=== PATIENT | female | born 1945 | race American Indian/Alaskan Native ===

== ENCOUNTER 2016-06-11 18:21 | Inpatient (IN) | payer MEDICARE, OTHER ==
[2016-06-11 18:21] VITALS: BMI 23.8
--- NOTE | 2016-06-11 18:56 | C.PDOC ---
History Of Present Illness A 70 year old female, whose past medical history includes Lung Cancer and Right Lobectomy, presents to the emergency room with increased shortness of breath that began today. Patient also notes that she experiences baseline persistent tachycardia. There are no exacerbating or relieving factors. Patient denies any chest pain, headaches, dizziness, fever, nausea, vomiting, diarrhea, or any other complaints. Time Seen by Provider: 06/11/16 18:40 Chief Complaint (Nursing): Shortness Of Breath History Per: Patient History/Exam Limitations: no limitations Onset/Duration Of Symptoms: Hrs Current Symptoms Are (Timing): Still Present Severity: Mild Associated Symptoms: denies: Fever, Chest Pain Recent travel outside of the [place]: No Past Medical History Reviewed: Historical Data, Nursing Documentation, Vital Signs Vital Signs: Last Vital Signs Temp 99.4 F 06/11/16 18:34 Pulse 122 H 06/11/16 21:43 Resp 20 06/11/16 21:43 BP 127/81 06/11/16 21:43 Pulse Ox 96 06/11/16 22:52 - Medical History PMH: Anemia, Arthritis, Asthma, Cardia Arrhythmia, COPD, Diabetes, HTN, Hypercholesterolemia, Kidney Stones (CYSTO/STENT 2009), Malignancy (Lung), Pulmonary Embolism, Chronic Kidney Disease Denies: Sleep Apnea Surgical History: Coronary Stent (2004) Denies: Pacemaker - [facility] Procedures CLOSED [PERCUTANEOUS] [NEEDLE] BIOPSY OF LUNG (12/05/13) CYSTOGRAM NEC (11/28/13) DRAINAGE OF RIGHT KNEE JOINT, PERCUTANEOUS APPROACH, DIAGN (01/29/16) EXCISION OF DESCENDING COLON, ENDO, DIAGN (03/25/16) INFLUENZA VACCINATION (01/31/14) INSERT INTERCOSTAL CATH (12/05/13) OTHER LOBECTOMY OF LUNG (01/31/14) RETROGRADE PYELOGRAM (11/28/13) VACCINATION NEC (12/05/13) Family History: States: Unknown Family Hx - Social History Hx Tobacco Use: Yes (former smoker) Hx Alcohol Use: No Hx Substance Use: No - Immunization History Hx Tetanus Toxoid Vaccination: No Hx Influenza Vaccination: No Hx Pneumococcal Vaccination: No Review Of Systems Except As Marked, All Systems Reviewed And Found Negative. Constitutional: Negative for: Fever Cardiovascular: Negative for: Chest Pain Respiratory: Positive for: Shortness of Breath Gastrointestinal: Negative for: Nausea, Vomiting, Diarrhea Neurological: Negative for: Headache, Dizziness Physical Exam - Physical Exam Appears: Well, Non-toxic, No Acute Distress Skin: Normal Color, Warm, Dry Head: Atraumatic, Normacephalic Eye(s): bilateral: Normal Inspection Neck: Normal ROM, Supple Chest: Symmetrical, No Tenderness Cardiovascular: Rhythm Regular, Other (Tachycardic) Respiratory: Decreased Breath Sounds (Diminished breath sounds on the left side) Gastrointestinal/Abdominal: Soft, No Tenderness, No Guarding, No Rebound Extremity: Normal ROM, No Tenderness Neurological/Psych: Oriented x3, Normal Speech, Normal Cognition ED Course And Treatment - Laboratory Results Result Diagrams: 06/11/16 19:42 06/11/16 19:42 Lab Interpretation: Abnormal (d-dimer 35) ECG: Interpreted By Ny ECG Rhythm: Sinus Tachycardia ECG Interpretation: Abnormal Rate From EC O2 Sat by Pulse Oximetry: 96 Pulse Ox Interpretation: Normal - Radiology CXR: Interpreted by Ny CXR Interpretation: Yes: No Acute Disease, Other (+ lung masses, increased from prior) - CT Scan/US Chest CT Other Rad Studies (CT/US): Read By Radiologist, Radiology Report Reviewed CT/US Interpretation: Worsening in appearance/increase in size in previously reported lesions. Additionally, compared to. the prior study, there is a new/ significant increase in size in a cavitary lesion at the right lung base. abutting the pleura measuring approximately 5 cm in maximal dimension. There is also a new large. lesion in the lateral inferior left upper lobe measuring approximately 4.5 cm in maximal dimension. This process appears to extend along the fissure superiorly also abutting the pleura with interstitial. infiltrative process as well as nodularity. Reevaluation Time: 22:44 Reassessment Condition: Improved - Physician Consult Information Outcome Of Conversation: [phone]: calls to Dr. Jin faye to Tele Obs. Consider nuclear VQ scan in AM for suspected PE Medical Decision Making Medical Decision Making: Plan: -- EKG -- CXR -- Labs worstening lung CA, suspect underlying PE, lovenox SQ empirically, pending VQ in AM Code Status? Disposition Doctor Will See Patient In The: Hospital Counseled Patient/Family Regarding: Studies Performed, Diagnosis - Disposition Disposition: HOSPITALIZED Disposition Time: 22:45 Condition: FAIR - Clinical Impression Clinical Impression: Tachycardia, Lung cancer - Scribe Statement The provider has reviewed the documentation as recorded by the Scribe Cliff Magana All medical record entries made by the Scribe were at my direction and personally dictated by me. I have reviewed the chart and agree that the record accurately reflects my personal performance of the history, physical exam, medical decision making, and the department course for this patient. I have also personally directed, reviewed, and agree with the discharge instructions and disposition.
[2016-06-11] MEDS ORDERED: Sodium Chloride 0.9% 1,000 ML IV ONE (19:35)
[2016-06-11] MEDS ORDERED: Sodium Chloride 0.9% 1,000 ML ONE (19:41)
[2016-06-11 19:46] LABS: BASO % 0.1 % (0.0-2.0); HEMATOCRIT 38.2 % (34.0-47.0); LYMPH # 0.9 K/uL (1.0-4.3); LYMPH % 11.3 % (20.0-40.0); MEAN CELL VOLUME 84.6 fL (81.0-99.0); MEAN CORPUSCULAR HGB CONC 33.1 g/dL (33.0-37.0); MEAN PLATELET VOLUME 8.2 fL (7.2-11.7); MONO % 26.5 % (0.0-10.0); NRBC % 0.3 % (0.0-2.0); PLATELET COUNT 148 K/uL (130-400); RED CELL DISTRIBUTION WIDTH 15.2 % (11.5-14.5); WHITE BLOOD COUNT 7.6 K/uL (4.8-10.8)
[2016-06-11 19:55] LABS: POTASSIUM 4.3 mmol/L (3.6-5.2)
[2016-06-11 19:58] LABS: ALB/GLOB RATIO 0.8 (1.0-2.1); BILIRUBIN,TOTAL 0.8 mg/dL (0.2-1.3); CALCIUM 8.3 mg/dl (8.6-10.4); TOTAL PROTEIN 7.3 g/dL (6.3-8.3)
[2016-06-11 20:12] LABS: TROPONIN I 0.104 ng/mL (0.00-0.120)
[2016-06-11] MEDS ORDERED: Enoxaparin 40 mg Syringe SC STA (20:28)
[2016-06-11] MEDS ORDERED: Enoxaparin 80 mg Syringe ONE (20:34)
[2016-06-11 20:44] LABS: NEUTROPHIL 60 % (50-75); TOTAL CELLS COUNTED 100
--- NOTE | 2016-06-11 22:41 | CT ---
EXAM: CT Chest Without Intravenous Contrast CLINICAL HISTORY: 70 years old, female; Pain and signs and symptoms and condition or disease; Other: Lung ca; Shortness of breath; Chest pain; Type not specified; Additional info: R lung ca, ? lobectomy, + tachy/sob TECHNIQUE: Axial computed tomography images of the chest without intravenous contrast. This CT exam was performed using one or more of the following dose reduction techniques: automated exposure control, adjustment of the mA and/or kV according to patient size, and/or use of iterative reconstruction technique. Coronal and sagittal reformatted images were created and reviewed. COMPARISON: CT - CHEST,ABDOMEN,PELVIS W 05/07/2016 1:09:03 PM FINDINGS: Again noted is the previously reported large mass with associated consolidation in the superior segment of the right lower lobe which is slightly increased in size. Anterior to this is a mass measuring approximately 2 cm in maximal dimension. Additional cavitary appearing lesion also noted just inferior to this in the right lower lobe. Compared to the prior study, there is a new/significant increase in size in a cavitary lesion at the right lung base abutting the pleura measuring approximately 5 cm in maximal dimension. There is also a new large lesion in the lateral inferior left upper lobe measuring approximately 4.5 cm in maximal dimension. This process appears to extend along the fissure superiorly also abutting the pleura with interstitial infiltrative process as well as nodularity. Interstitial lung disease, centrilobular emphysema at and focal reticular nodular scarring. Mediastinal and right hilar adenopathy. Evaluation of za limited without intravenous contrast. Atherosclerosis. Coronary artery calcification. 2 cm hypoattenuating lesion noted in the left hepatic lobe. Partial visualization of a severely dilated left collecting system. Evidence of right renal atrophy and dilated collecting system. Appearance is similar to prior study. Question chronic ureteropelvic junction obstruction. IMPRESSION: Worsening in appearance/increase in size in previously reported lesions. Additionally, compared to the prior study, there is a new/significant increase in size in a cavitary lesion at the right lung base abutting the pleura measuring approximately 5 cm in maximal dimension. There is also a new large lesion in the lateral inferior left upper lobe measuring approximately 4.5 cm in maximal dimension. This process appears to extend along the fissure superiorly also abutting the pleura with interstitial infiltrative process as well as nodularity. Please see additional details/findings as above.
[2016-06-11] MEDS ORDERED: Sodium Chloride 0.45% 1,000 ML IV SCH (23:00)
[2016-06-11] MEDS ORDERED: SODIUM CHLORIDE 0.9% IV SCH (23:00)
[2016-06-11] MEDS ORDERED: HEPARIN IV SCH (23:00)
[2016-06-11] MEDS ORDERED: Heparin25000 units/250ml 1/2NS 250 ML IV SCH (23:27)
[2016-06-11] MEDS ORDERED: Heparin25000 units/250ml 1/2NS 250 ML IV PRN (23:42)
[2016-06-12] MEDS ORDERED: MethylPREDNISolone 40 mg Vial ONE ×2 (00:09→05:46)
[2016-06-12 00:23] LABS: INR 1.2
[2016-06-12] MEDS: Albuterol 0.083% Inhal Sol (2.5 mg/3 mL) UD INH SCH ×2 (04:19→10:38)
[2016-06-12 06:11] LABS: BASO % 0.1 % (0.0-2.0); HEMATOCRIT 35.2 % (34.0-47.0); LYMPH # 0.5 K/uL (1.0-4.3); LYMPH % 5.8 % (20.0-40.0); MEAN CELL VOLUME 85.4 fL (81.0-99.0); MEAN CORPUSCULAR HEMOGLOBIN 28.1 pg (27.0-31.0); MEAN CORPUSCULAR HGB CONC 32.9 g/dL (33.0-37.0); MEAN PLATELET VOLUME 7.7 fL (7.2-11.7); MONO % 11.7 % (0.0-10.0); NRBC % 0.1 % (0.0-2.0); PLATELET COUNT 144 K/uL (130-400); RED CELL DISTRIBUTION WIDTH 15.3 % (11.5-14.5); WHITE BLOOD COUNT 8.2 K/uL (4.8-10.8)
[2016-06-12 06:23] LABS: POTASSIUM 4.5 mmol/L (3.6-5.2)
[2016-06-12 06:25] LABS: BILIRUBIN,TOTAL 0.7 mg/dL (0.2-1.3)
[2016-06-12 06:26] LABS: ALB/GLOB RATIO 0.9 (1.0-2.1); CALCIUM 7.3 mg/dl (8.6-10.4); TOTAL PROTEIN 6.5 g/dL (6.3-8.3)
[2016-06-12] MEDS ORDERED: (Novolog) Insulin Aspart, Recombinant 100 u/ml 10 ml vial ONE (07:35)
[2016-06-12] MEDS: (Novolog) Insulin Aspart, Recombinant 100 u/ml 10 ml vial SC SCH ×4 (07:37→23:21)
[2016-06-12 08:18] LABS: NEUTROPHIL 70 % (50-75); TOTAL CELLS COUNTED 100
--- NOTE | 2016-06-12 08:21 | RAD ---
PROCEDURE: CHEST RADIOGRAPH, 1 VIEW HISTORY: Shortness of breath COMPARISON: 05/07/2016 FINDINGS: LUNGS: Persistent large mass in the right suprahilar region. Additional patchy consolidation in the lateral aspect of the left midlung zone. Patchy bibasilar airspace opacities. PLEURA: No pneumothorax or pleural fluid seen. CARDIOVASCULAR: Normal. OSSEOUS STRUCTURES: No significant abnormalities. VISUALIZED UPPER ABDOMEN: Normal. OTHER FINDINGS: Right chest wall port with tip extending to the cavoatrial junction. IMPRESSION: Persistent large mass in the right suprahilar region. Additional patchy consolidation in the lateral aspect of the left midlung zone. Patchy bibasilar airspace opacities.
[2016-06-12] MEDS ORDERED: (Novolog) Insulin Aspart, Recombinant 100 u/ml 10 ml vial SC SCH (10:00)
[2016-06-12] MEDS ORDERED: Albuterol-Ipratrop 3 mg / 0.5 (3 ml) UD INH STA (10:06)
[2016-06-12] MEDS ORDERED: Albuterol-Ipratrop 3 mg / 0.5 (3 ml) UD ONE (10:12)
[2016-06-12] MEDS ORDERED: Sodium Chloride 0.9% 1,000 ML ONE (10:21)
[2016-06-12] MEDS: Pantoprazole 40 mg EC Tab PO SCH (10:29)
[2016-06-12] MEDS: GlipiZIDE 5 mg SR Tab PO SCH (10:29)
[2016-06-12] MEDS: Promethazine DM 6.25 mg-15 mg/5 ml Syrup PO SCH ×4 (10:37→18:31)
--- NOTE | 2016-06-12 12:39 | NM ---
COMPARISON: Comparison is made to the previous CT of the chest without contrast done on 06/11/2016 previous Lantus scan dated 04/29/2016. TECHNIQUE: 8.2 mCi technetium 99-m Xe-133 Gas. 3.4 mCI technetium 99-m MAA administered intravenously. FINDINGS: VENTILATION COMPONENT: Moderate size ventilation defect is again noted at the right upper lung similar to the previous study. PERFUSION COMPONENT: Interval appearance of new nonsegmental perfusion defect at the peripheral left lung since the previous exam. This perfusion defect is likely corresponding to the new consolidation seen in the recent CT along the left fissure. Otherwise re- demonstration of previously seen perfusion defects in the right lung. IMPRESSION: Interval appearance of small nonsegmental triple match defects at the left lung. Re- demonstration of previously seen triple match defects in the right lung. Low to intermediate probability ventilation perfusion scan for pulmonary embolism.
[2016-06-12] MEDS: Albuterol-Ipratrop 3 mg / 0.5 (3 ml) UD INH SCH ×2 (13:59→19:20)
[2016-06-12 14:22] LABS: POTASSIUM 3.9 mmol/L (3.6-5.2)
[2016-06-12 14:24] LABS: ALB/GLOB RATIO 0.8 (1.0-2.1); BILIRUBIN,TOTAL 0.4 mg/dL (0.2-1.3); TOTAL PROTEIN 6.4 g/dL (6.3-8.3)
[2016-06-12 14:25] LABS: CALCIUM 7.4 mg/dl (8.6-10.4)
--- NOTE | 2016-06-12 14:42 | CON ---
DATE: 06/12/2016 REASON FOR CONSULTATION: Shortness of breath and chest discomfort. HISTORY OF PRESENT ILLNESS: The patient is a 70-year-old -[place] female who has a history o f squamous cell carcinoma, underwent right upper lobectomy in 2003 and now she is being treated for r ecurrence with chemotherapy. The patient has a history of chronic renal insufficiency as well as chu ateral hydronephrosis. The patient also has intermediate probability for pulmonary embolism in the p ast and is being treated for that. The patient has a history of pancytopenia and epistaxis in the pa st. She presented because of shortness of breath and chest discomfort. She denies any recurrence of epistaxis and denies any hemoptysis. SOCIAL HISTORY: The patient is a former smoker. MEDICATIONS: Hydralazine 50 mg t.i.d., Coreg 3.125 mg twice a day, Crestor 10 mg once a day, glipizi de at 5 mg once a day, intravenous heparin infusion in a therapeutic regimen for pulmonary embolism. Phenergan DM syrup 6.25 mg t.i.d., Singulair 10 mg once a day, Solu-Medrol 40 mg intravenously q. 6 hours, Protonix 40 mg p.o. once a day. REVIEW OF SYSTEMS: No fever or chills. No hemoptysis. No epistaxis. No dizziness or syncope. PHYSICAL EXAMINATION: GENERAL: The patient is an elderly female who does not appear to be in acute distress. VITAL SIGNS: Blood pressure 108/72, heart rate 105, temperature 97.5, respirations 20. HEENT: Normocephalic. NECK: No JVD. CHEST: Bilateral rhonchi, diminished breath sounds over the right base. HEART: S1, S2 regular. ABDOMEN: Soft. EXTREMITIES: No edema and no calf tenderness. LABORATORY DATA: CBC: WBC 8.2, hemoglobin 11.6, hematocrit 35.2, platelet count 144,000. SMA-7: S odium 135, potassium 4.5, chloride 97, CO2 21, glucose 423, BUN 27, creatinine 1.9. D-dimer 3558. T he latest PTT is 47. INR is 1.2. A ventilation perfusion scan is low to intermediate probability fo r pulmonary embolism. Chest CT scan revealed worsening in appearance and increase in size in the pre viously reported lesions. Additionally, there is a new significant increase in the size of a cavitar y lesion in the right lung base measuring 5 cm in maximum dimension. There is also a new large lesio n in the lateral inferior upper lobe measuring 4.5 cm in maximal dimension EKG revealed sinus tachycardia at rate of 156. Chest x-ray revealed normal cardiac silhouette, mild vascular congestion; right middle lobe and right upper lobe opacities consistent with the previously diagnosed lung mass lesions. ASSESSMENT: 1. Recurrent lung carcinoma. 2. Low to intermediate probability of pulmonary embolus. 3. Chronic renal insufficiency. 4. Uncontrolled diabetes mellitus. 5. Mild pulmonary hypertension on the most recent echo in April of this year. The patient's righ t ventricular systolic pressure was in the range of 40-50 mmHg with normal ejection fraction. RECOMMENDATIONS: Continue current intravenous heparin in a therapeutic regimen for pulmonary embolis m. Continue Coreg at 3.125 mg twice a day, hydralazine at 50 mg t.i.d., Solu-Medrol 40 mg intravenou sly q. 6 hours, Singulair at 10 mg daily. I will schedule venous Doppler of the lower extremities. Parrish Bailey MD cc: [id number] TT: 06/12/2016 14:41:59 Confirmation # [id number] Dictation # [id number]
[2016-06-12 14:48] LABS: BASO % 0.1 % (0.0-2.0); HEMATOCRIT 33.2 % (34.0-47.0); LYMPH # 0.4 K/uL (1.0-4.3); LYMPH % 3.3 % (20.0-40.0); MEAN CELL VOLUME 86.1 fL (81.0-99.0); MEAN CORPUSCULAR HEMOGLOBIN 27.9 pg (27.0-31.0); MEAN CORPUSCULAR HGB CONC 32.4 g/dL (33.0-37.0); MEAN PLATELET VOLUME 8.6 fL (7.2-11.7); MONO # 1.7 K/uL (0.0-0.8); MONO % 15.6 % (0.0-10.0); NRBC % 0.1 % (0.0-2.0); PLATELET COUNT 156 K/uL (130-400); RED CELL DISTRIBUTION WIDTH 15.2 % (11.5-14.5); WHITE BLOOD COUNT 10.7 K/uL (4.8-10.8)
--- NOTE | 2016-06-12 14:59 | CP.PCM.CON ---
History of Present Illness - History of Present Illness History of Present Illness: CHART REVIEWED, PT SEEN AND EXAMINED. 70 YO B FEMALE WITH A HX RECURRENT LUNG CA WITH METS, S/P SURG, CHEMO, RT, COPD , AFIB, GOUT, HTN, DM, PE, ADM 06/11/16 WITH INCREASED MOD SOB AT REST + PALPITATIONS X FEW DAYS, NO COUGH., NO HOME O2. ON COUMADIN. NO CP. AMBULATES INDEPEND. Review of Systems - Review of Systems All systems: reviewed and no additional remarkable complaints except - Constitutional Constitutional: absent: Daytime Sleepiness - EENT Eyes: absent: Change in Vision Ears: absent: Decreased Hearing Nose/Mouth/Throat: absent: Nasal Congestion, Dysphagia - Cardiovascular Cardiovascular: Dyspnea, Palpitations. absent: Chest Pain - Respiratory Respiratory: Dyspnea, Dyspnea on Exertion. absent: Cough, Chest Congestion - Gastrointestinal Gastrointestinal: absent: Nausea, Vomiting - Genitourinary Genitourinary: absent: Difficulty Urinating - Musculoskeletal Musculoskeletal: absent: Back Pain - Integumentary Integumentary: absent: Rash - Neurological Neurological: absent: Focal Weakness - Psychiatric Psychiatric: absent: Change in Appetite - Endocrine Endocrine: absent: Change in Body Appearance - Hematologic/Lymphatic Hematologic: absent: Easy Bleeding Past Patient History - Past Medical History & Family History Past Medical History?: Yes Past Family History: Reviewed and not pertinent - Past Social History Smoking Status: Former Smoker Alcohol: None Drugs: Denies - CARDIAC Hx Cardia Arrhythmia: Yes Hx Hypercholesterolemia: Yes Hx Hypertension: Yes Hx Pacemaker: No - PULMONARY Hx Asthma: Yes Hx Chronic Obstructive Pulmonary Disease (COPD): Yes Hx Pulmonary Embolism: Yes Hx Sleep Apnea: No - NEUROLOGICAL Hx Neurological Disorder: No Hx Paralysis: No - HEENT Hx HEENT Problems: Yes Hx Epistaxis: Yes Other/Comment: eye glasses for reading - RENAL Hx Chronic Kidney Disease: Yes Hx Kidney Stones: Yes (CYSTO/STENT 2009) - ENDOCRINE/METABOLIC Hx Endocrine Disorders: Yes Hx Diabetes Mellitus Type 2: Yes - HEMATOLOGICAL/ONCOLOGICAL Hx Anemia: Yes - INTEGUMENTARY Hx Dermatological Problems: No - MUSCULOSKELETAL/RHEUMATOLOGICAL Hx Arthritis: Yes Hx Falls: No Hx Gout: Yes - GASTROINTESTINAL Hx Gastrointestinal Disorders: Yes Hx Constipation: Yes - GENITOURINARY/GYNECOLOGICAL Hx Genitourinary Disorders: Yes - PSYCHIATRIC Hx Substance Use: No - SURGICAL HISTORY Hx Coronary Stent: Yes (2004) Hx Pulmonary Surgery: Yes - ANESTHESIA Hx Anesthesia: Yes Hx Anesthesia Reactions: No Hx Malignant Hyperthermia: No Meds Allergies/Adverse Reactions: Allergies Allergy/AdvReac Type Severity Reaction Status Date / Time No Known Allergies Allergy Verified 06/28/16 13:21 - Medications Medications: Current Medications Acetaminophen (Tylenol 325mg Tab) 650 mg PO Q6 PRN PRN Reason: Fever >100.4 F Albuterol/Ipratropium (Duoneb 3 Mg/0.5 Mg (3 Ml) Ud) 3 ml INH RQ6 [facility] Last Admin: 06/12/16 13:59 Dose: 3 ml Carvedilol (Coreg) 3.125 mg PO BID [facility] Last Admin: 06/12/16 10:29 Dose: 3.125 mg Glipizide (Glucotrol Xl) 5 mg PO DAILY [facility] Last Admin: 06/12/16 10:29 Dose: 5 mg Hydralazine HCl (Apresoline) 50 mg PO TID [facility] Last Admin: 06/12/16 14:50 Dose: Not Given Heparin Sodium/Sodium Chloride (Heparin 74360 Units/250ml 1/2 Normal Saline) 250 mls @ 13.88 mls/hr IV .Q18H1M PRN; Protocol; 18 UNITS/KG/HR PRN Reason: PROTOCOL Last Admin: 06/12/16 07:03 Dose: 13.88 mls/hr Insulin Aspart (Novolog) 0 unit SC ACHS [facility] PRN Reason: Protocol Last Admin: 06/12/16 13:15 Dose: 5 unit Methylprednisolone (Solu-Medrol) 40 mg IV Q6 [facility] Montelukast Sodium (Singulair) 10 mg PO DAILY [facility] Last Admin: 06/12/16 10:29 Dose: 10 mg Pantoprazole Sodium (Protonix Ec Tab) 40 mg PO DAILY [facility] Last Admin: 06/12/16 10:29 Dose: 40 mg Promethazine HCl/Dextromethorphan (Phenergan Dm Syrup) 6.25 ml PO TID [facility] Last Admin: 06/12/16 14:49 Dose: 6.25 ml Rosuvastatin Calcium (Crestor) 10 mg PO QPM [facility] Physical Exam - Constitutional Appears: No Acute Distress, Chronically Ill - Head Exam Head Exam: ATRAUMATIC, NORMOCEPHALIC - Eye Exam Eye Exam: EOMI, Normal appearance - ENT Exam ENT Exam: Mucous Membranes Moist - Neck Exam Neck exam: Negative for: Tenderness - Respiratory Exam Respiratory Exam: absent: Accessory Muscle Use, Wheezes - Cardiovascular Exam Cardiovascular Exam: Tachycardia, Irregular Rhythm, RRR, +S1, +S2 - GI/Abdominal Exam GI & Abdominal Exam: Soft. absent: Mass, Tenderness - Rectal Exam Rectal Exam: Deferred - Extremities Exam Extremities exam: Negative for: calf tenderness, pedal edema - Back Exam Back exam: absent: CVA tenderness (L), CVA tenderness (R) - Neurological Exam Neurological exam: Alert, CN II-XII Intact, Oriented x3 - Psychiatric Exam Psychiatric exam: Normal Affect Results - Vital Signs Recent Vital Signs: Last Vital Signs Temp 97.5 F L 06/12/16 06:19 Pulse 118 H 06/12/16 11:59 Resp 20 06/12/16 11:29 BP 108/72 06/12/16 11:29 Pulse Ox 95 06/12/16 11:59 - Labs Result Diagrams: 06/19/16 06:30 06/20/16 07:21 Labs: Laboratory Results - last 24 hr 06/11/16 06/12/16 06/12/16 23:43 00:00 06:02 WBC 8.2 RBC 4.12 Hgb 11.6 Hct 35.2 MCV 85.4 MCH 28.1 MCHC 32.9 L RDW 15.3 H Plt Count 144 MPV 7.7 Neut % (Auto) 82.4 H Lymph % (Auto) 5.8 L Hod[place]eman % (Auto) 11.7 H Eos % (Auto) 0.0 Baso % (Auto) 0.1 Neut # 6.8 Lymph # 0.5 L Hodgeman # 1.0 H Eos # 0.0 Baso # 0.0 Neutrophils % (Manual) 70 Band Neutrophils % 16 H* Lymphocytes % (Manual) 1 L Monocytes % (Manual) 13 H Toxic Granulation Present Platelet Estimate Normal Hypochromasia (manual) Slight Poikilocytosis (manual Slight Anisocytosis (manual) Slight [place] Cells Slight PT 14.3 H INR 1.2 APTT 47 H Sodium 135 Potassium 4.5 Chloride 97 L Carbon Dioxide 21 L Anion Gap 22 H BUN 27 H Creatinine 1.9 H Est GFR ( Amer) 32 Est GFR (Non-Af Amer) 26 POC Glucose (mg/dL) 284 H Random Glucose 423 H* D Calcium 7.3 L Total Bilirubin 0.7 AST 25 ALT 51 Alkaline Phosphatase 128 H Total Protein 6.5 Albumin 3.0 L Globulin 3.4 Albumin/Globulin Ratio 0.9 L 06/12/16 06/12/16 06/12/16 07:31 11:43 11:59 WBC RBC Hgb Hct MCV MCH MCHC RDW Plt Count MPV Neut % (Auto) Lymph % (Auto) Hod[place]eman % (Auto) Eos % (Auto) Baso % (Auto) Neut # Lymph # [place] # Eos # Baso # Neutrophils % (Manual) Band Neutrophils % Lymphocytes % (Manual) Monocytes % (Manual) Toxic Granulation Platelet Estimate Hypochromasia (manual) Poikilocytosis (manual Anisocytosis (manual) [place] Cells PT INR APTT Sodium Potassium Chloride Carbon Dioxide Anion Gap BUN Creatinine Est GFR ( Amer) Est GFR (Non-Af Amer) POC Glucose (mg/dL) 380 H 377 H 383 H Random Glucose Calcium Total Bilirubin AST ALT Alkaline Phosphatase Total Protein Albumin Globulin Albumin/Globulin Ratio 06/12/16 14:08 WBC 10.7 RBC 3.86 Hgb 10.8 L Hct 33.2 L MCV 86.1 MCH 27.9 MCHC 32.4 L RDW 15.2 H Plt Count 156 MPV 8.6 Neut % (Auto) 81.0 H Lymph % (Auto) 3.3 L [place]eman % (Auto) 15.6 H Eos % (Auto) 0.0 Baso % (Auto) 0.1 Neut # 8.7 H Lymph # 0.4 L Hodgeman # 1.7 H Eos # 0.0 Baso # 0.0 Neutrophils % (Manual) Band Neutrophils % Lymphocytes % (Manual) Monocytes % (Manual) Toxic Granulation Platelet Estimate Hypochromasia (manual) Poikilocytosis (manual Anisocytosis (manual) [place]ilsa Cells PT INR APTT 136 H* D Sodium 132 Potassium 3.9 Chloride 98 Carbon Dioxide 21 L Anion Gap 17 BUN 28 H Creatinine 1.8 H Est GFR ( Amer) 34 Est GFR (Non-Af Amer) 28 POC Glucose (mg/dL) Random Glucose 486 H* Calcium 7.4 L Total Bilirubin 0.4 AST 23 ALT 53 H Alkaline Phosphatase 122 Total Protein 6.4 Albumin 2.8 L Globulin 3.6 Albumin/Globulin Ratio 0.8 L Assessment & Plan (1) Respiratory failure with hypoxia Status: Acute (2) Diabetes Status: Acute (3) CAD (coronary artery disease) Status: Acute (4) COPD exacerbation Status: Acute (5) CKD (chronic kidney disease) Status: Acute (6) Lung cancer Status: Acute (7) Pulmonary embolism Status: Acute (8) Hypertension Status: Acute (9) SVT (supraventricular tachycardia) Status: Acute (10) Uncontrolled diabetes mellitus with diabetic nephropathy Status: Acute (11) Tachycardia Status: Acute - Assessment and Plan (Free Text) Assessment: 70 YO FEMALE WITH A HX MULT MED PROBS ADM WITH RAPID AFIB, R/O PE., COPD EXAC. , METASTATIC LUNG CA, CONT IV HEPARIN, MONITOR INR., MONITOR O2 SAT., 94% ON 2L NOW., NEB BD, V/Q REVIEWED., CXR REVIEWED., PROG GUARDED. DISCUSSED WITH STAFF.
[2016-06-12 15:08] LABS: NEUTROPHIL 71 % (50-75); TOTAL CELLS COUNTED 100
[2016-06-12] MEDS: Heparin25000 units/250ml 1/2NS 250 ML IV PRN (16:14)
[2016-06-12] MEDS: MethylPREDNISolone 40 mg Vial IV SCH (18:18)
--- NOTE | 2016-06-12 19:43 | HP ---
The patient is a 70-year-old female with history of CA of the lung, and hypertension. The patient ca me to the Emergency Room because the patient was complaining of shortness of breath, also the patient was found to complain of palpitations, so the patient came to the Emergency Room and was evaluated i n the Emergency Room where patient was admitted. ALLERGY: The patient has no known allergy. PAST MEDICAL HISTORY: History of CA of the lung, and pulmonary embolism, and also COPD. SOCIAL HISTORY: The patient has a history of smoking, but has stopped it for the past 2 or 3 years. No history of alcohol abuse. FAMILY HISTORY: No inherited disease. PAST MEDICAL HISTORY: The patient has history of anemia, arthritis, COPD as I said, a cardiac arrhyt hmia, history of diabetes, hyperlipidemia, hypertension, and also the patient has history of lung CA, and chronic kidney disease, and also the patient has history of bilateral hydronephrosis. REVIEW OF SYSTEMS: Respiratory system, as I mentioned, presented with shortness of breath, and posit bharath for cough with whitish sputum improved from . The patient has been having some palpitation at the time. GASTROINTESTINAL: No nausea, vomiting. GENITOURINARY: No dysuria. NEUROLOGIC: The patient feels very weak. On physical exam the patient is alert and awake, and oriented x 3. The blood pressure is 107/64, pul se is in the range of 105-112, and respiration is 20, temperature 97.8. NECK: Supple. LUNGS: He has some wheezing noted, and rales at the bases. HEART: Tachycardic. ABDOMEN: Soft, nontender, no palpable mass. EXTREMITIES: There is no edema. The patient has some blood tests done. The 1st blood test showed a WBC 7.6, hemoglobin 12.6, hematoc rit 38.2, and platelet is 148. Chemistry showed a sodium 135, potassium 4.5, chloride 97, bicarb 21, BUN 27, creatinine 1.9, glucose is 423, calcium 4.3. AST 25, ALT 61, alkaline phosphatase 128, and the D-dimer is elevated at 3,558. The PT is 14.3, INR 1.2, and PTT is 47. Blood test done today showed that the V/Q scan was done, and there was an interval appearance of new segment-type perfusion defect at the peripheral left lung seen in the previous exam. This perfusion defect is likely corresponding to the new consolidation seen in the recent CT along the left fissure. The CT of the chest showed a large mass with associated consolidation in the superior segment of th e right lower lobe, which is slightly increased in size, and there is some addition cavity-appearing lesion also noted just inferior to this in the left lower lobe. The chest x-ray that was done also h as shown large mass in the right suprahilar region consistent with no known lung cancer. So the patient will be admitted with the diagnoses of: 1. Known pulmonary embolism. 2. Carcinoma of the lung. 3. Cardiac arrhythmia. 4. Chronic obstructive pulmonary disease. 5. Diabetes. 6. Hypertension. So, the patient will have a consult with Dr. Casillas, pulmonary, and also Dr. Bailey, cardiology. Isak Mark MD cc: [id number] TT: 06/12/2016 19:42:47 jn
[2016-06-12 22:00] LABS: VENOUS BLOOD GAS PCO2 32 mmHg (40-60); VENOUS BLOOD PH 7.31 (7.32-7.43)
[2016-06-12 22:19] LABS: URINE BILIRUBIN NEGATIVE (NEGATIVE); URINE BLOOD 1+ (NEGATIVE); URINE COLOR Yellow (YELLOW); URINE GLUCOSE (UA) 3+ mg/dL (Normal); URINE KETONE NEGATIVE (NEGATIVE); URINE LEUKOCYTE ESTERASE NEG Leu/uL (Negative); URINE PROTEIN 2+ mg/dL (NEGATIVE); URINE UROBILINOGEN NORMAL mg/dL (0.2-1.0); WBC URINE 1 /hpf (0-5)
[2016-06-12 22:20] LABS: RBC URINE 5 /hpf (0-3); URINE BACTERIA RARE (<OCC)
[2016-06-12] MEDS ORDERED: Digoxin 125 mcg (0.125 mg) Tab PO STA (22:28)
[2016-06-12] MEDS ORDERED: Vancomycin 1 gm/NS 200 ml 200 ML IVPB STA (22:42)
[2016-06-12] MEDS ORDERED: cefTRIAXone IV 1 gm in Dextros 50 ML IVPB SCH (23:00)
[2016-06-12] MEDS: Piperacill/Tazo 2.25gm in Dex 50 ML IVPB SCH (23:13)
[2016-06-12] MEDS: Azithromycin 500 MG in Sodium Chloride 0.9% 250 ML IVPB SCH (23:15)
[2016-06-13] MEDS: MethylPREDNISolone 40 mg Vial IV SCH ×4 (00:22→18:16)
[2016-06-13] MEDS ORDERED: Potassium Chloride 10 mEq 100 ML IVPB ONE ×3 (01:00→02:00)
[2016-06-13] MEDS: Albuterol-Ipratrop 3 mg / 0.5 (3 ml) UD INH SCH ×4 (01:11→19:19)
[2016-06-13] MEDS: Heparin25000 units/250ml 1/2NS 250 ML IV PRN (04:22)
[2016-06-13 05:21] LABS: BASO % 0.3 % (0.0-2.0); HEMATOCRIT 30.9 % (34.0-47.0); LYMPH # 0.5 K/uL (1.0-4.3); LYMPH % 3.7 % (20.0-40.0); MEAN CELL VOLUME 86.9 fL (81.0-99.0); MEAN CORPUSCULAR HEMOGLOBIN 27.8 pg (27.0-31.0); MEAN PLATELET VOLUME 8.5 fL (7.2-11.7); MONO # 1.7 K/uL (0.0-0.8); NRBC % 0.2 % (0.0-2.0); PLATELET COUNT 140 K/uL (130-400); RED CELL DISTRIBUTION WIDTH 15.3 % (11.5-14.5); WHITE BLOOD COUNT 13.1 K/uL (4.8-10.8)
[2016-06-13 05:36] LABS: POTASSIUM 4.8 mmol/L (3.6-5.2)
[2016-06-13 05:38] LABS: BILIRUBIN,TOTAL 0.1 mg/dL (0.2-1.3)
[2016-06-13 05:39] LABS: ALB/GLOB RATIO 0.9 (1.0-2.1); CALCIUM 7.1 mg/dl (8.6-10.4); TOTAL PROTEIN 5.7 g/dL (6.3-8.3)
[2016-06-13] MEDS ORDERED: (Novolin R) Insulin Human Regular 100 units/ml vial SC STA (05:53)
[2016-06-13] MEDS: Piperacill/Tazo 2.25gm in Dex 50 ML IVPB SCH ×3 (06:11→21:56)
--- NOTE | 2016-06-13 06:28 | CARD ---
APPROVED REPORT EKG Measurement Heart [id number] <Conclusion> Sinus tachycardia Otherwise normal ECG
[2016-06-13 07:10] LABS: NEUTROPHIL 75 % (50-75); REACTIVE LYMPHOCYTES 2 % (0-0); TOTAL CELLS COUNTED 100
[2016-06-13] MEDS ORDERED: Heparin25000 units/250ml 1/2NS 250 ML IV PRN (07:45)
[2016-06-13] MEDS: GlipiZIDE 5 mg SR Tab PO SCH (10:50)
[2016-06-13] MEDS: Pantoprazole 40 mg EC Tab PO SCH (10:50)
[2016-06-13] MEDS: Promethazine DM 6.25 mg-15 mg/5 ml Syrup PO SCH ×3 (10:51→18:03)
--- NOTE | 2016-06-13 11:03 | CP.PCM.PN ---
Subjective - Date & Time of Evaluation Date of Evaluation: 06/13/16 Time of Evaluation: 11:00 - Subjective Subjective: PT ALERT, FEELS SL BETTER., +COUGH, NO SPUTUM. LESS CHEST TIGHTNESS. ROS: OTHERWISE NEG Objective - Vital Signs/Intake and Output Vital Signs (last 24 hours): Temp Pulse Resp BP Pulse Ox 97.4 F L 103 H 20 134/81 100 06/13/16 04:35 06/13/16 08:59 06/13/16 04:35 06/13/16 04:35 06/13/16 04:35 Intake and Output: 06/13/16 06/13/16 06:59 18:59 Intake Total 1200 Balance 1200 - Medications Medications: Current Medications Acetaminophen (Tylenol 325mg Tab) 650 mg PO Q6 PRN PRN Reason: Fever >100.4 F Last Admin: 06/12/16 21:20 Dose: 650 mg Albuterol/Ipratropium (Duoneb 3 Mg/0.5 Mg (3 Ml) Ud) 3 ml INH RQ6 [facility] Last Admin: 06/13/16 08:27 Dose: 3 ml Carvedilol (Coreg) 3.125 mg PO BID [facility] Last Admin: 06/13/16 10:50 Dose: 3.125 mg Digoxin (Lanoxin) 0.125 mg PO DAILY@1800 [facility] Glipizide (Glucotrol Xl) 5 mg PO DAILY [facility] Last Admin: 06/13/16 10:50 Dose: 5 mg Azithromycin 500 mg/ Sodium (Chloride) 250 mls @ 250 mls/hr IVPB Q24H [facility] Last Admin: 06/12/16 23:15 Dose: 250 mls/hr Piperacillin Sod/Tazobactam Sod (Zosyn 2.25 Gm Iv Premix) 50 mls @ 100 mls/hr IVPB Q8H [facility] Last Admin: 06/13/16 06:11 Dose: 100 mls/hr Heparin Sodium/Sodium Chloride (Heparin 44715 Units/250ml 1/2 Normal Saline) 250 mls @ 9.253 mls/hr IV .Q24H PRN; Protocol; 12 UNITS/KG/HR PRN Reason: PROTOCOL Insulin Aspart (Novolog) 0 unit SC ACHS [facility] PRN Reason: Protocol Methylprednisolone (Solu-Medrol) 40 mg IV Q6 [facility] Last Admin: 06/13/16 06:07 Dose: 40 mg Montelukast Sodium (Singulair) 10 mg PO DAILY [facility] Last Admin: 06/12/16 10:29 Dose: 10 mg Pantoprazole Sodium (Protonix Ec Tab) 40 mg PO DAILY [facility] Last Admin: 06/13/16 10:50 Dose: 40 mg Promethazine HCl/Dextromethorphan (Phenergan Dm Syrup) 6.25 ml PO TID [facility] Last Admin: 06/13/16 10:51 Dose: 6.25 ml Rosuvastatin Calcium (Crestor) 10 mg PO QPM [facility] Last Admin: 06/12/16 18:18 Dose: 10 mg - Labs Labs: 06/13/16 05:19 06/13/16 05:19 PT 14.3 SECONDS (9.7-12.2) H 06/12/16 00:00 INR 1.2 06/12/16 00:00 APTT 124 SECONDS (21-34) H* D 06/13/16 05:19 - Constitutional Appears: No Acute Distress, Chronically Ill - Head Exam Head Exam: ATRAUMATIC, NORMOCEPHALIC - Eye Exam Eye Exam: EOMI, Normal appearance - ENT Exam ENT Exam: Mucous Membranes Moist - Neck Exam Neck Exam: absent: Tenderness - Respiratory Exam Respiratory Exam: Prolonged Expiratory Phase. absent: Accessory Muscle Use, Wheezes - Cardiovascular Exam Cardiovascular Exam: Tachycardia - GI/Abdominal Exam GI & Abdominal Exam: Soft. absent: Tenderness - Rectal Exam Rectal Exam: Deferred - Extremities Exam Extremities Exam: absent: Calf Tenderness, Pedal Edema - Back Exam Back Exam: absent: CVA tenderness (L), CVA tenderness (R) - Neurological Exam Neurological Exam: Alert, Awake, CN II-XII Intact, Oriented x3 - Psychiatric Exam Psychiatric exam: Normal Affect - Skin Skin Exam: absent: Rash Assessment and Plan (1) Lung cancer Status: Acute (2) SVT (supraventricular tachycardia) Status: Acute (3) Tachycardia Status: Acute (4) Uncontrolled diabetes mellitus with diabetic nephropathy Status: Acute (5) CAD (coronary artery disease) Status: Acute (6) CKD (chronic kidney disease) Status: Acute (7) COPD exacerbation Status: Acute (8) Diabetes Status: Acute (9) Hypertension Status: Acute (10) Pulmonary embolism Status: Acute (11) Respiratory failure with hypoxia Status: Acute - Assessment and Plan (Free Text) Assessment: RESP STATUS IMPROVED, HR BETTER CONTROLLED. CONT IV HEPARIN, MONITOR COAGS., TAPER STEROIDS, GLUCOSE>400. CONT NEB BD., ADVAIR., SINGULAIR., CT CHEST REVIEWED., PROGRESSIVE LUNG CA NOTED., AFEBRILE ON AB., F/U ECHO. PROG POOR. DISCUSSED WITH STAFF AND DR CORREA.
--- NOTE | 2016-06-13 11:18 | CP.PCM.CON ---
History of Present Illness - History of Present Illness History of Present Illness: dictated Past Patient History - Past Medical History & Family History Past Medical History?: Yes Past Family History: Reviewed and not pertinent - Past Social History Smoking Status: Former Smoker Alcohol: None Drugs: Denies - CARDIAC Hx Cardia Arrhythmia: Yes Hx Hypercholesterolemia: Yes Hx Hypertension: Yes Hx Pacemaker: No - PULMONARY Hx Asthma: Yes Hx Chronic Obstructive Pulmonary Disease (COPD): Yes Hx Pulmonary Embolism: Yes Hx Sleep Apnea: No - NEUROLOGICAL Hx Neurological Disorder: No Hx Paralysis: No - HEENT Hx HEENT Problems: Yes Hx Epistaxis: Yes Other/Comment: eye glasses for reading - RENAL Hx Chronic Kidney Disease: Yes Hx Kidney Stones: Yes (CYSTO/STENT 2009) - ENDOCRINE/METABOLIC Hx Endocrine Disorders: Yes Hx Diabetes Mellitus Type 2: Yes - HEMATOLOGICAL/ONCOLOGICAL Hx Anemia: Yes - INTEGUMENTARY Hx Dermatological Problems: No - MUSCULOSKELETAL/RHEUMATOLOGICAL Hx Arthritis: Yes Hx Falls: No Hx Gout: Yes - GASTROINTESTINAL Hx Gastrointestinal Disorders: Yes Hx Constipation: Yes - GENITOURINARY/GYNECOLOGICAL Hx Genitourinary Disorders: Yes - PSYCHIATRIC Hx Substance Use: No - SURGICAL HISTORY Hx Coronary Stent: Yes (2004) Hx Pulmonary Surgery: Yes - ANESTHESIA Hx Anesthesia: Yes Hx Anesthesia Reactions: No Hx Malignant Hyperthermia: No Meds Allergies/Adverse Reactions: Allergies Allergy/AdvReac Type Severity Reaction Status Date / Time No Known Allergies Allergy Verified 04/18/16 22:54 - Medications Medications: Current Medications Acetaminophen (Tylenol 325mg Tab) 650 mg PO Q6 PRN PRN Reason: Fever >100.4 F Last Admin: 06/12/16 21:20 Dose: 650 mg Albuterol/Ipratropium (Duoneb 3 Mg/0.5 Mg (3 Ml) Ud) 3 ml INH RQ6 [facility] Last Admin: 06/13/16 08:27 Dose: 3 ml Carvedilol (Coreg) 3.125 mg PO BID [facility] Last Admin: 06/13/16 10:50 Dose: 3.125 mg Digoxin (Lanoxin) 0.125 mg PO DAILY@1800 [facility] Glipizide (Glucotrol Xl) 5 mg PO DAILY [facility] Last Admin: 06/13/16 10:50 Dose: 5 mg Azithromycin 500 mg/ Sodium (Chloride) 250 mls @ 250 mls/hr IVPB Q24H [facility] Last Admin: 06/12/16 23:15 Dose: 250 mls/hr Piperacillin Sod/Tazobactam Sod (Zosyn 2.25 Gm Iv Premix) 50 mls @ 100 mls/hr IVPB Q8H [facility] Last Admin: 06/13/16 06:11 Dose: 100 mls/hr Heparin Sodium/Sodium Chloride (Heparin 40531 Units/250ml 1/2 Normal Saline) 250 mls @ 9.253 mls/hr IV .Q24H PRN; Protocol; 12 UNITS/KG/HR PRN Reason: PROTOCOL Insulin Aspart (Novolog) 0 unit SC ACHS [facility] PRN Reason: Protocol Methylprednisolone (Solu-Medrol) 40 mg IV Q8H [facility] Montelukast Sodium (Singulair) 10 mg PO DAILY [facility] Last Admin: 06/12/16 10:29 Dose: 10 mg Pantoprazole Sodium (Protonix Ec Tab) 40 mg PO DAILY [facility] Last Admin: 06/13/16 10:50 Dose: 40 mg Promethazine HCl/Dextromethorphan (Phenergan Dm Syrup) 6.25 ml PO TID [facility] Last Admin: 06/13/16 10:51 Dose: 6.25 ml Rosuvastatin Calcium (Crestor) 10 mg PO QPM [facility] Last Admin: 06/12/16 18:18 Dose: 10 mg Results - Vital Signs Recent Vital Signs: Last Vital Signs Temp 97.4 F L 06/13/16 04:35 Pulse 103 H 06/13/16 08:59 Resp 20 06/13/16 04:35 BP 134/81 06/13/16 04:35 Pulse Ox 100 06/13/16 04:35 - Labs Result Diagrams: 06/13/16 05:19 06/13/16 05:19 Labs: Laboratory Results - last 24 hr 06/12/16 06/12/16 06/12/16 11:43 11:59 14:08 WBC 10.7 RBC 3.86 Hgb 10.8 L Hct 33.2 L MCV 86.1 MCH 27.9 MCHC 32.4 L RDW 15.2 H Plt Count 156 MPV 8.6 Neut % (Auto) 81.0 H Lymph % (Auto) 3.3 L [place] % (Auto) 15.6 H Eos % (Auto) 0.0 Baso % (Auto) 0.1 Neut # 8.7 H Lymph # 0.4 L [place] # 1.7 H Eos # 0.0 Baso # 0.0 Neutrophils % (Manual) 71 Band Neutrophils % 16 H* Lymphocytes % (Manual) 5 L Reactive Lymphs % Monocytes % (Manual) 8 Toxic Granulation Platelet Estimate Normal Hypochromasia (manual) Slight Poikilocytosis (manual Slight Anisocytosis (manual) Slight Microcytosis (manual) Slight Macrocytosis (manual) Slight [place] Cells Slight APTT 136 H* D pO2 VBG pH VBG pCO2 VBG HCO3 VBG Total CO2 VBG O2 Sat (Calc) VBG Base Excess VBG Potassium Glucose Lactate Sodium 132 Potassium 3.9 Chloride 98 Carbon Dioxide 21 L Anion Gap 17 BUN 28 H Creatinine 1.8 H Est GFR ( Amer) 34 Est GFR (Non-Af Amer) 28 POC Glucose (mg/dL) 377 H 383 H Random Glucose 486 H* Calcium 7.4 L Total Bilirubin 0.4 AST 23 ALT 53 H Alkaline Phosphatase 122 Total Protein 6.4 Albumin 2.8 L Globulin 3.6 Albumin/Globulin Ratio 0.8 L Venous Blood Potassium Urine Color Urine Clarity Urine pH Ur Specific Addison Urine Protein Urine Glucose (UA) Urine Ketones Urine Blood Urine Nitrate Urine Bilirubin Urine Urobilinogen Ur Leukocyte Esterase Urine WBC (Auto) Urine RBC (Auto) Ur Squamous Epith Cells Urine Bacteria 06/12/16 06/12/16 06/12/16 16:49 21:28 21:55 WBC RBC Hgb Hct MCV MCH MCHC RDW Plt Count MPV Neut % (Auto) Lymph % (Auto) [place] % (Auto) Eos % (Auto) Baso % (Auto) Neut # Lymph # [place] # Eos # Baso # Neutrophils % (Manual) Band Neutrophils % Lymphocytes % (Manual) Reactive Lymphs % Monocytes % (Manual) Toxic Granulation Platelet Estimate Hypochromasia (manual) Poikilocytosis (manual Anisocytosis (manual) Microcytosis (manual) Macrocytosis (manual) [place]ilsa Cells APTT pO2 38 VBG pH 7.31 L VBG pCO2 32 L VBG HCO3 17.1 VBG Total CO2 17.1 L VBG O2 Sat (Calc) 77.4 H VBG Base Excess -9.0 L VBG Potassium 2.6 L Glucose 260 H Lactate 1.2 Sodium 144.0 Potassium Chloride 118.0 H Carbon Dioxide Anion Gap BUN Creatinine Est GFR ( Amer) Est GFR (Non-Af Amer) POC Glucose (mg/dL) 343 H 332 H Random Glucose Calcium Total Bilirubin AST ALT Alkaline Phosphatase Total Protein Albumin Globulin Albumin/Globulin Ratio Venous Blood Potassium 2.6 L Urine Color Yellow Urine Clarity Hazy Urine pH 6.0 Ur Specific Addison 1.017 Urine Protein 2+ H Urine Glucose (UA) 3+ H Urine Ketones Negative Urine Blood 1+ H Urine Nitrate Negative Urine Bilirubin Negative Urine Urobilinogen Normal Ur Leukocyte Esterase Neg Urine WBC (Auto) 1 Urine RBC (Auto) 5 H Ur Squamous Epith Cells 3 Urine Bacteria Rare 06/12/16 06/13/16 06/13/16 22:25 05:19 06:06 WBC 13.1 H RBC 3.55 L Hgb 9.9 L Hct 30.9 L MCV 86.9 MCH 27.8 MCHC 32.0 L RDW 15.3 H Plt Count 140 MPV 8.5 Neut % (Auto) 83.0 H Lymph % (Auto) 3.7 L [place] % (Auto) 13.0 H Eos % (Auto) 0.0 Baso % (Auto) 0.3 Neut # 10.9 H Lymph # 0.5 L [place] # 1.7 H Eos # 0.0 Baso # 0.0 Neutrophils % (Manual) 75 Band Neutrophils % 4 H Lymphocytes % (Manual) 5 L Reactive Lymphs % 2 H Monocytes % (Manual) 14 H Toxic Granulation Present Platelet Estimate Normal Hypochromasia (manual) Poikilocytosis (manual Anisocytosis (manual) Slight Microcytosis (manual) Macrocytosis (manual) Stewart Cells APTT 78 H D 124 H* D pO2 VBG pH VBG pCO2 VBG HCO3 VBG Total CO2 VBG O2 Sat (Calc) VBG Base Excess VBG Potassium Glucose Lactate Sodium 129 L Potassium 4.8 Chloride 98 Carbon Dioxide 19 L Anion Gap 17 BUN 31 H Creatinine 1.7 H Est GFR ( Amer) 36 Est GFR (Non-Af Amer) 30 POC Glucose (mg/dL) 459 H* Random Glucose 507 H* Calcium 7.1 L Total Bilirubin 0.1 L AST 32 ALT 48 Alkaline Phosphatase 111 Total Protein 5.7 L Albumin 2.6 L Globulin 3.1 Albumin/Globulin Ratio 0.9 L Venous Blood Potassium Urine Color Urine Clarity Urine pH Ur Specific [place]ison Urine Protein Urine Glucose (UA) Urine Ketones Urine Blood Urine Nitrate Urine Bilirubin Urine Urobilinogen Ur Leukocyte Esterase Urine WBC (Auto) Urine RBC (Auto) Ur Squamous Epith Cells Urine Bacteria 06/13/16 06:59 WBC RBC Hgb Hct MCV MCH MCHC RDW Plt Count MPV Neut % (Auto) Lymph % (Auto) [place] % (Auto) Eos % (Auto) Baso % (Auto) Neut # Lymph # [place] # Eos # Baso # Neutrophils % (Manual) Band Neutrophils % Lymphocytes % (Manual) Reactive Lymphs % Monocytes % (Manual) Toxic Granulation Platelet Estimate Hypochromasia (manual) Poikilocytosis (manual Anisocytosis (manual) Microcytosis (manual) Macrocytosis (manual) Stewart Cells APTT pO2 VBG pH VBG pCO2 VBG HCO3 VBG Total CO2 VBG O2 Sat (Calc) VBG Base Excess VBG Potassium Glucose Lactate Sodium Potassium Chloride Carbon Dioxide Anion Gap BUN Creatinine Est GFR ( Amer) Est GFR (Non-Af Amer) POC Glucose (mg/dL) 440 H* Random Glucose Calcium Total Bilirubin AST ALT Alkaline Phosphatase Total Protein Albumin Globulin Albumin/Globulin Ratio Venous Blood Potassium Urine Color Urine Clarity Urine pH Ur Specific [place]ison Urine Protein Urine Glucose (UA) Urine Ketones Urine Blood Urine Nitrate Urine Bilirubin Urine Urobilinogen Ur Leukocyte Esterase Urine WBC (Auto) Urine RBC (Auto) Ur Squamous Epith Cells Urine Bacteria - Imaging and Cardiology CT scan - chest Status: Report reviewed by me
--- NOTE | 2016-06-13 11:36 | CON ---
DATE: 06/13/2016 REQUESTING PHYSICIAN: Dr. Mark. HISTORY OF PRESENT ILLNESS: This patient is a 70-year-old female. She suffers from lung cancer, had a lobectomy in the past. She complains of severe shortness of breath that began yesterday and also she was tachycardic when she came. She states she is also having cough which is bothering her. She is not bringing any phlegm. Denies any chest pain, did come in with shortness of breath. Denies any headache, dizziness or fever, nausea, vomiting, diarrhea, or urinary complaints. She is here with s hortness of breath and I see she is on heparin at this time. She presented to the ER with temperatur e of 99.4, pulse of 122 on 06/11 and she just basically has cough. Denies any phlegm. Denies any fev er. No chest pain; was tachycardic and has history of pulmonary embolism. PAST MEDICAL HISTORY: Anemia, arthritis, asthma, cardiac arrhythmia, COPD, lung malignancy, diabetes , hypertension, high cholesterol, kidney stones, had a cystoscopy and a stent in 2009 and chronic kid ani disease. PAST SURGICAL HISTORY: Significant for coronary artery stent in 2004, also had lung lobectomy done i n 01/31/14. She a closed needle biopsy of the lungs in 11/2013. FAMILY HISTORY: Noncontributory. SOCIAL HISTORY: She is a former smoker. No history of alcohol. No substance abuse. IMMUNIZATION HISTORY: Not known at this time. REVIEW OF SYSTEMS: She denies any dizziness. She has not been bedridden and denies any fever, denie s any syncope. Does complain of shortness of breath and cough, has no phlegm. No nausea, no vomitin g, no diarrhea GI schumacher. Neurological: No headache, no dizziness, no urinary symptoms reported of ur gency, frequency. Denies any chest pain and denies any trouble swallowing. Denies any other complai nt. MEDICATIONS: She started to get Tylenol. She is on DuoNeb. She is on Zithromax, Coreg, Lanoxin, gl ipizide, heparin. She is also on Solu-Medrol, Singulair, pantoprazole. She is on Zosyn and she is o n promethazine, dexamethasone and Crestor. She is also getting heparin at this time. PHYSICAL EXAMINATION: VITAL SIGNS: I find her temperature is 97.5, pulse of 101, blood pressure 114/68, respirations are 2 0, saturations 97%. GENERAL: She is awake, alert, able to give some history, but she says she does not remember when she saw Dr. Samuels either last week or 2 weeks ago. She does have a Port-A-Cath, also on the right chest wall. HEENT: Head is atraumatic, normocephalic. Pupils are reacting to light. Tongue is moist. Throat: No infection noted. NECK: Supple, no lymphadenopathy present. Trachea is central. LUNGS: Clear. No crackles or rales present at this time. HEART: S1, S2 is tachycardic. She has a curvilinear scar of previous thoracotomy on the right lung. ABDOMEN: Soft, nontender, no guarding, no rigidity present. No rebound. EXTREMITIES: Have no edema, clubbing or cyanosis noted. She is moving all her extremities. LABORATORY DATA: Noted. Last set: White count is 13.1, hemoglobin 9.9, hematocrit 30.9, platelet c ount is 140. Her hemoglobin was 10.8 yesterday and her bands were 16. Bands are 4 today and lymphoc ytes are 5. She also had ABG done which is 7.31, CO2 of 32 and O2 of 77.4 and her chemistry was done today. Chemistry shows sodium is 129, potassium 4.8, chloride is 98, CO2 is 19, anion gap is 17, cr eatinine is 1.7. Her sugar is 440, so it is kind of high and we will ask the nurse what she is getti ng for that. She did have recently in April legionella which was negative. Mycoplasma was negati ve. C. diff was negative. Chest CT was done and chest CT shows worsening in appearance, increasing in size in previous reported lesions. Additionally, comparing the prior study, there is a new significant increase in size in a cavitary lesion at the right lung base abutting the pleura measuring approximately 5 cm in maximal di mension. There is also a new large lesion in the lateral inferior left upper approximately 4.5 in ma ximal dimension. This process appears to extend along the fissure superiorly, also abating the pleur a with interstitial infiltrative process as well as nodularity. So they are seeing a cavitary lesion and chest x-ray shows persistent large mass of the right suprahilar region, additional patchy consol idation in lateral aspect of the left mid lung zone, patchy bibasilar airspace opacities. She also h ad a duplex of the lower extremities at that time and there was no evidence of DVT at that time, just had a complex synovial cyst in the right popliteal fossa. Her VQ scan showed interval appearance of small nonsegmental triple matched defects at the left lung, redemonstration of previously seen tripl e matched defects in the right lung low to intermediate probability ventilation perfusion for pulmona ry embolism. So at this time, she does have multiple lesions. She does have a history of lung cancer and was bein g treated related to that. She also is being treated for pulmonary embolism which is low to intermed iate probability and at this time, we will need to continue that and we will follow and also will nee d pulmonary to evaluate and we will follow with them and see what they make out of the cavitary lesio n. Bryan Mullen MD cc: [id number] TT: 06/13/2016 11:36:27 Confirmation # [id number] Dictation # [id number] tn
[2016-06-13] MEDS: (Novolog) Insulin Aspart, Recombinant 100 u/ml 10 ml vial SC SCH ×2 (12:05→18:04)
[2016-06-13 16:36] LABS: INR 1.1
--- NOTE | 2016-06-13 16:54 | PN ---
DATE: 06/13/2016 SUBJECTIVE: The patient was experiencing shortness breath and was tachycardic yesterday. No reporte d hemoptysis. PHYSICAL EXAMINATION: VITAL SIGNS: Blood pressure 134/81, heart rate 103, temperature 97.4, respirations 20. HEENT: Pale conjunctivae. CHEST: Bilateral rhonchi. HEART: S1, S2 regular. ABDOMEN: Soft. EXTREMITIES: No edema. LABORATORIES: Today's SMA-7: Sodium 129, potassium , chloride 98, CO2 of 19, glucose 507, BUN 31, creatinine 1.7. PTT 74 on therapeutic heparin regimen. Hemoglobin and hematocrit 9.9 and 30.9, white count 15.1, platelet count 140,000. ASSESSMENT: 1. Recurrent lung cancer with cavitating lesion in the right lower lobe. 2. Questionable pulmonary embolism. 3. Chronic renal insufficiency. 4. Uncontrolled diabetes mellitus. RECOMMENDATIONS: The case was discussed at length with Dr. Mark and the decision was made to ini tiate Coumadin therapy. The case was also discussed with the family that upon discharge a low dose C oumadin will be prescribed. In the meantime, intravenous heparin infusion will be administered at a therapeutic regimen until therapeutic INR is achieved. Continue Coreg 3.125 mg twice a day, Crestor 10 mg once a day, digoxin 0.125 mg daily, Solu-Medrol 40 mg intravenously q. 8 hours, Zosyn 2.25 g in travenously q. 8 hours. Parrish Bailey MD cc: [id number] TT: 06/13/2016 16:53:45 Confirmation # [id number] Dictation # [id number] rach
[2016-06-13] MEDS: Digoxin 125 mcg (0.125 mg) Tab PO SCH (18:02)
--- NOTE | 2016-06-13 20:35 | PN ---
DATE: 06/13/2016 The patient today is more alert and awake with less shortness of breath. Positive for cough and ____ _. Her blood pressure is 134/81, pulse is 103, respirations 20 and temperature 97.4. NECK: Supple. No JVD. LUNGS: Have some rales bilaterally. HEART: Tachycardic but tachycardia is less today. ABDOMEN: Soft and nontender. Positive bowel sounds. EXTREMITIES: There is no edema. LABORATORY DATA: The patient had some tests done. Sodium is 129, potassium 4.8, chloride 98, bicarb is 19, BUN 31, creatinine 1.7, glucose was 507, now it is 332. AST 32, ALT 48, alkaline phosp hatase 1.1, albumin 2.6, is 0.9. The patient has PT of 14.3. INR 1.2. PLAN: We are going to continue the nebulizer treatment and also the Solu-Medrol. Antibiotic is orde red and also we are going to have an endocrinology consult with Dr. Joel Diaz because of hyperglycem ia and we are going to order blood work for tomorrow. I have to mention that the patient had a VQ sc an which was positive for PE and we are going to start the patient also on Coumadin today. Isak Mark MD cc: [id number] TT: 06/13/2016 18:55:23 Confirmation # [id number] Dictation # [id number] 06/13/2016 19:34:03
[2016-06-13] MEDS ORDERED: (Novolog) Insulin Aspart, Recombinant 100 u/ml 10 ml vial SC SCH (21:35)
[2016-06-13] MEDS ORDERED: (Lantus) Insulin Glargine, Recombinant SC SCH (22:00)
[2016-06-13] MEDS: Azithromycin 500 MG in Sodium Chloride 0.9% 250 ML IVPB SCH (22:02)
[2016-06-13] MEDS: (Novolin R) Insulin Human Regular 100 units/ml vial SC SCH (22:09)
[2016-06-14] MEDS: Albuterol-Ipratrop 3 mg / 0.5 (3 ml) UD INH SCH ×4 (01:42→20:03)
[2016-06-14] MEDS: MethylPREDNISolone 40 mg Vial IV SCH ×3 (03:16→18:00)
[2016-06-14] MEDS: Piperacill/Tazo 2.25gm in Dex 50 ML IVPB SCH ×3 (05:53→22:01)
[2016-06-14 06:23] LABS: BASO % 0.4 % (0.0-2.0); HEMATOCRIT 33.3 % (34.0-47.0); LYMPH # 0.4 K/uL (1.0-4.3); LYMPH % 2.6 % (20.0-40.0); MEAN CELL VOLUME 86.1 fL (81.0-99.0); MEAN CORPUSCULAR HEMOGLOBIN 27.1 pg (27.0-31.0); MEAN CORPUSCULAR HGB CONC 31.5 g/dL (33.0-37.0); MEAN PLATELET VOLUME 8.7 fL (7.2-11.7); MONO # 1.3 K/uL (0.0-0.8); NRBC % 0.3 % (0.0-2.0); PLATELET COUNT 209 K/uL (130-400); RED CELL DISTRIBUTION WIDTH 15.2 % (11.5-14.5)
[2016-06-14 06:37] LABS: INR 1.1
[2016-06-14 07:42] LABS: POTASSIUM 4.5 mmol/L (3.6-5.2)
[2016-06-14 07:44] LABS: ALB/GLOB RATIO 0.9 (1.0-2.1); BILIRUBIN,TOTAL 0.2 mg/dL (0.2-1.3); TOTAL PROTEIN 5.8 g/dL (6.3-8.3)
[2016-06-14 07:45] LABS: CALCIUM 7.4 mg/dl (8.6-10.4)
[2016-06-14 07:52] LABS: THYROID STIMULATING HORMONE 1.15 mIU/L (0.46-4.68)
[2016-06-14] MEDS: (Novolin R) Insulin Human Regular 100 units/ml vial SC SCH ×7 (07:55→21:58)
[2016-06-14 08:23] LABS: NEUTROPHIL 83 % (50-75); TOTAL CELLS COUNTED 100
[2016-06-14] MEDS: Pantoprazole 40 mg EC Tab PO SCH (09:23)
[2016-06-14] MEDS: Promethazine DM 6.25 mg-15 mg/5 ml Syrup PO SCH ×2 (10:00→17:38)
--- NOTE | 2016-06-14 10:40 | CP.PCM.PN ---
Subjective - Date & Time of Evaluation Date of Evaluation: 06/14/16 Time of Evaluation: 10:37 - Subjective Subjective: PT ALERT, +COUGH, NO CHEST TIGHTNESS., +PALPITATIONS. ROS ; OTHERWISE NEG Objective - Vital Signs/Intake and Output Vital Signs (last 24 hours): Temp Pulse Resp BP Pulse Ox 97.9 F 89 20 170/89 H 99 06/14/16 07:43 06/14/16 07:43 06/14/16 07:43 06/14/16 07:43 06/14/16 07:43 Intake and Output: 06/14/16 06/14/16 06:59 18:59 Intake Total 694.4 74 Output Total 2 Balance 694.4 72 - Medications Medications: Current Medications Acetaminophen (Tylenol 325mg Tab) 650 mg PO Q6 PRN PRN Reason: Fever >100.4 F Last Admin: 06/12/16 21:20 Dose: 650 mg Albuterol/Ipratropium (Duoneb 3 Mg/0.5 Mg (3 Ml) Ud) 3 ml INH RQ6 [facility] Last Admin: 06/14/16 07:56 Dose: 3 ml Carvedilol (Coreg) 3.125 mg PO BID [facility] Last Admin: 06/14/16 09:23 Dose: 3.125 mg Digoxin (Lanoxin) 0.125 mg PO DAILY@1800 [facility] Last Admin: 06/13/16 18:02 Dose: 0.125 mg Azithromycin 500 mg/ Sodium (Chloride) 250 mls @ 250 mls/hr IVPB Q24H [facility] Last Admin: 06/13/16 22:02 Dose: 250 mls/hr Piperacillin Sod/Tazobactam Sod (Zosyn 2.25 Gm Iv Premix) 50 mls @ 100 mls/hr IVPB Q8H [facility] Last Admin: 06/14/16 05:53 Dose: 100 mls/hr Heparin Sodium/Sodium Chloride (Heparin 12947 Units/250ml 1/2 Normal Saline) 250 mls @ 9.253 mls/hr IV .Q24H PRN; Protocol; 12 UNITS/KG/HR PRN Reason: PROTOCOL Insulin Glargine (Lantus) 15 unit SC HS [facility] Last Admin: 06/13/16 22:06 Dose: 15 units Insulin Human Regular (Novolin R) 0 unit SC ACHS [facility] PRN Reason: Protocol Last Admin: 06/14/16 07:55 Dose: 5 unit Insulin Human Regular (Novolin R) 5 unit SC TIDPC [facility] Last Admin: 06/14/16 08:05 Dose: 5 unit Methylprednisolone (Solu-Medrol) 40 mg IV Q8H [facility] Last Admin: 06/14/16 03:16 Dose: 40 mg Montelukast Sodium (Singulair) 10 mg PO HS [facility] Last Admin: 06/13/16 22:05 Dose: 10 mg Pantoprazole Sodium (Protonix Ec Tab) 40 mg PO DAILY [facility] Last Admin: 06/14/16 09:23 Dose: 40 mg Promethazine HCl/Dextromethorphan (Phenergan Dm Syrup) 6.25 ml PO TID [facility] Last Admin: 06/13/16 18:03 Dose: 6.25 ml Rosuvastatin Calcium (Crestor) 10 mg PO QPM [facility] Last Admin: 06/13/16 18:03 Dose: 10 mg - Labs Labs: 06/14/16 06:14 06/14/16 06:14 PT 12.3 SECONDS (9.7-12.2) H 06/14/16 06:14 INR 1.1 06/14/16 06:14 APTT 101 SECONDS (21-34) H* D 06/14/16 06:14 - Constitutional Appears: No Acute Distress, Chronically Ill - Head Exam Head Exam: ATRAUMATIC, NORMOCEPHALIC - Eye Exam Eye Exam: EOMI, Normal appearance - ENT Exam ENT Exam: Mucous Membranes Moist - Neck Exam Neck Exam: Full ROM. absent: Tenderness - Respiratory Exam Respiratory Exam: Decreased Breath Sounds, Prolonged Expiratory Phase. absent: Wheezes - Cardiovascular Exam Cardiovascular Exam: Tachycardia, +S1, +S2 - GI/Abdominal Exam GI & Abdominal Exam: Soft. absent: Tenderness - Rectal Exam Rectal Exam: Deferred - Extremities Exam Extremities Exam: absent: Calf Tenderness, Pedal Edema - Back Exam Back Exam: absent: CVA tenderness (L), CVA tenderness (R) - Neurological Exam Neurological Exam: Alert, Awake, CN II-XII Intact, Oriented x3 - Psychiatric Exam Psychiatric exam: Normal Affect - Skin Skin Exam: absent: Rash Assessment and Plan (1) Lung cancer Status: Acute (2) SVT (supraventricular tachycardia) Status: Acute (3) Tachycardia Status: Acute (4) Uncontrolled diabetes mellitus with diabetic nephropathy Status: Acute (5) CAD (coronary artery disease) Status: Acute (6) CKD (chronic kidney disease) Status: Acute (7) COPD exacerbation Status: Acute (8) Diabetes Status: Acute (9) Hypertension Status: Acute (10) Pulmonary embolism Status: Acute (11) Respiratory failure with hypoxia Status: Acute - Assessment and Plan (Free Text) Assessment: RESP STATUS MORE COMFORTABLE., HR BETTER CONTROLLED., MONITOR O2 SAT. CONT DECREASE STEROIDS, GLUCOSE REMAINS ELEVATED., ADD ADVAIR, CONT NEB BD. CXR REVIEWED., CONT ANTICOAG., MONITOR ON COUMADIN. AFEBRILE ON AB PER ID. PROG POOR. DISCUSSED WITH STAFF.
--- NOTE | 2016-06-14 14:46 | PN ---
DATE: 06/14/2016 The patient is experiencing mild shortness of breath and cough. She denies retrosternal chest pain. No hemoptysis or epistaxis. PHYSICAL EXAMINATION: VITAL SIGNS: Blood pressure 170/89, heart rate 89, temperature 97.9, respirations 20. HEENT: Pale conjunctivae. CHEST: Bilateral rhonchi. HEART: S1, S2 regular. EXTREMITIES: No edema. LABORATORIES: CBC: Today's hemoglobin and hematocrit 10.5 and 33.3, white count 14.0, platelet coun t 109,000. SMA-7: Sodium 132, potassium 4.5, chloride 100, CO2 of 20, glucose 497, BUN 37, creatini ne 2.0. PTT 63. INR is 1.1. ASSESSMENT: 1. Low to medium to pulmonary embolism. 2. 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 3. Chronic obstructive lung disease. 4. Uncontrolled diabetes mellitus. 5. Sinus tachycardia. RECOMMENDATIONS: Continue current IV Zithromax and IV Zosyn. Continue Solu-Medrol 30 mg intravenous hours. Continue therapeutic intravenous heparin protocol for PE. Continue digoxin 0.125 mg once a day, Crestor 10 mg once a day, Coreg 3.125 mg twice a day, Coumadin 5 mg to be administered today. Parrish Bailey MD cc: [id number] TT: 06/14/2016 14:45:54 Confirmation # [id number] Dictation # [id number]
--- NOTE | 2016-06-14 15:34 | PN ---
DATE: 06/14/2016 SUBJECTIVE: Today, the patient is alert, awake, oriented, with much less shortness of breath with de creasing cough. Denies chest pain. The patient had a bowel movement. OBJECTIVE: VITAL SIGNS: The patient has a blood pressure of 170/89, pulse is 89, respirations 20, temperature 9 7.9, O2 saturation 99%. NECK: Supple. No JVD. LUNGS: There is some expiratory wheezing. HEART: Regular rate and rhythm. Positive murmur. ABDOMEN: Soft, nontender. EXTREMITIES: There is no edema, no tenderness. LABORATORY DATA: Showed sodium of 132, potassium 4.5, chloride 100, BUN 37, creatinine 2, glucose i s 477 and also 341. Albumin 2.7, globulin 3.1 and TSH is 1.15. Coag: PT is 12.3, INR 1.1. WBC is 14, hemoglobin 10.5, hematocrit 33.3 and platelets 209. PLAN: We are going to decrease the Solu-Medrol, continue the nebulizer. Continue the antibiot ic and we will refer the patient for physical therapy in the morning. Isak Mark MD cc: [id number] TT: 06/14/2016 15:33:34 Confirmation # [id number] Dictation # [id number]
--- NOTE | 2016-06-14 17:36 | VASCLAB ---
PROCEDURE: Lower Extremity Venous Duplex Exam. HISTORY: r/o DVT PRIORS: None. TECHNIQUE: Bilateral common femoral, femoral, popliteal and posterior tibial, peroneal and great saphenous veins were evaluated. Flow was assessed with color Doppler, compressibility, assessment of phasic flow and augmentation response. Report prepared by Rolando Boyce, KENRICK, RVT FINDINGS: RIGHT: 1. Common Femoral Vein: 1.1. Compressibility - Fully compressible: Thrombus - None : Flow - Phasic: Augmentation -Normal: Reflux - None. 2. Femoral Vein: 2.1. Compressibility - Fully compressible: Thrombus - None : Flow - Phasic: Augmentation -Normal: Reflux - None. 3. Popliteal Vein: 3.1. Compressibility - Fully compressible: Thrombus - None : Flow - Phasic: Augmentation -Normal: Reflux - None. 4. Posterior Tibial Vein: 4.1. Compressibility - Fully compressible: Thrombus - None: Flow - Phasic: Augmentation -Normal: Reflux - None. 5. Peroneal Vein: 5.1. Compressibility - Fully compressible: Thrombus - None: Flow - Phasic: Augmentation -Normal: Reflux - None. 6. Great Saphenous Vein: 6.1. Compressibility - Fully compressible: Thrombus - None: Flow - Phasic: Augmentation - Normal: Reflux - None. LEFT: 1. Common Femoral Vein: 1.1. Compressibility - Fully compressible: Thrombus - None: Flow - Phasic: Augmentation -Normal: Reflux - None. 2. Femoral Vein: 2.1. Compressibility - Fully compressible: Thrombus - None: Flow - Phasic: Augmentation -Normal: Reflux - None. 3. Popliteal Vein: 3.1. Compressibility - Fully compressible: Thrombus - None : Flow - Phasic: Augmentation -Normal: Reflux - None. 4. Posterior Tibial Vein: 4.1. Compressibility - Fully compressible: Thrombus - None: Flow - Phasic: Augmentation -Normal: Reflux - None. 5. Peroneal Vein: 5.1. Compressibility - Fully compressible: Thrombus - None: Flow - Phasic: Augmentation -Normal: Reflux - None. 6. Great Saphenous Vein: 6.1. Compressibility - Fully compressible: Thrombus - None: Flow - Phasic: Augmentation - Normal: Reflux - None. OTHER FINDINGS: Right: None significant. Left: None significant. IMPRESSION: Right: No evidence of deep or superficial vein thrombosis of the right lower extremity. Normal valve function noted of the right side. Left: No evidence of deep or superficial vein thrombosis of the left lower extremity. Normal valve function noted of the left side.
[2016-06-14] MEDS: Digoxin 125 mcg (0.125 mg) Tab PO SCH (17:46)
--- NOTE | 2016-06-14 19:26 | CP.PCM.CON ---
History of Present Illness - History of Present Illness History of Present Illness: uncontrolled DM Past Patient History - Past Medical History & Family History Past Medical History?: Yes Past Family History: Reviewed and not pertinent - Past Social History Smoking Status: Former Smoker Alcohol: None Drugs: Denies - CARDIAC Hx Cardia Arrhythmia: Yes Hx Hypercholesterolemia: Yes Hx Hypertension: Yes Hx Pacemaker: No - PULMONARY Hx Asthma: Yes Hx Chronic Obstructive Pulmonary Disease (COPD): Yes Hx Pulmonary Embolism: Yes Hx Sleep Apnea: No - NEUROLOGICAL Hx Neurological Disorder: No Hx Paralysis: No - HEENT Hx HEENT Problems: Yes Hx Epistaxis: Yes Other/Comment: eye glasses for reading - RENAL Hx Chronic Kidney Disease: Yes Hx Kidney Stones: Yes (CYSTO/STENT 2009) - ENDOCRINE/METABOLIC Hx Endocrine Disorders: Yes Hx Diabetes Mellitus Type 2: Yes - HEMATOLOGICAL/ONCOLOGICAL Hx Anemia: Yes - INTEGUMENTARY Hx Dermatological Problems: No - MUSCULOSKELETAL/RHEUMATOLOGICAL Hx Arthritis: Yes Hx Falls: No Hx Gout: Yes - GASTROINTESTINAL Hx Gastrointestinal Disorders: Yes Hx Constipation: Yes - GENITOURINARY/GYNECOLOGICAL Hx Genitourinary Disorders: Yes - PSYCHIATRIC Hx Substance Use: No - SURGICAL HISTORY Hx Coronary Stent: Yes (2004) Hx Pulmonary Surgery: Yes - ANESTHESIA Hx Anesthesia: Yes Hx Anesthesia Reactions: No Hx Malignant Hyperthermia: No Meds Allergies/Adverse Reactions: Allergies Allergy/AdvReac Type Severity Reaction Status Date / Time No Known Allergies Allergy Verified 04/18/16 22:54 - Medications Medications: Current Medications Acetaminophen (Tylenol 325mg Tab) 650 mg PO Q6 PRN PRN Reason: Fever >100.4 F Last Admin: 06/12/16 21:20 Dose: 650 mg Albuterol/Ipratropium (Duoneb 3 Mg/0.5 Mg (3 Ml) Ud) 3 ml INH RQ6 [facility] Last Admin: 06/14/16 13:39 Dose: 3 ml Carvedilol (Coreg) 3.125 mg PO BID [facility] Last Admin: 06/14/16 17:45 Dose: 3.125 mg Digoxin (Lanoxin) 0.125 mg PO DAILY@1800 [facility] Last Admin: 06/14/16 17:46 Dose: 0.125 mg Azithromycin 500 mg/ Sodium (Chloride) 250 mls @ 250 mls/hr IVPB Q24H [facility] Last Admin: 06/13/16 22:02 Dose: 250 mls/hr Piperacillin Sod/Tazobactam Sod (Zosyn 2.25 Gm Iv Premix) 50 mls @ 100 mls/hr IVPB Q8H [facility] Last Admin: 06/14/16 14:10 Dose: 100 mls/hr Heparin Sodium/Sodium Chloride (Heparin 48746 Units/250ml 1/2 Normal Saline) 250 mls @ 9.253 mls/hr IV .Q24H PRN; Protocol; 12 UNITS/KG/HR PRN Reason: PROTOCOL Insulin Glargine (Lantus) 20 unit SC HS [facility] Insulin Human Regular (Novolin R) 0 unit SC ACHS [facility] PRN Reason: Protocol Last Admin: 06/14/16 17:39 Dose: 5 unit Insulin Human Regular (Novolin R) 8 unit SC TIDPC [facility] Methylprednisolone (Solu-Medrol) 30 mg IV Q8H [facility] Last Admin: 06/14/16 11:00 Dose: 30 mg Montelukast Sodium (Singulair) 10 mg PO HS [facility] Last Admin: 06/13/16 22:05 Dose: 10 mg Pantoprazole Sodium (Protonix Ec Tab) 40 mg PO DAILY [facility] Last Admin: 06/14/16 09:23 Dose: 40 mg Promethazine HCl/Dextromethorphan (Phenergan Dm Syrup) 6.25 ml PO TID [facility] Last Admin: 06/14/16 17:38 Dose: 6.25 ml Rosuvastatin Calcium (Crestor) 10 mg PO QPM [facility] Last Admin: 06/14/16 17:37 Dose: 10 mg Fluticasone/Salmeterol (Advair Diskus 250/50) 1 puff INH RQ12 [facility] Results - Vital Signs Recent Vital Signs: Last Vital Signs Temp 97.4 F L 06/14/16 16:03 Pulse 89 06/14/16 16:03 Resp 20 06/14/16 16:03 BP 151/91 H 06/14/16 16:03 Pulse Ox 100 06/14/16 16:03 - Labs Result Diagrams: 06/14/16 06:14 06/14/16 06:14 Labs: Laboratory Results - last 24 hr 06/13/16 06/14/16 06/14/16 21:16 06:14 06:31 WBC 14.0 H RBC 3.86 Hgb 10.5 L Hct 33.3 L MCV 86.1 MCH 27.1 MCHC 31.5 L RDW 15.2 H Plt Count 209 MPV 8.7 Neut % (Auto) 88.0 H Lymph % (Auto) 2.6 L [place] % (Auto) 9.0 Eos % (Auto) 0.0 Baso % (Auto) 0.4 Neut # 12.3 H Lymph # 0.4 L [place] # 1.3 H Eos # 0.0 Baso # 0.0 Neutrophils % (Manual) 83 H Band Neutrophils % 2 Lymphocytes % (Manual) 2 L Monocytes % (Manual) 13 H Platelet Estimate Normal Hypochromasia (manual) Slight Poikilocytosis (manual Slight Anisocytosis (manual) Slight Tear Drop Cells Slight Ovalocytes Slight PT 12.3 H INR 1.1 APTT 101 H* D Sodium 132 Potassium 4.5 Chloride 100 Carbon Dioxide 20 L Anion Gap 17 BUN 37 H Creatinine 2.0 H Est GFR ( Amer) 30 Est GFR (Non-Af Amer) 25 POC Glucose (mg/dL) 341 H 377 H Random Glucose 479 H* Calcium 7.4 L Total Bilirubin 0.2 AST 22 ALT 44 Alkaline Phosphatase 117 Total Protein 5.8 L Albumin 2.7 L Globulin 3.1 Albumin/Globulin Ratio 0.9 L TSH 3rd Generation 1.15 06/14/16 06/14/16 06/14/16 11:17 13:48 17:05 WBC RBC Hgb Hct MCV MCH MCHC RDW Plt Count MPV Neut % (Auto) Lymph % (Auto) [place] % (Auto) Eos % (Auto) Baso % (Auto) Neut # Lymph # [place] # Eos # Baso # Neutrophils % (Manual) Band Neutrophils % Lymphocytes % (Manual) Monocytes % (Manual) Platelet Estimate Hypochromasia (manual) Poikilocytosis (manual Anisocytosis (manual) Tear Drop Cells Ovalocytes PT INR APTT 63 H D Sodium Potassium Chloride Carbon Dioxide Anion Gap BUN Creatinine Est GFR ( Amer) Est GFR (Non-Af Amer) POC Glucose (mg/dL) 377 H 357 H Random Glucose Calcium Total Bilirubin AST ALT Alkaline Phosphatase Total Protein Albumin Globulin Albumin/Globulin Ratio TSH 3rd Generation Assessment & Plan (1) Uncontrolled diabetes mellitus with diabetic nephropathy Assessment and Plan: Endocrine consult reason for consult: uncontrolled diabetes pt. is 70 y/o admitted for sob & tachycardia , with pulmonary embolism & COPD excerbation , glucose > 600 on admission as per pt. has DM x 17 years (-) neuropathy , (-) retinopathy , (+) nephropathy outpatient diabetes management regimen : glipizide ? qd inpatient diabetes management regimen : novolog medium dose coverage ,as per endocrine yesterday, Novolin R low dose coverage , lantus 15 units @ hs & Novolin R 5 units tid with meals since glucose 300-500 , also hba1c & TSH were requested blood glucose log :300's on solumedrol 40 mg q 8h NO hypoglycemia Allergy NKDA Past medical history :HTN , HYPERLIPIDEMIA , LUNG cancer , COPD Past surgical history : right lung lopectomy & Left eye catract Psychiatry history : denies Social history : ex-smoking , ex-ETOH use , denies illicit drug use Family history : irrelevant ROS: Constitutional: denies fever ,tiredness/weakness .HEENT: denies earache, change in voice .Respiratory: denies cough, sob . CVS :no chest pain, no palpitations . Abdomen : no abdominal pain, no nausea /vomiting , no change bowel movement . 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 Extremities : no edema , no tremors . Skin: no itching, no rash Physical exam Well developed AAO x3 , ,NAD VSS HEENT: norm cephalic, atraumatic , no lid lag , no exophthalmos NECK: supple, no palpable lymphadenopathy THYROID: no palpable thyromegaly , not tender CHEST: fair air entry, bilateral, CVS: S1,S2 ABDOMEN: bowel sound present, benign, obese, no wide purple striae , no bruises EXTREMITIES: no edema, clubbing or cyanosis, no palpable hand tremors Skin : acanthosis nigricans lab: tsh 1.15 a1c is pending , cr 2 , NT-probntp 6700, d-dimer 3558, urinr 3+ glucose Assessment uncontrolled IDDM steroids induced hyperglycemia lung cancer/COPD pulmonary embolism obesity plan - increase lantus 20 units @ 9pm daily - increse novolin R 8 units tid with meals if eat > 60% of the meal -continue Novolin R low dose coverage -f/u a1c Status: Acute (2) Steroid-induced hyperglycemia Status: Acute (3) Lung cancer Status: Acute (4) Pulmonary embolism Status: Acute
[2016-06-14] MEDS: Fluticasone-Salmeterol 250-50mcg Diskus INH SCH (20:03)
[2016-06-14] MEDS: (Lantus) Insulin Glargine, Recombinant SC SCH (22:00)
[2016-06-14] MEDS: Azithromycin 500 MG in Sodium Chloride 0.9% 250 ML IVPB SCH (22:01)
[2016-06-15] MEDS: Albuterol-Ipratrop 3 mg / 0.5 (3 ml) UD INH SCH ×4 (02:00→19:37)
[2016-06-15] MEDS ORDERED: Alum-Mag Hydrox-Simethicone Susp (30 mL) PO STA (02:29)
[2016-06-15] MEDS: MethylPREDNISolone 40 mg Vial IV SCH ×3 (02:44→18:04)
[2016-06-15] MEDS: Piperacill/Tazo 2.25gm in Dex 50 ML IVPB SCH ×2 (06:01→14:45)
[2016-06-15 07:04] LABS: INR 1.1
[2016-06-15] MEDS: (Novolin R) Insulin Human Regular 100 units/ml vial SC SCH ×8 (07:35→21:43)
[2016-06-15] MEDS: Fluticasone-Salmeterol 250-50mcg Diskus INH SCH ×2 (08:50→19:36)
--- NOTE | 2016-06-15 09:14 | CP.PCM.PN ---
Subjective - Date & Time of Evaluation Date of Evaluation: 06/15/16 Time of Evaluation: 09:11 - Subjective Subjective: PT ALERT, NO SOB AT REST, HAS NOT BEEN OUT OF BED., LESS COUGH. ROS; OTHERWISE NEG. Objective - Vital Signs/Intake and Output Vital Signs (last 24 hours): Temp Pulse Resp BP Pulse Ox 97.5 F L 86 20 173/79 H 99 06/15/16 08:35 06/15/16 08:35 06/15/16 08:35 06/15/16 08:35 06/15/16 08:35 Intake and Output: 06/15/16 06/15/16 06:59 18:59 Intake Total 854 Output Total 550 Balance 304 - Medications Medications: Current Medications Acetaminophen (Tylenol 325mg Tab) 650 mg PO Q6 PRN PRN Reason: Fever >100.4 F Last Admin: 06/12/16 21:20 Dose: 650 mg Albuterol/Ipratropium (Duoneb 3 Mg/0.5 Mg (3 Ml) Ud) 3 ml INH RQ6 [facility] Last Admin: 06/15/16 08:51 Dose: 3 ml Carvedilol (Coreg) 3.125 mg PO BID [facility] Last Admin: 06/14/16 17:45 Dose: 3.125 mg Digoxin (Lanoxin) 0.125 mg PO DAILY@1800 [facility] Last Admin: 06/14/16 17:46 Dose: 0.125 mg Azithromycin 500 mg/ Sodium (Chloride) 250 mls @ 250 mls/hr IVPB Q24H [facility] Last Admin: 06/14/16 22:01 Dose: 250 mls/hr Piperacillin Sod/Tazobactam Sod (Zosyn 2.25 Gm Iv Premix) 50 mls @ 100 mls/hr IVPB Q8H [facility] Last Admin: 06/15/16 06:01 Dose: 100 mls/hr Heparin Sodium/Sodium Chloride (Heparin 55550 Units/250ml 1/2 Normal Saline) 250 mls @ 9.253 mls/hr IV .Q24H PRN; Protocol; 12 UNITS/KG/HR PRN Reason: PROTOCOL Insulin Glargine (Lantus) 20 unit SC HS [facility] Last Admin: 06/14/16 22:00 Dose: 20 units Insulin Human Regular (Novolin R) 0 unit SC ACHS [facility] PRN Reason: Protocol Last Admin: 06/15/16 07:35 Dose: 5 unit Insulin Human Regular (Novolin R) 8 unit SC TIDPC [facility] Last Admin: 06/15/16 08:17 Dose: 8 unit Methylprednisolone (Solu-Medrol) 30 mg IV Q8H [facility] Last Admin: 06/15/16 02:44 Dose: 30 mg Montelukast Sodium (Singulair) 10 mg PO HS [facility] Last Admin: 06/14/16 22:00 Dose: 10 mg Pantoprazole Sodium (Protonix Ec Tab) 40 mg PO DAILY [facility] Last Admin: 06/14/16 09:23 Dose: 40 mg Promethazine HCl/Dextromethorphan (Phenergan Dm Syrup) 6.25 ml PO TID [facility] Last Admin: 06/14/16 17:38 Dose: 6.25 ml Rosuvastatin Calcium (Crestor) 10 mg PO QPM [facility] Last Admin: 06/14/16 17:37 Dose: 10 mg Fluticasone/Salmeterol (Advair Diskus 250/50) 1 puff INH RQ12 [facility] Last Admin: 06/15/16 08:50 Dose: Not Given - Labs Labs: 06/14/16 06:14 06/14/16 06:14 PT 12.6 SECONDS (9.7-12.2) H 06/15/16 06:46 INR 1.1 06/15/16 06:46 APTT 63 SECONDS (21-34) H D 06/14/16 13:48 - Constitutional Appears: No Acute Distress, Chronically Ill - Head Exam Head Exam: ATRAUMATIC, NORMOCEPHALIC - Eye Exam Eye Exam: EOMI, Normal appearance - ENT Exam ENT Exam: Mucous Membranes Moist - Neck Exam Neck Exam: absent: Tenderness - Respiratory Exam Respiratory Exam: Decreased Breath Sounds, Rhonchi. absent: Accessory Muscle Use - Cardiovascular Exam Cardiovascular Exam: Irregular Rhythm, +S1, +S2 - GI/Abdominal Exam GI & Abdominal Exam: Soft. absent: Tenderness - Rectal Exam Rectal Exam: Deferred - Extremities Exam Extremities Exam: absent: Calf Tenderness, Pedal Edema - Back Exam Back Exam: absent: CVA tenderness (L), CVA tenderness (R) - Neurological Exam Neurological Exam: Alert, Awake, CN II-XII Intact, Oriented x3 - Psychiatric Exam Psychiatric exam: Normal Affect - Skin Skin Exam: absent: Rash Assessment and Plan (1) Lung cancer Status: Acute (2) SVT (supraventricular tachycardia) Status: Acute (3) Tachycardia Status: Acute (4) Uncontrolled diabetes mellitus with diabetic nephropathy Status: Acute (5) CAD (coronary artery disease) Status: Acute (6) CKD (chronic kidney disease) Status: Acute (7) COPD exacerbation Status: Acute (8) Diabetes Status: Acute (9) Hypertension Status: Acute (10) Pulmonary embolism Status: Acute (11) Respiratory failure with hypoxia Status: Acute - Assessment and Plan (Free Text) Assessment: RESP STATUS NO SIG CHANGE., ON STEROID TAPER, CONT NEB BD, ADVAIR., CONT ANTICOAG, MONITOR ON COUMADIN., ADEQ OXYGENATION., MONITOR O2 SAT., CXR REVIEWED., AFEBRILE ON AB., +VRE URINE NOTED. DISCUSSED WITH STAFF.
[2016-06-15] MEDS ORDERED: Linezolid 600 mg in D5W 300 ml 300 ML IVPB SCH (10:00)
[2016-06-15] MEDS: Pantoprazole 40 mg EC Tab PO SCH (10:33)
[2016-06-15] MEDS: Promethazine DM 6.25 mg-15 mg/5 ml Syrup PO SCH ×3 (10:33→18:22)
[2016-06-15 13:27] LABS: BASO % 0.2 % (0.0-2.0); HEMATOCRIT 33.2 % (34.0-47.0); LYMPH # 0.6 K/uL (1.0-4.3); LYMPH % 3.6 % (20.0-40.0); MEAN CELL VOLUME 86.9 fL (81.0-99.0); MEAN CORPUSCULAR HEMOGLOBIN 27.1 pg (27.0-31.0); MEAN CORPUSCULAR HGB CONC 31.2 g/dL (33.0-37.0); MEAN PLATELET VOLUME 8.7 fL (7.2-11.7); MONO # 1.3 K/uL (0.0-0.8); MONO % 7.8 % (0.0-10.0); NRBC % 0.5 % (0.0-2.0); PLATELET COUNT 252 K/uL (130-400); RED CELL DISTRIBUTION WIDTH 15.2 % (11.5-14.5); WHITE BLOOD COUNT 16.6 K/uL (4.8-10.8)
[2016-06-15 13:36] LABS: POTASSIUM 4.8 mmol/L (3.6-5.2)
[2016-06-15 13:38] LABS: ALB/GLOB RATIO 0.7 (1.0-2.1); BILIRUBIN,TOTAL 0.2 mg/dL (0.2-1.3)
[2016-06-15 13:39] LABS: CALCIUM 7.7 mg/dl (8.6-10.4)
[2016-06-15 13:45] LABS: NEUTROPHIL 89 % (50-75); TOTAL CELLS COUNTED 100
[2016-06-15] MEDS: Heparin25000 units/250ml 1/2NS 250 ML IV PRN ×2 (15:30→19:00)
--- NOTE | 2016-06-15 15:46 | CP.PCM.PN ---
Subjective - Date & Time of Evaluation Date of Evaluation: 06/15/16 Time of Evaluation: 03:00 - Subjective Subjective: dictated Objective - Vital Signs/Intake and Output Vital Signs (last 24 hours): Temp Pulse Resp BP Pulse Ox 97.5 F L 86 20 173/79 H 99 06/15/16 08:35 06/15/16 08:35 06/15/16 08:35 06/15/16 08:35 06/15/16 08:35 Intake and Output: 06/15/16 06/15/16 06:59 18:59 Intake Total 854 Output Total 550 Balance 304 - Medications Medications: Current Medications Acetaminophen (Tylenol 325mg Tab) 650 mg PO Q6 PRN PRN Reason: Fever >100.4 F Last Admin: 06/12/16 21:20 Dose: 650 mg Albuterol/Ipratropium (Duoneb 3 Mg/0.5 Mg (3 Ml) Ud) 3 ml INH RQ6 [facility] Last Admin: 06/15/16 14:30 Dose: 3 ml Carvedilol (Coreg) 3.125 mg PO BID [facility] Last Admin: 06/15/16 10:33 Dose: 3.125 mg Digoxin (Lanoxin) 0.125 mg PO DAILY@1800 [facility] Last Admin: 06/14/16 17:46 Dose: 0.125 mg Piperacillin Sod/Tazobactam Sod (Zosyn 2.25 Gm Iv Premix) 50 mls @ 100 mls/hr IVPB Q8H [facility] Last Admin: 06/15/16 14:45 Dose: 100 mls/hr Heparin Sodium/Sodium Chloride (Heparin 18879 Units/250ml 1/2 Normal Saline) 250 mls @ 6.94 mls/hr IV .Q24H PRN; Protocol; 9 UNITS/KG/HR PRN Reason: PROTOCOL Tigecycline 100 mg/ Sodium (Chloride) 100 mls @ 100 mls/hr IV ONCE ONE Stop: 06/15/16 16:40 Tigecycline 50 mg/ Dextrose 100 mls @ 100 mls/hr IV Q12H [facility] Insulin Glargine (Lantus) 20 unit SC HS [facility] Last Admin: 06/14/16 22:00 Dose: 20 units Insulin Human Regular (Novolin R) 0 unit SC ACHS [facility] PRN Reason: Protocol Last Admin: 06/15/16 12:00 Dose: 4 unit Insulin Human Regular (Novolin R) 8 unit SC TIDPC [facility] Last Admin: 06/15/16 12:42 Dose: 8 unit Methylprednisolone (Solu-Medrol) 30 mg IV Q8H [facility] Last Admin: 06/15/16 10:36 Dose: 30 mg Montelukast Sodium (Singulair) 10 mg PO HS [facility] Last Admin: 06/14/16 22:00 Dose: 10 mg Pantoprazole Sodium (Protonix Ec Tab) 40 mg PO DAILY [facility] Last Admin: 06/15/16 10:33 Dose: 40 mg Promethazine HCl/Dextromethorphan (Phenergan Dm Syrup) 5 ml PO TID [facility] Last Admin: 06/15/16 14:17 Dose: 5 ml Rosuvastatin Calcium (Crestor) 10 mg PO QPM [facility] Last Admin: 06/14/16 17:37 Dose: 10 mg Fluticasone/Salmeterol (Advair Diskus 250/50) 1 puff INH RQ12 [facility] Last Admin: 06/15/16 08:50 Dose: Not Given - Labs Labs: 06/15/16 13:21 06/15/16 13:21 PT 12.6 SECONDS (9.7-12.2) H 06/15/16 06:46 INR 1.1 06/15/16 06:46 APTT 106 SECONDS (21-34) H* D 06/15/16 13:30
--- NOTE | 2016-06-15 17:03 | RAD ---
HISTORY: SOB COMPARISON: Chest x-ray performed 06/11/16, CT chest without IV contrast performed 06/11/16 TECHNIQUE: Chest, one view. FINDINGS: Right-sided central venous catheter extends to the right atrium. LUNGS: Persistent right suprahilar opacity compatible with mass. Right apical pleural thickening. No significant pleural effusion or definite pneumothorax. Please note that chest x-ray has limited sensitivity for the detection of pulmonary masses. CARDIOVASCULAR: Heart size appears within normal limits. OSSEOUS STRUCTURES: Mild degenerative changes. VISUALIZED UPPER ABDOMEN: Unremarkable. OTHER FINDINGS: None. IMPRESSION: Right-sided central venous catheter extends to the right atrium. Persistent large right suprahilar opacity compatible with mass. Right apical pleural thickening.
--- NOTE | 2016-06-15 17:04 | PN ---
DATE: 06/15/2016 The patient is experiencing shortness breath and cough. She denies any hemoptysis. PHYSICAL EXAMINATION: VITAL SIGNS: Blood pressure 173/79, heart rate 86, temperature 97.5, respirations 20. HEENT: Pale conjunctivae. CHEST: Bilateral rhonchi. HEART: S1, S2 regular. EXTREMITIES: No edema. LABORATORIES: Today's hemoglobin and hematocrit 10.4 and 33.2, white count 16.6, platelet count 252, 000. SMA-7: BUN and creatinine are 41 and 1.9, glucose of 349, potassium is within normal limits. Official report of the venous Doppler of the lower extremities, no DVT. ASSESSMENT: 1. Mild to moderate probability for pulmonary embolus. 2. Recurrent lung cancer with cavitating right lower lobe lesion. 3. Consider underlying pneumonia. 4. Uncontrolled diabetes mellitus. RECOMMENDATIONS: Continue Coreg at 3.125 mg twice a day. Coumadin 20 mg to be administered today. Continue Crestor at 10 mg once a day. Continue therapeutic intravenous heparin and pulmonary embolis m regimen. Continue digoxin 0.125 mg daily. Continue Solu-Medrol and IV tigecycline. Obtain digoxi n level and a portable chest x-ray. Parrish Bailey MD cc: [id number] TT: 06/15/2016 17:03:34 Confirmation # [id number] Dictation # [id number] jose miguel
[2016-06-15] MEDS: Digoxin 125 mcg (0.125 mg) Tab PO SCH (17:56)
--- NOTE | 2016-06-15 21:16 | PN ---
DATE: 06/15/2016 SUBJECTIVE: Today, the patient is alert and awake. Has less shortness of breath, no chest pain. Po sitive for congestive cough. PHYSICAL EXAMINATION: VITAL SIGNS: The patient has a blood pressure of 172/79, pulse 86, respiration is 20, temperature 97 .5. NECK: Supple. No JVD. LUNGS: There are some rales at the bases. HEART: Regular rate and rhythm, positive murmur. ABDOMEN: Soft, positive bowel sounds. The patient with hydronephrosis bilaterally. EXTREMITIES: There is no edema. LABORATORY DATA: The patient had some blood tests done. WBC 16.6, hemoglobin 10.4, hematocrit 32.2, and platelets 252. Chemistry: Sodium 132, potassium 4.8, chloride 101, bicarb is 21, BUN 41, creat inine 19, and glucose is 349, calcium 4.7. Coag: PT 12.6, INR 1.1. The patient has also urine that showed that vancomycin is resistant faecalis sensitive to Tygacil and ampicillin. PLAN: We are going to continue the medication. The patient was put on Tygacil, as per ID, we are go ing to continue methylprednisolone and also we are going to continue the Lantus. Then also heparin i s going to be continued. The patient will be on Coumadin at 7 mg a day. Isak Mark MD cc: [id number] TT: 06/15/2016 21:15:39 Confirmation # [id number] Dictation # [id number] nicola
[2016-06-15] MEDS: (Lantus) Insulin Glargine, Recombinant SC SCH (21:50)
[2016-06-16] MEDS: Albuterol-Ipratrop 3 mg / 0.5 (3 ml) UD INH SCH ×3 (01:38→19:47)
[2016-06-16 08:20] LABS: BASO % 0.2 % (0.0-2.0); HEMATOCRIT 35.5 % (34.0-47.0); LYMPH # 0.9 K/uL (1.0-4.3); LYMPH % 4.3 % (20.0-40.0); MEAN CELL VOLUME 87.3 fL (81.0-99.0); MEAN CORPUSCULAR HEMOGLOBIN 27.6 pg (27.0-31.0); MEAN CORPUSCULAR HGB CONC 31.6 g/dL (33.0-37.0); MEAN PLATELET VOLUME 8.6 fL (7.2-11.7); MONO # 2.8 K/uL (0.0-0.8); MONO % 13.5 % (0.0-10.0); NRBC % 1.1 % (0.0-2.0); PLATELET COUNT 284 K/uL (130-400); RED CELL DISTRIBUTION WIDTH 15.3 % (11.5-14.5); WHITE BLOOD COUNT 20.4 K/uL (4.8-10.8)
[2016-06-16 08:24] LABS: CHLORIDE 99 mmol/L (98-107)
[2016-06-16 08:25] LABS: POTASSIUM 4.8 mmol/L (3.6-5.2); SODIUM 134 mmol/L (132-148)
[2016-06-16 08:27] LABS: ALB/GLOB RATIO 0.9 (1.0-2.1); AST/SGOT 16 U/L (14-36); BILIRUBIN,TOTAL < 0.1 mg/dL (0.2-1.3); BLOOD UREA NITROGEN 56 mg/dL (7-17); CARBON DIOXIDE 24 mmol/L (22-30); GFR AFRICAN-AMERICAN 28; TOTAL PROTEIN 5.5 g/dL (6.3-8.3)
--- NOTE | 2016-06-16 08:27 | PN ---
DATE: 06/15/2016 The patient is awake, alert. She denied any complaints. She was having less cough and she is still on heparin drip. Urine culture came out positive and they called me that it was VRE, but by the time I came to see her there was no sensitivity for linezolid on the culture report. I called the micro lab and they said it was resistant to linezolid, so I will change this to Tygacil as it is tigecyclin e sensitive and will take away the Zosyn. She is complaining of gas. She denies any other complaint s and is feeling little better. PHYSICAL EXAMINATION: VITAL SIGNS: T-max is 97.5, pulse 86, blood pressure 173/79, respirations are 20. HEAD: Atraumatic , normocephalic. NECK: Supple. JVP is flat. LUNGS: ____. There are decreased breath sounds bilaterally, occasional ____. HEART: S1, S2 is regular. No murmurs appreciated. ABDOMEN: Soft, nontender. No guarding, no rigidity present. EXTREMITIES: No edema, clubbing or cyanosis. Port-A-Cath site appears unremarkable. LABORATORY DATA: Her white count is 16.6 today (has increased), hemoglobin 10.4, hematocrit is 33.2 , platelet count is 252. The chemistry shows sodium is 133, potassium 4.8, chloride 101, CO2 is 21, anion gap is 16, BUN is 41, creatinine 1.9. At this time, I have changed her to tigecycline. The CAT scan report was noted. She has lung cancer and the cavity may be related to the necrotic tumor. I think the cavity may be related to her tumor . She is being treated right now for pulmonary embolism with heparin, lung cancer, chronic obstructi ve pulmonary disease exacerbation is there, and she has a urinary tract infection with vancomycin-res istant Enterococci and chronic renal insufficiency, and has respiratory failure with hypoxia. To continue antibiotics and to follow with pulmonary. I have discontinued Zosyn to prevent duplicati on of antibiotics, as tigecycline will cover the atypicals as well as community-acquired pneumonia. Will follow. Bryan Mullen MD cc: [id number] TT: 06/16/2016 07:19:33 Confirmation # [id number] Dictation # [id number] mn
[2016-06-16 08:28] LABS: ALKALINE PHOSPHATASE 91 U/L (38-126); ALT/SGPT 33 U/L (9-52); CALCIUM 7.9 mg/dl (8.6-10.4); GLUCOSE,RANDOM 284 mg/dL (65-105)
[2016-06-16] MEDS: (Novolin R) Insulin Human Regular 100 units/ml vial SC SCH ×7 (08:53→21:16)
[2016-06-16 09:23] LABS: INR 1.4
[2016-06-16 09:26] LABS: MYELOCYTE 1 % (0-0); NEUTROPHIL 83 % (50-75); NUCLEATED RED BLOOD CELL 2 % (0-0); REACTIVE LYMPHOCYTES 2 % (0-0); TOTAL CELLS COUNTED 100
[2016-06-16] MEDS ORDERED: Heparin25000 units/250ml 1/2NS 250 ML IV PRN (09:26)
--- NOTE | 2016-06-16 09:38 | CP.PCM.PN ---
Subjective - Date & Time of Evaluation Date of Evaluation: 06/16/16 Time of Evaluation: 09:36 - Subjective Subjective: PT ALERT, LESS SOB., RIGHT RIB PAIN. ROS ; OTHERWISE NEG Objective - Vital Signs/Intake and Output Vital Signs (last 24 hours): Temp Pulse Resp BP Pulse Ox 97.6 F 89 20 153/98 H 97 06/16/16 07:55 06/16/16 07:55 06/16/16 07:55 06/16/16 07:55 06/16/16 07:55 Intake and Output: 06/16/16 06/16/16 06:59 18:59 Intake Total 295.2 Output Total 450 Balance -154.8 - Medications Medications: Current Medications Acetaminophen (Tylenol 325mg Tab) 650 mg PO Q6 PRN PRN Reason: Fever >100.4 F Last Admin: 06/12/16 21:20 Dose: 650 mg Albuterol/Ipratropium (Duoneb 3 Mg/0.5 Mg (3 Ml) Ud) 3 ml INH RQ6 [facility] Last Admin: 06/16/16 01:38 Dose: Not Given Carvedilol (Coreg) 3.125 mg PO BID [facility] Last Admin: 06/15/16 17:57 Dose: 3.125 mg Digoxin (Lanoxin) 0.125 mg PO DAILY@1800 [facility] Last Admin: 06/15/16 17:56 Dose: 0.125 mg Tigecycline 50 mg/ Dextrose 100 mls @ 100 mls/hr IV Q12H [facility] Heparin Sodium/Sodium Chloride (Heparin 87511 Units/250ml 1/2 Normal Saline) 250 mls @ 5.398 mls/hr IV .Q24H PRN; Protocol; 7 UNITS/KG/HR PRN Reason: PROTOCOL Last Admin: 06/16/16 09:32 Dose: 5.398 mls/hr Insulin Glargine (Lantus) 20 unit SC HS [facility] Last Admin: 06/15/16 21:50 Dose: 20 units Insulin Human Regular (Novolin R) 0 unit SC ACHS [facility] PRN Reason: Protocol Last Admin: 06/16/16 08:53 Dose: 3 unit Insulin Human Regular (Novolin R) 8 unit SC TIDPC [facility] Last Admin: 06/15/16 17:56 Dose: 8 unit Methylprednisolone (Solu-Medrol) 20 mg IV Q8H [facility] Montelukast Sodium (Singulair) 10 mg PO HS [facility] Last Admin: 06/15/16 21:50 Dose: 10 mg Pantoprazole Sodium (Protonix Ec Tab) 40 mg PO DAILY [facility] Last Admin: 06/15/16 10:33 Dose: 40 mg Promethazine HCl/Dextromethorphan (Phenergan Dm Syrup) 5 ml PO TID [facility] Last Admin: 06/15/16 18:22 Dose: 5 ml Rosuvastatin Calcium (Crestor) 10 mg PO QPM [facility] Last Admin: 06/15/16 17:56 Dose: 10 mg Fluticasone/Salmeterol (Advair Diskus 250/50) 1 puff INH RQ12 [facility] Last Admin: 06/15/16 19:36 Dose: 1 puff - Labs Labs: 06/16/16 08:06 06/16/16 08:06 PT 15.7 SECONDS (9.7-12.2) H 06/16/16 08:06 INR 1.4 06/16/16 08:06 APTT 99 SECONDS (21-34) H D 06/16/16 08:06 - Constitutional Appears: No Acute Distress, Chronically Ill - Head Exam Head Exam: ATRAUMATIC, NORMOCEPHALIC - Eye Exam Eye Exam: EOMI, Normal appearance - ENT Exam ENT Exam: Mucous Membranes Moist - Neck Exam Neck Exam: absent: Tenderness - Respiratory Exam Respiratory Exam: Chest Wall Tenderness, Decreased Breath Sounds, Rhonchi - Cardiovascular Exam Cardiovascular Exam: Irregular Rhythm, +S1, +S2 - GI/Abdominal Exam GI & Abdominal Exam: Soft. absent: Tenderness - Rectal Exam Rectal Exam: Deferred - Extremities Exam Extremities Exam: absent: Calf Tenderness, Pedal Edema - Back Exam Back Exam: absent: CVA tenderness (L), CVA tenderness (R) - Neurological Exam Neurological Exam: Alert, Awake, CN II-XII Intact, Oriented x3 - Psychiatric Exam Psychiatric exam: Normal Affect - Skin Skin Exam: absent: Rash Assessment and Plan (1) Lung cancer Status: Acute (2) SVT (supraventricular tachycardia) Status: Acute (3) Tachycardia Status: Acute (4) Uncontrolled diabetes mellitus with diabetic nephropathy Status: Acute (5) CAD (coronary artery disease) Status: Acute (6) CKD (chronic kidney disease) Status: Acute (7) COPD exacerbation Status: Acute (8) Diabetes Status: Acute (9) Hypertension Status: Acute (10) Pulmonary embolism Status: Acute (11) Respiratory failure with hypoxia Status: Acute - Assessment and Plan (Free Text) Assessment: RESP STATUS NO SIG CHANGE, CONT STEROID TAPER, NEB BD., ADVAIR., AFEBRILE ON AB. , +VRE NOTED. CXR REVIEWED., MONITOR INR ON COUMADIN NOW. PRN ANALGESIA. PROG POOR. DISCUSSED WITH STAFF.
[2016-06-16] MEDS: Pantoprazole 40 mg EC Tab PO SCH (09:51)
[2016-06-16] MEDS: MethylPREDNISolone 40 mg Vial IV SCH ×3 (09:52→21:21)
[2016-06-16] MEDS: Promethazine DM 6.25 mg-15 mg/5 ml Syrup PO SCH ×3 (09:52→18:24)
[2016-06-16] MEDS: Fluticasone-Salmeterol 250-50mcg Diskus INH SCH ×2 (09:59→19:47)
--- NOTE | 2016-06-16 14:41 | CP.PCM.PN ---
Subjective - Date & Time of Evaluation Date of Evaluation: 06/16/16 Time of Evaluation: 02:45 - Subjective Subjective: dictated Objective - Vital Signs/Intake and Output Vital Signs (last 24 hours): Temp Pulse Resp BP Pulse Ox 97.6 F 89 20 153/98 H 97 06/16/16 07:55 06/16/16 07:55 06/16/16 07:55 06/16/16 07:55 06/16/16 07:55 Intake and Output: 06/16/16 06/16/16 06:59 18:59 Intake Total 295.2 Output Total 450 Balance -154.8 - Medications Medications: Current Medications Acetaminophen (Tylenol 325mg Tab) 650 mg PO Q6 PRN PRN Reason: Fever >100.4 F Last Admin: 06/16/16 09:52 Dose: 650 mg Albuterol/Ipratropium (Duoneb 3 Mg/0.5 Mg (3 Ml) Ud) 3 ml INH RQ6 [facility] Last Admin: 06/16/16 10:00 Dose: 3 ml Carvedilol (Coreg) 3.125 mg PO BID [facility] Last Admin: 06/16/16 09:52 Dose: 3.125 mg Digoxin (Lanoxin) 0.125 mg PO DAILY@1800 [facility] Last Admin: 06/15/16 17:56 Dose: 0.125 mg Tigecycline 50 mg/ Dextrose 100 mls @ 100 mls/hr IV Q12H [facility] Heparin Sodium/Sodium Chloride (Heparin 85161 Units/250ml 1/2 Normal Saline) 250 mls @ 5.398 mls/hr IV .Q24H PRN; Protocol; 7 UNITS/KG/HR PRN Reason: PROTOCOL Last Admin: 06/16/16 09:32 Dose: 5.398 mls/hr Insulin Glargine (Lantus) 20 unit SC HS [facility] Last Admin: 06/15/16 21:50 Dose: 20 units Insulin Human Regular (Novolin R) 0 unit SC ACHS [facility] PRN Reason: Protocol Last Admin: 06/16/16 12:51 Dose: 2 unit Insulin Human Regular (Novolin R) 8 unit SC TIDPC [facility] Last Admin: 06/16/16 13:35 Dose: 8 unit Methylprednisolone (Solu-Medrol) 20 mg IV Q8H [facility] Last Admin: 06/16/16 09:52 Dose: 20 mg Montelukast Sodium (Singulair) 10 mg PO HS [facility] Last Admin: 06/15/16 21:50 Dose: 10 mg Pantoprazole Sodium (Protonix Ec Tab) 40 mg PO DAILY [facility] Last Admin: 06/16/16 09:51 Dose: 40 mg Promethazine HCl/Dextromethorphan (Phenergan Dm Syrup) 5 ml PO TID [facility] Last Admin: 06/16/16 09:52 Dose: 5 ml Rosuvastatin Calcium (Crestor) 10 mg PO QPM [facility] Last Admin: 06/15/16 17:56 Dose: 10 mg Fluticasone/Salmeterol (Advair Diskus 250/50) 1 puff INH RQ12 [facility] Last Admin: 06/16/16 09:59 Dose: 1 puff - Labs Labs: 06/16/16 08:06 06/16/16 08:06 PT 15.7 SECONDS (9.7-12.2) H 06/16/16 08:06 INR 1.4 06/16/16 08:06 APTT 99 SECONDS (21-34) H D 06/16/16 08:06
--- NOTE | 2016-06-16 15:42 | PN ---
DATE: 06/16/2016 The patient's shortness of breath has improved. She denies any chest pain, no hemoptysis or epistaxi s. PHYSICAL EXAMINATION: VITAL SIGNS: Blood pressure 153/98, heart rate 89, temperature 97.6, respiration 20. HEENT: Normocephalic. NECK: No JVD. CHEST: Bibasal rhonchi. HEART: S1, S2 regular. EXTREMITIES: No edema. LABORATORIES: Today's white count is 20.4. Hemoglobin, hematocrit and platelet count are within nor mal limits. Today's BUN and creatinine are 56 and 2.1. Slight increase compared to yesterday. Port able chest x-ray revealed right middle lobe mass lesion versus consolidation. The official radiologi st's report is right-sided central venous catheter extends to the right atrium. Persistent large rig ht suprahilar opacity compatible with a mass. Right apical pleural thickening. ASSESSMENT: 1. 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 2. Periods of sinus tachycardia. 3. Uncontrolled diabetes mellitus. 4. Chronic obstructive lung disease. 5. Mild to moderate probability for pulmonary embolus. 6. History of recent cholangitis and biliary stenting. 7. Hydronephrosis with worsening renal insufficiency. RECOMMENDATIONS: Continue current intravenous heparin in a therapeutic regimen for pulmonary embolus . Continue Coreg at 3.125 mg twice a day, Solu-Medrol, IV tigecycline, and oral Protonix. Continue current digitalis. Today's digoxin level is 0.7. Parrish Bailey MD cc: [id number] TT: 06/16/2016 15:41:54 Confirmation # [id number] Dictation # [id number] [id number]
--- NOTE | 2016-06-16 17:45 | CP.PCM.CON ---
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 upper lobe, followed by new primary in rt. lower lobe, s/p RT, observed till late last year, now with rapidly increasing masses consistent with disease progression, now with increasing MORRIS somewhat better on steroids, anticoagulation and antibiotics Past Patient History - Past Medical History & Family History Past Medical History?: Yes Past Family History: Reviewed and not pertinent - Past Social History Smoking Status: Former Smoker Alcohol: None Drugs: Denies - CARDIAC Hx Cardiac Disorders: Yes (CAD, Coronary Stent,) Hx Hypercholesterolemia: Yes Hx Hypertension: Yes - PULMONARY Hx Chronic Obstructive Pulmonary Disease (COPD): Yes - NEUROLOGICAL Hx Neurological Disorder: No Hx Paralysis: No - HEENT Hx HEENT Problems: Yes Hx Epistaxis: Yes Other/Comment: eye glasses for reading - RENAL Hx Renal Failure: Yes (h/o stent placed, now removed) - ENDOCRINE/METABOLIC Hx Diabetes Mellitus Type 2: Yes - HEMATOLOGICAL/ONCOLOGICAL Hx Anemia: Yes - INTEGUMENTARY Hx Dermatological Problems: No - MUSCULOSKELETAL/RHEUMATOLOGICAL Hx Arthritis: Yes - GASTROINTESTINAL Hx Gastrointestinal Disorders: Yes Hx Constipation: Yes - GENITOURINARY/GYNECOLOGICAL Hx Genitourinary Disorders: Yes - PSYCHIATRIC Hx Substance Use: No - SURGICAL HISTORY Hx Coronary Stent: Yes (2004) Hx Pulmonary Surgery: Yes - ANESTHESIA Hx Anesthesia: Yes Hx Anesthesia Reactions: No Hx Malignant Hyperthermia: No Meds Allergies/Adverse Reactions: Allergies Allergy/AdvReac Type Severity Reaction Status Date / Time No Known Allergies Allergy Verified 04/18/16 22:54 - Medications Medications: Current Medications Acetaminophen (Tylenol 325mg Tab) 650 mg PO Q6 PRN PRN Reason: Fever >100.4 F Last Admin: 06/16/16 09:52 Dose: 650 mg Albuterol/Ipratropium (Duoneb 3 Mg/0.5 Mg (3 Ml) Ud) 3 ml INH RQ6 [facility] Last Admin: 06/16/16 10:00 Dose: 3 ml Carvedilol (Coreg) 3.125 mg PO BID [facility] Last Admin: 06/16/16 09:52 Dose: 3.125 mg Digoxin (Lanoxin) 0.125 mg PO DAILY@1800 [facility] Last Admin: 06/15/16 17:56 Dose: 0.125 mg Tigecycline 50 mg/ Dextrose 100 mls @ 100 mls/hr IV Q12H [facility] Heparin Sodium/Sodium Chloride (Heparin 54742 Units/250ml 1/2 Normal Saline) 250 mls @ 5.398 mls/hr IV .Q24H PRN; Protocol; 7 UNITS/KG/HR PRN Reason: PROTOCOL Last Admin: 06/16/16 09:32 Dose: 5.398 mls/hr Insulin Glargine (Lantus) 20 unit SC HS [facility] Last Admin: 06/15/16 21:50 Dose: 20 units Insulin Human Regular (Novolin R) 0 unit SC ACHS [facility] PRN Reason: Protocol Last Admin: 06/16/16 12:51 Dose: 2 unit Insulin Human Regular (Novolin R) 8 unit SC TIDPC [facility] Last Admin: 06/16/16 13:35 Dose: 8 unit Methylprednisolone (Solu-Medrol) 20 mg IV Q8H [facility] Last Admin: 06/16/16 09:52 Dose: 20 mg Montelukast Sodium (Singulair) 10 mg PO HS [facility] Last Admin: 06/15/16 21:50 Dose: 10 mg Pantoprazole Sodium (Protonix Ec Tab) 40 mg PO DAILY [facility] Last Admin: 06/16/16 09:51 Dose: 40 mg Promethazine HCl/Dextromethorphan (Phenergan Dm Syrup) 5 ml PO TID [facility] Last Admin: 06/16/16 16:03 Dose: Not Given Rosuvastatin Calcium (Crestor) 10 mg PO QPM [facility] Last Admin: 06/15/16 17:56 Dose: 10 mg Fluticasone/Salmeterol (Advair Diskus 250/50) 1 puff INH RQ12 [facility] Last Admin: 06/16/16 09:59 Dose: 1 puff Results - Vital Signs Recent Vital Signs: Last Vital Signs Temp 98.0 F 06/16/16 16:00 Pulse 96 H 06/16/16 16:00 Resp 20 06/16/16 16:00 BP 120/76 06/16/16 16:00 Pulse Ox 98 06/16/16 16:00 - Labs Result Diagrams: 06/16/16 08:06 06/16/16 08:06 Labs: Laboratory Results - last 24 hr 06/15/16 06/15/16 06/16/16 21:37 21:40 08:06 WBC 20.4 H RBC 4.06 Hgb 11.2 Hct 35.5 MCV 87.3 MCH 27.6 MCHC 31.6 L RDW 15.3 H Plt Count 284 MPV 8.6 Neut % (Auto) 82.0 H Lymph % (Auto) 4.3 L Cottle % (Auto) 13.5 H Eos % (Auto) 0.0 Baso % (Auto) 0.2 Neut # 16.7 H Lymph # 0.9 L Cottle # 2.8 H Eos # 0.0 Baso # 0.0 Neutrophils % (Manual) 83 H Band Neutrophils % 2 Lymphocytes % (Manual) 2 L Reactive Lymphs % 2 H Monocytes % (Manual) 10 Myelocytes % 1 H Nucleated RBC % 2 H Toxic Granulation Present Platelet Estimate Normal Polychromasia Slight Hypochromasia (manual) Slight Poikilocytosis (manual Slight Basophilic Stippling Slight Anisocytosis (manual) Slight Microcytosis (manual) Slight Macrocytosis (manual) Slight Ovalocytes Slight PT 15.7 H INR 1.4 APTT 59 H D 99 H D Sodium 134 Potassium 4.8 Chloride 99 Carbon Dioxide 24 Anion Gap 17 BUN 56 H Creatinine 2.1 H Est GFR ( Amer) 28 Est GFR (Non-Af Amer) 23 POC Glucose (mg/dL) 282 H Random Glucose 284 H Calcium 7.9 L Total Bilirubin < 0.1 L AST 16 ALT 33 Alkaline Phosphatase 91 Total Protein 5.5 L Albumin 2.6 L Globulin 2.9 Albumin/Globulin Ratio 0.9 L Digoxin 0.7 L 06/16/16 06/16/16 06/16/16 08:21 11:49 15:40 WBC RBC Hgb Hct MCV MCH MCHC RDW Plt Count MPV Neut % (Auto) Lymph % (Auto) Cottle % (Auto) Eos % (Auto) Baso % (Auto) Neut # Lymph # Cottle # Eos # Baso # Neutrophils % (Manual) Band Neutrophils % Lymphocytes % (Manual) Reactive Lymphs % Monocytes % (Manual) Myelocytes % Nucleated RBC % Toxic Granulation Platelet Estimate Polychromasia Hypochromasia (manual) Poikilocytosis (manual Basophilic Stippling Anisocytosis (manual) Microcytosis (manual) Macrocytosis (manual) Ovalocytes PT INR APTT 44 H D Sodium Potassium Chloride Carbon Dioxide Anion Gap BUN Creatinine Est GFR ( Amer) Est GFR (Non-Af Amer) POC Glucose (mg/dL) 274 H 221 H Random Glucose Calcium Total Bilirubin AST ALT Alkaline Phosphatase Total Protein Albumin Globulin Albumin/Globulin Ratio Digoxin 06/16/16 16:42 WBC RBC Hgb Hct MCV MCH MCHC RDW Plt Count MPV Neut % (Auto) Lymph % (Auto) Cottle % (Auto) Eos % (Auto) Baso % (Auto) Neut # Lymph # Cottle # Eos # Baso # Neutrophils % (Manual) Band Neutrophils % Lymphocytes % (Manual) Reactive Lymphs % Monocytes % (Manual) Myelocytes % Nucleated RBC % Toxic Granulation Platelet Estimate Polychromasia Hypochromasia (manual) Poikilocytosis (manual Basophilic Stippling Anisocytosis (manual) Microcytosis (manual) Macrocytosis (manual) Ovalocytes PT INR APTT Sodium Potassium Chloride Carbon Dioxide Anion Gap BUN Creatinine Est GFR ( Amer) Est GFR (Non-Af Amer) POC Glucose (mg/dL) 172 H Random Glucose Calcium Total Bilirubin AST ALT Alkaline Phosphatase Total Protein Albumin Globulin Albumin/Globulin Ratio Digoxin Assessment & Plan (1) Lung cancer Assessment and Plan: 70 yo woman with non small cell lung cancer, rapidly progressive disease, on palliative chemo, but recently unable to get chemo because of severe anemia and frequent hospitalizations. If patient stable at time of D/C, will continue chemo, will need to change type however, currently on Carbo/Gemzar( she is PD1 negative) Status: Acute
[2016-06-16] MEDS: Digoxin 125 mcg (0.125 mg) Tab PO SCH (18:25)
[2016-06-16] MEDS: Tigecycline 50 MG in Dextrose 5% In Water 100 ML IV SCH (18:25)
[2016-06-16] MEDS: Heparin25000 units/250ml 1/2NS 250 ML IV PRN (18:42)
[2016-06-16] MEDS: (Lantus) Insulin Glargine, Recombinant SC SCH (21:22)
--- NOTE | 2016-06-16 21:51 | PN ---
DATE: 06/16/2016 SUBJECTIVE: Today, the patient is alert and awake. Less shortness of breath. No chest pain, but th e patient has been having some shortness of breath on exertion and a decrease of cough. PHYSICAL EXAMINATION: VITAL SIGNS: The patient has a blood pressure of 120/76, pulse is 96, respirations 20, temperature 9 8. HEENT: Head is normocephalic. NECK: Supple. LUNGS: There are some rales at the bases and some expiratory wheezing. HEART: Regular rate and rhythm. Positive murmur. ABDOMEN: Soft, nontender, positive with bilateral hydronephrosis. EXTREMITIES: There is no edema. LABORATORY DATA: The patient had blood tests done. WBC is 20.4, hemoglobin 11.2, hematocrit 25.5 and platelet is 294. Chemistry: Sodium 134, potassium 4, chloride 99, bicarbonate is 24, BUN 56, creatinine 2.1, and glucose 284. Coagulation: PT is 15.7, INR 1.4. ASSESSMENT AND PLAN: The patient has a pulmonary embolism. Is going to continue the heparin. Also we are going to give 7.5 mg of Coumadin. Will continue the patient on Tygacil since the patient is p ositive VRE in the urine. Isak Mark MD cc: [id number] TT: 06/16/2016 21:51:28 Confirmation # [id number] Dictation # [id number]
--- NOTE | 2016-06-16 22:25 | CP.PCM.PN ---
Subjective - Date & Time of Evaluation Date of Evaluation: 06/16/16 Time of Evaluation: 22:23 - Subjective Subjective: uncontrolled dm Objective - Vital Signs/Intake and Output Vital Signs (last 24 hours): Temp Pulse Resp BP Pulse Ox 98.0 F 97 H 20 120/76 98 06/16/16 16:00 06/16/16 16:05 06/16/16 16:00 06/16/16 16:00 06/16/16 16:00 Intake and Output: 06/16/16 06/17/16 18:59 06:59 Intake Total 295.2 Output Total 450 Balance -154.8 - Medications Medications: Current Medications Acetaminophen (Tylenol 325mg Tab) 650 mg PO Q6 PRN PRN Reason: Fever >100.4 F Last Admin: 06/16/16 09:52 Dose: 650 mg Albuterol/Ipratropium (Duoneb 3 Mg/0.5 Mg (3 Ml) Ud) 3 ml INH RQ6 [facility] Last Admin: 06/16/16 19:47 Dose: 3 ml Carvedilol (Coreg) 3.125 mg PO BID [facility] Last Admin: 06/16/16 18:25 Dose: 3.125 mg Digoxin (Lanoxin) 0.125 mg PO DAILY@1800 [facility] Last Admin: 06/16/16 18:25 Dose: 0.125 mg Tigecycline 50 mg/ Dextrose 100 mls @ 100 mls/hr IV Q12H [facility] Last Admin: 06/16/16 18:25 Dose: 100 mls/hr Heparin Sodium/Sodium Chloride (Heparin 20711 Units/250ml 1/2 Normal Saline) 250 mls @ 6.94 mls/hr IV .Q24H PRN; Protocol; 9 UNITS/KG/HR PRN Reason: PROTOCOL Last Admin: 06/16/16 18:42 Dose: 6.94 mls/hr Insulin Glargine (Lantus) 20 unit SC HS [facility] Last Admin: 06/16/16 21:22 Dose: 20 units Insulin Human Regular (Novolin R) 0 unit SC ACHS [facility] PRN Reason: Protocol Last Admin: 06/16/16 21:16 Dose: Not Given Insulin Human Regular (Novolin R) 8 unit SC TIDPC [facility] Last Admin: 06/16/16 18:24 Dose: 8 unit Methylprednisolone (Solu-Medrol) 20 mg IV Q12H [facility] Last Admin: 06/16/16 21:21 Dose: Not Given Montelukast Sodium (Singulair) 10 mg PO HS [facility] Last Admin: 06/16/16 21:22 Dose: 10 mg Pantoprazole Sodium (Protonix Ec Tab) 40 mg PO DAILY [facility] Last Admin: 06/16/16 09:51 Dose: 40 mg Promethazine HCl/Dextromethorphan (Phenergan Dm Syrup) 5 ml PO TID [facility] Last Admin: 06/16/16 18:24 Dose: 5 ml Rosuvastatin Calcium (Crestor) 10 mg PO QPM [facility] Last Admin: 06/16/16 18:24 Dose: 10 mg Fluticasone/Salmeterol (Advair Diskus 250/50) 1 puff INH RQ12 [facility] Last Admin: 06/16/16 19:47 Dose: 1 puff - Labs Labs: 06/16/16 08:06 06/16/16 08:06 PT 15.7 SECONDS (9.7-12.2) H 06/16/16 08:06 INR 1.4 06/16/16 08:06 APTT 44 SECONDS (21-34) H D 06/16/16 15:40 Assessment and Plan (1) Uncontrolled diabetes mellitus with diabetic nephropathy Assessment & Plan: Endocrine consult reason for consult: uncontrolled diabetes pt. is 70 y/o admitted for sob & tachycardia , with pulmonary embolism & COPD excerbation , glucose > 600 on admission as per pt. has DM x 17 years (-) neuropathy , (-) retinopathy , (+) nephropathy blood glucose log :170-200 on solumedrol 20 mg q 12h ( was 40 mg q 8h) NO hypoglycemia Allergy NKDA Past medical history :HTN , HYPERLIPIDEMIA , LUNG cancer , COPD Past surgical history : right lung lopectomy & Left eye catract Psychiatry history : denies Social history : ex-smoking , ex-ETOH use , denies illicit drug use Family history : irrelevant ROS: Constitutional: denies fever ,tiredness/weakness .HEENT: denies earache, change in voice .Respiratory: denies cough, sob . CVS :no chest pain, no palpitations . Abdomen : no abdominal pain, no nausea /vomiting , no change bowel movement . 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 Extremities : no edema , no tremors . Skin: no itching, no rash Physical exam Well developed AAO x3 , ,NAD VSS HEENT: norm cephalic, atraumatic , no lid lag , no exophthalmos NECK: supple, no palpable lymphadenopathy THYROID: no palpable thyromegaly , not tender CHEST: fair air entry, bilateral, CVS: S1,S2 ABDOMEN: bowel sound present, benign, obese, no wide purple striae , no bruises EXTREMITIES: no edema, clubbing or cyanosis, no palpable hand tremors Skin : acanthosis nigricans lab: a1c 7 , tsh 1.15 a1c is pending , cr 2 , NT-probntp 6700, d-dimer 3558, urinr 3+ glucose Assessment uncontrolled DM steroids induced hyperglycemia lung cancer/COPD pulmonary embolism obesity plan - continue lantus 20 units @ 9pm daily - continue novolin R 8 units tid with meals if eat > 60% of the meal -continue Novolin R low dose coverage will f/u Status: Acute (2) Steroid-induced hyperglycemia Status: Acute (3) Lung cancer Status: Acute (4) Pulmonary embolism Status: Acute
--- NOTE | 2016-06-16 22:44 | PN ---
DATE: 06/16/2016 The patient is in isolation since she had VRE in the urine. She denies any new complaints. She ivy es any diarrhea. Denies abdominal pain. Cough is getting better. She was seen by darrick Leyva, her white count has increased to 20K. I had discontinued other antibiotics and continuing only ti gecycline at this time, which is also working for the lungs. She is also being treated for embolism. Temperature is 98, pulse 96, blood pressure 120/76, respirations are 20. HEAD: Atraumatic, normocephalic. Pupils are reacting to light. She has a Port-A-Cath on the right side, but in spite of the Port-A-Cath she has 2 peripheral IVs hep locked. LUNGS: Clear. No crackles or rales present. HEART: S1, S2 is regular. ABDOMEN: Soft, nontender. No guarding, no rigidity present. EXTREMITIES: Have no edema, clubbing, or cyanosis. Her cough is little better, and VRE is only sensitive to tigecycline. I was told it is resistant to linezolid, because I had started that before. LABORATORIES: Show white count is 20.4, hemoglobin 11.2, hematocrit 35.5, platelet count is 284, mary trophils are 84, lymphs are 4.3. So, I am surprised that her white count increased. There was an x-ray done yesterday which showed right-sided central venous catheter extends to the rig ht atrium, persistent large right suprahilar opacity compatible with marked right apical pleural thic kening. So, I see that she does have a tumor persistent, and came in with a high white count, and is found to have VRE in the urine, and pneumonia, and pulmonary embolism, and will follow. Also, I ordered a st ool for C. diff, as sometimes the white count goes up prior to the diarrhea, or it is related just to her , and she also had , and will follow. Her creatinine is 2.1. I noticed her creatinin e also . She does have renal insufficiency also. So, may have to do abdominal CAT scan to eval uate other sources if this white count increases further. Bryan Mullen MD cc: [id number] TT: 06/16/2016 22:43:50 Confirmation # [id number] Dictation # [id number] jn
[2016-06-17] MEDS: Albuterol-Ipratrop 3 mg / 0.5 (3 ml) UD INH SCH ×4 (01:55→20:00)
[2016-06-17] MEDS: Tigecycline 50 MG in Dextrose 5% In Water 100 ML IV SCH ×2 (04:00→16:54)
[2016-06-17] MEDS: Heparin25000 units/250ml 1/2NS 250 ML IV PRN (04:36)
[2016-06-17 07:39] LABS: BASO % 0.1 % (0.0-2.0); EOS % 0.1 % (0.0-4.0); HEMATOCRIT 37.5 % (34.0-47.0); LYMPH % 4.9 % (20.0-40.0); MEAN CELL VOLUME 86.6 fL (81.0-99.0); MEAN CORPUSCULAR HEMOGLOBIN 27.3 pg (27.0-31.0); MEAN CORPUSCULAR HGB CONC 31.5 g/dL (33.0-37.0); MEAN PLATELET VOLUME 8.6 fL (7.2-11.7); MONO # 1.6 K/uL (0.0-0.8); MONO % 7.6 % (0.0-10.0); PLATELET COUNT 321 K/uL (130-400); RED CELL DISTRIBUTION WIDTH 15.3 % (11.5-14.5); WHITE BLOOD COUNT 20.8 K/uL (4.8-10.8)
[2016-06-17] MEDS: Fluticasone-Salmeterol 250-50mcg Diskus INH SCH ×2 (07:42→20:00)
[2016-06-17 07:43] LABS: INR 1.5
[2016-06-17 07:48] LABS: CHLORIDE 100 mmol/L (98-107); SODIUM 135 mmol/L (132-148)
[2016-06-17 07:49] LABS: POTASSIUM 5.2 mmol/L (3.6-5.2)
[2016-06-17 07:51] LABS: ALB/GLOB RATIO 0.9 (1.0-2.1); ALKALINE PHOSPHATASE 85 U/L (38-126); ALT/SGPT 33 U/L (9-52); AST/SGOT 18 U/L (14-36); BILIRUBIN,TOTAL < 0.1 mg/dL (0.2-1.3); BLOOD UREA NITROGEN 64 mg/dL (7-17); CARBON DIOXIDE 22 mmol/L (22-30); GFR AFRICAN-AMERICAN 30; GLUCOSE,RANDOM 151 mg/dL (65-105); TOTAL PROTEIN 5.7 g/dL (6.3-8.3)
[2016-06-17 07:52] LABS: CALCIUM 8.3 mg/dl (8.6-10.4)
[2016-06-17] MEDS: (Novolin R) Insulin Human Regular 100 units/ml vial SC SCH ×7 (08:45→21:34)
[2016-06-17 08:51] LABS: TOTAL CELLS COUNTED 100
[2016-06-17 08:52] LABS: NEUTROPHIL 89 % (50-75)
[2016-06-17 08:54] LABS: GIANT PLATELETS PRESENT; LARGE PLATELETS PRESENT
--- NOTE | 2016-06-17 09:39 | CP.PCM.PN ---
Subjective - Date & Time of Evaluation Date of Evaluation: 06/17/16 Time of Evaluation: 09:37 - Subjective Subjective: PT ALERT, RIB PAIN., +MORRIS. EATING OK. ROS; OTHERWISE NEG. Objective - Vital Signs/Intake and Output Vital Signs (last 24 hours): Temp Pulse Resp BP Pulse Ox 97.7 F 70 20 141/82 99 06/17/16 08:37 06/17/16 08:37 06/17/16 08:37 06/17/16 08:37 06/17/16 08:37 - Medications Medications: Current Medications Acetaminophen (Tylenol 325mg Tab) 650 mg PO Q6 PRN PRN Reason: Fever >100.4 F Last Admin: 06/16/16 09:52 Dose: 650 mg Albuterol/Ipratropium (Duoneb 3 Mg/0.5 Mg (3 Ml) Ud) 3 ml INH RQ6 [facility] Last Admin: 06/17/16 07:42 Dose: 3 ml Carvedilol (Coreg) 3.125 mg PO BID [facility] Last Admin: 06/16/16 18:25 Dose: 3.125 mg Digoxin (Lanoxin) 0.125 mg PO DAILY@1800 [facility] Last Admin: 06/16/16 18:25 Dose: 0.125 mg Tigecycline 50 mg/ Dextrose 100 mls @ 100 mls/hr IV Q12H [facility] Last Admin: 06/16/16 18:25 Dose: 100 mls/hr Heparin Sodium/Sodium Chloride (Heparin 07788 Units/250ml 1/2 Normal Saline) 250 mls @ 6.94 mls/hr IV .Q24H PRN; Protocol; 9 UNITS/KG/HR PRN Reason: PROTOCOL Last Admin: 06/17/16 04:36 Dose: 6.8 mls/hr Insulin Glargine (Lantus) 20 unit SC HS [facility] Last Admin: 06/16/16 21:22 Dose: 20 units Insulin Human Regular (Novolin R) 0 unit SC ACHS [facility] PRN Reason: Protocol Last Admin: 06/17/16 08:45 Dose: 1 unit Insulin Human Regular (Novolin R) 8 unit SC TIDPC [facility] Last Admin: 06/16/16 18:24 Dose: 8 unit Methylprednisolone (Solu-Medrol) 20 mg IV Q12H [facility] Last Admin: 06/16/16 21:21 Dose: Not Given Montelukast Sodium (Singulair) 10 mg PO HS [facility] Last Admin: 06/16/16 21:22 Dose: 10 mg Pantoprazole Sodium (Protonix Ec Tab) 40 mg PO DAILY [facility] Last Admin: 06/16/16 09:51 Dose: 40 mg Promethazine HCl/Dextromethorphan (Phenergan Dm Syrup) 5 ml PO TID [facility] Last Admin: 06/16/16 18:24 Dose: 5 ml Rosuvastatin Calcium (Crestor) 10 mg PO QPM [facility] Last Admin: 06/16/16 18:24 Dose: 10 mg Fluticasone/Salmeterol (Advair Diskus 250/50) 1 puff INH RQ12 [facility] Last Admin: 06/17/16 07:42 Dose: 1 puff - Labs Labs: 06/17/16 07:26 06/17/16 07:26 PT 17.8 SECONDS (9.7-12.2) H 06/17/16 07:26 INR 1.5 06/17/16 07:26 APTT 60 SECONDS (21-34) H D 06/17/16 07:26 - Constitutional Appears: Chronically Ill - Head Exam Head Exam: ATRAUMATIC, NORMOCEPHALIC - Eye Exam Eye Exam: EOMI, Normal appearance - ENT Exam ENT Exam: Mucous Membranes Moist - Neck Exam Neck Exam: absent: Tenderness - Respiratory Exam Respiratory Exam: Chest Wall Tenderness, Decreased Breath Sounds, Rhonchi - Cardiovascular Exam Cardiovascular Exam: Tachycardia, +S1, +S2 - GI/Abdominal Exam GI & Abdominal Exam: Soft. absent: Tenderness - Rectal Exam Rectal Exam: Deferred - Extremities Exam Extremities Exam: absent: Calf Tenderness, Pedal Edema - Back Exam Back Exam: absent: CVA tenderness (L), CVA tenderness (R) - Neurological Exam Neurological Exam: Alert, Awake, CN II-XII Intact, Oriented x3 - Psychiatric Exam Psychiatric exam: Normal Affect - Skin Skin Exam: absent: Rash Assessment and Plan (1) Lung cancer Status: Acute (2) SVT (supraventricular tachycardia) Status: Acute (3) Tachycardia Status: Acute (4) Uncontrolled diabetes mellitus with diabetic nephropathy Status: Acute (5) CAD (coronary artery disease) Status: Acute (6) CKD (chronic kidney disease) Status: Acute (7) COPD exacerbation Status: Acute (8) Diabetes Status: Acute (9) Hypertension Status: Acute (10) Pulmonary embolism Status: Acute (11) Respiratory failure with hypoxia Status: Acute - Assessment and Plan (Free Text) Assessment: RESP STATUS NO SIG CHANGE., ON IV HEPARIN, MONITOR COAGS., CONT STEROID TAPER TOLERATED., CONT NEB BD., MONITOR O2 SAT., ANALGESIA PRN., ONC EVAL NOTED., PROG POOR., CXR REVIEWED., AFEBRILE ON AB., DISCUSSED WITH STAFF.
[2016-06-17] MEDS ORDERED: Oxycodone/Acetaminophen 5/325 mg Tab PO PRN (09:45)
[2016-06-17] MEDS: Pantoprazole 40 mg EC Tab PO SCH (09:46)
[2016-06-17] MEDS: MethylPREDNISolone 40 mg Vial IV SCH (09:46)
[2016-06-17] MEDS: Promethazine DM 6.25 mg-15 mg/5 ml Syrup PO SCH ×3 (09:46→17:03)
--- NOTE | 2016-06-17 14:49 | PN ---
DATE: 06/17/2016 SUBJECTIVE: The patient's shortness of breath has not gotten any worse. She denies any hemoptysis. No retrosternal chest pain. PHYSICAL EXAMINATION: VITAL SIGNS: Blood pressure 141/82, heart rate 70, temperature 97.7, respirations 20. HEENT: Normocephalic. NECK: No JVD. CHEST: Diminished breath sounds over the right base. HEART: S1, S2 regular. ABDOMEN: Soft. EXTREMITIES: No edema. LABORATORY DATA: Today's BUN and creatinine are 64 and 2.0. Glucose is 151, potassium is 5.2. The rest of SMA-7 is within normal limits. CBC: WBC 20.8, hemoglobin 11.8, hematocrit 37.5, platelet co unt 321,000. PTT 60. INR 1.5. ASSESSMENT: 1. Mild to moderate probability for pulmonary embolus. 2. 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 3. Hypertension. 4. Diabetes mellitus. RECOMMENDATIONS: Continue current Crestor, Lanoxin, Singulair, Solu-Medrol, tigecycline. Continue t herapeutic intravenous heparin until a therapeutic INR is achieved. Coumadin 7.5 was ordered for tosterling hansen and I agree with the dose. Parrish Bailey MD cc: [id number] TT: 06/17/2016 14:48:49 Confirmation # [id number] Dictation # [id number] mn
[2016-06-17] MEDS: Digoxin 125 mcg (0.125 mg) Tab PO SCH (17:03)
--- NOTE | 2016-06-17 18:25 | PN ---
DATE: 06/17/2016 SUBJECTIVE: Today, the patient is alert and awake, but complaining of shortness of breath as w ell as going to the bathroom a few feet. The patient said that she is short of breath, but however, the patient denied any chest pain. Positive for cough. PHYSICAL EXAMINATION: VITAL SIGNS: The patient has a blood pressure of 137/83, pulse is 116, respiration is 20, temperatur e 97.8. HEAD: Normocephalic. NECK: Supple and no JVD. LUNGS: Has some wheezing. HEART: Regular rate and rhythm. ABDOMEN: Soft, nontender. Hydronephrosis. EXTREMITIES: There is no edema. PLAN: The is 17.8 and INR is 1.5, so we are going to continue the Coumadin, continue the hepar in and we will consider sending the patient for home oxygen and to be therapeutic before the patient is discharged. The case was discussed with Laine Elliott. Isak Mark MD cc: [id number] TT: 06/17/2016 18:24:54 Confirmation # [id number] Dictation # [id number] mn
--- NOTE | 2016-06-17 21:05 | CP.PCM.PN ---
Subjective - Date & Time of Evaluation Date of Evaluation: 06/17/16 Time of Evaluation: 02:30 - Subjective Subjective: dictated Objective - Vital Signs/Intake and Output Vital Signs (last 24 hours): Temp Pulse Resp BP Pulse Ox 97.8 F 116 H 20 137/83 98 06/17/16 16:00 06/17/16 16:00 06/17/16 16:00 06/17/16 16:00 06/17/16 16:00 - Medications Medications: Current Medications Acetaminophen (Tylenol 325mg Tab) 650 mg PO Q6 PRN PRN Reason: Fever >100.4 F Last Admin: 06/16/16 09:52 Dose: 650 mg Albuterol/Ipratropium (Duoneb 3 Mg/0.5 Mg (3 Ml) Ud) 3 ml INH RQ6 [facility] Last Admin: 06/17/16 20:00 Dose: 3 ml Carvedilol (Coreg) 3.125 mg PO BID [facility] Last Admin: 06/17/16 17:03 Dose: 3.125 mg Digoxin (Lanoxin) 0.125 mg PO DAILY@1800 [facility] Last Admin: 06/17/16 17:03 Dose: 0.125 mg Tigecycline 50 mg/ Dextrose 100 mls @ 100 mls/hr IV Q12H [facility] Last Admin: 06/17/16 16:54 Dose: 100 mls/hr Heparin Sodium/Sodium Chloride (Heparin 22413 Units/250ml 1/2 Normal Saline) 250 mls @ 6.94 mls/hr IV .Q24H PRN; Protocol; 9 UNITS/KG/HR PRN Reason: PROTOCOL Last Admin: 06/17/16 04:36 Dose: 6.8 mls/hr Insulin Glargine (Lantus) 20 unit SC HS [facility] Last Admin: 06/16/16 21:22 Dose: 20 units Insulin Human Regular (Novolin R) 0 unit SC ACHS [facility] PRN Reason: Protocol Last Admin: 06/17/16 16:53 Dose: 1 unit Insulin Human Regular (Novolin R) 8 unit SC TIDPC [facility] Last Admin: 06/17/16 19:00 Dose: 8 unit Methylprednisolone (Solu-Medrol) 20 mg IV DAILY [facility] Montelukast Sodium (Singulair) 10 mg PO HS [facility] Last Admin: 06/16/16 21:22 Dose: 10 mg Oxycodone/Acetaminophen (Percocet 5/325 Mg Tab) 1 tab PO Q6H PRN PRN Reason: Pain, moderate (4-7) Stop: 06/20/16 09:46 Pantoprazole Sodium (Protonix Ec Tab) 40 mg PO DAILY [facility] Last Admin: 06/17/16 09:46 Dose: 40 mg Promethazine HCl/Dextromethorphan (Phenergan Dm Syrup) 5 ml PO TID [facility] Last Admin: 06/17/16 17:03 Dose: 5 ml Rosuvastatin Calcium (Crestor) 10 mg PO QPM [facility] Last Admin: 06/17/16 17:04 Dose: 10 mg Fluticasone/Salmeterol (Advair Diskus 250/50) 1 puff INH RQ12 [facility] Last Admin: 06/17/16 20:00 Dose: Not Given - Labs Labs: 06/17/16 07:26 06/17/16 07:26 PT 17.8 SECONDS (9.7-12.2) H 06/17/16 07:26 INR 1.5 06/17/16 07:26 APTT 60 SECONDS (21-34) H D 06/17/16 07:26
--- NOTE | 2016-06-17 21:06 | CP.PCM.PN ---
Subjective - Date & Time of Evaluation Date of Evaluation: 06/17/16 Time of Evaluation: 21:02 - Subjective Subjective: uncontrolled dm Objective - Vital Signs/Intake and Output Vital Signs (last 24 hours): Temp Pulse Resp BP Pulse Ox 97.8 F 116 H 20 137/83 98 06/17/16 16:00 06/17/16 16:00 06/17/16 16:00 06/17/16 16:00 06/17/16 16:00 - Medications Medications: Current Medications Acetaminophen (Tylenol 325mg Tab) 650 mg PO Q6 PRN PRN Reason: Fever >100.4 F Last Admin: 06/16/16 09:52 Dose: 650 mg Albuterol/Ipratropium (Duoneb 3 Mg/0.5 Mg (3 Ml) Ud) 3 ml INH RQ6 [facility] Last Admin: 06/17/16 20:00 Dose: 3 ml Carvedilol (Coreg) 3.125 mg PO BID [facility] Last Admin: 06/17/16 17:03 Dose: 3.125 mg Digoxin (Lanoxin) 0.125 mg PO DAILY@1800 [facility] Last Admin: 06/17/16 17:03 Dose: 0.125 mg Tigecycline 50 mg/ Dextrose 100 mls @ 100 mls/hr IV Q12H [facility] Last Admin: 06/17/16 16:54 Dose: 100 mls/hr Heparin Sodium/Sodium Chloride (Heparin 68107 Units/250ml 1/2 Normal Saline) 250 mls @ 6.94 mls/hr IV .Q24H PRN; Protocol; 9 UNITS/KG/HR PRN Reason: PROTOCOL Last Admin: 06/17/16 04:36 Dose: 6.8 mls/hr Insulin Glargine (Lantus) 20 unit SC HS [facility] Last Admin: 06/16/16 21:22 Dose: 20 units Insulin Human Regular (Novolin R) 0 unit SC ACHS [facility] PRN Reason: Protocol Last Admin: 06/17/16 16:53 Dose: 1 unit Insulin Human Regular (Novolin R) 8 unit SC TIDPC [facility] Last Admin: 06/17/16 19:00 Dose: 8 unit Methylprednisolone (Solu-Medrol) 20 mg IV DAILY [facility] Montelukast Sodium (Singulair) 10 mg PO HS [facility] Last Admin: 06/16/16 21:22 Dose: 10 mg Oxycodone/Acetaminophen (Percocet 5/325 Mg Tab) 1 tab PO Q6H PRN PRN Reason: Pain, moderate (4-7) Stop: 06/20/16 09:46 Pantoprazole Sodium (Protonix Ec Tab) 40 mg PO DAILY [facility] Last Admin: 06/17/16 09:46 Dose: 40 mg Promethazine HCl/Dextromethorphan (Phenergan Dm Syrup) 5 ml PO TID [facility] Last Admin: 06/17/16 17:03 Dose: 5 ml Rosuvastatin Calcium (Crestor) 10 mg PO QPM [facility] Last Admin: 06/17/16 17:04 Dose: 10 mg Fluticasone/Salmeterol (Advair Diskus 250/50) 1 puff INH RQ12 [facility] Last Admin: 06/17/16 20:00 Dose: Not Given - Labs Labs: 06/17/16 07:26 06/17/16 07:26 PT 17.8 SECONDS (9.7-12.2) H 06/17/16 07:26 INR 1.5 06/17/16 07:26 APTT 60 SECONDS (21-34) H D 06/17/16 07:26 Assessment and Plan (1) Uncontrolled diabetes mellitus with diabetic nephropathy Assessment & Plan: Assessment & Plan: Endocrine consult reason for consult: uncontrolled diabetes pt. is 70 y/o admitted for sob & tachycardia , with pulmonary embolism & COPD excerbation , glucose > 600 on admission as per pt. has DM x 17 years (-) neuropathy , (-) retinopathy , (+) nephropathy blood glucose log :160-170 one episode of 121 on solumedrol 20 mg q d ( was on 20 bid ) NO hypoglycemia Allergy NKDA Past medical history :HTN , HYPERLIPIDEMIA , LUNG cancer , COPD Past surgical history : right lung lopectomy & Left eye catract Psychiatry history : denies Social history : ex-smoking , ex-ETOH use , denies illicit drug use Family history : irrelevant ROS: Constitutional: denies fever ,tiredness/weakness .HEENT: denies earache, change in voice .Respiratory: denies cough, sob . CVS :no chest pain, no palpitations . Abdomen : no abdominal pain, no nausea /vomiting , no change bowel movement . 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 Extremities : no edema , no tremors . Skin: no itching, no rash Physical exam Well developed AAO x3 , ,NAD VSS HEENT: norm cephalic, atraumatic , no lid lag , no exophthalmos NECK: supple, no palpable lymphadenopathy THYROID: no palpable thyromegaly , not tender CHEST: fair air entry, bilateral, CVS: S1,S2 ABDOMEN: bowel sound present, benign, obese, no wide purple striae , no bruises EXTREMITIES: no edema, clubbing or cyanosis, no palpable hand tremors Skin : acanthosis nigricans lab: a1c 7 , tsh 1.15 a1c is pending , cr 2 , NT-probntp 6700, d-dimer 3558, urinr 3+ glucose Assessment uncontrolled DM steroids induced hyperglycemia lung cancer/COPD pulmonary embolism obesity plan - continue lantus 20 units @ 9pm daily - decrease novolin R 6 units tid with meals if eat > 60% of the meal -continue Novolin R low dose coverage will f/u Status: Acute (2) Steroid-induced hyperglycemia Status: Acute (3) Lung cancer Status: Acute (4) Pulmonary embolism Status: Acute
--- NOTE | 2016-06-17 21:25 | PN ---
DATE: 06/17/2016 The patient said she feels the same. She still has dyspnea on exertion. Also was complaining of rib pain. She has a urinary tract infection and she has been on Tygacil. Her white count remains eleva daniela. She still needs IV antibiotics. I was told Linezolid is not going to work, it was high resistan ce. PHYSICAL EXAMINATION: VITAL SIGNS: T-max is 97.8, heart rate is 116, blood pressure is 137/83, respirations are 20. HEENT: Head is atraumatic, normocephalic. NECK: Supple. LUNGS: Decreased breath sounds bilaterally. HEART: S1, S2 regular. ABDOMEN: Soft, nontender, no guarding, no rigidity present. EXTREMITIES: No edema, clubbing or cyanosis. She was having increasing heart rate. She has history of SVT and has lung cancer. Has a urine with VRE, uncontrolled diabetes with diabetic nephropathy, coronary artery disease. She was also on stero ids. Need to taper the steroids as the white count could be increased due to steroids or due to seps is. She is now only on steroid once a day. Will repeat the labs tomorrow. Urine culture has been o rdered. We will follow. Bryan Mullen MD cc: [id number] TT: 06/17/2016 21:25:12 Confirmation # [id number] Dictation # [id number] rach
[2016-06-18] MEDS: Albuterol-Ipratrop 3 mg / 0.5 (3 ml) UD INH SCH ×4 (01:39→19:43)
[2016-06-18] MEDS: Tigecycline 50 MG in Dextrose 5% In Water 100 ML IV SCH ×2 (03:00→17:38)
[2016-06-18 08:00] LABS: CALCIUM 8.5 mg/dl (8.6-10.4)
[2016-06-18 08:04] LABS: BASO % 0.2 % (0.0-2.0); EOS % 0.1 % (0.0-4.0); HEMATOCRIT 37.4 % (34.0-47.0); LYMPH % 4.6 % (20.0-40.0); MEAN CELL VOLUME 87.5 fL (81.0-99.0); MEAN CORPUSCULAR HEMOGLOBIN 27.8 pg (27.0-31.0); MEAN CORPUSCULAR HGB CONC 31.7 g/dL (33.0-37.0); MONO # 2.5 K/uL (0.0-0.8); MONO % 11.1 % (0.0-10.0); NRBC % 1.3 % (0.0-2.0); PLATELET COUNT 350 K/uL (130-400); RED CELL DISTRIBUTION WIDTH 15.9 % (11.5-14.5); WHITE BLOOD COUNT 22.4 K/uL (4.8-10.8)
[2016-06-18] MEDS: Fluticasone-Salmeterol 250-50mcg Diskus INH SCH ×2 (08:11→19:45)
[2016-06-18 08:13] LABS: INR 1.9
[2016-06-18] MEDS: (Novolin R) Insulin Human Regular 100 units/ml vial SC SCH ×7 (08:13→22:21)
[2016-06-18 09:45] LABS: MYELOCYTE 1 % (0-0); NEUTROPHIL 80 % (50-75); TOTAL CELLS COUNTED 100
[2016-06-18] MEDS ORDERED: MethylPREDNISolone 40 mg Vial IV SCH (10:00)
[2016-06-18] MEDS: Pantoprazole 40 mg EC Tab PO SCH (10:51)
[2016-06-18] MEDS: Promethazine DM 6.25 mg-15 mg/5 ml Syrup PO SCH ×3 (10:51→17:57)
--- NOTE | 2016-06-18 13:52 | CP.PCM.PN ---
Subjective - Date & Time of Evaluation Date of Evaluation: 06/18/16 Time of Evaluation: 10:00 - Subjective Subjective: Pt seen and examined today , denies any chest pain, c/o R side rib pain , sob with minimal exertion, even with few feet on and off tachycardia noted on monitor Objective - Vital Signs/Intake and Output Vital Signs (last 24 hours): Temp Pulse Resp BP Pulse Ox 97.5 F L 101 H 19 152/83 H 98 06/18/16 08:28 06/18/16 08:28 06/18/16 08:28 06/18/16 08:28 06/18/16 08:28 Intake and Output: 06/18/16 06/18/16 06:59 18:59 Intake Total 804.4 Balance 804.4 - Medications Medications: Current Medications Acetaminophen (Tylenol 325mg Tab) 650 mg PO Q6 PRN PRN Reason: Fever >100.4 F Last Admin: 06/16/16 09:52 Dose: 650 mg Albuterol/Ipratropium (Duoneb 3 Mg/0.5 Mg (3 Ml) Ud) 3 ml INH RQ6 [facility] Last Admin: 06/18/16 08:10 Dose: 3 ml Carvedilol (Coreg) 3.125 mg PO BID [facility] Last Admin: 06/18/16 10:51 Dose: 3.125 mg Digoxin (Lanoxin) 0.125 mg PO DAILY@1800 [facility] Last Admin: 06/17/16 17:03 Dose: 0.125 mg Tigecycline 50 mg/ Dextrose 100 mls @ 100 mls/hr IV Q12H [facility] Last Admin: 06/18/16 03:00 Dose: 100 mls/hr Insulin Glargine (Lantus) 20 unit SC [facility] Last Admin: 06/16/16 21:22 Dose: 20 units Insulin Human Regular (Novolin R) 0 unit SC ACHS [facility] PRN Reason: Protocol Last Admin: 06/18/16 12:16 Dose: Not Given Insulin Human Regular (Novolin R) 6 unit SC TIDPC [facility] Last Admin: 06/18/16 12:16 Dose: Not Given Methylprednisolone (Solu-Medrol) 20 mg IV DAILY [facility] Last Admin: 06/18/16 10:52 Dose: 20 mg Montelukast Sodium (Singulair) 10 mg PO [facility] Last Admin: 06/16/16 21:22 Dose: 10 mg Oxycodone/Acetaminophen (Percocet 5/325 Mg Tab) 1 tab PO Q6H PRN PRN Reason: Pain, moderate (4-7) Stop: 06/20/16 09:46 Pantoprazole Sodium (Protonix Ec Tab) 40 mg PO DAILY [facility] Last Admin: 06/18/16 10:51 Dose: 40 mg Promethazine HCl/Dextromethorphan (Phenergan Dm Syrup) 5 ml PO TID [facility] Last Admin: 06/18/16 10:51 Dose: 5 ml Rosuvastatin Calcium (Crestor) 10 mg PO QPM [facility] Last Admin: 06/17/16 17:04 Dose: 10 mg Fluticasone/Salmeterol (Advair Diskus 250/50) 1 puff INH RQ12 [facility] Last Admin: 06/18/16 08:11 Dose: Not Given Warfarin Sodium (Coumadin) 5 mg PO 1800 [facility] Stop: 06/18/16 18:01 - Labs Labs: 06/18/16 07:47 06/18/16 07:20 PT 21.3 SECONDS (9.7-12.2) H 06/18/16 07:47 INR 1.9 06/18/16 07:47 APTT 61 SECONDS (21-34) H 06/18/16 07:47 - Constitutional Appears: Well (mild resp. 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 assessment/plan !. PE- continue heparin drip . until INR therapeutic , INR today 1.9 yonatan give 5 mg coumadin 2. VRE - in urine - continue tygacil , repeat urine culture result pending 3.. COPD- COPD exc. has been resolved . will taper off solumedrol . Pt tested in a chronic stable state. all therapies have been in effective and patient will require home o2 .
--- NOTE | 2016-06-18 16:44 | CP.PCM.PN ---
Subjective - Date & Time of Evaluation Date of Evaluation: 06/18/16 Time of Evaluation: 16:42 - Subjective Subjective: PT FEELS SAME, LESS COUGH.+MORRIS. +RIGHT RIB PAINS. ROS; OTHERWISE NEG Objective - Vital Signs/Intake and Output Vital Signs (last 24 hours): Temp Pulse Resp BP Pulse Ox 97.5 F L 74 19 152/83 H 98 06/18/16 08:28 06/18/16 16:00 06/18/16 08:28 06/18/16 08:28 06/18/16 08:28 Intake and Output: 06/18/16 06/18/16 06:59 18:59 Intake Total 804.4 Balance 804.4 - Medications Medications: Current Medications Acetaminophen (Tylenol 325mg Tab) 650 mg PO Q6 PRN PRN Reason: Fever >100.4 F Last Admin: 06/16/16 09:52 Dose: 650 mg Albuterol/Ipratropium (Duoneb 3 Mg/0.5 Mg (3 Ml) Ud) 3 ml INH RQ6 [facility] Last Admin: 06/18/16 13:49 Dose: 3 ml Carvedilol (Coreg) 3.125 mg PO BID [facility] Last Admin: 06/18/16 10:51 Dose: 3.125 mg Digoxin (Lanoxin) 0.125 mg PO DAILY@1800 [facility] Last Admin: 06/17/16 17:03 Dose: 0.125 mg Tigecycline 50 mg/ Dextrose 100 mls @ 100 mls/hr IV Q12H [facility] Last Admin: 06/18/16 03:00 Dose: 100 mls/hr Insulin Glargine (Lantus) 20 unit SC [facility] Last Admin: 06/16/16 21:22 Dose: 20 units Insulin Human Regular (Novolin R) 0 unit SC ACHS [facility] PRN Reason: Protocol Last Admin: 06/18/16 12:16 Dose: Not Given Insulin Human Regular (Novolin R) 6 unit SC TIDPC [facility] Last Admin: 06/18/16 13:52 Dose: Not Given Montelukast Sodium (Singulair) 10 mg PO [facility] Last Admin: 06/16/16 21:22 Dose: 10 mg Oxycodone/Acetaminophen (Percocet 5/325 Mg Tab) 1 tab PO Q6H PRN PRN Reason: Pain, moderate (4-7) Stop: 06/20/16 09:46 Pantoprazole Sodium (Protonix Ec Tab) 40 mg PO DAILY [facility] Last Admin: 06/18/16 10:51 Dose: 40 mg Prednisone (Prednisone Tab) 10 mg PO DAILY [facility] Promethazine HCl/Dextromethorphan (Phenergan Dm Syrup) 5 ml PO TID [facility] Last Admin: 06/18/16 14:12 Dose: 5 ml Rosuvastatin Calcium (Crestor) 10 mg PO QPM [facility] Last Admin: 06/17/16 17:04 Dose: 10 mg Fluticasone/Salmeterol (Advair Diskus 250/50) 1 puff INH RQ12 [facility] Last Admin: 06/18/16 08:11 Dose: Not Given Warfarin Sodium (Coumadin) 5 mg PO 1800 [facility] Stop: 06/18/16 18:01 - Labs Labs: 06/18/16 07:47 06/18/16 07:20 PT 21.3 SECONDS (9.7-12.2) H 06/18/16 07:47 INR 1.9 06/18/16 07:47 APTT 61 SECONDS (21-34) H 06/18/16 07:47 - Constitutional Appears: No Acute Distress, Chronically Ill - Head Exam Head Exam: ATRAUMATIC, NORMOCEPHALIC - Eye Exam Eye Exam: EOMI, Normal appearance. absent: Scleral icterus - ENT Exam ENT Exam: Mucous Membranes Moist - Neck Exam Neck Exam: absent: Tenderness - Respiratory Exam Respiratory Exam: Decreased Breath Sounds. absent: Accessory Muscle Use - Cardiovascular Exam Cardiovascular Exam: Tachycardia, +S1, +S2 - GI/Abdominal Exam GI & Abdominal Exam: Soft. absent: Tenderness - Rectal Exam Rectal Exam: Deferred - Extremities Exam Extremities Exam: absent: Calf Tenderness, Pedal Edema - Back Exam Back Exam: absent: CVA tenderness (L), CVA tenderness (R) - Neurological Exam Neurological Exam: Alert, Awake, CN II-XII Intact, Oriented x3 - Psychiatric Exam Psychiatric exam: Normal Affect - Skin Skin Exam: absent: Rash Assessment and Plan (1) Lung cancer Status: Acute (2) SVT (supraventricular tachycardia) Status: Acute (3) Tachycardia Status: Acute (4) Uncontrolled diabetes mellitus with diabetic nephropathy Status: Acute (5) CAD (coronary artery disease) Status: Acute (6) CKD (chronic kidney disease) Status: Acute (7) COPD exacerbation Status: Acute (8) Diabetes Status: Acute (9) Hypertension Status: Acute (10) Pulmonary embolism Status: Acute (11) Respiratory failure with hypoxia Status: Acute - Assessment and Plan (Free Text) Assessment: RESP STATUS SLOW IMPROVEMENT., TOLERATING STEROID TAPER. O2 DESAT WITH EXERCISE NOTED, TO ARRANGE FOR HOME O2 AT 2L. CONT NEB BD., CXR REVIEWED., ON IV HEPARIN , COUMADIN ADDED, MONITOR O2 SAT. AFEBRILE ON AB. PROG POOR. DISCUSSED WITH STAFF.
--- NOTE | 2016-06-18 16:59 | CP.PCM.PN ---
Subjective - Date & Time of Evaluation Date of Evaluation: 06/18/16 Time of Evaluation: 04:30 - Subjective Subjective: dictated Objective - Vital Signs/Intake and Output Vital Signs (last 24 hours): Temp Pulse Resp BP Pulse Ox 97.5 F L 74 19 152/83 H 98 06/18/16 08:28 06/18/16 16:00 06/18/16 08:28 06/18/16 08:28 06/18/16 08:28 Intake and Output: 06/18/16 06/18/16 06:59 18:59 Intake Total 804.4 Balance 804.4 - Medications Medications: Current Medications Acetaminophen (Tylenol 325mg Tab) 650 mg PO Q6 PRN PRN Reason: Fever >100.4 F Last Admin: 06/16/16 09:52 Dose: 650 mg Albuterol/Ipratropium (Duoneb 3 Mg/0.5 Mg (3 Ml) Ud) 3 ml INH RQ6 [facility] Last Admin: 06/18/16 13:49 Dose: 3 ml Carvedilol (Coreg) 3.125 mg PO BID [facility] Last Admin: 06/18/16 10:51 Dose: 3.125 mg Digoxin (Lanoxin) 0.125 mg PO DAILY@1800 [facility] Last Admin: 06/17/16 17:03 Dose: 0.125 mg Tigecycline 50 mg/ Dextrose 100 mls @ 100 mls/hr IV Q12H [facility] Last Admin: 06/18/16 03:00 Dose: 100 mls/hr Insulin Glargine (Lantus) [address] [facility] Last Admin: 06/16/16 21:22 Dose: 20 units Insulin Human Regular (Novolin R) 0 unit SC ACHS [facility] PRN Reason: Protocol Last Admin: 06/18/16 12:16 Dose: Not Given Insulin Human Regular (Novolin R) 6 unit SC TIDPC [facility] Last Admin: 06/18/16 13:52 Dose: Not Given Montelukast Sodium (Singulair) [address] [facility] Last Admin: 06/16/16 21:22 Dose: 10 mg Oxycodone/Acetaminophen (Percocet 5/325 Mg Tab) 1 tab PO Q6H PRN PRN Reason: Pain, moderate (4-7) Stop: 06/20/16 09:46 Pantoprazole Sodium (Protonix Ec Tab) 40 mg PO DAILY [facility] Last Admin: 06/18/16 10:51 Dose: 40 mg Prednisone (Prednisone Tab) 10 mg PO DAILY [facility] Promethazine HCl/Dextromethorphan (Phenergan Dm Syrup) 5 ml PO TID [facility] Last Admin: 06/18/16 14:12 Dose: 5 ml Rosuvastatin Calcium (Crestor) 10 mg PO QPM [facility] Last Admin: 06/17/16 17:04 Dose: 10 mg Fluticasone/Salmeterol (Advair Diskus 250/50) 1 puff INH RQ12 [facility] Last Admin: 06/18/16 08:11 Dose: Not Given Warfarin Sodium (Coumadin) 5 mg PO 1800 [facility] Stop: 06/18/16 18:01 - Labs Labs: 06/18/16 07:47 06/18/16 07:20 PT 21.3 SECONDS (9.7-12.2) H 06/18/16 07:47 INR 1.9 06/18/16 07:47 APTT 61 SECONDS (21-34) H 06/18/16 07:47
--- NOTE | 2016-06-18 17:23 | PN ---
DATE: 06/18/2016 The patient is experiencing mild shortness of breath. She denies any hemoptysis. She also complain s of sharp right-sided pectoral pain. PHYSICAL EXAMINATION: VITAL SIGNS: Blood pressure 152/83, heart rate 101, temperature 97.5, respirations 19. HEENT: Normocephalic. NECK: No JVD. CHEST: Absent breath sounds over the right base. HEART: S1, S2 regular. ABDOMEN: Soft. EXTREMITIES: No edema. LABORATORIES: Today's BUN and creatinine are 72 and 2.1. Today's sugar in the morning was 37. Subs equent blood sugar was 138 at 11:10 a.m. Calcium is below normal at 8.5. INR is 1.9, PTT 61 seconds . ASSESSMENT: 1. Recurrent lung carcinoma. 2. Status post hypoglycemic episode. The patient has uncontrolled diabetes mellitus. 3. Mild to moderate probability for pulmonary embolism. 4. Chronic renal insufficiency. 5. Hypocalcemia. RECOMMENDATIONS: Continue current Coreg at 3.125 mg twice a day, Coumadin 5 mg to be administered to day. Continue Lanoxin 0.125 mg once a day, Crestor 10 mg once a day, IV tigecycline 50 mg twice a da y. Parrish Bailey MD cc: [id number] TT: 06/18/2016 17:22:53 Confirmation # [id number] Dictation # [id number] rach
[2016-06-18 17:27] VITALS: RESP 20
[2016-06-18] MEDS: Digoxin 125 mcg (0.125 mg) Tab PO SCH (17:39)
--- NOTE | 2016-06-18 18:06 | PN ---
DATE: 06/18/2016 The patient says she is feeling better. She wants to go home, but her white count has increased. Inocente lyons was seen by Dr. Casillas also and she is not coughing as much. Her heparin has been discontinued, but her white count has increased, and steroids have been decreasing. She has no urinary symptoms now. Denies any diarrhea. Denies any leg pain and she is being treated for pulmonary embolism. MEDICATIONS: Include albuterol, Coreg, digoxin, insulin, oxycodone, prednisone, Protonix, Phenergan, Crestor, Advair, and she is on Tygacil and warfarin at this time. She also has a Port-A-Cath which they are using with a needle to draw blood. PHYSICAL EXAMINATION: VITAL SIGNS: T-max is 97.5, heart rate is 101 today, blood pressure 152/83, respirations are 19. GENERAL: She appears to be in no acute respiratory distress. HEENT: Head is atraumatic, normocephalic. NECK: Supple. Has a Port-A-Cath with needle. LUNGS: Clear at this time. No crackles or rales heard. No rhonchi. HEART: S1, S2 regular. ABDOMEN: Soft, nontender, no guarding, no rigidity present. EXTREMITIES: No edema, clubbing or cyanosis. LABORATORY DATA: White count remains 22.4, hemoglobin 11.9, hematocrit 37.4, platelet count is 350, potassium is 5, chloride 104, CO2 is 20, BUN is 72 and creatinine is 2.1. Micro schumacher her urine cultu re came out negative now. She received treatment 06/13, so white count, I am not sure is either from the lung cancer, urine cultu re is negative. She has no diarrhea. She has no abdominal pain, but if it continues to rise, then I will have to repeat the septic workup again and get CAT scans again and look into other etiologies. Bryan Mullen MD cc: [id number] TT: 06/18/2016 18:06:04 Confirmation # [id number] Dictation # [id number] jn
[2016-06-18] MEDS: (Lantus) Insulin Glargine, Recombinant SC SCH ×2 (22:14→22:29)
--- NOTE | 2016-06-18 22:28 | CP.PCM.PN ---
Subjective - Date & Time of Evaluation Date of Evaluation: 06/18/16 Time of Evaluation: 22:22 - Subjective Subjective: uncontrolled IDDM Objective - Vital Signs/Intake and Output Vital Signs (last 24 hours): Temp Pulse Resp BP Pulse Ox 98 F 67 20 133/72 96 06/18/16 16:00 06/18/16 16:00 06/18/16 16:00 06/18/16 16:00 06/18/16 16:00 Intake and Output: 06/18/16 06/19/16 18:59 06:59 Intake Total 804.4 Output Total 400 Balance 804.4 -400 - Medications Medications: Current Medications Acetaminophen (Tylenol 325mg Tab) 650 mg PO Q6 PRN PRN Reason: Fever >100.4 F Last Admin: 06/18/16 17:40 Dose: 650 mg Albuterol/Ipratropium (Duoneb 3 Mg/0.5 Mg (3 Ml) Ud) 3 ml INH RQ6 [facility] Last Admin: 06/18/16 19:43 Dose: 3 ml Carvedilol (Coreg) 3.125 mg PO BID [facility] Last Admin: 06/18/16 17:39 Dose: 3.125 mg Digoxin (Lanoxin) 0.125 mg PO DAILY@1800 [facility] Last Admin: 06/18/16 17:39 Dose: 0.125 mg Tigecycline 50 mg/ Dextrose 100 mls @ 100 mls/hr IV Q12H [facility] Last Admin: 06/18/16 17:38 Dose: 100 mls/hr Insulin Glargine (Lantus) 20 unit SC [facility] Last Admin: 06/16/16 21:22 Dose: 20 units Insulin Human Regular (Novolin R) 0 unit SC ACHS [facility] PRN Reason: Protocol Last Admin: 06/18/16 22:21 Dose: Not Given Insulin Human Regular (Novolin R) 6 unit SC TIDPC [facility] Last Admin: 06/18/16 17:57 Dose: Not Given Montelukast Sodium (Singulair) 10 mg PO [facility] Last Admin: 06/18/16 22:14 Dose: 10 mg Oxycodone/Acetaminophen (Percocet 5/325 Mg Tab) 1 tab PO Q6H PRN PRN Reason: Pain, moderate (4-7) Stop: 06/20/16 09:46 Pantoprazole Sodium (Protonix Ec Tab) 40 mg PO DAILY [facility] Last Admin: 06/18/16 10:51 Dose: 40 mg Prednisone (Prednisone Tab) 10 mg PO DAILY [facility] Promethazine HCl/Dextromethorphan (Phenergan Dm Syrup) 5 ml PO TID [facility] Last Admin: 06/18/16 17:57 Dose: Not Given Rosuvastatin Calcium (Crestor) 10 mg PO QPM [facility] Last Admin: 06/18/16 22:14 Dose: 10 mg Fluticasone/Salmeterol (Advair Diskus 250/50) 1 puff INH RQ12 [facility] Last Admin: 06/18/16 19:45 Dose: 1 puff - Labs Labs: 06/18/16 07:47 06/18/16 07:20 PT 21.3 SECONDS (9.7-12.2) H 06/18/16 07:47 INR 1.9 06/18/16 07:47 APTT 61 SECONDS (21-34) H 06/18/16 07:47 Assessment and Plan (1) Uncontrolled diabetes mellitus with diabetic nephropathy Assessment & Plan: (1) Uncontrolled diabetes mellitus with diabetic nephropathy Assessment & Plan: Assessment & Plan: Endocrine consult reason for consult: uncontrolled diabetes pt. is 70 y/o admitted for sob & tachycardia , with pulmonary embolism & COPD excerbation , glucose > 600 on admission as per pt. has DM x 17 years (-) neuropathy , (-) retinopathy , (+) nephropathy blood glucose log :@ 6am 44-58 s/p hypoglycemia protocol , up to 100, as per nurse in charge , asymptomatic, last glucose 200 , now on prednisone 10 mg po qd Allergy NKDA Past medical history :HTN , HYPERLIPIDEMIA , LUNG cancer , COPD Past surgical history : right lung lopectomy & Left eye catract Psychiatry history : denies Social history : ex-smoking , ex-ETOH use , denies illicit drug use Family history : irrelevant ROS: Constitutional: denies fever ,tiredness/weakness .HEENT: denies earache, change in voice .Respiratory: denies cough, sob . CVS :no chest pain, no palpitations . Abdomen : no abdominal pain, no nausea /vomiting , no change bowel movement . HOME EXTENSION AGENT : denies light-headedness, dizziness. Extremities : no edema , no tremors . Skin: no itching, no rash Physical exam Well developed AAO x3 , ,NAD VSS HEENT: norm cephalic, atraumatic , no lid lag , no exophthalmos NECK: supple, no palpable lymphadenopathy THYROID: no palpable thyromegaly , not tender CHEST: fair air entry, bilateral, CVS: S1,S2 ABDOMEN: bowel sound present, benign, obese, no wide purple striae , no bruises EXTREMITIES: no edema, clubbing or cyanosis, no palpable hand tremors Skin : acanthosis nigricans lab: a1c 7 , tsh 1.15 a1c is pending , cr 2 , NT-probntp 6700, d-dimer 3558, urinr 3+ glucose Assessment uncontrolled DM steroids induced hyperglycemia lung cancer/COPD pulmonary embolism obesity plan - decrease lantus 17 units @ 9pm daily - decrease novolin R 4 units tid with meals if eat > 60% of the meal -continue Novolin R low dose coverage plan communicated with nurse in charge , also to call if glucose less than 80 . will f/u Status: Acute (2) Steroid-induced hyperglycemia Status: Acute (3) Lung cancer Status: Acute (4) Pulmonary embolism Status: Acute
[2016-06-18] MEDS ORDERED: (Lantus) Insulin Glargine, Recombinant SC SCH (22:45)
[2016-06-19] MEDS: Albuterol-Ipratrop 3 mg / 0.5 (3 ml) UD INH SCH ×4 (01:20→20:09)
[2016-06-19] MEDS: Tigecycline 50 MG in Dextrose 5% In Water 100 ML IV SCH ×2 (03:21→16:04)
[2016-06-19 07:01] LABS: POTASSIUM 5.4 mmol/L (3.6-5.2)
[2016-06-19 07:12] LABS: BASO % 0.2 % (0.0-2.0); EOS % 0.1 % (0.0-4.0); HEMATOCRIT 35.8 % (34.0-47.0); LYMPH % 5.2 % (20.0-40.0); MEAN CELL VOLUME 86.5 fL (81.0-99.0); MEAN CORPUSCULAR HEMOGLOBIN 27.6 pg (27.0-31.0); MEAN CORPUSCULAR HGB CONC 31.9 g/dL (33.0-37.0); MEAN PLATELET VOLUME 8.4 fL (7.2-11.7); MONO # 1.9 K/uL (0.0-0.8); MONO % 10.3 % (0.0-10.0); NRBC % 0.2 % (0.0-2.0); PLATELET COUNT 340 K/uL (130-400); RED CELL DISTRIBUTION WIDTH 15.8 % (11.5-14.5); WHITE BLOOD COUNT 18.4 K/uL (4.8-10.8)
[2016-06-19 07:13] LABS: INR 2.1
--- NOTE | 2016-06-19 07:28 | PN ---
DATE: 06/18/2016 SUBJECTIVE: Today, the patient is more alert and awake and less shortness of breath with decreasing cough with chest pain. PHYSICAL EXAMINATION: VITAL SIGNS: Blood pressure 152/83, pulse 81, respirations 19, temperature 97.5. NECK: Supple. No JVD. LUNGS: Bibasilar rales at the bases. HEART: Regular rate and rhythm. Positive murmur. ABDOMEN: Soft, nontender. Hydronephrosis bilaterally. EXTREMITIES: No leg edema. LABORATORY DATA: Blood tests done today showed WBC 20.4, hemoglobin 11.9, hematocrit 37.4 and platel ets . Chemistry: Sodium 137, potassium 5, chloride 104, bicarbonate 20, BUN 72. Creatinine 2. 1. Glucose was 27, but now glucose is 138. Coag: PT is 21.9, and INR is 1.9. PLAN: So, the plan is that we are going to stop the , continue the oxygen, continue the a nd also the Solu-Medrol will be discontinued. The patient will be put on 10 mg . The kati e was discussed and reviewed with , the nurse practitioner. Isak Mark MD cc: [id number] TT: 06/18/2016 15:16:36 Confirmation # [id number] Dictation # [id number] dn 06/19/2016 06:27:53
[2016-06-19] MEDS: Fluticasone-Salmeterol 250-50mcg Diskus INH SCH ×2 (07:41→20:09)
[2016-06-19] MEDS ORDERED: Sod Polystyrene Sulf 15 gm/60 ml Oral Susp PO ONE ×2 (08:00→13:27)
[2016-06-19] MEDS: (Novolin R) Insulin Human Regular 100 units/ml vial SC SCH ×7 (08:16→21:52)
[2016-06-19 08:22] LABS: NEUTROPHIL 81 % (50-75); REACTIVE LYMPHOCYTES 1 % (0-0); TOTAL CELLS COUNTED 100
[2016-06-19] MEDS: Promethazine DM 6.25 mg-15 mg/5 ml Syrup PO SCH ×3 (11:31→18:40)
[2016-06-19] MEDS: Pantoprazole 40 mg EC Tab PO SCH (11:31)
--- NOTE | 2016-06-19 14:00 | PN ---
DATE: 06/19/2016 The patient is experiencing mild shortness of breath and productive cough. No hemoptysis and no epis taxis. PHYSICAL EXAMINATION: VITAL SIGNS: Blood pressure 132/78, heart rate 114, temperature 97.8, respirations 20. HEENT: Normocephalic. NECK: No JVD. CHEST: Bibasilar rhonchi. HEART: S1, S2 regular. EXTREMITIES: No edema. LABORATORIES: CBC: WBC 18.4, hemoglobin 11.4, hematocrit 35.8, platelet count 340,000. Today's SMA -7: Sodium 139, potassium 5.4, chloride 97, CO2 29 and glucose 63, BUN 73, creatinine 2.1. INR is 2 .1. ASSESSMENT: 1. Recurrent lung carcinoma. 2. Consider pulmonary embolism. 3. Hypertension. 4. Chronic renal insufficiency. 5. Hyperkalemia. RECOMMENDATIONS: Continue Coreg at 3.125 mg twice a day, digoxin 0.125 mg once a day, prednisone at 10 mg once a day. I will administer Coumadin 5 mg p.o. today and Kayexalate 15 grams p.o. today. Fo llow up BMP and INR in a.m. Parrish Bailey MD cc: [id number] TT: 06/19/2016 14:00:20 Confirmation # [id number] Dictation # [id number]
--- NOTE | 2016-06-19 14:23 | CP.PCM.PN ---
Subjective - Date & Time of Evaluation Date of Evaluation: 06/19/16 Time of Evaluation: 14:20 - Subjective Subjective: PT ALERT, FEELS WEAK., LESS COUGH., LESS PAIN., ROS ; OTHERWISE NEG Objective - Vital Signs/Intake and Output Vital Signs (last 24 hours): Temp Pulse Resp BP Pulse Ox 97.8 F 114 H 20 132/78 99 06/19/16 08:00 06/19/16 08:00 06/19/16 08:00 06/19/16 08:00 06/19/16 08:00 Intake and Output: 06/19/16 06/19/16 06:59 18:59 Output Total 400 Balance -400 - Medications Medications: Current Medications Acetaminophen (Tylenol 325mg Tab) 650 mg PO Q6 PRN PRN Reason: Fever >100.4 F Last Admin: 06/18/16 17:40 Dose: 650 mg Albuterol/Ipratropium (Duoneb 3 Mg/0.5 Mg (3 Ml) Ud) 3 ml INH RQ6 [facility] Last Admin: 06/19/16 13:04 Dose: 3 ml Carvedilol (Coreg) 3.125 mg PO BID [facility] Last Admin: 06/19/16 11:32 Dose: 3.125 mg Digoxin (Lanoxin) 0.125 mg PO DAILY@1800 [facility] Last Admin: 06/18/16 17:39 Dose: 0.125 mg Tigecycline 50 mg/ Dextrose 100 mls @ 100 mls/hr IV Q12H [facility] Last Admin: 06/19/16 03:21 Dose: 100 mls/hr Insulin Glargine (Lantus) 17 unit SC [facility] Last Admin: 06/18/16 22:43 Dose: 17 unit Insulin Human Regular (Novolin R) 0 unit SC ACHS [facility] PRN Reason: Protocol Last Admin: 06/19/16 12:56 Dose: 2 unit Insulin Human Regular (Novolin R) 4 unit SC TIDPC [facility] Last Admin: 06/19/16 12:57 Dose: 4 unit Montelukast Sodium (Singulair) 10 mg PO [facility] Last Admin: 06/18/16 22:14 Dose: 10 mg Oxycodone/Acetaminophen (Percocet 5/325 Mg Tab) 1 tab PO Q6H PRN PRN Reason: Pain, moderate (4-7) Stop: 06/20/16 09:46 Pantoprazole Sodium (Protonix Ec Tab) 40 mg PO DAILY [facility] Last Admin: 06/19/16 11:31 Dose: 40 mg Prednisone (Prednisone Tab) 10 mg PO DAILY [facility] Last Admin: 06/19/16 11:32 Dose: 10 mg Promethazine HCl/Dextromethorphan (Phenergan Dm Syrup) 5 ml PO TID [facility] Last Admin: 06/19/16 11:31 Dose: 5 ml Rosuvastatin Calcium (Crestor) 10 mg PO QPM [facility] Last Admin: 06/18/16 22:14 Dose: 10 mg Fluticasone/Salmeterol (Advair Diskus 250/50) 1 puff INH RQ12 [facility] Last Admin: 06/19/16 07:41 Dose: 1 puff Warfarin Sodium (Coumadin) 5 mg PO 1800 [facility] Stop: 06/19/16 18:01 - Labs Labs: 06/19/16 06:30 06/19/16 06:30 PT 24.0 SECONDS (9.7-12.2) H 06/19/16 06:30 INR 2.1 06/19/16 06:30 APTT 61 SECONDS (21-34) H 06/18/16 07:47 - Constitutional Appears: Chronically Ill - Head Exam Head Exam: ATRAUMATIC, NORMOCEPHALIC - Eye Exam Eye Exam: EOMI, Normal appearance - ENT Exam ENT Exam: Mucous Membranes Moist - Neck Exam Neck Exam: absent: Tenderness, Thyromegaly - Respiratory Exam Respiratory Exam: Decreased Breath Sounds. absent: Wheezes - Cardiovascular Exam Cardiovascular Exam: Tachycardia, +S1, +S2 - GI/Abdominal Exam GI & Abdominal Exam: Soft. absent: Tenderness - Rectal Exam Rectal Exam: Deferred - Extremities Exam Extremities Exam: absent: Calf Tenderness, Pedal Edema, Tenderness - Back Exam Back Exam: absent: CVA tenderness (L), CVA tenderness (R) - Neurological Exam Neurological Exam: Alert, Awake, CN II-XII Intact, Oriented x3 - Psychiatric Exam Psychiatric exam: Normal Affect - Skin Skin Exam: absent: Rash Assessment and Plan (1) Lung cancer Status: Acute (2) SVT (supraventricular tachycardia) Status: Acute (3) Tachycardia Status: Acute (4) Uncontrolled diabetes mellitus with diabetic nephropathy Status: Acute (5) CAD (coronary artery disease) Status: Acute (6) CKD (chronic kidney disease) Status: Acute (7) COPD exacerbation Status: Acute (8) Diabetes Status: Acute (9) Hypertension Status: Acute (10) Pulmonary embolism Status: Acute (11) Respiratory failure with hypoxia Status: Acute - Assessment and Plan (Free Text) Assessment: RESP STATUS IMPROVING., ON STEROID TAPER., CONT NEB BD., MONITOR O2 SAT. AFEBRILE ON AB., F/U CULT., CXR REVIEWED., ON COUMADIN, MONITOR INR. CONT GLUCOSE BETTER., ENCOURAGE PT, OOB., PROG POOR. DISCUSSED WITH STAFF.
--- NOTE | 2016-06-19 15:54 | CP.PCM.PN ---
Subjective - Date & Time of Evaluation Date of Evaluation: 06/19/16 Time of Evaluation: 03:30 - Subjective Subjective: dictated Objective - Vital Signs/Intake and Output Vital Signs (last 24 hours): Temp Pulse Resp BP Pulse Ox 97.8 F 114 H 20 132/78 99 06/19/16 08:00 06/19/16 08:00 06/19/16 08:00 06/19/16 08:00 06/19/16 08:00 Intake and Output: 06/19/16 06/19/16 06:59 18:59 Output Total 400 Balance -400 - Medications Medications: Current Medications Acetaminophen (Tylenol 325mg Tab) 650 mg PO Q6 PRN PRN Reason: Fever >100.4 F Last Admin: 06/18/16 17:40 Dose: 650 mg Albuterol/Ipratropium (Duoneb 3 Mg/0.5 Mg (3 Ml) Ud) 3 ml INH RQ6 [facility] Last Admin: 06/19/16 13:04 Dose: 3 ml Carvedilol (Coreg) 3.125 mg PO BID [facility] Last Admin: 06/19/16 11:32 Dose: 3.125 mg Digoxin (Lanoxin) 0.125 mg PO DAILY@1800 [facility] Last Admin: 06/18/16 17:39 Dose: 0.125 mg Tigecycline 50 mg/ Dextrose 100 mls @ 100 mls/hr IV Q12H [facility] Last Admin: 06/19/16 03:21 Dose: 100 mls/hr Insulin Glargine (Lantus) 17 unit SC [facility] Last Admin: 06/18/16 22:43 Dose: 17 unit Insulin Human Regular (Novolin R) 0 unit SC ACHS [facility] PRN Reason: Protocol Last Admin: 06/19/16 12:56 Dose: 2 unit Insulin Human Regular (Novolin R) 4 unit SC TIDPC [facility] Last Admin: 06/19/16 12:57 Dose: 4 unit Montelukast Sodium (Singulair) 10 mg PO HS [facility] Last Admin: 06/18/16 22:14 Dose: 10 mg Oxycodone/Acetaminophen (Percocet 5/325 Mg Tab) 1 tab PO Q6H PRN PRN Reason: Pain, moderate (4-7) Stop: 06/20/16 09:46 Pantoprazole Sodium (Protonix Ec Tab) 40 mg PO DAILY [facility] Last Admin: 06/19/16 11:31 Dose: 40 mg Prednisone (Prednisone Tab) 10 mg PO DAILY [facility] Last Admin: 06/19/16 11:32 Dose: 10 mg Promethazine HCl/Dextromethorphan (Phenergan Dm Syrup) 5 ml PO TID [facility] Last Admin: 06/19/16 14:46 Dose: Not Given Rosuvastatin Calcium (Crestor) 10 mg PO QPM [facility] Last Admin: 06/18/16 22:14 Dose: 10 mg Fluticasone/Salmeterol (Advair Diskus 250/50) 1 puff INH RQ12 [facility] Last Admin: 06/19/16 07:41 Dose: 1 puff Warfarin Sodium (Coumadin) 5 mg PO 1800 [facility] Stop: 06/19/16 18:01 - Labs Labs: 06/19/16 06:30 06/19/16 14:15 PT 24.0 SECONDS (9.7-12.2) H 06/19/16 06:30 INR 2.1 06/19/16 06:30 APTT 61 SECONDS (21-34) H 06/18/16 07:47
--- NOTE | 2016-06-19 16:42 | CP.PCM.PN ---
Subjective - Date & Time of Evaluation Date of Evaluation: 06/19/16 Time of Evaluation: 11:00 - Subjective Subjective: Pt seen an d examined today states feels better, sob better, dyspnea on exertion , denies any chest pain , dysuria , abdominal pain No overnight events recorded on monitor INR - therapeutic - 2.1 repeat urine culture- Negative Objective - Vital Signs/Intake and Output Vital Signs (last 24 hours): Temp Pulse Resp BP Pulse Ox 97.8 F 104 H 20 132/78 99 06/19/16 08:00 06/19/16 08:00 06/19/16 08:00 06/19/16 08:00 06/19/16 08:00 Intake and Output: 06/19/16 06/19/16 06:59 18:59 Intake Total 100 Output Total 400 Balance -400 100 - Medications Medications: Current Medications Acetaminophen (Tylenol 325mg Tab) 650 mg PO Q6 PRN PRN Reason: Fever >100.4 F Last Admin: 06/18/16 17:40 Dose: 650 mg Albuterol/Ipratropium (Duoneb 3 Mg/0.5 Mg (3 Ml) Ud) 3 ml INH RQ6 [facility] Last Admin: 06/19/16 13:04 Dose: 3 ml Carvedilol (Coreg) 3.125 mg PO BID [facility] Last Admin: 06/19/16 11:32 Dose: 3.125 mg Digoxin (Lanoxin) 0.125 mg PO DAILY@1800 [facility] Last Admin: 06/18/16 17:39 Dose: 0.125 mg Tigecycline 50 mg/ Dextrose 100 mls @ 100 mls/hr IV Q12H [facility] Last Admin: 06/19/16 16:04 Dose: 100 mls/hr Insulin Glargine (Lantus) 17 unit SC HS [facility] Last Admin: 06/18/16 22:43 Dose: 17 unit Insulin Human Regular (Novolin R) 0 unit SC ACHS [facility] PRN Reason: Protocol Last Admin: 06/19/16 12:56 Dose: 2 unit Insulin Human Regular (Novolin R) 4 unit SC TIDPC [facility] Last Admin: 06/19/16 12:57 Dose: 4 unit Montelukast Sodium (Singulair) 10 mg PO [facility] Last Admin: 06/18/16 22:14 Dose: 10 mg Oxycodone/Acetaminophen (Percocet 5/325 Mg Tab) 1 tab PO Q6H PRN PRN Reason: Pain, moderate (4-7) Stop: 06/20/16 09:46 Pantoprazole Sodium (Protonix Ec Tab) 40 mg PO DAILY [facility] Last Admin: 06/19/16 11:31 Dose: 40 mg Prednisone (Prednisone Tab) 10 mg PO DAILY [facility] Last Admin: 06/19/16 11:32 Dose: 10 mg Promethazine HCl/Dextromethorphan (Phenergan Dm Syrup) 5 ml PO TID [facility] Last Admin: 06/19/16 14:46 Dose: Not Given Rosuvastatin Calcium (Crestor) 10 mg PO QPM [facility] Last Admin: 06/18/16 22:14 Dose: 10 mg Fluticasone/Salmeterol (Advair Diskus 250/50) 1 puff INH RQ12 [facility] Last Admin: 06/19/16 07:41 Dose: 1 puff Warfarin Sodium (Coumadin) 5 mg PO 1800 [facility] Stop: 06/19/16 18:01 - Labs Labs: 06/19/16 06:30 06/19/16 14:15 PT 24.0 SECONDS (9.7-12.2) H 06/19/16 06:30 INR 2.1 06/19/16 06:30 APTT 61 SECONDS (21-34) H 06/18/16 07:47 - Constitutional Appears: Well, Non-toxic, No Acute Distress - Head Exam Head Exam: ATRAUMATIC, NORMAL INSPECTION, NORMOCEPHALIC - Respiratory Exam Respiratory Exam: Rhonchi, NORMAL BREATHING PATTERN - Cardiovascular Exam Cardiovascular Exam: REGULAR RHYTHM, +S1, +S2 Assessment and Plan - Assessment and Plan (Free Text) Assessment: A/P 70 yr old female with PMHX of lung ca, HTN, IDDM , admitted for PE/ sob INR- therapeutic- 2.1 today urine culture - VRE - treated with tygacil and repeat urine culture - negative wbc- trending down- could be secondary to steroids? improved after tapering steroids Procalcitonin level- <0.05 K- today - 5.3 kayoxalate given and repeat K -5 D/W Dr. Wiggins, cleared for discharge today from ID standpoint with 5 days of zyvox D/w With Dr. Diaz . Nick regarding hypoglycemia in am , recommends to discharge home with 15 units of lantus and f/u with her office next week D/W Dr. Mark, stable for discharge home today and f/u with Dr. Mark office on Wednesday for repeat blood work Oxygen arranged by and portable o2 tank at bedside for transportation and o2 tank delivered by company at home for use Discharge plan discussed with patient and family who is at bedside in details regarding f/u visit with Dr. Mark, Dr. Corona and Dr. Diaz . and medications, who understands and agrees with plan . all questions and concerns were addressed RX e prescribed to pharmacy and verified and pt instructed to continuous pickling line pickler medication from pharmacy pt instructed to returns to ED if symptoms get worse or any concerning symptoms develops
[2016-06-19] MEDS: Digoxin 125 mcg (0.125 mg) Tab PO SCH (18:00)
[2016-06-19 18:02] VITALS: PULSE 109
--- NOTE | 2016-06-19 20:29 | PN ---
DATE: 06/19/2016 SUBJECTIVE: The patient is afebrile. She was having less shortness of breath. The Port-A-Cath is f unctioning. Her heart rate remains tachycardia. She is tachycardic. The family, kids, were at the bedside. PHYSICAL EXAMINATION: HEENT: Head is atraumatic, normocephalic. NECK: Supple. LUNGS: Clear. No crackles or rales present. HEART: S1, S2 regular. ABDOMEN: Soft, nontender, no guarding, no rigidity present. EXTREMITIES: No edema, clubbing, or cyanosis. LABORATORY DATA: White count today was 18.40, decreased. The procalcitonin level was also low, show ing that it was less than 0.05. There is no acute bacterial infection going on, C. diff infection. BUN is 73, creatinine is 2.1. She received Tygacil and she was going to receive another Tygacil dose today and then we are hoping, if we all agree, that she could go on Zyvox, but she did not and the p divine will be discussed with Dr. Mark, who will follow. Bryan Mullen MD cc: [id number] TT: 06/19/2016 20:28:59 Confirmation # [id number] Dictation # [id number]
--- NOTE | 2016-06-19 21:43 | CP.PCM.PN ---
Subjective - Date & Time of Evaluation Date of Evaluation: 06/19/16 Time of Evaluation: 21:36 - Subjective Subjective: uncontrolled dm Objective - Vital Signs/Intake and Output Vital Signs (last 24 hours): Temp Pulse Resp BP Pulse Ox 98.3 F 105 H 20 130/66 95 06/19/16 16:15 06/19/16 17:25 06/19/16 16:15 06/19/16 16:15 06/19/16 16:15 Intake and Output: 06/19/16 06/20/16 18:59 06:59 Intake Total 100 Balance 100 - Medications Medications: Current Medications Acetaminophen (Tylenol 325mg Tab) 650 mg PO Q6 PRN PRN Reason: Fever >100.4 F Last Admin: 06/18/16 17:40 Dose: 650 mg Albuterol/Ipratropium (Duoneb 3 Mg/0.5 Mg (3 Ml) Ud) 3 ml INH RQ6 [facility] Last Admin: 06/19/16 20:09 Dose: 3 ml Carvedilol (Coreg) 3.125 mg PO BID [facility] Last Admin: 06/19/16 17:59 Dose: 3.125 mg Digoxin (Lanoxin) 0.125 mg PO DAILY@1800 [facility] Last Admin: 06/19/16 18:00 Dose: 0.125 mg Tigecycline 50 mg/ Dextrose 100 mls @ 100 mls/hr IV Q12H [facility] Last Admin: 06/19/16 16:04 Dose: 100 mls/hr Insulin Glargine (Lantus) 10 unit SC HS [facility] Insulin Human Regular (Novolin R) 0 unit SC ACHS [facility] PRN Reason: Protocol Last Admin: 06/19/16 18:39 Dose: 1 unit Insulin Human Regular (Novolin R) 4 unit SC TIDPC [facility] Last Admin: 06/19/16 18:40 Dose: 4 unit Montelukast Sodium (Singulair) 10 mg PO HS [facility] Last Admin: 06/19/16 21:28 Dose: 10 mg Oxycodone/Acetaminophen (Percocet 5/325 Mg Tab) 1 tab PO Q6H PRN PRN Reason: Pain, moderate (4-7) Stop: 06/20/16 09:46 Pantoprazole Sodium (Protonix Ec Tab) 40 mg PO DAILY [facility] Last Admin: 06/19/16 11:31 Dose: 40 mg Prednisone (Prednisone Tab) 10 mg PO DAILY [facility] Last Admin: 06/19/16 11:32 Dose: 10 mg Promethazine HCl/Dextromethorphan (Phenergan Dm Syrup) 5 ml PO TID [facility] Last Admin: 06/19/16 18:40 Dose: Not Given Rosuvastatin Calcium (Crestor) 10 mg PO 2200 [facility] Last Admin: 06/19/16 21:28 Dose: 10 mg Fluticasone/Salmeterol (Advair Diskus 250/50) 1 puff INH RQ12 [facility] Last Admin: 06/19/16 20:09 Dose: 1 puff - Labs Labs: 06/19/16 06:30 06/19/16 14:15 PT 24.0 SECONDS (9.7-12.2) H 06/19/16 06:30 INR 2.1 06/19/16 06:30 APTT 61 SECONDS (21-34) H 06/18/16 07:47 Assessment and Plan (1) Uncontrolled diabetes mellitus with diabetic nephropathy Assessment & Plan: Endocrine consult f/u reason for consult: uncontrolled diabetes pt. is 70 y/o admitted for sob & tachycardia , with pulmonary embolism & COPD excerbation , glucose > 600 on admission as per pt. has DM x 17 years (-) neuropathy , (-) retinopathy , (+) nephropathy blood glucose log :@ 6am 48 s/p juice up to 79 , as per nurse in charge , asymptomatic, last glucose 200 , on prednisone 10 mg po qd possible d/c tomorrow Allergy NKDA Past medical history :HTN , HYPERLIPIDEMIA , LUNG cancer , COPD Past surgical history : right lung lopectomy & Left eye catract Psychiatry history : denies Social history : ex-smoking , ex-ETOH use , denies illicit drug use Family history : irrelevant ROS: Constitutional: denies fever ,tiredness/weakness .HEENT: denies earache, change in voice .Respiratory: denies cough, sob . CVS :no chest pain, no palpitations . Abdomen : no abdominal pain, no nausea /vomiting , no change bowel movement . 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 Extremities : no edema , no tremors . Skin: no itching, no rash Physical exam Well developed AAO x3 , ,NAD VSS HEENT: norm cephalic, atraumatic , no lid lag , no exophthalmos NECK: supple, no palpable lymphadenopathy THYROID: no palpable thyromegaly , not tender CHEST: fair air entry, bilateral, CVS: S1,S2 ABDOMEN: bowel sound present, benign, obese, no wide purple striae , no bruises EXTREMITIES: no edema, clubbing or cyanosis, no palpable hand tremors Skin : acanthosis nigricans lab: a1c 7 , tsh 1.15 a1c is pending , cr 2 , NT-probntp 6700, d-dimer 3558, urinr 3+ glucose Assessment hypoglycemia uncontrolled DM steroids induced hyperglycemia lung cancer/COPD pulmonary embolism obesity plan - decrease lantus 10 units @ 9pm daily - continue novolin R 4 units tid with meals if eat > 60% of the meal -continue Novolin R low dose coverage on d/c plan , lantus 10 units @ 9pm & glpizide 5 mg with breakfast f/u with PCP/ endocrine in one week, plan communicated in charge of of the patient will f/u Status: Acute (2) Steroid-induced hyperglycemia Status: Acute (3) Lung cancer Status: Acute (4) Pulmonary embolism Status: Acute
[2016-06-19] MEDS ORDERED: (Lantus) Insulin Glargine, Recombinant SC SCH (22:45)
[2016-06-20 00:55] VITALS: O2SAT 96
[2016-06-20] MEDS: Albuterol-Ipratrop 3 mg / 0.5 (3 ml) UD INH SCH ×3 (01:57→13:50)
[2016-06-20] MEDS: Tigecycline 50 MG in Dextrose 5% In Water 100 ML IV SCH (04:50)
[2016-06-20 07:34] LABS: INR 2.4
[2016-06-20] MEDS: Fluticasone-Salmeterol 250-50mcg Diskus INH SCH (07:46)
[2016-06-20 07:52] VITALS: BP 124/62; PULSE 92; TEMP 97.2
[2016-06-20 08:36] LABS: CALCIUM 7.9 mg/dl (8.6-10.4)
[2016-06-20] MEDS: (Novolin R) Insulin Human Regular 100 units/ml vial SC SCH ×4 (08:50→14:14)
[2016-06-20] MEDS: Pantoprazole 40 mg EC Tab PO SCH (09:19)
[2016-06-20] MEDS: Promethazine DM 6.25 mg-15 mg/5 ml Syrup PO SCH ×2 (09:20→14:14)
--- NOTE | 2016-06-20 11:17 | CP.PCM.PN ---
Subjective - Date & Time of Evaluation Date of Evaluation: 06/20/16 Time of Evaluation: 11:14 - Subjective Subjective: PT ALERT, FEELS BETTER, LESS PAIN., OCC COUGH. ROS; OTHERWISE NEG Objective - Vital Signs/Intake and Output Vital Signs (last 24 hours): Temp Pulse Resp BP Pulse Ox 97.2 F L 92 H 20 124/62 96 06/20/16 07:51 06/20/16 07:51 06/20/16 07:51 06/20/16 07:51 06/20/16 07:51 Intake and Output: 06/20/16 06/20/16 06:59 18:59 Intake Total 600 Balance 600 - Medications Medications: Current Medications Acetaminophen (Tylenol 325mg Tab) 650 mg PO Q6 PRN PRN Reason: Fever >100.4 F Last Admin: 06/18/16 17:40 Dose: 650 mg Albuterol/Ipratropium (Duoneb 3 Mg/0.5 Mg (3 Ml) Ud) 3 ml INH RQ6 [facility] Last Admin: 06/20/16 07:46 Dose: 3 ml Carvedilol (Coreg) 3.125 mg PO BID [facility] Last Admin: 06/20/16 09:19 Dose: 3.125 mg Digoxin (Lanoxin) 0.125 mg PO DAILY@1800 [facility] Last Admin: 06/19/16 18:00 Dose: 0.125 mg Tigecycline 50 mg/ Dextrose 100 mls @ 100 mls/hr IV Q12H [facility] Last Admin: 06/20/16 04:50 Dose: 100 mls/hr Insulin Glargine (Lantus) 10 unit SC [facility] Last Admin: 06/19/16 21:54 Dose: 10 u Insulin Human Regular (Novolin R) 0 unit SC ACHS [facility] PRN Reason: Protocol Last Admin: 06/20/16 08:50 Dose: Not Given Insulin Human Regular (Novolin R) 4 unit SC TIDPC [facility] Last Admin: 06/20/16 08:51 Dose: Not Given Montelukast Sodium (Singulair) 10 mg PO [facility] Last Admin: 06/19/16 21:28 Dose: 10 mg Pantoprazole Sodium (Protonix Ec Tab) 40 mg PO DAILY [facility] Last Admin: 06/20/16 09:19 Dose: 40 mg Prednisone (Prednisone Tab) 10 mg PO DAILY [facility] Last Admin: 06/20/16 09:19 Dose: 10 mg Promethazine HCl/Dextromethorphan (Phenergan Dm Syrup) 5 ml PO TID [facility] Last Admin: 06/20/16 09:20 Dose: 5 ml Rosuvastatin Calcium (Crestor) 10 mg PO 2200 [facility] Last Admin: 06/19/16 21:28 Dose: 10 mg Fluticasone/Salmeterol (Advair Diskus 250/50) 1 puff INH RQ12 [facility] Last Admin: 06/20/16 07:46 Dose: 1 puff - Labs Labs: 06/19/16 06:30 06/20/16 07:21 PT 28.0 SECONDS (9.7-12.2) H 06/20/16 07:21 INR 2.4 06/20/16 07:21 APTT 61 SECONDS (21-34) H 06/18/16 07:47 - Constitutional Appears: Chronically Ill - Head Exam Head Exam: ATRAUMATIC, NORMOCEPHALIC - Eye Exam Eye Exam: EOMI, Normal appearance - ENT Exam ENT Exam: Mucous Membranes Moist - Neck Exam Neck Exam: absent: Tenderness, Thyromegaly - Respiratory Exam Respiratory Exam: Chest Wall Tenderness, Decreased Breath Sounds. absent: Accessory Muscle Use - Cardiovascular Exam Cardiovascular Exam: RRR, +S1, +S2 - GI/Abdominal Exam GI & Abdominal Exam: Soft. absent: Tenderness - Rectal Exam Rectal Exam: Deferred - Extremities Exam Extremities Exam: absent: Calf Tenderness, Pedal Edema - Back Exam Back Exam: absent: CVA tenderness (L), CVA tenderness (R) - Neurological Exam Neurological Exam: Alert, Awake, CN II-XII Intact, Oriented x3 - Psychiatric Exam Psychiatric exam: Normal Affect, Normal Mood - Skin Skin Exam: absent: Rash Assessment and Plan (1) Lung cancer Status: Acute (2) SVT (supraventricular tachycardia) Status: Acute (3) Tachycardia Status: Acute (4) Uncontrolled diabetes mellitus with diabetic nephropathy Status: Acute (5) CAD (coronary artery disease) Status: Acute (6) CKD (chronic kidney disease) Status: Acute (7) COPD exacerbation Status: Acute (8) Diabetes Status: Acute (9) Hypertension Status: Acute (10) Pulmonary embolism Status: Acute (11) Respiratory failure with hypoxia Status: Acute - Assessment and Plan (Free Text) Assessment: RESP STATUS IMPROVING, TOLERATING PO PRED. CONT NEB BD., FOR HOME O2, ARRANGED AT 2L., CONT PULM TOILET., CXR REVIEWED., HR BETTER CONTROLLED., ON COUMADIN, INR THERAPEUTIC. FOR PT., PROG POOR. DISCUSSED WITH STAFF.
--- NOTE | 2016-06-20 16:37 | PN ---
DATE: 06/20/2016 The patient denies any hemoptysis. She has a mild productive cough. PHYSICAL EXAMINATION: VITAL SIGNS: Blood pressure 124/62, heart rate 92, temperature 97.2, respirations 20. HEENT: Normocephalic. NECK: No JVD. CHEST: Right basal rhonchi. HEART: S1, S2 regular. EXTREMITIES: No edema. LABORATORIES: Today's INR is 2.4. PT is 28 . BUN and creatinine and 1.8. Calcium is 7. 9, potassium is 5.0. ASSESSMENT: 1. Recurrent lung carcinoma. 2. Chronic renal insufficiency. 3. Uncontrolled hypertension. 4. Periods of sinus bradycardia. 5. [id number] probability for pulmonary embolus. 6. Diabetes mellitus. RECOMMENDATIONS: Continue Coreg at 3.125 mg twice a day, Crestor 10 mg once a day, Lanoxin 0.125 mg once a day. The patient can be discharged on Coumadin at 5 mg daily with a followup INR early next w [place] at Dr. Mark' office. The patient was instructed to follow that and was given all the warning signs for coagulopathy and was advised to immediately stop Coumadin and present to the [facility] for INR checkup. Parrish Bailey MD cc: [id number] TT: 06/20/2016 16:36:51 Confirmation # [id number] Dictation # [id number]
--- NOTE | 2016-06-20 18:58 | CP.PCM.PN ---
Subjective - Date & Time of Evaluation Date of Evaluation: 06/20/16 Time of Evaluation: 16:00 - Subjective Subjective: clinically same Objective - Vital Signs/Intake and Output Vital Signs (last 24 hours): Temp Pulse Resp BP Pulse Ox 97.2 F L 92 H 20 124/62 96 06/20/16 07:51 06/20/16 07:51 06/20/16 07:51 06/20/16 07:51 06/20/16 07:51 Intake and Output: 06/20/16 06/20/16 06:59 18:59 Intake Total 600 480 Balance 600 480 - Labs Labs: 06/19/16 06:30 06/20/16 07:21 PT 28.0 SECONDS (9.7-12.2) H 06/20/16 07:21 INR 2.4 06/20/16 07:21 APTT 61 SECONDS (21-34) H 06/18/16 07:47 - Constitutional Appears: Well - Head Exam Head Exam: ATRAUMATIC, NORMAL INSPECTION, NORMOCEPHALIC - Eye Exam Eye Exam: EOMI, Normal appearance, PERRL Pupil Exam: NORMAL ACCOMODATION, PERRL - ENT Exam ENT Exam: Mucous Membranes Moist, Normal Exam - Neck Exam Neck Exam: Full ROM, Normal Inspection. absent: Lymphadenopathy - Respiratory Exam Respiratory Exam: Decreased Breath Sounds - Cardiovascular Exam Cardiovascular Exam: REGULAR RHYTHM, +S1, +S2 - GI/Abdominal Exam GI & Abdominal Exam: Soft, Diminished Bowel Sounds - Rectal Exam Rectal Exam: Deferred Assessment and Plan (1) Acute gout of right knee Status: Acute (2) Acute kidney injury Status: Acute (3) Acute renal insufficiency Status: Acute (4) Anemia Status: Acute (5) Asthma exacerbation Status: Acute (6) Bleeding risk due to Coumadin and aspirin Status: Acute (7) CAD (coronary artery disease) Status: Acute (8) CKD (chronic kidney disease) Status: Acute (9) COPD exacerbation Status: Acute (10) Chest pain Status: Acute (11) Chest pain Status: Acute (12) Chronic congestive heart failure Status: Acute (13) Coagulopathy Status: Acute (14) Dehydration Status: Acute (15) Diabetes Status: Acute (16) Drug toxicity Status: Acute (17) Elevated brain natriuretic peptide (BNP) level Status: Acute (18) Epistaxis Status: Acute (19) Exacerbation of asthma Status: Acute (20) Hyperglycemia Status: Acute (21) Hypertension Status: Acute (22) Hypochloremia Status: Acute (23) Hypokalemia Status: Acute (24) Hypokalemia Status: Acute (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 Status: Acute (26) Lung cancer Status: Acute (27) Lung mass Status: Acute (28) NSTEMI (non-ST elevated myocardial infarction) Status: Acute (29) Pancytopenia due to chemotherapy Status: Acute (30) Pneumonia Status: Acute (31) Pulmonary HTN Status: Acute (32) Pulmonary edema Status: Acute (33) Pulmonary embolism Status: Acute (34) Renal failure Status: Acute (35) Renal insufficiency Status: Acute (36) Respiratory distress Status: Acute (37) Respiratory failure with hypoxia Status: Acute (38) Right knee DJD Status: Acute (39) SOB (shortness of breath) Status: Acute (40) SVT (supraventricular tachycardia) Status: Acute (41) Sepsis Status: Acute (42) Sepsis Status: Acute (43) Septic arthritis Status: Acute (44) Steroid-induced hyperglycemia Status: Acute (45) Symptomatic anemia Status: Acute (46) Tachycardia Status: Acute (47) Troponin level elevated Status: Acute (48) Uncontrolled diabetes mellitus with diabetic nephropathy Status: Acute - Assessment and Plan (Free Text) Plan: Patient to be discharged today Follow-up with Dr. mendoza office on Wednesday Follow-up with Dr. Garcia office on wednesday Follow-up with Dr. Diaz office next week Continue medication as prescribed
--- NOTE | 2016-07-07 13:25 | DS ---
The patient is a 70-year-old female with history of CA of the lungs who came to the Emergency Room on 06/11 because the patient was experiencing some shortness of breath and also palpitations, so patient was evaluated in the Emergency Room and was admitted. The patient was found to have also pneumonia and on the physical exam, we had found the patient was very tachycardic and with inspiratory/expirato ry wheezing had rales at the bases. So the patient also was found to have a bilateral hydronephrosis and no edema of the lower extremities. The patient had a consult with Dr. Mullen from ID, Dr. Ganga barbour, pulmonary, Dr. Bailey, hazardous waste management specialist. The patient was put on medications including antibiotic t herapy and also had nebulizer treatment with albuterol and also the patient was on steroids. The pat ient continued to improve, but was somewhat difficult to taper the Solu-Medrol. The patient was foun d to be hypoxemic and we are going to send the patient home on oxygen and Proventil nebulizer. So, omero rodrigues was at the end was Don Wharton was covering and at that point, the day after, yue ent was discharged home on oxygen and will be followed by a home visiting nurse and also will have __ ___ a home health aide. So the patient also discharged on prednisone. Isak Mark MD cc: [id number] TT: 07/07/2016 13:25:12 en
== END 2016-06-20 14:57 | disposition home or self-care (01) | DRG 180 ==
LOC: C.ER 18:21 → C.9E 22:51 → C.6T 06-12 11:11 → C.5T 06-15 22:34
PROVIDERS: ADMIT Specialist; ATTEND Specialist
DX: C78.01 Secondary malignant neoplasm of right lung (principal); I26.99 Other pulmonary embolism without acute cor pulmonale; J96.91 Respiratory failure, unspecified with hypoxia; J18.9 Pneumonia, unspecified organism; E11.21 Type 2 diabetes mellitus with diabetic nephropathy; E11.65 Type 2 diabetes mellitus with hyperglycemia; E11.649 Type 2 diabetes mellitus with hypoglycemia without coma; I47.1 Supraventricular tachycardia; I48.91 Unspecified atrial fibrillation; J44.1 Chronic obstructive pulmonary disease with (acute) exacerbation; N13.30 Unspecified hydronephrosis; I27.2 Other secondary pulmonary hypertension; I12.9 Hypertensive chronic kidney disease with stage 1 through stage 4 chronic kidney disease, or unspecified chronic kidney disease; N18.9 Chronic kidney disease, unspecified; E78.5 Hyperlipidemia, unspecified; I25.10 Atherosclerotic heart disease of native coronary artery without angina pectoris; D64.9 Anemia, unspecified; J45.909 Unspecified asthma, uncomplicated; M17.11 Unilateral primary osteoarthritis, right knee; M10.9 Gout, unspecified; E66.9 Obesity, unspecified; Z95.5 Presence of coronary angioplasty implant and graft; Z85.118 Personal history of other malignant neoplasm of bronchus and lung; Z90.2 Acquired absence of lung [part of]; Z87.01 Personal history of pneumonia (recurrent); I25.2 Old myocardial infarction; Z87.891 Personal history of nicotine dependence; Z79.4 Long term (current) use of insulin; Z87.442 Personal history of urinary calculi

== ENCOUNTER 2016-06-28 09:42 | Inpatient (IN) | payer MEDICARE, OTHER ==
[2016-06-28 09:45] VITALS: BMI 24.2
[2016-06-28] MEDS ORDERED: Albuterol-Ipratrop 3 mg / 0.5 (3 ml) UD ONE ×2 (09:50→10:12)
[2016-06-28] MEDS ORDERED: Albuterol-Ipratrop 3 mg / 0.5 (3 ml) UD INH STA ×3 (10:04→10:05)
[2016-06-28] MEDS ORDERED: Magnesium Sulfate 1 gm in D5W 200 ML IVPB ONE (10:13)
--- NOTE | 2016-06-28 10:18 | RAD ---
HISTORY: dyspnea COMPARISON: Chest x-ray performed 06/15/16 and 06/11/16, CT chest without contrast performed 06/11/16 TECHNIQUE: Chest, one view. FINDINGS: Right-sided MediPort extends expected location of the cavoatrial junction. LUNGS: Right super hilar opacity compatible with mass re-identified. Superior most lung apices excluded from view. Please note that chest x-ray has limited sensitivity for the detection of pulmonary masses. PLEURA: No significant pleural effusion identified. No definite pneumothorax . CARDIOVASCULAR: The cardiomediastinal silhouette appears within normal limits of size. OSSEOUS STRUCTURES: No acute osseous abnormality identified. VISUALIZED UPPER ABDOMEN: Unremarkable. OTHER FINDINGS: None. IMPRESSION: Persistent large right suprahilar opacity compatible with known lung cancer re-identified without significant interval change. Right-sided MediPort.
--- NOTE | 2016-06-28 10:20 | C.PDOC ---
History Of Present Illness Patient BIBA (ALS) for respiratory distress, given 2 neb treatments in the field. As per EMS, patient has h/o lung ALEENA s/p lobectomy. Patient in moderate to severe respiratory distress, unable to provide info. Chief Complaint (Nursing): Respiratory Distress History Per: EMS History/Exam Limitations: clinical condition Onset/Duration Of Symptoms: Unknown Current Respiratory Medications: See Home Med List Severity: Severe Past Medical History Reviewed: Historical Data, Nursing Documentation, Vital Signs Vital Signs: Last Vital Signs Temp 98 F 07/05/16 08:00 Pulse 82 07/05/16 08:00 Resp 18 07/05/16 08:00 BP 151/77 H 07/05/16 08:00 Pulse Ox 97 07/05/16 08:00 - Medical History PMH: Anemia, Arthritis, Asthma, Cardia Arrhythmia, COPD, Diabetes, HTN, Hypercholesterolemia, Kidney Stones (CYSTO/STENT 2009), Malignancy (Lung), Pulmonary Embolism, Chronic Kidney Disease Denies: Sleep Apnea Surgical History: Coronary Stent (2004) Denies: Pacemaker - [facility] Procedures CLOSED [PERCUTANEOUS] [NEEDLE] BIOPSY OF LUNG (12/05/13) CYSTOGRAM NEC (11/28/13) DRAINAGE OF RIGHT KNEE JOINT, PERCUTANEOUS APPROACH, DIAGN (01/29/16) EXCISION OF DESCENDING COLON, ENDO, DIAGN (03/25/16) INFLUENZA VACCINATION (01/31/14) INSERT INTERCOSTAL CATH (12/05/13) OTHER LOBECTOMY OF LUNG (01/31/14) RETROGRADE PYELOGRAM (11/28/13) VACCINATION NEC (12/05/13) Family History: States: No Known Family Hx - Social History Hx Tobacco Use: Yes (former smoker) Hx Alcohol Use: No Hx Substance Use: No - Immunization History Hx Tetanus Toxoid Vaccination: No Hx Influenza Vaccination: No Hx Pneumococcal Vaccination: No Physical Exam - Physical Exam Appears: In Acute Distress (in severe respiratory distress ) Skin: Normal Color, Warm, Dry Head: Normacephalic Oral Mucosa: Moist Chest: Symmetrical Cardiovascular: Rhythm Regular (tachycardic ) Respiratory: Accessory Muscle Use (moderate to severe), No Rales, Rhonchi (B/L) , Wheezing (diffuse expiratory wheezing B/L) Gastrointestinal/Abdominal: Normal Exam, Bowel Sounds, Soft, No Tenderness Extremity: No Pedal Edema, No Calf Tenderness Neurological/Psych: Other (awake, alert) ED Course And Treatment - Laboratory Results Result Diagrams: 07/04/16 05:58 07/04/16 05:58 ECG: Interpreted By Me, Viewed By Me (sinus tachycardia 137 bpm, normal axis, no acute ST/T wave changes) ECG Interpretation: Abnormal O2 Sat by Pulse Oximetry: 100 (RA) Pulse Ox Interpretation: Normal - Radiology CXR: Interpreted by Me, Viewed By Me (right sided lung mass, no obvious infiltrate) Progress Note: Blood work, EKG, CXR ordered and reviewed. Patient placed on Bipap emergently, IV solumedrol and duoneb treatments given. ABG ordered. PO Vitamin K given due to significantly elevated INR. Reevaluation Time: 10:35 Reassessment Condition: Unchanged (Patient without significant improvement, still wheezing diffusely with moderate to severe accessory muscle use. IV magnesium sulfate 2g and SC Terbutaline ordered.) - Physician Consult Information Physician Contacted: Isak Mark Critical Care Time - Critical Care Note Total Time (in mins): 50 Documented critical care: time excludes all time spent performing seperately billable procedures. Medical Decision Making Medical Decision Making: differential diagnoses considered: asthma/copd exacerbation, lung cancer, pleural effusion/malignant effusion, pneumonia, CHF exacerbation, PE, [place]/ACS Disposition - Disposition Disposition: HOSPITALIZED Disposition Time: 11:10 Condition: GUARDED - Clinical Impression Clinical Impression: Exacerbation of asthma, Lung cancer, Respiratory distress, Acute renal insufficiency, Coagulopathy, Elevated brain natriuretic peptide (BNP) level, Troponin level elevated
[2016-06-28 10:26] LABS: BASO % 0.1 % (0.0-2.0); EOS % 0.1 % (0.0-4.0); HEMATOCRIT 37.5 % (34.0-47.0); LYMPH # 0.4 K/uL (1.0-4.3); LYMPH % 1.3 % (20.0-40.0); MEAN CORPUSCULAR HEMOGLOBIN 27.5 pg (27.0-31.0); MEAN CORPUSCULAR HGB CONC 30.2 g/dL (33.0-37.0); MEAN PLATELET VOLUME 9.5 fL (7.2-11.7); MONO # 0.7 K/uL (0.0-0.8); MONO % 2.4 % (0.0-10.0); PLATELET COUNT 194 K/uL (130-400); RED CELL DISTRIBUTION WIDTH 17.1 % (11.5-14.5)
[2016-06-28 10:37] LABS: BILIRUBIN,TOTAL 0.4 mg/dL (0.2-1.3); POTASSIUM 5.7 mmol/L (3.6-5.2)
[2016-06-28 10:38] LABS: CALCIUM 8.9 mg/dl (8.6-10.4)
[2016-06-28 10:51] LABS: INR 9.4
[2016-06-28 10:57] LABS: TROPONIN I 0.99 ng/mL (0.00-0.120)
[2016-06-28 11:03] LABS: ABG ALLEN TEST PO; DRAW SITE RRA
[2016-06-28 11:23] LABS: NEUTROPHIL 91 % (50-75); TOTAL CELLS COUNTED 100
[2016-06-28] MEDS ORDERED: Moxifloxacin IV 400mg/250ml NS 250 ML IV ONE (11:23)
[2016-06-28 11:25] LABS: LARGE PLATELETS PRESENT
[2016-06-28] MEDS ORDERED: Moxifloxacin IV 400mg/250ml NS 250 ML IVPB ONE (11:27)
[2016-06-28 11:34] LABS: INR 8.8
[2016-06-28 12:28] LABS: ABG ALLEN TEST A; ARTERIAL BLOOD HGB O2 SAT 97.3 % (95.0-98.0); CARBOXYHEMOGLOBIN 1.4 % (0.5-1.5); DRAW SITE RRA; HHB 0.2 % (0.0-5.0); METHEMOGLOBIN 1.2 % (0.0-3.0)
[2016-06-28] MEDS: Albuterol-Ipratrop 3 mg / 0.5 (3 ml) UD INH SCH ×2 (13:36→19:53)
[2016-06-28] MEDS: MethylPREDNISolone 40 mg Vial IVP SCH ×2 (14:59→22:13)
[2016-06-28 16:28] LABS: BASO % 0.1 % (0.0-2.0); EOS % 0.1 % (0.0-4.0); HEMATOCRIT 35.7 % (34.0-47.0); LYMPH # 0.1 K/uL (1.0-4.3); LYMPH % 0.6 % (20.0-40.0); MEAN CELL VOLUME 89.9 fL (81.0-99.0); MEAN CORPUSCULAR HEMOGLOBIN 27.4 pg (27.0-31.0); MEAN CORPUSCULAR HGB CONC 30.5 g/dL (33.0-37.0); MEAN PLATELET VOLUME 9.3 fL (7.2-11.7); MONO # 0.3 K/uL (0.0-0.8); MONO % 1.4 % (0.0-10.0); PLATELET COUNT 150 K/uL (130-400); RED CELL DISTRIBUTION WIDTH 16.9 % (11.5-14.5); WHITE BLOOD COUNT 18.5 K/uL (4.8-10.8)
[2016-06-28 16:36] LABS: POTASSIUM 5.4 mmol/L (3.6-5.2)
[2016-06-28 16:39] LABS: ALB/GLOB RATIO 1.1 (1.0-2.1); BILIRUBIN,TOTAL 0.4 mg/dL (0.2-1.3); CALCIUM 8.3 mg/dl (8.6-10.4); TOTAL PROTEIN 6.6 g/dL (6.3-8.3)
[2016-06-28 16:52] LABS: METAMYELOCYTE 1 % (0-0); NEUTROPHIL 90 % (50-75); TOTAL CELLS COUNTED 100
[2016-06-28 16:53] LABS: LARGE PLATELETS PRESENT
--- NOTE | 2016-06-28 17:09 | CP.PCM.CON ---
History of Present Illness - History of Present Illness History of Present Illness: Chief complaint: Shortness of breath History present illness: 70-year-old female with history of anemia arthritis, asthma, cardiac arrhythmias , COPD hypertension, diabetes, hypercholesteremia, kidney stones, lung cancer, pulmonary embolism, renal insufficiency. Patient came to the emergency room with the sudden onset of shortness of breath , and able to breathe, she was not able to speak. Patient was not able to provide any history in the emergency room at the time and she came into the ER. Patient was brought in by the ambulance. Immediately in the emergency room patient was placed on BiPAP, and she was having severe hypoxia in a, also having distress, not able to speak. Somewhat somnolent. After the BiPAP she started slowly improving. Currently patient is awake and responding. Complaining of still having chest tightness, cough, with the mucus production. She is having the symptoms for almost to 3-4 days, the mucus is green car, sometimes a black in color. Some streaks of blood also noted. Patient denies any nausea vomiting. She did not have any fever, but she has a fever this morning Review of Systems - Review of Systems All systems: reviewed and no additional remarkable complaints except Review of Systems: patient is currently awake and responding. But the respiratory distress noted. Currently on BiPAP. Cough is present. Mucus production noted. Leg swelling 1+ noted bilaterally. Patient is on anticoagulation. Past Patient History - Infectious Disease Hx of Infectious Diseases: None - Tetanus Immunizations Tetanus Immunization: Unknown - Past Medical History & Family History Past Medical History?: Yes Pertinent Family History: Past medical history: Arthritis, asthma, COPD, lung cancer, pulmonary embolism on anticoagulation Surgical history: Cardiac stent in the past Also had a lobectomy of the lung in 2013 Allergy no known drug allergy Medications reviewed in - Past Social History Smoking Status: Former Smoker - CARDIAC Hx Cardia Arrhythmia: Yes Hx Hypercholesterolemia: Yes Hx Hypertension: Yes Hx Pacemaker: No - PULMONARY Hx Asthma: Yes Hx Chronic Obstructive Pulmonary Disease (COPD): Yes Hx Lung Cancer: Yes (with lobectomy) Hx Pulmonary Embolism: Yes Hx Sleep Apnea: No - NEUROLOGICAL Hx Neurological Disorder: No Hx Paralysis: No - HEENT Hx HEENT Problems: Yes Hx Epistaxis: Yes - RENAL Hx Chronic Kidney Disease: Yes Hx Kidney Stones: Yes (CYSTO/STENT 2009) - ENDOCRINE/METABOLIC Hx Endocrine Disorders: Yes Hx Diabetes Mellitus Type 2: Yes - HEMATOLOGICAL/ONCOLOGICAL Hx Anemia: Yes - INTEGUMENTARY Hx Dermatological Problems: No - MUSCULOSKELETAL/RHEUMATOLOGICAL Hx Falls: No - GASTROINTESTINAL Hx Gastrointestinal Disorders: Yes Hx Constipation: Yes - GENITOURINARY/GYNECOLOGICAL Hx Genitourinary Disorders: Yes - PSYCHIATRIC Hx Substance Use: No - SURGICAL HISTORY Hx Coronary Stent: Yes (2004) - ANESTHESIA Hx Anesthesia: Yes Hx Anesthesia Reactions: No Hx Malignant Hyperthermia: No Meds Allergies/Adverse Reactions: Allergies Allergy/AdvReac Type Severity Reaction Status Date / Time No Known Allergies Allergy Verified 06/28/16 13:21 - Medications Medications: Current Medications Albuterol/Ipratropium (Duoneb 3 Mg/0.5 Mg (3 Ml) Ud) 3 ml INH RQ6 LIVIER Last Admin: 06/28/16 13:36 Dose: Not Given Moxifloxacin HCl (Avelox Iv 400mg/250ml Ns) 250 mls @ 167 mls/hr IVPB Q24H LIVIER Methylprednisolone (Solu-Medrol) 60 mg IVP Q8 LIVIER Last Admin: 06/28/16 14:59 Dose: 60 mg Montelukast Sodium (Singulair) 10 mg PO HS LIVIER Physical Exam - Head Exam Head Exam: ATRAUMATIC Additional comments: patient is on BiPAP. 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 oriented 3 no Results - Vital Signs Recent Vital Signs: Last Vital Signs Temp 99.0 F 06/28/16 12:45 Pulse 132 H 06/28/16 15:58 Resp 22 06/28/16 15:00 BP 119/77 06/28/16 17:00 Pulse Ox 98 06/28/16 15:00 - Labs Result Diagrams: 06/28/16 16:24 06/28/16 16:24 Labs: Laboratory Results - last 24 hr 06/28/16 06/28/16 06/28/16 11:13 12:25 16:24 WBC 18.5 H RBC 3.97 Hgb 10.9 L Hct 35.7 MCV 89.9 MCH 27.4 MCHC 30.5 L RDW 16.9 H Plt Count 150 MPV 9.3 Neut % (Auto) 97.8 H Lymph % (Auto) 0.6 L [place] % (Auto) 1.4 Eos % (Auto) 0.1 Baso % (Auto) 0.1 Neut # 18.1 H Lymph # 0.1 L [place] # 0.3 Eos # 0.0 Baso # 0.0 Neutrophils % (Manual) 90 H Band Neutrophils % 5 H Lymphocytes % (Manual) 1 L Monocytes % (Manual) 3 Metamyelocytes % 1 H Toxic Granulation Present Platelet Estimate Normal Large Platelets Present Hypochromasia (manual) Slight Poikilocytosis (manual Slight Anisocytosis (manual) Slight Microcytosis (manual) Slight Macrocytosis (manual) Slight Ovalocytes Slight PT 110.4 H* INR 8.8 APTT 66 H D Puncture Site Rra pCO2 53 H pO2 304 H HCO3 19.2 L ABG pH 7.20 L ABG Total CO2 22.3 ABG O2 Saturation 99.8 H ABG Base Excess -7.4 L ABG Hemoglobin 10.5 L ABG Carboxyhemoglobin 1.4 POC ABG HHb (Measured) 0.2 ABG Methemoglobin 1.2 Jasson Test A A-a O2 Difference 129.0 Respiratory Index 0.4 Hgb O2 Saturation 97.3 FiO2 70.0 Inspiratory BiPAP 16 Expiratory BiPAP 6 Sodium 131 L Potassium 5.4 H Chloride 94 L Carbon Dioxide 23 Anion Gap 19 BUN 37 H Creatinine 2.4 H Est GFR ( Amer) 24 Est GFR (Non-Af Amer) 20 Random Glucose 388 H Calcium 8.3 L Total Bilirubin 0.4 AST 41 H ALT 49 Alkaline Phosphatase 160 H Total Creatine Kinase 267 H Total Protein 6.6 Albumin 3.5 Globulin 3.1 Albumin/Globulin Ratio 1.1 Digoxin 2.7 H* - Impressions Impression: chest x-ray showing right upper lungmass lesion noted. Mild congestive changes noted. Otherwise nonspecific Assessment & Plan (1) COPD exacerbation Assessment and Plan: patient possibly has an acute exacerbation of COPD, with the CO2 accommodation. Currently responding with tBiPAP, bronchial dilator, corticosteroids antibiotic. acute bronchitis, associated with the PKU mucus production Tachycardia noted, elevated proBNP, mild a positive troponin noted. Underlying non-ST elevation cannot be ruled out. we'll get heart enzymes, cardiology evaluation may be needed. Patient is on antibiotic regulation. INR is highly elevated, coagulopathy noted. Monitor the INR. He received vitamin K and will follow closely Status: Acute (2) Lung cancer Status: Acute (3) Pulmonary embolism Status: Acute
[2016-06-28 19:20] LABS: DRAW SITE RRA
[2016-06-28 21:23] LABS: RBC URINE 54 /hpf (0-3); URINE BACTERIA OCC (<OCC); URINE BILIRUBIN NEGATIVE (NEGATIVE); URINE BLOOD 3+ (NEGATIVE); URINE COLOR Yellow (YELLOW); URINE GLUCOSE (UA) 3+ mg/dL (Normal); URINE KETONE NEGATIVE (NEGATIVE); URINE LEUKOCYTE ESTERASE NEG Leu/uL (Negative); URINE PROTEIN 2+ mg/dL (NEGATIVE); URINE UROBILINOGEN NORMAL mg/dL (0.2-1.0); WBC URINE 1 /hpf (0-5)
[2016-06-28 23:56] LABS: ABG ALLEN TEST POS; ARTERIAL BLOOD HGB O2 SAT 96.9 % (95.0-98.0); CARBOXYHEMOGLOBIN 1.4 % (0.5-1.5); DRAW SITE RR; METHEMOGLOBIN 0.7 % (0.0-3.0)
[2016-06-29] MEDS: (Novolin R) Insulin Human Regular 100 units/ml vial SC SCH ×4 (00:12→18:22)
[2016-06-29] MEDS ORDERED: Midazolam 2 MG/2 ML VIAL IVP PRN (00:37)
[2016-06-29] MEDS ORDERED: Sod Polystyrene Sulf 15 gm/60 ml Oral Susp PO ONE (00:37)
[2016-06-29] MEDS ORDERED: Propofol 10 mg/ml Inj (20 ML) IV ONE (00:37)
--- NOTE | 2016-06-29 00:57 | CP.CCUPN ---
CCU Subjective - Physician Review Events Since Last Encounter (Free Text): 06/29/16 00:53 Patient's repeated ABG 7.23/59, unchanged from previous values. Spoke to the patients, getting a little tired from breathing, still tachycardic at 130 bpm. Agree for elected intubation, her sister, Jannet Fried will be deciding for her while the patient can not. Intubated on first attempt with mac #4 (large tongue) with 100 mg of propofol and 2 mg of versed, no complications during procedure. OG tube inserted and air suctioned, kayexalate will be given for K 5.7 after intubation hr 90 bpm. Called Jannet Fried to inform her. Awaiting x-ray, will get abg CCU Objective - Vital Signs / Intake & Output Vital Signs (Last 4 hours): Vital Signs Pulse Resp Pulse Ox 06/28/16 22:41 132 H 06/28/16 20:55 132 H 36 H 100 Intake and Output (Last 8hrs): Intake & Output 06/28/16 06/28/16 06/29/16 14:59 22:59 06:59 Intake Total 250 50 Output Total 300 Balance 250 -250 Weight 154 lb 5.177 oz Intake: Intake, IV Amount 250 0 Right Port-A-Cath 250 0 Oral 0 50 Output: Urine 300 Urine, Voided 300 Other: Voiding Method Bedpan # Voids Urine, Voided 0 0 # Bowel Movements 0 0 - Medications Active Medications: Active Medications Generic Name Dose Route Start Last Admin Trade Name Freq PRN Reason Stop Dose Admin Albuterol/Ipratropium 3 ml 06/28/16 14:00 06/28/16 19:53 Duoneb 3 Mg/0.5 Mg (3 Ml) Ud INH 3 ml RQ6 LIVIER Administration Moxifloxacin HCl 250 mls @ 167 mls/hr 06/29/16 10:00 Avelox Iv 400mg/250ml Ns IVPB Q24H LIVIER Propofol 100 mls @ 2.1 mls/hr 06/29/16 00:37 Diprivan IV .Q24H PRN TITRATE PER MD ORDER Protocol 5 MCG/KG/MIN Insulin Human Regular 0 unit 06/29/16 00:00 06/29/16 00:12 Novolin R SC 10 unit Q6 LIVIER Administration Protocol Methylprednisolone 60 mg 06/28/16 14:00 06/28/16 22:13 Solu-Medrol IVP 60 mg Q8 LIVIER Administration Montelukast Sodium 10 mg 06/28/16 22:00 06/28/16 22:12 Singulair PO 10 mg HS LIVIER Administration - Patient Studies Lab Studies: Lab Studies 06/29/16 06/29/16 06/28/16 Range/Units 00:12 00:02 23:49 WBC (4.8-10.8) K/uL RBC (3.80-5.20) Mil/uL Hgb (11.0-16.0) g/dL Hct (34.0-47.0) % MCV (81.0-99.0) fL MCH (27.0-31.0) pg MCHC (33.0-37.0) g/dL RDW (11.5-14.5) % Plt Count (130-400) K/uL MPV (7.2-11.7) fL Neut % (Auto) (50.0-75.0) % Lymph % (Auto) (20.0-40.0) % [place] % (Auto) (0.0-10.0) % Eos % (Auto) (0.0-4.0) % Baso % (Auto) (0.0-2.0) % Neut # (1.8-7.0) K/uL Lymph # (1.0-4.3) K/uL [place] # (0.0-0.8) K/uL Eos # (0.0-0.7) K/uL Baso # (0.0-0.2) K/uL Neutrophils % (Manual) (50-75) % Band Neutrophils % (0-2) % Lymphocytes % (Manual) (20-40) % Monocytes % (Manual) (0-10) % Metamyelocytes % (0-0) % Toxic Granulation Platelet Estimate (NORMAL) Large Platelets Hypochromasia (manual) Poikilocytosis (manual Anisocytosis (manual) Microcytosis (manual) Macrocytosis (manual) Ovalocytes PT (9.7-12.2) SECONDS INR APTT (21-34) SECONDS Puncture Site Rr pCO2 59 H (35-45) mm/Hg pO2 116 H (80-100) mm/Hg HCO3 22.3 (21-28) mmol/L ABG pH 7.23 L (7.35-7.45) ABG Total CO2 26.5 (22-28) mmol/L ABG O2 Saturation 99.0 H (95-98) % ABG Base Excess -3.4 L (-2.0-3.0) mmol/L ABG Hemoglobin 10.6 L (11.7-17.4) g/dL ABG Carboxyhemoglobin 1.4 (0.5-1.5) % POC ABG HHb (Measured) 1.0 (0.0-5.0) % ABG Methemoglobin 0.7 (0.0-3.0) % Jasson Test Pos ABG Potassium (3.6-5.2) mmol/L A-a O2 Difference 60.0 mm/Hg Respiratory Index 0.5 Hgb O2 Saturation 96.9 (95.0-98.0) % Sodium (132-148) mmol/l Chloride (98-107) mmol/L Glucose (65-105) mg/dl Lactate (0.7-2.1) mmol/L FiO2 35.0 % Inspiratory BiPAP 14 Expiratory BiPAP 6 Crit Value Called To Crit Value Called By Crit Value Read Back Blood Gas Notified Time Potassium (3.6-5.2) mmol/L Carbon Dioxide (22-30) mmol/L Anion Gap (10-20) BUN (7-17) mg/dL Creatinine (0.7-1.2) MG/DL Est GFR ( Amer) Est GFR (Non-Af Amer) POC Glucose (mg/dL) 489 H* (65-110) mg/dL Random Glucose (65-105) mg/dL Calcium (8.6-10.4) mg/dl Total Bilirubin (0.2-1.3) mg/dL AST (14-36) U/L ALT (9-52) U/L Alkaline Phosphatase (38-126) U/L Total Creatine Kinase 226 H (30-135) U/L CK-MB (Mass) 3.71 H (0.0-3.38) ng/mL Troponin I, Quant (0.00-0.120) ng/mL Total Protein (6.3-8.3) g/dL Albumin (3.5-5.0) g/dL Globulin (2.2-3.9) gm/dL Albumin/Globulin Ratio (1.0-2.1) Arterial Blood Potassium (3.6-5.2) mmol/L Urine Color (YELLOW) Urine Clarity (Clear) Urine pH (5.0-8.0) Ur Specific [place] (1.003-1.030) Urine Protein (NEGATIVE) mg/dL Urine Glucose (UA) (Normal) mg/dL Urine Ketones (NEGATIVE) mg/dL Urine Blood (NEGATIVE) Urine Nitrate (NEGATIVE) Urine Bilirubin (NEGATIVE) Urine Urobilinogen (0.2-1.0) mg/dL Ur Leukocyte Esterase (Negative) Héctor/uL Urine WBC (Auto) (0-5) /hpf Urine RBC (Auto) (0-3) /hpf Ur Squamous Epith Cells (0-5) /hpf Urine Bacteria (<OCC) Digoxin (0.8-2.0) ng/mL 06/28/16 06/28/16 06/28/16 Range/Units 21:11 19:17 16:24 WBC 18.5 H (4.8-10.8) K/uL RBC 3.97 (3.80-5.20) Mil/uL Hgb 10.9 L (11.0-16.0) g/dL Hct 35.7 (34.0-47.0) % MCV 89.9 (81.0-99.0) fL MCH 27.4 (27.0-31.0) pg MCHC 30.5 L (33.0-37.0) g/dL RDW 16.9 H (11.5-14.5) % Plt Count 150 (130-400) K/uL MPV 9.3 (7.2-11.7) fL Neut % (Auto) 97.8 H (50.0-75.0) % Lymph % (Auto) 0.6 L (20.0-40.0) % [place] % (Auto) 1.4 (0.0-10.0) % Eos % (Auto) 0.1 (0.0-4.0) % Baso % (Auto) 0.1 (0.0-2.0) % Neut # 18.1 H (1.8-7.0) K/uL Lymph # 0.1 L (1.0-4.3) K/uL [place] # 0.3 (0.0-0.8) K/uL Eos # 0.0 (0.0-0.7) K/uL Baso # 0.0 (0.0-0.2) K/uL Neutrophils % (Manual) 90 H (50-75) % Band Neutrophils % 5 H (0-2) % Lymphocytes % (Manual) 1 L (20-40) % Monocytes % (Manual) 3 (0-10) % Metamyelocytes % 1 H (0-0) % Toxic Granulation Present Platelet Estimate Normal (NORMAL) Large Platelets Present Hypochromasia (manual) Slight Poikilocytosis (manual Slight Anisocytosis (manual) Slight Microcytosis (manual) Slight Macrocytosis (manual) Slight Ovalocytes Slight PT (9.7-12.2) SECONDS INR APTT (21-34) SECONDS Puncture Site Rra pCO2 58 H (35-45) mm/Hg pO2 104 H (80-100) mm/Hg HCO3 21.7 (21-28) mmol/L ABG pH 7.23 L (7.35-7.45) ABG Total CO2 26.1 (22-28) mmol/L ABG O2 Saturation 98.8 H (95-98) % ABG Base Excess -4.1 L (-2.0-3.0) mmol/L ABG Hemoglobin (11.7-17.4) g/dL ABG Carboxyhemoglobin (0.5-1.5) % POC ABG HHb (Measured) (0.0-5.0) % ABG Methemoglobin (0.0-3.0) % Jasson Test Na ABG Potassium 5.3 H (3.6-5.2) mmol/L A-a O2 Difference 73.0 mm/Hg Respiratory Index 0.7 Hgb O2 Saturation (95.0-98.0) % Sodium 132.0 131 L (132-148) mmol/l Chloride 100.0 94 L (98-107) mmol/L Glucose 414 H* D (65-105) mg/dl Lactate 1.7 (0.7-2.1) mmol/L FiO2 35.0 % Inspiratory BiPAP 14 Expiratory BiPAP 6 Crit Value Called To Mack santana Crit Value Called By Elva Crit Value Read Back Y Blood Gas Notified Time 1919 Potassium 5.4 H (3.6-5.2) mmol/L Carbon Dioxide 23 (22-30) mmol/L Anion Gap 19 (10-20) BUN 37 H (7-17) mg/dL Creatinine 2.4 H (0.7-1.2) MG/DL Est GFR ( Amer) 24 Est GFR (Non-Af Amer) 20 POC Glucose (mg/dL) (65-110) mg/dL Random Glucose 388 H (65-105) mg/dL Calcium 8.3 L (8.6-10.4) mg/dl Total Bilirubin 0.4 (0.2-1.3) mg/dL AST 41 H (14-36) U/L ALT 49 (9-52) U/L Alkaline Phosphatase 160 H (38-126) U/L Total Creatine Kinase 267 H (30-135) U/L CK-MB (Mass) 3.68 H (0.0-3.38) ng/mL Troponin I, Quant 0.9200 H* (0.00-0.120) ng/mL Total Protein 6.6 (6.3-8.3) g/dL Albumin 3.5 (3.5-5.0) g/dL Globulin 3.1 (2.2-3.9) gm/dL Albumin/Globulin Ratio 1.1 (1.0-2.1) Arterial Blood Potassium 5.3 H (3.6-5.2) mmol/L Urine Color Yellow (YELLOW) Urine Clarity Hazy (Clear) Urine pH 5.0 (5.0-8.0) Ur Specific [place] 1.008 (1.003-1.030) Urine Protein 2+ H (NEGATIVE) mg/dL Urine Glucose (UA) 3+ H (Normal) mg/dL Urine Ketones Negative (NEGATIVE) mg/dL Urine Blood 3+ H (NEGATIVE) Urine Nitrate Negative (NEGATIVE) Urine Bilirubin Negative (NEGATIVE) Urine Urobilinogen Normal (0.2-1.0) mg/dL Ur Leukocyte Esterase Neg (Negative) Héctor/uL Urine WBC (Auto) 1 (0-5) /hpf Urine RBC (Auto) 54 H (0-3) /hpf Ur Squamous Epith Cells 1 (0-5) /hpf Urine Bacteria Occ H (<OCC) Digoxin (0.8-2.0) ng/mL 06/28/16 06/28/16 Range/Units 12:25 11:13 WBC (4.8-10.8) K/uL RBC (3.80-5.20) Mil/uL Hgb (11.0-16.0) g/dL Hct (34.0-47.0) % MCV (81.0-99.0) fL MCH (27.0-31.0) pg MCHC (33.0-37.0) g/dL RDW (11.5-14.5) % Plt Count (130-400) K/uL MPV (7.2-11.7) fL Neut % (Auto) (50.0-75.0) % Lymph % (Auto) (20.0-40.0) % [place] % (Auto) (0.0-10.0) % Eos % (Auto) (0.0-4.0) % Baso % (Auto) (0.0-2.0) % Neut # (1.8-7.0) K/uL Lymph # (1.0-4.3) K/uL [place] # (0.0-0.8) K/uL Eos # (0.0-0.7) K/uL Baso # (0.0-0.2) K/uL Neutrophils % (Manual) (50-75) % Band Neutrophils % (0-2) % Lymphocytes % (Manual) (20-40) % Monocytes % (Manual) (0-10) % Metamyelocytes % (0-0) % Toxic Granulation Platelet Estimate (NORMAL) Large Platelets Hypochromasia (manual) Poikilocytosis (manual Anisocytosis (manual) Microcytosis (manual) Macrocytosis (manual) Ovalocytes PT 110.4 H* (9.7-12.2) SECONDS INR 8.8 APTT 66 H D (21-34) SECONDS Puncture Site Rra pCO2 53 H (35-45) mm/Hg pO2 304 H (80-100) mm/Hg HCO3 19.2 L (21-28) mmol/L ABG pH 7.20 L (7.35-7.45) ABG Total CO2 22.3 (22-28) mmol/L ABG O2 Saturation 99.8 H (95-98) % ABG Base Excess -7.4 L (-2.0-3.0) mmol/L ABG Hemoglobin 10.5 L (11.7-17.4) g/dL ABG Carboxyhemoglobin 1.4 (0.5-1.5) % POC ABG HHb (Measured) 0.2 (0.0-5.0) % ABG Methemoglobin 1.2 (0.0-3.0) % Jasson Test A ABG Potassium (3.6-5.2) mmol/L A-a O2 Difference 129.0 mm/Hg Respiratory Index 0.4 Hgb O2 Saturation 97.3 (95.0-98.0) % Sodium (132-148) mmol/l Chloride (98-107) mmol/L Glucose (65-105) mg/dl Lactate (0.7-2.1) mmol/L FiO2 70.0 % Inspiratory BiPAP 16 Expiratory BiPAP 6 Crit Value Called To Crit Value Called By Crit Value Read Back Blood Gas Notified Time Potassium (3.6-5.2) mmol/L Carbon Dioxide (22-30) mmol/L Anion Gap (10-20) BUN (7-17) mg/dL Creatinine (0.7-1.2) MG/DL Est GFR ( Amer) Est GFR (Non-Af Amer) POC Glucose (mg/dL) (65-110) mg/dL Random Glucose (65-105) mg/dL Calcium (8.6-10.4) mg/dl Total Bilirubin (0.2-1.3) mg/dL AST (14-36) U/L ALT (9-52) U/L Alkaline Phosphatase (38-126) U/L Total Creatine Kinase (30-135) U/L CK-MB (Mass) (0.0-3.38) ng/mL Troponin I, Quant (0.00-0.120) ng/mL Total Protein (6.3-8.3) g/dL Albumin (3.5-5.0) g/dL Globulin (2.2-3.9) gm/dL Albumin/Globulin Ratio (1.0-2.1) Arterial Blood Potassium (3.6-5.2) mmol/L Urine Color (YELLOW) Urine Clarity (Clear) Urine pH (5.0-8.0) Ur Specific [place] (1.003-1.030) Urine Protein (NEGATIVE) mg/dL Urine Glucose (UA) (Normal) mg/dL Urine Ketones (NEGATIVE) mg/dL Urine Blood (NEGATIVE) Urine Nitrate (NEGATIVE) Urine Bilirubin (NEGATIVE) Urine Urobilinogen (0.2-1.0) mg/dL Ur Leukocyte Esterase (Negative) Héctor/uL Urine WBC (Auto) (0-5) /hpf Urine RBC (Auto) (0-3) /hpf Ur Squamous Epith Cells (0-5) /hpf Urine Bacteria (<OCC) Digoxin 2.7 H* (0.8-2.0) ng/mL Laboratory Results - last 24 hr 06/28/16 06/28/16 06/28/16 11:13 12:25 16:24 WBC 18.5 H RBC 3.97 Hgb 10.9 L Hct 35.7 MCV 89.9 MCH 27.4 MCHC 30.5 L RDW 16.9 H Plt Count 150 MPV 9.3 Neut % (Auto) 97.8 H Lymph % (Auto) 0.6 L [place] % (Auto) 1.4 Eos % (Auto) 0.1 Baso % (Auto) 0.1 Neut # 18.1 H Lymph # 0.1 L [place] # 0.3 Eos # 0.0 Baso # 0.0 Neutrophils % (Manual) 90 H Band Neutrophils % 5 H Lymphocytes % (Manual) 1 L Monocytes % (Manual) 3 Metamyelocytes % 1 H Toxic Granulation Present Platelet Estimate Normal Large Platelets Present Hypochromasia (manual) Slight Poikilocytosis (manual Slight Anisocytosis (manual) Slight Microcytosis (manual) Slight Macrocytosis (manual) Slight Ovalocytes Slight PT 110.4 H* INR 8.8 APTT 66 H D Puncture Site Rra pCO2 53 H pO2 304 H HCO3 19.2 L ABG pH 7.20 L ABG Total CO2 22.3 ABG O2 Saturation 99.8 H ABG Base Excess -7.4 L ABG Hemoglobin 10.5 L ABG Carboxyhemoglobin 1.4 POC ABG HHb (Measured) 0.2 ABG Methemoglobin 1.2 Jasson Test A ABG Potassium A-a O2 Difference 129.0 Respiratory Index 0.4 Hgb O2 Saturation 97.3 Glucose Lactate FiO2 70.0 Inspiratory BiPAP 16 Expiratory BiPAP 6 Crit Value Called To Crit Value Called By Crit Value Read Back Blood Gas Notified Time Sodium 131 L Potassium 5.4 H Chloride 94 L Carbon Dioxide 23 Anion Gap 19 BUN 37 H Creatinine 2.4 H Est GFR ( Amer) 24 Est GFR (Non-Af Amer) 20 POC Glucose (mg/dL) Random Glucose 388 H Calcium 8.3 L Total Bilirubin 0.4 AST 41 H ALT 49 Alkaline Phosphatase 160 H Total Creatine Kinase 267 H CK-MB (Mass) 3.68 H Troponin I, Quant 0.9200 H* Total Protein 6.6 Albumin 3.5 Globulin 3.1 Albumin/Globulin Ratio 1.1 Arterial Blood Potassium Urine Color Urine Clarity Urine pH Ur Specific [place] Urine Protein Urine Glucose (UA) Urine Ketones Urine Blood Urine Nitrate Urine Bilirubin Urine Urobilinogen Ur Leukocyte Esterase Urine WBC (Auto) Urine RBC (Auto) Ur Squamous Epith Cells Urine Bacteria Digoxin 2.7 H* 06/28/16 06/28/16 06/28/16 19:17 21:11 23:49 WBC RBC Hgb Hct MCV MCH MCHC RDW Plt Count MPV Neut % (Auto) Lymph % (Auto) [place] % (Auto) Eos % (Auto) Baso % (Auto) Neut # Lymph # [place] # Eos # Baso # Neutrophils % (Manual) Band Neutrophils % Lymphocytes % (Manual) Monocytes % (Manual) Metamyelocytes % Toxic Granulation Platelet Estimate Large Platelets Hypochromasia (manual) Poikilocytosis (manual Anisocytosis (manual) Microcytosis (manual) Macrocytosis (manual) Ovalocytes PT INR APTT Puncture Site Rra Rr pCO2 58 H 59 H pO2 104 H 116 H HCO3 21.7 22.3 ABG pH 7.23 L 7.23 L ABG Total CO2 26.1 26.5 ABG O2 Saturation 98.8 H 99.0 H ABG Base Excess -4.1 L -3.4 L ABG Hemoglobin 10.6 L ABG Carboxyhemoglobin 1.4 POC ABG HHb (Measured) 1.0 ABG Methemoglobin 0.7 Jasson Test Na Pos ABG Potassium 5.3 H A-a O2 Difference 73.0 60.0 Respiratory Index 0.7 0.5 Hgb O2 Saturation 96.9 Glucose 414 H* D Lactate 1.7 FiO2 35.0 35.0 Inspiratory BiPAP 14 14 Expiratory BiPAP 6 6 Crit Value Called To Mack santana Crit Value Called By Elva Crit Value Read Back Y Blood Gas Notified Time 1919 Sodium 132.0 Potassium Chloride 100.0 Carbon Dioxide Anion Gap BUN Creatinine Est GFR ( Amer) Est GFR (Non-Af Amer) POC Glucose (mg/dL) Random Glucose Calcium Total Bilirubin AST ALT Alkaline Phosphatase Total Creatine Kinase CK-MB (Mass) Troponin I, Quant Total Protein Albumin Globulin Albumin/Globulin Ratio Arterial Blood Potassium 5.3 H Urine Color Yellow Urine Clarity Hazy Urine pH 5.0 Ur Specific [place] 1.008 Urine Protein 2+ H Urine Glucose (UA) 3+ H Urine Ketones Negative Urine Blood 3+ H Urine Nitrate Negative Urine Bilirubin Negative Urine Urobilinogen Normal Ur Leukocyte Esterase Neg Urine WBC (Auto) 1 Urine RBC (Auto) 54 H Ur Squamous Epith Cells 1 Urine Bacteria Occ H Digoxin 06/29/16 06/29/16 00:02 00:12 WBC RBC Hgb Hct MCV MCH MCHC RDW Plt Count MPV Neut % (Auto) Lymph % (Auto) [place] % (Auto) Eos % (Auto) Baso % (Auto) Neut # Lymph # [place] # Eos # Baso # Neutrophils % (Manual) Band Neutrophils % Lymphocytes % (Manual) Monocytes % (Manual) Metamyelocytes % Toxic Granulation Platelet Estimate Large Platelets Hypochromasia (manual) Poikilocytosis (manual Anisocytosis (manual) Microcytosis (manual) Macrocytosis (manual) Ovalocytes PT INR APTT Puncture Site pCO2 pO2 HCO3 ABG pH ABG Total CO2 ABG O2 Saturation ABG Base Excess ABG Hemoglobin ABG Carboxyhemoglobin POC ABG HHb (Measured) ABG Methemoglobin Jasson Test ABG Potassium A-a O2 Difference Respiratory Index Hgb O2 Saturation Glucose Lactate FiO2 Inspiratory BiPAP Expiratory BiPAP Crit Value Called To Crit Value Called By Crit Value Read Back Blood Gas Notified Time Sodium Potassium Chloride Carbon Dioxide Anion Gap BUN Creatinine Est GFR ( Amer) Est GFR (Non-Af Amer) POC Glucose (mg/dL) 489 H* Random Glucose Calcium Total Bilirubin AST ALT Alkaline Phosphatase Total Creatine Kinase 226 H CK-MB (Mass) 3.71 H Troponin I, Quant Total Protein Albumin Globulin Albumin/Globulin Ratio Arterial Blood Potassium Urine Color Urine Clarity Urine pH Ur Specific [place] Urine Protein Urine Glucose (UA) Urine Ketones Urine Blood Urine Nitrate Urine Bilirubin Urine Urobilinogen Ur Leukocyte Esterase Urine WBC (Auto) Urine RBC (Auto) Ur Squamous Epith Cells Urine Bacteria Digoxin Fingerstick Blood Sugar Results: 267 Critical Care Progress Note - Nutrition Nutrition: Nutrition Category Date Time Status NPO Diet [DIET] Diets 06/28/16 Dinner Active
[2016-06-29] MEDS: Albuterol-Ipratrop 3 mg / 0.5 (3 ml) UD INH SCH ×4 (02:09→19:25)
[2016-06-29 02:30] LABS: ABG MECHANICAL RATE 16; ATERIAL BLOOD GAS PEEP 5; CARBOXYHEMOGLOBIN 1.3 % (0.5-1.5); DRAW SITE RB; HHB 2.8 % (0.0-5.0); METHEMOGLOBIN 0.9 % (0.0-3.0)
[2016-06-29] MEDS: MethylPREDNISolone 40 mg Vial IVP SCH ×4 (06:25→22:08)
[2016-06-29 06:50] LABS: BASO % 0.1 % (0.0-2.0); EOS # 0.1 K/uL (0.0-0.7); EOS % 0.5 % (0.0-4.0); HEMATOCRIT 32.1 % (34.0-47.0); LYMPH # 0.1 K/uL (1.0-4.3); LYMPH % 0.9 % (20.0-40.0); MEAN CORPUSCULAR HEMOGLOBIN 27.3 pg (27.0-31.0); MEAN CORPUSCULAR HGB CONC 30.7 g/dL (33.0-37.0); MEAN PLATELET VOLUME 8.9 fL (7.2-11.7); MONO # 0.1 K/uL (0.0-0.8); MONO % 0.5 % (0.0-10.0); PLATELET COUNT 110 K/uL (130-400); RED CELL DISTRIBUTION WIDTH 16.8 % (11.5-14.5)
[2016-06-29 07:01] LABS: POTASSIUM 4.8 mmol/L (3.6-5.2)
[2016-06-29 07:03] LABS: BILIRUBIN,TOTAL 0.3 mg/dL (0.2-1.3); CALCIUM 8.1 mg/dl (8.6-10.4); PHOSPHOROUS 4.4 mg/dL (2.5-4.5); TOTAL PROTEIN 6.2 g/dL (6.3-8.3)
[2016-06-29 07:04] LABS: MAGNESIUM 2.4 mg/dL (1.6-2.3)
--- NOTE | 2016-06-29 08:36 | RAD ---
HISTORY: intubated COMPARISON: 06/28/2016 FINDINGS: LUNGS: Right sided MediPort extends into the expected location of the cavoatrial junction. Endotracheal tube extending into the mid thoracic trachea. NG tube extending into the stomach. Again identified is a right suprahilar opacity compatible with mass re- identified. Biapical pleural thickening; right greater than left. Diffuse increased interstitial lung markings. Additional confluent nodular densities/ masses seen more laterally in the right midlung zone as well as superior to the mass in the right suprahilar region. Nodularity at the right lung base may represent confluence of shadows with ribs and vessels. PLEURA: As above. CARDIOVASCULAR: Normal. OSSEOUS STRUCTURES: Degenerative changes. VISUALIZED UPPER ABDOMEN: Normal. OTHER FINDINGS: None. IMPRESSION: Right sided MediPort extends into the expected location of the cavoatrial junction. Endotracheal tube extending into the mid thoracic trachea. NG tube extending into the stomach. Again identified is a right suprahilar opacity compatible with mass re- identified. Biapical pleural thickening; right greater than left. Diffuse increased interstitial lung markings. Additional confluent nodular densities/ masses seen more laterally in the right midlung zone as well as superior to the mass in the right suprahilar region. Nodularity at the right lung base may represent confluence of shadows with ribs and vessels.
[2016-06-29 08:41] LABS: INR 4.7
[2016-06-29 08:46] LABS: NEUTROPHIL 83 % (50-75); TOTAL CELLS COUNTED 100
--- NOTE | 2016-06-29 08:48 | RAD ---
HISTORY: intubated COMPARISON: 06/29/2016 FINDINGS: LUNGS: Endotracheal tube extending into the mid thoracic trachea. NG tube with the distal tip extending toward the stomach. Other lines and tubes stable position. Persistent right suprahilar mass identified. Smaller nodular density seen superior and lateral to the mass may represent nodules. Nodularity at the right lung base may represent confluence of shadows with ribs and vessels. Additional nodular density seen at the bilateral call over costophrenic angles. PLEURA: As above. CARDIOVASCULAR: Normal. OSSEOUS STRUCTURES: No significant abnormalities. VISUALIZED UPPER ABDOMEN: Normal. OTHER FINDINGS: None. IMPRESSION: Endotracheal tube extending into the mid thoracic trachea. NG tube with the distal tip extending toward the stomach. Other lines and tubes stable position. Persistent right suprahilar mass identified. Smaller nodular density seen superior and lateral to the mass may represent nodules. Nodularity at the right lung base may represent confluence of shadows with ribs and vessels. Additional nodular density seen at the bilateral call over costophrenic angles.
[2016-06-29] MEDS: Moxifloxacin IV 400mg/250ml NS 250 ML IVPB SCH (09:12)
[2016-06-29 09:14] LABS: ABG ALLEN TEST POS; ABG MECHANICAL RATE 16; ARTERIAL BLOOD HGB O2 SAT 95.9 % (95.0-98.0); ATERIAL BLOOD GAS PEEP 5; CARBOXYHEMOGLOBIN 1.3 % (0.5-1.5); DRAW SITE LRA; HHB 2.1 % (0.0-5.0); METHEMOGLOBIN 0.8 % (0.0-3.0)
[2016-06-29] MEDS: Sodium Chloride 0.9% 1,000 ML IV SCH ×2 (11:00→22:09)
--- NOTE | 2016-06-29 15:23 | CP.CCUPN ---
<Terrence Stern - Last Filed: 06/29/16 15:55> CCU Subjective - Physician Review Subjective (Free Text): 06/29/16 15:20 Pt seen and examined at bedside. Pt intubated overnight. Hypotensive (70/30 at lowest) overnight, and pt given several boluses. OGT placed. ROS unobtainable due to pt condition. Pts sister, Jannet Fried, is decision maker while pt is intubated. CCU Objective - Vital Signs / Intake & Output Vital Signs (Last 4 hours): Vital Signs Temp Pulse Resp BP Pulse Ox 06/29/16 15:00 129 H 19 143/92 H 100 06/29/16 14:00 118 H 18 131/79 100 06/29/16 13:17 131/79 06/29/16 13:00 127 H 21 131/79 100 06/29/16 12:00 98.7 F 126 H 20 107/78 99 Intake and Output (Last 8hrs): Intake & Output 06/29/16 06/29/16 06/29/16 06:59 14:59 22:59 Intake Total 637.9 680.1 Output Total 400 Balance 237.9 680.1 Weight 155 lb Intake: Intake, IV Amount 537.9 680.1 Right Port-A-Cath 537.9 30.1 Right Distal Port 650 Other 100 Output: Urine 400 Urine, Voided 400 Other: # Bowel Movements 0 0 - Physical Exam Head: Positive for: Atraumatic, Normocephalic Pupils: Positive for: PERRL Extroacular Muscles: Positive for: EOMI Mouth: Positive for: Moist Mucous Membranes Respiratory/Chest: Positive for: Rhonchi, Other (pt intubated) Cardiovascular: Positive for: Normal S1, S2, Tachycardic Abdomen: Positive for: Normal Bowel Sounds. Negative for: Distention Genitourinary/Pelvic Exam: Positive for: Other (lyon catheter in place, draining clear urine) Upper Extremity: Positive for: Normal Inspection Lower Extremity: Positive for: Normal Inspection Neurological: Positive for: Other (pt intubated and sedated) Skin: Positive for: Warm, Dry Psychiatric: Positive for: Other (pt intubated and sedated) - Medications Active Medications: Active Medications Generic Name Dose Route Start Last Admin Trade Name Freq PRN Reason Stop Dose Admin Albuterol/Ipratropium 3 ml 06/28/16 14:00 06/29/16 13:54 Duoneb 3 Mg/0.5 Mg (3 Ml) Ud INH 3 ml RQ6 LIVIER Administration Moxifloxacin HCl 250 mls @ 167 mls/hr 06/29/16 10:00 06/29/16 09:12 Avelox Iv 400mg/250ml Ns IVPB 167 mls/hr Q24H LIVIER Administration Propofol 100 mls @ 2.1 mls/hr 06/29/16 00:37 06/29/16 06:25 Diprivan IV 10 mcg/kg/min .Q24H PRN Titration TITRATE PER MD ORDER Protocol 5 MCG/KG/MIN Sodium Chloride 1,000 mls @ 100 mls/hr 06/29/16 10:30 06/29/16 11:00 Sodium Chloride 0.9% IV 100 mls/hr .Q10H LIVIER Administration Insulin Human Regular 0 unit 06/29/16 00:00 06/29/16 13:00 Novolin R SC 3 unit Q6 LIVIER Administration Protocol Methylprednisolone 60 mg 06/28/16 14:00 06/29/16 06:25 Solu-Medrol IVP 60 mg Q8 LIVIER Administration Metoprolol Tartrate 25 mg 06/29/16 10:30 06/29/16 13:17 Lopressor PO 25 mg BID LIVIER Administration Montelukast Sodium 10 mg 06/28/16 22:00 06/28/16 22:12 Singulair PO 10 mg HS LIVIER Administration Pantoprazole Sodium 40 mg 06/29/16 12:15 06/29/16 13:18 Protonix Inj IVP 40 mg DAILY LIVIER Administration - Patient Studies Lab Studies: Microbiology Studies 06/29/16 10:19 Gram Stain - Preliminary Trachasp 06/28/16 12:14 MRSA Culture (Admit) - Preliminary Nose MRSA NOT DETECTED 06/28/16 21:11 Urine Culture - Final Urine Gram Negative Richard Lab Studies 06/29/16 06/29/16 06/29/16 Range/Units 12:08 09:02 08:18 WBC (4.8-10.8) K/uL RBC (3.80-5.20) Mil/uL Hgb (11.0-16.0) g/dL Hct (34.0-47.0) % MCV (81.0-99.0) fL MCH (27.0-31.0) pg MCHC (33.0-37.0) g/dL RDW (11.5-14.5) % Plt Count (130-400) K/uL MPV (7.2-11.7) fL Neut % (Auto) (50.0-75.0) % Lymph % (Auto) (20.0-40.0) % Dent % (Auto) (0.0-10.0) % Eos % (Auto) (0.0-4.0) % Baso % (Auto) (0.0-2.0) % Neut # (1.8-7.0) K/uL Lymph # (1.0-4.3) K/uL Dent # (0.0-0.8) K/uL Eos # (0.0-0.7) K/uL Baso # (0.0-0.2) K/uL Neutrophils % (Manual) (50-75) % Band Neutrophils % (0-2) % Lymphocytes % (Manual) Monocytes % (Manual) Metamyelocytes % (0-0) % Toxic Granulation Platelet Estimate (NORMAL) Large Platelets Polychromasia Hypochromasia (manual) Poikilocytosis (manual Anisocytosis (manual) Microcytosis (manual) Macrocytosis (manual) Tear Drop Cells Ovalocytes Haskell Cells PT 57.6 H* D (9.7-12.2) SECONDS INR 4.7 D APTT 53 H D (21-34) SECONDS Puncture Site Lra pCO2 36 (35-45) mm/Hg pO2 79 L (80-100) mm/Hg HCO3 25.3 (21-28) mmol/L ABG pH 7.44 (7.35-7.45) ABG Total CO2 25.6 (22-28) mmol/L ABG O2 Saturation 97.9 (95-98) % ABG Base Excess 0.5 (-2.0-3.0) mmol/L ABG Hemoglobin 10.1 L (11.7-17.4) g/dL ABG Carboxyhemoglobin 1.3 (0.5-1.5) % POC ABG HHb (Measured) 2.1 (0.0-5.0) % ABG Methemoglobin 0.8 (0.0-3.0) % Jasson Test Pos ABG Potassium (3.6-5.2) mmol/L A-a O2 Difference 90.0 mm/Hg Respiratory Index 1.1 Hgb O2 Saturation 95.9 (95.0-98.0) % Glucose (65-105) mg/dl Lactate (0.7-2.1) mmol/L Mechanical Rate 16 FiO2 30.0 % Tidal Volume 500 PEEP 5 Inspiratory BiPAP Expiratory BiPAP Crit Value Called To Crit Value Called By Crit Value Read Back Blood Gas Notified Time Sodium (132-148) mmol/L Potassium (3.6-5.2) mmol/L Chloride (98-107) mmol/L Carbon Dioxide (22-30) mmol/L Anion Gap (10-20) BUN (7-17) mg/dL Creatinine (0.7-1.2) MG/DL Est GFR ( Amer) Est GFR (Non-Af Amer) POC Glucose (mg/dL) 225 H (65-110) mg/dL Random Glucose (65-105) mg/dL Calcium (8.6-10.4) mg/dl Phosphorus (2.5-4.5) mg/dL Magnesium (1.6-2.3) mg/dL Total Bilirubin (0.2-1.3) mg/dL AST (14-36) U/L ALT (9-52) U/L Alkaline Phosphatase (38-126) U/L Total Creatine Kinase (30-135) U/L CK-MB (Mass) (0.0-3.38) ng/mL Troponin I, Quant (0.00-0.120) ng/mL Total Protein (6.3-8.3) g/dL Albumin (3.5-5.0) g/dL Globulin (2.2-3.9) gm/dL Albumin/Globulin Ratio (1.0-2.1) Arterial Blood Potassium (3.6-5.2) mmol/L Urine Color (YELLOW) Urine Clarity (Clear) Urine pH (5.0-8.0) Ur Specific [place] (1.003-1.030) Urine Protein (NEGATIVE) mg/dL Urine Glucose (UA) (Normal) mg/dL Urine Ketones (NEGATIVE) mg/dL Urine Blood (NEGATIVE) Urine Nitrate (NEGATIVE) Urine Bilirubin (NEGATIVE) Urine Urobilinogen (0.2-1.0) mg/dL Ur Leukocyte Esterase (Negative) Héctor/uL Urine WBC (Auto) (0-5) /hpf Urine RBC (Auto) (0-3) /hpf Ur Squamous Epith Cells (0-5) /hpf Urine Bacteria (<OCC) 06/29/16 06/29/16 06/29/16 Range/Units 06:41 06:36 06:16 WBC 13.0 H (4.8-10.8) K/uL RBC 3.61 L (3.80-5.20) Mil/uL Hgb 9.8 L (11.0-16.0) g/dL Hct 32.1 L (34.0-47.0) % MCV 89.0 (81.0-99.0) fL MCH 27.3 (27.0-31.0) pg MCHC 30.7 L (33.0-37.0) g/dL RDW 16.8 H (11.5-14.5) % Plt Count 110 L D (130-400) K/uL MPV 8.9 (7.2-11.7) fL Neut % (Auto) 98.0 H (50.0-75.0) % Lymph % (Auto) 0.9 L (20.0-40.0) % Dent % (Auto) 0.5 (0.0-10.0) % Eos % (Auto) 0.5 (0.0-4.0) % Baso % (Auto) 0.1 (0.0-2.0) % Neut # 12.8 H (1.8-7.0) K/uL Lymph # 0.1 L (1.0-4.3) K/uL Dent # 0.1 (0.0-0.8) K/uL Eos # 0.1 (0.0-0.7) K/uL Baso # 0.0 (0.0-0.2) K/uL Neutrophils % (Manual) 83 H (50-75) % Band Neutrophils % 17 H* (0-2) % Lymphocytes % (Manual) TEST NOT PERFORMED Monocytes % (Manual) TEST NOT PERFORMED Metamyelocytes % (0-0) % Toxic Granulation Platelet Estimate Slightly decreased L (NORMAL) Large Platelets Polychromasia Slight Hypochromasia (manual) Slight Poikilocytosis (manual Anisocytosis (manual) Slight Microcytosis (manual) Macrocytosis (manual) Slight Tear Drop Cells Slight Ovalocytes Nilsa Cells Slight PT (9.7-12.2) SECONDS INR APTT (21-34) SECONDS Puncture Site pCO2 (35-45) mm/Hg pO2 (80-100) mm/Hg HCO3 (21-28) mmol/L ABG pH (7.35-7.45) ABG Total CO2 (22-28) mmol/L ABG O2 Saturation (95-98) % ABG Base Excess (-2.0-3.0) mmol/L ABG Hemoglobin (11.7-17.4) g/dL ABG Carboxyhemoglobin (0.5-1.5) % POC ABG HHb (Measured) (0.0-5.0) % ABG Methemoglobin (0.0-3.0) % Jasson Test ABG Potassium (3.6-5.2) mmol/L A-a O2 Difference mm/Hg Respiratory Index Hgb O2 Saturation (95.0-98.0) % Glucose (65-105) mg/dl Lactate (0.7-2.1) mmol/L Mechanical Rate FiO2 % Tidal Volume PEEP Inspiratory BiPAP Expiratory BiPAP Crit Value Called To Crit Value Called By Crit Value Read Back Blood Gas Notified Time Sodium 135 (132-148) mmol/L Potassium 4.8 (3.6-5.2) mmol/L Chloride 97 L (98-107) mmol/L Carbon Dioxide 25 (22-30) mmol/L Anion Gap 18 (10-20) BUN 41 H (7-17) mg/dL Creatinine 2.4 H (0.7-1.2) MG/DL Est GFR ( Amer) 24 Est GFR (Non-Af Amer) 20 POC Glucose (mg/dL) 278 H (65-110) mg/dL Random Glucose 276 H (65-105) mg/dL Calcium 8.1 L (8.6-10.4) mg/dl Phosphorus 4.4 (2.5-4.5) mg/dL Magnesium 2.4 H (1.6-2.3) mg/dL Total Bilirubin 0.3 (0.2-1.3) mg/dL AST 28 (14-36) U/L ALT 36 (9-52) U/L Alkaline Phosphatase 141 H (38-126) U/L Total Creatine Kinase (30-135) U/L CK-MB (Mass) (0.0-3.38) ng/mL Troponin I, Quant (0.00-0.120) ng/mL Total Protein 6.2 L (6.3-8.3) g/dL Albumin 3.1 L (3.5-5.0) g/dL Globulin 3.0 (2.2-3.9) gm/dL Albumin/Globulin Ratio 1.0 (1.0-2.1) Arterial Blood Potassium (3.6-5.2) mmol/L Urine Color (YELLOW) Urine Clarity (Clear) Urine pH (5.0-8.0) Ur Specific [place] (1.003-1.030) Urine Protein (NEGATIVE) mg/dL Urine Glucose (UA) (Normal) mg/dL Urine Ketones (NEGATIVE) mg/dL Urine Blood (NEGATIVE) Urine Nitrate (NEGATIVE) Urine Bilirubin (NEGATIVE) Urine Urobilinogen (0.2-1.0) mg/dL Ur Leukocyte Esterase (Negative) Héctor/uL Urine WBC (Auto) (0-5) /hpf Urine RBC (Auto) (0-3) /hpf Ur Squamous Epith Cells (0-5) /hpf Urine Bacteria (<OCC) 06/29/16 06/29/16 06/29/16 Range/Units 02:22 00:12 00:02 WBC (4.8-10.8) K/uL RBC (3.80-5.20) Mil/uL Hgb (11.0-16.0) g/dL Hct (34.0-47.0) % MCV (81.0-99.0) fL MCH (27.0-31.0) pg MCHC (33.0-37.0) g/dL RDW (11.5-14.5) % Plt Count (130-400) K/uL MPV (7.2-11.7) fL Neut % (Auto) (50.0-75.0) % Lymph % (Auto) (20.0-40.0) % Dent % (Auto) (0.0-10.0) % Eos % (Auto) (0.0-4.0) % Baso % (Auto) (0.0-2.0) % Neut # (1.8-7.0) K/uL Lymph # (1.0-4.3) K/uL Dent # (0.0-0.8) K/uL Eos # (0.0-0.7) K/uL Baso # (0.0-0.2) K/uL Neutrophils % (Manual) (50-75) % Band Neutrophils % (0-2) % Lymphocytes % (Manual) Monocytes % (Manual) Metamyelocytes % (0-0) % Toxic Granulation Platelet Estimate (NORMAL) Large Platelets Polychromasia Hypochromasia (manual) Poikilocytosis (manual Anisocytosis (manual) Microcytosis (manual) Macrocytosis (manual) Tear Drop Cells Ovalocytes Haskell Cells PT (9.7-12.2) SECONDS INR APTT (21-34) SECONDS Puncture Site Rb pCO2 53 H (35-45) mm/Hg pO2 82 (80-100) mm/Hg HCO3 21.5 (21-28) mmol/L ABG pH 7.25 L (7.35-7.45) ABG Total CO2 24.8 (22-28) mmol/L ABG O2 Saturation 97.1 (95-98) % ABG Base Excess -4.3 L (-2.0-3.0) mmol/L ABG Hemoglobin 10.4 L (11.7-17.4) g/dL ABG Carboxyhemoglobin 1.3 (0.5-1.5) % POC ABG HHb (Measured) 2.8 (0.0-5.0) % ABG Methemoglobin 0.9 (0.0-3.0) % Jasson Test Na ABG Potassium (3.6-5.2) mmol/L A-a O2 Difference 66.0 mm/Hg Respiratory Index 0.8 Hgb O2 Saturation 95.0 (95.0-98.0) % Glucose (65-105) mg/dl Lactate (0.7-2.1) mmol/L Mechanical Rate 16 FiO2 30.0 % Tidal Volume 500 PEEP 5 Inspiratory BiPAP Expiratory BiPAP Crit Value Called To Crit Value Called By Crit Value Read Back Blood Gas Notified Time Sodium (132-148) mmol/L Potassium (3.6-5.2) mmol/L Chloride (98-107) mmol/L Carbon Dioxide (22-30) mmol/L Anion Gap (10-20) BUN (7-17) mg/dL Creatinine (0.7-1.2) MG/DL Est GFR ( Amer) Est GFR (Non-Af Amer) POC Glucose (mg/dL) 489 H* (65-110) mg/dL Random Glucose (65-105) mg/dL Calcium (8.6-10.4) mg/dl Phosphorus (2.5-4.5) mg/dL Magnesium (1.6-2.3) mg/dL Total Bilirubin (0.2-1.3) mg/dL AST (14-36) U/L ALT (9-52) U/L Alkaline Phosphatase (38-126) U/L Total Creatine Kinase 226 H (30-135) U/L CK-MB (Mass) 3.71 H (0.0-3.38) ng/mL Troponin I, Quant 0.3840 H* (0.00-0.120) ng/mL Total Protein (6.3-8.3) g/dL Albumin (3.5-5.0) g/dL Globulin (2.2-3.9) gm/dL Albumin/Globulin Ratio (1.0-2.1) Arterial Blood Potassium (3.6-5.2) mmol/L Urine Color (YELLOW) Urine Clarity (Clear) Urine pH (5.0-8.0) Ur Specific [place] (1.003-1.030) Urine Protein (NEGATIVE) mg/dL Urine Glucose (UA) (Normal) mg/dL Urine Ketones (NEGATIVE) mg/dL Urine Blood (NEGATIVE) Urine Nitrate (NEGATIVE) Urine Bilirubin (NEGATIVE) Urine Urobilinogen (0.2-1.0) mg/dL Ur Leukocyte Esterase (Negative) Héctor/uL Urine WBC (Auto) (0-5) /hpf Urine RBC (Auto) (0-3) /hpf Ur Squamous Epith Cells (0-5) /hpf Urine Bacteria (<OCC) 06/28/16 06/28/16 06/28/16 Range/Units 23:49 21:11 19:17 WBC (4.8-10.8) K/uL RBC (3.80-5.20) Mil/uL Hgb (11.0-16.0) g/dL Hct (34.0-47.0) % MCV (81.0-99.0) fL MCH (27.0-31.0) pg MCHC (33.0-37.0) g/dL RDW (11.5-14.5) % Plt Count (130-400) K/uL MPV (7.2-11.7) fL Neut % (Auto) (50.0-75.0) % Lymph % (Auto) (20.0-40.0) % Dent % (Auto) (0.0-10.0) % Eos % (Auto) (0.0-4.0) % Baso % (Auto) (0.0-2.0) % Neut # (1.8-7.0) K/uL Lymph # (1.0-4.3) K/uL Dent # (0.0-0.8) K/uL Eos # (0.0-0.7) K/uL Baso # (0.0-0.2) K/uL Neutrophils % (Manual) (50-75) % Band Neutrophils % (0-2) % Lymphocytes % (Manual) Monocytes % (Manual) Metamyelocytes % (0-0) % Toxic Granulation Platelet Estimate (NORMAL) Large Platelets Polychromasia Hypochromasia (manual) Poikilocytosis (manual Anisocytosis (manual) Microcytosis (manual) Macrocytosis (manual) Tear Drop Cells Ovalocytes Haskell Cells PT (9.7-12.2) SECONDS INR APTT (21-34) SECONDS Puncture Site Rr Rra pCO2 59 H 58 H (35-45) mm/Hg pO2 116 H 104 H (80-100) mm/Hg HCO3 22.3 21.7 (21-28) mmol/L ABG pH 7.23 L 7.23 L (7.35-7.45) ABG Total CO2 26.5 26.1 (22-28) mmol/L ABG O2 Saturation 99.0 H 98.8 H (95-98) % ABG Base Excess -3.4 L -4.1 L (-2.0-3.0) mmol/L ABG Hemoglobin 10.6 L (11.7-17.4) g/dL ABG Carboxyhemoglobin 1.4 (0.5-1.5) % POC ABG HHb (Measured) 1.0 (0.0-5.0) % ABG Methemoglobin 0.7 (0.0-3.0) % Jasson Test Pos Na ABG Potassium 5.3 H (3.6-5.2) mmol/L A-a O2 Difference 60.0 73.0 mm/Hg Respiratory Index 0.5 0.7 Hgb O2 Saturation 96.9 (95.0-98.0) % Glucose 414 H* D (65-105) mg/dl Lactate 1.7 (0.7-2.1) mmol/L Mechanical Rate FiO2 35.0 35.0 % Tidal Volume PEEP Inspiratory BiPAP 14 14 Expiratory BiPAP 6 6 Crit Value Called To Mack santana Crit Value Called By Elva Crit Value Read Back Y Blood Gas Notified Time 1919 Sodium 132.0 (132-148) mmol/L Potassium (3.6-5.2) mmol/L Chloride 100.0 (98-107) mmol/L Carbon Dioxide (22-30) mmol/L Anion Gap (10-20) BUN (7-17) mg/dL Creatinine (0.7-1.2) MG/DL Est GFR ( Amer) Est GFR (Non-Af Amer) POC Glucose (mg/dL) (65-110) mg/dL Random Glucose (65-105) mg/dL Calcium (8.6-10.4) mg/dl Phosphorus (2.5-4.5) mg/dL Magnesium (1.6-2.3) mg/dL Total Bilirubin (0.2-1.3) mg/dL AST (14-36) U/L ALT (9-52) U/L Alkaline Phosphatase (38-126) U/L Total Creatine Kinase (30-135) U/L CK-MB (Mass) (0.0-3.38) ng/mL Troponin I, Quant (0.00-0.120) ng/mL Total Protein (6.3-8.3) g/dL Albumin (3.5-5.0) g/dL Globulin (2.2-3.9) gm/dL Albumin/Globulin Ratio (1.0-2.1) Arterial Blood Potassium 5.3 H (3.6-5.2) mmol/L Urine Color Yellow (YELLOW) Urine Clarity Hazy (Clear) Urine pH 5.0 (5.0-8.0) Ur Specific [place] 1.008 (1.003-1.030) Urine Protein 2+ H (NEGATIVE) mg/dL Urine Glucose (UA) 3+ H (Normal) mg/dL Urine Ketones Negative (NEGATIVE) mg/dL Urine Blood 3+ H (NEGATIVE) Urine Nitrate Negative (NEGATIVE) Urine Bilirubin Negative (NEGATIVE) Urine Urobilinogen Normal (0.2-1.0) mg/dL Ur Leukocyte Esterase Neg (Negative) Héctor/uL Urine WBC (Auto) 1 (0-5) /hpf Urine RBC (Auto) 54 H (0-3) /hpf Ur Squamous Epith Cells 1 (0-5) /hpf Urine Bacteria Occ H (<OCC) //17 Range/Units 16:24 WBC 18.5 H (4.8-10.8) K/uL RBC 3.97 (3.80-5.20) Mil/uL Hgb 10.9 L (11.0-16.0) g/dL Hct 35.7 (34.0-47.0) % MCV 89.9 (81.0-99.0) fL MCH 27.4 (27.0-31.0) pg MCHC 30.5 L (33.0-37.0) g/dL RDW 16.9 H (11.5-14.5) % Plt Count 150 (130-400) K/uL MPV 9.3 (7.2-11.7) fL Neut % (Auto) 97.8 H (50.0-75.0) % Lymph % (Auto) 0.6 L (20.0-40.0) % Dent % (Auto) 1.4 (0.0-10.0) % Eos % (Auto) 0.1 (0.0-4.0) % Baso % (Auto) 0.1 (0.0-2.0) % Neut # 18.1 H (1.8-7.0) K/uL Lymph # 0.1 L (1.0-4.3) K/uL Dent # 0.3 (0.0-0.8) K/uL Eos # 0.0 (0.0-0.7) K/uL Baso # 0.0 (0.0-0.2) K/uL Neutrophils % (Manual) 90 H (50-75) % Band Neutrophils % 5 H (0-2) % Lymphocytes % (Manual) 1 L Monocytes % (Manual) 3 Metamyelocytes % 1 H (0-0) % Toxic Granulation Present Platelet Estimate Normal (NORMAL) Large Platelets Present Polychromasia Hypochromasia (manual) Slight Poikilocytosis (manual Slight Anisocytosis (manual) Slight Microcytosis (manual) Slight Macrocytosis (manual) Slight Tear Drop Cells Ovalocytes Slight Haskell Cells PT (9.7-12.2) SECONDS INR APTT (21-34) SECONDS Puncture Site pCO2 (35-45) mm/Hg pO2 (80-100) mm/Hg HCO3 (21-28) mmol/L ABG pH (7.35-7.45) ABG Total CO2 (22-28) mmol/L ABG O2 Saturation (95-98) % ABG Base Excess (-2.0-3.0) mmol/L ABG Hemoglobin (11.7-17.4) g/dL ABG Carboxyhemoglobin (0.5-1.5) % POC ABG HHb (Measured) (0.0-5.0) % ABG Methemoglobin (0.0-3.0) % Jasson Test ABG Potassium (3.6-5.2) mmol/L A-a O2 Difference mm/Hg Respiratory Index Hgb O2 Saturation (95.0-98.0) % Glucose (65-105) mg/dl Lactate (0.7-2.1) mmol/L Mechanical Rate FiO2 % Tidal Volume PEEP Inspiratory BiPAP Expiratory BiPAP Crit Value Called To Crit Value Called By Crit Value Read Back Blood Gas Notified Time Sodium 131 L (132-148) mmol/L Potassium 5.4 H (3.6-5.2) mmol/L Chloride 94 L (98-107) mmol/L Carbon Dioxide 23 (22-30) mmol/L Anion Gap 19 (10-20) BUN 37 H (7-17) mg/dL Creatinine 2.4 H (0.7-1.2) MG/DL Est GFR ( Amer) 24 Est GFR (Non-Af Amer) 20 POC Glucose (mg/dL) (65-110) mg/dL Random Glucose 388 H (65-105) mg/dL Calcium 8.3 L (8.6-10.4) mg/dl Phosphorus (2.5-4.5) mg/dL Magnesium (1.6-2.3) mg/dL Total Bilirubin 0.4 (0.2-1.3) mg/dL AST 41 H (14-36) U/L ALT 49 (9-52) U/L Alkaline Phosphatase 160 H (38-126) U/L Total Creatine Kinase 267 H (30-135) U/L CK-MB (Mass) 3.68 H (0.0-3.38) ng/mL Troponin I, Quant 0.9200 H* (0.00-0.120) ng/mL Total Protein 6.6 (6.3-8.3) g/dL Albumin 3.5 (3.5-5.0) g/dL Globulin 3.1 (2.2-3.9) gm/dL Albumin/Globulin Ratio 1.1 (1.0-2.1) Arterial Blood Potassium (3.6-5.2) mmol/L Urine Color (YELLOW) Urine Clarity (Clear) Urine pH (5.0-8.0) Ur Specific [place] (1.003-1.030) Urine Protein (NEGATIVE) mg/dL Urine Glucose (UA) (Normal) mg/dL Urine Ketones (NEGATIVE) mg/dL Urine Blood (NEGATIVE) Urine Nitrate (NEGATIVE) Urine Bilirubin (NEGATIVE) Urine Urobilinogen (0.2-1.0) mg/dL Ur Leukocyte Esterase (Negative) Héctor/uL Urine WBC (Auto) (0-5) /hpf Urine RBC (Auto) (0-3) /hpf Ur Squamous Epith Cells (0-5) /hpf Urine Bacteria (<OCC) Laboratory Results - last 24 hr 06/28/16 06/28/16 06/28/16 16:24 19:17 21:11 WBC 18.5 H RBC 3.97 Hgb 10.9 L Hct 35.7 MCV 89.9 MCH 27.4 MCHC 30.5 L RDW 16.9 H Plt Count 150 MPV 9.3 Neut % (Auto) 97.8 H Lymph % (Auto) 0.6 L Dent % (Auto) 1.4 Eos % (Auto) 0.1 Baso % (Auto) 0.1 Neut # 18.1 H Lymph # 0.1 L Dent # 0.3 Eos # 0.0 Baso # 0.0 Neutrophils % (Manual) 90 H Band Neutrophils % 5 H Lymphocytes % (Manual) 1 L Monocytes % (Manual) 3 Metamyelocytes % 1 H Toxic Granulation Present Platelet Estimate Normal Large Platelets Present Polychromasia Hypochromasia (manual) Slight Poikilocytosis (manual Slight Anisocytosis (manual) Slight Microcytosis (manual) Slight Macrocytosis (manual) Slight Tear Drop Cells Ovalocytes Slight [place] Cells PT INR APTT Puncture Site Rra pCO2 58 H pO2 104 H HCO3 21.7 ABG pH 7.23 L ABG Total CO2 26.1 ABG O2 Saturation 98.8 H ABG Base Excess -4.1 L ABG Hemoglobin ABG Carboxyhemoglobin POC ABG HHb (Measured) ABG Methemoglobin Jasson Test Na ABG Potassium 5.3 H A-a O2 Difference 73.0 Respiratory Index 0.7 Hgb O2 Saturation Glucose 414 H* D Lactate 1.7 Mechanical Rate FiO2 35.0 Tidal Volume PEEP Inspiratory BiPAP 14 Expiratory BiPAP 6 Crit Value Called To Mack santana Crit Value Called By Elva Crit Value Read Back Y Blood Gas Notified Time 1919 Sodium 131 L 132.0 Potassium 5.4 H Chloride 94 L 100.0 Carbon Dioxide 23 Anion Gap 19 BUN 37 H Creatinine 2.4 H Est GFR ( Amer) 24 Est GFR (Non-Af Amer) 20 POC Glucose (mg/dL) Random Glucose 388 H Calcium 8.3 L Phosphorus Magnesium Total Bilirubin 0.4 AST 41 H ALT 49 Alkaline Phosphatase 160 H Total Creatine Kinase 267 H CK-MB (Mass) 3.68 H Troponin I, Quant 0.9200 H* Total Protein 6.6 Albumin 3.5 Globulin 3.1 Albumin/Globulin Ratio 1.1 Arterial Blood Potassium 5.3 H Urine Color Yellow Urine Clarity Hazy Urine pH 5.0 Ur Specific [place] 1.008 Urine Protein 2+ H Urine Glucose (UA) 3+ H Urine Ketones Negative Urine Blood 3+ H Urine Nitrate Negative Urine Bilirubin Negative Urine Urobilinogen Normal Ur Leukocyte Esterase Neg Urine WBC (Auto) 1 Urine RBC (Auto) 54 H Ur Squamous Epith Cells 1 Urine Bacteria Occ H 06/28/16 06/29/16 06/29/16 23:49 00:02 00:12 WBC RBC Hgb Hct MCV MCH MCHC RDW Plt Count MPV Neut % (Auto) Lymph % (Auto) Dent % (Auto) Eos % (Auto) Baso % (Auto) Neut # Lymph # Dent # Eos # Baso # Neutrophils % (Manual) Band Neutrophils % Lymphocytes % (Manual) Monocytes % (Manual) Metamyelocytes % Toxic Granulation Platelet Estimate Large Platelets Polychromasia Hypochromasia (manual) Poikilocytosis (manual Anisocytosis (manual) Microcytosis (manual) Macrocytosis (manual) Tear Drop Cells Ovalocytes [place] Cells PT INR APTT Puncture Site Rr pCO2 59 H pO2 116 H HCO3 22.3 ABG pH 7.23 L ABG Total CO2 26.5 ABG O2 Saturation 99.0 H ABG Base Excess -3.4 L ABG Hemoglobin 10.6 L ABG Carboxyhemoglobin 1.4 POC ABG HHb (Measured) 1.0 ABG Methemoglobin 0.7 Jasson Test Pos ABG Potassium A-a O2 Difference 60.0 Respiratory Index 0.5 Hgb O2 Saturation 96.9 Glucose Lactate Mechanical Rate FiO2 35.0 Tidal Volume PEEP Inspiratory BiPAP 14 Expiratory BiPAP 6 Crit Value Called To Crit Value Called By Crit Value Read Back Blood Gas Notified Time Sodium Potassium Chloride Carbon Dioxide Anion Gap BUN Creatinine Est GFR ( Amer) Est GFR (Non-Af Amer) POC Glucose (mg/dL) 489 H* Random Glucose Calcium Phosphorus Magnesium Total Bilirubin AST ALT Alkaline Phosphatase Total Creatine Kinase 226 H CK-MB (Mass) 3.71 H Troponin I, Quant 0.3840 H* Total Protein Albumin Globulin Albumin/Globulin Ratio Arterial Blood Potassium Urine Color Urine Clarity Urine pH Ur Specific [place] Urine Protein Urine Glucose (UA) Urine Ketones Urine Blood Urine Nitrate Urine Bilirubin Urine Urobilinogen Ur Leukocyte Esterase Urine WBC (Auto) Urine RBC (Auto) Ur Squamous Epith Cells Urine Bacteria 06/29/16 06/29/16 06/29/16 02:22 06:16 06:36 WBC RBC Hgb Hct MCV MCH MCHC RDW Plt Count MPV Neut % (Auto) Lymph % (Auto) Dent % (Auto) Eos % (Auto) Baso % (Auto) Neut # Lymph # Dent # Eos # Baso # Neutrophils % (Manual) Band Neutrophils % Lymphocytes % (Manual) Monocytes % (Manual) Metamyelocytes % Toxic Granulation Platelet Estimate Large Platelets Polychromasia Hypochromasia (manual) Poikilocytosis (manual Anisocytosis (manual) Microcytosis (manual) Macrocytosis (manual) Tear Drop Cells Ovalocytes [place] Cells PT INR APTT Puncture Site Rb pCO2 53 H pO2 82 HCO3 21.5 ABG pH 7.25 L ABG Total CO2 24.8 ABG O2 Saturation 97.1 ABG Base Excess -4.3 L ABG Hemoglobin 10.4 L ABG Carboxyhemoglobin 1.3 POC ABG HHb (Measured) 2.8 ABG Methemoglobin 0.9 Jasson Test Na ABG Potassium A-a O2 Difference 66.0 Respiratory Index 0.8 Hgb O2 Saturation 95.0 Glucose Lactate Mechanical Rate 16 FiO2 30.0 Tidal Volume 500 PEEP 5 Inspiratory BiPAP Expiratory BiPAP Crit Value Called To Crit Value Called By Crit Value Read Back Blood Gas Notified Time Sodium 135 Potassium 4.8 Chloride 97 L Carbon Dioxide 25 Anion Gap 18 BUN 41 H Creatinine 2.4 H Est GFR ( Amer) 24 Est GFR (Non-Af Amer) 20 POC Glucose (mg/dL) 278 H Random Glucose 276 H Calcium 8.1 L Phosphorus 4.4 Magnesium 2.4 H Total Bilirubin 0.3 AST 28 ALT 36 Alkaline Phosphatase 141 H Total Creatine Kinase CK-MB (Mass) Troponin I, Quant Total Protein 6.2 L Albumin 3.1 L Globulin 3.0 Albumin/Globulin Ratio 1.0 Arterial Blood Potassium Urine Color Urine Clarity Urine pH Ur Specific [place] Urine Protein Urine Glucose (UA) Urine Ketones Urine Blood Urine Nitrate Urine Bilirubin Urine Urobilinogen Ur Leukocyte Esterase Urine WBC (Auto) Urine RBC (Auto) Ur Squamous Epith Cells Urine Bacteria 06/29/16 06/29/16 06/29/16 06:41 08:18 09:02 WBC 13.0 H RBC 3.61 L Hgb 9.8 L Hct 32.1 L MCV 89.0 MCH 27.3 MCHC 30.7 L RDW 16.8 H Plt Count 110 L D MPV 8.9 Neut % (Auto) 98.0 H Lymph % (Auto) 0.9 L [place] % (Auto) 0.5 Eos % (Auto) 0.5 Baso % (Auto) 0.1 Neut # 12.8 H Lymph # 0.1 L Dent # 0.1 Eos # 0.1 Baso # 0.0 Neutrophils % (Manual) 83 H Band Neutrophils % 17 H* Lymphocytes % (Manual) TEST NOT PERFORMED Monocytes % (Manual) TEST NOT PERFORMED Metamyelocytes % Toxic Granulation Platelet Estimate Slightly decreased L Large Platelets Polychromasia Slight Hypochromasia (manual) Slight Poikilocytosis (manual Anisocytosis (manual) Slight Microcytosis (manual) Macrocytosis (manual) Slight Tear Drop Cells Slight Ovalocytes Nilsa Cells Slight PT 57.6 H* D INR 4.7 D APTT 53 H D Puncture Site Lra pCO2 36 pO2 79 L HCO3 25.3 ABG pH 7.44 ABG Total CO2 25.6 ABG O2 Saturation 97.9 ABG Base Excess 0.5 ABG Hemoglobin 10.1 L ABG Carboxyhemoglobin 1.3 POC ABG HHb (Measured) 2.1 ABG Methemoglobin 0.8 Jasson Test Pos ABG Potassium A-a O2 Difference 90.0 Respiratory Index 1.1 Hgb O2 Saturation 95.9 Glucose Lactate Mechanical Rate 16 FiO2 30.0 Tidal Volume 500 PEEP 5 Inspiratory BiPAP Expiratory BiPAP Crit Value Called To Crit Value Called By Crit Value Read Back Blood Gas Notified Time Sodium Potassium Chloride Carbon Dioxide Anion Gap BUN Creatinine Est GFR ( Amer) Est GFR (Non-Af Amer) POC Glucose (mg/dL) Random Glucose Calcium Phosphorus Magnesium Total Bilirubin AST ALT Alkaline Phosphatase Total Creatine Kinase CK-MB (Mass) Troponin I, Quant Total Protein Albumin Globulin Albumin/Globulin Ratio Arterial Blood Potassium Urine Color Urine Clarity Urine pH Ur Specific [place] Urine Protein Urine Glucose (UA) Urine Ketones Urine Blood Urine Nitrate Urine Bilirubin Urine Urobilinogen Ur Leukocyte Esterase Urine WBC (Auto) Urine RBC (Auto) Ur Squamous Epith Cells Urine Bacteria 06/29/16 12:08 WBC RBC Hgb Hct MCV MCH MCHC RDW Plt Count MPV Neut % (Auto) Lymph % (Auto) Dent % (Auto) Eos % (Auto) Baso % (Auto) Neut # Lymph # Dent # Eos # Baso # Neutrophils % (Manual) Band Neutrophils % Lymphocytes % (Manual) Monocytes % (Manual) Metamyelocytes % Toxic Granulation Platelet Estimate Large Platelets Polychromasia Hypochromasia (manual) Poikilocytosis (manual Anisocytosis (manual) Microcytosis (manual) Macrocytosis (manual) Tear Drop Cells Ovalocytes Haskell Cells PT INR APTT Puncture Site pCO2 pO2 HCO3 ABG pH ABG Total CO2 ABG O2 Saturation ABG Base Excess ABG Hemoglobin ABG Carboxyhemoglobin POC ABG HHb (Measured) ABG Methemoglobin Jasson Test ABG Potassium A-a O2 Difference Respiratory Index Hgb O2 Saturation Glucose Lactate Mechanical Rate FiO2 Tidal Volume PEEP Inspiratory BiPAP Expiratory BiPAP Crit Value Called To Crit Value Called By Crit Value Read Back Blood Gas Notified Time Sodium Potassium Chloride Carbon Dioxide Anion Gap BUN Creatinine Est GFR ( Amer) Est GFR (Non-Af Amer) POC Glucose (mg/dL) 225 H Random Glucose Calcium Phosphorus Magnesium Total Bilirubin AST ALT Alkaline Phosphatase Total Creatine Kinase CK-MB (Mass) Troponin I, Quant Total Protein Albumin Globulin Albumin/Globulin Ratio Arterial Blood Potassium Urine Color Urine Clarity Urine pH Ur Specific [place] Urine Protein Urine Glucose (UA) Urine Ketones Urine Blood Urine Nitrate Urine Bilirubin Urine Urobilinogen Ur Leukocyte Esterase Urine WBC (Auto) Urine RBC (Auto) Ur Squamous Epith Cells Urine Bacteria Fingerstick Blood Sugar Results: 267 Review of Systems - Review of Systems Systems not reviewed;Unavailable: Intubated Critical Care Progress Note - Nutrition Nutrition: Nutrition Category Date Time Status NPO Diet [DIET] Diets 06/28/16 Dinner Active Assessment/Plan - Assessment and Plan (Free Text) Assessment: 70-year-old female with history of anemia arthritis, asthma, cardiac arrhythmias , COPD hypertension, diabetes, hypercholesteremia, kidney stones, lung cancer, pulmonary embolism, renal insufficiency. Patient came to the emergency room with the sudden onset of shortness of breath. Pt intubated and sedated. On Avelox for possible CAP Plan: Neuro: Pt intubated and sedated - Propofol titrated for sedation Endo: Hx Diabetes ISS - medium Q6H Accuchecks Q6H B+, high of 489 this AM Cardio: Tachycardic (120's), Normotensive - Lopressor 25mg PO BID Elevated troponins - 0.92, 0.384 Hyperkalemia 5.7 on admission - Kayexalate given, repeat 4.8 Pulm: Hx of lobectomy, lung CA Intubated - pt initailly on BiPap, remained hypoxic Vent settings: TV: 500, FiO2: 30, Peep 5 ABG improving CXR (06/29/16): ETT tube in good position. NGT in good position. Persistent right suprahilar mass. Smaller nodular density superior-lateral to mass may represent nodules. Nodularity at right lung base may represent shadows with ribs and vessels. Additional nodular density seen over costophrenic angles (see full report) - Pt noted green/black sputum for several days before admission - Avelox 400mg IV Q24H Hx of COPD - Solumedrol 60mg IVP Q8H - Singulair 10mg PO HS GI: Tubefeedings: Diabetisource, Goal 45ml/hr /Renal: BUN/Cr 41/2.4 - stable since admission UA: 2+ protein, 3+ glucose, Nitrate/LE negative, RBC 54, BActeria occasional Urine cx (06/26/16): Gram negative richard NS @ 100cc/hr Monitor I/Os Heme/Onc: Hx of anemia - H/H 11/20/32.1 Coagulopathy: - Inr 4.7, PT 57.6, PTT 53 ID: Leukocytosis 28, Tachycardic - left shift, bandemia 17 - Pt on steroids (solumedrol 60mg Q6H) Blood cx (06/28/16): no growth for 24 hours x 2 Urine cx (06/26/16): Gram negative richard Sputum Cx (06/29/16): No growth MRSA screen (06/28/16): not detected Hx of Benzo/Alcohol Abuse - UDS negative MSKLTL: Prophylaxis: DVT: VTE: GI: <Haile Giron - Last Filed: 06/29/16 17:42> CCU Objective - Vital Signs / Intake & Output Vital Signs (Last 4 hours): Vital Signs Temp Pulse Resp BP Pulse Ox 06/29/16 17:00 123 H 18 137/90 100 06/29/16 16:00 98.8 F 128 H 16 134/87 100 06/29/16 15:00 129 H 19 143/92 H 100 06/29/16 14:00 118 H 18 131/79 100 Intake and Output (Last 8hrs): Intake & Output 06/29/16 06/29/16 06/29/16 06:59 14:59 22:59 Intake Total 637.9 788.7 325.8 Output Total 400 Balance 237.9 788.7 325.8 Weight 155 lb Intake: Intake, IV Amount 537.9 788.7 325.8 Right Port-A-Cath 537.9 38.7 25.8 Right Distal Port 750 300 Other 100 Output: Urine 400 Urine, Voided 400 Other: # Bowel Movements 0 0 - Medications Active Medications: Active Medications Generic Name Dose Route Start Last Admin Trade Name Freq PRN Reason Stop Dose Admin Albuterol/Ipratropium 3 ml 06/28/16 14:00 06/29/16 13:54 Duoneb 3 Mg/0.5 Mg (3 Ml) Ud INH 3 ml RQ6 LIVIER Administration Moxifloxacin HCl 250 mls @ 167 mls/hr 06/29/16 10:00 06/29/16 09:12 Avelox Iv 400mg/250ml Ns IVPB 167 mls/hr Q24H LIVIER Administration Propofol 100 mls @ 2.1 mls/hr 06/29/16 00:37 06/29/16 15:39 Diprivan IV 8.4 mls/hr .Q24H PRN Administration TITRATE PER MD ORDER Protocol 5 MCG/KG/MIN Sodium Chloride 1,000 mls @ 100 mls/hr 06/29/16 10:30 06/29/16 11:00 Sodium Chloride 0.9% IV 100 mls/hr .Q10H LIVIER Administration Insulin Human Regular 0 unit 06/29/16 00:00 06/29/16 13:00 Novolin R SC 3 unit Q6 LIVIER Administration Protocol Methylprednisolone 60 mg 06/28/16 14:00 06/29/16 06:25 Solu-Medrol IVP 60 mg Q8 LIVIER Administration Metoprolol Tartrate 25 mg 06/29/16 10:30 06/29/16 13:17 Lopressor PO 25 mg BID LIVIER Administration Montelukast Sodium 10 mg 06/28/16 22:00 06/28/16 22:12 Singulair PO 10 mg HS LIVIER Administration Pantoprazole Sodium 40 mg 06/29/16 12:15 06/29/16 13:18 Protonix Inj IVP 40 mg DAILY LIVIER Administration - Patient Studies Lab Studies: Microbiology Studies 06/29/16 10:19 Gram Stain - Preliminary Trachasp 06/28/16 12:14 MRSA Culture (Admit) - Preliminary Nose MRSA NOT DETECTED 06/28/16 21:11 Urine Culture - Final Urine Gram Negative Richard Lab Studies 06/29/16 06/29/16 06/29/16 Range/Units 12:08 09:02 08:18 WBC (4.8-10.8) K/uL RBC (3.80-5.20) Mil/uL Hgb (11.0-16.0) g/dL Hct (34.0-47.0) % MCV (81.0-99.0) fL MCH (27.0-31.0) pg MCHC (33.0-37.0) g/dL RDW (11.5-14.5) % Plt Count (130-400) K/uL MPV (7.2-11.7) fL Neut % (Auto) (50.0-75.0) % Lymph % (Auto) (20.0-40.0) % Dent % (Auto) (0.0-10.0) % Eos % (Auto) (0.0-4.0) % Baso % (Auto) (0.0-2.0) % Neut # (1.8-7.0) K/uL Lymph # (1.0-4.3) K/uL Dent # (0.0-0.8) K/uL Eos # (0.0-0.7) K/uL Baso # (0.0-0.2) K/uL Neutrophils % (Manual) (50-75) % Band Neutrophils % (0-2) % Lymphocytes % (Manual) Monocytes % (Manual) Platelet Estimate (NORMAL) Polychromasia Hypochromasia (manual) Anisocytosis (manual) Macrocytosis (manual) Tear Drop Cells Haskell Cells PT 57.6 H* D (9.7-12.2) SECONDS INR 4.7 D APTT 53 H D (21-34) SECONDS Puncture Site Lra pCO2 36 (35-45) mm/Hg pO2 79 L (80-100) mm/Hg HCO3 25.3 (21-28) mmol/L ABG pH 7.44 (7.35-7.45) ABG Total CO2 25.6 (22-28) mmol/L ABG O2 Saturation 97.9 (95-98) % ABG Base Excess 0.5 (-2.0-3.0) mmol/L ABG Hemoglobin 10.1 L (11.7-17.4) g/dL ABG Carboxyhemoglobin 1.3 (0.5-1.5) % POC ABG HHb (Measured) 2.1 (0.0-5.0) % ABG Methemoglobin 0.8 (0.0-3.0) % Jasson Test Pos ABG Potassium (3.6-5.2) mmol/L A-a O2 Difference 90.0 mm/Hg Respiratory Index 1.1 Hgb O2 Saturation 95.9 (95.0-98.0) % Glucose (65-105) mg/dl Lactate (0.7-2.1) mmol/L Mechanical Rate 16 FiO2 30.0 % Tidal Volume 500 PEEP 5 Inspiratory BiPAP Expiratory BiPAP Crit Value Called To Crit Value Called By Crit Value Read Back Blood Gas Notified Time Sodium (132-148) mmol/L Potassium (3.6-5.2) mmol/L Chloride (98-107) mmol/L Carbon Dioxide (22-30) mmol/L Anion Gap (10-20) BUN (7-17) mg/dL Creatinine (0.7-1.2) MG/DL Est GFR ( Amer) Est GFR (Non-Af Amer) POC Glucose (mg/dL) 225 H (65-110) mg/dL Random Glucose (65-105) mg/dL Calcium (8.6-10.4) mg/dl Phosphorus (2.5-4.5) mg/dL Magnesium (1.6-2.3) mg/dL Total Bilirubin (0.2-1.3) mg/dL AST (14-36) U/L ALT (9-52) U/L Alkaline Phosphatase (38-126) U/L Total Creatine Kinase (30-135) U/L CK-MB (Mass) (0.0-3.38) ng/mL Troponin I, Quant (0.00-0.120) ng/mL Total Protein (6.3-8.3) g/dL Albumin (3.5-5.0) g/dL Globulin (2.2-3.9) gm/dL Albumin/Globulin Ratio (1.0-2.1) Arterial Blood Potassium (3.6-5.2) mmol/L Urine Color (YELLOW) Urine Clarity (Clear) Urine pH (5.0-8.0) Ur Specific [place] (1.003-1.030) Urine Protein (NEGATIVE) mg/dL Urine Glucose (UA) (Normal) mg/dL Urine Ketones (NEGATIVE) mg/dL Urine Blood (NEGATIVE) Urine Nitrate (NEGATIVE) Urine Bilirubin (NEGATIVE) Urine Urobilinogen (0.2-1.0) mg/dL Ur Leukocyte Esterase (Negative) Héctor/uL Urine WBC (Auto) (0-5) /hpf Urine RBC (Auto) (0-3) /hpf Ur Squamous Epith Cells (0-5) /hpf Urine Bacteria (<OCC) 06/29/16 06/29/16 06/29/16 Range/Units 06:41 06:36 06:16 WBC 13.0 H (4.8-10.8) K/uL RBC 3.61 L (3.80-5.20) Mil/uL Hgb 9.8 L (11.0-16.0) g/dL Hct 32.1 L (34.0-47.0) % MCV 89.0 (81.0-99.0) fL MCH 27.3 (27.0-31.0) pg MCHC 30.7 L (33.0-37.0) g/dL RDW 16.8 H (11.5-14.5) % Plt Count 110 L D (130-400) K/uL MPV 8.9 (7.2-11.7) fL Neut % (Auto) 98.0 H (50.0-75.0) % Lymph % (Auto) 0.9 L (20.0-40.0) % Dent % (Auto) 0.5 (0.0-10.0) % Eos % (Auto) 0.5 (0.0-4.0) % Baso % (Auto) 0.1 (0.0-2.0) % Neut # 12.8 H (1.8-7.0) K/uL Lymph # 0.1 L (1.0-4.3) K/uL Dent # 0.1 (0.0-0.8) K/uL Eos # 0.1 (0.0-0.7) K/uL Baso # 0.0 (0.0-0.2) K/uL Neutrophils % (Manual) 83 H (50-75) % Band Neutrophils % 17 H* (0-2) % Lymphocytes % (Manual) TEST NOT PERFORMED Monocytes % (Manual) TEST NOT PERFORMED Platelet Estimate Slightly decreased L (NORMAL) Polychromasia Slight Hypochromasia (manual) Slight Anisocytosis (manual) Slight Macrocytosis (manual) Slight Tear Drop Cells Slight Nilsa Cells Slight PT (9.7-12.2) SECONDS INR APTT (21-34) SECONDS Puncture Site pCO2 (35-45) mm/Hg pO2 (80-100) mm/Hg HCO3 (21-28) mmol/L ABG pH (7.35-7.45) ABG Total CO2 (22-28) mmol/L ABG O2 Saturation (95-98) % ABG Base Excess (-2.0-3.0) mmol/L ABG Hemoglobin (11.7-17.4) g/dL ABG Carboxyhemoglobin (0.5-1.5) % POC ABG HHb (Measured) (0.0-5.0) % ABG Methemoglobin (0.0-3.0) % Jasson Test ABG Potassium (3.6-5.2) mmol/L A-a O2 Difference mm/Hg Respiratory Index Hgb O2 Saturation (95.0-98.0) % Glucose (65-105) mg/dl Lactate (0.7-2.1) mmol/L Mechanical Rate FiO2 % Tidal Volume PEEP Inspiratory BiPAP Expiratory BiPAP Crit Value Called To Crit Value Called By Crit Value Read Back Blood Gas Notified Time Sodium 135 (132-148) mmol/L Potassium 4.8 (3.6-5.2) mmol/L Chloride 97 L (98-107) mmol/L Carbon Dioxide 25 (22-30) mmol/L Anion Gap 18 (10-20) BUN 41 H (7-17) mg/dL Creatinine 2.4 H (0.7-1.2) MG/DL Est GFR ( Amer) 24 Est GFR (Non-Af Amer) 20 POC Glucose (mg/dL) 278 H (65-110) mg/dL Random Glucose 276 H (65-105) mg/dL Calcium 8.1 L (8.6-10.4) mg/dl Phosphorus 4.4 (2.5-4.5) mg/dL Magnesium 2.4 H (1.6-2.3) mg/dL Total Bilirubin 0.3 (0.2-1.3) mg/dL AST 28 (14-36) U/L ALT 36 (9-52) U/L Alkaline Phosphatase 141 H (38-126) U/L Total Creatine Kinase (30-135) U/L CK-MB (Mass) (0.0-3.38) ng/mL Troponin I, Quant (0.00-0.120) ng/mL Total Protein 6.2 L (6.3-8.3) g/dL Albumin 3.1 L (3.5-5.0) g/dL Globulin 3.0 (2.2-3.9) gm/dL Albumin/Globulin Ratio 1.0 (1.0-2.1) Arterial Blood Potassium (3.6-5.2) mmol/L Urine Color (YELLOW) Urine Clarity (Clear) Urine pH (5.0-8.0) Ur Specific [place] (1.003-1.030) Urine Protein (NEGATIVE) mg/dL Urine Glucose (UA) (Normal) mg/dL Urine Ketones (NEGATIVE) mg/dL Urine Blood (NEGATIVE) Urine Nitrate (NEGATIVE) Urine Bilirubin (NEGATIVE) Urine Urobilinogen (0.2-1.0) mg/dL Ur Leukocyte Esterase (Negative) Héctor/uL Urine WBC (Auto) (0-5) /hpf Urine RBC (Auto) (0-3) /hpf Ur Squamous Epith Cells (0-5) /hpf Urine Bacteria (<OCC) 06/29/16 06/29/16 06/29/16 Range/Units 02:22 00:12 00:02 WBC (4.8-10.8) K/uL RBC (3.80-5.20) Mil/uL Hgb (11.0-16.0) g/dL Hct (34.0-47.0) % MCV (81.0-99.0) fL MCH (27.0-31.0) pg MCHC (33.0-37.0) g/dL RDW (11.5-14.5) % Plt Count (130-400) K/uL MPV (7.2-11.7) fL Neut % (Auto) (50.0-75.0) % Lymph % (Auto) (20.0-40.0) % Dent % (Auto) (0.0-10.0) % Eos % (Auto) (0.0-4.0) % Baso % (Auto) (0.0-2.0) % Neut # (1.8-7.0) K/uL Lymph # (1.0-4.3) K/uL Dent # (0.0-0.8) K/uL Eos # (0.0-0.7) K/uL Baso # (0.0-0.2) K/uL Neutrophils % (Manual) (50-75) % Band Neutrophils % (0-2) % Lymphocytes % (Manual) Monocytes % (Manual) Platelet Estimate (NORMAL) Polychromasia Hypochromasia (manual) Anisocytosis (manual) Macrocytosis (manual) Tear Drop Cells Nilsa Cells PT (9.7-12.2) SECONDS INR APTT (21-34) SECONDS Puncture Site Rb pCO2 53 H (35-45) mm/Hg pO2 82 (80-100) mm/Hg HCO3 21.5 (21-28) mmol/L ABG pH 7.25 L (7.35-7.45) ABG Total CO2 24.8 (22-28) mmol/L ABG O2 Saturation 97.1 (95-98) % ABG Base Excess -4.3 L (-2.0-3.0) mmol/L ABG Hemoglobin 10.4 L (11.7-17.4) g/dL ABG Carboxyhemoglobin 1.3 (0.5-1.5) % POC ABG HHb (Measured) 2.8 (0.0-5.0) % ABG Methemoglobin 0.9 (0.0-3.0) % Jasson Test Na ABG Potassium (3.6-5.2) mmol/L A-a O2 Difference 66.0 mm/Hg Respiratory Index 0.8 Hgb O2 Saturation 95.0 (95.0-98.0) % Glucose (65-105) mg/dl Lactate (0.7-2.1) mmol/L Mechanical Rate 16 FiO2 30.0 % Tidal Volume 500 PEEP 5 Inspiratory BiPAP Expiratory BiPAP Crit Value Called To Crit Value Called By Crit Value Read Back Blood Gas Notified Time Sodium (132-148) mmol/L Potassium (3.6-5.2) mmol/L Chloride (98-107) mmol/L Carbon Dioxide (22-30) mmol/L Anion Gap (10-20) BUN (7-17) mg/dL Creatinine (0.7-1.2) MG/DL Est GFR ( Amer) Est GFR (Non-Af Amer) POC Glucose (mg/dL) 489 H* (65-110) mg/dL Random Glucose (65-105) mg/dL Calcium (8.6-10.4) mg/dl Phosphorus (2.5-4.5) mg/dL Magnesium (1.6-2.3) mg/dL Total Bilirubin (0.2-1.3) mg/dL AST (14-36) U/L ALT (9-52) U/L Alkaline Phosphatase (38-126) U/L Total Creatine Kinase 226 H (30-135) U/L CK-MB (Mass) 3.71 H (0.0-3.38) ng/mL Troponin I, Quant 0.3840 H* (0.00-0.120) ng/mL Total Protein (6.3-8.3) g/dL Albumin (3.5-5.0) g/dL Globulin (2.2-3.9) gm/dL Albumin/Globulin Ratio (1.0-2.1) Arterial Blood Potassium (3.6-5.2) mmol/L Urine Color (YELLOW) Urine Clarity (Clear) Urine pH (5.0-8.0) Ur Specific [place] (1.003-1.030) Urine Protein (NEGATIVE) mg/dL Urine Glucose (UA) (Normal) mg/dL Urine Ketones (NEGATIVE) mg/dL Urine Blood (NEGATIVE) Urine Nitrate (NEGATIVE) Urine Bilirubin (NEGATIVE) Urine Urobilinogen (0.2-1.0) mg/dL Ur Leukocyte Esterase (Negative) Héctor/uL Urine WBC (Auto) (0-5) /hpf Urine RBC (Auto) (0-3) /hpf Ur Squamous Epith Cells (0-5) /hpf Urine Bacteria (<OCC) 06/28/16 06/28/16 06/28/16 Range/Units 23:49 21:11 19:17 WBC (4.8-10.8) K/uL RBC (3.80-5.20) Mil/uL Hgb (11.0-16.0) g/dL Hct (34.0-47.0) % MCV (81.0-99.0) fL MCH (27.0-31.0) pg MCHC (33.0-37.0) g/dL RDW (11.5-14.5) % Plt Count (130-400) K/uL MPV (7.2-11.7) fL Neut % (Auto) (50.0-75.0) % Lymph % (Auto) (20.0-40.0) % Dent % (Auto) (0.0-10.0) % Eos % (Auto) (0.0-4.0) % Baso % (Auto) (0.0-2.0) % Neut # (1.8-7.0) K/uL Lymph # (1.0-4.3) K/uL Dent # (0.0-0.8) K/uL Eos # (0.0-0.7) K/uL Baso # (0.0-0.2) K/uL Neutrophils % (Manual) (50-75) % Band Neutrophils % (0-2) % Lymphocytes % (Manual) Monocytes % (Manual) Platelet Estimate (NORMAL) Polychromasia Hypochromasia (manual) Anisocytosis (manual) Macrocytosis (manual) Tear Drop Cells Haskell Cells PT (9.7-12.2) SECONDS INR APTT (21-34) SECONDS Puncture Site Rr Rra pCO2 59 H 58 H (35-45) mm/Hg pO2 116 H 104 H (80-100) mm/Hg HCO3 22.3 21.7 (21-28) mmol/L ABG pH 7.23 L 7.23 L (7.35-7.45) ABG Total CO2 26.5 26.1 (22-28) mmol/L ABG O2 Saturation 99.0 H 98.8 H (95-98) % ABG Base Excess -3.4 L -4.1 L (-2.0-3.0) mmol/L ABG Hemoglobin 10.6 L (11.7-17.4) g/dL ABG Carboxyhemoglobin 1.4 (0.5-1.5) % POC ABG HHb (Measured) 1.0 (0.0-5.0) % ABG Methemoglobin 0.7 (0.0-3.0) % Jasson Test Pos Na ABG Potassium 5.3 H (3.6-5.2) mmol/L A-a O2 Difference 60.0 73.0 mm/Hg Respiratory Index 0.5 0.7 Hgb O2 Saturation 96.9 (95.0-98.0) % Glucose 414 H* D (65-105) mg/dl Lactate 1.7 (0.7-2.1) mmol/L Mechanical Rate FiO2 35.0 35.0 % Tidal Volume PEEP Inspiratory BiPAP 14 14 Expiratory BiPAP 6 6 Crit Value Called To Mack santana Crit Value Called By Elva Crit Value Read Back Y Blood Gas Notified Time 1919 Sodium 132.0 (132-148) mmol/L Potassium (3.6-5.2) mmol/L Chloride 100.0 (98-107) mmol/L Carbon Dioxide (22-30) mmol/L Anion Gap (10-20) BUN (7-17) mg/dL Creatinine (0.7-1.2) MG/DL Est GFR ( Amer) Est GFR (Non-Af Amer) POC Glucose (mg/dL) (65-110) mg/dL Random Glucose (65-105) mg/dL Calcium (8.6-10.4) mg/dl Phosphorus (2.5-4.5) mg/dL Magnesium (1.6-2.3) mg/dL Total Bilirubin (0.2-1.3) mg/dL AST (14-36) U/L ALT (9-52) U/L Alkaline Phosphatase (38-126) U/L Total Creatine Kinase (30-135) U/L CK-MB (Mass) (0.0-3.38) ng/mL Troponin I, Quant (0.00-0.120) ng/mL Total Protein (6.3-8.3) g/dL Albumin (3.5-5.0) g/dL Globulin (2.2-3.9) gm/dL Albumin/Globulin Ratio (1.0-2.1) Arterial Blood Potassium 5.3 H (3.6-5.2) mmol/L Urine Color Yellow (YELLOW) Urine Clarity Hazy (Clear) Urine pH 5.0 (5.0-8.0) Ur Specific [place] 1.008 (1.003-1.030) Urine Protein 2+ H (NEGATIVE) mg/dL Urine Glucose (UA) 3+ H (Normal) mg/dL Urine Ketones Negative (NEGATIVE) mg/dL Urine Blood 3+ H (NEGATIVE) Urine Nitrate Negative (NEGATIVE) Urine Bilirubin Negative (NEGATIVE) Urine Urobilinogen Normal (0.2-1.0) mg/dL Ur Leukocyte Esterase Neg (Negative) Héctor/uL Urine WBC (Auto) 1 (0-5) /hpf Urine RBC (Auto) 54 H (0-3) /hpf Ur Squamous Epith Cells 1 (0-5) /hpf Urine Bacteria Occ H (<OCC) Laboratory Results - last 24 hr 06/28/16 06/28/16 06/28/16 19:17 21:11 23:49 WBC RBC Hgb Hct MCV MCH MCHC RDW Plt Count MPV Neut % (Auto) Lymph % (Auto) Dent % (Auto) Eos % (Auto) Baso % (Auto) Neut # Lymph # Dent # Eos # Baso # Neutrophils % (Manual) Band Neutrophils % Lymphocytes % (Manual) Monocytes % (Manual) Platelet Estimate Polychromasia Hypochromasia (manual) Anisocytosis (manual) Macrocytosis (manual) Tear Drop Cells Haskell Cells PT INR APTT Puncture Site Rra Rr pCO2 58 H 59 H pO2 104 H 116 H HCO3 21.7 22.3 ABG pH 7.23 L 7.23 L ABG Total CO2 26.1 26.5 ABG O2 Saturation 98.8 H 99.0 H ABG Base Excess -4.1 L -3.4 L ABG Hemoglobin 10.6 L ABG Carboxyhemoglobin 1.4 POC ABG HHb (Measured) 1.0 ABG Methemoglobin 0.7 Jasson Test Na Pos ABG Potassium 5.3 H A-a O2 Difference 73.0 60.0 Respiratory Index 0.7 0.5 Hgb O2 Saturation 96.9 Sodium 132.0 Chloride 100.0 Glucose 414 H* D Lactate 1.7 Mechanical Rate FiO2 35.0 35.0 Tidal Volume PEEP Inspiratory BiPAP 14 14 Expiratory BiPAP 6 6 Crit Value Called To Mack santana Crit Value Called By Elva Crit Value Read Back Y Blood Gas Notified Time 1919 Potassium Carbon Dioxide Anion Gap BUN Creatinine Est GFR ( Amer) Est GFR (Non-Af Amer) POC Glucose (mg/dL) Random Glucose Calcium Phosphorus Magnesium Total Bilirubin AST ALT Alkaline Phosphatase Total Creatine Kinase CK-MB (Mass) Troponin I, Quant Total Protein Albumin Globulin Albumin/Globulin Ratio Arterial Blood Potassium 5.3 H Urine Color Yellow Urine Clarity Hazy Urine pH 5.0 Ur Specific [place] 1.008 Urine Protein 2+ H Urine Glucose (UA) 3+ H Urine Ketones Negative Urine Blood 3+ H Urine Nitrate Negative Urine Bilirubin Negative Urine Urobilinogen Normal Ur Leukocyte Esterase Neg Urine WBC (Auto) 1 Urine RBC (Auto) 54 H Ur Squamous Epith Cells 1 Urine Bacteria Occ H 06/29/16 06/29/16 06/29/16 00:02 00:12 02:22 WBC RBC Hgb Hct MCV MCH MCHC RDW Plt Count MPV Neut % (Auto) Lymph % (Auto) Dent % (Auto) Eos % (Auto) Baso % (Auto) Neut # Lymph # Dent # Eos # Baso # Neutrophils % (Manual) Band Neutrophils % Lymphocytes % (Manual) Monocytes % (Manual) Platelet Estimate Polychromasia Hypochromasia (manual) Anisocytosis (manual) Macrocytosis (manual) Tear Drop Cells [place] Cells PT INR APTT Puncture Site Rb pCO2 53 H pO2 82 HCO3 21.5 ABG pH 7.25 L ABG Total CO2 24.8 ABG O2 Saturation 97.1 ABG Base Excess -4.3 L ABG Hemoglobin 10.4 L ABG Carboxyhemoglobin 1.3 POC ABG HHb (Measured) 2.8 ABG Methemoglobin 0.9 Jasson Test Na ABG Potassium A-a O2 Difference 66.0 Respiratory Index 0.8 Hgb O2 Saturation 95.0 Sodium Chloride Glucose Lactate Mechanical Rate 16 FiO2 30.0 Tidal Volume 500 PEEP 5 Inspiratory BiPAP Expiratory BiPAP Crit Value Called To Crit Value Called By Crit Value Read Back Blood Gas Notified Time Potassium Carbon Dioxide Anion Gap BUN Creatinine Est GFR ( Amer) Est GFR (Non-Af Amer) POC Glucose (mg/dL) 489 H* Random Glucose Calcium Phosphorus Magnesium Total Bilirubin AST ALT Alkaline Phosphatase Total Creatine Kinase 226 H CK-MB (Mass) 3.71 H Troponin I, Quant 0.3840 H* Total Protein Albumin Globulin Albumin/Globulin Ratio Arterial Blood Potassium Urine Color Urine Clarity Urine pH Ur Specific [place] Urine Protein Urine Glucose (UA) Urine Ketones Urine Blood Urine Nitrate Urine Bilirubin Urine Urobilinogen Ur Leukocyte Esterase Urine WBC (Auto) Urine RBC (Auto) Ur Squamous Epith Cells Urine Bacteria 06/29/16 06/29/16 06/29/16 06:16 06:36 06:41 WBC 13.0 H RBC 3.61 L Hgb 9.8 L Hct 32.1 L MCV 89.0 MCH 27.3 MCHC 30.7 L RDW 16.8 H Plt Count 110 L D MPV 8.9 Neut % (Auto) 98.0 H Lymph % (Auto) 0.9 L Dent % (Auto) 0.5 Eos % (Auto) 0.5 Baso % (Auto) 0.1 Neut # 12.8 H Lymph # 0.1 L Dent # 0.1 Eos # 0.1 Baso # 0.0 Neutrophils % (Manual) 83 H Band Neutrophils % 17 H* Lymphocytes % (Manual) TEST NOT PERFORMED Monocytes % (Manual) TEST NOT PERFORMED Platelet Estimate Slightly decreased L Polychromasia Slight Hypochromasia (manual) Slight Anisocytosis (manual) Slight Macrocytosis (manual) Slight Tear Drop Cells Slight [place] Cells Slight PT INR APTT Puncture Site pCO2 pO2 HCO3 ABG pH ABG Total CO2 ABG O2 Saturation ABG Base Excess ABG Hemoglobin ABG Carboxyhemoglobin POC ABG HHb (Measured) ABG Methemoglobin Jasson Test ABG Potassium A-a O2 Difference Respiratory Index Hgb O2 Saturation Sodium 135 Chloride 97 L Glucose Lactate Mechanical Rate FiO2 Tidal Volume PEEP Inspiratory BiPAP Expiratory BiPAP Crit Value Called To Crit Value Called By Crit Value Read Back Blood Gas Notified Time Potassium 4.8 Carbon Dioxide 25 Anion Gap 18 BUN 41 H Creatinine 2.4 H Est GFR ( Amer) 24 Est GFR (Non-Af Amer) 20 POC Glucose (mg/dL) 278 H Random Glucose 276 H Calcium 8.1 L Phosphorus 4.4 Magnesium 2.4 H Total Bilirubin 0.3 AST 28 ALT 36 Alkaline Phosphatase 141 H Total Creatine Kinase CK-MB (Mass) Troponin I, Quant Total Protein 6.2 L Albumin 3.1 L Globulin 3.0 Albumin/Globulin Ratio 1.0 Arterial Blood Potassium Urine Color Urine Clarity Urine pH Ur Specific [place] Urine Protein Urine Glucose (UA) Urine Ketones Urine Blood Urine Nitrate Urine Bilirubin Urine Urobilinogen Ur Leukocyte Esterase Urine WBC (Auto) Urine RBC (Auto) Ur Squamous Epith Cells Urine Bacteria 06/29/16 06/29/16 06/29/16 08:18 09:02 12:08 WBC RBC Hgb Hct MCV MCH MCHC RDW Plt Count MPV Neut % (Auto) Lymph % (Auto) [place] % (Auto) Eos % (Auto) Baso % (Auto) Neut # Lymph # Dent # Eos # Baso # Neutrophils % (Manual) Band Neutrophils % Lymphocytes % (Manual) Monocytes % (Manual) Platelet Estimate Polychromasia Hypochromasia (manual) Anisocytosis (manual) Macrocytosis (manual) Tear Drop Cells [place] Cells PT 57.6 H* D INR 4.7 D APTT 53 H D Puncture Site Lra pCO2 36 pO2 79 L HCO3 25.3 ABG pH 7.44 ABG Total CO2 25.6 ABG O2 Saturation 97.9 ABG Base Excess 0.5 ABG Hemoglobin 10.1 L ABG Carboxyhemoglobin 1.3 POC ABG HHb (Measured) 2.1 ABG Methemoglobin 0.8 Jasson Test Pos ABG Potassium A-a O2 Difference 90.0 Respiratory Index 1.1 Hgb O2 Saturation 95.9 Sodium Chloride Glucose Lactate Mechanical Rate 16 FiO2 30.0 Tidal Volume 500 PEEP 5 Inspiratory BiPAP Expiratory BiPAP Crit Value Called To Crit Value Called By Crit Value Read Back Blood Gas Notified Time Potassium Carbon Dioxide Anion Gap BUN Creatinine Est GFR ( Amer) Est GFR (Non-Af Amer) POC Glucose (mg/dL) 225 H Random Glucose Calcium Phosphorus Magnesium Total Bilirubin AST ALT Alkaline Phosphatase Total Creatine Kinase CK-MB (Mass) Troponin I, Quant Total Protein Albumin Globulin Albumin/Globulin Ratio Arterial Blood Potassium Urine Color Urine Clarity Urine pH Ur Specific [place] Urine Protein Urine Glucose (UA) Urine Ketones Urine Blood Urine Nitrate Urine Bilirubin Urine Urobilinogen Ur Leukocyte Esterase Urine WBC (Auto) Urine RBC (Auto) Ur Squamous Epith Cells Urine Bacteria Critical Care Progress Note - Nutrition Nutrition: Nutrition Category Date Time Status NPO Diet [DIET] Diets 06/28/16 Dinner Active Assessment/Plan (1) COPD exacerbation Current Visit: No Status: Acute (2) Lung cancer Current Visit: No Status: Acute (3) Pulmonary embolism Current Visit: No Status: Acute Attending/Attestation - Attestation I have personally seen and examined this patient.: Yes I have fully participated in the care of the patient.: Yes I have reviewed all pertinent clinical information: Yes Notes (Text): 06/29/16 17:42 Patient is still on ventilator. Oxygenation is better. Still showing evidence of tightness in the lungs. Wheezing noted. Sedated, on ventilator 06/29/16 17:42 Continue to monitor the patient. Possible weaning process in 1 or 2 days.
[2016-06-30] MEDS: (Novolin R) Insulin Human Regular 100 units/ml vial SC SCH ×3 (00:46→17:51)
[2016-06-30] MEDS: Albuterol-Ipratrop 3 mg / 0.5 (3 ml) UD INH SCH ×4 (01:26→19:38)
[2016-06-30 05:15] LABS: ABG ALLEN TEST POS; ABG MECHANICAL RATE 16; ARTERIAL BLOOD HGB O2 SAT 95.7 % (95.0-98.0); ATERIAL BLOOD GAS PEEP 5; CARBOXYHEMOGLOBIN 1.4 % (0.5-1.5); DRAW SITE RR; METHEMOGLOBIN 0.8 % (0.0-3.0)
[2016-06-30] MEDS: MethylPREDNISolone 40 mg Vial IVP SCH ×3 (06:27→23:05)
[2016-06-30 06:41] LABS: EOS % 0.1 % (0.0-4.0); HEMATOCRIT 28.3 % (34.0-47.0); LYMPH # 0.1 K/uL (1.0-4.3); LYMPH % 1.1 % (20.0-40.0); MEAN CELL VOLUME 88.1 fL (81.0-99.0); MEAN CORPUSCULAR HGB CONC 31.8 g/dL (33.0-37.0); MEAN PLATELET VOLUME 9.3 fL (7.2-11.7); MONO # 0.1 K/uL (0.0-0.8); MONO % 1.6 % (0.0-10.0); NRBC % 0.2 % (0.0-2.0); PLATELET COUNT 77 K/uL (130-400); RED CELL DISTRIBUTION WIDTH 16.7 % (11.5-14.5); WHITE BLOOD COUNT 8.5 K/uL (4.8-10.8)
[2016-06-30 06:47] LABS: POTASSIUM 3.1 mmol/L (3.6-5.2)
[2016-06-30 06:49] LABS: BILIRUBIN,TOTAL 0.6 mg/dL (0.2-1.3); TOTAL PROTEIN 5.5 g/dL (6.3-8.3)
[2016-06-30 06:50] LABS: CALCIUM 7.2 mg/dl (8.6-10.4); PHOSPHOROUS 4.6 mg/dL (2.5-4.5)
[2016-06-30] MEDS ORDERED: Potassium Chloride 20 mEq 100 ML IVPB ONE (07:58)
--- NOTE | 2016-06-30 08:00 | CARD ---
APPROVED REPORT EKG Measurement Heart [id number] KS 136P [id number] <Conclusion> Sinus tachycardia Otherwise normal ECG
--- NOTE | 2016-06-30 08:19 | HP ---
HISTORY OF PRESENT ILLNESS: This patient is 70 year-old female with history of CA of the lung and hy dronephrosis. The patient was brought to the Emergency Room by EMS because the patient had a sudden onset of shortness of breath. In the ER, the patient has received ____ oxygen BiPAP and the patient is somewhat. The patient also received other medications and ICU consult was done by Dr. Brian brdaford, and the patient was admitted this morning. The patient was intubated because of worsening ____ _ failure. ALLERGIES: The patient has No Known allergies. PAST MEDICAL HISTORY: History of , history of CA of the lung, , pulmonary embolism, COPD, hydronephrosis, kidney stones, diabetes, and hyperlipidemia. SOCIAL HISTORY: The patient has history of smoking, but has stopped for the past several years, sinc e having lung CA. FAMILY HISTORY: No inherited disease. REVIEW OF SYSTEMS: Cannot be now but patient being on respirator, and the patient is somewhat sedated. PHYSICAL EXAMINATION: GENERAL: The patient is intubated and this morning was on FIO2 at 20%. LUNGS: Some crackles noted. No wheezing. HEART: Somewhat tachycardic. ABDOMEN: Soft, but positive bowel sounds. Bilateral hydronephrosis. EXTREMITIES: No edema. The patient has an x-ray. The chest x-ray has shown Diffuse increased interstitial marking and nodul ar density mass seen more laterally in the right lung, as well as superior to the mass in the right s uprahilar region. also of , and also the patient had lab on admission WBC at 28,000, hemo globin 11.3, hematocrit 27.5, platelet was 194. sodium 135, potassium 4.8, chloride 97, bicarb 25, BUN 41, creatinine 2.4, glucose 276. Troponin 0.38. Total Protein 6.2, albumin 3.1, Globulin 3 , DIAGNOSES: 1. failure. 2. Ammonia. 3. CA of the lung. 4. Cardiac arrhythmia. 5. Pulmonary embolism. 6. 7. Bilateral hydronephrosis. 8. Chronic renal failure as I mentioned. 9. Chronic obstructive pulmonary disease. So patient, as I mentioned, is intubated and admitted to ICU. The case was reviewed and discussed wi dermatology sales representative Dr. Giron this morning. Isak Mark MD cc: [id number] TT: 06/29/2016 22:23:34 ak 06/30/2016 07:18:18
[2016-06-30 08:23] LABS: NEUTROPHIL 81 % (50-75); TOTAL CELLS COUNTED 100
[2016-06-30] MEDS: Sodium Chloride 0.9% 1,000 ML IV SCH ×2 (08:32→23:01)
--- NOTE | 2016-06-30 08:53 | RAD ---
PROCEDURE: CHEST RADIOGRAPH, 1 VIEW HISTORY: intubated COMPARISON: 06/29/2016 FINDINGS: LUNGS: Lines and tubes stable position. Persistent large right suprahilar mass. Biapical pleural thickening with upper lobe granulomatous changes. Linear atelectasis in the left midlung zone. PLEURA: As above. CARDIOVASCULAR: Normal. OSSEOUS STRUCTURES: No significant abnormalities. VISUALIZED UPPER ABDOMEN: Normal. OTHER FINDINGS: None. IMPRESSION: No significant interval change.
[2016-06-30] MEDS: Moxifloxacin IV 400mg/250ml NS 250 ML IVPB SCH (09:32)
--- NOTE | 2016-06-30 13:06 | CP.CCUPN ---
<LaurenLa - Last Filed: 06/30/16 15:55> CCU Subjective - Physician Review Subjective (Free Text): Patient was seen and examined at bedside. Patient is currently intubated. ROS unobtainable due to patient's condition. Patient's sister, Jannet Fried, is the decision maker while pt is intubated. CCU Objective - Vital Signs / Intake & Output Vital Signs (Last 4 hours): Vital Signs Pulse Resp BP Pulse Ox 06/30/16 11:00 106 H 17 116/74 100 06/30/16 10:00 104 H 16 118/75 100 06/30/16 09:35 118/76 Intake and Output (Last 8hrs): Intake & Output 06/29/16 06/30/16 06/30/16 22:59 06:59 14:59 Intake Total 1167.0 1079.6 684.4 Output Total 375 850 Balance 792.0 229.6 684.4 Weight 155 lb Intake: Intake, IV Amount 877.0 899.6 534.4 Right Port-A-Cath 77.0 99.6 34.4 Right Distal Port 800 800 500 Tube Feeding 140 180 150 Other 150 Output: Urine 375 850 2-way Urethral 375 850 Other: # Bowel Movements 0 1 0 - Physical Exam Head: Positive for: Atraumatic, Normocephalic Pupils: Positive for: PERRL Extroacular Muscles: Positive for: EOMI Mouth: Positive for: Moist Mucous Membranes Respiratory/Chest: Positive for: Rhonchi, Other (pt intubated) Cardiovascular: Positive for: Normal S1, S2, Tachycardic Abdomen: Positive for: Normal Bowel Sounds. Negative for: Distention Genitourinary/Pelvic Exam: Positive for: Other (lyon catheter in place, draining clear urine) Upper Extremity: Positive for: Normal Inspection Lower Extremity: Positive for: Normal Inspection Neurological: Positive for: Other (pt intubated and sedated) Skin: Positive for: Warm, Dry Psychiatric: Positive for: Other (pt intubated and sedated) - Medications Active Medications: Active Medications Generic Name Dose Route Start Last Admin Trade Name Freq PRN Reason Stop Dose Admin Albuterol/Ipratropium 3 ml 06/28/16 14:00 06/30/16 07:56 Duoneb 3 Mg/0.5 Mg (3 Ml) Ud INH 3 ml RQ6 LIVIER Administration Moxifloxacin HCl 250 mls @ 167 mls/hr 06/29/16 10:00 06/30/16 09:32 Avelox Iv 400mg/250ml Ns IVPB 167 mls/hr Q24H LIVIER Administration Propofol 100 mls @ 2.1 mls/hr 06/29/16 00:37 06/30/16 09:40 Diprivan IV 8.4 mls/hr .Q24H PRN Administration TITRATE PER MD ORDER Protocol 5 MCG/KG/MIN Sodium Chloride 1,000 mls @ 100 mls/hr 06/29/16 10:30 06/30/16 08:32 Sodium Chloride 0.9% IV 100 mls/hr .Q10H LIVIER Administration Imipenem/Cilastatin Sodium 250 100 mls @ 100 mls/hr 06/30/16 11:00 mg/ Sodium Chloride IVPB Q6H LIVIER Insulin Human Regular 0 unit 06/29/16 00:00 06/30/16 06:26 Novolin R SC 4 unit Q6 LIVIER Administration Protocol Methylprednisolone 60 mg 06/28/16 14:00 06/30/16 06:27 Solu-Medrol IVP 60 mg Q8 LIVIER Administration Metoprolol Tartrate 25 mg 06/29/16 10:30 06/30/16 09:35 Lopressor PO 25 mg BID LIVIER Administration Montelukast Sodium 10 mg 06/28/16 22:00 06/29/16 22:08 Singulair PO 10 mg HS LIVIER Administration Pantoprazole Sodium 40 mg 06/29/16 12:15 06/30/16 09:35 Protonix Inj IVP 40 mg DAILY LIVIER Administration - Patient Studies Lab Studies: Microbiology Studies 06/28/16 12:14 MRSA Culture (Admit) - Final Nose MRSA NOT DETECTED 06/29/16 10:19 Gram Stain - Preliminary Trachasp 06/28/16 21:11 Urine Culture - Final Urine Gram Negative Richard Lab Studies 06/30/16 06/30/16 06/30/16 Range/Units 11:34 06:35 06:25 WBC 8.5 (4.8-10.8) K/uL RBC 3.21 L (3.80-5.20) Mil/uL Hgb 9.0 L (11.0-16.0) g/dL Hct 28.3 L (34.0-47.0) % MCV 88.1 (81.0-99.0) fL MCH 28.0 (27.0-31.0) pg MCHC 31.8 L (33.0-37.0) g/dL RDW 16.7 H (11.5-14.5) % Plt Count 77 L D (130-400) K/uL MPV 9.3 (7.2-11.7) fL Neut % (Auto) 97.2 H (50.0-75.0) % Lymph % (Auto) 1.1 L (20.0-40.0) % [place] % (Auto) 1.6 (0.0-10.0) % Eos % (Auto) 0.1 (0.0-4.0) % Baso % (Auto) 0.0 (0.0-2.0) % Neut # 8.3 H (1.8-7.0) K/uL Lymph # 0.1 L (1.0-4.3) K/uL [place] # 0.1 (0.0-0.8) K/uL Eos # 0.0 (0.0-0.7) K/uL Baso # 0.0 (0.0-0.2) K/uL Neutrophils % (Manual) 81 H (50-75) % Band Neutrophils % 16 H* (0-2) % Lymphocytes % (Manual) 2 L (20-40) % Monocytes % (Manual) 1 (0-10) % Platelet Estimate Decreased L (NORMAL) Polychromasia Slight Hypochromasia (manual) Slight Anisocytosis (manual) Slight Microcytosis (manual) Slight Tear Drop Cells Slight Puncture Site pCO2 (35-45) mm/Hg pO2 (80-100) mm/Hg HCO3 (21-28) mmol/L ABG pH (7.35-7.45) ABG Total CO2 (22-28) mmol/L ABG O2 Saturation (95-98) % ABG Base Excess (-2.0-3.0) mmol/L ABG Hemoglobin (11.7-17.4) g/dL ABG Carboxyhemoglobin (0.5-1.5) % POC ABG HHb (Measured) (0.0-5.0) % ABG Methemoglobin (0.0-3.0) % Jasson Test A-a O2 Difference mm/Hg Respiratory Index Hgb O2 Saturation (95.0-98.0) % Mechanical Rate FiO2 % Tidal Volume PEEP Sodium (132-148) mmol/L Potassium (3.6-5.2) mmol/L Chloride (98-107) mmol/L Carbon Dioxide (22-30) mmol/L Anion Gap (10-20) BUN (7-17) mg/dL Creatinine (0.7-1.2) MG/DL Est GFR ( Amer) Est GFR (Non-Af Amer) POC Glucose (mg/dL) 331 H 283 H (65-110) mg/dL Random Glucose (65-105) mg/dL Calcium (8.6-10.4) mg/dl Phosphorus (2.5-4.5) mg/dL Magnesium (1.6-2.3) mg/dL Total Bilirubin (0.2-1.3) mg/dL AST (14-36) U/L ALT (9-52) U/L Alkaline Phosphatase (38-126) U/L Total Protein (6.3-8.3) g/dL Albumin (3.5-5.0) g/dL Globulin (2.2-3.9) gm/dL Albumin/Globulin Ratio (1.0-2.1) 06/30/16 06/30/16 06/29/16 Range/Units 05:07 04:00 23:53 WBC (4.8-10.8) K/uL RBC (3.80-5.20) Mil/uL Hgb (11.0-16.0) g/dL Hct (34.0-47.0) % MCV (81.0-99.0) fL MCH (27.0-31.0) pg MCHC (33.0-37.0) g/dL RDW (11.5-14.5) % Plt Count (130-400) K/uL MPV (7.2-11.7) fL Neut % (Auto) (50.0-75.0) % Lymph % (Auto) (20.0-40.0) % [place] % (Auto) (0.0-10.0) % Eos % (Auto) (0.0-4.0) % Baso % (Auto) (0.0-2.0) % Neut # (1.8-7.0) K/uL Lymph # (1.0-4.3) K/uL [place] # (0.0-0.8) K/uL Eos # (0.0-0.7) K/uL Baso # (0.0-0.2) K/uL Neutrophils % (Manual) (50-75) % Band Neutrophils % (0-2) % Lymphocytes % (Manual) (20-40) % Monocytes % (Manual) (0-10) % Platelet Estimate (NORMAL) Polychromasia Hypochromasia (manual) Anisocytosis (manual) Microcytosis (manual) Tear Drop Cells Puncture Site Rr pCO2 46 H (35-45) mm/Hg pO2 92 (80-100) mm/Hg HCO3 25.7 (21-28) mmol/L ABG pH 7.37 (7.35-7.45) ABG Total CO2 28.0 (22-28) mmol/L ABG O2 Saturation 98.0 (95-98) % ABG Base Excess 1.0 (-2.0-3.0) mmol/L ABG Hemoglobin 9.2 L (11.7-17.4) g/dL ABG Carboxyhemoglobin 1.4 (0.5-1.5) % POC ABG HHb (Measured) 2.0 (0.0-5.0) % ABG Methemoglobin 0.8 (0.0-3.0) % Jasson Test Pos A-a O2 Difference 64.0 mm/Hg Respiratory Index 0.7 Hgb O2 Saturation 95.7 (95.0-98.0) % Mechanical Rate 16 FiO2 30.0 % Tidal Volume 500 PEEP 5 Sodium 137 (132-148) mmol/L Potassium 3.1 L (3.6-5.2) mmol/L Chloride 100 (98-107) mmol/L Carbon Dioxide 28 (22-30) mmol/L Anion Gap 12 (10-20) BUN 38 H (7-17) mg/dL Creatinine 1.9 H (0.7-1.2) MG/DL Est GFR ( Amer) 32 Est GFR (Non-Af Amer) 26 POC Glucose (mg/dL) 283 H (65-110) mg/dL Random Glucose 268 H (65-105) mg/dL Calcium 7.2 L (8.6-10.4) mg/dl Phosphorus 4.6 H (2.5-4.5) mg/dL Magnesium 2.0 (1.6-2.3) mg/dL Total Bilirubin 0.6 (0.2-1.3) mg/dL AST 24 (14-36) U/L ALT 39 (9-52) U/L Alkaline Phosphatase 122 (38-126) U/L Total Protein 5.5 L (6.3-8.3) g/dL Albumin 2.7 L (3.5-5.0) g/dL Globulin 2.8 (2.2-3.9) gm/dL Albumin/Globulin Ratio 1.0 (1.0-2.1) 06/29/16 Range/Units 18:18 WBC (4.8-10.8) K/uL RBC (3.80-5.20) Mil/uL Hgb (11.0-16.0) g/dL Hct (34.0-47.0) % MCV (81.0-99.0) fL MCH (27.0-31.0) pg MCHC (33.0-37.0) g/dL RDW (11.5-14.5) % Plt Count (130-400) K/uL MPV (7.2-11.7) fL Neut % (Auto) (50.0-75.0) % Lymph % (Auto) (20.0-40.0) % [place] % (Auto) (0.0-10.0) % Eos % (Auto) (0.0-4.0) % Baso % (Auto) (0.0-2.0) % Neut # (1.8-7.0) K/uL Lymph # (1.0-4.3) K/uL [place] # (0.0-0.8) K/uL Eos # (0.0-0.7) K/uL Baso # (0.0-0.2) K/uL Neutrophils % (Manual) (50-75) % Band Neutrophils % (0-2) % Lymphocytes % (Manual) (20-40) % Monocytes % (Manual) (0-10) % Platelet Estimate (NORMAL) Polychromasia Hypochromasia (manual) Anisocytosis (manual) Microcytosis (manual) Tear Drop Cells Puncture Site pCO2 (35-45) mm/Hg pO2 (80-100) mm/Hg HCO3 (21-28) mmol/L ABG pH (7.35-7.45) ABG Total CO2 (22-28) mmol/L ABG O2 Saturation (95-98) % ABG Base Excess (-2.0-3.0) mmol/L ABG Hemoglobin (11.7-17.4) g/dL ABG Carboxyhemoglobin (0.5-1.5) % POC ABG HHb (Measured) (0.0-5.0) % ABG Methemoglobin (0.0-3.0) % Jasson Test A-a O2 Difference mm/Hg Respiratory Index Hgb O2 Saturation (95.0-98.0) % Mechanical Rate FiO2 % Tidal Volume PEEP Sodium (132-148) mmol/L Potassium (3.6-5.2) mmol/L Chloride (98-107) mmol/L Carbon Dioxide (22-30) mmol/L Anion Gap (10-20) BUN (7-17) mg/dL Creatinine (0.7-1.2) MG/DL Est GFR ( Amer) Est GFR (Non-Af Amer) POC Glucose (mg/dL) 237 H (65-110) mg/dL Random Glucose (65-105) mg/dL Calcium (8.6-10.4) mg/dl Phosphorus (2.5-4.5) mg/dL Magnesium (1.6-2.3) mg/dL Total Bilirubin (0.2-1.3) mg/dL AST (14-36) U/L ALT (9-52) U/L Alkaline Phosphatase (38-126) U/L Total Protein (6.3-8.3) g/dL Albumin (3.5-5.0) g/dL Globulin (2.2-3.9) gm/dL Albumin/Globulin Ratio (1.0-2.1) Laboratory Results - last 24 hr 06/29/16 06/29/16 06/30/16 18:18 23:53 04:00 WBC RBC Hgb Hct MCV MCH MCHC RDW Plt Count MPV Neut % (Auto) Lymph % (Auto) [place] % (Auto) Eos % (Auto) Baso % (Auto) Neut # Lymph # [place] # Eos # Baso # Neutrophils % (Manual) Band Neutrophils % Lymphocytes % (Manual) Monocytes % (Manual) Platelet Estimate Polychromasia Hypochromasia (manual) Anisocytosis (manual) Microcytosis (manual) Tear Drop Cells Puncture Site pCO2 pO2 HCO3 ABG pH ABG Total CO2 ABG O2 Saturation ABG Base Excess ABG Hemoglobin ABG Carboxyhemoglobin POC ABG HHb (Measured) ABG Methemoglobin Jasson Test A-a O2 Difference Respiratory Index Hgb O2 Saturation Mechanical Rate FiO2 Tidal Volume PEEP Sodium 137 Potassium 3.1 L Chloride 100 Carbon Dioxide 28 Anion Gap 12 BUN 38 H Creatinine 1.9 H Est GFR ( Amer) 32 Est GFR (Non-Af Amer) 26 POC Glucose (mg/dL) 237 H 283 H Random Glucose 268 H Calcium 7.2 L Phosphorus 4.6 H Magnesium 2.0 Total Bilirubin 0.6 AST 24 ALT 39 Alkaline Phosphatase 122 Total Protein 5.5 L Albumin 2.7 L Globulin 2.8 Albumin/Globulin Ratio 1.0 06/30/16 06/30/16 06/30/16 05:07 06:25 06:35 WBC 8.5 RBC 3.21 L Hgb 9.0 L Hct 28.3 L MCV 88.1 MCH 28.0 MCHC 31.8 L RDW 16.7 H Plt Count 77 L D MPV 9.3 Neut % (Auto) 97.2 H Lymph % (Auto) 1.1 L [place] % (Auto) 1.6 Eos % (Auto) 0.1 Baso % (Auto) 0.0 Neut # 8.3 H Lymph # 0.1 L [place] # 0.1 Eos # 0.0 Baso # 0.0 Neutrophils % (Manual) 81 H Band Neutrophils % 16 H* Lymphocytes % (Manual) 2 L Monocytes % (Manual) 1 Platelet Estimate Decreased L Polychromasia Slight Hypochromasia (manual) Slight Anisocytosis (manual) Slight Microcytosis (manual) Slight Tear Drop Cells Slight Puncture Site Rr pCO2 46 H pO2 92 HCO3 25.7 ABG pH 7.37 ABG Total CO2 28.0 ABG O2 Saturation 98.0 ABG Base Excess 1.0 ABG Hemoglobin 9.2 L ABG Carboxyhemoglobin 1.4 POC ABG HHb (Measured) 2.0 ABG Methemoglobin 0.8 Jasson Test Pos A-a O2 Difference 64.0 Respiratory Index 0.7 Hgb O2 Saturation 95.7 Mechanical Rate 16 FiO2 30.0 Tidal Volume 500 PEEP 5 Sodium Potassium Chloride Carbon Dioxide Anion Gap BUN Creatinine Est GFR ( Amer) Est GFR (Non-Af Amer) POC Glucose (mg/dL) 283 H Random Glucose Calcium Phosphorus Magnesium Total Bilirubin AST ALT Alkaline Phosphatase Total Protein Albumin Globulin Albumin/Globulin Ratio 06/30/16 11:34 WBC RBC Hgb Hct MCV MCH MCHC RDW Plt Count MPV Neut % (Auto) Lymph % (Auto) [place] % (Auto) Eos % (Auto) Baso % (Auto) Neut # Lymph # [place] # Eos # Baso # Neutrophils % (Manual) Band Neutrophils % Lymphocytes % (Manual) Monocytes % (Manual) Platelet Estimate Polychromasia Hypochromasia (manual) Anisocytosis (manual) Microcytosis (manual) Tear Drop Cells Puncture Site pCO2 pO2 HCO3 ABG pH ABG Total CO2 ABG O2 Saturation ABG Base Excess ABG Hemoglobin ABG Carboxyhemoglobin POC ABG HHb (Measured) ABG Methemoglobin Jasson Test A-a O2 Difference Respiratory Index Hgb O2 Saturation Mechanical Rate FiO2 Tidal Volume PEEP Sodium Potassium Chloride Carbon Dioxide Anion Gap BUN Creatinine Est GFR ( Amer) Est GFR (Non-Af Amer) POC Glucose (mg/dL) 331 H Random Glucose Calcium Phosphorus Magnesium Total Bilirubin AST ALT Alkaline Phosphatase Total Protein Albumin Globulin Albumin/Globulin Ratio Fingerstick Blood Sugar Results: 267 Critical Care Progress Note - Nutrition Nutrition: Nutrition Category Date Time Status NPO Diet [DIET] Diets 06/28/16 Dinner Active Assessment/Plan - Assessment and Plan (Free Text) Assessment: 70-year-old female with history of anemia arthritis, asthma, cardiac arrhythmias , COPD hypertension, diabetes, hypercholesteremia, kidney stones, lung cancer, pulmonary embolism, renal insufficiency. Patient came to the emergency room with the sudden onset of shortness of breath. Pt intubated and sedated. On Avelox and Pramaxin for HAP and UTI. Plan: Neuro: Pt intubated and sedated - Propofol titrated for sedation - PVRC: FiO2: 30%, PEEP 5, RR 16, Tvolume 500 Endo: Hx Diabetes ISS - HIGH Q6H Accuchecks Q6H B+, high of 331 this AM Cardio: Tachycardic (100's), Normotensive - Lopressor 25mg PO BID Elevated troponins - 0.92, 0.384, 0.1150 Hyperkalemia 5.7 on admission - Kayexalate given, repeat 4.8, - Patient currently 3.1 - given KCL 20 MEQ Pulm: Hx of lobectomy, lung CA, chemotherapy Intubated - pt initailly on BiPap, remained hypoxic, electively intubated -Vent settings: PVRC: FiO2: 30%, PEEP 5, RR 16, Tvolume 500 -ABG improving CXR (06/29/16): ETT tube in good position. NGT in good position. Persistent right suprahilar mass. Smaller nodular density superior-lateral to mass may represent nodules. Nodularity at right lung base may represent shadows with ribs and vessels. Additional nodular density seen over costophrenic angles (see full report) - Pt noted green/black sputum for several days before admission - Avelox 400mg IV Q24H, Primaxin Q6H Hx of COPD - Solumedrol 60mg IVP Q8H - Singulair 10mg PO HS GI: Tubefeedings: Diabetisource, Goal 45ml/hr /Renal: BUN/Cr 38/1.9 UA: 2+ protein, 3+ glucose, Nitrate/LE negative, RBC 54, Bacteria occasional Urine cx (06/26/16): Gram negative richard NS @ 100cc/hr Monitor I/Os Heme/Onc: Hx of anemia - H/H 11/20/32.1 Coagulopathy: - Inr 4.7, PT 57.6, PTT 53 Hx of PE- patient was on coumadin ID: Upon admission: Leukocytosis 28, Tachycardic, left shift, bandemia 17 Hospital Acquired Pneumonia - Avelox 400mg IV Q24H, Primaxin Q6H UTI - Urine cx (06/26/16): Gram negative richard F/U Dr. Paz hooks- help appreciated Blood cx (06/28/16): no growth for 24 hours x 2 Sputum Cx (06/29/16): No growth MRSA screen (06/28/16): not detected Hx of Benzo/Alcohol Abuse - UDS negative Prophylaxis: DVT: SCDs VTE: Contraindicated due to thrombocytopenia GI: Protonix 40mg IVP daily Palliative Care consulted DW Lauren Nassar DO, PGY-1 <Kamar Neville - Last Filed: 06/30/16 16:57> CCU Objective - Vital Signs / Intake & Output Vital Signs (Last 4 hours): Vital Signs Pulse Resp BP Pulse Ox 06/30/16 14:00 98 H 14 102/63 99 06/30/16 13:00 99 H 14 109/69 100 Intake and Output (Last 8hrs): Intake & Output 06/30/16 06/30/16 06/30/16 06:59 14:59 22:59 Intake Total 1079.6 1378.8 Output Total 850 Balance 229.6 1378.8 Weight 155 lb Intake: Intake, IV Amount 899.6 868.8 Right Port-A-Cath 99.6 68.8 Right Distal Port 800 800 Tube Feeding 180 510 Output: Urine 850 2-way Urethral 850 Other: # Bowel Movements 1 0 - Medications Active Medications: Active Medications Generic Name Dose Route Start Last Admin Trade Name Freq PRN Reason Stop Dose Admin Albuterol/Ipratropium 3 ml 06/28/16 14:00 06/30/16 13:36 Duoneb 3 Mg/0.5 Mg (3 Ml) Ud INH 3 ml RQ6 LIVIER Administration Moxifloxacin HCl 250 mls @ 167 mls/hr 06/29/16 10:00 06/30/16 09:32 Avelox Iv 400mg/250ml Ns IVPB 167 mls/hr Q24H LIVIER Administration Propofol 100 mls @ 2.1 mls/hr 06/29/16 00:37 06/30/16 09:40 Diprivan IV 8.4 mls/hr .Q24H PRN Administration TITRATE PER MD ORDER Protocol 5 MCG/KG/MIN Sodium Chloride 1,000 mls @ 100 mls/hr 06/29/16 10:30 06/30/16 08:32 Sodium Chloride 0.9% IV 100 mls/hr .Q10H LIVIER Administration Imipenem/Cilastatin Sodium 250 100 mls @ 100 mls/hr 06/30/16 11:00 06/30/16 12: 30 mg/ Sodium Chloride IVPB 100 mls/hr Q6H LIVIER Administration Insulin Human Regular 0 unit 06/30/16 13:37 Novolin R SC Q6 LIVIER Protocol Methylprednisolone 60 mg 06/28/16 14:00 06/30/16 13:50 Solu-Medrol IVP 60 mg Q8 LIVIER Administration Metoprolol Tartrate 25 mg 06/29/16 10:30 06/30/16 09:35 Lopressor PO 25 mg BID LIVIER Administration Montelukast Sodium 10 mg 06/28/16 22:00 06/29/16 22:08 Singulair PO 10 mg HS LIVIER Administration Pantoprazole Sodium 40 mg 06/29/16 12:15 06/30/16 09:35 Protonix Inj IVP 40 mg DAILY LIVIER Administration - Patient Studies Lab Studies: Microbiology Studies 06/28/16 12:14 MRSA Culture (Admit) - Final Nose MRSA NOT DETECTED 06/29/16 10:19 Gram Stain - Preliminary Trachasp Lab Studies 06/30/16 06/30/16 06/30/16 Range/Units 14:02 11:34 06:35 WBC 6.7 8.5 (4.8-10.8) K/uL RBC 3.17 L 3.21 L (3.80-5.20) Mil/uL Hgb 8.9 L 9.0 L (11.0-16.0) g/dL Hct 27.6 L 28.3 L (34.0-47.0) % MCV 87.2 88.1 (81.0-99.0) fL MCH 27.9 28.0 (27.0-31.0) pg MCHC 32.0 L 31.8 L (33.0-37.0) g/dL RDW 16.5 H 16.7 H (11.5-14.5) % Plt Count 72 L 77 L D (130-400) K/uL MPV 8.7 9.3 (7.2-11.7) fL Neut % (Auto) 96.4 H 97.2 H (50.0-75.0) % Lymph % (Auto) 1.7 L 1.1 L (20.0-40.0) % [place] % (Auto) 1.7 1.6 (0.0-10.0) % Eos % (Auto) 0.1 0.1 (0.0-4.0) % Baso % (Auto) 0.1 0.0 (0.0-2.0) % Neut # 6.5 8.3 H (1.8-7.0) K/uL Lymph # 0.1 L 0.1 L (1.0-4.3) K/uL [place] # 0.1 0.1 (0.0-0.8) K/uL Eos # 0.0 0.0 (0.0-0.7) K/uL Baso # 0.0 0.0 (0.0-0.2) K/uL Neutrophils % (Manual) 77 H 81 H (50-75) % Band Neutrophils % 19 H* 16 H* (0-2) % Lymphocytes % (Manual) 3 L 2 L (20-40) % Monocytes % (Manual) 1 1 (0-10) % Toxic Granulation Present Dohle Bodies Present Platelet Estimate Decreased L Decreased L (NORMAL) Polychromasia Slight Hypochromasia (manual) Slight Anisocytosis (manual) Slight Slight Microcytosis (manual) Slight Tear Drop Cells Slight Ovalocytes Slight Puncture Site pCO2 (35-45) mm/Hg pO2 (80-100) mm/Hg HCO3 (21-28) mmol/L ABG pH (7.35-7.45) ABG Total CO2 (22-28) mmol/L ABG O2 Saturation (95-98) % ABG Base Excess (-2.0-3.0) mmol/L ABG Hemoglobin (11.7-17.4) g/dL ABG Carboxyhemoglobin (0.5-1.5) % POC ABG HHb (Measured) (0.0-5.0) % ABG Methemoglobin (0.0-3.0) % Jasson Test A-a O2 Difference mm/Hg Respiratory Index Hgb O2 Saturation (95.0-98.0) % Mechanical Rate FiO2 % Tidal Volume PEEP Sodium (132-148) mmol/L Potassium (3.6-5.2) mmol/L Chloride (98-107) mmol/L Carbon Dioxide (22-30) mmol/L Anion Gap (10-20) BUN (7-17) mg/dL Creatinine (0.7-1.2) MG/DL Est GFR ( Amer) Est GFR (Non-Af Amer) POC Glucose (mg/dL) 331 H (65-110) mg/dL Random Glucose (65-105) mg/dL Calcium (8.6-10.4) mg/dl Phosphorus (2.5-4.5) mg/dL Magnesium (1.6-2.3) mg/dL Total Bilirubin (0.2-1.3) mg/dL AST (14-36) U/L ALT (9-52) U/L Alkaline Phosphatase (38-126) U/L Total Creatine Kinase 67 (30-135) U/L CK-MB (Mass) 0.74 (0.0-3.38) ng/mL Troponin I, Quant 0.1150 (0.00-0.120) ng/mL Total Protein (6.3-8.3) g/dL Albumin (3.5-5.0) g/dL Globulin (2.2-3.9) gm/dL Albumin/Globulin Ratio (1.0-2.1) 06/30/16 06/30/16 06/30/16 Range/Units 06:25 05:07 04:00 WBC (4.8-10.8) K/uL RBC (3.80-5.20) Mil/uL Hgb (11.0-16.0) g/dL Hct (34.0-47.0) % MCV (81.0-99.0) fL MCH (27.0-31.0) pg MCHC (33.0-37.0) g/dL RDW (11.5-14.5) % Plt Count (130-400) K/uL MPV (7.2-11.7) fL Neut % (Auto) (50.0-75.0) % Lymph % (Auto) (20.0-40.0) % [place] % (Auto) (0.0-10.0) % Eos % (Auto) (0.0-4.0) % Baso % (Auto) (0.0-2.0) % Neut # (1.8-7.0) K/uL Lymph # (1.0-4.3) K/uL [place] # (0.0-0.8) K/uL Eos # (0.0-0.7) K/uL Baso # (0.0-0.2) K/uL Neutrophils % (Manual) (50-75) % Band Neutrophils % (0-2) % Lymphocytes % (Manual) (20-40) % Monocytes % (Manual) (0-10) % Toxic Granulation Dohle Bodies Platelet Estimate (NORMAL) Polychromasia Hypochromasia (manual) Anisocytosis (manual) Microcytosis (manual) Tear Drop Cells Ovalocytes Puncture Site Rr pCO2 46 H (35-45) mm/Hg pO2 92 (80-100) mm/Hg HCO3 25.7 (21-28) mmol/L ABG pH 7.37 (7.35-7.45) ABG Total CO2 28.0 (22-28) mmol/L ABG O2 Saturation 98.0 (95-98) % ABG Base Excess 1.0 (-2.0-3.0) mmol/L ABG Hemoglobin 9.2 L (11.7-17.4) g/dL ABG Carboxyhemoglobin 1.4 (0.5-1.5) % POC ABG HHb (Measured) 2.0 (0.0-5.0) % ABG Methemoglobin 0.8 (0.0-3.0) % Jasson Test Pos A-a O2 Difference 64.0 mm/Hg Respiratory Index 0.7 Hgb O2 Saturation 95.7 (95.0-98.0) % Mechanical Rate 16 FiO2 30.0 % Tidal Volume 500 PEEP 5 Sodium 137 (132-148) mmol/L Potassium 3.1 L (3.6-5.2) mmol/L Chloride 100 (98-107) mmol/L Carbon Dioxide 28 (22-30) mmol/L Anion Gap 12 (10-20) BUN 38 H (7-17) mg/dL Creatinine 1.9 H (0.7-1.2) MG/DL Est GFR ( Amer) 32 Est GFR (Non-Af Amer) 26 POC Glucose (mg/dL) 283 H (65-110) mg/dL Random Glucose 268 H (65-105) mg/dL Calcium 7.2 L (8.6-10.4) mg/dl Phosphorus 4.6 H (2.5-4.5) mg/dL Magnesium 2.0 (1.6-2.3) mg/dL Total Bilirubin 0.6 (0.2-1.3) mg/dL AST 24 (14-36) U/L ALT 39 (9-52) U/L Alkaline Phosphatase 122 (38-126) U/L Total Creatine Kinase (30-135) U/L CK-MB (Mass) (0.0-3.38) ng/mL Troponin I, Quant (0.00-0.120) ng/mL Total Protein 5.5 L (6.3-8.3) g/dL Albumin 2.7 L (3.5-5.0) g/dL Globulin 2.8 (2.2-3.9) gm/dL Albumin/Globulin Ratio 1.0 (1.0-2.1) 06/29/16 06/29/16 Range/Units 23:53 18:18 WBC (4.8-10.8) K/uL RBC (3.80-5.20) Mil/uL Hgb (11.0-16.0) g/dL Hct (34.0-47.0) % MCV (81.0-99.0) fL MCH (27.0-31.0) pg MCHC (33.0-37.0) g/dL RDW (11.5-14.5) % Plt Count (130-400) K/uL MPV (7.2-11.7) fL Neut % (Auto) (50.0-75.0) % Lymph % (Auto) (20.0-40.0) % [place] % (Auto) (0.0-10.0) % Eos % (Auto) (0.0-4.0) % Baso % (Auto) (0.0-2.0) % Neut # (1.8-7.0) K/uL Lymph # (1.0-4.3) K/uL [place] # (0.0-0.8) K/uL Eos # (0.0-0.7) K/uL Baso # (0.0-0.2) K/uL Neutrophils % (Manual) (50-75) % Band Neutrophils % (0-2) % Lymphocytes % (Manual) (20-40) % Monocytes % (Manual) (0-10) % Toxic Granulation Dohle Bodies Platelet Estimate (NORMAL) Polychromasia Hypochromasia (manual) Anisocytosis (manual) Microcytosis (manual) Tear Drop Cells Ovalocytes Puncture Site pCO2 (35-45) mm/Hg pO2 (80-100) mm/Hg HCO3 (21-28) mmol/L ABG pH (7.35-7.45) ABG Total CO2 (22-28) mmol/L ABG O2 Saturation (95-98) % ABG Base Excess (-2.0-3.0) mmol/L ABG Hemoglobin (11.7-17.4) g/dL ABG Carboxyhemoglobin (0.5-1.5) % POC ABG HHb (Measured) (0.0-5.0) % ABG Methemoglobin (0.0-3.0) % Jasson Test A-a O2 Difference mm/Hg Respiratory Index Hgb O2 Saturation (95.0-98.0) % Mechanical Rate FiO2 % Tidal Volume PEEP Sodium (132-148) mmol/L Potassium (3.6-5.2) mmol/L Chloride (98-107) mmol/L Carbon Dioxide (22-30) mmol/L Anion Gap (10-20) BUN (7-17) mg/dL Creatinine (0.7-1.2) MG/DL Est GFR ( Amer) Est GFR (Non-Af Amer) POC Glucose (mg/dL) 283 H 237 H (65-110) mg/dL Random Glucose (65-105) mg/dL Calcium (8.6-10.4) mg/dl Phosphorus (2.5-4.5) mg/dL Magnesium (1.6-2.3) mg/dL Total Bilirubin (0.2-1.3) mg/dL AST (14-36) U/L ALT (9-52) U/L Alkaline Phosphatase (38-126) U/L Total Creatine Kinase (30-135) U/L CK-MB (Mass) (0.0-3.38) ng/mL Troponin I, Quant (0.00-0.120) ng/mL Total Protein (6.3-8.3) g/dL Albumin (3.5-5.0) g/dL Globulin (2.2-3.9) gm/dL Albumin/Globulin Ratio (1.0-2.1) Laboratory Results - last 24 hr 06/29/16 06/29/1606/30/17 18:18 23:53 04:00 WBC RBC Hgb Hct MCV MCH MCHC RDW Plt Count MPV Neut % (Auto) Lymph % (Auto) [place] % (Auto) Eos % (Auto) Baso % (Auto) Neut # Lymph # [place] # Eos # Baso # Neutrophils % (Manual) Band Neutrophils % Lymphocytes % (Manual) Monocytes % (Manual) Toxic Granulation Dohle Bodies Platelet Estimate Polychromasia Hypochromasia (manual) Anisocytosis (manual) Microcytosis (manual) Tear Drop Cells Ovalocytes Puncture Site pCO2 pO2 HCO3 ABG pH ABG Total CO2 ABG O2 Saturation ABG Base Excess ABG Hemoglobin ABG Carboxyhemoglobin POC ABG HHb (Measured) ABG Methemoglobin Jasson Test A-a O2 Difference Respiratory Index Hgb O2 Saturation Mechanical Rate FiO2 Tidal Volume PEEP Sodium 137 Potassium 3.1 L Chloride 100 Carbon Dioxide 28 Anion Gap 12 BUN 38 H Creatinine 1.9 H Est GFR ( Amer) 32 Est GFR (Non-Af Amer) 26 POC Glucose (mg/dL) 237 H 283 H Random Glucose 268 H Calcium 7.2 L Phosphorus 4.6 H Magnesium 2.0 Total Bilirubin 0.6 AST 24 ALT 39 Alkaline Phosphatase 122 Total Creatine Kinase CK-MB (Mass) Troponin I, Quant Total Protein 5.5 L Albumin 2.7 L Globulin 2.8 Albumin/Globulin Ratio 1.0 06/30/16 06/30/16 06/30/16 05:07 06:25 06:35 WBC 8.5 RBC 3.21 L Hgb 9.0 L Hct 28.3 L MCV 88.1 MCH 28.0 MCHC 31.8 L RDW 16.7 H Plt Count 77 L D MPV 9.3 Neut % (Auto) 97.2 H Lymph % (Auto) 1.1 L [place] % (Auto) 1.6 Eos % (Auto) 0.1 Baso % (Auto) 0.0 Neut # 8.3 H Lymph # 0.1 L [place] # 0.1 Eos # 0.0 Baso # 0.0 Neutrophils % (Manual) 81 H Band Neutrophils % 16 H* Lymphocytes % (Manual) 2 L Monocytes % (Manual) 1 Toxic Granulation Dohle Bodies Platelet Estimate Decreased L Polychromasia Slight Hypochromasia (manual) Slight Anisocytosis (manual) Slight Microcytosis (manual) Slight Tear Drop Cells Slight Ovalocytes Puncture Site Rr pCO2 46 H pO2 92 HCO3 25.7 ABG pH 7.37 ABG Total CO2 28.0 ABG O2 Saturation 98.0 ABG Base Excess 1.0 ABG Hemoglobin 9.2 L ABG Carboxyhemoglobin 1.4 POC ABG HHb (Measured) 2.0 ABG Methemoglobin 0.8 Jasson Test Pos A-a O2 Difference 64.0 Respiratory Index 0.7 Hgb O2 Saturation 95.7 Mechanical Rate 16 FiO2 30.0 Tidal Volume 500 PEEP 5 Sodium Potassium Chloride Carbon Dioxide Anion Gap BUN Creatinine Est GFR ( Amer) Est GFR (Non-Af Amer) POC Glucose (mg/dL) 283 H Random Glucose Calcium Phosphorus Magnesium Total Bilirubin AST ALT Alkaline Phosphatase Total Creatine Kinase CK-MB (Mass) Troponin I, Quant Total Protein Albumin Globulin Albumin/Globulin Ratio 06/30/16 06/30/16 11:34 14:02 WBC 6.7 RBC 3.17 L Hgb 8.9 L Hct 27.6 L MCV 87.2 MCH 27.9 MCHC 32.0 L RDW 16.5 H Plt Count 72 L MPV 8.7 Neut % (Auto) 96.4 H Lymph % (Auto) 1.7 L [place] % (Auto) 1.7 Eos % (Auto) 0.1 Baso % (Auto) 0.1 Neut # 6.5 Lymph # 0.1 L [place] # 0.1 Eos # 0.0 Baso # 0.0 Neutrophils % (Manual) 77 H Band Neutrophils % 19 H* Lymphocytes % (Manual) 3 L Monocytes % (Manual) 1 Toxic Granulation Present Dohle Bodies Present Platelet Estimate Decreased L Polychromasia Hypochromasia (manual) Anisocytosis (manual) Slight Microcytosis (manual) Tear Drop Cells Ovalocytes Slight Puncture Site pCO2 pO2 HCO3 ABG pH ABG Total CO2 ABG O2 Saturation ABG Base Excess ABG Hemoglobin ABG Carboxyhemoglobin POC ABG HHb (Measured) ABG Methemoglobin Jasson Test A-a O2 Difference Respiratory Index Hgb O2 Saturation Mechanical Rate FiO2 Tidal Volume PEEP Sodium Potassium Chloride Carbon Dioxide Anion Gap BUN Creatinine Est GFR ( Amer) Est GFR (Non-Af Amer) POC Glucose (mg/dL) 331 H Random Glucose Calcium Phosphorus Magnesium Total Bilirubin AST ALT Alkaline Phosphatase Total Creatine Kinase 67 CK-MB (Mass) 0.74 Troponin I, Quant 0.1150 Total Protein Albumin Globulin Albumin/Globulin Ratio Critical Care Progress Note - Nutrition Nutrition: Nutrition Category Date Time Status NPO Diet [DIET] Diets 06/28/16 Dinner Active Attending/Attestation - Attestation I have personally seen and examined this patient.: Yes I have fully participated in the care of the patient.: Yes I have reviewed all pertinent clinical information: Yes Notes (Text): 06/30/16 16:55 Patient seen and examined in the intensive care unit. Case discussed with house staff in the morning rounds. 70-year-old female with history of anemia arthritis, asthma, cardiac arrhythmias , COPD hypertension, diabetes, hypercholesteremia, kidney stones, lung cancer, pulmonary embolism, renal insufficiency. Patient came to the emergency room with the sudden onset of shortness of breath. Pt intubated and sedated. On Avelox and Pramaxin for HAP and UTI Continue ventilatory support and wean as tolerated Continue feeding Taper IV steroids Follow-up PT/INR
[2016-06-30 14:07] LABS: BASO % 0.1 % (0.0-2.0); EOS % 0.1 % (0.0-4.0); HEMATOCRIT 27.6 % (34.0-47.0); LYMPH # 0.1 K/uL (1.0-4.3); LYMPH % 1.7 % (20.0-40.0); MEAN CELL VOLUME 87.2 fL (81.0-99.0); MEAN CORPUSCULAR HEMOGLOBIN 27.9 pg (27.0-31.0); MEAN PLATELET VOLUME 8.7 fL (7.2-11.7); MONO # 0.1 K/uL (0.0-0.8); MONO % 1.7 % (0.0-10.0); PLATELET COUNT 72 K/uL (130-400); RED CELL DISTRIBUTION WIDTH 16.5 % (11.5-14.5); WHITE BLOOD COUNT 6.7 K/uL (4.8-10.8)
--- NOTE | 2016-06-30 14:42 | CP.PCM.CON ---
History of Present Illness - History of Present Illness History of Present Illness: Palliative consult for goals of care discussion Requested by Lauren READ Patient is a 70 yo female admitted in respiratory distress. As per Doctor Debrouze, patient was complaining of congestion and greenish sputum. In ED patient vas placed on BiPap with some resolution of respiratory symptoms but over night patient become severely hypotensive and needed MV support. UTI was confirmed , Gram _ rods, and IV antibiotics initiated, Avelox and Primaxin IV. Hydration was maintained by IV fluids. PMH: Lung CA, S/P lobectomy, anemia, asthma, COPD, HTN, DM, PE Soc. Hx; Single, lives with sister Jannet Fried who is a contact lens inspector [employer]. Hx: Unknown Review of Systems - Review of Systems Systems not reviewed;Unavailable: Intubated Past Patient History - Infectious Disease Hx of Infectious Diseases: None - Tetanus Immunizations Tetanus Immunization: Unknown - Past Medical History & Family History Past Medical History?: Yes - Past Social History Smoking Status: Former Smoker - CARDIAC Hx Cardia Arrhythmia: Yes Hx Hypercholesterolemia: Yes Hx Hypertension: Yes Hx Pacemaker: No - PULMONARY Hx Asthma: Yes Hx Chronic Obstructive Pulmonary Disease (COPD): Yes Hx Lung Cancer: Yes (with lobectomy) Hx Pulmonary Embolism: Yes Hx Sleep Apnea: No - NEUROLOGICAL Hx Neurological Disorder: No Hx Paralysis: No - HEENT Hx HEENT Problems: Yes Hx Epistaxis: Yes - RENAL Hx Chronic Kidney Disease: Yes Hx Kidney Stones: Yes (CYSTO/STENT 2009) - ENDOCRINE/METABOLIC Hx Endocrine Disorders: Yes Hx Diabetes Mellitus Type 2: Yes - HEMATOLOGICAL/ONCOLOGICAL Hx Anemia: Yes - INTEGUMENTARY Hx Dermatological Problems: No - MUSCULOSKELETAL/RHEUMATOLOGICAL Hx Falls: No - GASTROINTESTINAL Hx Gastrointestinal Disorders: Yes Hx Constipation: Yes - GENITOURINARY/GYNECOLOGICAL Hx Genitourinary Disorders: Yes - PSYCHIATRIC Hx Substance Use: No - SURGICAL HISTORY Hx Coronary Stent: Yes (2004) - ANESTHESIA Hx Anesthesia: Yes Hx Anesthesia Reactions: No Hx Malignant Hyperthermia: No Meds Allergies/Adverse Reactions: Allergies Allergy/AdvReac Type Severity Reaction Status Date / Time No Known Allergies Allergy Verified 06/28/16 13:21 - Medications Medications: Current Medications Albuterol/Ipratropium (Duoneb 3 Mg/0.5 Mg (3 Ml) Ud) 3 ml INH RQ6 [facility] Last Admin: 06/30/16 13:36 Dose: 3 ml Moxifloxacin HCl (Avelox Iv 400mg/250ml Ns) 250 mls @ 167 mls/hr IVPB Q24H [facility] Last Admin: 06/30/16 09:32 Dose: 167 mls/hr Propofol (Diprivan) 100 mls @ 2.1 mls/hr IV .Q24H PRN; Protocol; 5 MCG/KG/MIN PRN Reason: TITRATE PER MD ORDER Last Admin: 06/30/16 09:40 Dose: 8.4 mls/hr Sodium Chloride (Sodium Chloride 0.9%) 1,000 mls @ 100 mls/hr IV .Q10H [facility] Last Admin: 06/30/16 08:32 Dose: 100 mls/hr Imipenem/Cilastatin Sodium 250 (mg/ Sodium Chloride) 100 mls @ 100 mls/hr IVPB Q6H [facility] Last Admin: 06/30/16 12:30 Dose: 100 mls/hr Insulin Human Regular (Novolin R) 0 unit SC Q6 [facility] PRN Reason: Protocol Methylprednisolone (Solu-Medrol) 60 mg IVP Q8 [facility] Last Admin: 06/30/16 13:50 Dose: 60 mg Metoprolol Tartrate (Lopressor) 25 mg PO BID [facility] Last Admin: 06/30/16 09:35 Dose: 25 mg Montelukast Sodium (Singulair) 10 mg PO HS [facility] Last Admin: 06/29/16 22:08 Dose: 10 mg Pantoprazole Sodium (Protonix Inj) 40 mg IVP DAILY [facility] Last Admin: 06/30/16 09:35 Dose: 40 mg Physical Exam - Constitutional Appears: In Acute Distress, Chronically Ill - Head Exam Head Exam: ATRAUMATIC - Eye Exam Eye Exam: Normal appearance Pupil Exam: NORMAL ACCOMODATION - ENT Exam ENT Exam: Mucous Membranes Dry Additional comments: ET tube - Neck Exam Neck exam: Positive for: Normal Inspection - Respiratory Exam Additional comments: On MV - Cardiovascular Exam Cardiovascular Exam: Tachycardia - GI/Abdominal Exam GI & Abdominal Exam: Hypoactive Bowel Sounds - Rectal Exam Rectal Exam: Deferred - Exam Additional comments: [place] cath - Extremities Exam Extremities exam: Positive for: pedal edema - Back Exam Back exam: NORMAL INSPECTION - Neurological Exam Neurological exam: Motor Sensory Deficit - Psychiatric Exam Psychiatric exam: Flat Affect - Skin Skin Exam: Pallor Results - Vital Signs Recent Vital Signs: Last Vital Signs Temp 97.6 F 06/30/16 12:00 Pulse 98 H 06/30/16 14:00 Resp 14 06/30/16 14:00 BP 102/63 06/30/16 14:00 Pulse Ox 99 06/30/16 14:00 - Labs Result Diagrams: 06/30/16 14:02 06/30/16 04:00 Labs: Laboratory Results - last 24 hr 06/29/16 06/29/16 06/30/16 18:18 23:53 04:00 WBC RBC Hgb Hct MCV MCH MCHC RDW Plt Count MPV Neut % (Auto) Lymph % (Auto) [place] % (Auto) Eos % (Auto) Baso % (Auto) Neut # Lymph # Craig # Eos # Baso # Neutrophils % (Manual) Band Neutrophils % Lymphocytes % (Manual) Monocytes % (Manual) Platelet Estimate Polychromasia Hypochromasia (manual) Anisocytosis (manual) Microcytosis (manual) Tear Drop Cells Puncture Site pCO2 pO2 HCO3 ABG pH ABG Total CO2 ABG O2 Saturation ABG Base Excess ABG Hemoglobin ABG Carboxyhemoglobin POC ABG HHb (Measured) ABG Methemoglobin Jasson Test A-a O2 Difference Respiratory Index Hgb O2 Saturation Mechanical Rate FiO2 Tidal Volume PEEP Sodium 137 Potassium 3.1 L Chloride 100 Carbon Dioxide 28 Anion Gap 12 BUN 38 H Creatinine 1.9 H Est GFR ( Amer) 32 Est GFR (Non-Af Amer) 26 POC Glucose (mg/dL) 237 H 283 H Random Glucose 268 H Calcium 7.2 L Phosphorus 4.6 H Magnesium 2.0 Total Bilirubin 0.6 AST 24 ALT 39 Alkaline Phosphatase 122 Total Creatine Kinase CK-MB (Mass) Total Protein 5.5 L Albumin 2.7 L Globulin 2.8 Albumin/Globulin Ratio 1.0 06/30/16 06/30/16 06/30/16 05:07 06:25 06:35 WBC 8.5 RBC 3.21 L Hgb 9.0 L Hct 28.3 L MCV 88.1 MCH 28.0 MCHC 31.8 L RDW 16.7 H Plt Count 77 L D MPV 9.3 Neut % (Auto) 97.2 H Lymph % (Auto) 1.1 L [place] % (Auto) 1.6 Eos % (Auto) 0.1 Baso % (Auto) 0.0 Neut # 8.3 H Lymph # 0.1 L [place] # 0.1 Eos # 0.0 Baso # 0.0 Neutrophils % (Manual) 81 H Band Neutrophils % 16 H* Lymphocytes % (Manual) 2 L Monocytes % (Manual) 1 Platelet Estimate Decreased L Polychromasia Slight Hypochromasia (manual) Slight Anisocytosis (manual) Slight Microcytosis (manual) Slight Tear Drop Cells Slight Puncture Site Rr pCO2 46 H pO2 92 HCO3 25.7 ABG pH 7.37 ABG Total CO2 28.0 ABG O2 Saturation 98.0 ABG Base Excess 1.0 ABG Hemoglobin 9.2 L ABG Carboxyhemoglobin 1.4 POC ABG HHb (Measured) 2.0 ABG Methemoglobin 0.8 Jasson Test Pos A-a O2 Difference 64.0 Respiratory Index 0.7 Hgb O2 Saturation 95.7 Mechanical Rate 16 FiO2 30.0 Tidal Volume 500 PEEP 5 Sodium Potassium Chloride Carbon Dioxide Anion Gap BUN Creatinine Est GFR ( Amer) Est GFR (Non-Af Amer) POC Glucose (mg/dL) 283 H Random Glucose Calcium Phosphorus Magnesium Total Bilirubin AST ALT Alkaline Phosphatase Total Creatine Kinase CK-MB (Mass) Total Protein Albumin Globulin Albumin/Globulin Ratio 06/30/16 06/30/16 11:34 14:02 WBC 6.7 RBC 3.17 L Hgb 8.9 L Hct 27.6 L MCV 87.2 MCH 27.9 MCHC 32.0 L RDW 16.5 H Plt Count 72 L MPV 8.7 Neut % (Auto) 96.4 H Lymph % (Auto) 1.7 L [place] % (Auto) 1.7 Eos % (Auto) 0.1 Baso % (Auto) 0.1 Neut # 6.5 Lymph # 0.1 L [place] # 0.1 Eos # 0.0 Baso # 0.0 Neutrophils % (Manual) Band Neutrophils % Lymphocytes % (Manual) Monocytes % (Manual) Platelet Estimate Polychromasia Hypochromasia (manual) Anisocytosis (manual) Microcytosis (manual) Tear Drop Cells Puncture Site pCO2 pO2 HCO3 ABG pH ABG Total CO2 ABG O2 Saturation ABG Base Excess ABG Hemoglobin ABG Carboxyhemoglobin POC ABG HHb (Measured) ABG Methemoglobin Jasson Test A-a O2 Difference Respiratory Index Hgb O2 Saturation Mechanical Rate FiO2 Tidal Volume PEEP Sodium Potassium Chloride Carbon Dioxide Anion Gap BUN Creatinine Est GFR ( Amer) Est GFR (Non-Af Amer) POC Glucose (mg/dL) 331 H Random Glucose Calcium Phosphorus Magnesium Total Bilirubin AST ALT Alkaline Phosphatase Total Creatine Kinase 67 CK-MB (Mass) 0.74 Total Protein Albumin Globulin Albumin/Globulin Ratio Assessment & Plan - Assessment and Plan (Free Text) Assessment: Palliative consult Code status Full Code. There is no advance directive on the chart. PPS 10%. ROS unobtainable due to condition I reviewed medical records, all diagnostic studies and examined patient in bed. ROS obtained from chart and ICU team. Patient is sedated, intubated and unresponsive to stimuli. There is motor sensory deficit. MV support, O2Sat 99%. patient is tachycardic, HR 98, BP 102/ 89. BP maintained by IV hydration. urine output 940 cc / 24 hr. Vital functions remain WNL on life support. As per Doctor Esmer note, if everything goes well , weaning trial may begun in 1 to 2 days. I called patient's sister Jannet for a family meeting and left a message. Impression * This is a chronically ill lady with acute onset of respiratory distress, on life support * Patient's wishes for end of life care are not known * Patient has known hx of lung CA and lobectomy * Inadequate perfusion * Hypotension Suggestion * Symptoms treatment * IV hydration * promote skin integrity, turn and position Q 2 hr * I will discuss Code status and goals of care either with patient if her condition improves, or with the sister, what ever comes first Thank you for consulting Palliative services. *
[2016-06-30 14:44] LABS: NEUTROPHIL 77 % (50-75); TOTAL CELLS COUNTED 100
--- NOTE | 2016-06-30 23:08 | CON ---
DATE: 06/30/2016 REQUESTING PHYSICIAN: Dr. Mark. HISTORY OF PRESENT ILLNESS: This patient is a 70-year-old female. She was recently here. She has a history of lung cancer, pulmonary embolism, anemia, arthritis, asthma, cardiac arrhythmias and she r emains tachycardic with chronic obstructive pulmonary disease, hypertension, diabetes mellitus, hyper lipidemia, history of kidney stones, came in with shortness of breath and she is presently intubated. I am asked to evaluate her. She was brought in by ambulance and was placed on BiPAP. She was havi ng severe hypoxia and was not able to speak. She is intubated at this time and is being followed by the electrocardiograph technician. She was in rehab, she went with a UTI and was getting treatment for VRE with Zyvox and daughter is at the bedside. Says that she was home 2 days and had a green color of mucus and malaika etimes had some streaks of blood. She has no nausea, no vomiting. She did not have any fever, but s he had a fever when she was admitted to the hospital. She has fever on admission, so most of the rec ord is taken from the chart. ALLERGIES: She is not allergic to any medicine. MEDICATIONS: She is on albuterol. She is on imipenem, insulin, , prednisone, Lopressor, Singul air, moxifloxacin, Protonix, Diprivan, sodium chloride. So, the patient is on imipenem and mox ifloxacin at this time and covering for the pseudomonas mostly. She is a lung cancer patient. REVIEW OF SYSTEMS: Unable to obtain. PHYSICAL EXAMINATION: VITAL SIGNS: I find her temperature is today 97.5. She remains with a heart rate of 90, blood press ure is 124/74, respirations are 15. She is on mechanical ventilator. HEENT: Head is atraumatic, normocephalic. NECK: Supple. LUNGS: Have coarse breath sounds. HEART: S1, S2 regular. ABDOMEN: Soft, nontender, no guarding, no rigidity present. EXTREMITIES: No edema, clubbing or cyanosis. LABORATORY DATA: Noted. Labs show white count is 6.7, hemoglobin 8.9, hematocrit 27.6, platelet cou nt is 72, is low, and proteins are 2+, 3+ glucose, 3+ blood and leukocytes are negative. So, there i s blood in the urine. She does have kidney stones in the past. Potassium is 3.11 today, sodium 137, chloride 100, CO2 is 28, anion gap is 12, BUN is 38, creatinine is 1.9 and creatinine is elevated. INR is 4.7, when she came yesterday was 4.7, platelets are still low. She came with platelets of 194 , though, and they dropped to 72 and she is on 250 q. 6 hour imipenem. PLAN: If the platelets drop further, we will have to discontinue imipenem and will need to reevalua te what that chest x-ray shows and I would get a sputum culture also if not done. Shows no significa nt interval change, it shows persistent large right suprahilar mild bilateral apical pleural thickeni ng with upper lobe granulomatous changes, linear atelectasis in the left mid lung zone. She did have other lesions and we do think it is part of the metastasis of the lung on the right side and she is now with respiratory failure. We will get a sputum culture done. Prognosis remains poor. Will foll ow. Bryan Mullen MD cc: [id number] TT: 06/30/2016 23:08:08 Confirmation # [id number] Dictation # [id number] jose miguel
[2016-07-01] MEDS: Albuterol-Ipratrop 3 mg / 0.5 (3 ml) UD INH SCH ×4 (01:10→19:45)
--- NOTE | 2016-07-01 01:16 | PN ---
DATE: 06/30/2016 Today the patient is still intubated in ICU, and now the patient is somewhat awake and responding to questions by shaking the head appropriately. The patient is on respirator with FIO2 of 30%. The pat ient has a blood pressure of 146/78, pulse is 105, respirations are 16-20, and 100% FiO2. PHYSICAL EXAMINATION: NECK: Supple. LUNGS: Some rales bilaterally. HEART: Tachycardic. ABDOMEN: Soft and nontender. No palpable mass, hydronephrosis. EXTREMITIES: There is no edema. The patient has had some blood tests done and showed that the WBC is 6.7, hemoglobin 8.9, hematocrit 37.6, and platelets are 72. The band is 19. Chemistry showed sodium 137, potassium 3.1, chloride 10 0, bicarbonate 28, BUN 38, creatinine 1.9 and 68, albumin 2.7, 5.5. PLAN: The patient has a consult today with Dr. Mullen, YUAN, and also the patient has potassium repla cement. Progress note from is appreciated. The plan is to continue the mechanical ventilation and continue the and the current medications. Isak Mark MD cc: [id number] TT: 07/01/2016 01:16:02 Confirmation # [id number] Dictation # [id number] tn
[2016-07-01] MEDS: (Novolin R) Insulin Human Regular 100 units/ml vial SC SCH ×4 (01:23→18:39)
[2016-07-01] MEDS: Sodium Chloride 0.9% 1,000 ML IV SCH ×2 (01:30→15:34)
[2016-07-01 05:29] LABS: ABG ALLEN TEST POS; ABG MECHANICAL RATE 16; ARTERIAL BLOOD HGB O2 SAT 96.3 % (95.0-98.0); ATERIAL BLOOD GAS PEEP 5; CARBOXYHEMOGLOBIN 1.5 % (0.5-1.5); DRAW SITE RB; HHB 1.4 % (0.0-5.0); METHEMOGLOBIN 0.9 % (0.0-3.0)
[2016-07-01 06:50] LABS: BASO % 0.2 % (0.0-2.0); EOS % 0.1 % (0.0-4.0); HEMATOCRIT 28.9 % (34.0-47.0); LYMPH # 0.4 K/uL (1.0-4.3); LYMPH % 5.5 % (20.0-40.0); MEAN CELL VOLUME 88.4 fL (81.0-99.0); MEAN CORPUSCULAR HGB CONC 31.7 g/dL (33.0-37.0); MEAN PLATELET VOLUME 9.4 fL (7.2-11.7); MONO # 0.3 K/uL (0.0-0.8); MONO % 4.4 % (0.0-10.0); NRBC % 0.1 % (0.0-2.0); PLATELET COUNT 55 K/uL (130-400); RED CELL DISTRIBUTION WIDTH 16.7 % (11.5-14.5); WHITE BLOOD COUNT 7.2 K/uL (4.8-10.8)
[2016-07-01] MEDS: MethylPREDNISolone 40 mg Vial IVP SCH ×3 (07:12→21:16)
[2016-07-01 07:20] LABS: POTASSIUM 3.5 mmol/L (3.6-5.2)
[2016-07-01 07:22] LABS: BILIRUBIN,TOTAL 0.4 mg/dL (0.2-1.3); PHOSPHOROUS 2.7 mg/dL (2.5-4.5); TOTAL PROTEIN 5.6 g/dL (6.3-8.3)
[2016-07-01 07:23] LABS: CALCIUM 7.7 mg/dl (8.6-10.4); MAGNESIUM 2.1 mg/dL (1.6-2.3)
[2016-07-01 07:26] LABS: ALB/GLOB RATIO 0.9 (1.0-2.1)
[2016-07-01] MEDS ORDERED: Potassium Chloride 20 mEq 100 ML IVPB ONE (08:00)
--- NOTE | 2016-07-01 08:10 | CP.CCUPN ---
<Nereida Aguilara - Last Filed: 07/01/16 10:10> CCU Subjective - Physician Review Subjective (Free Text): Patient was seen and examined at bedside. Patient is currently intubated. Current Vent settings: PVRC: FiO2: 30%, PEEP 5, RR 16, Tvolume 500 . ROS unobtainable due to patient's condition. Patient's sister, Jannet Fried, is the decision maker while pt is intubated. Patient is currently being weaned. Now on CPAP 07/26. If patient tolerates she will be extubated today. Steroids were decreased from 60 Q8 to 40 Q8. CCU Objective - Vital Signs / Intake & Output Vital Signs (Last 4 hours): Vital Signs Pulse Resp BP Pulse Ox 07/01/16 06:00 87 18 133/78 100 07/01/16 05:00 82 18 150/79 100 Intake and Output (Last 8hrs): Intake & Output 06/30/16 07/01/16 07/01/16 22:59 06:59 14:59 Intake Total 1255.8 1388.0 0 Output Total 305 320 Balance 950.8 1068.0 0 Weight 156 lb Intake: IV 0 0 Intake, IV Amount 885.8 1068.0 Right Port-A-Cath 85.8 168.0 Right Distal Port 800 900 Tube Feeding 270 320 Other 100 Output: Urine 305 320 2-way Urethral 305 320 - Physical Exam Head: Positive for: Atraumatic, Normocephalic Pupils: Positive for: PERRL Extroacular Muscles: Positive for: EOMI Mouth: Positive for: Moist Mucous Membranes Respiratory/Chest: Positive for: Rhonchi, Other (pt intubated) Cardiovascular: Positive for: Normal S1, S2, Tachycardic Abdomen: Positive for: Normal Bowel Sounds. Negative for: Distention Genitourinary/Pelvic Exam: Positive for: Other (ylon catheter in place, draining clear urine) Upper Extremity: Positive for: Normal Inspection Lower Extremity: Positive for: Normal Inspection Neurological: Positive for: Other (pt intubated and sedated) Skin: Positive for: Warm, Dry Psychiatric: Positive for: Other (pt intubated and sedated) - Medications Active Medications: Active Medications Generic Name Dose Route Start Last Admin Trade Name Freq PRN Reason Stop Dose Admin Albuterol/Ipratropium 3 ml 06/28/16 14:00 07/01/16 08:00 Duoneb 3 Mg/0.5 Mg (3 Ml) Ud INH 3 ml RQ6 LIVIER Administration Moxifloxacin HCl 250 mls @ 167 mls/hr 06/29/16 10:00 06/30/16 09:32 Avelox Iv 400mg/250ml Ns IVPB 167 mls/hr Q24H LIVIER Administration Propofol 100 mls @ 2.1 mls/hr 06/29/16 00:37 07/01/16 07:02 Diprivan IV 40 mcg/kg/min .Q24H PRN Titration TITRATE PER MD ORDER Protocol 5 MCG/KG/MIN Sodium Chloride 1,000 mls @ 100 mls/hr 06/29/16 10:30 07/01/16 01:30 Sodium Chloride 0.9% IV 100 mls/hr .Q10H LIVIER Administration Imipenem/Cilastatin Sodium 250 100 mls @ 100 mls/hr 06/30/16 11:00 07/01/16 05: 47 mg/ Sodium Chloride IVPB 100 mls/hr Q6H LIVIER Administration Potassium Chloride 100 mls @ 50 mls/hr 07/01/16 08:00 Potassium Chloride 20 Meq/100 Ml IVPB 07/01/16 09:59 ONCE ONE Insulin Human Regular 0 unit 06/30/16 13:37 07/01/16 05:49 Novolin R SC 10 unit Q6 LIVIER Administration Protocol Methylprednisolone 60 mg 06/28/16 14:00 07/01/16 07:12 Solu-Medrol IVP 60 mg Q8 LIVIER Administration Metoprolol Tartrate 25 mg 06/29/16 10:30 06/30/16 17:44 Lopressor PO 25 mg BID LIVIER Administration Montelukast Sodium 10 mg 06/28/16 22:00 06/30/16 23:05 Singulair PO 10 mg HS LIVIER Administration Pantoprazole Sodium 40 mg 06/29/16 12:15 06/30/16 09:35 Protonix Inj IVP 40 mg DAILY LIVIER Administration - Patient Studies Lab Studies: Lab Studies 07/01/16 07/01/16 07/01/16 Range/Units 06:43 05:42 05:19 WBC 7.2 (4.8-10.8) K/uL RBC 3.27 L (3.80-5.20) Mil/uL Hgb 9.2 L (11.0-16.0) g/dL Hct 28.9 L (34.0-47.0) % MCV 88.4 (81.0-99.0) fL MCH 28.0 (27.0-31.0) pg MCHC 31.7 L (33.0-37.0) g/dL RDW 16.7 H (11.5-14.5) % Plt Count 55 L (130-400) K/uL MPV 9.4 (7.2-11.7) fL Neut % (Auto) 89.8 H (50.0-75.0) % Lymph % (Auto) 5.5 L (20.0-40.0) % Bell % (Auto) 4.4 (0.0-10.0) % Eos % (Auto) 0.1 (0.0-4.0) % Baso % (Auto) 0.2 (0.0-2.0) % Neut # 6.4 (1.8-7.0) K/uL Lymph # 0.4 L (1.0-4.3) K/uL Bell # 0.3 (0.0-0.8) K/uL Eos # 0.0 (0.0-0.7) K/uL Baso # 0.0 (0.0-0.2) K/uL Neutrophils % (Manual) (50-75) % Band Neutrophils % (0-2) % Lymphocytes % (Manual) (20-40) % Monocytes % (Manual) (0-10) % Toxic Granulation Dohle Bodies Platelet Estimate (NORMAL) Polychromasia Hypochromasia (manual) Anisocytosis (manual) Microcytosis (manual) Tear Drop Cells Ovalocytes Puncture Site Rb pCO2 42 (35-45) mm/Hg pO2 101 H (80-100) mm/Hg HCO3 29.2 H (21-28) mmol/L ABG pH 7.46 H (7.35-7.45) ABG Total CO2 31.2 H (22-28) mmol/L ABG O2 Saturation 98.6 H (95-98) % ABG Base Excess 5.5 H (-2.0-3.0) mmol/L ABG Hemoglobin 9.2 L (11.7-17.4) g/dL ABG Carboxyhemoglobin 1.5 (0.5-1.5) % POC ABG HHb (Measured) 1.4 (0.0-5.0) % ABG Methemoglobin 0.9 (0.0-3.0) % Jasson Test Pos A-a O2 Difference 60.0 mm/Hg Respiratory Index 0.6 Hgb O2 Saturation 96.3 (95.0-98.0) % Mechanical Rate 16 FiO2 30.0 % Tidal Volume 500 PEEP 5 Sodium 140 (132-148) mmol/L Potassium 3.5 L (3.6-5.2) mmol/L Chloride 103 (98-107) mmol/L Carbon Dioxide 25 (22-30) mmol/L Anion Gap 16 (10-20) BUN 35 H (7-17) mg/dL Creatinine 1.5 H (0.7-1.2) MG/DL Est GFR ( Amer) 42 Est GFR (Non-Af Amer) 34 POC Glucose (mg/dL) 386 H (65-110) mg/dL Random Glucose 347 H (65-105) mg/dL Calcium 7.7 L (8.6-10.4) mg/dl Phosphorus 2.7 (2.5-4.5) mg/dL Magnesium 2.1 (1.6-2.3) mg/dL Total Bilirubin 0.4 (0.2-1.3) mg/dL AST 21 (14-36) U/L ALT 31 (9-52) U/L Alkaline Phosphatase 141 H (38-126) U/L Total Creatine Kinase (30-135) U/L CK-MB (Mass) (0.0-3.38) ng/mL Troponin I, Quant (0.00-0.120) ng/mL Total Protein 5.6 L (6.3-8.3) g/dL Albumin 2.7 L (3.5-5.0) g/dL Globulin 2.9 (2.2-3.9) gm/dL Albumin/Globulin Ratio 0.9 L (1.0-2.1) 07/01/16 06/30/16 06/30/16 Range/Units 01:04 17:49 14:02 WBC 6.7 (4.8-10.8) K/uL RBC 3.17 L (3.80-5.20) Mil/uL Hgb 8.9 L (11.0-16.0) g/dL Hct 27.6 L (34.0-47.0) % MCV 87.2 (81.0-99.0) fL MCH 27.9 (27.0-31.0) pg MCHC 32.0 L (33.0-37.0) g/dL RDW 16.5 H (11.5-14.5) % Plt Count 72 L (130-400) K/uL MPV 8.7 (7.2-11.7) fL Neut % (Auto) 96.4 H (50.0-75.0) % Lymph % (Auto) 1.7 L (20.0-40.0) % Bell % (Auto) 1.7 (0.0-10.0) % Eos % (Auto) 0.1 (0.0-4.0) % Baso % (Auto) 0.1 (0.0-2.0) % Neut # 6.5 (1.8-7.0) K/uL Lymph # 0.1 L (1.0-4.3) K/uL Bell # 0.1 (0.0-0.8) K/uL Eos # 0.0 (0.0-0.7) K/uL Baso # 0.0 (0.0-0.2) K/uL Neutrophils % (Manual) 77 H (50-75) % Band Neutrophils % 19 H* (0-2) % Lymphocytes % (Manual) 3 L (20-40) % Monocytes % (Manual) 1 (0-10) % Toxic Granulation Present Dohle Bodies Present Platelet Estimate Decreased L (NORMAL) Polychromasia Hypochromasia (manual) Anisocytosis (manual) Slight Microcytosis (manual) Tear Drop Cells Ovalocytes Slight Puncture Site pCO2 (35-45) mm/Hg pO2 (80-100) mm/Hg HCO3 (21-28) mmol/L ABG pH (7.35-7.45) ABG Total CO2 (22-28) mmol/L ABG O2 Saturation (95-98) % ABG Base Excess (-2.0-3.0) mmol/L ABG Hemoglobin (11.7-17.4) g/dL ABG Carboxyhemoglobin (0.5-1.5) % POC ABG HHb (Measured) (0.0-5.0) % ABG Methemoglobin (0.0-3.0) % Jasson Test A-a O2 Difference mm/Hg Respiratory Index Hgb O2 Saturation (95.0-98.0) % Mechanical Rate FiO2 % Tidal Volume PEEP Sodium (132-148) mmol/L Potassium (3.6-5.2) mmol/L Chloride (98-107) mmol/L Carbon Dioxide (22-30) mmol/L Anion Gap (10-20) BUN (7-17) mg/dL Creatinine (0.7-1.2) MG/DL Est GFR ( Amer) Est GFR (Non-Af Amer) POC Glucose (mg/dL) 360 H 370 H (65-110) mg/dL Random Glucose (65-105) mg/dL Calcium (8.6-10.4) mg/dl Phosphorus (2.5-4.5) mg/dL Magnesium (1.6-2.3) mg/dL Total Bilirubin (0.2-1.3) mg/dL AST (14-36) U/L ALT (9-52) U/L Alkaline Phosphatase (38-126) U/L Total Creatine Kinase 67 (30-135) U/L CK-MB (Mass) 0.74 (0.0-3.38) ng/mL Troponin I, Quant 0.1150 (0.00-0.120) ng/mL Total Protein (6.3-8.3) g/dL Albumin (3.5-5.0) g/dL Globulin (2.2-3.9) gm/dL Albumin/Globulin Ratio (1.0-2.1) 06/30/16 06/30/16 Range/Units 11:34 06:35 WBC (4.8-10.8) K/uL RBC (3.80-5.20) Mil/uL Hgb (11.0-16.0) g/dL Hct (34.0-47.0) % MCV (81.0-99.0) fL MCH (27.0-31.0) pg MCHC (33.0-37.0) g/dL RDW (11.5-14.5) % Plt Count (130-400) K/uL MPV (7.2-11.7) fL Neut % (Auto) (50.0-75.0) % Lymph % (Auto) (20.0-40.0) % Bell % (Auto) (0.0-10.0) % Eos % (Auto) (0.0-4.0) % Baso % (Auto) (0.0-2.0) % Neut # (1.8-7.0) K/uL Lymph # (1.0-4.3) K/uL Bell # (0.0-0.8) K/uL Eos # (0.0-0.7) K/uL Baso # (0.0-0.2) K/uL Neutrophils % (Manual) 81 H (50-75) % Band Neutrophils % 16 H* (0-2) % Lymphocytes % (Manual) 2 L (20-40) % Monocytes % (Manual) 1 (0-10) % Toxic Granulation Dohle Bodies Platelet Estimate Decreased L (NORMAL) Polychromasia Slight Hypochromasia (manual) Slight Anisocytosis (manual) Slight Microcytosis (manual) Slight Tear Drop Cells Slight Ovalocytes Puncture Site pCO2 (35-45) mm/Hg pO2 (80-100) mm/Hg HCO3 (21-28) mmol/L ABG pH (7.35-7.45) ABG Total CO2 (22-28) mmol/L ABG O2 Saturation (95-98) % ABG Base Excess (-2.0-3.0) mmol/L ABG Hemoglobin (11.7-17.4) g/dL ABG Carboxyhemoglobin (0.5-1.5) % POC ABG HHb (Measured) (0.0-5.0) % ABG Methemoglobin (0.0-3.0) % Jasson Test A-a O2 Difference mm/Hg Respiratory Index Hgb O2 Saturation (95.0-98.0) % Mechanical Rate FiO2 % Tidal Volume PEEP Sodium (132-148) mmol/L Potassium (3.6-5.2) mmol/L Chloride (98-107) mmol/L Carbon Dioxide (22-30) mmol/L Anion Gap (10-20) BUN (7-17) mg/dL Creatinine (0.7-1.2) MG/DL Est GFR ( Amer) Est GFR (Non-Af Amer) POC Glucose (mg/dL) 331 H (65-110) mg/dL Random Glucose (65-105) mg/dL Calcium (8.6-10.4) mg/dl Phosphorus (2.5-4.5) mg/dL Magnesium (1.6-2.3) mg/dL Total Bilirubin (0.2-1.3) mg/dL AST (14-36) U/L ALT (9-52) U/L Alkaline Phosphatase (38-126) U/L Total Creatine Kinase (30-135) U/L CK-MB (Mass) (0.0-3.38) ng/mL Troponin I, Quant (0.00-0.120) ng/mL Total Protein (6.3-8.3) g/dL Albumin (3.5-5.0) g/dL Globulin (2.2-3.9) gm/dL Albumin/Globulin Ratio (1.0-2.1) Laboratory Results - last 24 hr 06/30/16 06/30/16 06/30/16 06:35 11:34 14:02 WBC 6.7 RBC 3.17 L Hgb 8.9 L Hct 27.6 L MCV 87.2 MCH 27.9 MCHC 32.0 L RDW 16.5 H Plt Count 72 L MPV 8.7 Neut % (Auto) 96.4 H Lymph % (Auto) 1.7 L Bell % (Auto) 1.7 Eos % (Auto) 0.1 Baso % (Auto) 0.1 Neut # 6.5 Lymph # 0.1 L Bell # 0.1 Eos # 0.0 Baso # 0.0 Neutrophils % (Manual) 81 H 77 H Band Neutrophils % 16 H* 19 H* Lymphocytes % (Manual) 2 L 3 L Monocytes % (Manual) 1 1 Toxic Granulation Present Dohle Bodies Present Platelet Estimate Decreased L Decreased L Polychromasia Slight Hypochromasia (manual) Slight Anisocytosis (manual) Slight Slight Microcytosis (manual) Slight Tear Drop Cells Slight Ovalocytes Slight Puncture Site pCO2 pO2 HCO3 ABG pH ABG Total CO2 ABG O2 Saturation ABG Base Excess ABG Hemoglobin ABG Carboxyhemoglobin POC ABG HHb (Measured) ABG Methemoglobin Jasson Test A-a O2 Difference Respiratory Index Hgb O2 Saturation Mechanical Rate FiO2 Tidal Volume PEEP Sodium Potassium Chloride Carbon Dioxide Anion Gap BUN Creatinine Est GFR ( Amer) Est GFR (Non-Af Amer) POC Glucose (mg/dL) 331 H Random Glucose Calcium Phosphorus Magnesium Total Bilirubin AST ALT Alkaline Phosphatase Total Creatine Kinase 67 CK-MB (Mass) 0.74 Troponin I, Quant 0.1150 Total Protein Albumin Globulin Albumin/Globulin Ratio 06/30/16 07/01/16 07/01/16 17:49 01:04 05:19 WBC RBC Hgb Hct MCV MCH MCHC RDW Plt Count MPV Neut % (Auto) Lymph % (Auto) Bell % (Auto) Eos % (Auto) Baso % (Auto) Neut # Lymph # Bell # Eos # Baso # Neutrophils % (Manual) Band Neutrophils % Lymphocytes % (Manual) Monocytes % (Manual) Toxic Granulation Dohle Bodies Platelet Estimate Polychromasia Hypochromasia (manual) Anisocytosis (manual) Microcytosis (manual) Tear Drop Cells Ovalocytes Puncture Site Rb pCO2 42 pO2 101 H HCO3 29.2 H ABG pH 7.46 H ABG Total CO2 31.2 H ABG O2 Saturation 98.6 H ABG Base Excess 5.5 H ABG Hemoglobin 9.2 L ABG Carboxyhemoglobin 1.5 POC ABG HHb (Measured) 1.4 ABG Methemoglobin 0.9 Jasson Test Pos A-a O2 Difference 60.0 Respiratory Index 0.6 Hgb O2 Saturation 96.3 Mechanical Rate 16 FiO2 30.0 Tidal Volume 500 PEEP 5 Sodium Potassium Chloride Carbon Dioxide Anion Gap BUN Creatinine Est GFR ( Amer) Est GFR (Non-Af Amer) POC Glucose (mg/dL) 370 H 360 H Random Glucose Calcium Phosphorus Magnesium Total Bilirubin AST ALT Alkaline Phosphatase Total Creatine Kinase CK-MB (Mass) Troponin I, Quant Total Protein Albumin Globulin Albumin/Globulin Ratio 07/01/16 07/01/16 05:42 06:43 WBC 7.2 RBC 3.27 L Hgb 9.2 L Hct 28.9 L MCV 88.4 MCH 28.0 MCHC 31.7 L RDW 16.7 H Plt Count 55 L MPV 9.4 Neut % (Auto) 89.8 H Lymph % (Auto) 5.5 L Bell % (Auto) 4.4 Eos % (Auto) 0.1 Baso % (Auto) 0.2 Neut # 6.4 Lymph # 0.4 L Bell # 0.3 Eos # 0.0 Baso # 0.0 Neutrophils % (Manual) Band Neutrophils % Lymphocytes % (Manual) Monocytes % (Manual) Toxic Granulation Dohle Bodies Platelet Estimate Polychromasia Hypochromasia (manual) Anisocytosis (manual) Microcytosis (manual) Tear Drop Cells Ovalocytes Puncture Site pCO2 pO2 HCO3 ABG pH ABG Total CO2 ABG O2 Saturation ABG Base Excess ABG Hemoglobin ABG Carboxyhemoglobin POC ABG HHb (Measured) ABG Methemoglobin Jasson Test A-a O2 Difference Respiratory Index Hgb O2 Saturation Mechanical Rate FiO2 Tidal Volume PEEP Sodium 140 Potassium 3.5 L Chloride 103 Carbon Dioxide 25 Anion Gap 16 BUN 35 H Creatinine 1.5 H Est GFR ( Amer) 42 Est GFR (Non-Af Amer) 34 POC Glucose (mg/dL) 386 H Random Glucose 347 H Calcium 7.7 L Phosphorus 2.7 Magnesium 2.1 Total Bilirubin 0.4 AST 21 ALT 31 Alkaline Phosphatase 141 H Total Creatine Kinase CK-MB (Mass) Troponin I, Quant Total Protein 5.6 L Albumin 2.7 L Globulin 2.9 Albumin/Globulin Ratio 0.9 L Fingerstick Blood Sugar Results: 386 Critical Care Progress Note - Nutrition Nutrition: Nutrition Category Date Time Status NPO Diet [DIET] Diets 06/28/16 Dinner Active Assessment/Plan - Assessment and Plan (Free Text) Assessment: 70-year-old female with history of anemia arthritis, asthma, cardiac arrhythmias , COPD hypertension, diabetes, hypercholesteremia, kidney stones, lung cancer, pulmonary embolism, renal insufficiency. Patient came to the emergency room with the sudden onset of shortness of breath. Pt intubated and sedated. On Avelox and Pramaxin for HAP and UTI. Plan: Neuro: Pt intubated and sedated - Propofol titrated for sedation - PVRC: FiO2: 30%, PEEP 5, RR 16, Tvolume 500, currently on CPAP 07/26 - if patient tolerates she will be extubated. Endo: Hx Diabetes ISS - HIGH Q6H Accuchecks Q6H B+, high of 331 this AM 2/2 to solumedrol Cardio: Tachycardic (100's), Normotensive - Lopressor 25mg PO BID Elevated troponins - 0.92, 0.384, 0.1150 Hyperkalemia 5.7 on admission - Kayexalate given, repeat 4.8, - Patient currently 3.5 - given KCL 20 MEQ Pulm: Hx of lobectomy, lung CA, chemotherapy Intubated - pt initially on BiPap, remained hypoxic, electively intubated -Vent settings: PVRC: FiO2: 30%, PEEP 5, RR 16, Tvolume 500, currently on CPAP - if patient tolerates she will be extubated. -ABG improving CXR (06/29/16): ETT tube in good position. NGT in good position. Persistent right suprahilar mass. Smaller nodular density superior-lateral to mass may represent nodules. Nodularity at right lung base may represent shadows with ribs and vessels. Additional nodular density seen over costophrenic angles (see full report) - Pt noted green/black sputum for several days before admission - Avelox 400mg IV Q24H, Primaxin Q6H Hx of COPD - Solumedrol tapered to 40mg IVP Q8H - Singulair 10mg PO HS GI: Tubefeedings: Diabetisource, Goal 45ml/hr /Renal: BUN/Cr 38/1.9, currrently 35/ 1.5 UA: 2+ protein, 3+ glucose, Nitrate/LE negative, RBC 54, Bacteria occasional Urine cx (06/26/16): Gram negative bolivar Avelox and Pramaxin for HAP and UTI NS @ 100cc/hr Monitor I/Os Heme/Onc: Hx of anemia - H/H 9/8/32.1 Coagulopathy: - Inr 4.7, PT 57.6, PTT 53 Hx of PE- patient was on coumadin - INR 3.7, PT 44.7, PTT 41 - will hold coumadin until INR < 2 ID: Upon admission: Leukocytosis 28, Tachycardic, left shift, bandemia 17 Hospital Acquired Pneumonia - Avelox 400mg IV Q24H, Primaxin Q6H UTI - Urine cx (06/26/16): Gram negative bolivar F/U Dr. Paz hooks- help appreciated Blood cx (06/28/16): no growth for 24 hours x 2 Sputum Cx (06/29/16): No growth MRSA screen (06/28/16): not detected Hx of Benzo/Alcohol Abuse - UDS negative Prophylaxis: DVT: SCDs VTE: Contraindicated due to thrombocytopenia GI: Protonix 40mg IVP daily Palliative Care consulted DW Lauren Nassar DO, PGY-1 <Kamar Neville S - Last Filed: 07/01/16 15:59> CCU Objective - Vital Signs / Intake & Output Vital Signs (Last 4 hours): Vital Signs Temp Pulse Resp BP Pulse Ox 07/01/16 14:03 108 H 26 H 158/80 H 100 07/01/16 14:00 103 H 19 100 07/01/16 13:03 93 H 24 168/87 H 93 L 07/01/16 12:03 104 H 25 H 168/90 H 94 L 07/01/16 12:00 97.7 F Intake and Output (Last 8hrs): Intake & Output 07/01/16 07/01/16 07/01/16 06:59 14:59 22:59 Intake Total 1388.0 1074.6 100 Output Total 320 530 85 Balance 1068.0 544.6 15 Weight 156 lb Intake: IV 0 0 Intake, IV Amount 1068.0 984.6 100 Right Port-A-Cath 168.0 284.6 Right Distal Port 900 700 100 Tube Feeding 320 90 Output: Urine 320 530 85 2-way Urethral 320 530 85 - Medications Active Medications: Active Medications Generic Name Dose Route Start Last Admin Trade Name Freq PRN Reason Stop Dose Admin Albuterol/Ipratropium 3 ml 06/28/16 14:00 07/01/16 13:44 Duoneb 3 Mg/0.5 Mg (3 Ml) Ud INH 3 ml RQ6 LIVIER Administration Moxifloxacin HCl 250 mls @ 167 mls/hr 06/29/16 10:00 07/01/16 10:26 Avelox Iv 400mg/250ml Ns IVPB 167 mls/hr Q24H LIVIER Administration Propofol 100 mls @ 2.1 mls/hr 06/29/16 00:37 07/01/16 08:37 Diprivan IV 16.8 mls/hr .Q24H PRN Administration TITRATE PER MD ORDER Protocol 5 MCG/KG/MIN Sodium Chloride 1,000 mls @ 100 mls/hr 06/29/16 10:30 07/01/16 15:34 Sodium Chloride 0.9% IV 100 mls/hr .Q10H LIVIER Administration Imipenem/Cilastatin Sodium 250 100 mls @ 100 mls/hr 06/30/16 11:00 07/01/16 12: 11 mg/ Sodium Chloride IVPB 100 mls/hr Q6H LIVIER Administration Insulin Human Regular 0 unit 06/30/16 13:37 07/01/16 13:12 Novolin R SC 8 unit Q6 LIVIER Administration Protocol Methylprednisolone 40 mg 07/01/16 14:00 07/01/16 15:31 Solu-Medrol IVP 40 mg Q8 LIVIER Administration Metoprolol Tartrate 25 mg 06/29/16 10:30 07/01/16 10:18 Lopressor PO 25 mg BID LIVIER Administration Montelukast Sodium 10 mg 06/28/16 22:00 06/30/16 23:05 Singulair PO 10 mg HS LIVIER Administration Pantoprazole Sodium 40 mg 06/29/16 12:15 07/01/16 12:11 Protonix Inj IVP 40 mg DAILY LIVIER Administration - Patient Studies Lab Studies: Microbiology Studies 06/29/16 10:19 Gram Stain - Final Trachasp Sputum Culture - Final NORMAL ORAL PING Lab Studies 07/01/16 07/01/16 07/01/16 Range/Units 12:17 09:38 06:43 WBC 7.2 (4.8-10.8) K/uL RBC 3.27 L (3.80-5.20) Mil/uL Hgb 9.2 L (11.0-16.0) g/dL Hct 28.9 L (34.0-47.0) % MCV 88.4 (81.0-99.0) fL MCH 28.0 (27.0-31.0) pg MCHC 31.7 L (33.0-37.0) g/dL RDW 16.7 H (11.5-14.5) % Plt Count 55 L (130-400) K/uL MPV 9.4 (7.2-11.7) fL Neut % (Auto) 89.8 H (50.0-75.0) % Lymph % (Auto) 5.5 L (20.0-40.0) % Bell % (Auto) 4.4 (0.0-10.0) % Eos % (Auto) 0.1 (0.0-4.0) % Baso % (Auto) 0.2 (0.0-2.0) % Neut # 6.4 (1.8-7.0) K/uL Lymph # 0.4 L (1.0-4.3) K/uL Bell # 0.3 (0.0-0.8) K/uL Eos # 0.0 (0.0-0.7) K/uL Baso # 0.0 (0.0-0.2) K/uL Neutrophils % (Manual) 79 H (50-75) % Band Neutrophils % 14 H* (0-2) % Lymphocytes % (Manual) 5 L (20-40) % Monocytes % (Manual) 2 (0-10) % Platelet Estimate Decreased L (NORMAL) Hypochromasia (manual) Slight Poikilocytosis (manual Slight Anisocytosis (manual) Slight Microcytosis (manual) Slight Macrocytosis (manual) Slight Tear Drop Cells Slight PT 44.7 H* D (9.7-12.2) SECONDS INR 3.7 D APTT 41 H D (21-34) SECONDS Puncture Site pCO2 (35-45) mm/Hg pO2 (80-100) mm/Hg HCO3 (21-28) mmol/L ABG pH (7.35-7.45) ABG Total CO2 (22-28) mmol/L ABG O2 Saturation (95-98) % ABG Base Excess (-2.0-3.0) mmol/L ABG Hemoglobin (11.7-17.4) g/dL ABG Carboxyhemoglobin (0.5-1.5) % POC ABG HHb (Measured) (0.0-5.0) % ABG Methemoglobin (0.0-3.0) % Jasson Test A-a O2 Difference mm/Hg Respiratory Index Hgb O2 Saturation (95.0-98.0) % Mechanical Rate FiO2 % Tidal Volume PEEP Sodium 140 (132-148) mmol/L Potassium 3.5 L (3.6-5.2) mmol/L Chloride 103 (98-107) mmol/L Carbon Dioxide 25 (22-30) mmol/L Anion Gap 16 (10-20) BUN 35 H (7-17) mg/dL Creatinine 1.5 H (0.7-1.2) MG/DL Est GFR ( Amer) 42 Est GFR (Non-Af Amer) 34 POC Glucose (mg/dL) 345 H (65-110) mg/dL Random Glucose 347 H (65-105) mg/dL Calcium 7.7 L (8.6-10.4) mg/dl Phosphorus 2.7 (2.5-4.5) mg/dL Magnesium 2.1 (1.6-2.3) mg/dL Total Bilirubin 0.4 (0.2-1.3) mg/dL AST 21 (14-36) U/L ALT 31 (9-52) U/L Alkaline Phosphatase 141 H (38-126) U/L Total Protein 5.6 L (6.3-8.3) g/dL Albumin 2.7 L (3.5-5.0) g/dL Globulin 2.9 (2.2-3.9) gm/dL Albumin/Globulin Ratio 0.9 L (1.0-2.1) 07/01/16 07/01/16 07/01/16 Range/Units 05:42 05:19 01:04 WBC (4.8-10.8) K/uL RBC (3.80-5.20) Mil/uL Hgb (11.0-16.0) g/dL Hct (34.0-47.0) % MCV (81.0-99.0) fL MCH (27.0-31.0) pg MCHC (33.0-37.0) g/dL RDW (11.5-14.5) % Plt Count (130-400) K/uL MPV (7.2-11.7) fL Neut % (Auto) (50.0-75.0) % Lymph % (Auto) (20.0-40.0) % Bell % (Auto) (0.0-10.0) % Eos % (Auto) (0.0-4.0) % Baso % (Auto) (0.0-2.0) % Neut # (1.8-7.0) K/uL Lymph # (1.0-4.3) K/uL Bell # (0.0-0.8) K/uL Eos # (0.0-0.7) K/uL Baso # (0.0-0.2) K/uL Neutrophils % (Manual) (50-75) % Band Neutrophils % (0-2) % Lymphocytes % (Manual) (20-40) % Monocytes % (Manual) (0-10) % Platelet Estimate (NORMAL) Hypochromasia (manual) Poikilocytosis (manual Anisocytosis (manual) Microcytosis (manual) Macrocytosis (manual) Tear Drop Cells PT (9.7-12.2) SECONDS INR APTT (21-34) SECONDS Puncture Site Rb pCO2 42 (35-45) mm/Hg pO2 101 H (80-100) mm/Hg HCO3 29.2 H (21-28) mmol/L ABG pH 7.46 H (7.35-7.45) ABG Total CO2 31.2 H (22-28) mmol/L ABG O2 Saturation 98.6 H (95-98) % ABG Base Excess 5.5 H (-2.0-3.0) mmol/L ABG Hemoglobin 9.2 L (11.7-17.4) g/dL ABG Carboxyhemoglobin 1.5 (0.5-1.5) % POC ABG HHb (Measured) 1.4 (0.0-5.0) % ABG Methemoglobin 0.9 (0.0-3.0) % Jasson Test Pos A-a O2 Difference 60.0 mm/Hg Respiratory Index 0.6 Hgb O2 Saturation 96.3 (95.0-98.0) % Mechanical Rate 16 FiO2 30.0 % Tidal Volume 500 PEEP 5 Sodium (132-148) mmol/L Potassium (3.6-5.2) mmol/L Chloride (98-107) mmol/L Carbon Dioxide (22-30) mmol/L Anion Gap (10-20) BUN (7-17) mg/dL Creatinine (0.7-1.2) MG/DL Est GFR ( Amer) Est GFR (Non-Af Amer) POC Glucose (mg/dL) 386 H 360 H (65-110) mg/dL Random Glucose (65-105) mg/dL Calcium (8.6-10.4) mg/dl Phosphorus (2.5-4.5) mg/dL Magnesium (1.6-2.3) mg/dL Total Bilirubin (0.2-1.3) mg/dL AST (14-36) U/L ALT (9-52) U/L Alkaline Phosphatase (38-126) U/L Total Protein (6.3-8.3) g/dL Albumin (3.5-5.0) g/dL Globulin (2.2-3.9) gm/dL Albumin/Globulin Ratio (1.0-2.1) 06/30/16 Range/Units 17:49 WBC (4.8-10.8) K/uL RBC (3.80-5.20) Mil/uL Hgb (11.0-16.0) g/dL Hct (34.0-47.0) % MCV (81.0-99.0) fL MCH (27.0-31.0) pg MCHC (33.0-37.0) g/dL RDW (11.5-14.5) % Plt Count (130-400) K/uL MPV (7.2-11.7) fL Neut % (Auto) (50.0-75.0) % Lymph % (Auto) (20.0-40.0) % Bell % (Auto) (0.0-10.0) % Eos % (Auto) (0.0-4.0) % Baso % (Auto) (0.0-2.0) % Neut # (1.8-7.0) K/uL Lymph # (1.0-4.3) K/uL Bell # (0.0-0.8) K/uL Eos # (0.0-0.7) K/uL Baso # (0.0-0.2) K/uL Neutrophils % (Manual) (50-75) % Band Neutrophils % (0-2) % Lymphocytes % (Manual) (20-40) % Monocytes % (Manual) (0-10) % Platelet Estimate (NORMAL) Hypochromasia (manual) Poikilocytosis (manual Anisocytosis (manual) Microcytosis (manual) Macrocytosis (manual) Tear Drop Cells PT (9.7-12.2) SECONDS INR APTT (21-34) SECONDS Puncture Site pCO2 (35-45) mm/Hg pO2 (80-100) mm/Hg HCO3 (21-28) mmol/L ABG pH (7.35-7.45) ABG Total CO2 (22-28) mmol/L ABG O2 Saturation (95-98) % ABG Base Excess (-2.0-3.0) mmol/L ABG Hemoglobin (11.7-17.4) g/dL ABG Carboxyhemoglobin (0.5-1.5) % POC ABG HHb (Measured) (0.0-5.0) % ABG Methemoglobin (0.0-3.0) % Jasson Test A-a O2 Difference mm/Hg Respiratory Index Hgb O2 Saturation (95.0-98.0) % Mechanical Rate FiO2 % Tidal Volume PEEP Sodium (132-148) mmol/L Potassium (3.6-5.2) mmol/L Chloride (98-107) mmol/L Carbon Dioxide (22-30) mmol/L Anion Gap (10-20) BUN (7-17) mg/dL Creatinine (0.7-1.2) MG/DL Est GFR ( Amer) Est GFR (Non-Af Amer) POC Glucose (mg/dL) 370 H (65-110) mg/dL Random Glucose (65-105) mg/dL Calcium (8.6-10.4) mg/dl Phosphorus (2.5-4.5) mg/dL Magnesium (1.6-2.3) mg/dL Total Bilirubin (0.2-1.3) mg/dL AST (14-36) U/L ALT (9-52) U/L Alkaline Phosphatase (38-126) U/L Total Protein (6.3-8.3) g/dL Albumin (3.5-5.0) g/dL Globulin (2.2-3.9) gm/dL Albumin/Globulin Ratio (1.0-2.1) Laboratory Results - last 24 hr 06/30/16 07/01/16 07/01/16 17:49 01:04 05:19 WBC RBC Hgb Hct MCV MCH MCHC RDW Plt Count MPV Neut % (Auto) Lymph % (Auto) Bell % (Auto) Eos % (Auto) Baso % (Auto) Neut # Lymph # Bell # Eos # Baso # Neutrophils % (Manual) Band Neutrophils % Lymphocytes % (Manual) Monocytes % (Manual) Platelet Estimate Hypochromasia (manual) Poikilocytosis (manual Anisocytosis (manual) Microcytosis (manual) Macrocytosis (manual) Tear Drop Cells PT INR APTT Puncture Site Rb pCO2 42 pO2 101 H HCO3 29.2 H ABG pH 7.46 H ABG Total CO2 31.2 H ABG O2 Saturation 98.6 H ABG Base Excess 5.5 H ABG Hemoglobin 9.2 L ABG Carboxyhemoglobin 1.5 POC ABG HHb (Measured) 1.4 ABG Methemoglobin 0.9 Jasson Test Pos A-a O2 Difference 60.0 Respiratory Index 0.6 Hgb O2 Saturation 96.3 Mechanical Rate 16 FiO2 30.0 Tidal Volume 500 PEEP 5 Sodium Potassium Chloride Carbon Dioxide Anion Gap BUN Creatinine Est GFR ( Amer) Est GFR (Non-Af Amer) POC Glucose (mg/dL) 370 H 360 H Random Glucose Calcium Phosphorus Magnesium Total Bilirubin AST ALT Alkaline Phosphatase Total Protein Albumin Globulin Albumin/Globulin Ratio 07/01/16 07/01/16 07/01/16 05:42 06:43 09:38 WBC 7.2 RBC 3.27 L Hgb 9.2 L Hct 28.9 L MCV 88.4 MCH 28.0 MCHC 31.7 L RDW 16.7 H Plt Count 55 L MPV 9.4 Neut % (Auto) 89.8 H Lymph % (Auto) 5.5 L Bell % (Auto) 4.4 Eos % (Auto) 0.1 Baso % (Auto) 0.2 Neut # 6.4 Lymph # 0.4 L Bell # 0.3 Eos # 0.0 Baso # 0.0 Neutrophils % (Manual) 79 H Band Neutrophils % 14 H* Lymphocytes % (Manual) 5 L Monocytes % (Manual) 2 Platelet Estimate Decreased L Hypochromasia (manual) Slight Poikilocytosis (manual Slight Anisocytosis (manual) Slight Microcytosis (manual) Slight Macrocytosis (manual) Slight Tear Drop Cells Slight PT 44.7 H* D INR 3.7 D APTT 41 H D Puncture Site pCO2 pO2 HCO3 ABG pH ABG Total CO2 ABG O2 Saturation ABG Base Excess ABG Hemoglobin ABG Carboxyhemoglobin POC ABG HHb (Measured) ABG Methemoglobin Jasson Test A-a O2 Difference Respiratory Index Hgb O2 Saturation Mechanical Rate FiO2 Tidal Volume PEEP Sodium 140 Potassium 3.5 L Chloride 103 Carbon Dioxide 25 Anion Gap 16 BUN 35 H Creatinine 1.5 H Est GFR ( Amer) 42 Est GFR (Non-Af Amer) 34 POC Glucose (mg/dL) 386 H Random Glucose 347 H Calcium 7.7 L Phosphorus 2.7 Magnesium 2.1 Total Bilirubin 0.4 AST 21 ALT 31 Alkaline Phosphatase 141 H Total Protein 5.6 L Albumin 2.7 L Globulin 2.9 Albumin/Globulin Ratio 0.9 L 07/01/16 12:17 WBC RBC Hgb Hct MCV MCH MCHC RDW Plt Count MPV Neut % (Auto) Lymph % (Auto) Bell % (Auto) Eos % (Auto) Baso % (Auto) Neut # Lymph # Bell # Eos # Baso # Neutrophils % (Manual) Band Neutrophils % Lymphocytes % (Manual) Monocytes % (Manual) Platelet Estimate Hypochromasia (manual) Poikilocytosis (manual Anisocytosis (manual) Microcytosis (manual) Macrocytosis (manual) Tear Drop Cells PT INR APTT Puncture Site pCO2 pO2 HCO3 ABG pH ABG Total CO2 ABG O2 Saturation ABG Base Excess ABG Hemoglobin ABG Carboxyhemoglobin POC ABG HHb (Measured) ABG Methemoglobin Jasson Test A-a O2 Difference Respiratory Index Hgb O2 Saturation Mechanical Rate FiO2 Tidal Volume PEEP Sodium Potassium Chloride Carbon Dioxide Anion Gap BUN Creatinine Est GFR ( Amer) Est GFR (Non-Af Amer) POC Glucose (mg/dL) 345 H Random Glucose Calcium Phosphorus Magnesium Total Bilirubin AST ALT Alkaline Phosphatase Total Protein Albumin Globulin Albumin/Globulin Ratio Critical Care Progress Note - Nutrition Nutrition: Nutrition Category Date Time Status Liquid Diet [DIET] Diets 07/01/16 Dinner Active Attending/Attestation - Attestation I have personally seen and examined this patient.: Yes I have fully participated in the care of the patient.: Yes I have reviewed all pertinent clinical information: Yes Notes (Text): 07/01/16 15:57 Patient seen and examined in the intensive care unit. Case discussed with house staff in the morning rounds. Patient extubated after weaning trial. Comfortable in no respiratory distress postextubation Able to swallow and started on clear liquids Continue antibiotics and present treatment. Taper IV steroids Glycemic control
[2016-07-01 08:27] LABS: NEUTROPHIL 79 % (50-75); TOTAL CELLS COUNTED 100
--- NOTE | 2016-07-01 08:54 | RAD ---
HISTORY: intubated COMPARISON: 06/30/2016 FINDINGS: LUNGS: Lines and tubes in stable position. Persistent large right suprahilar mass. Adjacent scattered nodular densities surrounding the mass. Venous congestion. Question trace right pleural effusion. Mild nodularity in the left midlung field. PLEURA: As above. CARDIOVASCULAR: Normal. OSSEOUS STRUCTURES: No significant abnormalities. VISUALIZED UPPER ABDOMEN: Normal. OTHER FINDINGS: None. IMPRESSION: No significant interval change.
[2016-07-01 10:04] LABS: INR 3.7
[2016-07-01] MEDS: Moxifloxacin IV 400mg/250ml NS 250 ML IVPB SCH (10:26)
--- NOTE | 2016-07-01 21:34 | CP.PCM.PN ---
Subjective - Date & Time of Evaluation Date of Evaluation: 07/01/16 Time of Evaluation: 03:00 - Subjective Subjective: dictated Objective - Vital Signs/Intake and Output Vital Signs (last 24 hours): Temp Pulse Resp BP Pulse Ox 97.7 F 102 H 24 163/97 H 100 07/01/16 12:00 07/01/16 19:03 07/01/16 19:03 07/01/16 19:03 07/01/16 19:03 Intake and Output: 07/01/16 07/02/16 18:59 06:59 Intake Total 2304.6 100 Output Total 915 40 Balance 1389.6 60 - Medications Medications: Current Medications Albuterol/Ipratropium (Duoneb 3 Mg/0.5 Mg (3 Ml) Ud) 3 ml INH RQ6 [facility] Last Admin: 07/01/16 19:45 Dose: 3 ml Moxifloxacin HCl (Avelox Iv 400mg/250ml Ns) 250 mls @ 167 mls/hr IVPB Q24H [facility] Last Admin: 07/01/16 10:26 Dose: 167 mls/hr Propofol (Diprivan) 100 mls @ 2.1 mls/hr IV .Q24H PRN; Protocol; 5 MCG/KG/MIN PRN Reason: TITRATE PER MD ORDER Last Admin: 07/01/16 08:37 Dose: 16.8 mls/hr Sodium Chloride (Sodium Chloride 0.9%) 1,000 mls @ 100 mls/hr IV .Q10H [facility] Last Admin: 07/01/16 15:34 Dose: 100 mls/hr Imipenem/Cilastatin Sodium 250 (mg/ Sodium Chloride) 100 mls @ 100 mls/hr IVPB Q6H [facility] Last Admin: 07/01/16 18:40 Dose: 100 mls/hr Insulin Human Regular (Novolin R) 0 unit SC Q6 [facility] PRN Reason: Protocol Last Admin: 07/01/16 18:39 Dose: 6 unit Methylprednisolone (Solu-Medrol) 40 mg IVP Q8 [facility] Last Admin: 07/01/16 21:16 Dose: 40 mg Metoprolol Tartrate (Lopressor) 25 mg PO BID [facility] Last Admin: 07/01/16 18:40 Dose: 25 mg Montelukast Sodium (Singulair) 10 mg PO HS [facility] Last Admin: 07/01/16 21:12 Dose: 10 mg Pantoprazole Sodium (Protonix Inj) 40 mg IVP DAILY [facility] Last Admin: 07/01/16 12:11 Dose: 40 mg - Labs Labs: 07/01/16 06:43 07/01/16 06:43 PT 44.7 SECONDS (9.7-12.2) H* D 07/01/16 09:38 INR 3.7 D 07/01/16 09:38 APTT 41 SECONDS (21-34) H D 07/01/16 09:38
[2016-07-01] MEDS: Cefepime IV 1 gm in Dextrose 50 ML IVPB SCH (22:44)
--- NOTE | 2016-07-01 22:55 | PN ---
DATE: 07/01/2016 SUBJECTIVE: The patient was seen today around 3:00 or a little less and she was extubated at the [facility] time. She was being placed on a Ventimask and was sitting on a chair. She was awake and she was t rying the Ventimask. Head was atraumatic, normocephalic. She offered no complaints and was trying t o figure out. PHYSICAL EXAMINATION: VITAL SIGNS: She remains afebrile. T-max is 97.7, pulse of 113-120, respirations were 24 and satura tion was 94% at that time when I saw her. NECK: Supple. LUNGS: Remain with decreased breath sounds bilaterally. HEART: S1, S2 is tachycardic. ABDOMEN: Soft, nontender, no guarding, no rigidity present. EXTREMITIES: Had no edema, clubbing or cyanosis. LABORATORY DATA: White count remains to be 7.2, hemoglobin 9.2, hematocrit 28.9, platelet count is 5 5, which is low. Sodium is 140, potassium 3.5, chloride 103, CO2 is 25, anion gap is 16, BUN is 35, creatinine is 1.5. Cultures: Urine has gram-negative rods. Sputum has normal sallie; ID of which is pending at this time. Actually, it came back less than 10,000 gram-negative rods. PLAN: So at this time, since her platelets are decreasing, I would change imipenem to Maxipime and f ollow. Creatinine is okay, but platelets are decreasing. heparin. She is , albuterol, a nd she is also supposed to be on her pulmonary embolism medication, which I am not seeing at this [facility]. So I think it would be better to change it to Maxipime as it will cover the lung source better an d she does have a lung mass and has less than 10,000 gram-negative rods in the urine. She has histor y of kidney stones and is status post respiratory failure and was just extubated today and prognosis remains guarded. Bryan Mullen MD cc: [id number] TT: 07/01/2016 22:55:14 Confirmation # [id number] Dictation # [id number] mn
--- NOTE | 2016-07-01 23:29 | PN ---
DATE: 07/01/2016 The patient is extubated and now the patient is going to bed and did not have any shortness of breath at rest. No chest pain, no palpitations. The patient is seen in the ICU. PHYSICAL EXAMINATION: VITAL SIGNS: The patient has a blood pressure of 162/97, pulse is 102, respirations 24, and O2 satur ation 100% on nasal cannula. NECK: Supple. LUNGS: There are some rales bilaterally. HEART: Tachycardic. ABDOMEN: Soft and nontender. Positive hydronephrosis. EXTREMITIES: There is no edema. LABORATORY DATA: WBC 7.2, hemoglobin 9.2, hematocrit 28.9, platelets 65 and bands 14. PLAN: We are going to continue the antibiotic therapy and continue also p.o. medication as needed. The patient is still on Solu-Medrol. Isak Mark MD cc: [id number] TT: 07/01/2016 23:29:23 Confirmation # [id number] Dictation # [id number] jose miguel
[2016-07-02] MEDS: (Novolin R) Insulin Human Regular 100 units/ml vial SC SCH ×5 (00:41→22:02)
[2016-07-02] MEDS: Albuterol-Ipratrop 3 mg / 0.5 (3 ml) UD INH SCH ×4 (03:15→19:31)
[2016-07-02] MEDS: MethylPREDNISolone 40 mg Vial IVP SCH ×3 (05:42→22:03)
[2016-07-02] MEDS: Sodium Chloride 0.9% 1,000 ML IV SCH ×3 (05:43→17:42)
[2016-07-02 06:45] LABS: BASO % 0.1 % (0.0-2.0); HEMATOCRIT 26.8 % (34.0-47.0); LYMPH # 0.4 K/uL (1.0-4.3); LYMPH % 3.8 % (20.0-40.0); MEAN CELL VOLUME 88.4 fL (81.0-99.0); MEAN CORPUSCULAR HEMOGLOBIN 27.4 pg (27.0-31.0); MEAN PLATELET VOLUME 8.9 fL (7.2-11.7); MONO # 0.5 K/uL (0.0-0.8); MONO % 5.3 % (0.0-10.0); NRBC % 0.1 % (0.0-2.0); PLATELET COUNT 47 K/uL (130-400); RED CELL DISTRIBUTION WIDTH 16.4 % (11.5-14.5); WHITE BLOOD COUNT 9.7 K/uL (4.8-10.8)
[2016-07-02 06:49] LABS: POTASSIUM 3.5 mmol/L (3.6-5.2)
[2016-07-02 06:51] LABS: ALB/GLOB RATIO 0.9 (1.0-2.1); BILIRUBIN,TOTAL 0.7 mg/dL (0.2-1.3); TOTAL PROTEIN 5.5 g/dL (6.3-8.3)
[2016-07-02 06:52] LABS: CALCIUM 7.4 mg/dl (8.6-10.4); MAGNESIUM 1.7 mg/dL (1.6-2.3); PHOSPHOROUS 3.1 mg/dL (2.5-4.5)
[2016-07-02 08:42] LABS: NEUTROPHIL 79 % (50-75); TOTAL CELLS COUNTED 100
[2016-07-02] MEDS: Moxifloxacin IV 400mg/250ml NS 250 ML IVPB SCH (09:17)
[2016-07-02] MEDS: Cefepime IV 1 gm in Dextrose 50 ML IVPB SCH ×2 (09:20→21:00)
--- NOTE | 2016-07-02 09:24 | RAD ---
HISTORY: follow up PNA COMPARISON: Chest x-ray performed 07/01/16 TECHNIQUE: Chest, one view. FINDINGS: Right-sided MediPort extends expected location of the cavoatrial junction. Interval removal of endotracheal tube and nasogastric tube. LUNGS: Persistent large right infrahilar mass. Scattered nodular densities surrounding this mass. Nodular density in the left mid lung field. Mild venous congestion. Please note that chest x-ray has limited sensitivity for the detection of pulmonary masses. PLEURA: Probable small right pleural effusion. No definite pneumothorax . CARDIOVASCULAR: Heart size appears within normal limits. OSSEOUS STRUCTURES: No acute osseous abnormality identified. VISUALIZED UPPER ABDOMEN: Unremarkable. OTHER FINDINGS: None. IMPRESSION: Support lines and tubes as above. Otherwise no significant interval change.
[2016-07-02] MEDS ORDERED: Potassium Chloride 20 mEq ER Tab PO ONE (10:00)
--- NOTE | 2016-07-02 12:02 | CP.CCUPN ---
<La Aguilar - Last Filed: 07/02/16 11:49> CCU Subjective - Physician Review Subjective (Free Text): Patient was seen and examined at bedside. Patient was extubated yesterday. Patient currently tolerating full liquid diet. On 2L NC in no acute distress. Patient is currently on solumedrol 20mg IV Q12H. CCU Objective - Vital Signs / Intake & Output Vital Signs (Last 4 hours): Vital Signs Temp Pulse Resp BP Pulse Ox 07/02/16 11:00 90 26 H 100 07/02/16 10:35 94 H 18 100 07/02/16 10:03 107 H 20 150/82 100 07/02/16 10:00 107 H 20 100 07/02/16 09:16 150/77 07/02/16 09:03 112 H 21 150/77 100 07/02/16 09:00 102 H 19 100 07/02/16 08:44 109 H 17 100 07/02/16 08:03 79 16 140/76 100 07/02/16 08:00 98.1 F 66 14 100 Intake and Output (Last 8hrs): Intake & Output 07/01/16 07/02/16 07/02/16 22:59 06:59 14:59 Intake Total 1810 800 670 Output Total 575 600 350 Balance 1235 200 320 Weight 156 lb Intake: Intake, IV Amount 800 800 550 Right Distal Port 800 800 550 Oral 1010 0 120 Output: Urine 575 600 350 2-way Urethral 575 600 350 Other: # Bowel Movements 0 0 0 - Physical Exam Head: Positive for: Atraumatic, Normocephalic Pupils: Positive for: PERRL Extroacular Muscles: Positive for: EOMI Mouth: Positive for: Moist Mucous Membranes Respiratory/Chest: Positive for: Rhonchi, Other (pt intubated) Cardiovascular: Positive for: Normal S1, S2, Tachycardic Abdomen: Positive for: Normal Bowel Sounds. Negative for: Distention Genitourinary/Pelvic Exam: Positive for: Other (lyon catheter in place, draining clear urine) Upper Extremity: Positive for: Normal Inspection Lower Extremity: Positive for: Normal Inspection Neurological: Positive for: Other (pt intubated and sedated) Skin: Positive for: Warm, Dry Psychiatric: Positive for: Other (pt intubated and sedated) - Medications Active Medications: Active Medications Generic Name Dose Route Start Last Admin Trade Name Freq PRN Reason Stop Dose Admin Albuterol/Ipratropium 3 ml 06/28/16 14:00 07/02/16 08:36 Duoneb 3 Mg/0.5 Mg (3 Ml) Ud INH 3 ml RQ6 [facility] Administration Moxifloxacin HCl 250 mls @ 167 mls/hr 06/29/16 10:00 07/02/16 09:17 Avelox Iv 400mg/250ml Ns IVPB 167 mls/hr Q24H [facility] Administration Cefepime HCl 50 mls @ 100 mls/hr 07/01/16 22:00 07/02/16 09:20 Maxipime Iv 1 Gm Premix IVPB 100 mls/hr Q12H [facility] Administration Sodium Chloride 1,000 mls @ 50 mls/hr 07/02/16 10:05 07/02/16 10:44 Sodium Chloride 0.9% IV Not Given .Q20H [facility] Insulin Human Regular 0 unit 06/30/16 13:37 07/02/16 09:16 Novolin R SC 6 unit Q6 [facility] Administration Protocol Methylprednisolone 20 mg 07/02/16 10:15 07/02/16 10:43 Solu-Medrol IVP 20 mg Q12 [facility] Administration Metoprolol Tartrate 25 mg 06/29/16 10:30 07/02/16 09:16 Lopressor PO 25 mg BID [facility] Administration Montelukast Sodium 10 mg 06/28/16 22:00 07/01/16 21:12 Singulair PO 10 mg HS [facility] Administration - Patient Studies Lab Studies: Microbiology Studies 06/29/16 10:19 Gram Stain - Final Trachasp Sputum Culture - Final NORMAL ORAL PING Lab Studies 07/02/16 07/02/16 07/01/16 Range/Units 07:48 06:30 21:31 WBC 9.7 (4.8-10.8) K/uL RBC 3.03 L (3.80-5.20) Mil/uL Hgb 8.3 L (11.0-16.0) g/dL Hct 26.8 L (34.0-47.0) % MCV 88.4 (81.0-99.0) fL MCH 27.4 (27.0-31.0) pg MCHC 31.0 L (33.0-37.0) g/dL RDW 16.4 H (11.5-14.5) % Plt Count 47 L (130-400) K/uL MPV 8.9 (7.2-11.7) fL Neut % (Auto) 90.8 H (50.0-75.0) % Lymph % (Auto) 3.8 L (20.0-40.0) % [place] % (Auto) 5.3 (0.0-10.0) % Eos % (Auto) 0.0 (0.0-4.0) % Baso % (Auto) 0.1 (0.0-2.0) % Neut # 8.8 H (1.8-7.0) K/uL Lymph # 0.4 L (1.0-4.3) K/uL [place] # 0.5 (0.0-0.8) K/uL Eos # 0.0 (0.0-0.7) K/uL Baso # 0.0 (0.0-0.2) K/uL Neutrophils % (Manual) 79 H (50-75) % Band Neutrophils % 11 H* (0-2) % Lymphocytes % (Manual) 7 L (20-40) % Monocytes % (Manual) 3 (0-10) % Platelet Estimate Decreased L (NORMAL) Hypochromasia (manual) Moderate Poikilocytosis (manual Slight Anisocytosis (manual) Slight Microcytosis (manual) Slight Macrocytosis (manual) Slight Tear Drop Cells Slight Ovalocytes Slight Sodium 140 (132-148) mmol/L Potassium 3.5 L (3.6-5.2) mmol/L Chloride 103 (98-107) mmol/L Carbon Dioxide 29 (22-30) mmol/L Anion Gap 12 (10-20) BUN 31 H (7-17) mg/dL Creatinine 1.4 H (0.7-1.2) MG/DL Est GFR ( Amer) 45 Est GFR (Non-Af Amer) 37 POC Glucose (mg/dL) 273 H 375 H (65-110) mg/dL Random Glucose 280 H (65-105) mg/dL Calcium 7.4 L (8.6-10.4) mg/dl Phosphorus 3.1 (2.5-4.5) mg/dL Magnesium 1.7 (1.6-2.3) mg/dL Total Bilirubin 0.7 (0.2-1.3) mg/dL AST 22 (14-36) U/L ALT 35 (9-52) U/L Alkaline Phosphatase 110 (38-126) U/L Total Protein 5.5 L (6.3-8.3) g/dL Albumin 2.6 L (3.5-5.0) g/dL Globulin 2.9 (2.2-3.9) gm/dL Albumin/Globulin Ratio 0.9 L (1.0-2.1) 07/01/16 07/01/16 Range/Units 16:40 12:17 WBC (4.8-10.8) K/uL RBC (3.80-5.20) Mil/uL Hgb (11.0-16.0) g/dL Hct (34.0-47.0) % MCV (81.0-99.0) fL MCH (27.0-31.0) pg MCHC (33.0-37.0) g/dL RDW (11.5-14.5) % Plt Count (130-400) K/uL MPV (7.2-11.7) fL Neut % (Auto) (50.0-75.0) % Lymph % (Auto) (20.0-40.0) % [place] % (Auto) (0.0-10.0) % Eos % (Auto) (0.0-4.0) % Baso % (Auto) (0.0-2.0) % Neut # (1.8-7.0) K/uL Lymph # (1.0-4.3) K/uL [place] # (0.0-0.8) K/uL Eos # (0.0-0.7) K/uL Baso # (0.0-0.2) K/uL Neutrophils % (Manual) (50-75) % Band Neutrophils % (0-2) % Lymphocytes % (Manual) (20-40) % Monocytes % (Manual) (0-10) % Platelet Estimate (NORMAL) Hypochromasia (manual) Poikilocytosis (manual Anisocytosis (manual) Microcytosis (manual) Macrocytosis (manual) Tear Drop Cells Ovalocytes Sodium (132-148) mmol/L Potassium (3.6-5.2) mmol/L Chloride (98-107) mmol/L Carbon Dioxide (22-30) mmol/L Anion Gap (10-20) BUN (7-17) mg/dL Creatinine (0.7-1.2) MG/DL Est GFR ( Amer) Est GFR (Non-Af Amer) POC Glucose (mg/dL) 285 H 345 H (65-110) mg/dL Random Glucose (65-105) mg/dL Calcium (8.6-10.4) mg/dl Phosphorus (2.5-4.5) mg/dL Magnesium (1.6-2.3) mg/dL Total Bilirubin (0.2-1.3) mg/dL AST (14-36) U/L ALT (9-52) U/L Alkaline Phosphatase (38-126) U/L Total Protein (6.3-8.3) g/dL Albumin (3.5-5.0) g/dL Globulin (2.2-3.9) gm/dL Albumin/Globulin Ratio (1.0-2.1) Laboratory Results - last 24 hr 07/01/16 07/01/16 07/01/16 12:17 16:40 21:31 WBC RBC Hgb Hct MCV MCH MCHC RDW Plt Count MPV Neut % (Auto) Lymph % (Auto) [place] % (Auto) Eos % (Auto) Baso % (Auto) Neut # Lymph # [place] # Eos # Baso # Neutrophils % (Manual) Band Neutrophils % Lymphocytes % (Manual) Monocytes % (Manual) Platelet Estimate Hypochromasia (manual) Poikilocytosis (manual Anisocytosis (manual) Microcytosis (manual) Macrocytosis (manual) Tear Drop Cells Ovalocytes Sodium Potassium Chloride Carbon Dioxide Anion Gap BUN Creatinine Est GFR ( Amer) Est GFR (Non-Af Amer) POC Glucose (mg/dL) 345 H 285 H 375 H Random Glucose Calcium Phosphorus Magnesium Total Bilirubin AST ALT Alkaline Phosphatase Total Protein Albumin Globulin Albumin/Globulin Ratio 07/02/16 07/02/16 06:30 07:48 WBC 9.7 RBC 3.03 L Hgb 8.3 L Hct 26.8 L MCV 88.4 MCH 27.4 MCHC 31.0 L RDW 16.4 H Plt Count 47 L MPV 8.9 Neut % (Auto) 90.8 H Lymph % (Auto) 3.8 L [place] % (Auto) 5.3 Eos % (Auto) 0.0 Baso % (Auto) 0.1 Neut # 8.8 H Lymph # 0.4 L [place] # 0.5 Eos # 0.0 Baso # 0.0 Neutrophils % (Manual) 79 H Band Neutrophils % 11 H* Lymphocytes % (Manual) 7 L Monocytes % (Manual) 3 Platelet Estimate Decreased L Hypochromasia (manual) Moderate Poikilocytosis (manual Slight Anisocytosis (manual) Slight Microcytosis (manual) Slight Macrocytosis (manual) Slight Tear Drop Cells Slight Ovalocytes Slight Sodium 140 Potassium 3.5 L Chloride 103 Carbon Dioxide 29 Anion Gap 12 BUN 31 H Creatinine 1.4 H Est GFR ( Amer) 45 Est GFR (Non-Af Amer) 37 POC Glucose (mg/dL) 273 H Random Glucose 280 H Calcium 7.4 L Phosphorus 3.1 Magnesium 1.7 Total Bilirubin 0.7 AST 22 ALT 35 Alkaline Phosphatase 110 Total Protein 5.5 L Albumin 2.6 L Globulin 2.9 Albumin/Globulin Ratio 0.9 L Fingerstick Blood Sugar Results: 375 Critical Care Progress Note - Nutrition Nutrition: Nutrition Category Date Time Status Liquid Diet [DIET] Diets 07/01/16 Dinner Active Assessment/Plan - Assessment and Plan (Free Text) Assessment: 70-year-old female with history of anemia arthritis, asthma, cardiac arrhythmias , COPD hypertension, diabetes, hypercholesteremia, kidney stones, lung cancer, pulmonary embolism, renal insufficiency. Patient came to the emergency room with the sudden onset of shortness of breath. Pt intubated and sedated. On Avelox and Cefepime for HAP and UTI. Plan: Neuro: AAO x3 on 2L NC satting at 100% Endo: Hx Diabetes ISS - HIGH Q6H Accuchecks Q6H B+, high of 280 this AM 2/2 to solumedrol Cardio: Tachycardic (100's), Normotensive - Lopressor 25mg PO BID Elevated troponins - 0.92, 0.384, 0.1150 Hyperkalemia 5.7 on admission -resolved Pulm: Hx of lobectomy, lung CA, chemotherapy Initially Intubated - Pt initially on BiPAP, remained hypoxic, electively intubated -Vent settings: PVRC: FiO2: 30%, PEEP 5, RR 16, Tvolume 500, currently EXTUBATED -ABG improving CXR (06/29/16): ETT tube in good position. NGT in good position. Persistent right suprahilar mass. Smaller nodular density superior-lateral to mass may represent nodules. Nodularity at right lung base may represent shadows with ribs and vessels. Additional nodular density seen over costophrenic angles (see full report) - Pt noted green/black sputum for several days before admission - Avelox 400mg IV Q24H, Primaxin Q6H Hx of COPD - Solumedrol tapered to 20mg IVP Q12H - Singulair 10mg PO HS GI: Full liquid diet -tolerating well, will advance /Renal: BUN/Cr 38/1.9, currrently 31/ 1.4 UA: 2+ protein, 3+ glucose, Nitrate/LE negative, RBC 54, Bacteria occasional Urine cx (06/26/16): Gram negative bolivar - Avelox 400mg IV Q24H (06/29), Maxipime 1 gram Q12H (07/01) NS @ 50cc/hr Monitor I/Os Heme/Onc: Hx of anemia - H/H 11/20/.1 Coagulopathy: - Inr 4.7, PT 57.6, PTT 53 Hx of PE- patient was on coumadin - INR 3.7, PT 44.7, PTT 41 - will hold coumadin until INR < 2 ID: Upon admission: Leukocytosis 28, Tachycardic, left shift, bandemia 17 Hospital Acquired Pneumonia - Avelox 400mg IV Q24H (06/29), Maxipime 1 gram Q12H (07/01) UTI - Urine cx (06/26/16): Gram negative bolivar F/U Dr. Mullen recsamantha- help appreciated Blood cx (06/28/16): no growth for 24 hours x 2 Sputum Cx (06/29/16): No growth MRSA screen (06/28/16): not detected Hx of Benzo/Alcohol Abuse - UDS negative Prophylaxis: DVT: SCDs VTE: Contraindicated due to thrombocytopenia Palliative Care consulted DW Lauren Vides DO, PGY-1 <Jevon Davison M - Last Filed: 07/02/16 18:05> CCU Objective - Vital Signs / Intake & Output Vital Signs (Last 4 hours): Vital Signs Temp Pulse Resp BP Pulse Ox 07/02/16 17:40 157/84 H 07/02/16 17:03 98 H 23 157/84 H 100 07/02/16 17:00 99 H 22 100 07/02/16 16:03 101 H 20 152/80 H 100 07/02/16 16:00 97.2 F L 100 H 20 100 07/02/16 15:50 106 H 16 156/78 H 100 07/02/16 15:42 103 H 13 100 07/02/16 15:00 112 H 22 100 07/02/16 14:14 111 H 20 98 Intake and Output (Last 8hrs): Intake & Output 07/02/16 07/02/16 07/02/16 06:59 14:59 22:59 Intake Total 800 820 100 Output Total 600 351 Balance 200 469 100 Weight 156 lb Intake: Intake, IV Amount 800 700 100 Right Distal Port 800 700 100 Oral 0 120 Output: Urine 600 350 2-way Urethral 600 350 Stool 1 Other: # Bowel Movements 0 0 - Medications Active Medications: Active Medications Generic Name Dose Route Start Last Admin Trade Name Freq PRN Reason Stop Dose Admin Albuterol/Ipratropium 3 ml 06/28/16 14:00 07/02/16 13:46 Duoneb 3 Mg/0.5 Mg (3 Ml) Ud INH 3 ml RQ6 [facility] Administration Glipizide 5 mg 07/03/16 10:00 Glucotrol Xl PO DAILY [facility] Moxifloxacin HCl 250 mls @ 167 mls/hr 06/29/16 10:00 07/02/16 09:17 Avelox Iv 400mg/250ml Ns IVPB 167 mls/hr Q24H [facility] Administration Cefepime HCl 50 mls @ 100 mls/hr 07/01/16 22:00 07/02/16 09:20 Maxipime Iv 1 Gm Premix IVPB 100 mls/hr Q12H [facility] Administration Sodium Chloride 1,000 mls @ 50 mls/hr 07/02/16 10:05 07/02/16 17:42 Sodium Chloride 0.9% IV 50 mls/hr .Q20H [facility] Administration Insulin Human Regular 0 unit 07/02/16 16:30 07/02/16 17:41 Novolin R SC 12 unit ACHS [facility] Administration Protocol Methylprednisolone 20 mg 07/02/16 10:15 07/02/16 10:43 Solu-Medrol IVP 20 mg Q12 [facility] Administration Metoprolol Tartrate 25 mg 06/29/16 10:30 07/02/16 17:40 Lopressor PO 25 mg BID [facility] Administration Montelukast Sodium 10 mg 06/28/16 22:00 07/01/16 21:12 Singulair PO 10 mg HS [facility] Administration - Patient Studies Lab Studies: Lab Studies 07/02/16 07/02/16 07/02/16 Range/Units 16:16 12:03 07:48 WBC (4.8-10.8) K/uL RBC (3.80-5.20) Mil/uL Hgb (11.0-16.0) g/dL Hct (34.0-47.0) % MCV (81.0-99.0) fL MCH (27.0-31.0) pg MCHC (33.0-37.0) g/dL RDW (11.5-14.5) % Plt Count (130-400) K/uL MPV (7.2-11.7) fL Neut % (Auto) (50.0-75.0) % Lymph % (Auto) (20.0-40.0) % [place] % (Auto) (0.0-10.0) % Eos % (Auto) (0.0-4.0) % Baso % (Auto) (0.0-2.0) % Neut # (1.8-7.0) K/uL Lymph # (1.0-4.3) K/uL [place] # (0.0-0.8) K/uL Eos # (0.0-0.7) K/uL Baso # (0.0-0.2) K/uL Neutrophils % (Manual) (50-75) % Band Neutrophils % (0-2) % Lymphocytes % (Manual) (20-40) % Monocytes % (Manual) (0-10) % Platelet Estimate (NORMAL) Hypochromasia (manual) Poikilocytosis (manual Anisocytosis (manual) Microcytosis (manual) Macrocytosis (manual) Tear Drop Cells Ovalocytes Sodium (132-148) mmol/L Potassium (3.6-5.2) mmol/L Chloride (98-107) mmol/L Carbon Dioxide (22-30) mmol/L Anion Gap (10-20) BUN (7-17) mg/dL Creatinine (0.7-1.2) MG/DL Est GFR ( Amer) Est GFR (Non-Af Amer) POC Glucose (mg/dL) 499 H* 450 H* 273 H (65-110) mg/dL Random Glucose (65-105) mg/dL Calcium (8.6-10.4) mg/dl Phosphorus (2.5-4.5) mg/dL Magnesium (1.6-2.3) mg/dL Total Bilirubin (0.2-1.3) mg/dL AST (14-36) U/L ALT (9-52) U/L Alkaline Phosphatase (38-126) U/L Total Protein (6.3-8.3) g/dL Albumin (3.5-5.0) g/dL Globulin (2.2-3.9) gm/dL Albumin/Globulin Ratio (1.0-2.1) 07/02/16 07/01/16 Range/Units 06:30 21:31 WBC 9.7 (4.8-10.8) K/uL RBC 3.03 L (3.80-5.20) Mil/uL Hgb 8.3 L (11.0-16.0) g/dL Hct 26.8 L (34.0-47.0) % MCV 88.4 (81.0-99.0) fL MCH 27.4 (27.0-31.0) pg MCHC 31.0 L (33.0-37.0) g/dL RDW 16.4 H (11.5-14.5) % Plt Count 47 L (130-400) K/uL MPV 8.9 (7.2-11.7) fL Neut % (Auto) 90.8 H (50.0-75.0) % Lymph % (Auto) 3.8 L (20.0-40.0) % [place] % (Auto) 5.3 (0.0-10.0) % Eos % (Auto) 0.0 (0.0-4.0) % Baso % (Auto) 0.1 (0.0-2.0) % Neut # 8.8 H (1.8-7.0) K/uL Lymph # 0.4 L (1.0-4.3) K/uL [place] # 0.5 (0.0-0.8) K/uL Eos # 0.0 (0.0-0.7) K/uL Baso # 0.0 (0.0-0.2) K/uL Neutrophils % (Manual) 79 H (50-75) % Band Neutrophils % 11 H* (0-2) % Lymphocytes % (Manual) 7 L (20-40) % Monocytes % (Manual) 3 (0-10) % Platelet Estimate Decreased L (NORMAL) Hypochromasia (manual) Moderate Poikilocytosis (manual Slight Anisocytosis (manual) Slight Microcytosis (manual) Slight Macrocytosis (manual) Slight Tear Drop Cells Slight Ovalocytes Slight Sodium 140 (132-148) mmol/L Potassium 3.5 L (3.6-5.2) mmol/L Chloride 103 (98-107) mmol/L Carbon Dioxide 29 (22-30) mmol/L Anion Gap 12 (10-20) BUN 31 H (7-17) mg/dL Creatinine 1.4 H (0.7-1.2) MG/DL Est GFR ( Amer) 45 Est GFR (Non-Af Amer) 37 POC Glucose (mg/dL) 375 H (65-110) mg/dL Random Glucose 280 H (65-105) mg/dL Calcium 7.4 L (8.6-10.4) mg/dl Phosphorus 3.1 (2.5-4.5) mg/dL Magnesium 1.7 (1.6-2.3) mg/dL Total Bilirubin 0.7 (0.2-1.3) mg/dL AST 22 (14-36) U/L ALT 35 (9-52) U/L Alkaline Phosphatase 110 (38-126) U/L Total Protein 5.5 L (6.3-8.3) g/dL Albumin 2.6 L (3.5-5.0) g/dL Globulin 2.9 (2.2-3.9) gm/dL Albumin/Globulin Ratio 0.9 L (1.0-2.1) Laboratory Results - last 24 hr 07/01/16 07/02/16 07/02/16 21:31 06:30 07:48 WBC 9.7 RBC 3.03 L Hgb 8.3 L Hct 26.8 L MCV 88.4 MCH 27.4 MCHC 31.0 L RDW 16.4 H Plt Count 47 L MPV 8.9 Neut % (Auto) 90.8 H Lymph % (Auto) 3.8 L [place] % (Auto) 5.3 Eos % (Auto) 0.0 Baso % (Auto) 0.1 Neut # 8.8 H Lymph # 0.4 L [place] # 0.5 Eos # 0.0 Baso # 0.0 Neutrophils % (Manual) 79 H Band Neutrophils % 11 H* Lymphocytes % (Manual) 7 L Monocytes % (Manual) 3 Platelet Estimate Decreased L Hypochromasia (manual) Moderate Poikilocytosis (manual Slight Anisocytosis (manual) Slight Microcytosis (manual) Slight Macrocytosis (manual) Slight Tear Drop Cells Slight Ovalocytes Slight Sodium 140 Potassium 3.5 L Chloride 103 Carbon Dioxide 29 Anion Gap 12 BUN 31 H Creatinine 1.4 H Est GFR ( Amer) 45 Est GFR (Non-Af Amer) 37 POC Glucose (mg/dL) 375 H 273 H Random Glucose 280 H Calcium 7.4 L Phosphorus 3.1 Magnesium 1.7 Total Bilirubin 0.7 AST 22 ALT 35 Alkaline Phosphatase 110 Total Protein 5.5 L Albumin 2.6 L Globulin 2.9 Albumin/Globulin Ratio 0.9 L 07/02/16 07/02/16 12:03 16:16 WBC RBC Hgb Hct MCV MCH MCHC RDW Plt Count MPV Neut % (Auto) Lymph % (Auto) [place] % (Auto) Eos % (Auto) Baso % (Auto) Neut # Lymph # [place] # Eos # Baso # Neutrophils % (Manual) Band Neutrophils % Lymphocytes % (Manual) Monocytes % (Manual) Platelet Estimate Hypochromasia (manual) Poikilocytosis (manual Anisocytosis (manual) Microcytosis (manual) Macrocytosis (manual) Tear Drop Cells Ovalocytes Sodium Potassium Chloride Carbon Dioxide Anion Gap BUN Creatinine Est GFR ( Amer) Est GFR (Non-Af Amer) POC Glucose (mg/dL) 450 H* 499 H* Random Glucose Calcium Phosphorus Magnesium Total Bilirubin AST ALT Alkaline Phosphatase Total Protein Albumin Globulin Albumin/Globulin Ratio Critical Care Progress Note - Nutrition Nutrition: Nutrition Category Date Time Status Liquid Diet [DIET] Diets 07/01/16 Dinner Active Attending/Attestation - Attestation I have personally seen and examined this patient.: Yes I have fully participated in the care of the patient.: Yes I have reviewed all pertinent clinical information: Yes Notes (Text): 07/02/16 Today: , July 02, 2016 The Patient was seen and examined at the bedside, Medical records reviewed, all clinical/lab/hemodynamic/radiographic data were reviewed and management issues were discussed and formulated, Events reviewed Pain issues, skin care, head of the bed elevation, glycemic control were addressed. Agree with above treatment plans as transcribed in Dr. Aguilar note
[2016-07-02] MEDS ORDERED: Albuterol-Ipratrop 3 mg / 0.5 (3 ml) UD INH STA (14:32)
[2016-07-02] MEDS ORDERED: (Novolin R) Insulin Human Regular 100 units/ml vial SC ONE (16:29)
[2016-07-02] MEDS ORDERED: GlipiZIDE 5 mg SR Tab PO SCH (16:30)
--- NOTE | 2016-07-02 17:55 | CP.PCM.PN ---
Subjective - Date & Time of Evaluation Date of Evaluation: 07/02/16 Time of Evaluation: 01:20 - Subjective Subjective: Dictated Objective - Vital Signs/Intake and Output Vital Signs (last 24 hours): Temp Pulse Resp BP Pulse Ox 97.2 F L 98 H 23 157/84 H 100 07/02/16 16:00 07/02/16 17:03 07/02/16 17:03 07/02/16 17:40 07/02/16 17:03 Intake and Output: 07/02/16 07/02/16 06:59 18:59 Intake Total 1380 920 Output Total 790 351 Balance 590 569 - Medications Medications: Current Medications Albuterol/Ipratropium (Duoneb 3 Mg/0.5 Mg (3 Ml) Ud) 3 ml INH RQ6 [facility] Last Admin: 07/02/16 13:46 Dose: 3 ml Glipizide (Glucotrol Xl) 5 mg PO DAILY [facility] Moxifloxacin HCl (Avelox Iv 400mg/250ml Ns) 250 mls @ 167 mls/hr IVPB Q24H [facility] Last Admin: 07/02/16 09:17 Dose: 167 mls/hr Cefepime HCl (Maxipime Iv 1 Gm Premix) 50 mls @ 100 mls/hr IVPB Q12H [facility] Last Admin: 07/02/16 09:20 Dose: 100 mls/hr Sodium Chloride (Sodium Chloride 0.9%) 1,000 mls @ 50 mls/hr IV .Q20H [facility] Last Admin: 07/02/16 17:42 Dose: 50 mls/hr Insulin Human Regular (Novolin R) 0 unit SC ACHS [facility] PRN Reason: Protocol Last Admin: 07/02/16 17:41 Dose: 12 unit Methylprednisolone (Solu-Medrol) 20 mg IVP Q12 [facility] Last Admin: 07/02/16 10:43 Dose: 20 mg Metoprolol Tartrate (Lopressor) 25 mg PO BID [facility] Last Admin: 07/02/16 17:40 Dose: 25 mg Montelukast Sodium (Singulair) 10 mg PO HS [facility] Last Admin: 07/01/16 21:12 Dose: 10 mg - Labs Labs: 07/02/16 06:30 07/02/16 06:30 PT 44.7 SECONDS (9.7-12.2) H* D 07/01/16 09:38 INR 3.7 D 07/01/16 09:38 APTT 41 SECONDS (21-34) H D 07/01/16 09:38
--- NOTE | 2016-07-03 00:22 | PN ---
DATE: 07/02/2016 The patient was in ICU. She is still being monitored there. She was getting respiratory treatment. She was awake, alert and she denied any pain, and she was feeling a little better. PHYSICAL EXAMINATION: VITAL SIGNS: T-max was 97.2, pulse 100, blood pressure 152/80, saturation was 100%, respirations were 20. HEAD: Atraumatic, normocephalic. NECK: Supple. LUNGS: Clear, occasional rhonchi bilateral, right more than left. HEART: S1, S2 is regular. ABDOMEN: Soft, nontender, no guarding, no rigidity present. EXTREMITIES: Had no edema, clubbing or cyanosis. LABORATORIES: Noted, show her platelets are 47 today, hemoglobin 8.3, hematocrit 26.8, white count is 9.7. She remains anemic with thrombocytopenia and her neutrophils are 79, bands are still 11, lymphs are 7, monocytes are 3. Sodium is 140, potassium is 3.5, chloride is 103, CO2 is 29, BUN is 31, creatinine is 1.4, anion gap is 12. Her sugar when I saw her was 273. Toxicology negative digoxin level when she came in. UA showed gram-negative bacilli, but there are less than 10,000 and she recently received treatment. She does suffer from kidney stones and she has history of pulmonary embolism, but because of low platelets, it looks like she is not on any blood thinner and at this time, she is status post respiratory failure. Her chest x-ray today shows support lines and tubes and shows persistent large right infrahilar mass, scattered nodular densities surrounding the mass, nodular density in the left mid lung, mild venous congestion. So at this time, patient does have history of lung cancer and had acute respiratory failure and is improving. She is extubated, but remains still tachycardic and with thrombocytopenia, anemia. Renal insufficiency is a little better. She is on Maxipime and Avelox at this time and we will continue present treatment. Primaxin was changed because of low platelets, but still the platelets remain low. Bryan Mullen MD cc: [id number] TT: 07/02/2016 18:56:22 Confirmation # [id number] Dictation # [id number] en 07/02/2016 23:21:48 MTDD
[2016-07-03] MEDS: Albuterol-Ipratrop 3 mg / 0.5 (3 ml) UD INH SCH ×4 (01:32→19:35)
[2016-07-03 06:15] LABS: BASO % 0.1 % (0.0-2.0); HEMATOCRIT 27.4 % (34.0-47.0); LYMPH # 0.7 K/uL (1.0-4.3); LYMPH % 4.4 % (20.0-40.0); MEAN CORPUSCULAR HEMOGLOBIN 27.3 pg (27.0-31.0); MEAN PLATELET VOLUME 9.3 fL (7.2-11.7); MONO # 0.6 K/uL (0.0-0.8); MONO % 4.1 % (0.0-10.0); NRBC % 0.4 % (0.0-2.0); PLATELET COUNT 48 K/uL (130-400); RED CELL DISTRIBUTION WIDTH 16.4 % (11.5-14.5); WHITE BLOOD COUNT 15.3 K/uL (4.8-10.8)
[2016-07-03] MEDS: Sodium Chloride 0.9% 1,000 ML IV SCH ×2 (06:19→15:44)
[2016-07-03 06:23] LABS: POTASSIUM 4.2 mmol/L (3.6-5.2)
[2016-07-03 06:25] LABS: ALB/GLOB RATIO 0.9 (1.0-2.1); BILIRUBIN,TOTAL 0.6 mg/dL (0.2-1.3); TOTAL PROTEIN 5.6 g/dL (6.3-8.3)
[2016-07-03 06:26] LABS: CALCIUM 7.6 mg/dl (8.6-10.4); MAGNESIUM 1.5 mg/dL (1.6-2.3); PHOSPHOROUS 2.4 mg/dL (2.5-4.5)
--- NOTE | 2016-07-03 06:53 | PN ---
DATE: 07/02/2016 SUBJECTIVE: Today, the patient is more alert and awake, no shortness of breath at rest, but there is some nonproductive cough and no chest pain. PHYSICAL EXAMINATION: VITALS: The patient has a blood pressure of 150/98, pulses are 93, respirations 20. NECK: Supple. LUNGS: There are some rales at the bases. HEART: Regular rate and rhythm, but murmur. ABDOMEN: Soft and positive for hydronephrosis bilaterally. EXTREMITIES: There is +1 pitting edema. LABORATORY DATA: Shows that white blood count is 9.7, hemoglobin 8.3, hematocrit 26.8 and platelet i s 947 and BUN is 11. PLAN: The patient given Solu-Medrol 20 mg IV q. 12 hours. Continue and also . Chest x-r ay is ordered for tomorrow and lab. The patient is seen in the ICU. Isak Mark MD cc: [id number] TT: 07/02/2016 23:19:18 Confirmation # [id number] Dictation # [id number] mn 07/03/2016 05:52:25
--- NOTE | 2016-07-03 07:52 | CARD ---
APPROVED REPORT EXAM: Two-dimensional and M-mode echocardiogram with Doppler and color Doppler. Other Information Quality : GoodRhythm : NSR INDICATION Acute MO CAD COPD RISK FACTORS Hypertension Hyperlipidemia Diabetes M-Mode DIMENSIONS RVDd2.40 (2.1-3.2cm)Left Atrium (MM)2.95 (2.5-4.0cm) IVSd0.81 (0.7-1.1cm)Aortic Root2.66 (2.2-3.7cm) LVDd3.17 (4.0-5.6cm)Aortic Cusp Exc.1.70 (1.5-2.0cm) PWd1.00 (0.7-1.1cm)FS (%) 22 % LVDs2.47 (2.0-3.8cm)LVEF (%)46 (>50%) Mitral Valve E/A ratio0.0 TDI E/Lateral E'0.0E/Medial E'0.0 Tricuspid Valve TR Peak [id number] Peak Gr.[id number] LEFT VENTRICLE The left ventricle is normal size. There is normal left ventricular wall thickness. Left ventricle systolic function is moderately impaired. The Ejection Fraction is 40-45%. There is mild dyskinesis in the mid-inferior wall. The left ventricular diastolic function is normal. No left ventricle thrombus noted on this study. There is no ventricular septal defect visualized. There is no left ventricular aneurysm. There is no mass noted in the left ventricle. RIGHT VENTRICLE The right ventricle is normal size. There is normal right ventricular wall thickness. The right ventricular systolic function is normal. ATRIA The left atrium size is normal. The right atrium size is normal. The interatrial septum is intact with no evidence for an atrial septal defect. AORTIC VALVE The aortic valve is normal in structure and function. No aortic regurgitation is present. There is no aortic valvular stenosis. There is no aortic valvular vegetation. MITRAL VALVE The mitral valve is normal in structure and function. There is no evidence of mitral valve prolapse. There is no mitral valve stenosis. There is no mitral valve regurgitation noted. TRICUSPID VALVE The tricuspid valve is normal in structure and function. There is no tricuspid valve regurgitation noted. There is no tricuspid valve prolapse or vegetation. There is no tricuspid valve stenosis. PULMONIC VALVE The pulmonary valve is normal in structure and function. There is no pulmonic valvular regurgitation. There is no pulmonic valvular stenosis. GREAT VESSELS The aortic root is normal in size. The ascending aorta is normal in size. The pulmonary artery is normal. The IVC is normal in size and collapses >50% with inspiration. PERICARDIAL EFFUSION There is a small loculated posterior pericardial effusion. There is no pleural effusion. <Conclusion> Left ventricle systolic function is moderately impaired. There is mild dyskinesis in the mid-inferior wall. The Ejection Fraction is 40-45%.
[2016-07-03 09:01] LABS: NEUTROPHIL 83 % (50-75); NUCLEATED RED BLOOD CELL 3 % (0-0); TOTAL CELLS COUNTED 100
[2016-07-03] MEDS: (Novolin R) Insulin Human Regular 100 units/ml vial SC SCH ×4 (09:12→23:06)
[2016-07-03] MEDS: Magnesium Oxide 400 mg Tab UD PO SCH ×2 (10:13→17:24)
[2016-07-03] MEDS: GlipiZIDE 5 mg SR Tab PO SCH (10:23)
[2016-07-03] MEDS: Potassium & Sodium Phosphate PO SCH ×2 (10:26→17:25)
[2016-07-03] MEDS: MethylPREDNISolone 40 mg Vial IVP SCH ×2 (10:28→21:35)
[2016-07-03] MEDS: Cefepime IV 1 gm in Dextrose 50 ML IVPB SCH ×2 (10:32→21:00)
[2016-07-03] MEDS: Moxifloxacin IV 400mg/250ml NS 250 ML IVPB SCH (10:33)
--- NOTE | 2016-07-03 11:17 | CP.CCUPN ---
<La Aguilar - Last Filed: 07/03/16 14:17> CCU Subjective - Physician Review Subjective (Free Text): Patient was seen and examined at bedside. Patient currently tolerating full liquid diet. On 2L NC in no acute distress. Patient is currently on solumedrol 20mg IV Q12H. Patient transferred to TELEMETRY. CCU Objective - Vital Signs / Intake & Output Vital Signs (Last 4 hours): Vital Signs BP 07/03/16 10:13 142/78 Intake and Output (Last 8hrs): Intake & Output 07/02/16 07/03/16 07/03/16 22:59 06:59 14:59 Intake Total 590 880 Output Total 550 Balance 590 330 Weight 178 lb 4 oz Intake: Intake, IV Amount 350 400 Right Distal Port 350 400 Oral 240 480 Output: Urine 550 Urine, Voided 550 - Physical Exam Head: Positive for: Atraumatic, Normocephalic Pupils: Positive for: PERRL Extroacular Muscles: Positive for: EOMI Mouth: Positive for: Moist Mucous Membranes Respiratory/Chest: Positive for: Rhonchi, Other (pt intubated) Cardiovascular: Positive for: Normal S1, S2, Tachycardic Abdomen: Positive for: Normal Bowel Sounds. Negative for: Distention Genitourinary/Pelvic Exam: Positive for: Other (lyon catheter in place, draining clear urine) Upper Extremity: Positive for: Normal Inspection Lower Extremity: Positive for: Normal Inspection Neurological: Positive for: Other (pt intubated and sedated) Skin: Positive for: Warm, Dry Psychiatric: Positive for: Other (pt intubated and sedated) - Medications Active Medications: Active Medications Generic Name Dose Route Start Last Admin Trade Name Freq PRN Reason Stop Dose Admin Albuterol/Ipratropium 3 ml 06/28/16 14:00 07/03/16 07:30 Duoneb 3 Mg/0.5 Mg (3 Ml) Ud INH 3 ml RQ6 LIVIER Administration Glipizide 5 mg 07/03/16 10:00 07/03/16 10:23 Glucotrol Xl PO 5 mg DAILY LIVIER Administration Moxifloxacin HCl 250 mls @ 167 mls/hr 06/29/16 10:00 07/03/16 10:33 Avelox Iv 400mg/250ml Ns IVPB 167 mls/hr Q24H LIVIER Administration Cefepime HCl 50 mls @ 100 mls/hr 07/01/16 22:00 07/03/16 10:32 Maxipime Iv 1 Gm Premix IVPB 100 mls/hr Q12H LIVIER Administration Sodium Chloride 1,000 mls @ 50 mls/hr 07/02/16 10:05 07/03/16 06:19 Sodium Chloride 0.9% IV Not Given .Q20H LIVIER Insulin Human Regular 0 unit 07/02/16 16:30 07/03/16 09:12 Novolin R SC Not Given ACHS [facility] Protocol Magnesium Oxide 400 mg 07/03/16 10:00 07/03/16 10:13 Mag-Ox PO 07/04/16 10:01 400 mg BID LIVIER Administration Methylprednisolone 20 mg 07/02/16 10:15 07/03/16 10:28 Solu-Medrol IVP 20 mg Q12 LIVIER Administration Metoprolol Tartrate 25 mg 06/29/16 10:30 07/03/16 10:13 Lopressor PO 25 mg BID LIVIER Administration Montelukast Sodium 10 mg 06/28/16 22:00 07/02/16 22:03 Singulair PO 10 mg HS LIVIER Administration Potassium Phos/Sodium Phos 1 pkt 07/03/16 10:00 07/03/16 10:26 Neutra-Phos PO 1 pkt BIDCC LIVIER Administration - Patient Studies Lab Studies: Lab Studies 07/03/16 07/03/16 07/02/16 Range/Units 09:04 06:05 21:17 WBC 15.3 H D (4.8-10.8) K/uL RBC 3.12 L (3.80-5.20) Mil/uL Hgb 8.5 L (11.0-16.0) g/dL Hct 27.4 L (34.0-47.0) % MCV 88.0 (81.0-99.0) fL MCH 27.3 (27.0-31.0) pg MCHC 31.0 L (33.0-37.0) g/dL RDW 16.4 H (11.5-14.5) % Plt Count 48 L (130-400) K/uL MPV 9.3 (7.2-11.7) fL Neut % (Auto) 91.4 H (50.0-75.0) % Lymph % (Auto) 4.4 L (20.0-40.0) % Day % (Auto) 4.1 (0.0-10.0) % Eos % (Auto) 0.0 (0.0-4.0) % Baso % (Auto) 0.1 (0.0-2.0) % Neut # 14.0 H (1.8-7.0) K/uL Lymph # 0.7 L (1.0-4.3) K/uL Day # 0.6 (0.0-0.8) K/uL Eos # 0.0 (0.0-0.7) K/uL Baso # 0.0 (0.0-0.2) K/uL Neutrophils % (Manual) 83 H (50-75) % Band Neutrophils % 6 H (0-2) % Lymphocytes % (Manual) 7 L (20-40) % Monocytes % (Manual) 4 (0-10) % Nucleated RBC % 3 H (0-0) % Toxic Granulation Present Platelet Estimate Decreased L (NORMAL) Hypochromasia (manual) Slight Poikilocytosis (manual Slight Anisocytosis (manual) Slight Target Cells Slight Tear Drop Cells Slight Sodium 138 (132-148) mmol/L Potassium 4.2 (3.6-5.2) mmol/L Chloride 102 (98-107) mmol/L Carbon Dioxide 30 (22-30) mmol/L Anion Gap 10 (10-20) BUN 28 H (7-17) mg/dL Creatinine 1.4 H (0.7-1.2) MG/DL Est GFR ( Amer) 45 Est GFR (Non-Af Amer) 37 POC Glucose (mg/dL) 128 H 325 H (65-110) mg/dL Random Glucose 134 H (65-105) mg/dL Calcium 7.6 L (8.6-10.4) mg/dl Phosphorus 2.4 L (2.5-4.5) mg/dL Magnesium 1.5 L (1.6-2.3) mg/dL Total Bilirubin 0.6 (0.2-1.3) mg/dL AST 30 (14-36) U/L ALT 39 (9-52) U/L Alkaline Phosphatase 109 (38-126) U/L Total Protein 5.6 L (6.3-8.3) g/dL Albumin 2.6 L (3.5-5.0) g/dL Globulin 2.9 (2.2-3.9) gm/dL Albumin/Globulin Ratio 0.9 L (1.0-2.1) 07/02/16 07/02/16 Range/Units 16:16 12:03 WBC (4.8-10.8) K/uL RBC (3.80-5.20) Mil/uL Hgb (11.0-16.0) g/dL Hct (34.0-47.0) % MCV (81.0-99.0) fL MCH (27.0-31.0) pg MCHC (33.0-37.0) g/dL RDW (11.5-14.5) % Plt Count (130-400) K/uL MPV (7.2-11.7) fL Neut % (Auto) (50.0-75.0) % Lymph % (Auto) (20.0-40.0) % Day % (Auto) (0.0-10.0) % Eos % (Auto) (0.0-4.0) % Baso % (Auto) (0.0-2.0) % Neut # (1.8-7.0) K/uL Lymph # (1.0-4.3) K/uL Day # (0.0-0.8) K/uL Eos # (0.0-0.7) K/uL Baso # (0.0-0.2) K/uL Neutrophils % (Manual) (50-75) % Band Neutrophils % (0-2) % Lymphocytes % (Manual) (20-40) % Monocytes % (Manual) (0-10) % Nucleated RBC % (0-0) % Toxic Granulation Platelet Estimate (NORMAL) Hypochromasia (manual) Poikilocytosis (manual Anisocytosis (manual) Target Cells Tear Drop Cells Sodium (132-148) mmol/L Potassium (3.6-5.2) mmol/L Chloride (98-107) mmol/L Carbon Dioxide (22-30) mmol/L Anion Gap (10-20) BUN (7-17) mg/dL Creatinine (0.7-1.2) MG/DL Est GFR ( Amer) Est GFR (Non-Af Amer) POC Glucose (mg/dL) 499 H* 450 H* (65-110) mg/dL Random Glucose (65-105) mg/dL Calcium (8.6-10.4) mg/dl Phosphorus (2.5-4.5) mg/dL Magnesium (1.6-2.3) mg/dL Total Bilirubin (0.2-1.3) mg/dL AST (14-36) U/L ALT (9-52) U/L Alkaline Phosphatase (38-126) U/L Total Protein (6.3-8.3) g/dL Albumin (3.5-5.0) g/dL Globulin (2.2-3.9) gm/dL Albumin/Globulin Ratio (1.0-2.1) Laboratory Results - last 24 hr 07/02/16 07/02/16 07/02/16 12:03 16:16 21:17 WBC RBC Hgb Hct MCV MCH MCHC RDW Plt Count MPV Neut % (Auto) Lymph % (Auto) Day % (Auto) Eos % (Auto) Baso % (Auto) Neut # Lymph # Day # Eos # Baso # Neutrophils % (Manual) Band Neutrophils % Lymphocytes % (Manual) Monocytes % (Manual) Nucleated RBC % Toxic Granulation Platelet Estimate Hypochromasia (manual) Poikilocytosis (manual Anisocytosis (manual) Target Cells Tear Drop Cells Sodium Potassium Chloride Carbon Dioxide Anion Gap BUN Creatinine Est GFR ( Amer) Est GFR (Non-Af Amer) POC Glucose (mg/dL) 450 H* 499 H* 325 H Random Glucose Calcium Phosphorus Magnesium Total Bilirubin AST ALT Alkaline Phosphatase Total Protein Albumin Globulin Albumin/Globulin Ratio 07/03/16 07/03/16 06:05 09:04 WBC 15.3 H D RBC 3.12 L Hgb 8.5 L Hct 27.4 L MCV 88.0 MCH 27.3 MCHC 31.0 L RDW 16.4 H Plt Count 48 L MPV 9.3 Neut % (Auto) 91.4 H Lymph % (Auto) 4.4 L Day % (Auto) 4.1 Eos % (Auto) 0.0 Baso % (Auto) 0.1 Neut # 14.0 H Lymph # 0.7 L Day # 0.6 Eos # 0.0 Baso # 0.0 Neutrophils % (Manual) 83 H Band Neutrophils % 6 H Lymphocytes % (Manual) 7 L Monocytes % (Manual) 4 Nucleated RBC % 3 H Toxic Granulation Present Platelet Estimate Decreased L Hypochromasia (manual) Slight Poikilocytosis (manual Slight Anisocytosis (manual) Slight Target Cells Slight Tear Drop Cells Slight Sodium 138 Potassium 4.2 Chloride 102 Carbon Dioxide 30 Anion Gap 10 BUN 28 H Creatinine 1.4 H Est GFR ( Amer) 45 Est GFR (Non-Af Amer) 37 POC Glucose (mg/dL) 128 H Random Glucose 134 H Calcium 7.6 L Phosphorus 2.4 L Magnesium 1.5 L Total Bilirubin 0.6 AST 30 ALT 39 Alkaline Phosphatase 109 Total Protein 5.6 L Albumin 2.6 L Globulin 2.9 Albumin/Globulin Ratio 0.9 L Fingerstick Blood Sugar Results: 128 Critical Care Progress Note - Nutrition Nutrition: Nutrition Category Date Time Status Liquid Diet [DIET] Diets 07/01/16 Dinner Active Assessment/Plan - Assessment and Plan (Free Text) Assessment: 70-year-old female with history of anemia arthritis, asthma, cardiac arrhythmias , COPD hypertension, diabetes, hypercholesteremia, kidney stones, lung cancer, pulmonary embolism, renal insufficiency. Patient came to the emergency room with the sudden onset of shortness of breath. Pt intubated and sedated. On Avelox and Cefepime for HAP and UTI. Plan: Neuro: AAO x3 on 2L NC satting at 100% Endo: Hx Diabetes ISS - HIGH Q6H Restarted Glipizide XL 5mg PO daily Accuchecks Q6H B Cardio: Tachycardic (100's), Normotensive - Lopressor 25mg PO BID Elevated troponins - 0.92, 0.384, 0.1150 Hyperkalemia 5.7 on admission -resolved Pulm: Hx of lobectomy, lung CA, chemotherapy Initially Intubated - Pt initially on BiPAP, remained hypoxic, electively intubated -Vent settings: PVRC: FiO2: 30%, PEEP 5, RR 16, Tvolume 500, currently EXTUBATED -ABG improving CXR (06/29/16): ETT tube in good position. NGT in good position. Persistent right suprahilar mass. Smaller nodular density superior-lateral to mass may represent nodules. Nodularity at right lung base may represent shadows with ribs and vessels. Additional nodular density seen over costophrenic angles (see full report) - Pt noted green/black sputum for several days before admission - Avelox 400mg IV Q24H, Primaxin Q6H Hx of COPD - Solumedrol tapered to 20mg IVP Q12H - Singulair 10mg PO HS GI: Moderate carb diet /Renal: BUN/Cr 38/1.9, currrently 28/ 1.4 UA: 2+ protein, 3+ glucose, Nitrate/LE negative, RBC 54, Bacteria occasional Urine cx (06/26/16): Gram negative bolivar - Avelox 400mg IV Q24H (06/29), Maxipime 1 gram Q12H (07/01) NS @ 50cc/hr Monitor I/Os Heme/Onc: Hx of anemia - H/H 11/20/32.1 Coagulopathy: - Inr 4.7, PT 57.6, PTT 53 Hx of PE- patient was on coumadin - INR 2.6, PT 31.2, PTT 35 - will hold coumadin until INR < 2 ID: Upon admission: Leukocytosis 28, Tachycardic, left shift, bandemia 17, currently 15.3 Hospital Acquired Pneumonia - Avelox 400mg IV Q24H (06/29), Maxipime 1 gram Q12H (07/01) UTI - Urine cx (06/26/16): Gram negative bolivar F/U Dr. Paz hooks- help appreciated Blood cx (06/28/16): no growth for 24 hours x 2 Sputum Cx (06/29/16): No growth MRSA screen (06/28/16): not detected Hx of Benzo/Alcohol Abuse - UDS negative Prophylaxis: DVT: SCDs VTE: Contraindicated due to thrombocytopenia Palliative Care consulted DW Lauren Vides DO, PGY-1 <Jevon Davison - Last Filed: 07/04/16 23:42> CCU Objective - Vital Signs / Intake & Output Vital Signs (Last 4 hours): Vital Signs Pulse Resp BP Pulse Ox 07/04/16 21:03 101 H 22 162/92 H 100 07/04/16 21:00 102 H 16 100 07/04/16 20:03 99 H 13 165/102 H 100 07/04/16 20:00 97 H 14 100 Intake and Output (Last 8hrs): Intake & Output 07/04/16 07/04/16 07/05/16 14:59 22:59 06:59 Intake Total 720 260 Output Total 680 200 Balance 40 60 Intake: Intake, IV Amount 300 Right Distal Port 300 Oral 420 260 Output: Urine 680 200 Urine, Voided 680 200 Other: # Bowel Movements 0 - Medications Active Medications: Active Medications Generic Name Dose Route Start Last Admin Trade Name Freq PRN Reason Stop Dose Admin Albuterol/Ipratropium 3 ml 06/28/16 14:00 07/04/16 20:13 Duoneb 3 Mg/0.5 Mg (3 Ml) Ud INH 3 ml RQ6 LIVIER Administration Glipizide 5 mg 07/03/16 10:00 07/04/16 09:25 Glucotrol Xl PO 5 mg DAILY LIVIER Administration Cefepime HCl 50 mls @ 100 mls/hr 07/01/16 22:00 07/04/16 21:00 Maxipime Iv 1 Gm Premix IVPB 100 mls/hr Q12H LIVIER Administration Insulin Human Regular 0 unit 07/02/16 16:30 07/04/16 21:15 Novolin R SC Not Given ACHS LIVIER Protocol Methylprednisolone 20 mg 07/02/16 10:15 07/04/16 21:03 Solu-Medrol IVP 20 mg Q12 LIVIER Administration Metoprolol Tartrate 25 mg 06/29/16 10:30 07/04/16 17:40 Lopressor PO 25 mg BID LIVIER Administration Montelukast Sodium 10 mg 06/28/16 22:00 07/04/16 21:03 Singulair PO 10 mg HS LIVIER Administration Potassium Phos/Sodium Phos 1 pkt 07/03/16 10:00 07/04/16 17:40 Neutra-Phos PO 1 pkt BIDCC LIVIER Administration - Patient Studies Lab Studies: Lab Studies 07/04/16 07/04/16 07/04/16 Range/Units 21:48 21:11 17:10 WBC (4.8-10.8) K/uL RBC (3.80-5.20) Mil/uL Hgb (11.0-16.0) g/dL Hct (34.0-47.0) % MCV (81.0-99.0) fL MCH (27.0-31.0) pg MCHC (33.0-37.0) g/dL RDW (11.5-14.5) % Plt Count (130-400) K/uL MPV (7.2-11.7) fL Neut % (Auto) (50.0-75.0) % Lymph % (Auto) (20.0-40.0) % Day % (Auto) (0.0-10.0) % Eos % (Auto) (0.0-4.0) % Baso % (Auto) (0.0-2.0) % Neut # (1.8-7.0) K/uL Lymph # (1.0-4.3) K/uL Day # (0.0-0.8) K/uL Eos # (0.0-0.7) K/uL Baso # (0.0-0.2) K/uL Neutrophils % (Manual) (50-75) % Band Neutrophils % (0-2) % Lymphocytes % (Manual) (20-40) % Reactive Lymphs % (0-0) % Monocytes % (Manual) (0-10) % Toxic Granulation Platelet Estimate (NORMAL) Polychromasia Hypochromasia (manual) Poikilocytosis (manual Basophilic Stippling Anisocytosis (manual) Ovalocytes Schistocytes Sodium (132-148) mmol/L Potassium (3.6-5.2) mmol/L Chloride (98-107) mmol/L Carbon Dioxide (22-30) mmol/L Anion Gap (10-20) BUN (7-17) mg/dL Creatinine (0.7-1.2) MG/DL Est GFR ( Amer) Est GFR (Non-Af Amer) POC Glucose (mg/dL) 106 68 158 H (65-110) mg/dL Random Glucose (65-105) mg/dL Calcium (8.6-10.4) mg/dl Total Bilirubin (0.2-1.3) mg/dL AST (14-36) U/L ALT (9-52) U/L Alkaline Phosphatase (38-126) U/L Total Protein (6.3-8.3) g/dL Albumin (3.5-5.0) g/dL Globulin (2.2-3.9) gm/dL Albumin/Globulin Ratio (1.0-2.1) Urine Color (YELLOW) Urine Clarity (Clear) Urine pH (5.0-8.0) Ur Specific [place] (1.003-1.030) Urine Protein (NEGATIVE) mg/dL Urine Glucose (UA) (Normal) mg/dL Urine Ketones (NEGATIVE) mg/dL Urine Blood (NEGATIVE) Urine Nitrate (NEGATIVE) Urine Bilirubin (NEGATIVE) Urine Urobilinogen (0.2-1.0) mg/dL Ur Leukocyte Esterase (Negative) Héctor/uL Urine WBC (Auto) (0-5) /hpf Urine RBC (Auto) (0-3) /hpf Ur Squamous Epith Cells (0-5) /hpf Urine Bacteria (<OCC) Urine Yeast (Budding) (NEGATIVE) /hpf 07/04/16 07/04/16 07/04/16 Range/Units 12:57 11:25 07:20 WBC (4.8-10.8) K/uL RBC (3.80-5.20) Mil/uL Hgb (11.0-16.0) g/dL Hct (34.0-47.0) % MCV (81.0-99.0) fL MCH (27.0-31.0) pg MCHC (33.0-37.0) g/dL RDW (11.5-14.5) % Plt Count (130-400) K/uL MPV (7.2-11.7) fL Neut % (Auto) (50.0-75.0) % Lymph % (Auto) (20.0-40.0) % Day % (Auto) (0.0-10.0) % Eos % (Auto) (0.0-4.0) % Baso % (Auto) (0.0-2.0) % Neut # (1.8-7.0) K/uL Lymph # (1.0-4.3) K/uL Day # (0.0-0.8) K/uL Eos # (0.0-0.7) K/uL Baso # (0.0-0.2) K/uL Neutrophils % (Manual) (50-75) % Band Neutrophils % (0-2) % Lymphocytes % (Manual) (20-40) % Reactive Lymphs % (0-0) % Monocytes % (Manual) (0-10) % Toxic Granulation Platelet Estimate (NORMAL) Polychromasia Hypochromasia (manual) Poikilocytosis (manual Basophilic Stippling Anisocytosis (manual) Ovalocytes Schistocytes Sodium (132-148) mmol/L Potassium (3.6-5.2) mmol/L Chloride (98-107) mmol/L Carbon Dioxide (22-30) mmol/L Anion Gap (10-20) BUN (7-17) mg/dL Creatinine (0.7-1.2) MG/DL Est GFR ( Amer) Est GFR (Non-Af Amer) POC Glucose (mg/dL) 341 H 332 H (65-110) mg/dL Random Glucose (65-105) mg/dL Calcium (8.6-10.4) mg/dl Total Bilirubin (0.2-1.3) mg/dL AST (14-36) U/L ALT (9-52) U/L Alkaline Phosphatase (38-126) U/L Total Protein (6.3-8.3) g/dL Albumin (3.5-5.0) g/dL Globulin (2.2-3.9) gm/dL Albumin/Globulin Ratio (1.0-2.1) Urine Color Straw (YELLOW) Urine Clarity Clear (Clear) Urine pH 7.0 (5.0-8.0) Ur Specific [place] 1.007 (1.003-1.030) Urine Protein 1+ H (NEGATIVE) mg/dL Urine Glucose (UA) 3+ H (Normal) mg/dL Urine Ketones Negative (NEGATIVE) mg/dL Urine Blood 1+ H (NEGATIVE) Urine Nitrate Negative (NEGATIVE) Urine Bilirubin Negative (NEGATIVE) Urine Urobilinogen Normal (0.2-1.0) mg/dL Ur Leukocyte Esterase Neg (Negative) Héctor/uL Urine WBC (Auto) 4 (0-5) /hpf Urine RBC (Auto) 12 H (0-3) /hpf Ur Squamous Epith Cells < 1 (0-5) /hpf Urine Bacteria Rare (<OCC) Urine Yeast (Budding) Mod H (NEGATIVE) /hpf 07/04/16 Range/Units 05:58 WBC 20.4 H (4.8-10.8) K/uL RBC 3.23 L (3.80-5.20) Mil/uL Hgb 8.8 L (11.0-16.0) g/dL Hct 28.9 L (34.0-47.0) % MCV 89.6 (81.0-99.0) fL MCH 27.4 (27.0-31.0) pg MCHC 30.6 L (33.0-37.0) g/dL RDW 16.6 H (11.5-14.5) % Plt Count 46 L (130-400) K/uL MPV 9.1 (7.2-11.7) fL Neut % (Auto) 93.8 H (50.0-75.0) % Lymph % (Auto) 2.9 L (20.0-40.0) % Day % (Auto) 3.0 (0.0-10.0) % Eos % (Auto) 0.0 (0.0-4.0) % Baso % (Auto) 0.3 (0.0-2.0) % Neut # 19.1 H (1.8-7.0) K/uL Lymph # 0.6 L (1.0-4.3) K/uL Day # 0.6 (0.0-0.8) K/uL Eos # 0.0 (0.0-0.7) K/uL Baso # 0.1 (0.0-0.2) K/uL Neutrophils % (Manual) 90 H (50-75) % Band Neutrophils % 6 H (0-2) % Lymphocytes % (Manual) 1 L (20-40) % Reactive Lymphs % 2 H (0-0) % Monocytes % (Manual) 1 (0-10) % Toxic Granulation Present Platelet Estimate Markedly decreased L (NORMAL) Polychromasia Slight Hypochromasia (manual) Slight Poikilocytosis (manual Slight Basophilic Stippling Slight Anisocytosis (manual) Slight Ovalocytes Slight Schistocytes Slight Sodium 139 (132-148) mmol/L Potassium 3.9 (3.6-5.2) mmol/L Chloride 101 (98-107) mmol/L Carbon Dioxide 29 (22-30) mmol/L Anion Gap 13 (10-20) BUN 29 H (7-17) mg/dL Creatinine 1.4 H (0.7-1.2) MG/DL Est GFR ( Amer) 45 Est GFR (Non-Af Amer) 37 POC Glucose (mg/dL) (65-110) mg/dL Random Glucose 314 H (65-105) mg/dL Calcium 7.8 L (8.6-10.4) mg/dl Total Bilirubin 0.3 (0.2-1.3) mg/dL AST 40 H D (14-36) U/L ALT 34 (9-52) U/L Alkaline Phosphatase 137 H D (38-126) U/L Total Protein 5.7 L (6.3-8.3) g/dL Albumin 2.7 L (3.5-5.0) g/dL Globulin 2.9 (2.2-3.9) gm/dL Albumin/Globulin Ratio 0.9 L (1.0-2.1) Urine Color (YELLOW) Urine Clarity (Clear) Urine pH (5.0-8.0) Ur Specific [place] (1.003-1.030) Urine Protein (NEGATIVE) mg/dL Urine Glucose (UA) (Normal) mg/dL Urine Ketones (NEGATIVE) mg/dL Urine Blood (NEGATIVE) Urine Nitrate (NEGATIVE) Urine Bilirubin (NEGATIVE) Urine Urobilinogen (0.2-1.0) mg/dL Ur Leukocyte Esterase (Negative) Héctor/uL Urine WBC (Auto) (0-5) /hpf Urine RBC (Auto) (0-3) /hpf Ur Squamous Epith Cells (0-5) /hpf Urine Bacteria (<OCC) Urine Yeast (Budding) (NEGATIVE) /hpf Laboratory Results - last 24 hr 07/04/16 07/04/16 07/04/16 05:58 07:20 11:25 WBC 20.4 H RBC 3.23 L Hgb 8.8 L Hct 28.9 L MCV 89.6 MCH 27.4 MCHC 30.6 L RDW 16.6 H Plt Count 46 L MPV 9.1 Neut % (Auto) 93.8 H Lymph % (Auto) 2.9 L Day % (Auto) 3.0 Eos % (Auto) 0.0 Baso % (Auto) 0.3 Neut # 19.1 H Lymph # 0.6 L Day # 0.6 Eos # 0.0 Baso # 0.1 Neutrophils % (Manual) 90 H Band Neutrophils % 6 H Lymphocytes % (Manual) 1 L Reactive Lymphs % 2 H Monocytes % (Manual) 1 Toxic Granulation Present Platelet Estimate Markedly decreased L Polychromasia Slight Hypochromasia (manual) Slight Poikilocytosis (manual Slight Basophilic Stippling Slight Anisocytosis (manual) Slight Ovalocytes Slight Schistocytes Slight Sodium 139 Potassium 3.9 Chloride 101 Carbon Dioxide 29 Anion Gap 13 BUN 29 H Creatinine 1.4 H Est GFR ( Amer) 45 Est GFR (Non-Af Amer) 37 POC Glucose (mg/dL) 332 H 341 H Random Glucose 314 H Calcium 7.8 L Total Bilirubin 0.3 AST 40 H D ALT 34 Alkaline Phosphatase 137 H D Total Protein 5.7 L Albumin 2.7 L Globulin 2.9 Albumin/Globulin Ratio 0.9 L Urine Color Urine Clarity Urine pH Ur Specific [place] Urine Protein Urine Glucose (UA) Urine Ketones Urine Blood Urine Nitrate Urine Bilirubin Urine Urobilinogen Ur Leukocyte Esterase Urine WBC (Auto) Urine RBC (Auto) Ur Squamous Epith Cells Urine Bacteria Urine Yeast (Budding) 07/04/16 07/04/16 07/04/16 12:57 17:10 21:11 WBC RBC Hgb Hct MCV MCH MCHC RDW Plt Count MPV Neut % (Auto) Lymph % (Auto) Day % (Auto) Eos % (Auto) Baso % (Auto) Neut # Lymph # Day # Eos # Baso # Neutrophils % (Manual) Band Neutrophils % Lymphocytes % (Manual) Reactive Lymphs % Monocytes % (Manual) Toxic Granulation Platelet Estimate Polychromasia Hypochromasia (manual) Poikilocytosis (manual Basophilic Stippling Anisocytosis (manual) Ovalocytes Schistocytes Sodium Potassium Chloride Carbon Dioxide Anion Gap BUN Creatinine Est GFR ( Amer) Est GFR (Non-Af Amer) POC Glucose (mg/dL) 158 H 68 Random Glucose Calcium Total Bilirubin AST ALT Alkaline Phosphatase Total Protein Albumin Globulin Albumin/Globulin Ratio Urine Color Straw Urine Clarity Clear Urine pH 7.0 Ur Specific [place] 1.007 Urine Protein 1+ H Urine Glucose (UA) 3+ H Urine Ketones Negative Urine Blood 1+ H Urine Nitrate Negative Urine Bilirubin Negative Urine Urobilinogen Normal Ur Leukocyte Esterase Neg Urine WBC (Auto) 4 Urine RBC (Auto) 12 H Ur Squamous Epith Cells < 1 Urine Bacteria Rare Urine Yeast (Budding) Mod H 07/04/16 21:48 WBC RBC Hgb Hct MCV MCH MCHC RDW Plt Count MPV Neut % (Auto) Lymph % (Auto) Day % (Auto) Eos % (Auto) Baso % (Auto) Neut # Lymph # Day # Eos # Baso # Neutrophils % (Manual) Band Neutrophils % Lymphocytes % (Manual) Reactive Lymphs % Monocytes % (Manual) Toxic Granulation Platelet Estimate Polychromasia Hypochromasia (manual) Poikilocytosis (manual Basophilic Stippling Anisocytosis (manual) Ovalocytes Schistocytes Sodium Potassium Chloride Carbon Dioxide Anion Gap BUN Creatinine Est GFR ( Amer) Est GFR (Non-Af Amer) POC Glucose (mg/dL) 106 Random Glucose Calcium Total Bilirubin AST ALT Alkaline Phosphatase Total Protein Albumin Globulin Albumin/Globulin Ratio Urine Color Urine Clarity Urine pH Ur Specific [place] Urine Protein Urine Glucose (UA) Urine Ketones Urine Blood Urine Nitrate Urine Bilirubin Urine Urobilinogen Ur Leukocyte Esterase Urine WBC (Auto) Urine RBC (Auto) Ur Squamous Epith Cells Urine Bacteria Urine Yeast (Budding) Critical Care Progress Note - Nutrition Nutrition: Nutrition Category Date Time Status Consistent Carbohydrate [DIET] Diets 07/03/16 Dinner Active Attending/Attestation - Attestation I have personally seen and examined this patient.: Yes I have fully participated in the care of the patient.: Yes I have reviewed all pertinent clinical information: Yes Notes (Text): Today: Wednesday, July 03, 2016 The Patient was seen and examined at the bedside, Medical records reviewed, all clinical/lab/hemodynamic/radiographic data were reviewed and management issues were discussed and formulated, Events reviewed Pain issues, skin care, head of the bed elevation, glycemic control were addressed. Agree with above treatment plans as transcribed in Dr. Aguilar note
[2016-07-03 13:42] LABS: INR 2.6
--- NOTE | 2016-07-03 14:20 | CP.PCM.PN ---
Subjective - Date & Time of Evaluation Date of Evaluation: 07/03/16 Time of Evaluation: 01:30 - Subjective Subjective: dictated Objective - Vital Signs/Intake and Output Vital Signs (last 24 hours): Temp Pulse Resp BP Pulse Ox 97.5 F L 95 H 23 143/75 100 07/03/16 12:00 07/03/16 11:03 07/03/16 11:03 07/03/16 11:03 07/03/16 11:03 Intake and Output: 07/03/16 07/03/16 06:59 18:59 Intake Total 1320 960 Output Total 550 220 Balance 770 740 - Medications Medications: Current Medications Albuterol/Ipratropium (Duoneb 3 Mg/0.5 Mg (3 Ml) Ud) 3 ml INH RQ6 [facility] Last Admin: 07/03/16 13:19 Dose: 3 ml Glipizide (Glucotrol Xl) 5 mg PO DAILY [facility] Last Admin: 07/03/16 10:23 Dose: 5 mg Moxifloxacin HCl (Avelox Iv 400mg/250ml Ns) 250 mls @ 167 mls/hr IVPB Q24H [facility] Last Admin: 07/03/16 10:33 Dose: 167 mls/hr Cefepime HCl (Maxipime Iv 1 Gm Premix) 50 mls @ 100 mls/hr IVPB Q12H [facility] Last Admin: 07/03/16 10:32 Dose: 100 mls/hr Sodium Chloride (Sodium Chloride 0.9%) 1,000 mls @ 50 mls/hr IV .Q20H [facility] Last Admin: 07/03/16 06:19 Dose: Not Given Insulin Human Regular (Novolin R) 0 unit SC ACHS [facility] PRN Reason: Protocol Last Admin: 07/03/16 09:12 Dose: Not Given Magnesium Oxide (Mag-Ox) 400 mg PO BID [facility] Stop: 07/04/16 10:01 Last Admin: 07/03/16 10:13 Dose: 400 mg Methylprednisolone (Solu-Medrol) 20 mg IVP Q12 [facility] Last Admin: 07/03/16 10:28 Dose: 20 mg Metoprolol Tartrate (Lopressor) 25 mg PO BID [facility] Last Admin: 07/03/16 10:13 Dose: 25 mg Montelukast Sodium (Singulair) 10 mg PO HS [facility] Last Admin: 07/02/16 22:03 Dose: 10 mg Potassium Phos/Sodium Phos (Neutra-Phos) 1 pkt PO BIDCC [facility] Last Admin: 07/03/16 10:26 Dose: 1 pkt - Labs Labs: 07/03/16 06:05 07/03/16 06:05 PT 31.2 SECONDS (9.7-12.2) H* D 07/03/16 13:24 INR 2.6 D 07/03/16 13:24 APTT 35 SECONDS (21-34) H D 07/03/16 13:24
--- NOTE | 2016-07-03 16:55 | PN ---
DATE: 07/03/2016 The patient was on Ventimask, she was feeling better. She says she has cough, but no phlegm. She monk s dry cough now and she looks more comfortable than yesterday, still in ICU and afebrile. PHYSICAL EXAMINATION VITAL SIGNS: T-max is 84, blood pressure 163/83, respirations are 19. HEENT: Head is atraumatic. NECK: Supple. LUNGS: Have decreased breath sounds bilaterally. HEART: S1, S2 regular. ABDOMEN: Soft, nontender, no guarding, no rigidity present. EXTREMITIES: No edema, clubbing or cyanosis. LABORATORY DATA: White count is 15.3 today, hemoglobin 8.5, hematocrit 27.4, platelet count still lo w 48, neutrophils are 91.4, bands are 6 today, neutrophils are 83, white count has increased, her INR is 2.6. BUN is 28, creatinine is 1.4 is better, sugar is 211. IMPRESSION AND PLAN: At this time, the white count has increased, most likely secondary to steroids. She is on Maxipime and Avelox, still has bandemia. Will closely monitor the white count tomorrow a nd will follow. She has a lung mass and had pneumonia and respiratory failure and is on IV antibioti cs. Also, has thrombocytopenia, has history of pulmonary embolism and will follow. Bryan Mullen MD cc: [id number] TT: 07/03/2016 16:54:41 Confirmation # [id number] Dictation # [id number] nicola
--- NOTE | 2016-07-03 19:29 | PN ---
DATE: 07/03/2016 Today the patient was seen earlier, was sitting on the chair at the bedside. The patient is still in ICU, admitted with some slight shortness of breath with exertion with noncongestive cough. PHYSICAL EXAMINATION: VITAL SIGNS: The patient had a blood pressure at 18 hours. The patient was 171/91, pulse 100-110 an d respirations are 20-25. NECK: Supple. LUNGS: Have some rales at the bases. HEART: Tachycardic. Positive murmur. ABDOMEN: Soft. Positive hydronephrosis. EXTREMITIES: There is no edema. LABORATORY DATA: The patient had blood tests. WBC is 16.3, hemoglobin 8.5, hematocrit 27.4, and chris telets 48. Chemistry: Sodium 138, potassium 4.2, chloride 102, bicarbonate 30, BUN 28, creatinine 1 .4. Glucose is 134. PLAN: The patient remains in ICU. Continue antibiotic therapy and some physical therapy. Isak Mark MD cc: [id number] TT: 07/03/2016 19:29:28 Confirmation # [id number] Dictation # [id number] rach
[2016-07-04] MEDS: Sodium Chloride 0.9% 1,000 ML IV SCH (01:00)
[2016-07-04] MEDS: Albuterol-Ipratrop 3 mg / 0.5 (3 ml) UD INH SCH ×4 (01:13→20:13)
[2016-07-04 06:05] LABS: BASO # 0.1 K/uL (0.0-0.2); BASO % 0.3 % (0.0-2.0); HEMATOCRIT 28.9 % (34.0-47.0); LYMPH # 0.6 K/uL (1.0-4.3); LYMPH % 2.9 % (20.0-40.0); MEAN CELL VOLUME 89.6 fL (81.0-99.0); MEAN CORPUSCULAR HEMOGLOBIN 27.4 pg (27.0-31.0); MEAN CORPUSCULAR HGB CONC 30.6 g/dL (33.0-37.0); MEAN PLATELET VOLUME 9.1 fL (7.2-11.7); MONO # 0.6 K/uL (0.0-0.8); NRBC % 0.4 % (0.0-2.0); PLATELET COUNT 46 K/uL (130-400); RED CELL DISTRIBUTION WIDTH 16.6 % (11.5-14.5); WHITE BLOOD COUNT 20.4 K/uL (4.8-10.8)
[2016-07-04 06:16] LABS: POTASSIUM 3.9 mmol/L (3.6-5.2)
[2016-07-04 06:19] LABS: ALB/GLOB RATIO 0.9 (1.0-2.1); BILIRUBIN,TOTAL 0.3 mg/dL (0.2-1.3); CALCIUM 7.8 mg/dl (8.6-10.4); TOTAL PROTEIN 5.7 g/dL (6.3-8.3)
[2016-07-04] MEDS: (Novolin R) Insulin Human Regular 100 units/ml vial SC SCH ×4 (08:00→21:15)
[2016-07-04] MEDS: Potassium & Sodium Phosphate PO SCH ×2 (08:00→17:40)
[2016-07-04 08:34] LABS: NEUTROPHIL 90 % (50-75); REACTIVE LYMPHOCYTES 2 % (0-0); TOTAL CELLS COUNTED 100
[2016-07-04] MEDS: GlipiZIDE 5 mg SR Tab PO SCH (09:25)
[2016-07-04] MEDS: MethylPREDNISolone 40 mg Vial IVP SCH ×2 (09:25→21:03)
[2016-07-04] MEDS: Magnesium Oxide 400 mg Tab UD PO SCH (09:25)
[2016-07-04] MEDS: Cefepime IV 1 gm in Dextrose 50 ML IVPB SCH ×2 (09:27→21:00)
[2016-07-04] MEDS: Moxifloxacin IV 400mg/250ml NS 250 ML IVPB SCH (10:00)
[2016-07-04 13:14] LABS: RBC URINE 12 /hpf (0-3); URINE BACTERIA RARE (<OCC); URINE BILIRUBIN NEGATIVE (NEGATIVE); URINE BLOOD 1+ (NEGATIVE); URINE COLOR Straw (YELLOW); URINE GLUCOSE (UA) 3+ mg/dL (Normal); URINE KETONE NEGATIVE (NEGATIVE); URINE LEUKOCYTE ESTERASE NEG Leu/uL (Negative); URINE PROTEIN 1+ mg/dL (NEGATIVE); URINE UROBILINOGEN NORMAL mg/dL (0.2-1.0); WBC URINE 4 /hpf (0-5)
--- NOTE | 2016-07-04 16:08 | PN ---
DATE: 07/04/2016 SUBJECTIVE: Today the patient is alert, awake and oriented, little short of breath with minimal effo rt. Denied any chest pain, no palpitations. No constipation. PHYSICAL EXAMINATION: VITAL SIGNS: The patient has a blood pressure 169/98, pulse is 101, now 101 to 110, respirations 22- 23. NECK: Supple. LUNGS: There are some rales. HEART: Tachycardic. Positive murmur. ABDOMEN: Soft and nontender. No palpable mass, but there is bilateral hydronephrosis. EXTREMITIES: There is no edema. LABORATORY DATA: WBC is 20.4, hemoglobin 8.8, hematocrit 28.9 and platelets is 46. Chemistry: Sodi um 139, potassium 3.9, chloride 101, bicarb 29, BUN ____, creatinine 1.4, ____ 214, and ____ 137, ALT 24, AST 40. Coags: PT 31.2, INR 2.6 and a PTT 35. PLAN: We are going to continue to monitor conditions, continue antibiotic therapy. Continue respira tory treatment. The patient is still critically ill and the patient goes to telemetry when bed is av ailable. Isak Mark MD cc: [id number] TT: 07/04/2016 16:07:52 Confirmation # [id number] Dictation # [id number] jn
[2016-07-05] MEDS: Albuterol-Ipratrop 3 mg / 0.5 (3 ml) UD INH SCH ×4 (01:07→20:11)
[2016-07-05] MEDS: (Novolin R) Insulin Human Regular 100 units/ml vial SC SCH ×4 (08:16→21:30)
[2016-07-05] MEDS: Potassium & Sodium Phosphate PO SCH ×2 (08:17→16:59)
[2016-07-05] MEDS: Cefepime IV 1 gm in Dextrose 50 ML IVPB SCH ×2 (10:07→21:15)
[2016-07-05] MEDS: MethylPREDNISolone 40 mg Vial IVP SCH ×2 (10:09→21:16)
[2016-07-05] MEDS: GlipiZIDE 5 mg SR Tab PO SCH (10:10)
[2016-07-05] MEDS: Pantoprazole 40 mg EC Tab PO SCH (16:57)
--- NOTE | 2016-07-05 18:17 | PN ---
DATE: 07/05/2016 SUBJECTIVE: Today, the patient is alert and awake, but short of breath ____ and denies chest pain, b ut had been having some dry cough. PHYSICAL EXAMINATION: NECK: Supple. LUNGS: There are some rales noted which is old. HEART: Tachycardic. ABDOMEN: Soft. Positive bowel sounds. Positive bilateral hydronephrosis. EXTREMITIES: There is no edema. LABORATORY DATA: Shows WBC is 20.4, hemoglobin 8.8, hematocrit 28.9 and platelets are 46. The ____ is 6 ____ from 11, which is markedly decreased. PLAN: We are going to add Protonix 40 mg p.o. and we are going to ____ medication ____ . Isak Mark MD cc: [id number] TT: 07/05/2016 18:16:42 Confirmation # [id number] Dictation # [id number] rach
[2016-07-06] MEDS: Albuterol-Ipratrop 3 mg / 0.5 (3 ml) UD INH SCH ×4 (01:13→19:07)
[2016-07-06 06:42] LABS: BASO % 0.2 % (0.0-2.0); HEMATOCRIT 27.7 % (34.0-47.0); LYMPH # 0.6 K/uL (1.0-4.3); LYMPH % 2.5 % (20.0-40.0); MEAN CELL VOLUME 88.9 fL (81.0-99.0); MEAN CORPUSCULAR HEMOGLOBIN 27.6 pg (27.0-31.0); MEAN PLATELET VOLUME 9.1 fL (7.2-11.7); MONO # 0.8 K/uL (0.0-0.8); MONO % 3.8 % (0.0-10.0); NRBC % 0.2 % (0.0-2.0); PLATELET COUNT 62 K/uL (130-400); RED CELL DISTRIBUTION WIDTH 16.4 % (11.5-14.5); WHITE BLOOD COUNT 22.4 K/uL (4.8-10.8)
[2016-07-06 06:55] LABS: POTASSIUM 4.5 mmol/L (3.6-5.2)
[2016-07-06 06:57] LABS: BILIRUBIN,TOTAL 0.5 mg/dL (0.2-1.3); TOTAL PROTEIN 5.9 g/dL (6.3-8.3)
[2016-07-06 06:58] LABS: CALCIUM 8.2 mg/dl (8.6-10.4)
[2016-07-06] MEDS: (Novolin R) Insulin Human Regular 100 units/ml vial SC SCH ×4 (07:50→21:11)
[2016-07-06 08:15] LABS: NEUTROPHIL 81 % (50-75); TOTAL CELLS COUNTED 100
[2016-07-06] MEDS: Potassium & Sodium Phosphate PO SCH ×2 (08:50→18:50)
[2016-07-06] MEDS: MethylPREDNISolone 40 mg Vial IVP SCH ×2 (09:58→21:21)
[2016-07-06] MEDS: Cefepime IV 1 gm in Dextrose 50 ML IVPB SCH ×2 (09:58→21:21)
[2016-07-06] MEDS: GlipiZIDE 5 mg SR Tab PO SCH (09:59)
[2016-07-06] MEDS: Pantoprazole 40 mg EC Tab PO SCH (09:59)
--- NOTE | 2016-07-06 13:24 | CP.PCM.PN ---
Subjective - Date & Time of Evaluation Date of Evaluation: 07/06/16 Time of Evaluation: 11:00 - Subjective Subjective: Patient offers no new complaints, appears in good spirits. Objective - Vital Signs/Intake and Output Vital Signs (last 24 hours): Temp Pulse Resp BP Pulse Ox 97.8 F 70 20 145/75 100 07/06/16 04:00 07/06/16 04:00 07/06/16 04:00 07/06/16 09:59 07/06/16 04:00 Intake and Output: 07/06/16 07/06/16 06:59 18:59 Intake Total 50 Output Total 1750 Balance -1700 - Medications Medications: Current Medications Albuterol/Ipratropium (Duoneb 3 Mg/0.5 Mg (3 Ml) Ud) 3 ml INH RQ6 [facility] Last Admin: 07/06/16 07:32 Dose: 3 ml Glipizide (Glucotrol Xl) 5 mg PO DAILY [facility] Last Admin: 07/06/16 09:59 Dose: 5 mg Cefepime HCl (Maxipime Iv 1 Gm Premix) 50 mls @ 100 mls/hr IVPB Q12H [facility] Last Admin: 07/06/16 09:58 Dose: 100 mls/hr Insulin Human Regular (Novolin R) 0 unit SC ACHS [facility] PRN Reason: Protocol Last Admin: 07/05/16 21:30 Dose: 1 unit Methylprednisolone (Solu-Medrol) 20 mg IVP Q12 [facility] Last Admin: 07/06/16 09:58 Dose: 20 mg Metoprolol Tartrate (Lopressor) 25 mg PO BID [facility] Last Admin: 07/06/16 09:59 Dose: 25 mg Montelukast Sodium (Singulair) 10 mg PO HS [facility] Last Admin: 07/05/16 21:16 Dose: 10 mg Pantoprazole Sodium (Protonix Ec Tab) 40 mg PO DAILY [facility] Last Admin: 07/06/16 09:59 Dose: 40 mg Potassium Phos/Sodium Phos (Neutra-Phos) 1 pkt PO BIDCC [facility] Last Admin: 07/05/16 16:59 Dose: 1 pkt - Labs Labs: 07/06/16 06:33 07/06/16 06:33 PT 31.2 SECONDS (9.7-12.2) H* D 07/03/16 13:24 INR 2.6 D 07/03/16 13:24 APTT 35 SECONDS (21-34) H D 07/03/16 13:24 - Constitutional Appears: No Acute Distress - Head Exam Head Exam: ATRAUMATIC, NORMAL INSPECTION, NORMOCEPHALIC - Eye Exam Eye Exam: Normal appearance Pupil Exam: NORMAL ACCOMODATION, PERRL - ENT Exam ENT Exam: Mucous Membranes Moist, Normal Exam - Neck Exam Neck Exam: Normal Inspection - Respiratory Exam Respiratory Exam: Decreased Breath Sounds, NORMAL BREATHING PATTERN - Cardiovascular Exam Cardiovascular Exam: REGULAR RHYTHM, +S1, +S2 - GI/Abdominal Exam GI & Abdominal Exam: Soft, Normal Bowel Sounds - Rectal Exam Rectal Exam: Deferred - Extremities Exam Extremities Exam: Normal Inspection - Back Exam Back Exam: NORMAL INSPECTION - Neurological Exam Neurological Exam: Alert, Oriented x3 Neuro motor strength exam: Left Upper Extremity: 2/1, Right Upper Extremity: 2/1 , Left Lower Extremity: 2/1, Right Lower Extremity: 2/1 - Psychiatric Exam Psychiatric exam: Normal Affect, Normal Mood - Skin Skin Exam: Normal Color Assessment and Plan - Assessment and Plan (Free Text) Assessment: Patient examined sitting up in chair in no acute distress. Breath sounds diminished B/L. patient gets SOB while talking. O2Sat 98 % NC. No cough noted. WBC 22.4, afebrile. Last urine C&S from 06/28/2016 significant for gram _ rods. Maxipime IV on board. Patient denies abdominal pain, nausea and states fair appetite. There is muscle weakness and unsteady gait due to prolonged bed rest until extubation. We discussed patient's Hx of lung CA and her goals for the future. Patient is looking forward returning home and to fallow up with her oncologist. Patient lives with sister at home, who is involved with care. Impression * Patient is S/P extubation, recovering well * SOB while talking * Muscle weakness * UTI Suggestion * Assist with ADLs to preserve energy * PT eval * Use all measures to support life * Discharge planing palliative care will sign of at this point. Please re consult if needed.
--- NOTE | 2016-07-06 20:46 | PN ---
DATE: 07/06/2016 Today the patient is alert and awake, out of bed to chair this morning but shortness of breath with m inor effort. No chest pain, no palpitations. PHYSICAL EXAMINATION: VITAL SIGNS: The patient has a blood pressure of 147/87, pulse is in the range of 90-100. Respirati ons 20. NECK: Supple. No JVD. LUNGS: Some wheezing noted, but some rales also at the bases. HEART: Tachycardic. ABDOMEN: Soft and nontender. No palpable mass. EXTREMITIES: There is edema. LABORATORY DATA: The patient had blood tests done. WBC 22.4, hemoglobin is 8.7, hematocrit 27.7, pl atelets is 62. Chemistry: Sodium 139, potassium 4.5, chloride 97, bicarbonate ____, BUN 37, creatin ine 1.4 and glucose 202, calcium 8.2, AST 30, ALT 33, alkaline phosphate is 141. ____ 5.9, albumin 2 .9. Coagulation: PT 11, INR 1. PLAN: We are going to continue the current medications ____ . Isak Mark MD cc: [id number] TT: 07/06/2016 20:45:09 Confirmation # [id number] Dictation # [id number] nicola
[2016-07-07] MEDS: Albuterol-Ipratrop 3 mg / 0.5 (3 ml) UD INH SCH ×2 (01:02→19:56)
[2016-07-07 07:11] LABS: BASO # 0.1 K/uL (0.0-0.2); BASO % 0.2 % (0.0-2.0); HEMATOCRIT 28.6 % (34.0-47.0); LYMPH # 0.6 K/uL (1.0-4.3); LYMPH % 2.5 % (20.0-40.0); MEAN CELL VOLUME 88.7 fL (81.0-99.0); MEAN CORPUSCULAR HEMOGLOBIN 27.3 pg (27.0-31.0); MEAN CORPUSCULAR HGB CONC 30.8 g/dL (33.0-37.0); MEAN PLATELET VOLUME 9.3 fL (7.2-11.7); MONO # 1.1 K/uL (0.0-0.8); MONO % 4.9 % (0.0-10.0); NRBC % 0.2 % (0.0-2.0); PLATELET COUNT 81 K/uL (130-400); RED CELL DISTRIBUTION WIDTH 16.4 % (11.5-14.5); WHITE BLOOD COUNT 22.5 K/uL (4.8-10.8)
[2016-07-07] MEDS: (Novolin R) Insulin Human Regular 100 units/ml vial SC SCH ×4 (07:51→21:22)
[2016-07-07 08:51] LABS: CALCIUM 8.2 mg/dl (8.6-10.4); POTASSIUM 4.4 mmol/L (3.6-5.2)
[2016-07-07 09:34] LABS: INR 1.1
[2016-07-07 09:49] LABS: NEUTROPHIL 88 % (50-75); NUCLEATED RED BLOOD CELL 1 % (0-0); TOTAL CELLS COUNTED 100
[2016-07-07] MEDS: Potassium & Sodium Phosphate PO SCH ×2 (11:12→17:00)
[2016-07-07] MEDS: MethylPREDNISolone 40 mg Vial IVP SCH ×2 (11:13→21:22)
[2016-07-07] MEDS: Pantoprazole 40 mg EC Tab PO SCH (11:14)
[2016-07-07] MEDS: Cefepime IV 1 gm in Dextrose 50 ML IVPB SCH ×2 (11:14→21:23)
[2016-07-07] MEDS: GlipiZIDE 5 mg SR Tab PO SCH (11:14)
--- NOTE | 2016-07-07 19:22 | PN ---
DATE: 07/07/2016 SUBJECTIVE: Today, the patient is alert and awake. Shortness of breath on exertion. Denies any sha st pain. ____ no abdominal pain. The patient was transferred from ICU today to [address] [place] [address]. PHYSICAL EXAMINATION: VITAL SIGNS: Has a blood pressure of 162/95, pulse 110, respirations 20 and temperature 98.1. HEENT: Head is normocephalic, atraumatic. NECK: Supple. LUNGS: Have some inspiratory and expiratory wheezing. HEART: Tachycardic. ABDOMEN: Soft. Positive bowel sounds. Positive bilateral hydronephrosis. EXTREMITIES: There is no edema. LABORATORY DATA: The patient had some blood tests done. WBC 22.5, hemoglobin 8.8, hematocrit 28.6 a nd platelets is 81. Chemistries, the sodium is 127, potassium 4.4, chloride 97, bicarbonate 33, BUN 28, creatinine 1.4. Glucose ____ is 379 and calcium 8.2. PT is 11.8. INR 1.1. ASSESSMENT AND PLAN: We are going to increase the Solu-Medrol to 40 mg IV q. 12 hours and also we ar e going to have a consult with Dr. Casillas, pulmonary. The patient will be on Coumadin 5 mg plus Loven ox 40 twice a day. We are going to continue to monitor ____ respirations. Isak Mark MD cc: [id number] TT: 07/07/2016 19:22:14 Confirmation # [id number] Dictation # [id number] rach
[2016-07-08] MEDS: Albuterol-Ipratrop 3 mg / 0.5 (3 ml) UD INH SCH ×3 (01:05→13:40)
[2016-07-08 07:29] LABS: BASO # 0.1 K/uL (0.0-0.2); BASO % 0.2 % (0.0-2.0); HEMATOCRIT 30.3 % (34.0-47.0); LYMPH # 0.5 K/uL (1.0-4.3); MEAN CELL VOLUME 88.5 fL (81.0-99.0); MEAN CORPUSCULAR HEMOGLOBIN 26.9 pg (27.0-31.0); MEAN CORPUSCULAR HGB CONC 30.4 g/dL (33.0-37.0); MEAN PLATELET VOLUME 8.8 fL (7.2-11.7); MONO # 1.3 K/uL (0.0-0.8); MONO % 5.3 % (0.0-10.0); NRBC % 0.3 % (0.0-2.0); PLATELET COUNT 104 K/uL (130-400); RED CELL DISTRIBUTION WIDTH 16.7 % (11.5-14.5); WHITE BLOOD COUNT 25.4 K/uL (4.8-10.8)
[2016-07-08 07:35] LABS: INR 1.1
[2016-07-08 07:54] LABS: POTASSIUM 4.6 mmol/L (3.6-5.2)
[2016-07-08 07:57] LABS: CALCIUM 8.5 mg/dl (8.6-10.4)
[2016-07-08] MEDS: (Novolin R) Insulin Human Regular 100 units/ml vial SC SCH ×4 (08:30→22:37)
[2016-07-08 09:19] LABS: NEUTROPHIL 92 % (50-75); TOTAL CELLS COUNTED 100
[2016-07-08] MEDS: Pantoprazole 40 mg EC Tab PO SCH (11:00)
[2016-07-08] MEDS: Cefepime IV 1 gm in Dextrose 50 ML IVPB SCH ×2 (11:00→22:35)
[2016-07-08] MEDS: GlipiZIDE 5 mg SR Tab PO SCH (11:00)
[2016-07-08] MEDS: Potassium & Sodium Phosphate PO SCH ×2 (11:00→17:31)
[2016-07-08] MEDS: MethylPREDNISolone 40 mg Vial IVP SCH ×2 (11:00→22:34)
[2016-07-08] MEDS ORDERED: Digoxin 125 mcg (0.125 mg) Tab PO ONE (11:15)
[2016-07-08] MEDS ORDERED: Promethazine/Cod 6.25mg-10mg/5ml Syr UD PO ONE (17:15)
[2016-07-08] MEDS: Fluconazole IV 100mg/50 ml NS 50 ML IVPB SCH (17:28)
--- NOTE | 2016-07-08 18:17 | PN ---
DATE: 07/08/2016 SUBJECTIVE: Today, the patient is alert, awake, oriented. He still has some shortness of breath ___ __ and denies any chest pain, no palpitations, no dizziness. The patient also has some congestive co ugh. Blood pressure is 160/97, pulse was at first 110 but now is 128, respirations 20, temperature 9 7.5. NECK: Supple. LUNGS: There are some expiratory wheezes. HEART: Tachycardic. ABDOMEN: Soft, nontender. Positive bowel sounds. Bilateral hydronephrosis. EXTREMITIES: There is no edema. LABORATORY DATA: The patient's WBC 25.4, hemoglobin 9.2, hematocrit 30.3 and platelet is 104. Chemi stry: Sodium 137, potassium 4.6, chloride 96, bicarbonate 33, BUN is 39, creatinine 1.4 and glucose 85 and PT 12.2, INR 1.1. ASSESSMENT: The patient has cancer of the lung with metastases and also has chronic obstructive pulm onary disease as well as respiratory distress and . PLAN: We are going to increase the and add digoxin 0.125 daily and also Proventil nebul izer given every 4 hours around the clock. So, the case was reviewed and discussed with Laine higignbotham Isak Mark MD cc: [id number] TT: 07/08/2016 18:15:53 Confirmation # [id number] Dictation # [id number] dn
[2016-07-08] MEDS: Albuterol 0.083% Inhal Sol (2.5 mg/3 mL) UD INH SCH (20:07)
[2016-07-08] MEDS ORDERED: (Lantus) Insulin Glargine, Recombinant SC SCH (22:00)
[2016-07-08] MEDS: Promethazine/Cod 6.25mg-10mg/5ml Syr UD PO SCH (22:34)
[2016-07-09] MEDS: Albuterol 0.083% Inhal Sol (2.5 mg/3 mL) UD INH SCH ×3 (01:03→13:40)
[2016-07-09] MEDS: Promethazine/Cod 6.25mg-10mg/5ml Syr UD PO SCH ×2 (06:16→13:49)
[2016-07-09 07:15] LABS: INR 1.1
[2016-07-09 07:23] LABS: POTASSIUM 4.5 mmol/L (3.6-5.2)
[2016-07-09 07:26] LABS: CALCIUM 8.3 mg/dl (8.6-10.4)
[2016-07-09 07:35] LABS: BASO % 0.1 % (0.0-2.0); HEMATOCRIT 28.5 % (34.0-47.0); LYMPH # 0.4 K/uL (1.0-4.3); LYMPH % 1.9 % (20.0-40.0); MEAN CELL VOLUME 89.2 fL (81.0-99.0); MEAN CORPUSCULAR HEMOGLOBIN 27.7 pg (27.0-31.0); MEAN CORPUSCULAR HGB CONC 31.1 g/dL (33.0-37.0); MEAN PLATELET VOLUME 9.6 fL (7.2-11.7); MONO # 0.7 K/uL (0.0-0.8); MONO % 3.6 % (0.0-10.0); NRBC % 0.3 % (0.0-2.0); PLATELET COUNT 126 K/uL (130-400); RED CELL DISTRIBUTION WIDTH 16.5 % (11.5-14.5); WHITE BLOOD COUNT 19.3 K/uL (4.8-10.8)
[2016-07-09 08:17] VITALS: O2SAT 95
[2016-07-09] MEDS: (Novolin R) Insulin Human Regular 100 units/ml vial SC SCH ×3 (08:20→16:55)
[2016-07-09] MEDS: Potassium & Sodium Phosphate PO SCH ×2 (08:20→16:41)
[2016-07-09] MEDS: GlipiZIDE 5 mg SR Tab PO SCH (09:32)
[2016-07-09] MEDS: Pantoprazole 40 mg EC Tab PO SCH (09:32)
[2016-07-09] MEDS: MethylPREDNISolone 40 mg Vial IVP SCH (09:32)
[2016-07-09 09:37] LABS: NEUTROPHIL 90 % (50-75); TOTAL CELLS COUNTED 100
[2016-07-09] MEDS: Cefepime IV 1 gm in Dextrose 50 ML IVPB SCH (11:01)
--- NOTE | 2016-07-09 14:50 | CP.PCM.PN ---
Subjective - Date & Time of Evaluation Date of Evaluation: 07/09/16 Time of Evaluation: 02:40 - Subjective Subjective: dictated Objective - Vital Signs/Intake and Output Vital Signs (last 24 hours): Temp Pulse Resp BP Pulse Ox 97.6 F 80 20 162/100 H 95 07/09/16 08:16 07/09/16 13:40 07/09/16 08:16 07/09/16 08:16 07/09/16 08:16 Intake and Output: 07/09/16 07/09/16 06:59 18:59 Intake Total 570 Balance 570 - Medications Medications: Current Medications Albuterol Sulfate (Albuterol 0.083% Inhal Elisbaet (2.5 Mg/3 Ml) Ud) 2.5 mg INH RQ6 [facility] Last Admin: 07/09/16 13:40 Dose: 2.5 mg Digoxin (Lanoxin) 0.125 mg PO DAILY@1800 [facility] Glipizide (Glucotrol Xl) 5 mg PO DAILY [facility] Last Admin: 07/09/16 09:32 Dose: 5 mg Cefepime HCl (Maxipime Iv 1 Gm Premix) 50 mls @ 100 mls/hr IVPB Q12H [facility] Last Admin: 07/09/16 11:01 Dose: 100 mls/hr Fluconazole (Diflucan Iv 100 Mg/50 Ml Ns) 50 mls @ 100 mls/hr IVPB Q24H [facility] Last Admin: 07/08/16 17:28 Dose: 100 mls/hr Insulin Glargine (Lantus) 5 unit SC HS [facility] Last Admin: 07/08/16 22:35 Dose: 5 units Insulin Human Regular (Novolin R) [address] [facility] PRN Reason: Protocol Last Admin: 07/09/16 12:10 Dose: 12 unit Methylprednisolone (Solu-Medrol) 40 mg IVP Q12 [facility] Last Admin: 07/09/16 09:32 Dose: 40 mg Metoprolol Tartrate (Lopressor) 50 mg PO BID [facility] Last Admin: 07/09/16 09:32 Dose: 50 mg Montelukast Sodium (Singulair) 10 mg PO HS [facility] Last Admin: 07/08/16 22:33 Dose: 10 mg Pantoprazole Sodium (Protonix Ec Tab) 40 mg PO DAILY [facility] Last Admin: 07/09/16 09:32 Dose: 40 mg Potassium Phos/Sodium Phos (Neutra-Phos) 1 pkt PO BIDCC [facility] Last Admin: 07/09/16 08:20 Dose: 1 pkt Promethazine HCl/Codeine (Phenergan/Codeine Oral Syrup) 5 ml PO Q8 [facility] Last Admin: 07/09/16 13:49 Dose: 5 ml - Labs Labs: 07/09/16 06:51 07/09/16 06:51 PT 12.6 SECONDS (9.7-12.2) H 07/09/16 06:51 INR 1.1 07/09/16 06:51 APTT 35 SECONDS (21-34) H D 07/03/16 13:24
--- NOTE | 2016-07-09 15:09 | CP.PCM.PN ---
Subjective - Date & Time of Evaluation Date of Evaluation: 07/09/16 Time of Evaluation: 11:00 - Subjective Subjective: Pt seen an d examined today , states feel s better, less cough, denies any chest pain, palpitations, dizziness, c/o sob with minimal excretion Objective - Vital Signs/Intake and Output Vital Signs (last 24 hours): Temp Pulse Resp BP Pulse Ox 97.6 F 80 20 162/100 H 95 07/09/16 08:16 07/09/16 13:40 07/09/16 08:16 07/09/16 08:16 07/09/16 08:16 Intake and Output: 07/09/16 07/09/16 06:59 18:59 Intake Total 570 Balance 570 - Medications Medications: Current Medications Albuterol Sulfate (Albuterol 0.083% Inhal Elisabet (2.5 Mg/3 Ml) Ud) 2.5 mg INH RQ6 [facility] Last Admin: 07/09/16 13:40 Dose: 2.5 mg Digoxin (Lanoxin) 0.125 mg PO DAILY@1800 [facility] Glipizide (Glucotrol Xl) 5 mg PO DAILY [facility] Last Admin: 07/09/16 09:32 Dose: 5 mg Cefepime HCl (Maxipime Iv 1 Gm Premix) 50 mls @ 100 mls/hr IVPB Q12H [facility] Last Admin: 07/09/16 11:01 Dose: 100 mls/hr Fluconazole (Diflucan Iv 100 Mg/50 Ml Ns) 50 mls @ 100 mls/hr IVPB Q24H [facility] Last Admin: 07/08/16 17:28 Dose: 100 mls/hr Insulin Glargine (Lantus) 5 unit SC [facility] Last Admin: 07/08/16 22:35 Dose: 5 units Insulin Human Regular (Novolin R) 0 unit SC ACHS [facility] PRN Reason: Protocol Last Admin: 07/09/16 12:10 Dose: 12 unit Methylprednisolone (Solu-Medrol) 40 mg IVP Q12 [facility] Last Admin: 07/09/16 09:32 Dose: 40 mg Metoprolol Tartrate (Lopressor) 50 mg PO BID [facility] Last Admin: 07/09/16 09:32 Dose: 50 mg Montelukast Sodium (Singulair) 10 mg PO [facility] Last Admin: 07/08/16 22:33 Dose: 10 mg Pantoprazole Sodium (Protonix Ec Tab) 40 mg PO DAILY [facility] Last Admin: 07/09/16 09:32 Dose: 40 mg Potassium Phos/Sodium Phos (Neutra-Phos) 1 pkt PO BIDCC [facility] Last Admin: 07/09/16 08:20 Dose: 1 pkt Promethazine HCl/Codeine (Phenergan/Codeine Oral Syrup) 5 ml PO Q8 [facility] Last Admin: 07/09/16 13:49 Dose: 5 ml - Labs Labs: 07/09/16 06:51 07/09/16 06:51 PT 12.6 SECONDS (9.7-12.2) H 07/09/16 06:51 INR 1.1 07/09/16 06:51 APTT 35 SECONDS (21-34) H D 07/03/16 13:24 - Constitutional Appears: Well, Non-toxic - Respiratory Exam Respiratory Exam: Decreased Breath Sounds, Rhonchi Assessment and Plan - Assessment and Plan (Free Text) Assessment: a/p 70 yr old female admitted for SOB/RESP .distress/ s/p intubation an d extubation HR- improved after digoxin started - 100,s urine culture - positive for gram negative bolivar- and treated with cefepime urine culture- repeat - yeast infection - diflucan started Pt accepted at [facility] for rehab and pt in agreement seen by Dr. Wiggins, cleared for discharge today from ID stand point and continue 3 more days of antibiotics Discharge plan discussed with Dr. Mark, stable for discharge to [facility] and Dr. Mark will follow the patient at [facility] Discharge plan discussed with patient
--- NOTE | 2016-07-09 15:32 | PN ---
DATE: 07/09/2016 The patient is awake, alert. She is on oxygen. She feels a little better. She denies any urinary s ymptoms; however, her urine grew yeast and she is getting respiratory treatments and steroids. She wa s seen by the palliative care. She does not want that, and she will be going to [facility] [place], I am told. PHYSICAL EXAMINATION: VITAL SIGNS: T-max is 97.6, pulse 80, blood pressure 162/100, respirations are 20. HEENT: Head is atraumatic, normocephalic. NECK: Supple. LUNGS: Have occasional wheeze on the right side. Left lung is unremarkable. HEART: S1, S2 regular. ABDOMEN: Soft, nontender, no guarding, no rigidity present. EXTREMITIES: No edema, clubbing or cyanosis. LABORATORY DATA: White count is 19.3. She is on steroids. Hemoglobin 8.9, hematocrit 28.5, platele t count is 126. Urine culture has yeast. I do not know why she is on isolation. That can be discont inued, as there is no resistant organisms at this time. Initially when she came, we thought we were going to see VRE, but that was not found. Chest x-ray showed a lung mass and a few nodules. Otherwi se, she has been stable. She did come in with respiratory failure. She has history of pulmonary embolism, lung mass and now w ith high white count, which may be due to steroids and has funguria and she is started on Diflucan. I would continue Diflucan and cefepime for 3 more days and keep her on steroids and taper them accord ing to the primary. Will follow with her primary as well as pulmonary. Bryan Mullen MD cc: [id number] TT: 07/09/2016 15:30:57 Confirmation # [id number] Dictation # [id number] rach
[2016-07-09] MEDS: Fluconazole IV 100mg/50 ml NS 50 ML IVPB SCH (16:41)
[2016-07-09 16:44] VITALS: BP 149/90; PULSE 101; RESP 21; TEMP 98.3
[2016-07-09 17:47] VITALS: PULSE 101
[2016-07-09] MEDS ORDERED: Digoxin 125 mcg (0.125 mg) Tab PO SCH (18:00)
--- NOTE | 2016-07-09 18:50 | CARD ---
APPROVED REPORT EKG Measurement Heart [id number] <Conclusion> Sinus tachycardia Right atrial enlargement Borderline ECG
--- NOTE | 2016-07-09 20:54 | PN ---
DATE: 07/09/2016 Today, patient is alert and awake. No shortness of breath, no chest pain, no dizziness, no palpitati ons, but the patient has shortness of breath on exertion. PHYSICAL EXAMINATION: VITAL SIGNS: The patient has a blood pressure of 149/90, pulse is , respirations are 20. NECK: Supple. LUNGS: There are some fine rales at the left base. HEART: Regular rate and rhythm, but tachycardic at times. ABDOMEN: Soft, nontender, positive hydronephrosis. EXTREMITIES: There is no edema. The patient now is taking the Solu-Medrol preferably q. 12 hours and also albuterol nebulizer every 6 hours. The patient now has improved and so we are going to send this patient to rehab where he will be able to continue to receive antibiotic therapy for 4 more days due to the pneumonia. Also, will continue to monitor this patient there in [facility] [place]. Isak Mark MD cc: [id number] TT: 07/09/2016 20:53:30 Confirmation # [id number] Dictation # [id number] rach
--- NOTE | 2016-07-14 21:21 | DS ---
The patient is a 70-year-old female with history of CA of the lung, hydronephrosis and COPD. The hector arevalo was brought to the Emergency Room because the patient was found to be short of breath and the pa tient was on in respiratory distress and was intubated and admitted to ICU. In the ICU, the pa morgan was found to be tachycardic and also was on respirator. The patient progressively has somewhat improved and was transferred to the floor. The patient has the diagnosis of pneumonia and also had the diagnoses of respiratory failure, , chronic renal failure and COPD. Also, the patient has a history of pulmonary embolism. The patient had a consult with YUAN Gallegos and also by the ICU t jailene. The patient was transferred to the floor and was also put on Solu-Medrol and antibiotic therapy for which the patient has improved and decision was made to discharge the patient home on oxygen, wh ich was done after consulting with the case supervisor and social media job titles. Oxygen will be on place at th e time the patient gets to home. We are going to continue to follow this patient in the office. Isak Mark MD cc: [id number] TT: 07/14/2016 21:21:18 jose miguel
== END 2016-07-09 19:40 | DRG 208 ==
LOC: C.ER 09:42 → C.9E 11:10 → C.9I 11:57 → C.3T 07-07 07:27
PROVIDERS: ADMIT Internal Medicine; ATTEND Specialist
PROC: 5A1945Z Respiratory Ventilation, 24-96 Consecutive Hours (ICD-10-PCS; principal; 2016-06-29)
PROC: 0BH17EZ Insertion of Endotracheal Airway into Trachea, Via Natural or Artificial Opening (ICD-10-PCS; 2016-06-29)
DX: J44.0 Chronic obstructive pulmonary disease with (acute) lower respiratory infection (principal); J96.01 Acute respiratory failure with hypoxia; I26.99 Other pulmonary embolism without acute cor pulmonale; J18.9 Pneumonia, unspecified organism; N13.30 Unspecified hydronephrosis; E11.22 Type 2 diabetes mellitus with diabetic chronic kidney disease; C34.90 Malignant neoplasm of unspecified part of unspecified bronchus or lung; D69.6 Thrombocytopenia, unspecified; N39.0 Urinary tract infection, site not specified; J45.901 Unspecified asthma with (acute) exacerbation; B37.9 Candidiasis, unspecified; J44.1 Chronic obstructive pulmonary disease with (acute) exacerbation; I49.9 Cardiac arrhythmia, unspecified; I12.9 Hypertensive chronic kidney disease with stage 1 through stage 4 chronic kidney disease, or unspecified chronic kidney disease; J20.9 Acute bronchitis, unspecified; I25.10 Atherosclerotic heart disease of native coronary artery without angina pectoris; E78.00 Pure hypercholesterolemia, unspecified; M19.90 Unspecified osteoarthritis, unspecified site; D64.9 Anemia, unspecified; N18.9 Chronic kidney disease, unspecified; E78.5 Hyperlipidemia, unspecified; T38.0X5A Adverse effect of glucocorticoids and synthetic analogues, initial encounter; Y95 Nosocomial condition; Z51.5 Encounter for palliative care; Z87.442 Personal history of urinary calculi; Z87.891 Personal history of nicotine dependence; Z90.2 Acquired absence of lung [part of]; Z95.5 Presence of coronary angioplasty implant and graft

== ENCOUNTER 2016-08-11 13:54 | Inpatient (IN) | payer MEDICARE ==
[2016-08-11 13:54] VITALS: BMI 24.2
--- NOTE | 2016-08-11 14:38 | C.PDOC ---
History Of Present Illness 70F c/o constant right side lateral chest pain for 3 days and SOB. no exac or reliev fx. was dc from here earlier this month after admission for resp failure. she has active lung ca on chemo. also hx of pe on coumadin. Time Seen by Provider: 08/11/16 14:23 Past Medical History Vital Signs: Last Vital Signs Temp 97.7 F 08/12/16 16:01 Pulse 104 H 08/12/16 16:01 Resp 20 08/12/16 16:01 BP 121/70 08/12/16 16:01 Pulse Ox 100 08/12/16 16:01 - Medical History PMH: Anemia, Arthritis, Asthma, Cardia Arrhythmia, COPD, Diabetes, HTN, Hypercholesterolemia, Kidney Stones (CYSTO/STENT 2009), Malignancy (Lung), Pulmonary Embolism, Chronic Kidney Disease Denies: Sleep Apnea Surgical History: Coronary Stent (2004) Denies: Pacemaker - [facility] Procedures CLOSED [PERCUTANEOUS] [NEEDLE] BIOPSY OF LUNG (12/05/13) CYSTOGRAM NEC (11/28/13) DRAINAGE OF RIGHT KNEE JOINT, PERCUTANEOUS APPROACH, DIAGN (01/29/16) EXCISION OF DESCENDING COLON, ENDO, DIAGN (03/25/16) INFLUENZA VACCINATION (01/31/14) INSERT INTERCOSTAL CATH (12/05/13) INSERTION OF ENDOTRACHEAL AIRWAY INTO TRACHEA, VIA OPENING (06/28/16) OTHER LOBECTOMY OF LUNG (01/31/14) RESPIRATORY VENTILATION, 24-96 CONSECUTIVE HOURS (06/28/16) RETROGRADE PYELOGRAM (11/28/13) VACCINATION NEC (12/05/13) Family History: States: Other Other Family History: nc - Social History Hx Tobacco Use: Yes (former smoker) Hx Alcohol Use: No Hx Substance Use: No - Immunization History Hx Tetanus Toxoid Vaccination: No Hx Influenza Vaccination: No Hx Pneumococcal Vaccination: No Review Of Systems Except As Marked, All Systems Reviewed And Found Negative. Constitutional: Negative for: Fever, Chills, Weakness, Malaise Cardiovascular: Positive for: Chest Pain. Negative for: Edema, Light Headedness Respiratory: Positive for: Shortness of Breath. Negative for: Cough, Hemoptysis Gastrointestinal: Negative for: Nausea, Vomiting, Abdominal Pain Neurological: Negative for: Weakness, Numbness Physical Exam - Physical Exam Appears: Well, Non-toxic Skin: Warm, Dry Head: Atraumatic Eye(s): bilateral: PERRL Nose: No Epistaxis Tongue: No Swelling Lips: No Swelling Neck: Normal ROM Cardiovascular: Rhythm Regular Respiratory: No Decreased Breath Sounds, No Accessory Muscle Use, No Rales, No Rhonchi, No Wheezing Gastrointestinal/Abdominal: Soft, No Tenderness Extremity: No Calf Tenderness, No Swelling Pulses: Left Radial: Normal, Right Radial: Normal, Left Dorsalis Pedis: Normal, Right Dorsalis Pedis: Normal Neurological/Psych: Oriented x3, Normal Motor, Normal Sensation, Other (no focal deficits) ED Course And Treatment - Laboratory Results Result Diagrams: 08/12/16 07:13 08/12/16 07:13 Medical Decision Making Medical Decision Making: EKG: interpreted by NSBebeto [address] Mark who will admit Disposition - Disposition Disposition: HOSPITALIZED Disposition Time: 16:01 Condition: STABLE - Clinical Impression Clinical Impression: Chest pain
--- NOTE | 2016-08-11 15:01 | RAD ---
HISTORY: sob COMPARISON: Chest x-ray performed 07/02/16 TECHNIQUE: Chest, one view. FINDINGS: Right-sided MediPort extends expected location of the cavoatrial junction. LUNGS: Persistent large right infrahilar mass. Scattered nodular densities surrounding this mass. Nodular density previously demonstrated in the left mid lung field is not well-visualized on the current study. Mild venous congestion. Please note that chest x-ray has limited sensitivity for the detection of pulmonary masses. PLEURA: Blunting of the right costophrenic angle may reflect pleural thickening or trace effusion. No definite pneumothorax. CARDIOVASCULAR: The cardiomediastinal silhouette appears within normal limits of size. OSSEOUS STRUCTURES: Degenerative changes. Probable bilateral calcific tendinitis. VISUALIZED UPPER ABDOMEN: Unremarkable. OTHER FINDINGS: None. IMPRESSION: Right-sided MediPort. Persistent large right infrahilar mass. Scattered nodular densities surrounding this mass. Nodular density previously demonstrated in the left mid lung field is not well-visualized on the current study. Mild venous congestion. Blunting of the right costophrenic angle may reflect pleural thickening or trace effusion.
[2016-08-11] MEDS ORDERED: Morphine 4 MG/ML VIAL ONE (15:20)
[2016-08-11 15:22] LABS: VENOUS BLOOD GAS BASE EXCESS -5.9 mmol/L (0.0-2.0); VENOUS BLOOD GAS PCO2 33 mmHg (40-60); VENOUS BLOOD PH 7.36 (7.32-7.43)
[2016-08-11 15:25] LABS: BASO # 0.1 K/uL (0.0-0.2); BASO % 0.5 % (0.0-2.0); EOS % 0.4 % (0.0-4.0); HEMATOCRIT 27.1 % (34.0-47.0); LYMPH # 1.5 K/uL (1.0-4.3); LYMPH % 12.1 % (20.0-40.0); MEAN CORPUSCULAR HEMOGLOBIN 26.2 pg (27.0-31.0); MEAN CORPUSCULAR HGB CONC 30.4 g/dL (33.0-37.0); MEAN PLATELET VOLUME 7.5 fL (7.2-11.7); MONO # 1.5 K/uL (0.0-0.8); MONO % 12.4 % (0.0-10.0); NRBC % 0.1 % (0.0-2.0); RED CELL DISTRIBUTION WIDTH 19.8 % (11.5-14.5); WHITE BLOOD COUNT 12.1 K/uL (4.8-10.8)
[2016-08-11 15:30] LABS: MEAN CELL VOLUME 86.1 fL (81.0-99.0)
[2016-08-11 15:35] LABS: POTASSIUM 3.9 mmol/L (3.6-5.2)
[2016-08-11 15:37] LABS: ALB/GLOB RATIO 0.6 (1.0-2.1); BILIRUBIN,TOTAL 0.3 mg/dL (0.2-1.3)
[2016-08-11 15:38] LABS: CALCIUM 8.3 mg/dl (8.6-10.4)
[2016-08-11 15:41] LABS: INR 3.9
[2016-08-11 15:48] LABS: TROPONIN I 0.016 ng/mL (0.00-0.120)
[2016-08-11] MEDS ORDERED: Sodium Chloride 0.9% 500 ML IV ONE (16:48)
[2016-08-11] MEDS ORDERED: (Novolin R) Insulin Human Regular 100 units/ml vial IV ONE (16:48)
[2016-08-11] MEDS ORDERED: Dextrose 50% SYRINGE Inj (50 ml) IV STA (16:49)
[2016-08-11] MEDS ORDERED: Dextrose 50% SYRINGE Inj (50 ml) ONE (16:51)
[2016-08-11] MEDS ORDERED: Albuterol 0.083% Inhal Sol (2.5 mg/3 mL) UD INH PRN (20:43)
[2016-08-11] MEDS ORDERED: Pantoprazole 40 mg EC Tab PO ONE (22:15)
[2016-08-11] MEDS: MethylPREDNISolone 40 mg Vial IVP SCH (22:56)
[2016-08-11] MEDS: guaiFENesin DM 200 mg-20 mg/10 ml UD PO PRN (22:59)
[2016-08-12] MEDS: Nitroglycerin 2% Ointment Foilpak UD TOP SCH ×4 (00:06→18:48)
[2016-08-12] MEDS: Albuterol 0.083% Inhal Sol (2.5 mg/3 mL) UD INH SCH ×5 (01:14→19:25)
[2016-08-12] MEDS: MethylPREDNISolone 40 mg Vial IVP SCH ×4 (04:03→22:32)
--- NOTE | 2016-08-12 07:11 | HP ---
The patient is a 70-year-old female with a history of CA of the lung with mets and hypertension and d iabetes. The patient has also history of pulmonary embolism. The patient has multiple admissions an d in and out of the hospital for the past few months and the patient was in the rehab and discharged home about 3 days, but came back to the Emergency Room complaining of shortness of breath and also ch est pain. The patient ____ the shortness of breath today and ____ the patient to come to the Emergen cy Room because of some chest tightness and the patient was evaluated in the Emergency Room and was a dmitted. ALLERGIES: The patient has no known allergy. PAST SURGICAL HISTORY: As I mentioned, history of CA of the lung with metastasis, diabetes, hyperten joseluis and also patient has history of left lung lobectomy and history of COPD. The patient has also h istory of as I mentioned pulmonary embolism. MEDICATIONS: The patient was on multiple medications including warfarin, albuterol, glipizide, digox in, metoprolol and montelukast. SOCIAL HISTORY: The patient was a heavy smoker, but has stopped for just 1 year and no history of al cohol abuse. FAMILY HISTORY: No inherited disease. REVIEW OF SYSTEMS: RESPIRATORY: Shortness of breath with minor effort. Positive cough with yellowish sputum. CARDIOVASCULAR: The patient had chest pain, but now there is no chest pain. GASTROINTESTINAL: No nausea or vomiting. GENITOURINARY: No dysuria. NEUROLOGIC: The patient feels very weak. PHYSICAL EXAMINATION: GENERAL: The patient is alert, awake, and oriented x 3. VITAL SIGNS: Blood pressure of 107/65, pulse 102, respirations 20, temperature 97.9. HEENT: Head is normocephalic. Mouth is no thrush. LUNGS: There are some rales bilaterally. HEART: Tachycardic. ABDOMEN: Soft. Mild epigastric tenderness. Positive bowel sounds. EXTREMITIES: There is no edema: NEUROLOGIC: The patient is awake. The patient had some blood tests done and the PT is 46.1, INR 2.9 just done by me. The ____ is more than 5250. Hematology: WBC is 12, hemoglobin 8.3, hematocrit 27.1, and platelets 343. Chemistry: Sodium 134, potassium 2.9, chloride 99, BUN 19, creatinine 1.5, ____ is 46, ____ 2 or 3 and proBNP 1 000. Total protein is 6, albumin 2.3. AST is 24, ALT 28, ____ 0.3. So the patient has also a chest x-ray. The chest x-ray showed persistent right infrahilar mass, scattered nodular density surroundi ng this mass. ____ previously seen in the left mid lung field is not well visualized on the current study. Mild venous congestion. So the patient is admitted with DIAGNOSES: 1. Exacerbation of chronic obstructive pulmonary disease. 2. Chest pain. 3. Cancer of the lung with metastasis. 4. Diabetes. 5. Hypertension. 6. Rule out new pulmonary ____. ____ the patient will have blood work ordered and also have consult with Dr. Casillas, pulmonary, and al hayley with Lynn, cardiology. Isak Mark MD cc: [id number] TT: 08/12/2016 07:10:12 tn
[2016-08-12 07:27] LABS: BASO % 0.1 % (0.0-2.0); HEMATOCRIT 24.5 % (34.0-47.0); LYMPH # 0.4 K/uL (1.0-4.3); MEAN CELL VOLUME 87.4 fL (81.0-99.0); MEAN CORPUSCULAR HEMOGLOBIN 26.7 pg (27.0-31.0); MEAN CORPUSCULAR HGB CONC 30.6 g/dL (33.0-37.0); MEAN PLATELET VOLUME 7.8 fL (7.2-11.7); MONO # 0.2 K/uL (0.0-0.8); MONO % 1.1 % (0.0-10.0); PLATELET COUNT 321 K/uL (130-400); RED CELL DISTRIBUTION WIDTH 19.5 % (11.5-14.5)
[2016-08-12 07:38] LABS: INR 5.2
[2016-08-12 07:47] LABS: POTASSIUM 4.5 mmol/L (3.6-5.2)
[2016-08-12 07:50] LABS: ALB/GLOB RATIO 0.7 (1.0-2.1); BILIRUBIN,TOTAL 0.5 mg/dL (0.2-1.3); TOTAL PROTEIN 5.4 g/dL (6.3-8.3)
[2016-08-12 07:51] LABS: CALCIUM 7.4 mg/dl (8.6-10.4)
[2016-08-12] MEDS ORDERED: Fluticasone-Salmeterol 250-50mcg Diskus INH SCH (08:00)
[2016-08-12 09:08] LABS: TOTAL CELLS COUNTED 100
[2016-08-12 09:09] LABS: NEUTROPHIL 96 % (50-75)
[2016-08-12] MEDS: Pantoprazole 40 mg EC Tab PO SCH (09:25)
[2016-08-12] MEDS: guaiFENesin DM 200 mg-20 mg/10 ml UD PO PRN ×3 (09:47→23:05)
[2016-08-12] MEDS ORDERED: GlipiZIDE 5 mg SR Tab PO SCH ×2 (10:00)
--- NOTE | 2016-08-12 10:24 | NM ---
COMPARISON: 08/12/2016 chest 06/12/2016 ventilation-perfusion scan. TECHNIQUE: 10.6 mCi technetium 99-m Xe-133 Gas. 4.0 mCI technetium 99-m MAA administered intravenously. FINDINGS: VENTILATION COMPONENT: Persistence none lesion defect right upper lobe consistent with findings on recent chest x-ray and prior ventilation-perfusion scan. PERFUSION COMPONENT: Persistent perfusion defect right upper lobe similar to that seen on the prior study corresponding to chest x-ray abnormality and ventilation defect. Additional small non geographic defects in the left lung. IMPRESSION: Low probability ventilation perfusion scan for pulmonary embolism.
[2016-08-12] MEDS ORDERED: (Novolog) Insulin Aspart, Recombinant 100 u/ml 10 ml vial SC ONE (12:43)
--- NOTE | 2016-08-12 14:13 | VASCLAB ---
PROCEDURE: Lower Extremity Venous Duplex Exam. HISTORY: chest pain PRIORS: None. TECHNIQUE: Bilateral common femoral, femoral, popliteal and posterior tibial, peroneal and great saphenous veins were evaluated. Flow was assessed with color Doppler, compressibility, assessment of phasic flow and augmentation response. Report prepared by KENRICK Newsome, RVT FINDINGS: RIGHT: 1. Common Femoral Vein: 1.1. Compressibility - Fully compressible: Thrombus - None : Flow - Phasic: Augmentation -Normal: Reflux - None. 2. Femoral Vein: 2.1. Compressibility - Fully compressible: Thrombus - None : Flow - Phasic: Augmentation -Normal: Reflux - None. 3. Popliteal Vein: 3.1. Compressibility - Fully compressible: Thrombus - None : Flow - Phasic: Augmentation -Normal: Reflux - None. 4. Posterior Tibial Vein: 4.1. Compressibility - Fully compressible: Thrombus - None: Flow - Phasic: Augmentation -Normal: Reflux - None. 5. Peroneal Vein: 5.1. Compressibility - Fully compressible: Thrombus - None: Flow - Phasic: Augmentation -Normal: Reflux - None. 6. Great Saphenous Vein: 6.1. Compressibility - Fully compressible: Thrombus - None: Flow - Phasic: Augmentation - Normal: Reflux - None. LEFT: 1. Common Femoral Vein: 1.1. Compressibility - Fully compressible: Thrombus - None: Flow - Phasic: Augmentation -Normal: Reflux - None. 2. Femoral Vein: 2.1. Compressibility - Fully compressible: Thrombus - None: Flow - Phasic: Augmentation -Normal: Reflux - None. 3. Popliteal Vein: 3.1. Compressibility - Fully compressible: Thrombus - None : Flow - Phasic: Augmentation -Normal: Reflux - None. 4. Posterior Tibial Vein: 4.1. Compressibility - Fully compressible: Thrombus - None: Flow - Phasic: Augmentation -Normal: Reflux - None. 5. Peroneal Vein: 5.1. Compressibility - Fully compressible: Thrombus - None: Flow - Phasic: Augmentation -Normal: Reflux - None. 6. Great Saphenous Vein: 6.1. Compressibility - Fully compressible: Thrombus - None: Flow - Phasic: Augmentation - Normal: Reflux - None. OTHER FINDINGS: Right: None significant. Left: None significant. IMPRESSION: Right: No evidence of deep or superficial vein thrombosis of the right lower extremity. Normal valve function noted of the right side. Left: No evidence of deep or superficial vein thrombosis of the left lower extremity. Normal valve function noted of the left side.
[2016-08-12] MEDS: Digoxin 125 mcg (0.125 mg) Tab PO SCH (18:47)
--- NOTE | 2016-08-12 18:59 | CON ---
DATE: 08/12/2016 REASON FOR CONSULTATION: Shortness of breath and chest pain. 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 The patient has a history of pulmonary embolism in the p ast and is on Coumadin therapy. She was admitted because of right-sided chest discomfort for the pas t 3 days as well as shortness of breath. The patient is experiencing cough, but nonproductive and sh e denies any hemoptysis. SOCIAL HISTORY: The patient is a nonsmoker. PAST MEDICAL HISTORY: Anemia, arthritis, asthma, COPD, diabetes, hypertension, hyperlipidemia, kidne y stones, lung CA, pulmonary embolism and chronic renal insufficiency. CURRENT MEDICATIONS: Albuterol inhaler q.6 hours, Rocephin 1 gram intravenously daily, Crestor 5 mg once a day, glipizide 5 mg once a day, Lanoxin 0.125 mg once a day, Lopressor 50 mg twice a day, pneu mococcal vaccine was given, Robitussin 10 mL p.o. q.4 hours, Solu-Medrol 40 mg intravenously q.6 lissa rs, Singulair 10 mg at bedtime. REVIEW OF SYSTEMS: No hemoptysis, no fever or chills. No melena and no hematuria. PHYSICAL EXAMINATION: GENERAL: The patient is an elderly female who does not appear to be in acute distress. VITAL SIGNS: Blood pressure 115/69, heart rate 103, temperature 97.7, respirations 18. HEENT: Pale conjunctivae. CHEST: Right basal rhonchi. HEART: S1, S2 regular. ABDOMEN: Soft. EXTREMITIES: No edema. LABORATORY DATA: CBC: WBC 18, hemoglobin 7.5, hematocrit 24.5, platelet count 321,000. BUN and cre atinine and 1.5 respectively. Glucose is 339. The rest of the SMA-7 is within normal limits. Calcium is below normal at 7.4. Three sets of troponins are not elevated. INR is 5.2 today, yester day was 3.9. D-dimer is more than 5250. A ventilation perfusion scan done yesterday, low probabilit y for pulmonary embolus. Venous Doppler of the lower extremities done yesterday, no evidence of DVT in either lower extremity. EKG revealed normal sinus rhythm. A chest x-ray revealed right middle lo be mass and prominent bronchovascular markings. ASSESSMENT: 1. Right-sided chest pain, rule out bony invasion by the tumor itself and/or pleurisy. 2. Chronic renal insufficiency. 3. Iatrogenic coagulopathy. 4. Mildly depressed ejection fraction. The most recent echo in June revealed ejection fraction in the range of 40% to 45% with mild dyskinesis in the mid inferior wall. RECOMMENDATIONS: Case was discussed with the primary physician, Dr. Isak Mark. Coumadin is on h old. Continue Solu-Medrol 40 mg intravenously q.6 hours, Protonix 40 mg p.o. once a day. Consider c hest CT scan without contrast. Consider also blood transfusion if hemoglobin and hematocrit count go es further down and if there is evidence of overt bleeding, consider vitamin K replacement. No invas bharath cardiac workup is justified in this case. Parrish Bailey MD cc: [id number] TT: 08/12/2016 18:58:44 Confirmation # [id number] Dictation # [id number] dn
--- NOTE | 2016-08-12 19:32 | PN ---
DATE: 08/12/2016 SUBJECTIVE: Today, the patient is alert and awake, complaining of shortness of breath on exertion an d ____ complaining of congestive cough. The patient denies any chest pain today. PHYSICAL EXAMINATION: VITAL SIGNS: The patient has a blood pressure of 121/70, pulse is 104, respirations 20, temperature 97.7. NECK: Supple. No JVD. LUNGS: There are some rales bilaterally, also some rhonchi noted. HEART: Tachycardic. ABDOMEN: Soft. Mild tenderness in the epigastric area. EXTREMITIES: There is no edema. LABORATORY DATA: WBC 18,000, the patient evidently on Solu-Medrol. The hemoglobin 7.5, hematocrit 2 4.5 and platelet is 221. Chemistry showed that the sodium 135, potassium 4.5, chloride is 101, bicar b is 24, BUN 19, creatinine 1.5 and glucose of 339. AST is 14, ALT 24, alkaline phosphatase is 87. Albumin is 2.3, bilirubin 3.2, albumin bilirubin ratio is 0.7. The patient had a lung scan that was done that shows persistent lung lesion defect, right upper lobe consistent with the findings on recen t chest x-ray and prior ventilation perfusion scan, persistent perfusion defect right upper lobe seen on the prior study, corresponding to chest x-ray abnormality and ventilation defect. IMPRESSION: ____ ventilation perfusion scan for pulmonary embolism. PLAN: We are going to continue nebulizer treatment, continue the steroid, the Solu-Medrol and contin ue also to monitor the heart rate. The case reviewed and discussed with Laine MINAYA. Isak Mark MD cc: [id number] TT: 08/12/2016 19:31:16 Confirmation # [id number] Dictation # [id number] nicola
[2016-08-12] MEDS ORDERED: (Novolin R) Insulin Human Regular 100 units/ml vial SC SCH (22:00)
[2016-08-13] MEDS: Nitroglycerin 2% Ointment Foilpak UD TOP SCH ×4 (00:55→17:54)
[2016-08-13] MEDS: Albuterol 0.083% Inhal Sol (2.5 mg/3 mL) UD INH SCH ×4 (01:54→20:44)
[2016-08-13] MEDS: MethylPREDNISolone 40 mg Vial IVP SCH ×2 (04:44→09:15)
[2016-08-13 06:49] LABS: INR 4.4
[2016-08-13 07:12] LABS: BASO % 0.1 % (0.0-2.0); HEMATOCRIT 28.2 % (34.0-47.0); LYMPH # 0.8 K/uL (1.0-4.3); LYMPH % 4.5 % (20.0-40.0); MEAN CORPUSCULAR HEMOGLOBIN 26.7 pg (27.0-31.0); MEAN CORPUSCULAR HGB CONC 31.4 g/dL (33.0-37.0); MEAN PLATELET VOLUME 7.6 fL (7.2-11.7); MONO # 0.7 K/uL (0.0-0.8); MONO % 3.8 % (0.0-10.0); PLATELET COUNT 364 K/uL (130-400); RED CELL DISTRIBUTION WIDTH 18.1 % (11.5-14.5); WHITE BLOOD COUNT 17.7 K/uL (4.8-10.8)
[2016-08-13 07:27] LABS: MEAN CELL VOLUME 85.1 fL (81.0-99.0)
[2016-08-13] MEDS ORDERED: (Novolog Mix 70/30) Insulin Aspart/Insulin Aspar 100 units/ml SC SCH ×2 (07:30→16:30)
[2016-08-13 09:02] LABS: NEUTROPHIL 91 % (50-75); NUCLEATED RED BLOOD CELL 1 % (0-0); TOTAL CELLS COUNTED 100
[2016-08-13] MEDS: Pantoprazole 40 mg EC Tab PO SCH (09:05)
[2016-08-13] MEDS: GlipiZIDE 10 mg SR Tab PO SCH ×2 (09:05→17:54)
[2016-08-13] MEDS: guaiFENesin DM 200 mg-20 mg/10 ml UD PO PRN ×3 (09:05→22:15)
[2016-08-13] MEDS: (Novolog) Insulin Aspart, Recombinant 100 u/ml 10 ml vial SC SCH ×4 (09:06→23:07)
--- NOTE | 2016-08-13 14:22 | PN ---
DATE: 08/13/2016 The patient is experiencing dry cough, mild shortness of breath. PHYSICAL EXAMINATION: VITAL SIGNS: Blood pressure 136/63, heart rate 105, temperature 97.8, respirations 20. HEENT: Pale conjunctivae. CHEST: Right basal rhonchi. HEART: S1, S2 regular. ABDOMEN: Soft. EXTREMITIES: No edema. LABORATORIES: CBC: WBC 17.7, hemoglobin 8.9, hematocrit 28.2, platelet count 364,000. Today's bloo d sugars are 374 and 407. Hemoglobin A1c 7.1. Today's INR is 4.4. ASSESSMENT: 1. Recurrent right lower lobe squamous cell carcinoma. 2. Improving iatrogenic coagulopathy. 3. History of pulmonary embolism in the past. 4. Uncontrolled diabetes mellitus. 5. Chronic renal insufficiency. RECOMMENDATIONS: Continue current albuterol inhaler. Continue IV Rocephin at 1 gram daily, Crestor at 5 mg once a day, glipizide at 10 mg twice a day, Lanoxin 0.125 mg daily, Lopressor at 50 mg twice a day, Singulair at 10 mg at bedtime, Solu-Medrol 40 mg intravenously twice a day. Renew telemetry. Parrish Bailey MD cc: [id number] TT: 08/13/2016 14:20:53 Confirmation # [id number] Dictation # [id number] en
[2016-08-13] MEDS: Digoxin 125 mcg (0.125 mg) Tab PO SCH (18:29)
--- NOTE | 2016-08-13 19:02 | CP.PCM.CON ---
History of Present Illness - History of Present Illness History of Present Illness: CHART REVIEWED, PT SEEN AND EXAMINED. NOTIFIIED TODAY. 70 YO B FEMALE WITH A HX HTN, DM, GOUT, RIGHT LUNG CA WITH METS, S/P LOBECTOMY, CHEMO AND RT, COPD, CHRONIC RESP FAILURE, S/P PE LAST YEAR, ADM 08/11/16 WITH INCREASED MOD-SEVERE SOB AT REST X 3 DAYS., +COUGH +YELLOW SPUTUM., NO HEMOPTYSIS., NO RELIEF WITH HOME NEB +HOME O2 AT 2L., NO RECENT CHEMO. Review of Systems - Review of Systems All systems: reviewed and no additional remarkable complaints except - Constitutional Constitutional: absent: Chills, Weight Loss - EENT Eyes: absent: Blurred Vision, Loss of Vision Ears: absent: Decreased Hearing Nose/Mouth/Throat: absent: Nasal Congestion - Cardiovascular Cardiovascular: Chest Pain - Respiratory Respiratory: Cough, Dyspnea, Dyspnea on Exertion, Wheezing. absent: Hemoptysis - Gastrointestinal Gastrointestinal: absent: Nausea, Vomiting - Genitourinary Genitourinary: absent: Change in Urinary Stream - Musculoskeletal Musculoskeletal: Arthralgias - Integumentary Integumentary: absent: Rash - Neurological Neurological: absent: Confusion, Focal Weakness - Psychiatric Psychiatric: absent: Behavioral Changes, Confusion - Endocrine Endocrine: absent: Change in Body Appearance, Polydipsia, Polyphagia - Hematologic/Lymphatic Hematologic: As Per HPI Past Patient History - Infectious Disease Hx of Infectious Diseases: None - Tetanus Immunizations Tetanus Immunization: Unknown - Past Medical History & Family History Past Medical History?: Yes Past Family History: Reviewed and not pertinent - Past Social History Smoking Status: Former Smoker Chewing Tobacco Use: No Cigar Use: No Alcohol: None - CARDIAC Hx Cardia Arrhythmia: Yes Hx Hypercholesterolemia: Yes Hx Hypertension: Yes Hx Pacemaker: No - PULMONARY Hx Respiratory Disorders: Yes Hx Asthma: Yes Hx Chronic Obstructive Pulmonary Disease (COPD): Yes Hx Lung Cancer: Yes Hx Pulmonary Embolism: Yes Hx Sleep Apnea: No - NEUROLOGICAL Hx Neurological Disorder: No Hx Paralysis: No - HEENT Hx HEENT Problems: Yes Hx Epistaxis: Yes Other/Comment: eye glasses for reading - RENAL Hx Chronic Kidney Disease: Yes Hx Kidney Stones: Yes (CYSTO/STENT 2009) - ENDOCRINE/METABOLIC Hx Endocrine Disorders: Yes Hx Diabetes Mellitus Type 2: Yes - HEMATOLOGICAL/ONCOLOGICAL Hx Anemia: Yes Hx Cancer: Yes Hx Chemotherapy: Yes Hx Metastesis: Yes - INTEGUMENTARY Hx Dermatological Problems: No - MUSCULOSKELETAL/RHEUMATOLOGICAL Hx Arthritis: Yes Hx Gout: Yes - GASTROINTESTINAL Hx Gastrointestinal Disorders: Yes Hx Constipation: Yes - GENITOURINARY/GYNECOLOGICAL Hx Genitourinary Disorders: Yes - PSYCHIATRIC Hx Psychophysiologic Disorder: No Hx Substance Use: No - SURGICAL HISTORY Hx Coronary Stent: Yes (2004) Hx Pulmonary Surgery: Yes - ANESTHESIA Hx Anesthesia: Yes Hx Anesthesia Reactions: No Hx Malignant Hyperthermia: No Meds Allergies/Adverse Reactions: Allergies Allergy/AdvReac Type Severity Reaction Status Date / Time No Known Allergies Allergy Verified 08/11/16 14:42 - Medications Medications: Current Medications Albuterol Sulfate (Albuterol 0.083% Inhal Elisabet (2.5 Mg/3 Ml) Ud) 2.5 mg INH RQ6 [facility] Last Admin: 08/13/16 13:04 Dose: 2.5 mg Digoxin (Lanoxin) 0.125 mg PO DAILY@1800 [facility] Last Admin: 08/13/16 18:29 Dose: 0.125 mg Glipizide (Glucotrol Xl) 10 mg PO BID [facility] Last Admin: 08/13/16 17:54 Dose: 10 mg Guaifenesin/Dextromethorphan (Robitussin Dm) 10 ml PO Q4H PRN PRN Reason: Cough and congestion Last Admin: 08/13/16 13:09 Dose: 10 ml Ceftriaxone Sodium 1 gm/ (Sodium Chloride) 100 mls @ 100 mls/hr IVPB DAILY [facility] Last Admin: 08/13/16 09:13 Dose: 100 mls/hr Insulin Aspart (Novolog) 0 unit SC ACHS [facility] PRN Reason: Protocol Last Admin: 08/13/16 17:55 Dose: 6 unit Insulin Aspart (Novolog Mix 70/30 (70/30 Units/Ml)) 25 units SC ACB [facility] Last Admin: 08/13/16 09:06 Dose: 25 units Insulin Aspart (Novolog Mix 70/30 (70/30 Units/Ml)) 20 units SC ACD [facility] Last Admin: 08/13/16 17:54 Dose: 20 units Methylprednisolone (Solu-Medrol) 40 mg IVP Q12 [facility] Metoprolol Tartrate (Lopressor) 50 mg PO BID [facility] Last Admin: 08/13/16 17:54 Dose: 50 mg Montelukast Sodium (Singulair) 10 mg PO HS [facility] Last Admin: 08/12/16 22:33 Dose: 10 mg Nitroglycerin (Nitro-Bid 2% Oint) 0.5 ea TOP Q6H [facility] Last Admin: 08/13/16 17:54 Dose: 0.5 ea Pantoprazole Sodium (Protonix Ec Tab) 40 mg PO DAILY [facility] Last Admin: 08/13/16 09:05 Dose: 40 mg Pneumococcal Polyvalent Vaccine (Pneumovax 23 Vaccine) 0.5 ml IM .ONCE ONE Stop: 08/14/16 22:04 Rosuvastatin Calcium (Crestor) 5 mg PO [facility] Last Admin: 08/12/16 22:32 Dose: 5 mg Physical Exam - Constitutional Appears: No Acute Distress - Head Exam Head Exam: ATRAUMATIC, NORMOCEPHALIC - Eye Exam Eye Exam: EOMI, Normal appearance. absent: Scleral icterus - ENT Exam ENT Exam: Mucous Membranes Moist, Normal External Ear Exam - Neck Exam Neck exam: Positive for: Normal Inspection. Negative for: Tenderness - Respiratory Exam Respiratory Exam: Decreased Breath Sounds, Prolonged Expiratory Phase. absent: Accessory Muscle Use, Chest Wall Tenderness - Cardiovascular Exam Cardiovascular Exam: RRR, +S1, +S2 - GI/Abdominal Exam GI & Abdominal Exam: Soft. absent: Tenderness - Rectal Exam Rectal Exam: Deferred - Extremities Exam Extremities exam: Negative for: calf tenderness, joint swelling, pedal edema, tenderness - Back Exam Back exam: absent: CVA tenderness (L), CVA tenderness (R) - Neurological Exam Neurological exam: Alert, CN II-XII Intact, Oriented x3 - Psychiatric Exam Psychiatric exam: Normal Affect Results - Vital Signs Recent Vital Signs: Last Vital Signs Temp 97.6 F 08/13/16 15:33 Pulse 107 H 08/13/16 15:33 Resp 20 08/13/16 15:33 BP 126/61 08/13/16 15:33 Pulse Ox 98 08/13/16 15:33 - Labs Result Diagrams: 08/13/16 07:16 08/12/16 07:13 Labs: Laboratory Results - last 24 hr 08/12/16 08/12/16 08/13/16 12:09 21:03 01:55 WBC RBC Hgb Hct MCV MCH MCHC RDW Plt Count MPV Neut % (Auto) Lymph % (Auto) [place] % (Auto) Eos % (Auto) Baso % (Auto) Neut # Lymph # [place] # Eos # Baso # Neutrophils % (Manual) Band Neutrophils % Lymphocytes % (Manual) Monocytes % (Manual) Nucleated RBC % Platelet Estimate Polychromasia Hypochromasia (manual) Anisocytosis (manual) PT INR POC Glucose (mg/dL) 462 H* 461 H* Hemoglobin A1c Blood Type A POSITIVE Antibody Screen Negative 08/13/16 08/13/16 08/13/16 06:16 07:14 07:16 WBC 17.7 H RBC 3.31 L Hgb 8.9 L Hct 28.2 L MCV 85.1 D MCH 26.7 L MCHC 31.4 L RDW 18.1 H Plt Count 364 MPV 7.6 Neut % (Auto) 91.6 H Lymph % (Auto) 4.5 L [place] % (Auto) 3.8 Eos % (Auto) 0.0 Baso % (Auto) 0.1 Neut # 16.2 H Lymph # 0.8 L [place] # 0.7 Eos # 0.0 Baso # 0.0 Neutrophils % (Manual) 91 H Band Neutrophils % 2 Lymphocytes % (Manual) 6 L Monocytes % (Manual) 1 Nucleated RBC % 1 H Platelet Estimate Normal Polychromasia Slight Hypochromasia (manual) Slight Anisocytosis (manual) Slight PT 52.1 H* D INR 4.4 POC Glucose (mg/dL) 374 H Hemoglobin A1c Blood Type Antibody Screen 08/13/16 08/13/16 08/13/16 10:15 11:12 16:27 WBC RBC Hgb Hct MCV MCH MCHC RDW Plt Count MPV Neut % (Auto) Lymph % (Auto) [place] % (Auto) Eos % (Auto) Baso % (Auto) Neut # Lymph # [place] # Eos # Baso # Neutrophils % (Manual) Band Neutrophils % Lymphocytes % (Manual) Monocytes % (Manual) Nucleated RBC % Platelet Estimate Polychromasia Hypochromasia (manual) Anisocytosis (manual) PT INR POC Glucose (mg/dL) 407 H* 338 H Hemoglobin A1c 7.1 H Blood Type Antibody Screen Assessment & Plan (1) CAD (coronary artery disease) Status: Acute (2) CKD (chronic kidney disease) Status: Acute (3) COPD exacerbation Status: Acute (4) Diabetes Status: Acute (5) Hypertension Status: Acute (6) Lung cancer Status: Acute (7) Pulmonary embolism Status: Acute (8) Respiratory failure with hypoxia Status: Acute - Assessment and Plan (Free Text) Assessment: 70 YO FEMALE WITH A HX MULT MED PROBS. , ADM WITH ACUTE ON CRONIC RESP FAILURE, COPD EXAC., CHF, HX PE., CONT STEROID TAPER TOLERATED., CONT NEB BD., MONITOR O2 SAT., CXR REVIEWED., COUMADIN TOXICITY, MONITOR INR., GI/ DVT PROPHYLAXIS. PROG GUARDED., DISCUSSED WITH STAFF.
--- NOTE | 2016-08-13 20:43 | PN ---
DATE: 08/13/2016 Today the patient is alert and awake, has had having less shortness of breath but still complaining o f congestive cough and generalized weakness. PHYSICAL EXAMINATION: VITAL SIGNS: The patient has a blood pressure of 126/61, pulse is 107, respirations 20, temperature 97.6. NECK: Supple, no JVD. LUNGS: There are some rales ____ and also some wheezing noted. HEART: Regular rate and rhythm, but tachycardic. ABDOMEN: Soft. Mild epigastric tenderness. EXTREMITIES: There is no edema. LABORATORY DATA: The patient has blood tests done. WBC today is 17.7, hemoglobin 8.9, hematocrit 2 8.2 and platelet is ____. Chemistry: ____467 the sugar. The blood culture show gram-positive cocci in clusters. PLAN: We are going to decrease the Solu-Medrol. Also going to continue his aztreonam, the antibioti c, but also we are going to add doxycycline 100 mg p.o. twice a day. We have also an ID consult with Dr. Mullen. So the case was discussed with Laine MINAYA, the nurse practitioner. Isak Mark MD cc: [id number] TT: 08/13/2016 20:43:09 Confirmation # [id number] Dictation # [id number] nicola
[2016-08-13] MEDS ORDERED: MethylPREDNISolone 40 mg Vial IVP SCH (22:00)
[2016-08-13 22:29] LABS: RBC URINE 1 /hpf (0-3); URINE BACTERIA RARE (<OCC); URINE BILIRUBIN NEGATIVE (NEGATIVE); URINE BLOOD NEGATIVE (NEGATIVE); URINE COLOR Yellow (YELLOW); URINE GLUCOSE (UA) 3+ mg/dL (Normal); URINE KETONE NEGATIVE (NEGATIVE); URINE LEUKOCYTE ESTERASE NEG Leu/uL (Negative); URINE PROTEIN 2+ mg/dL (NEGATIVE); URINE UROBILINOGEN NORMAL mg/dL (0.2-1.0); WBC URINE 2 /hpf (0-5)
[2016-08-14] MEDS: Nitroglycerin 2% Ointment Foilpak UD TOP SCH ×4 (00:10→17:26)
[2016-08-14] MEDS: Albuterol 0.083% Inhal Sol (2.5 mg/3 mL) UD INH SCH ×4 (01:05→19:30)
[2016-08-14] MEDS ORDERED: (Novolog) Insulin Aspart, Recombinant 100 u/ml 10 ml vial SC STA (07:23)
[2016-08-14] MEDS ORDERED: (Novolog Mix 70/30) Insulin Aspart/Insulin Aspar 100 units/ml SC SCH (07:30)
[2016-08-14] MEDS: (Novolog) Insulin Aspart, Recombinant 100 u/ml 10 ml vial SC SCH ×4 (07:36→21:35)
[2016-08-14] MEDS: (Novolog Mix 70/30) Insulin Aspart/Insulin Aspar 100 units/ml SC SCH ×2 (07:45→17:26)
[2016-08-14 08:13] LABS: INR 3.9
[2016-08-14 08:15] LABS: BASO % 0.1 % (0.0-2.0); HEMATOCRIT 26.1 % (34.0-47.0); LYMPH # 0.5 K/uL (1.0-4.3); LYMPH % 3.5 % (20.0-40.0); MEAN CELL VOLUME 86.9 fL (81.0-99.0); MEAN CORPUSCULAR HEMOGLOBIN 26.9 pg (27.0-31.0); MEAN PLATELET VOLUME 7.7 fL (7.2-11.7); MONO # 0.6 K/uL (0.0-0.8); MONO % 3.9 % (0.0-10.0); NRBC % 0.1 % (0.0-2.0); PLATELET COUNT 342 K/uL (130-400); RED CELL DISTRIBUTION WIDTH 18.3 % (11.5-14.5); WHITE BLOOD COUNT 14.3 K/uL (4.8-10.8)
[2016-08-14] MEDS: GlipiZIDE 10 mg SR Tab PO SCH ×2 (09:26→17:26)
[2016-08-14] MEDS: Pantoprazole 40 mg EC Tab PO SCH (09:26)
[2016-08-14 09:51] LABS: NEUTROPHIL 88 % (50-75); TOTAL CELLS COUNTED 100
--- NOTE | 2016-08-14 14:21 | PN ---
DATE: 08/14/2016 SUBJECTIVE: The patient is experiencing shortness of breath and productive cough of brownish sputum, no hemoptysis. PHYSICAL EXAMINATION: VITAL SIGNS: Blood pressure 156/86, heart rate 89, temperature 98.2, respirations 20. HEENT: Pale conjunctivae. CHEST: Right basal rhonchi. HEART: S1, S2 regular. ABDOMEN: Soft. EXTREMITIES: No edema. LABORATORIES: Hemoglobin and hematocrit 8.1 and 26.1. White count and platelet count are 14.3 and 3 42. Today's blood sugars are 421 and 282. Today's INR is 3.9. ASSESSMENT: 1. Recurrent right lung squamous cell carcinoma. 2. Hypertension. 3. Chronic renal insufficiency. 4. Uncontrolled diabetes mellitus. 5. Consider underlying pneumonia. RECOMMENDATIONS: Continue current IV vancomycin at 1 gram daily, IV Rocephin at 1 gram daily, Cresto r 5 mg at bedtime, digoxin 0.125 mg daily, Lopressor 50 mg twice a day, start Robitussin 1 teaspoonfu l t.i.d. Discontinue telemetry. Parrish Bailey MD cc: [id number] TT: 08/14/2016 14:21:04 Confirmation # [id number] Dictation # [id number] rach
[2016-08-14] MEDS: guaiFENesin DM 200 mg-20 mg/10 ml UD PO PRN (15:30)
--- NOTE | 2016-08-14 15:48 | CP.PCM.PN ---
Subjective - Date & Time of Evaluation Date of Evaluation: 08/14/16 Time of Evaluation: 15:43 - Subjective Subjective: PT ALERT, STILL COUGH AND ANT CP. ROS; OTHERWISE NEG. Objective - Vital Signs/Intake and Output Vital Signs (last 24 hours): Temp Pulse Resp BP Pulse Ox 98.2 F 89 20 156/86 H 99 08/14/16 07:10 08/14/16 07:10 08/14/16 07:10 08/14/16 07:10 08/14/16 07:10 - Medications Medications: Current Medications Acetaminophen (Tylenol 325mg Tab) 650 mg PO ONCE ONE Stop: 08/14/16 18:01 Albuterol Sulfate (Albuterol 0.083% Inhal Elisabet (2.5 Mg/3 Ml) Ud) 2.5 mg INH RQ6 [facility] Last Admin: 08/14/16 13:34 Dose: 2.5 mg Digoxin (Lanoxin) 0.125 mg PO DAILY@1800 [facility] Last Admin: 08/13/16 18:29 Dose: 0.125 mg Glipizide (Glucotrol Xl) 10 mg PO BID [facility] Last Admin: 08/14/16 09:26 Dose: 10 mg Guaifenesin (Robitussin) 100 mg PO TID [facility] Guaifenesin/Dextromethorphan (Robitussin Dm) 10 ml PO Q4H PRN PRN Reason: Cough and congestion Last Admin: 08/14/16 15:30 Dose: 10 ml Ceftriaxone Sodium 1 gm/ (Sodium Chloride) 100 mls @ 100 mls/hr IVPB DAILY [facility] Last Admin: 08/14/16 09:31 Dose: 100 mls/hr Vancomycin HCl 1 gm/ Sodium (Chloride) 250 mls @ 166.7 mls/hr IVPB Q24H [facility] Last Admin: 08/13/16 22:17 Dose: 166.7 mls/hr Insulin Aspart (Novolog) 0 unit SC ACHS [facility] PRN Reason: Protocol Last Admin: 08/14/16 11:45 Dose: 4 unit Insulin Aspart (Novolog Mix 70/30 (70/30 Units/Ml)) 40 units SC ACBD [facility] Last Admin: 08/14/16 07:45 Dose: 40 units Metoprolol Tartrate (Lopressor) 50 mg PO BID [facility] Last Admin: 08/14/16 09:26 Dose: 50 mg Montelukast Sodium (Singulair) 10 mg PO HS [facility] Last Admin: 08/13/16 22:15 Dose: 10 mg Nitroglycerin (Nitro-Bid 2% Oint) 0.5 ea TOP Q6H [facility] Last Admin: 08/14/16 12:06 Dose: 0.5 ea Pantoprazole Sodium (Protonix Ec Tab) 40 mg PO DAILY [facility] Last Admin: 08/14/16 09:26 Dose: 40 mg Pneumococcal Polyvalent Vaccine (Pneumovax 23 Vaccine) 0.5 ml IM .ONCE ONE Stop: 08/14/16 22:04 Rosuvastatin Calcium (Crestor) 5 mg PO HS [facility] Last Admin: 08/13/16 22:15 Dose: 5 mg - Labs Labs: 08/14/16 08:05 PT 46.5 SECONDS (9.7-12.2) H* D 08/14/16 08:05 INR 3.9 08/14/16 08:05 - Constitutional Appears: No Acute Distress - Head Exam Head Exam: ATRAUMATIC, NORMOCEPHALIC - Eye Exam Eye Exam: EOMI, Normal appearance. absent: Scleral icterus - ENT Exam ENT Exam: Mucous Membranes Moist - Neck Exam Neck Exam: Normal Inspection. absent: Tenderness - Respiratory Exam Respiratory Exam: Decreased Breath Sounds, Rhonchi. absent: Accessory Muscle Use - Cardiovascular Exam Cardiovascular Exam: RRR, +S1, +S2 - GI/Abdominal Exam GI & Abdominal Exam: Soft. absent: Tenderness - Rectal Exam Rectal Exam: Deferred - Extremities Exam Extremities Exam: absent: Calf Tenderness, Pedal Edema - Back Exam Back Exam: absent: CVA tenderness (L), CVA tenderness (R) - Neurological Exam Neurological Exam: Alert, Awake, CN II-XII Intact, Oriented x3 - Psychiatric Exam Psychiatric exam: Normal Affect - Skin Skin Exam: absent: Rash Assessment and Plan (1) CAD (coronary artery disease) Status: Acute (2) CKD (chronic kidney disease) Status: Acute (3) COPD exacerbation Status: Acute (4) Diabetes Status: Acute (5) Hypertension Status: Acute (6) Lung cancer Status: Acute (7) Pulmonary embolism Status: Acute (8) Respiratory failure with hypoxia Status: Acute - Assessment and Plan (Free Text) Assessment: RESP STATUS NO SIG CHANGE., AFEBRILE ON AB. CONT NEB BD., STEROID TAPER TOLERATED. MONITOR O2 SAT. CXR REVIEWED., CT CHEST FOR BETTER EVAL, FOR ONC EVAL. MONITOR COAGS., PROG POOR. DISCUSSED WITH STAFF.
[2016-08-14] MEDS: guaiFENesin 100 mg/5 ml Syrup UD PO SCH (17:00)
[2016-08-14] MEDS: Digoxin 125 mcg (0.125 mg) Tab PO SCH (17:27)
--- NOTE | 2016-08-14 17:58 | CP.PCM.CON ---
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 Patient was recently released from the group home, but has been unable to be at home for any length of time, enough to get chemotherapy. She has been off all treatment for several weeks. Plan- Agree with PRBC transfusion, will restage cancer with CATscans including upper abdomen Past Patient History - Infectious Disease Hx of Infectious Diseases: None - Tetanus Immunizations Tetanus Immunization: Unknown - Past Medical History & Family History Past Medical History?: Yes Past Family History: Reviewed and not pertinent - Past Social History Smoking Status: Former Smoker Chewing Tobacco Use: No Cigar Use: No Alcohol: None - CARDIAC Hx Hypercholesterolemia: Yes Hx Hypertension: Yes - PULMONARY Hx Chronic Obstructive Pulmonary Disease (COPD): Yes - NEUROLOGICAL Hx Neurological Disorder: No Hx Paralysis: No - HEENT Hx HEENT Problems: Yes Hx Epistaxis: Yes Other/Comment: eye glasses for reading - RENAL Hx Chronic Kidney Disease: Yes Hx Kidney Stones: Yes (CYSTO/STENT 2009) - ENDOCRINE/METABOLIC Hx Diabetes Mellitus Type 2: Yes - HEMATOLOGICAL/ONCOLOGICAL Hx Anemia: Yes Hx Cancer: Yes Hx Chemotherapy: Yes Hx Metastesis: Yes - INTEGUMENTARY Hx Dermatological Problems: No - MUSCULOSKELETAL/RHEUMATOLOGICAL Hx Arthritis: Yes - GASTROINTESTINAL Hx Gastrointestinal Disorders: Yes Hx Constipation: Yes - GENITOURINARY/GYNECOLOGICAL Hx Genitourinary Disorders: Yes - PSYCHIATRIC Hx Psychophysiologic Disorder: No Hx Substance Use: No - SURGICAL HISTORY Hx Coronary Stent: Yes (2004) Hx Pulmonary Surgery: Yes - ANESTHESIA Hx Anesthesia: Yes Hx Anesthesia Reactions: No Hx Malignant Hyperthermia: No Meds Allergies/Adverse Reactions: Allergies Allergy/AdvReac Type Severity Reaction Status Date / Time No Known Allergies Allergy Verified 08/11/16 14:42 - Medications Medications: Current Medications Acetaminophen (Tylenol 325mg Tab) 650 mg PO ONCE ONE Stop: 08/14/16 18:01 Albuterol Sulfate (Albuterol 0.083% Inhal Elisabet (2.5 Mg/3 Ml) Ud) 2.5 mg INH RQ6 [facility] Last Admin: 08/14/16 13:34 Dose: 2.5 mg Digoxin (Lanoxin) 0.125 mg PO DAILY@1800 [facility] Last Admin: 08/14/16 17:27 Dose: 0.125 mg Glipizide (Glucotrol Xl) 10 mg PO BID [facility] Last Admin: 08/14/16 17:26 Dose: 10 mg Guaifenesin (Robitussin) 100 mg PO TID [facility] Last Admin: 08/14/16 17:00 Dose: Not Given Guaifenesin/Dextromethorphan (Robitussin Dm) 10 ml PO Q4H PRN PRN Reason: Cough and congestion Last Admin: 08/14/16 15:30 Dose: 10 ml Ceftriaxone Sodium 1 gm/ (Sodium Chloride) 100 mls @ 100 mls/hr IVPB DAILY [facility] Last Admin: 08/14/16 09:31 Dose: 100 mls/hr Vancomycin HCl 1 gm/ Sodium (Chloride) 250 mls @ 166.7 mls/hr IVPB Q24H [facility] Last Admin: 08/13/16 22:17 Dose: 166.7 mls/hr Insulin Aspart (Novolog) 0 unit SC ACHS [facility] PRN Reason: Protocol Last Admin: 08/14/16 17:26 Dose: 4 unit Insulin Aspart (Novolog Mix 70/30 (70/30 Units/Ml)) 40 units SC ACBD [facility] Last Admin: 08/14/16 17:26 Dose: 40 units Metoprolol Tartrate (Lopressor) 50 mg PO BID [facility] Last Admin: 08/14/16 17:26 Dose: 50 mg Montelukast Sodium (Singulair) 10 mg PO HS [facility] Last Admin: 08/13/16 22:15 Dose: 10 mg Nitroglycerin (Nitro-Bid 2% Oint) 0.5 ea TOP Q6H [facility] Last Admin: 08/14/16 17:26 Dose: 0.5 ea Pantoprazole Sodium (Protonix Ec Tab) 40 mg PO DAILY [facility] Last Admin: 08/14/16 09:26 Dose: 40 mg Pneumococcal Polyvalent Vaccine (Pneumovax 23 Vaccine) 0.5 ml IM .ONCE ONE Stop: 08/14/16 22:04 Rosuvastatin Calcium (Crestor) 5 mg PO HS [facility] Last Admin: 08/13/16 22:15 Dose: 5 mg Tramadol HCl (Ultram) 25 mg PO TID PRN PRN Reason: Pain, Mild (1-3) Results - Vital Signs Recent Vital Signs: Last Vital Signs Temp 988.1 F H 08/14/16 16:12 Pulse 83 06/02/17 16:12 Resp 18 08/14/16 16:12 BP 158/85 H 08/14/16 16:12 Pulse Ox 100 08/14/16 16:12 - Labs Result Diagrams: 08/14/16 08:05 08/12/16 07:13 Labs: Laboratory Results - last 24 hr 08/13/16 08/13/16 08/14/16 21:44 22:12 06:09 WBC RBC Hgb Hct MCV MCH MCHC RDW Plt Count MPV Neut % (Auto) Lymph % (Auto) [place] % (Auto) Eos % (Auto) Baso % (Auto) Neut # Lymph # [place] # Eos # Baso # Neutrophils % (Manual) Band Neutrophils % Lymphocytes % (Manual) Monocytes % (Manual) Platelet Estimate Hypochromasia (manual) Poikilocytosis (manual Anisocytosis (manual) Target Cells Tear Drop Cells [place] Cells PT INR POC Glucose (mg/dL) 238 H 421 H* Urine Color Yellow Urine Clarity Clear Urine pH 6.0 Ur Specific [place] 1.010 Urine Protein 2+ H Urine Glucose (UA) 3+ H Urine Ketones Negative Urine Blood Negative Urine Nitrate Negative Urine Bilirubin Negative Urine Urobilinogen Normal Ur Leukocyte Esterase Neg Urine WBC (Auto) 2 Urine RBC (Auto) 1 Ur Squamous Epith Cells 3 Urine Bacteria Rare Urine Yeast (Bud[place]) Occ H 08/14/16 08/14/16 08/14/16 08:05 08:05 11:14 WBC 14.3 H RBC 3.00 L Hgb 8.1 L Hct 26.1 L MCV 86.9 MCH 26.9 L MCHC 31.0 L RDW 18.3 H Plt Count 342 MPV 7.7 Neut % (Auto) 92.5 H Lymph % (Auto) 3.5 L [place] % (Auto) 3.9 Eos % (Auto) 0.0 Baso % (Auto) 0.1 Neut # 13.2 H Lymph # 0.5 L [place] # 0.6 Eos # 0.0 Baso # 0.0 Neutrophils % (Manual) 88 H Band Neutrophils % 2 Lymphocytes % (Manual) 6 L Monocytes % (Manual) 4 Platelet Estimate Normal Hypochromasia (manual) Slight Poikilocytosis (manual Slight Anisocytosis (manual) Slight Target Cells Slight Tear Drop Cells Slight [place] Cells Slight PT 46.5 H* D INR 3.9 POC Glucose (mg/dL) 282 H Urine Color Urine Clarity Urine pH Ur Specific [place] Urine Protein Urine Glucose (UA) Urine Ketones Urine Blood Urine Nitrate Urine Bilirubin Urine Urobilinogen Ur Leukocyte Esterase Urine WBC (Auto) Urine RBC (Auto) Ur Squamous Epith Cells Urine Bacteria Urine Yeast (Budding) 08/14/16 16:46 WBC RBC Hgb Hct MCV MCH MCHC RDW Plt Count MPV Neut % (Auto) Lymph % (Auto) [place] % (Auto) Eos % (Auto) Baso % (Auto) Neut # Lymph # [place] # Eos # Baso # Neutrophils % (Manual) Band Neutrophils % Lymphocytes % (Manual) Monocytes % (Manual) Platelet Estimate Hypochromasia (manual) Poikilocytosis (manual Anisocytosis (manual) Target Cells Tear Drop Cells [place] Cells PT INR POC Glucose (mg/dL) 281 H Urine Color Urine Clarity Urine pH Ur Specific [place] Urine Protein Urine Glucose (UA) Urine Ketones Urine Blood Urine Nitrate Urine Bilirubin Urine Urobilinogen Ur Leukocyte Esterase Urine WBC (Auto) Urine RBC (Auto) Ur Squamous Epith Cells Urine Bacteria Urine Yeast (Budding)
[2016-08-14] MEDS: Tramadol 25 mg PO PRN (19:00)
--- NOTE | 2016-08-14 19:18 | PN ---
DATE: 08/14/2016 Today patient is alert and awake, admitted having less shortness of breath, no chest pain, but is com plaining of some cough, however, the patient has not had shortness of breath on exertion. PHYSICAL EXAMINATION: VITAL SIGNS: The patient has a blood pressure of 158/85, pulse 83, respirations 18, temperature 98.1 . NECK: Supple. LUNGS: There are some rales bilaterally and rhonchi. HEART: Regular rate and rhythm. ABDOMEN: Soft, no palpable mass. EXTREMITIES: There is no edema. LABORATORY DATA: Showed that WBC is 14.3, hemoglobin 8.1, hematocrit 26.1, and platelet is 342. Riya christopher available, coag shows PT is 46.5 and INR 3.9 0.6. PLAN: We are going to continue the steroid and continue the cough medication. Pulmonary note is adi reciated. Also the oncology note of note is appreciated. Continue the patient on physical therapy. Isak Mark MD cc: [id number] TT: 08/14/2016 19:18:13 Confirmation # [id number] Dictation # [id number] rach
[2016-08-14] MEDS ORDERED: Pneumococcal 23-Valent Vaccine IM ONE (22:03)
[2016-08-15] MEDS: Nitroglycerin 2% Ointment Foilpak UD TOP SCH ×3 (00:20→12:38)
[2016-08-15] MEDS: Albuterol 0.083% Inhal Sol (2.5 mg/3 mL) UD INH SCH ×4 (02:12→20:48)
[2016-08-15 06:26] LABS: BASO # 0.1 K/uL (0.0-0.2); BASO % 0.4 % (0.0-2.0); EOS % 0.1 % (0.0-4.0); HEMATOCRIT 36.9 % (34.0-47.0); LYMPH % 6.2 % (20.0-40.0); MEAN CELL VOLUME 86.3 fL (81.0-99.0); MEAN CORPUSCULAR HEMOGLOBIN 26.8 pg (27.0-31.0); MONO # 1.3 K/uL (0.0-0.8); MONO % 8.5 % (0.0-10.0); NRBC % 0.6 % (0.0-2.0); PLATELET COUNT 424 K/uL (130-400); RED CELL DISTRIBUTION WIDTH 17.7 % (11.5-14.5); WHITE BLOOD COUNT 15.6 K/uL (4.8-10.8)
[2016-08-15 06:32] LABS: INR 2.9
[2016-08-15] MEDS ORDERED: Dextrose 50% SYRINGE Inj (50 ml) IV STA (06:51)
[2016-08-15 06:58] LABS: POTASSIUM 4.4 mmol/L (3.6-5.2)
[2016-08-15 07:02] LABS: CALCIUM 8.8 mg/dl (8.6-10.4)
[2016-08-15] MEDS: (Novolog) Insulin Aspart, Recombinant 100 u/ml 10 ml vial SC SCH ×4 (08:01→21:55)
[2016-08-15] MEDS: (Novolog Mix 70/30) Insulin Aspart/Insulin Aspar 100 units/ml SC SCH ×2 (08:02→16:56)
[2016-08-15] MEDS: Tramadol 25 mg PO PRN (08:31)
[2016-08-15 08:39] LABS: NEUTROPHIL 83 % (50-75); TOTAL CELLS COUNTED 100
--- NOTE | 2016-08-15 08:58 | CP.PCM.PN ---
Subjective - Date & Time of Evaluation Date of Evaluation: 08/15/16 Time of Evaluation: 08:56 - Subjective Subjective: PT ALERT, STILL RIGHT CP +COUGH., NO HEMOPTYSIS/ ROS ; OTHERWISE NEG Objective - Vital Signs/Intake and Output Vital Signs (last 24 hours): Temp Pulse Resp BP Pulse Ox 98.2 F 91 H 20 129/79 100 08/14/16 23:25 08/14/16 23:25 08/14/16 23:25 08/15/16 04:54 08/14/16 23:25 Intake and Output: 08/15/16 08/15/16 06:59 18:59 Intake Total 325 Balance 325 - Medications Medications: Current Medications Albuterol Sulfate (Albuterol 0.083% Inhal Elisabet (2.5 Mg/3 Ml) Ud) 2.5 mg INH RQ6 COUNTS [facility]CLUDE 234 BEDS AT THE [facility] Last Admin: 08/15/16 08:12 Dose: 2.5 mg Digoxin (Lanoxin) 0.125 mg PO DAILY@1800 [facility]S [facility]CLUDE 234 BEDS AT THE [facility] Last Admin: 08/14/16 17:27 Dose: 0.125 mg Glipizide (Glucotrol Xl) 10 mg PO BID COUNTS INCLUDE 234 BEDS AT THE [facility] Last Admin: 08/14/16 17:26 Dose: 10 mg Guaifenesin (Robitussin) 100 mg PO TID COUNTS INCLUDE 234 BEDS AT THE [facility] Last Admin: 08/14/16 17:00 Dose: Not Given Guaifenesin/Dextromethorphan (Robitussin Dm) 10 ml PO Q4H PRN PRN Reason: Cough and congestion Last Admin: 08/14/16 15:30 Dose: 10 ml Ceftriaxone Sodium 1 gm/ (Sodium Chloride) 100 mls @ 100 mls/hr IVPB DAILY COUNTS INCLUDE 234 BEDS AT THE [facility] Last Admin: 08/14/16 09:31 Dose: 100 mls/hr Vancomycin HCl 1 gm/ Sodium (Chloride) 250 mls @ 166.7 mls/hr IVPB Q24H COUNTS INCLUDE 234 BEDS AT THE [facility] Last Admin: 08/14/16 22:41 Dose: 166.7 mls/hr Insulin Aspart (Novolog) 0 unit SC ACHS COUNTS INCLUDE 234 BEDS AT THE [facility] PRN Reason: Protocol Last Admin: 08/15/16 08:01 Dose: Not Given Insulin Aspart (Novolog Mix 70/30 (70/30 Units/Ml)) 40 units SC ACBD COUNTS INCLUDE 234 BEDS AT THE [facility] Last Admin: 08/15/16 08:02 Dose: Not Given Metoprolol Tartrate (Lopressor) 50 mg PO BID COUNTS INCLUDE 234 BEDS AT THE [facility] Last Admin: 08/14/16 17:26 Dose: 50 mg Montelukast Sodium (Singulair) 10 mg PO HS COUNTS INCLUDE 234 BEDS AT THE [facility] Last Admin: 08/14/16 21:34 Dose: 10 mg Nitroglycerin (Nitro-Bid 2% Oint) 0.5 ea TOP Q6H COUNTS INCLUDE 234 BEDS AT THE [facility] Last Admin: 08/15/16 05:33 Dose: 0.5 ea Pantoprazole Sodium (Protonix Ec Tab) 40 mg PO DAILY COUNTS INCLUDE 234 BEDS AT THE [facility] Last Admin: 08/14/16 09:26 Dose: 40 mg Rosuvastatin Calcium (Crestor) 5 mg PO HS COUNTS INCLUDE 234 BEDS AT THE [facility] Last Admin: 08/14/16 21:34 Dose: 5 mg Tramadol HCl (Ultram) 25 mg PO TID PRN PRN Reason: Pain, Mild (1-3) Last Admin: 08/15/16 08:31 Dose: 25 mg - Labs Labs: 08/15/16 06:18 08/15/16 06:18 PT 34.2 SECONDS (9.7-12.2) H* D 08/15/16 06:18 INR 2.9 D 08/15/16 06:18 - Constitutional Appears: Chronically Ill - Head Exam Head Exam: ATRAUMATIC, NORMOCEPHALIC - Eye Exam Eye Exam: EOMI, Normal appearance - ENT Exam ENT Exam: Mucous Membranes Moist - Neck Exam Neck Exam: Normal Inspection. absent: Tenderness - Respiratory Exam Respiratory Exam: Decreased Breath Sounds, Rhonchi. absent: Accessory Muscle Use, Wheezes - Cardiovascular Exam Cardiovascular Exam: RRR, +S1, +S2 - GI/Abdominal Exam GI & Abdominal Exam: Soft. absent: Tenderness - Rectal Exam Rectal Exam: Deferred - Extremities Exam Extremities Exam: absent: Calf Tenderness - Back Exam Back Exam: absent: CVA tenderness (L), CVA tenderness (R) - Neurological Exam Neurological Exam: Alert, Awake, CN II-XII Intact, Oriented x3 - Psychiatric Exam Psychiatric exam: Normal Affect - Skin Skin Exam: absent: Rash Assessment and Plan (1) CAD (coronary artery disease) Status: Acute (2) CKD (chronic kidney disease) Status: Acute (3) COPD exacerbation Status: Acute (4) Diabetes Status: Acute (5) Hypertension Status: Acute (6) Lung cancer Status: Acute (7) Pulmonary embolism Status: Acute (8) Respiratory failure with hypoxia Status: Acute - Assessment and Plan (Free Text) Assessment: RESP STATUS NO SIG CHANGE., OFF STEROIDS, HIGH GLUCOSE NOTED., CONT NEB BD., PHENERGAN WITH CODEINE., MONITOR O2 SAT., CT PENDING., ONC EVAL NOTED. PROG POOR. DISCUSSED WITH STAFF.
[2016-08-15] MEDS: GlipiZIDE 10 mg SR Tab PO SCH ×2 (10:17→17:48)
[2016-08-15] MEDS: Pantoprazole 40 mg EC Tab PO SCH (10:18)
[2016-08-15] MEDS: guaiFENesin 100 mg/5 ml Syrup UD PO SCH ×2 (10:18→13:41)
[2016-08-15] MEDS: Oxycodone/Acetaminophen 5/325 mg Tab PO PRN (12:37)
[2016-08-15] MEDS ORDERED: Dextrose 50% SYRINGE Inj (50 ml) ONE (17:06)
[2016-08-15] MEDS: Promethazine/Cod 6.25mg-10mg/5ml Syr UD PO SCH (17:49)
[2016-08-15] MEDS: Digoxin 125 mcg (0.125 mg) Tab PO SCH (17:49)
--- NOTE | 2016-08-15 18:26 | PN ---
DATE: 08/15/2016 Today the patient is alert and awake and was complaining of a congestive cough, with chest pain durin g the coughing effort, and also still complaining of shortness of breath on exertion. PHYSICAL EXAMINATION: VITAL SIGNS: The patient has a blood pressure of 135/88, pulse is 116, respirations 18, temperature 98.3. HEAD: Normocephalic. NECK: Supple, no JVD. LUNGS: Has some rhonchi noted and has some rales at the bases. HEART: Tachycardic. ABDOMEN: Soft and nontender. No palpable mass. CHEST: She has some tenderness with pressure of the lower aspect of the chest wall. EXTREMITIES: There is no edema. LABORATORY DATA: Blood tests done shows WBC is 15.6, , hemoglobin 10.4, hematocrit 36.[address] atelet is 424. Chemistries: Sodium 138, potassium 4.4, chloride 103, bicarbonate 30, BUN 33, creati nine 1.5 and glucose is 53, now 102. PLAN: We are going to continue the Solu-Medrol and also going to add Phenergan with codeine or Robit ussin with codeine. CT of the chest and abdomen is pending. Isak Mark MD cc: [id number] TT: 08/15/2016 18:25:17 Confirmation # [id number] Dictation # [id number]
--- NOTE | 2016-08-15 18:28 | CT ---
PROCEDURE: CT Chest, abdomen performed note 08/15/2016. HISTORY: Lung cancer COMPARISON: Comparison made with prior CT scan chest 06/11/2016. . TECHNIQUE: Contiguous helical/transaxial sections of the chest and abdomen performed without oral or intravenous contrast material. Note the pelvis was not imaged on this examination. Radiation dose: Total exam DLP = 422.81 mGy-cm. This CT exam was performed using one or more of the following dose reduction techniques: Automated exposure control, adjustment of the mA and/or kV according to patient size, and/or use of iterative reconstruction technique. FINDINGS: CT CHEST WITHOUT CONTRAST: LUNGS: Re- demonstrated is a large elliptical shaped masslike lesion in the posterior aspect right upper lobe well likely representing patient's known lung carcinoma. Smaller elliptical shaped mass lesion located in the left upper lobe just anterior and superior to the larger mass is again seen measuring approximately 2.2 cm in greatest dimension and this has increased in size. Small cavitation adjacent to the mass and the smaller satellite lesion again noted as well. This measures approximately 2.2 cm and also has increased in size. . Centrilobular emphysematous changes with reticular and nodular scarring. MEDIASTINUM: There appears to be a few small metallic clips in the right hilar region. Multiple on small to medium sized mediastinal lymph nodes are present. The trachea is midline. LYMPH NODES: As above PLEURA: Bibasilar atelectasis and/or pleural thickening both posterior sulci. Small cavitations are also present within the lung bases. BONES: The osseous structures appear grossly intact. Mild multilevel degenerative spondylosis of the thoracic and upper lumbar spine. OTHER FINDINGS: None. CT ABDOMEN AND PELVIS: LIVER: Liver is incompletely visualized in its inferior margin. Again noted is a small low-attenuation lesion upper aspect left lobe liver. Second low-attenuation lesion seen on prior study not visible on this exam GALLBLADDER AND BILE DUCTS: Gallbladder is incompletely visualized. No evidence of intraluminal gallbladder calculi. PANCREAS: Pancreas is incompletely visualized SPLEEN: Spleen exhibits normal size ADRENALS: No adrenal lesions. KIDNEYS AND URETERS: The kidneys have not been completely imaged. Right kidney is atrophic with a thin ribbon of of cortex and central cystic change. 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 VASCULATURE: No evidence of abdominal aortic aneurysm involving the visualized upper abdominal aorta BOWEL: Evaluation of the bowel is limited due to incomplete visualization. Stomach is distended with food debris liquid and air. Proximal small bowel loops appear grossly unremarkable. APPENDIX: Not visualized PERITONEUM: No gross free intraperitoneal air or fluid seen in the upper abdomen LYMPH NODES: There appear to be a upper of retroperitoneal lymph nodes. BLADDER: Not visualized. REPRODUCTIVE: Not visualized BONES: No acute fracture. OTHER FINDINGS: None. IMPRESSION: Large mass lesion right upper lobe on again noted. Slight increased size of presume satellite lesion right upper lobe. Small cavitation of upper lobe is also decreased in size. Bibasilar atelectasis/scarring and pleural thickening. Low-attenuation lesion again seen within the dome of the liver. 2nd low-attenuation lesion within of liver seen on prior study is not appreciated on this exam See above discussion for additional findings and details.
[2016-08-16] MEDS: Promethazine/Cod 6.25mg-10mg/5ml Syr UD PO SCH ×3 (00:48→12:55)
[2016-08-16] MEDS: Albuterol 0.083% Inhal Sol (2.5 mg/3 mL) UD INH SCH ×4 (01:15→19:31)
[2016-08-16] MEDS: Oxycodone/Acetaminophen 5/325 mg Tab PO PRN (05:31)
[2016-08-16] MEDS ORDERED: Dextrose 50% SYRINGE Inj (50 ml) IV STA (06:48)
[2016-08-16] MEDS: (Novolog) Insulin Aspart, Recombinant 100 u/ml 10 ml vial SC SCH ×4 (07:52→22:23)
[2016-08-16] MEDS: (Novolog Mix 70/30) Insulin Aspart/Insulin Aspar 100 units/ml SC SCH (07:52)
[2016-08-16] MEDS: GlipiZIDE 10 mg SR Tab PO SCH ×2 (09:30→18:45)
[2016-08-16] MEDS: Pantoprazole 40 mg EC Tab PO SCH (09:49)
[2016-08-16] MEDS: Tramadol 25 mg PO PRN (09:49)
--- NOTE | 2016-08-16 10:28 | CP.PCM.PN ---
Subjective - Date & Time of Evaluation Date of Evaluation: 08/16/16 Time of Evaluation: 10:24 - Subjective Subjective: PT ALERT, +COUGH +BROWN-GREEN SPUTUM., NO CHANGE RIGHT CP., AMBULATES TO BATHROOM., ROS: OTHERWISE NEG. Objective - Vital Signs/Intake and Output Vital Signs (last 24 hours): Temp Pulse Resp BP Pulse Ox 98.2 F 107 H 20 119/74 100 08/16/16 08:17 08/16/16 08:17 08/16/16 08:17 08/16/16 08:17 08/16/16 08:17 Intake and Output: 08/16/16 08/16/16 06:59 18:59 Intake Total 440 Output Total 1 Balance 439 - Medications Medications: Current Medications Albuterol Sulfate (Albuterol 0.083% Inhal Elisabet (2.5 Mg/3 Ml) Ud) 2.5 mg INH RQ6 [facility] Last Admin: 08/16/16 08:29 Dose: 2.5 mg Digoxin (Lanoxin) 0.125 mg PO DAILY@1800 [facility] Last Admin: 08/15/16 17:49 Dose: 0.125 mg Glipizide (Glucotrol Xl) 10 mg PO BID [facility] Last Admin: 08/16/16 09:30 Dose: Not Given Ceftriaxone Sodium 1 gm/ (Sodium Chloride) 100 mls @ 100 mls/hr IVPB DAILY [facility] Last Admin: 08/16/16 09:50 Dose: 100 mls/hr Vancomycin HCl 1 gm/ Sodium (Chloride) 250 mls @ 166.7 mls/hr IVPB Q24H [facility] Last Admin: 08/15/16 21:07 Dose: 166.7 mls/hr Insulin Aspart (Novolog) 0 unit SC ACHS [facility] PRN Reason: Protocol Last Admin: 08/16/16 07:52 Dose: Not Given Insulin Aspart (Novolog Mix 70/30 (70/30 Units/Ml)) 40 units SC ACBD [facility] Last Admin: 08/16/16 07:52 Dose: Not Given Metoprolol Tartrate (Lopressor) 50 mg PO BID [facility] Last Admin: 08/16/16 09:50 Dose: 50 mg Montelukast Sodium (Singulair) 10 mg PO HS [facility] Last Admin: 08/15/16 21:06 Dose: 10 mg Oxycodone/Acetaminophen (Percocet 5/325 Mg Tab) 1 tab PO Q6H PRN PRN Reason: Pain, severe (8-10) Stop: 08/18/16 11:29 Last Admin: 08/16/16 05:31 Dose: 1 tab Pantoprazole Sodium (Protonix Ec Tab) 40 mg PO DAILY [facility] Last Admin: 08/16/16 09:49 Dose: 40 mg Promethazine HCl/Codeine (Phenergan/Codeine Oral Syrup) 5 ml PO Q6 [facility] Last Admin: 08/16/16 05:27 Dose: 5 ml Rosuvastatin Calcium (Crestor) 5 mg PO HS [facility] Last Admin: 08/15/16 21:06 Dose: 5 mg Tramadol HCl (Ultram) 25 mg PO TID PRN PRN Reason: Pain, Mild (1-3) Last Admin: 08/16/16 09:49 Dose: 25 mg - Labs Labs: 08/15/16 06:18 08/15/16 06:18 PT 34.2 SECONDS (9.7-12.2) H* D 08/15/16 06:18 INR 2.9 D 08/15/16 06:18 - Constitutional Appears: Chronically Ill - Head Exam Head Exam: ATRAUMATIC, NORMOCEPHALIC - Eye Exam Eye Exam: EOMI, Normal appearance. absent: Scleral icterus - ENT Exam ENT Exam: Mucous Membranes Moist - Neck Exam Neck Exam: Normal Inspection. absent: Tenderness - Respiratory Exam Respiratory Exam: Decreased Breath Sounds, Prolonged Expiratory Phase, Rhonchi. absent: Accessory Muscle Use - Cardiovascular Exam Cardiovascular Exam: RRR, +S1, +S2 - GI/Abdominal Exam GI & Abdominal Exam: Soft. absent: Tenderness - Rectal Exam Rectal Exam: Deferred - Extremities Exam Extremities Exam: absent: Calf Tenderness, Pedal Edema - Back Exam Back Exam: absent: CVA tenderness (L), CVA tenderness (R) - Neurological Exam Neurological Exam: Alert, Awake, CN II-XII Intact, Oriented x3 - Psychiatric Exam Psychiatric exam: Normal Affect, Normal Mood - Skin Skin Exam: absent: Rash Assessment and Plan (1) CAD (coronary artery disease) Status: Acute (2) CKD (chronic kidney disease) Status: Acute (3) COPD exacerbation Status: Acute (4) Diabetes Status: Acute (5) Hypertension Status: Acute (6) Lung cancer Status: Acute (7) Pulmonary embolism Status: Acute (8) Respiratory failure with hypoxia Status: Acute - Assessment and Plan (Free Text) Assessment: RESP STATUS NO SIG CHANGE. MONITOR OFF STEROID , CONT NEB BD., ADVAIR, SINGULAIR., MONITOR O2 SAT ON 2L NOW., CXR REVIEWED., CT CHEST REVIEWED, DISEASE PROGRESSION NOTED., FOR ONC F/U. AFEBRILE ON AB., PROG POOR. DISCUSSED WITH STAFF.
--- NOTE | 2016-08-16 13:10 | PN ---
DATE: 08/16/2016 The patient is still experiencing productive cough. She denies any hemoptysis. She also feels weak and is experiencing right-sided chest pain. PHYSICAL EXAMINATION: VITAL SIGNS: Blood pressure 119/74, heart rate 107, temperature 98.2, respirations 20. HEENT: Pale conjunctivae. CHEST: Right basal bronchial breathing. HEART: S1, S2 regular. ABDOMEN: Soft. EXTREMITIES: No edema or calf tenderness. LABORATORIES: CBC yesterday: WBC 15.6, hemoglobin and hematocrit 11.4 and 36.9 , platelet count 424,000. Today's blood sugars are 81, 72, 66 and 220. The last one at 7 a.m. ASSESSMENT: 1. 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 2. History of pulmonary embolism recently. The repeat VQ scan revealed low probability for pulmonary embolism. 3. Hypertension. 4. Chronic renal insufficiency. 5. Bilateral pleural effusion with compression atelectasis. RECOMMENDATIONS: Continue current IV vancomycin at 1 gram daily. Continue IV Rocephin at 1 gram daily. Continue glipizide XL at 10 mg twice a day, digoxin 0.125 mg daily, Lopressor at 50 mg twice a day, Protonix 40 mg orally once a day, Singulair 10 mg at bedtime, Crestor at 5 mg once a day Albuterol inhaler and Robitussin syrup. Resume Coumadin therapy Parrish Bailey MD cc: [id number] TT: 08/16/2016 13:09:53 Confirmation # [id number] Dictation # [id number] en MTDD
[2016-08-16] MEDS: Digoxin 125 mcg (0.125 mg) Tab PO SCH (18:45)
--- NOTE | 2016-08-16 21:30 | CARD ---
APPROVED REPORT EKG Measurement Heart [id number] <Conclusion> Normal sinus rhythm Normal ECG
[2016-08-17] MEDS: Albuterol 0.083% Inhal Sol (2.5 mg/3 mL) UD INH SCH (01:40)
[2016-08-17 07:32] LABS: BASO % 0.1 % (0.0-2.0); EOS # 0.1 K/uL (0.0-0.7); EOS % 0.2 % (0.0-4.0); HEMATOCRIT 33.8 % (34.0-47.0); LYMPH # 1.2 K/uL (1.0-4.3); LYMPH % 4.9 % (20.0-40.0); MEAN CELL VOLUME 85.1 fL (81.0-99.0); MEAN CORPUSCULAR HGB CONC 31.7 g/dL (33.0-37.0); MEAN PLATELET VOLUME 7.3 fL (7.2-11.7); MONO # 1.1 K/uL (0.0-0.8); MONO % 4.3 % (0.0-10.0); NRBC % 0.1 % (0.0-2.0); PLATELET COUNT 382 K/uL (130-400); RED CELL DISTRIBUTION WIDTH 17.6 % (11.5-14.5)
[2016-08-17 07:33] LABS: POTASSIUM 3.9 mmol/L (3.6-5.2); WHITE BLOOD COUNT 24.4 K/uL (4.8-10.8)
[2016-08-17 07:35] LABS: ALB/GLOB RATIO 0.8 (1.0-2.1); BILIRUBIN,TOTAL 0.5 mg/dL (0.2-1.3); TOTAL PROTEIN 5.6 g/dL (6.3-8.3)
[2016-08-17 07:36] LABS: CALCIUM 8.4 mg/dl (8.6-10.4)
[2016-08-17] MEDS: (Novolog) Insulin Aspart, Recombinant 100 u/ml 10 ml vial SC SCH ×4 (08:23→21:26)
[2016-08-17 08:46] LABS: NEUTROPHIL 90 % (50-75); TOTAL CELLS COUNTED 100
[2016-08-17 08:47] LABS: LARGE PLATELETS PRESENT
--- NOTE | 2016-08-17 09:03 | PN ---
DATE: 08/16/2016 The patient is ____ cough and feels cold, denies any shortness of breath, no chest pain but ____ ches t pain during the coughing ____ and no abdomen. PHYSICAL EXAMINATION: VITAL SIGNS: The patient has a blood pressure of 119/74, pulse is today 107, respirations 20, temper ature is 98.2, this morning temperature was 99.5. NECK: Supple. LUNGS: There are some rales noted bilaterally and some rhonchi. HEART: Tachycardic. ABDOMEN: Soft, nontender, no palpable mass. EXTREMITIES: There is no edema. The patient had a CT of the chest and abdomen done yesterday which revealed large mass lesion right t emporal lobe and the slight increase of size of presumed satellite lesion right upper lobe and a smal l cavitation of upper lobe is also decreased in size and ____ atelectasis, there is scarring and pleu ral thickening and there is a low attenuation lesion again seen within the dome of the liver, a secon d low attenuation lesion within liver was seen on prior study is not appreciated on this exam. PLAN: We are going to continue the current medications and we are going to increase the cough medici ne, the Phenergan with codeine every 4 hours p.r.n. Isak Mark MD cc: [id number] TT: 08/16/2016 18:03:41 Confirmation # [id number] Dictation # [id number]
[2016-08-17] MEDS: Pantoprazole 40 mg EC Tab PO SCH (09:15)
[2016-08-17] MEDS: GlipiZIDE 10 mg SR Tab PO SCH ×2 (09:15→17:43)
--- NOTE | 2016-08-17 10:13 | CP.PCM.PN ---
Subjective - Date & Time of Evaluation Date of Evaluation: 08/17/16 Time of Evaluation: 10:10 - Subjective Subjective: PT ALERT, +PAIN WITH COUGH. +BROWN -GREEN SPUTUM., NO CHEST TIGHTNESS. EATING OK. ROS; OTHERWISE NEG. Objective - Vital Signs/Intake and Output Vital Signs (last 24 hours): Temp Pulse Resp BP Pulse Ox 99.1 F 106 H 18 115/73 100 08/17/16 07:27 08/17/16 07:27 08/17/16 07:27 08/17/16 07:27 08/17/16 07:27 - Medications Medications: Current Medications Digoxin (Lanoxin) 0.125 mg PO DAILY@1800 [facility] Last Admin: 08/16/16 18:45 Dose: 0.125 mg Glipizide (Glucotrol Xl) 10 mg PO BID [facility] Last Admin: 08/17/16 09:15 Dose: 10 mg Vancomycin HCl 1 gm/ Sodium (Chloride) 250 mls @ 166.7 mls/hr IVPB Q24H [facility] Last Admin: 08/16/16 21:03 Dose: 166.7 mls/hr Insulin Aspart (Novolog) 0 unit SC ACHS [facility] PRN Reason: Protocol Last Admin: 08/17/16 08:23 Dose: Not Given Metoprolol Tartrate (Lopressor) 50 mg PO BID [facility] Last Admin: 08/17/16 09:15 Dose: 50 mg Montelukast Sodium (Singulair) 10 mg PO [facility] Last Admin: 08/16/16 21:06 Dose: 10 mg Oxycodone/Acetaminophen (Percocet 5/325 Mg Tab) 1 tab PO Q6H PRN PRN Reason: Pain, severe (8-10) Stop: 08/18/16 11:29 Last Admin: 08/16/16 05:31 Dose: 1 tab Pantoprazole Sodium (Protonix Ec Tab) 40 mg PO DAILY [facility] Last Admin: 08/17/16 09:15 Dose: 40 mg Promethazine HCl/Codeine (Phenergan/Codeine Oral Syrup) 5 ml PO Q4 PRN PRN Reason: Cough Rosuvastatin Calcium (Crestor) 5 mg PO [facility] Last Admin: 08/16/16 21:06 Dose: 5 mg Tramadol HCl (Ultram) 25 mg PO TID PRN PRN Reason: Pain, Mild (1-3) Last Admin: 08/16/16 09:49 Dose: 25 mg - Labs Labs: 08/17/16 07:15 08/17/16 07:15 PT 34.2 SECONDS (9.7-12.2) H* D 08/15/16 06:18 INR 2.9 D 08/15/16 06:18 - Constitutional Appears: Chronically Ill - Head Exam Head Exam: ATRAUMATIC, NORMAL INSPECTION, NORMOCEPHALIC - Eye Exam Eye Exam: EOMI, Normal appearance. absent: Scleral icterus - ENT Exam ENT Exam: Mucous Membranes Moist - Neck Exam Neck Exam: Full ROM. absent: Tenderness - Respiratory Exam Respiratory Exam: Decreased Breath Sounds, Rhonchi. absent: Accessory Muscle Use - Cardiovascular Exam Cardiovascular Exam: RRR, +S1, +S2 - GI/Abdominal Exam GI & Abdominal Exam: Soft. absent: Tenderness - Rectal Exam Rectal Exam: Deferred - Extremities Exam Extremities Exam: absent: Calf Tenderness, Pedal Edema - Back Exam Back Exam: absent: CVA tenderness (L), CVA tenderness (R) - Neurological Exam Neurological Exam: Alert, Awake, CN II-XII Intact, Oriented x3 - Psychiatric Exam Psychiatric exam: Normal Affect - Skin Skin Exam: absent: Rash Assessment and Plan (1) CAD (coronary artery disease) Status: Acute (2) CKD (chronic kidney disease) Status: Acute (3) COPD exacerbation Status: Acute (4) Diabetes Status: Acute (5) Hypertension Status: Acute (6) Lung cancer Status: Acute (7) Pulmonary embolism Status: Acute (8) Respiratory failure with hypoxia Status: Acute - Assessment and Plan (Free Text) Assessment: RESP STATUS NO SIG CHANGE., LOW GRADE TEMPS ON IV AB. CONT NEB BD., PULM TOILET. , ADVAIR, SINGULAIR., ANTI-TUSSIVE TX., CXR REVIEWED. MONITOR O2 SAT., ONC W/U IN PROGRESS. MONITOR INR ON COUMADIN., PROG POOR. DISCUSSED WITH STAFF.
[2016-08-17] MEDS: Oxycodone/Acetaminophen 5/325 mg Tab PO PRN ×2 (11:27→21:22)
[2016-08-17] MEDS: Promethazine/Cod 6.25mg-10mg/5ml Syr UD PO PRN (11:29)
[2016-08-17] MEDS: Albuterol-Ipratrop 3 mg / 0.5 (3 ml) UD INH SCH ×2 (13:40→19:33)
--- NOTE | 2016-08-17 13:51 | PN ---
DATE: 08/17/2016 The patient denies retrosternal chest pain. She is experiencing shortness of breath and productive c ough. No reported hemoptysis. PHYSICAL EXAMINATION: VITAL SIGNS: Blood pressure 115/73, heart rate 106, temperature 99.1, respirations 18. HEENT: Pale conjunctivae. CHEST: Absent breath sounds over right base. HEART: S1, S2 regular. EXTREMITIES: No edema. LABORATORIES: Hemoglobin and hematocrit 10.7 and 33.2, white count and platelet count are 24.4 and 3 82,000. Today's BUN and creatinine are 24 and 1.6, glucose is , potassium is within normal limi ts, calcium is below normal at 8.4. ASSESSMENT: 1. 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 2. Pneumonia. 3. Chronic renal insufficiency. 4. History of pulmonary embolism in the recent past. 5. Chronic obstructive lung disease. RECOMMENDATIONS: Continue Crestor at 5 mg once a day, glipizide at 10 mg twice a day, digoxin 0.125 mg daily, Lopressor 50 mg twice a day, Percocet 1 tablet q. 6 hours, vancomycin 1 gram intravenously daily. I recommend resuming Coumadin therapy if INR is below 2.5. I will request [facility] to [facility]. Parrish Bailey MD cc: [id number] TT: 08/17/2016 13:51:06 Confirmation # [id number] Dictation # [id number]
[2016-08-17] MEDS: Digoxin 125 mcg (0.125 mg) Tab PO SCH (17:43)
[2016-08-17 22:09] LABS: INR 1.4
[2016-08-18] MEDS: Albuterol-Ipratrop 3 mg / 0.5 (3 ml) UD INH SCH ×4 (01:08→20:13)
[2016-08-18 07:35] LABS: INR 1.3
[2016-08-18] MEDS: (Novolog) Insulin Aspart, Recombinant 100 u/ml 10 ml vial SC SCH ×4 (08:22→22:35)
[2016-08-18] MEDS: Oxycodone/Acetaminophen 5/325 mg Tab PO PRN (08:39)
[2016-08-18] MEDS: GlipiZIDE 10 mg SR Tab PO SCH ×2 (09:28→18:15)
[2016-08-18] MEDS: Pantoprazole 40 mg EC Tab PO SCH (09:28)
[2016-08-18] MEDS: MethylPREDNISolone 40 mg Vial IV SCH ×2 (09:29→22:34)
--- NOTE | 2016-08-18 09:33 | PN ---
DATE: 08/17/2016 HISTORY OF PRESENT ILLNESS: Today, the patient is complaining of cough with some pain to the right s steffen of the chest wall and then the coughing is with some greenish sputum and also the patient c omplaining of shortness of breath on exertion. The patient admits being less short of breath. PHYSICAL EXAMINATION: VITAL SIGNS: The patient has blood pressure 140/74, pulse 96, respirations 20, temperature 98.3. T he head is normocephalic. NECK: Supple. LUNGS: There are some rales at the bases, some rhonchi noted. ABDOMEN: Soft HEART: Regular rate and rhythm, but sometime tachycardic EXTREMITIES: There is no edema. LABORATORY DATA: Show WBC 24.5, hemoglobin 10.7, hematocrit 32.8 and platelet 352. Her chemistry sh owed a sodium 134, , chloride 99, BUN 25, creatinine 1.6 and glucose 97. PLAN: We are going to continue the medications, but are going to decrease the Solu-Medrol to q . 12 hours and, also, the patient will be on Coumadin. . Isak Mark MD cc: [id number] TT: 08/18/2016 01:36:38 Confirmation # [id number] Dictation # [id number] 08/18/2016 08:32:49
--- NOTE | 2016-08-18 10:55 | CP.PCM.PN ---
Subjective - Date & Time of Evaluation Date of Evaluation: 08/18/16 Time of Evaluation: 10:53 - Subjective Subjective: PT ALERT, +COUGH, NO HEMOPTYSIS., LESS PAIN CHEST., LESS SOB., ROS ; OTHERWISE NEG Objective - Vital Signs/Intake and Output Vital Signs (last 24 hours): Temp Pulse Resp BP Pulse Ox 98.6 F 112 H 100 H 118/70 100 08/18/16 08:00 08/18/16 08:00 08/18/16 08:00 08/18/16 08:00 08/18/16 08:00 Intake and Output: 08/18/16 08/18/16 06:59 18:59 Intake Total 150 Balance 150 - Medications Medications: Current Medications Albuterol/Ipratropium (Duoneb 3 Mg/0.5 Mg (3 Ml) Ud) 3 ml INH RQ6 [facility] Last Admin: 08/18/16 07:49 Dose: Not Given Digoxin (Lanoxin) 0.125 mg PO DAILY@1800 [facility] Last Admin: 08/17/16 17:43 Dose: 0.125 mg Glipizide (Glucotrol Xl) 10 mg PO BID [facility] Last Admin: 08/18/16 09:28 Dose: 10 mg Vancomycin HCl 1 gm/ Sodium (Chloride) 250 mls @ 166.7 mls/hr IVPB Q24H [facility] Last Admin: 08/17/16 21:27 Dose: 166.7 mls/hr Insulin Aspart (Novolog) 0 unit SC ACHS [facility] PRN Reason: Protocol Last Admin: 08/18/16 08:22 Dose: Not Given Methylprednisolone (Solu-Medrol) 30 mg IV Q12 [facility] Last Admin: 08/18/16 09:29 Dose: 30 mg Metoprolol Tartrate (Lopressor) 50 mg PO BID [facility] Last Admin: 08/18/16 09:28 Dose: 50 mg Montelukast Sodium (Singulair) 10 mg PO HS [facility] Last Admin: 08/17/16 22:13 Dose: 10 mg Oxycodone/Acetaminophen (Percocet 5/325 Mg Tab) 1 tab PO Q6H PRN PRN Reason: Pain, severe (8-10) Stop: 08/18/16 11:29 Last Admin: 08/18/16 08:39 Dose: 1 tab Pantoprazole Sodium (Protonix Ec Tab) 40 mg PO DAILY [facility] Last Admin: 08/18/16 09:28 Dose: 40 mg Promethazine HCl/Codeine (Phenergan/Codeine Oral Syrup) 5 ml PO Q4 PRN PRN Reason: Cough Last Admin: 08/17/16 11:29 Dose: 5 ml Rosuvastatin Calcium (Crestor) 5 mg PO HS [facility] Last Admin: 08/17/16 21:22 Dose: 5 mg Tramadol HCl (Ultram) 25 mg PO TID PRN PRN Reason: Pain, Mild (1-3) Last Admin: 08/16/16 09:49 Dose: 25 mg Warfarin Sodium (Coumadin) 7.5 mg PO 1800 [facility] Stop: 08/18/16 18:01 Warfarin Sodium (Coumadin) 5 mg PO 1800 [facility] Stop: 08/18/16 18:01 - Labs Labs: 08/17/16 07:15 08/17/16 07:15 PT 14.6 SECONDS (9.7-12.2) H 08/18/16 07:17 INR 1.3 08/18/16 07:17 - Constitutional Appears: Chronically Ill - Head Exam Head Exam: ATRAUMATIC, NORMOCEPHALIC - Eye Exam Eye Exam: EOMI, Normal appearance. absent: Scleral icterus - ENT Exam ENT Exam: Mucous Membranes Moist - Neck Exam Neck Exam: Normal Inspection. absent: Tenderness - Respiratory Exam Respiratory Exam: Decreased Breath Sounds, Prolonged Expiratory Phase, Rhonchi. absent: Accessory Muscle Use - Cardiovascular Exam Cardiovascular Exam: RRR, +S1, +S2 - GI/Abdominal Exam GI & Abdominal Exam: Soft. absent: Tenderness - Rectal Exam Rectal Exam: Deferred - Extremities Exam Extremities Exam: absent: Calf Tenderness, Pedal Edema - Back Exam Back Exam: absent: CVA tenderness (L), CVA tenderness (R) - Neurological Exam Neurological Exam: Alert, Awake, CN II-XII Intact, Oriented x3 - Psychiatric Exam Psychiatric exam: Normal Affect - Skin Skin Exam: absent: Rash Assessment and Plan (1) CAD (coronary artery disease) Status: Acute (2) CKD (chronic kidney disease) Status: Acute (3) COPD exacerbation Status: Acute (4) Diabetes Status: Acute (5) Hypertension Status: Acute (6) Lung cancer Status: Acute (7) Pulmonary embolism Status: Acute (8) Respiratory failure with hypoxia Status: Acute - Assessment and Plan (Free Text) Assessment: RESP STATUS SLOW IMPROVEMENT., CONT NEB BD., ADVAIR, SINGULAIR,., AFEBRILE ON AB., MONITOR INR ON COUMADIN., CXR REVIEWED., ANALGESIA. PROG POOR. DISCUSSED WITH STAFF.
--- NOTE | 2016-08-18 12:19 | CP.PCM.CON ---
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 Patient was recently released from the group home, but has been unable to be at home for any length of time, enough to get chemotherapy. She has been off all treatment for several weeks. multiple positive blood will need echo, remove port cont iv rx Review of Systems - Constitutional Constitutional: As Per HPI - EENT Eyes: absent: As Per HPI, Blind Spots, Blurred Vision, Change in Vision, Decreased Night Vision, Diplopia, Discharge, Dry Eye, Exophthalmos, Floaters, Irritation, Itchy Eyes, Loss of Peripheral Vision, Pain, Photophobia, Requires Corrective Lenses, Sees Flashes, Spots in Vision, Tunnel Vision, Other Visual Disturbances, Loss of Vision, Other Ears: absent: As Per HPI, Decreased Hearing, Ear Discharge, Ear Pain, Tinnitus, Abnormal Hearing, Disequilibrium, Dizziness, Other Nose/Mouth/Throat: absent: As Per HPI, Epistaxis, Nasal Congestion, Nasal Discharge, Nasal Obstruction, Nasal Trauma, Nose Pain, Post Nasal Drip, Sinus Pain, Sinus Pressure, Bleeding Gums, Change in Voice, Dental Pain, Dry Mouth, Dysphagia, Halitosis, Hoarsness, Lip Swelling, Mouth Lesions, Mouth Pain, Odynophagia, Sore Throat, Throat Swelling, Tongue Swelling, Facial Pain, Neck Pain, Neck Mass, Other - Breasts Breasts: absent: As Per HPI, Change in Shape, Mass, Pain, Nipple Discharge, Nipple Inversion, Skin Changes, Swelling, Other - Cardiovascular Cardiovascular: absent: As Per HPI, Acrocyanosis, Chest Pain, Chest Pain at Rest , Chest Pain with Activity, Claudication, Diaphoresis, Dyspnea, Dyspnea on Exertion, Edema, Irregular Heart Rhythm, Pain Radiating to Arm/Neck/Jaw, Leg Edema, Leg Ulcers, Lightheadedness, Orthopnea, Palpitations, Paroxysmal Nocturnal Dyspnea, Pedal Edema, Radiating Pain, Rapid Heart Rate, Slow Heart Rate, Syncope, Other - Respiratory Respiratory: absent: As Per HPI, Cough, Dyspnea, Hemoptysis, Dyspnea on Exertion , Wheezing, Snoring, Stridor, Pain on Inspiration, Chest Congestion, Excessive Mucous Production, Change in Mucous Color, Pain with Coughing, Other - Gastrointestinal Gastrointestinal: absent: As Per HPI, Abdominal Pain, Belching, Bloating, Change in Bowel Habits, Change in Stool Character, Coffee Ground Emesis, Constipation, Cramping, Diarrhea, Dyspepsia, Dysphagia, Early Satiety, Excessive Flatus, Fecal Incontinence, Heartburn, Hematemesis, Hematochezia, Loose Stools, Melena, Nausea, Odynophagia, Temesmus, Vomiting, Other - Genitourinary Genitourinary: absent: As Per HPI, Change in Urinary Stream, Difficulty Urinating, Dysuria, Flank Pain, Hematuria, Pyuria, Nocturia, Urinary Incontinence, Urinary Frequency, Urinary Hesitance, Urinary Urgency, Voiding Freq/Small Amts, Freq UTI, Hx Renal/Bladder Calculi, Hx /Renal Surgery, Bladder Distension, Other - Reproductive: Female Reproductive:Female: absent: As Per HPI, Amenorrhea, Amenorrhea/ Control, Currently Menstual, Cycle <21 Days, Cycle >35 Days, Cycle Variable, Menses 1-7 Days, Menses >/= 8 Days, Menses Variable, Cycle > 4 Weeks Between, No Menses for 6 Months, Heavy Menses, Light Menses, Normal Menses, Spotting Between Cycles , S/P Hysterectomy, Menopausal, Post Menopausal, Premenarche, Abnormal Vaginal Bleeding, Dysmenorrhea, Dyspareunia, Genital Lesions, Genital Pruritis, Pelvic Pain, Prolapse Symptoms, Sexual Dysfunction, Vaginal Discharge, Vaginal Dryness , Vaginal Odor, Vaginal Pruritis, Other - Menstruation Menstruation: absent: As Per HPI, Amenorrhea, Amenorrhea/ Control, Currently Menstual, Cycle <21 Days, Cycle >35 Days, Cycle Variable, Menses 1-7 Days, Menses >/= 8 Days, Menses Variable, Cycle > 4 Weeks Between, No Menses for 6 Months, Heavy Menses, Light Menses, Normal Menses, Spotting Between Cycles , S/P Hysterectomy, Menopausal, Post Menopausal, Premenarche, Abnormal Vaginal Bleeding, Dysmenorrhea, Other - Musculoskeletal Musculoskeletal: absent: As Per HPI, Abnormal Gait, Arthralgias, Atrophy, Back Pain, Deformity, Joint Swelling, Limited Range of Motion, Loss of Height, Muscle Cramps, Muscle Weakness, Myalgias, Neck Pain, Numbness, Radiating Pain into Limb, Stiffness, Tingling, Other - Integumentary Integumentary: absent: As Per HPI, Acne, Alopecia, Bleeding Lesions, Change in Hair, Change in Nails, Change in Pigmentation, Changing Lesions, Dry Skin, Erythema, Furuncle, Hirsutism, Lesions, New Lesions, Non-Healing Lesions, Photosensitivity, Pruritus, Rash, Skin Pain, Skin Ulcer, Sores, Striae, Swelling , Unusual Bruising, Wounds, Jaundice, Other - Neurological Neurological: absent: As Per HPI, Abnormal Gait, Abnormal Hearing, Abnormal Movements, Abnormal Speech, Behavioral Changes, Burning Sensations, Confusion, Convulsions, Disequilibrium, Dizziness, Numbness, Focal Weakness, Frequent Falls , Headaches, Lack of Coordination, Loss of Vision, Memory Loss, Paresthesias, Radicular Pain, Restless Legs, Sensory Deficit, Syncope, Tingling, Tremor, Vertigo, Weakness, Other Visual Disturbances, Other - Psychiatric Psychiatric: absent: As Per HPI, Abnormal Sleep Pattern, Anhedonia, Anxiety, Auditory Hallucinations, Behavioral Changes, Change in Appetite, Change in Libido, Confusion, Depression, Difficulty Concentrating, Hallucinations, Homicidal Ideation, Hopelessness, Irritability, Memory Loss, Mood Swings, Panic Attacks, Paranoia, Suicidal Ideation, Visual Hallucinations, Tactile Hallucinations, Other - Endocrine Endocrine: absent: As Per HPI, Change in Body Appearance, Change in Libido, Cold Intolorance, Deepening of Voice, Excessive Sweating, Fatigue, Flushing, Heat Intolorance, Increase in Ring/Shoe/Hat Size, Palpitations, Polydipsia, Polyphagia, Polyuria, Other - Hematologic/Lymphatic Hematologic: absent: As Per HPI, Easy Bleeding, Easy Bruising, Lymphadenopathy, Other Past Patient History - Infectious Disease Hx of Infectious Diseases: None - Tetanus Immunizations Tetanus Immunization: Unknown - Past Medical History & Family History Past Medical History?: Yes Past Family History: Reviewed and not pertinent - Past Social History Smoking Status: Former Smoker Chewing Tobacco Use: No Cigar Use: No Alcohol: None - CARDIAC Hx Cardia Arrhythmia: Yes Hx Hypercholesterolemia: Yes Hx Hypertension: Yes Hx Pacemaker: No - PULMONARY Hx Respiratory Disorders: Yes Hx Asthma: Yes Hx Chronic Obstructive Pulmonary Disease (COPD): Yes Hx Lung Cancer: Yes Hx Pulmonary Embolism: Yes Hx Sleep Apnea: No - NEUROLOGICAL Hx Neurological Disorder: No Hx Paralysis: No - HEENT Hx HEENT Problems: Yes Hx Epistaxis: Yes Other/Comment: eye glasses for reading - RENAL Hx Chronic Kidney Disease: Yes Hx Kidney Stones: Yes (CYSTO/STENT 2009) - ENDOCRINE/METABOLIC Hx Endocrine Disorders: Yes Hx Diabetes Mellitus Type 2: Yes - HEMATOLOGICAL/ONCOLOGICAL Hx Anemia: Yes Hx Cancer: Yes Hx Chemotherapy: Yes Hx Metastesis: Yes - INTEGUMENTARY Hx Dermatological Problems: No - MUSCULOSKELETAL/RHEUMATOLOGICAL Hx Arthritis: Yes Hx Gout: Yes - GASTROINTESTINAL Hx Gastrointestinal Disorders: Yes Hx Constipation: Yes - GENITOURINARY/GYNECOLOGICAL Hx Genitourinary Disorders: Yes - PSYCHIATRIC Hx Psychophysiologic Disorder: No Hx Substance Use: No - SURGICAL HISTORY Hx Coronary Stent: Yes (2004) Hx Pulmonary Surgery: Yes - ANESTHESIA Hx Anesthesia: Yes Hx Anesthesia Reactions: No Hx Malignant Hyperthermia: No Meds Home Medications: Home Medication List Medication Instructions Recorded Confirmed Type Albuterol 0.083% [Albuterol 0.083% 2.5 mg INH RQ6 #50 08/20/16 Rx Inhal Elisabet (2.5 mg/3 ml) UD] Amoxicillin/Clavulanate [Augmentin 1 tab PO 12 #20 tab 08/20/16 Rx 875 MG-125 MG] Digoxin [Lanoxin] 0.125 mg PO DAILY@1800 #30 tab 08/20/16 Rx Fluticasone/Salmeterol 250/50 1 puff INH RQ12 #2 puff 08/20/16 Rx [Advair Diskus 250/50] GlipiZIDE SR [Glucotrol XL] 10 mg PO BID #60 tab 08/20/16 Rx Metoprolol Tartrate [Lopressor] 50 mg PO BID #60 tab 08/20/16 Rx Montelukast [Singulair] 10 mg PO HS #30 tab 08/20/16 Rx Pantoprazole [Protonix EC Tab] 40 mg PO DAILY #30 ect 08/20/16 Rx Warfarin [Coumadin] 5 mg PO 1800 #10 tab 08/20/16 Rx oxyCODONE/Acetaminophen [Percocet 1 tab PO Q6H PRN #20 tab 08/20/16 Rx 5/325 mg Tab] predniSONE [Prednisone] 10 mg PO BID #21 tab 08/20/16 Rx Allergies/Adverse Reactions: Allergies Allergy/AdvReac Type Severity Reaction Status Date / Time No Known Allergies Allergy Verified 08/11/16 14:42 - Medications Medications: Current Medications Albuterol/Ipratropium (Duoneb 3 Mg/0.5 Mg (3 Ml) Ud) 3 ml INH RQ6 [facility] Last Admin: 08/18/16 07:49 Dose: Not Given Digoxin (Lanoxin) 0.125 mg PO DAILY@1800 [facility] Last Admin: 08/17/16 17:43 Dose: 0.125 mg Glipizide (Glucotrol Xl) 10 mg PO BID [facility] Last Admin: 08/18/16 09:28 Dose: 10 mg Vancomycin HCl 1 gm/ Sodium (Chloride) 250 mls @ 166.7 mls/hr IVPB Q24H [facility] Last Admin: 08/17/16 21:27 Dose: 166.7 mls/hr Insulin Aspart (Novolog) 0 unit SC ACHS [facility] PRN Reason: Protocol Last Admin: 08/18/16 08:22 Dose: Not Given Methylprednisolone (Solu-Medrol) 30 mg IV Q12 [facility] Last Admin: 08/18/16 09:29 Dose: 30 mg Metoprolol Tartrate (Lopressor) 50 mg PO BID [facility] Last Admin: 08/18/16 09:28 Dose: 50 mg Montelukast Sodium (Singulair) 10 mg PO HS [facility] Last Admin: 08/17/16 22:13 Dose: 10 mg Pantoprazole Sodium (Protonix Ec Tab) 40 mg PO DAILY [facility] Last Admin: 08/18/16 09:28 Dose: 40 mg Promethazine HCl/Codeine (Phenergan/Codeine Oral Syrup) 5 ml PO Q4 PRN PRN Reason: Cough Last Admin: 08/17/16 11:29 Dose: 5 ml Rosuvastatin Calcium (Crestor) 5 mg PO [facility] Last Admin: 08/17/16 21:22 Dose: 5 mg Tramadol HCl (Ultram) 25 mg PO TID PRN PRN Reason: Pain, Mild (1-3) Last Admin: 08/16/16 09:49 Dose: 25 mg Warfarin Sodium (Coumadin) 7.5 mg PO 1800 [facility] Stop: 08/18/16 18:01 Warfarin Sodium (Coumadin) 5 mg PO 1800 [facility] Stop: 08/18/16 18:01 Physical Exam - Constitutional Appears: Non-toxic, Cachectic, Chronically Ill - Head Exam Head Exam: ATRAUMATIC, NORMAL INSPECTION, NORMOCEPHALIC - Eye Exam Eye Exam: PERRL. absent: Scleral icterus - ENT Exam ENT Exam: Mucous Membranes Dry, Normal External Ear Exam, Normal Oropharynx - Neck Exam Neck exam: Negative for: Lymphadenopathy, Thyromegaly - Respiratory Exam Respiratory Exam: Decreased Breath Sounds, Clear to Auscultation Bilateral - Cardiovascular Exam Cardiovascular Exam: REGULAR RHYTHM, +S1, +S2 - GI/Abdominal Exam GI & Abdominal Exam: Diminished Bowel Sounds, Distended, Soft. absent: Tenderness - Rectal Exam Rectal Exam: Deferred - Exam Exam: NORMAL INSPECTION - Extremities Exam Extremities exam: Positive for: pedal pulses present. Negative for: calf tenderness, pedal edema, tenderness - Back Exam Back exam: absent: CVA tenderness (L), CVA tenderness (R), paraspinal tenderness - Neurological Exam Neurological exam: Alert, CN II-XII Intact, Oriented x3, Reflexes Normal - Psychiatric Exam Psychiatric exam: Normal Mood - Skin Skin Exam: Dry, Intact Results - Vital Signs Recent Vital Signs: Last Vital Signs Temp 98.6 F 08/18/16 08:00 Pulse 112 H 08/18/16 08:00 Resp 100 H 08/18/16 08:00 BP 118/70 08/18/16 08:00 Pulse Ox 100 08/18/16 08:00 - Labs Result Diagrams: 08/20/16 08:02 08/20/16 08:02 Labs: Laboratory Results - last 24 hr 08/17/16 08/17/16 08/17/16 11:56 16:11 21:26 PT INR POC Glucose (mg/dL) 156 H 191 H 195 H 08/17/16 08/18/16 08/18/16 21:37 07:14 07:17 PT 16.0 H D 14.6 H INR 1.4 D 1.3 POC Glucose (mg/dL) 135 H 08/18/16 11:24 PT INR POC Glucose (mg/dL) 243 H Assessment & Plan (1) Sepsis Status: Acute (2) Sepsis Status: Acute (3) CKD (chronic kidney disease) Status: Acute (4) COPD exacerbation Status: Acute (5) Dehydration Status: Acute (6) Diabetes Status: Acute - Assessment and Plan (Free Text) Assessment: + blood c/s will repeat may need removal of PORT
--- NOTE | 2016-08-18 15:03 | CP.PCM.CON ---
History of Present Illness - History of Present Illness History of Present Illness: Surgery: Dr. Kwon CC: Bacteremia HPI: 70F w. pmh of HTN, DM, gout, CAD, PE, COPD, R lung squamous cell carcinoma , s/p lobectomy and portacath placement, presented to ED on 08/11/16 w. SOB. Blood cultures are positive for staph a. x3. Pt seen at bedside. Pt resting comfortably. Denies [place]/blurred vision, no fever, +chills-baseline, no CP/ palpitations, +SOB/cough-chronic, no hemoptysis, no n/v/d, no change in appetite. PMH: HTN, DM, gout, CAD, PE, COPD, R lung squamous cell carcinoma PSH: lobectomy and portacath Meds: MAR reviewed NKDA Social: Former smoker, no ETOH/drugs Fhx: non-contributory Review of Systems - Review of Systems All systems: reviewed and no additional remarkable complaints except (HPI) Past Patient History - Infectious Disease Hx of Infectious Diseases: None - Tetanus Immunizations Tetanus Immunization: Unknown - Past Medical History & Family History Past Medical History?: Yes Past Family History: Reviewed and not pertinent - Past Social History Smoking Status: Former Smoker Chewing Tobacco Use: No Cigar Use: No Alcohol: None - CARDIAC Hx Cardia Arrhythmia: Yes Hx Hypercholesterolemia: Yes Hx Hypertension: Yes Hx Pacemaker: No - PULMONARY Hx Respiratory Disorders: Yes Hx Asthma: Yes Hx Chronic Obstructive Pulmonary Disease (COPD): Yes Hx Lung Cancer: Yes Hx Pulmonary Embolism: Yes Hx Sleep Apnea: No - NEUROLOGICAL Hx Neurological Disorder: No Hx Paralysis: No - HEENT Hx HEENT Problems: Yes Hx Epistaxis: Yes Other/Comment: eye glasses for reading - RENAL Hx Chronic Kidney Disease: Yes Hx Kidney Stones: Yes (CYSTO/STENT 2009) - ENDOCRINE/METABOLIC Hx Endocrine Disorders: Yes Hx Diabetes Mellitus Type 2: Yes - HEMATOLOGICAL/ONCOLOGICAL Hx Anemia: Yes Hx Cancer: Yes Hx Chemotherapy: Yes Hx Metastesis: Yes - INTEGUMENTARY Hx Dermatological Problems: No - MUSCULOSKELETAL/RHEUMATOLOGICAL Hx Arthritis: Yes Hx Gout: Yes - GASTROINTESTINAL Hx Gastrointestinal Disorders: Yes Hx Constipation: Yes - GENITOURINARY/GYNECOLOGICAL Hx Genitourinary Disorders: Yes - PSYCHIATRIC Hx Psychophysiologic Disorder: No Hx Substance Use: No - SURGICAL HISTORY Hx Coronary Stent: Yes (2004) Hx Pulmonary Surgery: Yes - ANESTHESIA Hx Anesthesia: Yes Hx Anesthesia Reactions: No Hx Malignant Hyperthermia: No Meds Allergies/Adverse Reactions: Allergies Allergy/AdvReac Type Severity Reaction Status Date / Time No Known Allergies Allergy Verified 08/11/16 14:42 - Medications Medications: Current Medications Albuterol/Ipratropium (Duoneb 3 Mg/0.5 Mg (3 Ml) Ud) 3 ml INH RQ6 [facility] Last Admin: 08/18/16 13:35 Dose: 3 ml Digoxin (Lanoxin) 0.125 mg PO DAILY@1800 [facility] Last Admin: 08/17/16 17:43 Dose: 0.125 mg Glipizide (Glucotrol Xl) 10 mg PO BID [facility] Last Admin: 08/18/16 09:28 Dose: 10 mg Vancomycin HCl 1 gm/ Sodium (Chloride) 250 mls @ 166.7 mls/hr IVPB Q24H [facility] Last Admin: 08/17/16 21:27 Dose: 166.7 mls/hr Insulin Aspart (Novolog) 0 unit SC ACHS [facility] PRN Reason: Protocol Last Admin: 08/18/16 12:53 Dose: 3 unit Methylprednisolone (Solu-Medrol) 30 mg IV Q12 [facility] Last Admin: 08/18/16 09:29 Dose: 30 mg Metoprolol Tartrate (Lopressor) 50 mg PO BID [facility] Last Admin: 08/18/16 09:28 Dose: 50 mg Montelukast Sodium (Singulair) 10 mg PO HS [facility] Last Admin: 08/17/16 22:13 Dose: 10 mg Pantoprazole Sodium (Protonix Ec Tab) 40 mg PO DAILY [facility] Last Admin: 08/18/16 09:28 Dose: 40 mg Promethazine HCl/Codeine (Phenergan/Codeine Oral Syrup) 5 ml PO Q4 PRN PRN Reason: Cough Last Admin: 08/17/16 11:29 Dose: 5 ml Rosuvastatin Calcium (Crestor) 5 mg PO HS [facility] Last Admin: 08/17/16 21:22 Dose: 5 mg Tramadol HCl (Ultram) 25 mg PO TID PRN PRN Reason: Pain, Mild (1-3) Last Admin: 08/16/16 09:49 Dose: 25 mg Warfarin Sodium (Coumadin) 7.5 mg PO 1800 [facility] Stop: 08/18/16 18:01 Warfarin Sodium (Coumadin) 5 mg PO 1800 [facility] Stop: 08/18/16 18:01 Physical Exam - Constitutional Appears: Non-toxic, No Acute Distress - Head Exam Head Exam: ATRAUMATIC, NORMOCEPHALIC - Eye Exam Eye Exam: EOMI - ENT Exam ENT Exam: Mucous Membranes Moist - Neck Exam Neck exam: Positive for: Full Rom - Respiratory Exam Respiratory Exam: NORMAL BREATHING PATTERN. absent: Accessory Muscle Use, Respiratory Distress - Cardiovascular Exam Additional comments: R side portacath - Neurological Exam Neurological exam: Alert, Oriented x3 Results - Vital Signs Recent Vital Signs: Last Vital Signs Temp 98.6 F 08/18/16 08:00 Pulse 112 H 08/18/16 08:00 Resp 100 H 08/18/16 08:00 BP 118/70 08/18/16 08:00 Pulse Ox 100 08/18/16 08:00 - Labs Result Diagrams: 08/17/16 07:15 08/17/16 07:15 Labs: Laboratory Results - last 24 hr 08/17/16 08/17/16 08/17/16 16:11 21:26 21:37 PT 16.0 H D INR 1.4 D POC Glucose (mg/dL) 191 H 195 H 08/18/16 08/18/16 08/18/16 07:14 07:17 11:24 PT 14.6 H INR 1.3 POC Glucose (mg/dL) 135 H 243 H Assessment & Plan - Assessment and Plan (Free Text) Assessment: 70F w. bacteremia -OR tomorrow for portacath removal -consent in chart, risks and benefits d/w pt -NPO at [place] -case d.w attending Sussy PGY2
--- NOTE | 2016-08-18 17:17 | PN ---
DATE: 08/18/2016 SUBJECTIVE: The patient is still experiencing shortness of breath and productive cough. No hemoptysis. PHYSICAL EXAMINATION: VITAL SIGNS: Blood pressure 118/70, heart rate 112, temperature 98.2, respirations 20. HEENT: Pale conjunctivae. CHEST: Absent breath sounds over the bases. HEART: S1, S2 regular. EXTREMITIES: No edema. LABORATORIES: Today's INR is 1.3. Today's blood sugars are 135, 243 and 381. Blood culture from the central line was positive for coagulase negative-Staph and 2 sets were also positive for coagulase-negative Staph that were taken on . ASSESSMENT: 1. History of pulmonary embolus. 2. Recurrent right lung squamous cell carcinoma. 3. Chronic insufficiency. 4. Gram-negative Staphylococcus bacteremia. RECOMMENDATIONS: I requested Coumadin 7.5 to be given today of 5. Continue Crestor at 5 mg once a day, glipizide 10 mg twice a day, digoxin 0.125 mg once a day, Lopressor at 50 mg twice a day, Solu-Medrol mg intravenously q. 12 hours, vancomycin 1 gram intravenously daily. I discussed the case with the MANAGER TRACK and I agree with repeating a transthoracic echocardiogram study. addendum. Coumadin will be withheld because of a new plan to remove rafa cath tomorrow Discussed with Dr. Moran, CXR, PA&lateral Parrish Bailey MD cc: [id number] TT: 08/18/2016 17:16:29 Confirmation # [id number] Dictation # [id number] jose miguel HARDY
[2016-08-18] MEDS: Promethazine/Cod 6.25mg-10mg/5ml Syr UD PO PRN ×2 (18:16→22:31)
[2016-08-18] MEDS: Digoxin 125 mcg (0.125 mg) Tab PO SCH (18:18)
--- NOTE | 2016-08-18 23:00 | PN ---
DATE: 08/18/2016 SUBJECTIVE: Today, the patient is alert and awake and much less shortness of breath today but has so me shortness of breath on exertion and decrease of cough ____. PHYSICAL EXAMINATION: VITAL SIGNS: The patient has a blood pressure of 118/70, pulse is 112, respirations 20, temperature 97.7 degrees Fahrenheit. NECK: Supple. LUNGS: There are some rhonchi noted and some rales at the bases. HEART: Regular rate and rhythm, but tachycardic. ABDOMEN: Soft. Mild tenderness at the right upper quadrant. EXTREMITIES: There is some +1 pitting edema. The patient had a blood culture. The blood culture has shown Staphylococcus aureus, coagulase negati ve. The patient was just on vancomycin and ID consult ordered. As per ID, the patient needs to get the Port-A-Cath removed and also continue antibiotic therapy. The patient is ____ this afternoon and also echocardiogram to rule out endocarditis, which will be do ne. The case was discussed ____. Isak Mark MD cc: [id number] TT: 08/18/2016 22:59:22 Confirmation # [id number] Dictation # [id number] sera
[2016-08-19] MEDS: Albuterol-Ipratrop 3 mg / 0.5 (3 ml) UD INH SCH ×3 (01:06→13:30)
[2016-08-19] MEDS: (Novolog) Insulin Aspart, Recombinant 100 u/ml 10 ml vial SC SCH ×4 (08:55→21:30)
--- NOTE | 2016-08-19 09:26 | CP.PCM.PN ---
Subjective - Date & Time of Evaluation Date of Evaluation: 08/19/16 Time of Evaluation: 09:24 - Subjective Subjective: PT ALERT, +COUGH, NO SPUTUTM NOW. NO CHANGE RIGHT CHEST PAIN. +MORRIS. ROS: OTHERWISE NEG Objective - Vital Signs/Intake and Output Vital Signs (last 24 hours): Temp Pulse Resp BP Pulse Ox 98.3 F 102 H 20 121/78 98 08/19/16 08:01 08/19/16 08:01 08/19/16 08:01 08/19/16 08:01 08/19/16 08:01 - Medications Medications: Current Medications Albuterol/Ipratropium (Duoneb 3 Mg/0.5 Mg (3 Ml) Ud) 3 ml INH RQ6 [facility] Last Admin: 08/19/16 07:42 Dose: 3 ml Digoxin (Lanoxin) 0.125 mg PO DAILY@1800 [facility] Last Admin: 08/18/16 18:18 Dose: 0.125 mg Glipizide (Glucotrol Xl) 10 mg PO BID [facility] Last Admin: 08/18/16 18:15 Dose: 10 mg Vancomycin HCl 1 gm/ Sodium (Chloride) 250 mls @ 166.7 mls/hr IVPB Q24H [facility] Last Admin: 08/18/16 23:18 Dose: 166.7 mls/hr Insulin Aspart (Novolog) 0 unit SC ACHS [facility] PRN Reason: Protocol Last Admin: 08/18/16 22:35 Dose: 2 unit Methylprednisolone (Solu-Medrol) 30 mg IV Q12 [facility] Last Admin: 08/18/16 22:34 Dose: 30 mg Metoprolol Tartrate (Lopressor) 50 mg PO BID [facility] Last Admin: 08/18/16 18:18 Dose: 50 mg Montelukast Sodium (Singulair) 10 mg PO HS [facility] Last Admin: 08/18/16 22:30 Dose: 10 mg Pantoprazole Sodium (Protonix Ec Tab) 40 mg PO DAILY [facility] Last Admin: 08/18/16 09:28 Dose: 40 mg Promethazine HCl/Codeine (Phenergan/Codeine Oral Syrup) 5 ml PO Q4 PRN PRN Reason: Cough Last Admin: 08/18/16 22:31 Dose: 5 ml Rosuvastatin Calcium (Crestor) 5 mg PO HS [facility] Last Admin: 08/18/16 22:30 Dose: 5 mg Tramadol HCl (Ultram) 25 mg PO TID PRN PRN Reason: Pain, Mild (1-3) Last Admin: 08/16/16 09:49 Dose: 25 mg - Labs Labs: 08/17/16 07:15 08/17/16 07:15 PT 14.6 SECONDS (9.7-12.2) H 08/18/16 07:17 INR 1.3 08/18/16 07:17 - Constitutional Appears: Chronically Ill - Head Exam Head Exam: ATRAUMATIC, NORMOCEPHALIC - Eye Exam Eye Exam: EOMI, Normal appearance - ENT Exam ENT Exam: Mucous Membranes Moist - Neck Exam Neck Exam: Normal Inspection. absent: Tenderness - Respiratory Exam Respiratory Exam: Chest Wall Tenderness, Decreased Breath Sounds, Prolonged Expiratory Phase, Rhonchi - Cardiovascular Exam Cardiovascular Exam: RRR, +S1, +S2 - GI/Abdominal Exam GI & Abdominal Exam: Soft. absent: Tenderness - Rectal Exam Rectal Exam: Deferred - Extremities Exam Extremities Exam: absent: Calf Tenderness - Back Exam Back Exam: absent: CVA tenderness (L), CVA tenderness (R) - Neurological Exam Neurological Exam: Alert, Awake, CN II-XII Intact, Oriented x3 - Psychiatric Exam Psychiatric exam: Normal Affect - Skin Skin Exam: absent: Rash Assessment and Plan (1) CAD (coronary artery disease) Status: Acute (2) CKD (chronic kidney disease) Status: Acute (3) COPD exacerbation Status: Acute (4) Diabetes Status: Acute (5) Hypertension Status: Acute (6) Lung cancer Status: Acute (7) Pulmonary embolism Status: Acute (8) Respiratory failure with hypoxia Status: Acute - Assessment and Plan (Free Text) Assessment: RESP STATUS NO SIG CHANGE., CONT NEB BD., ADVAIR, SINGULAIR., AFEBRILE +STAPH BACTEREMIA NOTED, CONT IV AB. FOR AGUSTIN CATH REMOVAL. F/U ECHO. CXR REVIEWED., COUMADIN ON HOLD. MONITOR O2 SAT. MONITOR GLUCOSE ON STEROIDS. PROG POOR. DISCUSSED WITH STAFF.
--- NOTE | 2016-08-19 10:32 | RAD ---
HISTORY: Pneumonia COMPARISON: CT chest from 08/15/2016 TECHNIQUE: Chest PA and lateral FINDINGS: The right MediPort terminates at the cavoatrial junction. LUNGS: There is redemonstration of a large right upper lobe mass. Also noted is an adjacent satellite lesion. The left lung is clear. PLEURA: No significant pleural effusion identified. No pneumothorax apparent. CARDIOVASCULAR: The heart is normal in size. OSSEOUS STRUCTURES: No significant abnormalities. VISUALIZED UPPER ABDOMEN: Normal. OTHER FINDINGS: None. IMPRESSION: Large right upper lobe mass and an adjacent satellite lesion.
[2016-08-19] MEDS: GlipiZIDE 10 mg SR Tab PO SCH ×2 (11:11→17:52)
[2016-08-19] MEDS: Pantoprazole 40 mg EC Tab PO SCH (11:12)
[2016-08-19] MEDS: MethylPREDNISolone 40 mg Vial IV SCH ×2 (11:21→21:29)
[2016-08-19] MEDS ORDERED: Sodium Chloride 0.9% 1,000 ML IV ONE (14:35)
[2016-08-19] MEDS ORDERED: Midazolam 2 MG/2 ML VIAL ONE (14:40)
[2016-08-19] MEDS ORDERED: Etomidate 20 mg/10ml Inj IV ONE (14:43)
[2016-08-19] MEDS ORDERED: Lidocaine 1% Inj (20ml) ONE (14:44)
[2016-08-19] MEDS ORDERED: Lactated Ringer's 1,000 ML IV ONE (15:08)
[2016-08-19] MEDS ORDERED: Oxycodone/Acetaminophen 5/325 mg Tab PO PRN (15:10)
--- NOTE | 2016-08-19 15:10 | PCM.SURG1 ---
Surgeon's Initial Post Op Note - Surgeon's Notes Surgeon: Doyle Lead Nuclear Medicine Technologist: Sussy PGY2 Type of Anesthesia: IV Sedation, Local Pre-Operative Diagnosis: Bacteremia Operative Findings: portacath Post-Operative Diagnosis: same Operation Performed: removal of R subclavian portacath Specimen/Specimens Removed: portacath Estimated Blood Loss: EBL {In ML}: 5 Blood Products Given: N/A Drains Used: No Drains Post-Op Condition: Good Date of Surgery/Procedure: 08/19/16 Time of Surgery/Procedure: 15:10
[2016-08-19] MEDS ORDERED: HYDROmorphone 0.5 mg/0.5 ml ISec IVP PRN (15:17)
[2016-08-19] MEDS ORDERED: Lactated Ringer's 1,000 ML IV SCH (15:30)
--- NOTE | 2016-08-19 16:28 | PN ---
DATE: 08/19/2016 The patient underwent removal of the Port-A-Cath in the operating room. She denies any chest pain or shortness of breath. She is in sinus rhythm on the monitor. PHYSICAL EXAMINATION: VITAL SIGNS: Blood pressure 141/67, heart rate 92, temperature 98.5, respiration 14. HEENT: Pale conjunctivae. CHEST: Diminished breath sounds over the bases. HEART: S1, S2 regular. EXTREMITIES: No edema. LABORATORIES: The most recent blood sugar at 3:40 p.m. is 169. Chest x-ray PA and lateral performed yesterday revealed a large right upper lobe mass and an adjacent satellite lesion. ASSESSMENT: 1. 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 2. History of pulmonary embolism. 3. Hypertension. 4. Uncontrolled diabetes mellitus. RECOMMENDATIONS: Continue Crestor at 5 mg once a day, glipizide 10 mg twice a day, Lanoxin 0.125 mg once a day, Lopressor at 50 mg twice a day, Solu-Medrol at 30 mg intravenously twice a day, vancomyci n 1 gram intravenously daily. Obtain 12-lead EKG postoperatively. Parrish Bailey MD cc: [id number] TT: 08/19/2016 16:28:08 Confirmation # [id number] Dictation # [id number] en
[2016-08-19] MEDS: Digoxin 125 mcg (0.125 mg) Tab PO SCH (17:51)
--- NOTE | 2016-08-19 18:28 | OP ---
PROCEDURE DATE: 08/19/2016 PREOPERATIVE DIAGNOSIS: Possible port infection, positive bacteremia. PROCEDURE CARRIED OUT: Removal of Port-A-Cath, right subclavian area. PROCEDURE: The patient was given local anesthesia, intravenous sedation and was already on systemic antibiotics. The area was removed by sharp and blunt dissection. The entire catheter and the port w as removed. The wound was then closed. There was no gross sign of infection. The entire wound was then closed and Steri-Strips applied. Blood loss for the procedure was 5 mL. OPERATION CARRIED OUT: Removal of Port-A-Cath, right side. Filiberto Kwon Jr., MD cc: [phone] TT: 08/19/2016 18:27:28 an
--- NOTE | 2016-08-19 19:04 | PN ---
DATE: 08/19/2016 SUBJECTIVE: Today, the patient is alert and awake with much less shortness of breath on exertion ___ __. No chest pain, no palpitations. OBJECTIVE: VITAL SIGNS: The patient has a blood pressure of 141/77, pulse is 92, respirations 14 and temperatur e 98.5. HEAD: Normocephalic. NECK: Supple. LUNGS: and some rhonchi noted. HEART: Regular rate and rhythm. ABDOMEN: Soft, nontender, no palpable mass. EXTREMITIES: There is no edema. The patient has some tests done. The PT is 14.6, INR 1.3, done yesterday. PLAN: The patient is going have catheter removed today by . Going to continue the an tibiotic therapy. After that the patient will be put on Coumadin. The case was reviewed and discuss ed with Laine Elliott the Nurse Practitioner. Isak Mark MD cc: [id number] TT: 08/19/2016 19:03:25 Confirmation # [id number] Dictation # [id number] dn
[2016-08-20] MEDS: Albuterol-Ipratrop 3 mg / 0.5 (3 ml) UD INH SCH ×4 (01:02→18:59)
--- NOTE | 2016-08-20 04:33 | CP.PCM.PN ---
Subjective - Date & Time of Evaluation Date of Evaluation: 08/20/16 Time of Evaluation: 04:30 - Subjective Subjective: SURGERY PROGRESS NOTE FOR DR. RM 70F seen and examined at bedside. Patient denies pain at surgical site, no complaints. Objective - Vital Signs/Intake and Output Vital Signs (last 24 hours): Temp Pulse Resp BP Pulse Ox 98.4 F 103 H 20 144/87 99 08/20/16 00:00 08/20/16 00:00 08/20/16 00:00 08/20/16 00:00 08/20/16 00:00 - Medications Medications: Current Medications Albuterol/Ipratropium (Duoneb 3 Mg/0.5 Mg (3 Ml) Ud) 3 ml INH RQ6 [facility] Last Admin: 08/20/16 01:02 Dose: 3 ml Digoxin (Lanoxin) 0.125 mg PO DAILY@1800 [facility] Last Admin: 08/19/16 17:51 Dose: 0.125 mg Glipizide (Glucotrol Xl) 10 mg PO BID [facility] Last Admin: 08/19/16 17:52 Dose: 10 mg Vancomycin HCl 1 gm/ Sodium (Chloride) 250 mls @ 166.7 mls/hr IVPB Q24H [facility] Last Admin: 08/18/16 23:18 Dose: 166.7 mls/hr Insulin Aspart (Novolog) 0 unit SC ACHS [facility] PRN Reason: Protocol Last Admin: 08/19/16 21:30 Dose: 4 unit Methylprednisolone (Solu-Medrol) 30 mg IV Q12 [facility] Last Admin: 08/19/16 21:29 Dose: 30 mg Metoprolol Tartrate (Lopressor) 50 mg PO BID [facility] Last Admin: 08/19/16 17:52 Dose: 50 mg Montelukast Sodium (Singulair) 10 mg PO HS [facility] Last Admin: 08/19/16 21:29 Dose: 10 mg Oxycodone/Acetaminophen (Percocet 5/325 Mg Tab) 1 tab PO Q6H PRN PRN Reason: Pain, moderate (4-7) Stop: 08/22/16 15:11 Pantoprazole Sodium (Protonix Ec Tab) 40 mg PO DAILY [facility] Last Admin: 08/19/16 11:12 Dose: Not Given Promethazine HCl/Codeine (Phenergan/Codeine Oral Syrup) 5 ml PO Q4 PRN PRN Reason: Cough Last Admin: 08/18/16 22:31 Dose: 5 ml Rosuvastatin Calcium (Crestor) 5 mg PO HS [facility] Last Admin: 08/19/16 21:29 Dose: 5 mg Fluticasone/Salmeterol (Advair Diskus 250/50) 1 puff INH RQ12 [facility] Tramadol HCl (Ultram) 25 mg PO TID PRN PRN Reason: Pain, Mild (1-3) Last Admin: 08/16/16 09:49 Dose: 25 mg - Labs Labs: 08/17/16 07:15 08/17/16 07:15 PT 11.3 SECONDS (9.7-12.2) 08/19/16 18:20 INR 1.0 08/19/16 18:20 - Constitutional Appears: Non-toxic, No Acute Distress - Neck Exam Additional comments: site of portacath removal clean dry intact. no hematoma - Respiratory Exam Respiratory Exam: Clear to Ausculation Bilateral, NORMAL BREATHING PATTERN - Cardiovascular Exam Cardiovascular Exam: REGULAR RHYTHM, +S1, +S2 Assessment and Plan - Assessment and Plan (Free Text) Assessment: 70F s/p portacath removal POD#1 - Surgical site CDI - No further intervention needed Further recs discuss with Attending Ed Morales, PGY1
[2016-08-20 08:00] VITALS: O2SAT 100
[2016-08-20 08:10] LABS: BASO % 0.1 % (0.0-2.0); HEMATOCRIT 34.6 % (34.0-47.0); LYMPH # 0.8 K/uL (1.0-4.3); LYMPH % 2.9 % (20.0-40.0); MEAN CELL VOLUME 86.3 fL (81.0-99.0); MEAN CORPUSCULAR HEMOGLOBIN 26.6 pg (27.0-31.0); MEAN CORPUSCULAR HGB CONC 30.9 g/dL (33.0-37.0); MEAN PLATELET VOLUME 8.3 fL (7.2-11.7); MONO # 0.7 K/uL (0.0-0.8); MONO % 2.6 % (0.0-10.0); PLATELET COUNT 372 K/uL (130-400); RED CELL DISTRIBUTION WIDTH 17.5 % (11.5-14.5)
[2016-08-20 08:20] LABS: POTASSIUM 4.5 mmol/L (3.6-5.2)
[2016-08-20] MEDS: (Novolog) Insulin Aspart, Recombinant 100 u/ml 10 ml vial SC SCH ×4 (08:38→22:09)
[2016-08-20] MEDS: Pantoprazole 40 mg EC Tab PO SCH (09:54)
[2016-08-20] MEDS: GlipiZIDE 10 mg SR Tab PO SCH ×2 (09:54→17:34)
[2016-08-20] MEDS: MethylPREDNISolone 40 mg Vial IV SCH ×2 (09:55→22:11)
[2016-08-20] MEDS: Fluticasone-Salmeterol 250-50mcg Diskus INH SCH ×2 (10:21→18:59)
[2016-08-20 10:56] LABS: NEUTROPHIL 87 % (50-75); TOTAL CELLS COUNTED 100
[2016-08-20 10:58] LABS: LARGE PLATELETS PRESENT
--- NOTE | 2016-08-20 12:05 | CP.PCM.PN ---
Subjective - Date & Time of Evaluation Date of Evaluation: 08/20/16 Time of Evaluation: 12:01 - Subjective Subjective: PT ALERT, FEELS BETTER, LESS PAIN NOW., ROS; OTHERWISE NEG Objective - Vital Signs/Intake and Output Vital Signs (last 24 hours): Temp Pulse Resp BP Pulse Ox 97.9 F 79 20 149/79 100 08/20/16 07:59 08/20/16 07:59 08/20/16 07:59 08/20/16 07:59 08/20/16 07:59 Intake and Output: 08/20/16 08/20/16 06:59 18:59 Intake Total 250 Balance 250 - Medications Medications: Current Medications Albuterol/Ipratropium (Duoneb 3 Mg/0.5 Mg (3 Ml) Ud) 3 ml INH RQ6 [facility] Last Admin: 08/20/16 07:20 Dose: 3 ml Digoxin (Lanoxin) 0.125 mg PO DAILY@1800 [facility] Last Admin: 08/19/16 17:51 Dose: 0.125 mg Glipizide (Glucotrol Xl) 10 mg PO BID [facility] Last Admin: 08/20/16 09:54 Dose: 10 mg Vancomycin HCl 1 gm/ Sodium (Chloride) 250 mls @ 166.7 mls/hr IVPB Q24H [facility] Last Admin: 08/18/16 23:18 Dose: 166.7 mls/hr Insulin Aspart (Novolog) 0 unit SC ACHS [facility] PRN Reason: Protocol Last Admin: 08/20/16 08:38 Dose: 10 unit Methylprednisolone (Solu-Medrol) 30 mg IV Q12 [facility] Last Admin: 08/20/16 09:55 Dose: 30 mg Metoprolol Tartrate (Lopressor) 50 mg PO BID [facility] Last Admin: 08/20/16 09:55 Dose: 50 mg Montelukast Sodium (Singulair) 10 mg PO HS [facility] Last Admin: 08/19/16 21:29 Dose: 10 mg Oxycodone/Acetaminophen (Percocet 5/325 Mg Tab) 1 tab PO Q6H PRN PRN Reason: Pain, moderate (4-7) Stop: 08/22/16 15:11 Pantoprazole Sodium (Protonix Ec Tab) 40 mg PO DAILY [facility] Last Admin: 08/20/16 09:54 Dose: 40 mg Promethazine HCl/Codeine (Phenergan/Codeine Oral Syrup) 5 ml PO Q4 PRN PRN Reason: Cough Last Admin: 08/18/16 22:31 Dose: 5 ml Rosuvastatin Calcium (Crestor) 5 mg PO HS [facility] Last Admin: 08/19/16 21:29 Dose: 5 mg Fluticasone/Salmeterol (Advair Diskus 250/50) 1 puff INH RQ12 [facility] Last Admin: 08/20/16 10:21 Dose: Not Given Tramadol HCl (Ultram) 25 mg PO TID PRN PRN Reason: Pain, Mild (1-3) Last Admin: 08/16/16 09:49 Dose: 25 mg - Labs Labs: 08/20/16 08:02 08/20/16 08:02 PT 11.3 SECONDS (9.7-12.2) 08/19/16 18:20 INR 1.0 08/19/16 18:20 - Constitutional Appears: Chronically Ill - Head Exam Head Exam: ATRAUMATIC, NORMOCEPHALIC - Eye Exam Eye Exam: EOMI, Normal appearance. absent: Scleral icterus - ENT Exam ENT Exam: Mucous Membranes Moist - Neck Exam Neck Exam: Normal Inspection. absent: Tenderness - Respiratory Exam Respiratory Exam: Chest Wall Tenderness, Decreased Breath Sounds, Prolonged Expiratory Phase, Rhonchi. absent: Accessory Muscle Use - Cardiovascular Exam Cardiovascular Exam: RRR, +S1, +S2 - GI/Abdominal Exam GI & Abdominal Exam: Soft. absent: Tenderness - Rectal Exam Rectal Exam: Deferred - Extremities Exam Extremities Exam: absent: Calf Tenderness, Pedal Edema - Back Exam Back Exam: absent: CVA tenderness (L), CVA tenderness (R) - Neurological Exam Neurological Exam: Alert, Awake, CN II-XII Intact, Oriented x3 - Psychiatric Exam Psychiatric exam: Normal Affect - Skin Skin Exam: absent: Rash Assessment and Plan (1) CAD (coronary artery disease) Status: Acute (2) CKD (chronic kidney disease) Status: Acute (3) COPD exacerbation Status: Acute (4) Diabetes Status: Acute (5) Hypertension Status: Acute (6) Lung cancer Status: Acute (7) Pulmonary embolism Status: Acute (8) Respiratory failure with hypoxia Status: Acute - Assessment and Plan (Free Text) Assessment: RESP STATUS SLOW IMPROVEMENT., ON LOW DOSE STEROIDS, MONITOR GLUCOSE., CONT NEB BD., ADVAIR., SINGULAIR., AFEBRILE ON AB., S/P AGUSTIN CATH REMOVAL YESTERDAY. + BACTEREMIA. CONT IV AB PER ID. CXR REVIEWED. DISCUSSED WITH STAFF. PROG POOR.
--- NOTE | 2016-08-20 13:44 | PN ---
DATE: 08/20/2016 SUBJECTIVE: The patient denies shortness of breath. She is experiencing productive cough. No repor daniela bleeding from the surgical site. PHYSICAL EXAMINATION: VITAL SIGNS: Blood pressure 149/79, heart rate 79, temperature 97.9, respirations 20. HEENT: Pale conjunctivae. CHEST: Right basal rhonchi. HEART: S1, S2 regular. EXTREMITIES: No edema. LABORATORIES: SMA-7: Sodium 131, potassium 4.5, chloride 96, CO2 of 22, glucose 364, BUN 25, creati nine 1.5. CBC: Hemoglobin and hematocrit 10.7 and 34.6. White count and platelet count are 27,000 and 372,000. EKG done yesterday revealed sinus rhythm with sinus arrhythmia and nonspecific ST-T wav e changes, heart rate was 70. ASSESSMENT: 1. Recurrent lung squamous cell carcinoma. 2. Status post removal of Port-A-Cath. 3. Staph coagulase negative bacteremia. 4. Rule out endocarditis. RECOMMENDATIONS: Continue Crestor at 5 mg once a day, glipizide 10 mg twice a day, Lanoxin 0.125 mg once a day, Lopressor 50 mg twice a day, Singulair 10 mg once a day, Solu-Medrol 30 mg intravenous tw ice a day, vancomycin 1 gram intravenously daily. I will review the echocardiographic study jb katz today. Parrish Bailey MD cc: [id number] TT: 08/20/2016 13:43:34 Confirmation # [id number] Dictation # [id number] rach
--- NOTE | 2016-08-20 15:50 | CP.PCM.PN ---
Subjective - Date & Time of Evaluation Date of Evaluation: 08/20/16 Time of Evaluation: 11:00 - Subjective Subjective: Pt seen and examined today, states feels better, c/o pain left rib cage , sob with excretion oob with PT 20 ft without sob and o2 sat 92% with nasal canula s/p medicport removal POD# 1 echo- no vegetation Objective - Vital Signs/Intake and Output Vital Signs (last 24 hours): Temp Pulse Resp BP Pulse Ox 97.9 F 79 20 149/79 100 08/20/16 07:59 08/20/16 07:59 08/20/16 07:59 08/20/16 07:59 08/20/16 07:59 Intake and Output: 08/20/16 08/20/16 06:59 18:59 Intake Total 250 Balance 250 - Medications Medications: Current Medications Albuterol/Ipratropium (Duoneb 3 Mg/0.5 Mg (3 Ml) Ud) 3 ml INH RQ6 [facility] Last Admin: 08/20/16 13:07 Dose: 3 ml Digoxin (Lanoxin) 0.125 mg PO DAILY@1800 [facility] Last Admin: 08/19/16 17:51 Dose: 0.125 mg Glipizide (Glucotrol Xl) 10 mg PO BID [facility] Last Admin: 08/20/16 09:54 Dose: 10 mg Vancomycin HCl 1 gm/ Sodium (Chloride) 250 mls @ 166.7 mls/hr IVPB Q24H [facility] Last Admin: 08/18/16 23:18 Dose: 166.7 mls/hr Insulin Aspart (Novolog) 0 unit SC ACHS [facility] PRN Reason: Protocol Last Admin: 08/20/16 12:25 Dose: 4 unit Insulin Aspart (Novolog Mix 70/30 (70/30 Units/Ml)) 20 units SC BIDCC [facility] Methylprednisolone (Solu-Medrol) 30 mg IV Q12 [facility] Last Admin: 08/20/16 09:55 Dose: 30 mg Metoprolol Tartrate (Lopressor) 50 mg PO BID [facility] Last Admin: 08/20/16 09:55 Dose: 50 mg Montelukast Sodium (Singulair) 10 mg PO HS [facility] Last Admin: 08/19/16 21:29 Dose: 10 mg Oxycodone/Acetaminophen (Percocet 5/325 Mg Tab) 1 tab PO Q6H PRN PRN Reason: Pain, moderate (4-7) Stop: 08/22/16 15:11 Pantoprazole Sodium (Protonix Ec Tab) 40 mg PO DAILY [facility] Last Admin: 08/20/16 09:54 Dose: 40 mg Promethazine HCl/Codeine (Phenergan/Codeine Oral Syrup) 5 ml PO Q4 PRN PRN Reason: Cough Last Admin: 08/18/16 22:31 Dose: 5 ml Rosuvastatin Calcium (Crestor) 5 mg PO HS [facility] Last Admin: 08/19/16 21:29 Dose: 5 mg Fluticasone/Salmeterol (Advair Diskus 250/50) 1 puff INH RQ12 [facility] Last Admin: 08/20/16 10:21 Dose: Not Given Tramadol HCl (Ultram) 25 mg PO TID PRN PRN Reason: Pain, Mild (1-3) Last Admin: 08/16/16 09:49 Dose: 25 mg Warfarin Sodium (Coumadin) 10 mg PO 1600 [facility] Stop: 08/20/16 16:01 - Labs Labs: 08/20/16 08:02 08/20/16 08:02 PT 11.9 SECONDS (9.7-12.2) 08/20/16 11:44 INR 1.0 08/20/16 11:44 Assessment and Plan - Assessment and Plan (Free Text) Assessment: A/P 70yr old female admitted for sob blood culture + coag. neg. s/p medicport removal POD#1 echo - red by Dr. Bailey- no vegitation seen by Dr. Mark today Pt accepted at [facility] today for rehab D/w With Dr. Mark , stable for discharge to [facility] today and Dr. Mark with follow the patient at [facility]
[2016-08-20] MEDS ORDERED: (Novolog Mix 70/30) Insulin Aspart/Insulin Aspar 100 units/ml SC SCH ×2 (17:00)
[2016-08-20 17:20] VITALS: BP 140/74; PULSE 20; RESP 95; TEMP 98
[2016-08-20] MEDS: Digoxin 125 mcg (0.125 mg) Tab PO SCH (17:31)
[2016-08-20 17:37] VITALS: PULSE 96
--- NOTE | 2016-08-20 18:03 | CP.PCM.PN ---
Subjective - Date & Time of Evaluation Date of Evaluation: 08/20/16 Time of Evaluation: 07:00 - Subjective Subjective: iv rx in progress line removed will repeat cultures feels better Objective - Vital Signs/Intake and Output Vital Signs (last 24 hours): Temp Pulse Resp BP Pulse Ox 98 F 20 L 95 H 140/74 100 08/20/16 17:19 08/20/16 17:19 08/20/16 17:19 08/20/16 17:19 08/20/16 07:59 Intake and Output: 08/20/16 08/20/16 06:59 18:59 Intake Total 250 Balance 250 - Medications Medications: Current Medications Albuterol/Ipratropium (Duoneb 3 Mg/0.5 Mg (3 Ml) Ud) 3 ml INH RQ6 [facility] Last Admin: 08/20/16 13:07 Dose: 3 ml Digoxin (Lanoxin) 0.125 mg PO DAILY@1800 [facility] Last Admin: 08/20/16 17:31 Dose: 0.125 mg Glipizide (Glucotrol Xl) 10 mg PO BID [facility] Last Admin: 08/20/16 17:34 Dose: 10 mg Vancomycin HCl 1 gm/ Sodium (Chloride) 250 mls @ 166.7 mls/hr IVPB Q24H [facility] Last Admin: 08/18/16 23:18 Dose: 166.7 mls/hr Insulin Aspart (Novolog) 0 unit SC ACHS [facility] PRN Reason: Protocol Last Admin: 08/20/16 17:17 Dose: 6 unit Insulin Aspart (Novolog Mix 70/30 (70/30 Units/Ml)) 15 units SC BIDCC [facility] Last Admin: 08/20/16 17:16 Dose: 15 units Methylprednisolone (Solu-Medrol) 30 mg IV Q12 [facility] Last Admin: 08/20/16 09:55 Dose: 30 mg Metoprolol Tartrate (Lopressor) 50 mg PO BID [facility] Last Admin: 08/20/16 17:34 Dose: 50 mg Montelukast Sodium (Singulair) 10 mg PO HS [facility] Last Admin: 08/19/16 21:29 Dose: 10 mg Oxycodone/Acetaminophen (Percocet 5/325 Mg Tab) 1 tab PO Q6H PRN PRN Reason: Pain, moderate (4-7) Stop: 08/22/16 15:11 Pantoprazole Sodium (Protonix Ec Tab) 40 mg PO DAILY [facility] Last Admin: 08/20/16 09:54 Dose: 40 mg Promethazine HCl/Codeine (Phenergan/Codeine Oral Syrup) 5 ml PO Q4 PRN PRN Reason: Cough Last Admin: 08/18/16 22:31 Dose: 5 ml Rosuvastatin Calcium (Crestor) 5 mg PO HS [facility] Last Admin: 08/19/16 21:29 Dose: 5 mg Fluticasone/Salmeterol (Advair Diskus 250/50) 1 puff INH RQ12 [facility] Last Admin: 08/20/16 10:21 Dose: Not Given Tramadol HCl (Ultram) 25 mg PO TID PRN PRN Reason: Pain, Mild (1-3) Last Admin: 08/16/16 09:49 Dose: 25 mg - Labs Labs: 08/20/16 08:02 08/20/16 08:02 PT 11.9 SECONDS (9.7-12.2) 08/20/16 11:44 INR 1.0 08/20/16 11:44 - Constitutional Appears: Non-toxic, Chronically Ill - Head Exam Head Exam: NORMOCEPHALIC - Eye Exam Eye Exam: PERRL. absent: Scleral icterus - ENT Exam ENT Exam: Mucous Membranes Dry - Neck Exam Neck Exam: absent: Lymphadenopathy - Respiratory Exam Respiratory Exam: Decreased Breath Sounds, Rhonchi - Cardiovascular Exam Cardiovascular Exam: REGULAR RHYTHM, +S1, +S2 - GI/Abdominal Exam GI & Abdominal Exam: Distended, Soft. absent: Tenderness - Rectal Exam Rectal Exam: Deferred - Exam Exam: NORMAL INSPECTION - Extremities Exam Extremities Exam: absent: Pedal Edema - Back Exam Back Exam: absent: CVA tenderness (L), CVA tenderness (R) - Neurological Exam Neurological Exam: Alert, Awake, Oriented x3 Assessment and Plan (1) Sepsis Status: Acute (2) Sepsis Status: Acute (3) CKD (chronic kidney disease) Status: Acute (4) COPD exacerbation Status: Acute (5) Dehydration Status: Acute (6) Diabetes Status: Acute
--- NOTE | 2016-08-20 21:14 | PN ---
DATE: 08/20/2016 Today, patient is alert and awake. Denied any shortness of breath at this point. No chest pain, no palpitations. However, on exertion, patient is still having some mild shortness of breath. PHYSICAL EXAMINATION: VITAL SIGNS: The patient has a blood pressure of 140/74, pulse is 79, respirations are 20. NECK: Supple. LUNGS: Have some rhonchi noted and some rales at the bases. HEART: Regular rate and rhythm, but has some tachycardia at times. ABDOMEN: Soft, nontender and positive bowel sounds. EXTREMITIES: There is no tenderness noted at this point. PLAN: The Port-A-Cath was removed yesterday. The patient tolerated it well and no bleeding, so we a re going to be able to discharge the patient to [facility]. We are going to follow this patient. Case was discussed with Laine lEliott. Isak Mark MD cc: [id number] TT: 08/20/2016 21:14:35 Confirmation # [id number] Dictation # [id number] rach
[2016-08-20] MEDS: Tramadol 25 mg PO PRN (22:12)
--- NOTE | 2016-08-21 12:13 | CARD ---
APPROVED REPORT EKG Measurement Heart [id number] <Conclusion> Sinus rhythm with marked sinus arrhythmia Nonspecific ST and T wave abnormality Abnormal ECG
--- NOTE | 2016-08-21 12:50 | CARD ---
APPROVED REPORT EXAM: Two-dimensional and M-mode echocardiogram with Doppler and color Doppler. Other Information Quality : GoodRhythm : NSR INDICATION Dyspnea Chest Pain COPD R/O ENDOCARDITIS RISK FACTORS Hypertension Hyperlipidemia Diabetes M-Mode DIMENSIONS RVDd1.35 (2.1-3.2cm)Left Atrium (MM)2.36 (2.5-4.0cm) IVSd0.66 (0.7-1.1cm)Aortic Root2.50 (2.2-3.7cm) LVDd4.37 (4.0-5.6cm)Aortic Cusp Exc.1.60 (1.5-2.0cm) PWd0.97 (0.7-1.1cm)FS (%) 36 % LVDs2.81 (2.0-3.8cm)LVEF (%)65 (>50%) Mitral Valve MV E Wvnzyeax54.3cm/sMV A Pzxcwryp123.3cm/sE/A ratio0.6 TDI E/Lateral E'0.0E/Medial E'0.0 Tricuspid Valve TR Peak Wvseihuo274yi/sTR Peak Gr.2bnPkHASB61opFf <Conclusion> tds. poor window. la,lv & ra rv size appears normal. lv systolic funciton appears normal with lvef of 60-65%. mitral & tv looks normal. aortic & pv not seen well to comment. no pericardial effusion. clinical correlation is adv.
--- NOTE | 2016-08-24 22:51 | DS ---
The patient is a 70-year-old female with history of cancer of the lung, hypertension, COPD, and a his tory of pulmonary embolism, who came to the Emergency Room. The patient was complaining of shortness of breath that was worsening progressively. The patient was admitted and had a pulmonary consult wi Dr. Casillas and also had an oncological consult with . The patient was found on the physical exam wheezing, and also the patient was tachycardic and t he patient was put on medication including Solu-Medrol. The patient has continued to improve progres sively but the patient had a blood culture that was positive for Staph epididymis. The patient had a consult with Dr. Campuzano of [place] who suggested to remove the Port-A-Cath and that was done by and the patient was put on vancomycin. So, at this point the vancomycin for at least 10 days and the patient was transferred to [facility] for IV antibiotic therapy and also physical therapy. Isak Mark MD cc: [id number] TT: 08/24/2016 22:51:12 sera
== END 2016-08-20 23:00 | DRG 872 ==
LOC: C.ER 13:54 → C.9E 16:01 → C.5T 18:51 → OBSVTOIN 08-12 11:14 → C.6T 08-14 06:45 → C.3T 08-17 21:51
PROVIDERS: ADMIT Specialist; ATTEND Specialist
PROC: 05PYX3Z Removal of Infusion Device from Upper Vein, External Approach (ICD-10-PCS; 2016-08-19)
PROC: 0JPV0XZ Removal of Tunneled Vascular Access Device from Upper Extremity Subcutaneous Tissue and Fascia, Open Approach (ICD-10-PCS; principal; 2016-08-19 14:35)
DX: A41.01 Sepsis due to Methicillin susceptible Staphylococcus aureus (principal); D68.9 Coagulation defect, unspecified; E11.22 Type 2 diabetes mellitus with diabetic chronic kidney disease; J44.0 Chronic obstructive pulmonary disease with (acute) lower respiratory infection; I50.9 Heart failure, unspecified; I13.0 Hypertensive heart and chronic kidney disease with heart failure and stage 1 through stage 4 chronic kidney disease, or unspecified chronic kidney disease; J44.1 Chronic obstructive pulmonary disease with (acute) exacerbation; E11.65 Type 2 diabetes mellitus with hyperglycemia; N18.9 Chronic kidney disease, unspecified; E78.5 Hyperlipidemia, unspecified; M19.90 Unspecified osteoarthritis, unspecified site; D64.9 Anemia, unspecified; B95.8 Unspecified staphylococcus as the cause of diseases classified elsewhere; E86.0 Dehydration; I25.10 Atherosclerotic heart disease of native coronary artery without angina pectoris; E78.00 Pure hypercholesterolemia, unspecified; Z85.118 Personal history of other malignant neoplasm of bronchus and lung; Z86.711 Personal history of pulmonary embolism; Z87.442 Personal history of urinary calculi

== ENCOUNTER 2016-10-01 07:26 | Inpatient (IN) | payer MEDICARE ==
[2016-10-01 07:26] VITALS: BMI 24.2
[2016-10-01] MEDS ORDERED: Sodium Chloride 0.9% 1,000 ML IV ONE (07:35)
--- NOTE | 2016-10-01 07:44 | C.PDOC ---
History Of Present Illness Pt is a 71 yr old female with a past medical hx of lung CA, DM, HTN, pulmonary embolism, COPD (just released from [facility] -- for rehab and to finish IV abx therapy s/p infection) who presents to the ED c/o right lateral rib pain (next to right flank) that radiates to her right anterior chest for last 1.5 days. Pain is worse w/ deep inspiration. No cough. No fever. Tylenol helps the pain. Pain is an 8 or 9 on a 1-10 scale. The pain is constant in nature. Pt also with SOB but says that has been constant w/ her lung cancer. No additional complaints at this time. PMD: Dr. Isak Mark Time Seen by Provider: 10/01/16 07:34 Chief Complaint (Nursing): Back Pain History Per: Patient History/Exam Limitations: no limitations Onset/Duration Of Symptoms: Days Past Medical History Reviewed: Historical Data, Nursing Documentation, Vital Signs Vital Signs: Last Vital Signs Temp 98.8 F 10/01/16 07:53 Pulse 91 H 10/01/16 07:53 Resp 20 10/01/16 07:53 BP 132/79 10/01/16 07:53 Pulse Ox 96 10/01/16 08:27 - Medical History PMH: Anemia, Arthritis, Asthma, Cardia Arrhythmia, COPD, Diabetes, HTN, Hypercholesterolemia, Kidney Stones (CYSTO/STENT 2009), Malignancy (Lung), Pulmonary Embolism, Chronic Kidney Disease Denies: Sleep Apnea Surgical History: Coronary Stent (2004) Denies: Pacemaker - [facility] Procedures CLOSED [PERCUTANEOUS] [NEEDLE] BIOPSY OF LUNG (12/05/13) CYSTOGRAM NEC (11/28/13) DRAINAGE OF RIGHT KNEE JOINT, PERCUTANEOUS APPROACH, DIAGN (01/29/16) EXCISION OF DESCENDING COLON, ENDO, DIAGN (03/25/16) INFLUENZA VACCINATION (01/31/14) INSERT INTERCOSTAL CATH (12/05/13) INSERTION OF ENDOTRACHEAL AIRWAY INTO TRACHEA, VIA OPENING (06/28/16) OTHER LOBECTOMY OF LUNG (01/31/14) REMOVAL OF INFUSION DEVICE FROM UPPER VEIN, EXPRESSIVE MUSIC THERAPIST APPROACH (08/12/16) REMOVAL OF VAD FROM UP EXTREM SUBCU/FASCIA, OPEN APPROACH (08/12/16) RESPIRATORY VENTILATION, 24-96 CONSECUTIVE HOURS (06/28/16) RETROGRADE PYELOGRAM (11/28/13) VACCINATION NEC (12/05/13) Family History: States: Other Other Family History: Cancer - Social History Hx Tobacco Use: Yes (former smoker) Hx Alcohol Use: No Hx Substance Use: No - Immunization History Hx Tetanus Toxoid Vaccination: No Hx Influenza Vaccination: No Hx Pneumococcal Vaccination: No Review Of Systems Except As Marked, All Systems Reviewed And Found Negative. Constitutional: Negative for: Fever Cardiovascular: Positive for: Chest Pain Respiratory: Positive for: Shortness of Breath Skin: Negative for: Rash Neurological: Negative for: Weakness Physical Exam - Physical Exam Appears: Well, Non-toxic, No Acute Distress Skin: Normal Color, Warm, Dry Head: Atraumatic Eye(s): bilateral: Normal Inspection, EOMI Ear(s): Bilateral: Normal Nose: Normal Oral Mucosa: Moist Tongue: Normal Appearing Lips: Normal Appearing Teeth: Normal Dentition Gingiva: Normal Appearing Throat: Normal Neck: Normal, Normal ROM Lymphatic: Deferred Chest: Symmetrical, Tenderness (to right anterior chest) Cardiovascular: Rhythm Regular, No Murmur Respiratory: Decreased Breath Sounds (to right upper/mid lung field), No Wheezing Gastrointestinal/Abdominal: Normal Exam, Bowel Sounds, Soft, No Tenderness Rectal: Deferred Back: Normal Inspection Extremity: Normal ROM Extremity: Bilateral: Atraumatic, Normal ROM Pulses: Left Radial: Normal, Right Radial: Normal Neurological/Psych: Oriented x3, Normal Motor, Normal Sensation ED Course And Treatment - Laboratory Results Result Diagrams: 10/01/16 07:47 10/01/16 07:47 ECG: Interpreted By Me, Viewed By Me ECG Rhythm: Sinus Rhythm (NSR at 89 bpm, no ST-T wave changes, normal EKG) ECG Interpretation: Normal, No Acute Changes O2 Sat by Pulse Oximetry: 96 - Radiology CXR: Interpreted by Me (Right lung mass not changed in size from old ) Medical Decision Making Medical Decision Making: Initial Impression: Chest/Lateral Rib pain Differential diagnosis includes but is not limited to: lung cancer pain, pneumonia Initial Plan: Will check labs, give pain medication, CXR 9:07 AM - Case d/w Dr. Mark. Recommends admission to his service. Also recommends starting Zosyn. Disposition - Disposition Disposition: HOSPITALIZED Disposition Time: 08:27 Condition: FAIR - POA Present On Arrival: None - Clinical Impression Clinical Impression: Drug toxicity, Acute kidney injury, Bleeding risk due to Coumadin and aspirin, Chest pain, Dehydration Decision To Admit - Pt Status Changed To: Hospital Disposition Of: Inpatient - Admit Certification Admit to Inpatient:: After my assessment, the patient will require hospitalization for at least two midnights. This is because of the severity of symptoms shown, intensity of services needed, and/or the medical risk in this patient being treated as an outpatient. - InPatient: Physician Admission Certification:: Patient with dehydration, bleed risk/ medication toxicity - . Bed Request Type: Regular Admitting Physician: Isak Mark Patient Diagnosis: Lung cancer, Chest pain, Bleeding risk due to Coumadin and aspirin, Drug toxicity, Acute kidney injury
[2016-10-01 07:52] LABS: BASO # 0.1 K/uL (0.0-0.2); BASO % 0.5 % (0.0-2.0); EOS # 0.1 K/uL (0.0-0.7); EOS % 0.4 % (0.0-4.0); LYMPH % 14.4 % (20.0-40.0); MEAN CELL VOLUME 83.2 fL (81.0-99.0); MEAN CORPUSCULAR HEMOGLOBIN 25.3 pg (27.0-31.0); MEAN CORPUSCULAR HGB CONC 30.4 g/dL (33.0-37.0); MEAN PLATELET VOLUME 6.5 fL (7.2-11.7); MONO # 1.5 K/uL (0.0-0.8); MONO % 11.1 % (0.0-10.0); NRBC % 0.1 % (0.0-2.0); RED CELL DISTRIBUTION WIDTH 17.3 % (11.5-14.5); WHITE BLOOD COUNT 13.6 K/uL (4.8-10.8)
[2016-10-01] MEDS ORDERED: Morphine 4 MG/ML VIAL ONE (07:52)
[2016-10-01 08:03] LABS: INR 5.3
[2016-10-01 08:06] LABS: POTASSIUM 3.8 mmol/L (3.6-5.2)
[2016-10-01 08:08] LABS: BILIRUBIN,TOTAL 0.3 mg/dL (0.2-1.3)
[2016-10-01 08:09] LABS: ALB/GLOB RATIO 0.8 (1.0-2.1); CALCIUM 9.3 mg/dl (8.6-10.4); TOTAL PROTEIN 6.8 g/dL (6.3-8.3)
--- NOTE | 2016-10-01 08:14 | RAD ---
HISTORY: lung cancer pt w/ chest pain COMPARISON: 08/19/2016 FINDINGS: LUNGS: The previously referenced large right upper lobe mass with right surgical clips is similar appearing. No new lesions are seen. PLEURA: No significant pleural effusion identified, no pneumothorax apparent. CARDIOVASCULAR: Normal heart size The prior right MediPort has been removed. OSSEOUS STRUCTURES: No significant abnormalities. VISUALIZED UPPER ABDOMEN: Normal. OTHER FINDINGS: None. IMPRESSION: Large right upper lobe mass -similar-appearing. No interval lesions/interval pathology. Interval right MediPort removal
[2016-10-01 08:59] LABS: TROPONIN I 0.038 ng/mL (0.00-0.120)
[2016-10-01] MEDS ORDERED: Piperacillin/Tazobact 3.375 gm 100 ML IV STA (09:03)
[2016-10-01] MEDS ORDERED: Piperacillin/Tazobact 3.375 gm 100 ML IVPB ONE (09:10)
--- NOTE | 2016-10-01 11:21 | CP.PCM.PN ---
Subjective - Date & Time of Evaluation Date of Evaluation: 10/01/16 Time of Evaluation: 11:16 - Subjective Subjective: PT SEEN IN THE ED BY ME AND DR. CLARK. PT CURRENTLY WAITING FOR AN INPATIENT BED. ALL LABS REVIEWED WITH . ADMITTING ORDERS DONE BY PREVENTION COORDINATOR AND DR. CLARK. PT AWARE OF TREATMENT PLAN. DR. JENKINS NOTIFIED OF CONSULT. PENDING CONSULT WITH DR. LOPEZ WELL. PT IS KNOWN TO BOTH OF THEM. DVT PROPHYLAXIS ORDERED. NO FURTHER ORDERS AT THIS TIME. WILL CONTINUE TO FOLLOW PT WITH DR. CLARK. DISCUSSED PLAN W PRIMARY ED RN, IRWIN. Objective - Vital Signs/Intake and Output Vital Signs (last 24 hours): Temp Pulse Resp BP Pulse Ox 98.8 F 97 H 19 134/68 100 10/01/16 07:53 10/01/16 10:35 10/01/16 10:35 10/01/16 10:35 10/01/16 10:35 - Medications Medications: Current Medications Albuterol Sulfate (Albuterol 0.083% Inhal Elisabet (2.5 Mg/3 Ml) Ud) 2.5 mg INH QID LIVIER Digoxin (Lanoxin) 0.125 mg PO DAILY@1800 LIVIER Glipizide (Glucotrol Xl) 10 mg PO BID LIVIER Home Med (Simvastatin [Simvastatin]) 20 mg PO QPM LIVIER Sodium Chloride (Sodium Chloride 0.9%) 1,000 mls @ 100 mls/hr IV .Q10H ONE Stop: 10/01/16 17:34 Last Admin: 10/01/16 08:03 Dose: 100 mls/hr Sodium Chloride (Sodium Chloride 0.45%) 1,000 mls @ 80 mls/hr IV .[id number] LIVIER Insulin Aspart (Novolog) 0 unit SC ACHS LIVIER PRN Reason: Protocol Metoprolol Tartrate (Lopressor) 50 mg PO BID LIVIER Montelukast Sodium (Singulair) 10 mg PO HS LIVIER Oxycodone/Acetaminophen (Percocet 5/325 Mg Tab) 1 tab PO Q6H PRN PRN Reason: Pain, moderate (4-7) Stop: 10/04/16 11:09 Pantoprazole Sodium (Protonix Ec Tab) 40 mg PO DAILY LIVIER Fluticasone/Salmeterol (Advair Diskus 250/50) 1 puff INH RQ12 LIVIER - Labs Labs: PT 64.2 SECONDS (9.7-12.2) H* 10/01/16 07:47 INR 5.3 10/01/16 07:47 APTT 51 SECONDS (21-34) H 10/01/16 07:47
[2016-10-01] MEDS: Sodium Chloride 0.45% 1,000 ML IV SCH (11:29)
[2016-10-01] MEDS: (Novolog) Insulin Aspart, Recombinant 100 u/ml 10 ml vial SC SCH ×3 (13:12→21:37)
[2016-10-01] MEDS: Albuterol 0.083% Inhal Sol (2.5 mg/3 mL) UD INH SCH ×3 (13:15→21:57)
[2016-10-01 13:21] LABS: RBC URINE 3 /hpf (0-3); URINE BILIRUBIN NEGATIVE (NEGATIVE); URINE BLOOD NEGATIVE (NEGATIVE); URINE COLOR Straw (YELLOW); URINE GLUCOSE (UA) NORMAL (Normal); URINE KETONE NEGATIVE (NEGATIVE); URINE LEUKOCYTE ESTERASE NEG Leu/uL (Negative); URINE PROTEIN 1+ mg/dL (NEGATIVE); URINE UROBILINOGEN NORMAL mg/dL (0.2-1.0); WBC URINE 3 /hpf (0-5)
[2016-10-01] MEDS ORDERED: Albuterol 0.083% Inhal Sol (2.5 mg/3 mL) UD ONE ×2 (13:22→17:24)
[2016-10-01] MEDS ORDERED: Oxycodone/Acetaminophen 5/325 mg Tab ONE (16:47)
[2016-10-01] MEDS: Oxycodone/Acetaminophen 5/325 mg Tab PO PRN (16:48)
[2016-10-01] MEDS: Digoxin 125 mcg (0.125 mg) Tab PO SCH (17:55)
[2016-10-01] MEDS: GlipiZIDE 10 mg SR Tab PO SCH (17:55)
--- NOTE | 2016-10-02 00:17 | CON ---
DATE: 10/01/2016 REASON FOR CONSULTATION: Sinus tachycardia as well as shortness of breath. 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 Has multiple admissions for pneumonia and exacerbation of chronic obstructive lung disease who was admitted this time because of right lateral rib pain that increases with respiration. The patient denies any productive cough or hemoptysis. The patient denies any recent syncope or fall. SOCIAL HISTORY: The patient is a former smoker. MEDICATIONS: The patient is currently on albuterol inhaler q.i.d., Advair 1 puff q. 12 hours, glipizide 10 mg twice a day, digoxin 0.125 mg daily, Lopressor 50 mg twice a day, NovoLog insulin, Protonix 40 once a day, Singulair 10 mg at bedtime, normal saline at 80 mL an hour. REVIEW OF SYSTEMS: No reported seizures, no reported hypotension and no reported *------*. PHYSICAL EXAMINATION GENERAL: The patient is an elderly female who does not appear to be in acute distress. VITAL SIGNS: Blood pressure 147/72, heart rate 109, respirations 20, temperature 98.8. HEENT: Pale conjunctivae. CHEST: Absent breath sounds over the right base. HEART: S1 and S2 regular. ABDOMEN: Soft. EXTREMITIES: No edema. No calf tenderness. LABORATORY DATA: On admission, sodium 139, potassium 3.8, chloride 102, CO2 25, glucose 106, BUN 27, creatinine 1.6. INR is 5.3, PT 64.2, PTT 61. Hemoglobin and hematocrit 9.7 and 32.0, white count and platelet count 15.6 and 392,000. Chest x-ray revealed significant right upper lobe lung mass. EKG revealed sinus rhythm at rate of 89. ASSESSMENT: 1. Recurrent right lung carcinoma. 2. Anemia. 3. Chronic renal insufficiency. 4. Chronic obstructive lung disease. 5. History of pulmonary embolism in the past. *------* scan revealed low probability for pulmonary embolism. 6. Iatrogenic coagulopathy. RECOMMENDATIONS: Admit the patient to telemetry. Continue current Lopressor 50 mg twice a day, half normal saline infusion at 60 mL an hour. Continue current bronchodilators. Continue Crestor 5 mg once a day. The patient is off all anticoagulation and antiplatelets from now. I will obtain serum digoxin level. Parrish Bailey MD
[2016-10-02] MEDS: Oxycodone/Acetaminophen 5/325 mg Tab PO PRN ×3 (04:52→16:58)
[2016-10-02] MEDS: Sodium Chloride 0.45% 1,000 ML IV SCH ×2 (04:57→16:03)
--- NOTE | 2016-10-02 05:41 | HP ---
HISTORY OF PRESENT ILLNESS: The patient is a 71-year-old female with history of lung CA, hypertension, past history of pulmonary embolism x2, and diabetes. The patient was recently discharged from rehab from [facility]. The patient came today complaining of pain to the right side of the chest, significant also with shortness of breath. The patient was evaluated in the emergency room and the patient has received medications, but with no major relief. So, the patient was admitted. ALLERGIES: THE PATIENT HAS NO KNOWN ALLERGIES. PAST MEDICAL HISTORY: History of anemia, asthma, cardiac arrhythmia, COPD, diabetes, hypertension, kidney stone, pulmonary embolism, CA of the lung, and CKD. PAST SURGICAL HISTORY: The patient has a coronary stent. SOCIAL HISTORY: The patient lives with her family. Has history of smoking, heavy smoker, but has stopped since 2 years. FAMILY HISTORY: No major disease. REVIEW OF SYSTEMS: RESPIRATORY SYSTEM: Shortness of breath *------*. CARDIOVASCULAR: The patient is having some right-sided chest pain, increased with motion. GI: Decreased appetite, but no constipation. : No dysuria. NEUROLOGIC: The patient is very weak. PHYSICAL EXAMINATION: GENERAL: The patient is alert, awake, and oriented. VITAL SIGNS: The patient has blood pressure 111/60, pulse 90, greater than 100 at time, respirations 20. NECK: Supple. LUNGS: Had some rales bilaterally and decreased breath sounds in the left side. HEART: Regular rate and rhythm. ABDOMEN: Soft and nontender. Positive bowel sounds. EXTREMITIES: There is no edema. LABORATORY DATA: The patient had blood test done; WBC is 13.6, hemoglobin 9.7, hematocrit 32, and platelets 392. Chemistry; sodium 139, potassium 3.8, chloride 102, bicarb 25, BUN 27, creatinine 136, glucose 106, calcium 9.3. AST 29, ALT 51, alkaline phosphatase 116. Troponin is 0.038. Albumin 3, bilirubin 3.7, lipase is 119. The patient had a chest x-ray. The chest x-ray showed a large right upper lobe mass with right surgical clips *------*. No new lesion seen. IMPRESSION: So, the patient admitted with diagnoses of; 1. Shortness of breath. 2. Chronic obstructive pulmonary disease and pleuritis. 3. Cancer of the lung. 4. History of pulmonary embolism. 5. Hypertension. 6. Diabetes. The patient will have a consult with Dr. Maria L Casillas, pulmonary and Dr. Bailey, cardiology. Isak Mark MD
[2016-10-02 07:24] LABS: MEAN CELL VOLUME 82.5 fL (81.0-99.0); MEAN CORPUSCULAR HGB CONC 30.3 g/dL (33.0-37.0); MEAN PLATELET VOLUME 6.7 fL (7.2-11.7); RED CELL DISTRIBUTION WIDTH 17.4 % (11.5-14.5); WHITE BLOOD COUNT 15.3 K/uL (4.8-10.8)
[2016-10-02 07:27] LABS: INR 2.5
[2016-10-02] MEDS: Fluticasone-Salmeterol 250-50mcg Diskus INH SCH ×2 (07:35→19:35)
[2016-10-02] MEDS: Albuterol 0.083% Inhal Sol (2.5 mg/3 mL) UD INH SCH ×4 (07:35→19:34)
[2016-10-02 07:44] LABS: POTASSIUM 3.9 mmol/L (3.6-5.2)
[2016-10-02 07:48] LABS: CALCIUM 9.5 mg/dl (8.6-10.4)
[2016-10-02] MEDS: (Novolog) Insulin Aspart, Recombinant 100 u/ml 10 ml vial SC SCH ×4 (08:00→22:30)
[2016-10-02] MEDS: GlipiZIDE 10 mg SR Tab PO SCH ×2 (09:06→18:06)
[2016-10-02] MEDS: Pantoprazole 40 mg EC Tab PO SCH (09:55)
--- NOTE | 2016-10-02 13:48 | CARD ---
APPROVED REPORT EKG Measurement Heart [id number] <Conclusion> Normal sinus rhythm Normal ECG
[2016-10-02] MEDS: Digoxin 125 mcg (0.125 mg) Tab PO SCH (18:05)
--- NOTE | 2016-10-02 21:06 | PN ---
DATE: 10/02/2016 SUBJECTIVE: The patient is experiencing shortness of breath as well as cough. She denies any retrosternal chest pain. PHYSICAL EXAMINATION VITAL SIGNS: Blood pressure 102/61, heart rate 120, temperature 98.6, respirations 20. HEENT: Pale conjunctivae. CHEST: Absent breath sounds over the right base. HEART: S1 and S2 regular. No gallop or rub. ABDOMEN: Soft. EXTREMITIES: No edema. No calf tenderness. LABORATORY DATA: Today's INR is 2.5, significant improvement compared to yesterday. Hemoglobin and hematocrit 9.1 and 30.0, white count and platelet count of 16.3 and 350,000. Digoxin level is 1.3. Sodium was 130, potassium 3.9, chloride 99, CO2 of 24, glucose 74, BUN 18, creatinine 1.4. ASSESSMENT: 1. Sinus tachycardia, with physiological response to the patient's current respiratory condition. 2. 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 3. Chronic obstructive lung disease. 4. Chronic *------* insufficiency. 5. Hyponatremia. 6. Improved iatrogenic coagulopathy. CONDITIONS: Resume Coumadin *------* mg orally daily, continue Crestor 5 mg once a day, and digoxin 0.125 mg once a day, Lopressor 50 mg twice a day, Protonix 40 mg once a day, and half normal saline at 80 mL per hour. Parrish Bailey MDDD: 10/02/2016 15:31:29
[2016-10-03] MEDS: Sodium Chloride 0.45% 1,000 ML IV SCH ×2 (03:32→08:05)
[2016-10-03] MEDS: Oxycodone/Acetaminophen 5/325 mg Tab PO PRN ×2 (05:56→13:23)
[2016-10-03] MEDS: Fluticasone-Salmeterol 250-50mcg Diskus INH SCH ×2 (07:48→20:05)
[2016-10-03] MEDS: Albuterol 0.083% Inhal Sol (2.5 mg/3 mL) UD INH SCH ×4 (07:48→19:47)
[2016-10-03 08:00] LABS: MEAN CELL VOLUME 82.4 fL (81.0-99.0); MEAN CORPUSCULAR HEMOGLOBIN 25.3 pg (27.0-31.0); MEAN CORPUSCULAR HGB CONC 30.7 g/dL (33.0-37.0); MEAN PLATELET VOLUME 6.5 fL (7.2-11.7); RED CELL DISTRIBUTION WIDTH 17.3 % (11.5-14.5); WHITE BLOOD COUNT 14.2 K/uL (4.8-10.8)
[2016-10-03 08:01] LABS: POTASSIUM 4.1 mmol/L (3.6-5.2)
[2016-10-03 08:05] LABS: CALCIUM 9.2 mg/dl (8.6-10.4)
[2016-10-03] MEDS: (Novolog) Insulin Aspart, Recombinant 100 u/ml 10 ml vial SC SCH ×4 (09:15→22:25)
[2016-10-03] MEDS: GlipiZIDE 10 mg SR Tab PO SCH ×2 (10:50→17:07)
[2016-10-03] MEDS: Pantoprazole 40 mg EC Tab PO SCH (10:50)
--- NOTE | 2016-10-03 14:13 | PN ---
SUBJECTIVE: The patient is experiencing a sort of chest discomfort that she is tachycardic on the monitor. No shortness of breath. On nasal O2. PHYSICAL EXAMINATION: VITAL SIGNS: Blood pressure of 123/73, heart rate of 112, temperature of 99.5, and respirations of 20. HEENT: Pale conjunctivae. CHEST: Absent breath sounds over the right base. HEART: S1 and S2 regular. EXTREMITIES: No edema. No calf tenderness. LABORATORY DATA: Hemoglobin and hematocrit are 8.3 and 27, white count is 14.2, and platelet count of 308,000. Today, BUN and creatinine are 14 and 1.4, sodium is normal at 125, and glucose is 170. Today's INR is 2.0 ASSESSMENT: 1. 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 2. Hypertension. 3. Sinus tachycardia. 4. History of pulmonary embolism in the past. 5. Chronic renal insufficiency. 6. Hyponatremia. 7. Chronic obstructive lung disease. RECOMMENDATIONS: Continue current bronchodilators including Advair and albuterol. Continue Crestor at 5 mg once a day, glipizide at 10 mg twice a day, Lanoxin 0.125 mg daily, and Lopressor 50 mg twice a day. I will order Coumadin 3 mg p.o. today. Parrish Bailey MD
[2016-10-03] MEDS: Sodium Chloride 0.9% 1,000 ML IV SCH (14:23)
[2016-10-03] MEDS: Digoxin 125 mcg (0.125 mg) Tab PO SCH (17:08)
[2016-10-04] MEDS: Oxycodone/Acetaminophen 5/325 mg Tab PO PRN ×3 (01:28→18:50)
[2016-10-04] MEDS: Sodium Chloride 0.9% 1,000 ML IV SCH ×2 (02:40→15:35)
[2016-10-04] MEDS: (Novolog) Insulin Aspart, Recombinant 100 u/ml 10 ml vial SC SCH ×4 (07:47→21:54)
[2016-10-04 07:50] LABS: BILIRUBIN,TOTAL 0.4 mg/dL (0.2-1.3); CALCIUM 9.3 mg/dl (8.6-10.4); POTASSIUM 4.1 mmol/L (3.6-5.2); TOTAL PROTEIN 5.8 g/dL (6.3-8.3)
[2016-10-04] MEDS: Fluticasone-Salmeterol 250-50mcg Diskus INH SCH ×2 (07:53→19:18)
[2016-10-04] MEDS: Albuterol 0.083% Inhal Sol (2.5 mg/3 mL) UD INH SCH ×4 (07:53→19:17)
[2016-10-04 07:55] LABS: BASO % 0.2 % (0.0-2.0); EOS # 0.1 K/uL (0.0-0.7); EOS % 0.7 % (0.0-4.0); HEMATOCRIT 28.6 % (34.0-47.0); LYMPH # 1.6 K/uL (1.0-4.3); LYMPH % 14.9 % (20.0-40.0); MEAN CELL VOLUME 82.8 fL (81.0-99.0); MEAN CORPUSCULAR HEMOGLOBIN 25.3 pg (27.0-31.0); MEAN CORPUSCULAR HGB CONC 30.5 g/dL (33.0-37.0); MEAN PLATELET VOLUME 6.9 fL (7.2-11.7); MONO # 1.3 K/uL (0.0-0.8); MONO % 12.6 % (0.0-10.0); RED CELL DISTRIBUTION WIDTH 17.6 % (11.5-14.5); WHITE BLOOD COUNT 10.5 K/uL (4.8-10.8)
[2016-10-04 08:08] LABS: ALB/GLOB RATIO 0.8 (1.0-2.1)
[2016-10-04] MEDS: Pantoprazole 40 mg EC Tab PO SCH (09:47)
[2016-10-04] MEDS: GlipiZIDE 10 mg SR Tab PO SCH ×2 (09:48→17:23)
--- NOTE | 2016-10-04 15:41 | PN ---
DATE: SUBJECTIVE: The patient is still experiencing . She denies any chest pain. She is still in sinus tachycardia. PHYSICAL EXAMINATION: VITAL SIGNS: Blood pressure 101/74, heart rate 107, temperature 98.7, and respiration 20. HEENT: Pale conjunctivae. CHEST: Diminished breath sounds over the right base. HEART: S1 and S2 regular. ABDOMEN: Soft. EXTREMITIES: No edema. No calf tenderness. LABORATORY DATA: Hemoglobin and hematocrit are 8.7 and 28.6, white count and platelet count are 10.5 and 327,000. Today's BUN and creatinine are 15 and 1.4, glucose of 116. The rest of SMA-7 is within normal limits. Today's INR is 2.0. ASSESSMENT: 1. Recurrent lung squamous cell carcinoma. 2. History of pulmonary embolism in the past. 3. Anemia. 4. Improved renal insufficiency. 5. Sinus tachycardia is a physiologic response to the patient's current respiratory status. RECOMMENDATIONS: Continue current bronchodilators. Continue Crestor 5 mg once a day, glipizide at 10 mg twice a day, Lanoxin 0.125 mg once a day, Lopressor 50 mg twice a day and we will administer Coumadin 5 mg only today. Parrish Bailey MD
[2016-10-04] MEDS: Digoxin 125 mcg (0.125 mg) Tab PO SCH (17:19)
--- NOTE | 2016-10-04 18:21 | PN ---
SUBJECTIVE: The patient is alert and awake, in no acute distress. He has had chest pain, but improving. He has no constipation or no abdominal pain. OBJECTIVE: VITAL SIGNS: Blood pressure is 131/74, pulse rate 87, and respirations 20, temperature is 98.7. NECK: Supple. LUNGS: There are some rales bilaterally and decreased breath sounds in the left side. HEART: Regular rate and rhythm. ABDOMEN: Soft and nontender. No palpable mass. EXTREMITIES: There is no edema. IMPRESSION: *------* PLAN: The patient will have physical therapy and also we are going to *------* Isak Mark MD
--- NOTE | 2016-10-05 04:18 | PN ---
DATE: 10/02/2016 SUBJECTIVE: Today, patient is more alert and awake and having less pain to the right side of the chest and shortness of breath on exertion for congestive cough. PHYSICAL EXAMINATION GENERAL: Text. VITAL SIGNS: Blood pressure is 108/66, pulse is high from 100 to 120, respirations are 20 and temperature 98.9. HEENT: Head is normocephalic. NECK: Supple. LUNGS: Rather decreasing breath sounds in the right side and some rales noted. HEART: Tachycardic most of the time. ABDOMEN: Soft, nontender, positive bilaterally. EXTREMITIES: There is no edema. LABORATORY DATA: The labs show that the WBC was 16.3, hemoglobin 9.1, hematocrit 33, and platelet is 360. Chemistry: Sodium 130, potassium 3.9, chloride 99, bicarbonate is 24, BUN 18, creatinine 1.4, glucose 130. PLAN: Consult Dr. Bailey, cardiology is appreciated. We are going to continue antiplatelet therapy. We are going to continue to give the patient 5 mg of prednisone and we will control the COPD with medications. Isak Mark MD
[2016-10-05 06:15] LABS: BASO % 0.2 % (0.0-2.0); EOS % 0.3 % (0.0-4.0); HEMATOCRIT 29.6 % (34.0-47.0); LYMPH # 1.4 K/uL (1.0-4.3); LYMPH % 11.3 % (20.0-40.0); MEAN CELL VOLUME 82.4 fL (81.0-99.0); MEAN CORPUSCULAR HGB CONC 30.4 g/dL (33.0-37.0); MEAN PLATELET VOLUME 6.9 fL (7.2-11.7); MONO % 8.2 % (0.0-10.0); RED CELL DISTRIBUTION WIDTH 17.6 % (11.5-14.5); WHITE BLOOD COUNT 12.6 K/uL (4.8-10.8)
[2016-10-05 06:20] LABS: INR 2.2
[2016-10-05 07:21] LABS: POTASSIUM 4.5 mmol/L (3.6-5.2)
[2016-10-05 07:23] LABS: BILIRUBIN,TOTAL 0.4 mg/dL (0.2-1.3)
[2016-10-05 07:24] LABS: ALB/GLOB RATIO 0.8 (1.0-2.1); CALCIUM 10.1 mg/dl (8.6-10.4); TOTAL PROTEIN 5.9 g/dL (6.3-8.3)
--- NOTE | 2016-10-05 07:58 | PN ---
DATE: 10/03/2016 SUBJECTIVE: Today, the patient is alert and awake, but short of breath on exertion, *------* effort and also *------*right side of the chest and positive nonproductive cough. PHYSICAL EXAMINATION: VITAL SIGNS: The patient has a blood pressure of 118/75, pulse is 113, respirations 20. NECK: Supple. No JVD. LUNGS: Reveals some rales at the bases and decreased breath sounds on the right side of the chest. HEART: Tachycardiac. ABDOMEN: Soft. Positive bowel sounds, nontender. EXTREMITIES: There is no edema. LABORATORY DATA: Blood test showed that the WBC is 14.2, hemoglobin 8.3, hematocrit 27, and platelet is 208. Chemistry: Sodium 125, potassium 4.1, chloride is 93, BUN 14, creatinine 1.4, glucose of 70, calcium 9.2. ASSESSMENT AND PLAN: To consider *------* for chemotherapy. I will request the patient to go to rehab and also to do physical therapy. Isak Mark MD
[2016-10-05] MEDS: (Novolog) Insulin Aspart, Recombinant 100 u/ml 10 ml vial SC SCH ×4 (08:00→21:29)
[2016-10-05] MEDS: Fluticasone-Salmeterol 250-50mcg Diskus INH SCH ×2 (08:08→19:25)
[2016-10-05] MEDS: Albuterol 0.083% Inhal Sol (2.5 mg/3 mL) UD INH SCH ×4 (08:08→19:24)
[2016-10-05] MEDS: Pantoprazole 40 mg EC Tab PO SCH (09:20)
[2016-10-05] MEDS: GlipiZIDE 10 mg SR Tab PO SCH ×2 (09:22→17:42)
[2016-10-05 10:17] LABS: RBC URINE 21 /hpf (0-3); URINE BACTERIA RARE (<OCC); URINE BILIRUBIN NEGATIVE (NEGATIVE); URINE BLOOD 1+ (NEGATIVE); URINE COLOR Yellow (YELLOW); URINE GLUCOSE (UA) NORMAL (Normal); URINE KETONE NEGATIVE (NEGATIVE); URINE LEUKOCYTE ESTERASE 2+ Leu/uL (Negative); URINE PROTEIN 1+ mg/dL (NEGATIVE); URINE UROBILINOGEN NORMAL mg/dL (0.2-1.0); WBC URINE 36 /hpf (0-5)
[2016-10-05] MEDS: Piperacill/Tazo 3.375gm in Dex 3.375 GM/50 ML BAG IVPB SCH ×3 (10:53→21:21)
--- NOTE | 2016-10-05 12:58 | PN ---
SUBJECTIVE: The patient denies any chest pain. She is having mild productive cough, no hemoptysis. PHYSICAL EXAMINATION: VITAL SIGNS: Blood pressure 116/62, heart rate 132, temperature 100 degree Fahrenheit, and respiration 20. HEENT: Pale conjunctivae. CHEST: Diminished breath sounds over the right base. HEART: S1 and S2 regular. ABDOMEN: Soft. EXTREMITIES: No edema. LABORATORY DATA: Hemoglobin and hematocrit are 9 and 29.6, white count and platelet count are 12.6 and 329,000. Today's SMA-7 is within normal limits. *------* creatinine of 1.3, INR is 2.2. ASSESSMENT: 1. 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 2. Chronic renal insufficiency. 3. Anemia. 4. Fever. 5. *------* sinus tachycardia. The blood culture so far is negative after 3 days. RECOMMENDATIONS: Continue current bronchodilators. Continue IV ciprofloxacin, continue Crestor 5 mg once a day, Lanoxin 0.125 mg daily, Lopressor 50 mg twice a day, Coumadin will be administered at 5 mg today. Obtain full EKG. Parrish Bailey MD
--- NOTE | 2016-10-05 13:10 | RAD ---
HISTORY: febrile, r/o pneumonia COMPARISON: Chest x-ray performed 10/01/16 TECHNIQUE: Chest, one view. FINDINGS: LUNGS: The previously referenced large right upper lobe mass with right surgical clips is similar in appearance. PLEURA: No significant pleural effusion identified. No definite pneumothorax . CARDIOVASCULAR: The cardiomediastinal silhouette appears within normal limits of size. OSSEOUS STRUCTURES: No acute osseous abnormality identified. VISUALIZED UPPER ABDOMEN: Unremarkable. OTHER FINDINGS: None. IMPRESSION: No significant interval change appreciated. Findings as above.
[2016-10-05] MEDS: Ciprofloxacin 200mg/100ml D5W 100 ML IVPB SCH (13:15)
[2016-10-05] MEDS: Sodium Chloride 0.9% 1,000 ML IV SCH ×2 (14:28→16:15)
[2016-10-05] MEDS: Oxycodone/Acetaminophen 5/325 mg Tab PO PRN ×2 (15:37→21:26)
[2016-10-05] MEDS: Digoxin 125 mcg (0.125 mg) Tab PO SCH (17:42)
--- NOTE | 2016-10-05 18:23 | CP.PCM.CON ---
History of Present Illness - History of Present Illness History of Present Illness: CHART REVIEWED, PT SEEN AND EXAMINED., NOTIFIED TODAY 71 YO B FEMALE WITH A HX RIGHT LUNG CA, S/P CHEMO AND RT AND SURG,.,WITH RECURRENCE, COPD, CHRONIC RESP FAILURE +HOME O2 X FEW MONTHS, S/P PE X 2., GOUT, ADM 10/01/16 WITH INCREASED MOD SOB WITH MIN EXERTION X 1 DAY. +COUGH NO HEMOPTYSIS., NO FEVER . AMBULATES AT HOME. FA[facility] APPETITE. NO RECENT CHEMO. NOT USING HOME NEB. Review of Systems - Review of Systems All systems: reviewed and no additional remarkable complaints except - Constitutional Constitutional: Fever - EENT Eyes: absent: Change in Vision Ears: absent: Ear Pain Nose/Mouth/Throat: absent: Epistaxis, Sinus Pain, Sinus Pressure - Cardiovascular Cardiovascular: Chest Pain, Chest Pain at Rest, Dyspnea - Respiratory Respiratory: Cough, Dyspnea, Dyspnea on Exertion. absent: Hemoptysis, Wheezing , Excessive Mucous Production - Gastrointestinal Gastrointestinal: absent: Abdominal Pain - Genitourinary Genitourinary: absent: Difficulty Urinating, Freq UTI - Musculoskeletal Musculoskeletal: absent: Back Pain - Integumentary Integumentary: absent: Rash - Neurological Neurological: absent: Confusion, Focal Weakness - Psychiatric Psychiatric: absent: Confusion - Endocrine Endocrine: absent: Change in Body Appearance - Hematologic/Lymphatic Hematologic: absent: Easy Bleeding Past Patient History - Infectious Disease Hx of Infectious Diseases: None - Tetanus Immunizations Tetanus Immunization: Unknown - Past Medical History & Family History Past Medical History?: Yes Past Family History: Reviewed and not pertinent - Past Social History Smoking Status: Former Smoker Alcohol: None Drugs: Denies - CARDIAC Hx Cardiac Disorders: Yes (Cardiac arrhythmia) Hx Hypercholesterolemia: Yes Hx Hypertension: Yes - PULMONARY Hx Chronic Obstructive Pulmonary Disease (COPD): Yes Hx Emphysema: Yes Hx Lung Cancer: Yes Hx Pulmonary Embolism: Yes - NEUROLOGICAL Hx Neurological Disorder: No Hx Paralysis: No - HEENT Hx HEENT Problems: Yes Hx Epistaxis: Yes Other/Comment: eye glasses for reading - RENAL Hx Chronic Kidney Disease: Yes Hx Kidney Stones: Yes (CYSTO/STENT 2009) - ENDOCRINE/METABOLIC Hx Diabetes Mellitus Type 2: Yes - HEMATOLOGICAL/ONCOLOGICAL Hx Anemia: Yes Hx Cancer: Yes (RIGHT LUNG CA) - INTEGUMENTARY Hx Dermatological Problems: No - MUSCULOSKELETAL/RHEUMATOLOGICAL Hx Arthritis: Yes - GASTROINTESTINAL Hx Gastrointestinal Disorders: Yes Hx Constipation: Yes - GENITOURINARY/GYNECOLOGICAL Hx Genitourinary Disorders: Yes - PSYCHIATRIC Hx Psychophysiologic Disorder: No Hx Substance Use: No - SURGICAL HISTORY Hx Surgeries: Yes Hx Coronary Stent: Yes (2004) - ANESTHESIA Hx Anesthesia: Yes Hx Anesthesia Reactions: No Hx Malignant Hyperthermia: No Meds Home Medications: Home Medication List Medication Instructions Recorded Confirmed Type Acetaminophen [Tylenol 325mg tab] 650 mg PO Q6 PRN tab 10/09/16 Rx Insulin Aspart, Recombinant 0 unit SC ACHS unit 10/09/16 Rx [Novolog] Albuterol/Ipratropium [Duoneb 3 3 ml INH RQ6 10/14/16 Rx mg/0.5 mg (3 ml) UD] Docusate Sodium/Sennosides A 2 tab PO QPM tab 10/14/16 Rx [Senokot S 50 MG-8.6 MG] Fluconazole [Diflucan] 200 mg PO DAILY #12 tab 10/14/16 Rx Piperacill/Tazo 3.375gm in Dex 3.375 gm IVPB Q8 #19 bag 10/14/16 Rx [Zosyn 3.375 Gm IV] Saccharomyces Boulardii [Florastor] 250 mg PO BID #20 capsule 10/14/16 Rx Warfarin [Coumadin] 3 mg PO 1800 tab 10/14/16 Rx Allergies/Adverse Reactions: Allergies Allergy/AdvReac Type Severity Reaction Status Date / Time No Known Allergies Allergy Verified 10/01/16 07:32 - Medications Medications: Current Medications Acetaminophen (Tylenol 325mg Tab) 650 mg PO Q6 PRN PRN Reason: Headache Last Admin: 10/04/16 17:20 Dose: 650 mg Albuterol Sulfate (Albuterol 0.083% Inhal Elisabet (2.5 Mg/3 Ml) Ud) 2.5 mg INH RQID [facility] Last Admin: 10/05/16 12:35 Dose: 2.5 mg Digoxin (Lanoxin) 0.125 mg PO DAILY@1800 [facility] Last Admin: 10/05/16 17:42 Dose: 0.125 mg Glipizide (Glucotrol Xl) 10 mg PO BID [facility] Last Admin: 10/05/16 17:42 Dose: 10 mg Sodium Chloride (Sodium Chloride 0.9%) 1,000 mls @ 80 mls/hr IV .[id number] [facility] Last Admin: 10/05/16 14:28 Dose: 80 mls/hr Piperacillin Sod/Tazobactam Sod (Zosyn 3.375 Gm Iv Premix) 3.375 gm in 50 mls @ 100 mls/hr IVPB Q8 [facility] Last Admin: 10/05/16 15:29 Dose: 100 mls/hr Ciprofloxacin (Cipro 200mg/100ml D5w) 100 mls @ 67 mls/hr IVPB Q12H [facility] Last Admin: 10/05/16 13:15 Dose: 67 mls/hr Insulin Aspart (Novolog) 0 unit SC ACHS [facility] PRN Reason: Protocol Last Admin: 10/05/16 17:43 Dose: 3 unit Metoprolol Tartrate (Lopressor) 50 mg PO BID [facility] Last Admin: 10/05/16 17:43 Dose: 50 mg Montelukast Sodium (Singulair) 10 mg PO [facility] Last Admin: 10/04/16 21:23 Dose: 10 mg Oxycodone/Acetaminophen (Percocet 5/325 Mg Tab) 1 tab PO Q6H PRN PRN Reason: Pain, severe (8-10) Stop: 10/07/16 18:46 Last Admin: 10/05/16 15:37 Dose: 1 tab Pantoprazole Sodium (Protonix Ec Tab) 40 mg PO DAILY [facility] Last Admin: 10/05/16 09:20 Dose: 40 mg Rosuvastatin Calcium (Crestor) 5 mg PO HS [facility] Last Admin: 10/04/16 21:23 Dose: 5 mg Fluticasone/Salmeterol (Advair Diskus 250/50) 1 puff INH RQ12 [facility] Last Admin: 10/05/16 08:08 Dose: 1 puff Physical Exam - Constitutional Appears: No Acute Distress - Head Exam Head Exam: ATRAUMATIC, NORMOCEPHALIC - Eye Exam Eye Exam: EOMI, Normal appearance - ENT Exam ENT Exam: Mucous Membranes Moist - Neck Exam Neck exam: Negative for: Tenderness - Respiratory Exam Respiratory Exam: Decreased Breath Sounds. absent: Wheezes - Cardiovascular Exam Cardiovascular Exam: RRR, +S1, +S2 - GI/Abdominal Exam GI & Abdominal Exam: Soft. absent: Tenderness - Rectal Exam Rectal Exam: Deferred - Extremities Exam Extremities exam: Negative for: calf tenderness, pedal edema - Back Exam Back exam: absent: CVA tenderness (L), CVA tenderness (R) - Neurological Exam Neurological exam: Alert, CN II-XII Intact, Oriented x3 - Psychiatric Exam Psychiatric exam: Normal Mood Results - Vital Signs Recent Vital Signs: Last Vital Signs Temp 98.2 F 10/05/16 15:10 Pulse 82 10/05/16 15:37 Resp 20 10/05/16 15:10 BP 103/64 10/05/16 15:37 Pulse Ox 100 10/05/16 15:10 - Labs Result Diagrams: 10/14/16 05:53 10/14/16 05:53 Labs: Laboratory Results - last 24 hr 10/04/16 10/04/16 10/05/16 21:33 21:53 06:00 WBC RBC Hgb Hct MCV MCH MCHC RDW Plt Count MPV Neut % (Auto) Lymph % (Auto) [place] % (Auto) Eos % (Auto) Baso % (Auto) Neut # Lymph # [place] # Eos # Baso # PT 26.0 H INR 2.2 Sodium Potassium Chloride Carbon Dioxide Anion Gap BUN Creatinine Est GFR ( Amer) Est GFR (Non-Af Amer) POC Glucose (mg/dL) 62 L 71 Random Glucose Calcium Total Bilirubin AST ALT Alkaline Phosphatase Total Protein Albumin Globulin Albumin/Globulin Ratio Urine Color Urine Clarity Urine pH Ur Specific [place] Urine Protein Urine Glucose (UA) Urine Ketones Urine Blood Urine Nitrate Urine Bilirubin Urine Urobilinogen Ur Leukocyte Esterase Urine WBC (Auto) Urine RBC (Auto) Ur Squamous Epith Cells Urine Bacteria 10/05/16 10/05/16 10/05/16 06:00 06:00 06:38 WBC 12.6 H RBC 3.59 L Hgb 9.0 L Hct 29.6 L MCV 82.4 MCH 25.0 L MCHC 30.4 L RDW 17.6 H Plt Count 329 MPV 6.9 L Neut % (Auto) 80.0 H Lymph % (Auto) 11.3 L [place] % (Auto) 8.2 Eos % (Auto) 0.3 Baso % (Auto) 0.2 Neut # 10.1 H Lymph # 1.4 [place] # 1.0 H Eos # 0.0 Baso # 0.0 PT INR Sodium 136 Potassium 4.5 Chloride 102 Carbon Dioxide 26 Anion Gap 13 BUN 12 Creatinine 1.3 H Est GFR ( Amer) 49 Est GFR (Non-Af Amer) 40 POC Glucose (mg/dL) 68 Random Glucose 73 Calcium 10.1 Total Bilirubin 0.4 AST 50 H ALT 62 H Alkaline Phosphatase 89 Total Protein 5.9 L Albumin 2.5 L Globulin 3.3 Albumin/Globulin Ratio 0.8 L Urine Color Urine Clarity Urine pH Ur Specific [place] Urine Protein Urine Glucose (UA) Urine Ketones Urine Blood Urine Nitrate Urine Bilirubin Urine Urobilinogen Ur Leukocyte Esterase Urine WBC (Auto) Urine RBC (Auto) Ur Squamous Epith Cells Urine Bacteria 10/05/16 10/05/16 10/05/16 07:19 10:02 11:48 WBC RBC Hgb Hct MCV MCH MCHC RDW Plt Count MPV Neut % (Auto) Lymph % (Auto) [place] % (Auto) Eos % (Auto) Baso % (Auto) Neut # Lymph # [place] # Eos # Baso # PT INR Sodium Potassium Chloride Carbon Dioxide Anion Gap BUN Creatinine Est GFR ( Amer) Est GFR (Non-Af Amer) POC Glucose (mg/dL) 126 H 135 H Random Glucose Calcium Total Bilirubin AST ALT Alkaline Phosphatase Total Protein Albumin Globulin Albumin/Globulin Ratio Urine Color Yellow Urine Clarity Hazy Urine pH 6.0 Ur Specific [place] 1.009 Urine Protein 1+ H Urine Glucose (UA) Normal Urine Ketones Negative Urine Blood 1+ H Urine Nitrate Negative Urine Bilirubin Negative Urine Urobilinogen Normal Ur Leukocyte Esterase 2+ H Urine WBC (Auto) 36 H Urine RBC (Auto) 21 H Ur Squamous Epith Cells 11 H Urine Bacteria Rare 10/05/16 16:53 WBC RBC Hgb Hct MCV MCH MCHC RDW Plt Count MPV Neut % (Auto) Lymph % (Auto) [place] % (Auto) Eos % (Auto) Baso % (Auto) Neut # Lymph # [place] # Eos # Baso # PT INR Sodium Potassium Chloride Carbon Dioxide Anion Gap BUN Creatinine Est GFR ( Amer) Est GFR (Non-Af Amer) POC Glucose (mg/dL) 217 H Random Glucose Calcium Total Bilirubin AST ALT Alkaline Phosphatase Total Protein Albumin Globulin Albumin/Globulin Ratio Urine Color Urine Clarity Urine pH Ur Specific [place] Urine Protein Urine Glucose (UA) Urine Ketones Urine Blood Urine Nitrate Urine Bilirubin Urine Urobilinogen Ur Leukocyte Esterase Urine WBC (Auto) Urine RBC (Auto) Ur Squamous Epith Cells Urine Bacteria Assessment & Plan (1) Lung cancer Status: Acute (2) CAD (coronary artery disease) Status: Acute (3) COPD exacerbation Status: Acute (4) Chronic congestive heart failure Status: Acute (5) Diabetes Status: Acute (6) Hypertension Status: Acute (7) Pulmonary embolism Status: Acute (8) Respiratory failure with hypoxia Status: Acute - Assessment and Plan (Free Text) Assessment: 71 YO FEMALE WITH A HX MULT MED PROBS ADM WITH WORSENING DYSPNEA., +HX PE, COPD EXAC, ACUTE ON CHRONIC RESP FAILURE,. CONT ANTICOAG., CONT NEB BD., STEROIDS, . CXR REVIEWED. MONITOR O2 SAT., MONITOR INR. ONC F/U. PROG POOR. DISCUSSED WITH STAFF
[2016-10-06] MEDS: Ciprofloxacin 200mg/100ml D5W 100 ML IVPB SCH ×2 (00:05→12:32)
[2016-10-06 04:02] LABS: CHLORIDE URINE 160 mmol/L (32-290)
[2016-10-06] MEDS: Oxycodone/Acetaminophen 5/325 mg Tab PO PRN ×2 (05:29→18:39)
[2016-10-06] MEDS: Piperacill/Tazo 3.375gm in Dex 3.375 GM/50 ML BAG IVPB SCH ×3 (05:29→21:09)
[2016-10-06] MEDS: Sodium Chloride 0.9% 1,000 ML IV SCH ×2 (05:32→17:02)
--- NOTE | 2016-10-06 06:32 | CP.PCM.PN ---
Subjective - Date & Time of Evaluation Date of Evaluation: 10/06/16 Time of Evaluation: 06:29 - Subjective Subjective: ALERT, LESS SOB. NO CP. ROS: OTHERWISE NEG. Objective - Vital Signs/Intake and Output Vital Signs (last 24 hours): Temp Pulse Resp BP Pulse Ox 98.6 F 96 H 20 102/66 100 10/05/16 23:09 10/06/16 01:00 10/05/16 23:09 10/05/16 23:09 10/05/16 23:09 Intake and Output: 10/05/16 10/06/16 18:59 06:59 Intake Total 1050 Balance 1050 - Medications Medications: Current Medications Acetaminophen (Tylenol 325mg Tab) 650 mg PO Q6 PRN PRN Reason: Headache Last Admin: 10/04/16 17:20 Dose: 650 mg Albuterol Sulfate (Albuterol 0.083% Inhal Elisabet (2.5 Mg/3 Ml) Ud) 2.5 mg INH RQID [facility] Last Admin: 10/05/16 19:24 Dose: 2.5 mg Digoxin (Lanoxin) 0.125 mg PO DAILY@1800 [facility] Last Admin: 10/05/16 17:42 Dose: 0.125 mg Glipizide (Glucotrol Xl) 10 mg PO BID [facility] Last Admin: 10/05/16 17:42 Dose: 10 mg Sodium Chloride (Sodium Chloride 0.9%) 1,000 mls @ 80 mls/hr IV .[id number] [facility] Last Admin: 10/06/16 05:32 Dose: 80 mls/hr Piperacillin Sod/Tazobactam Sod (Zosyn 3.375 Gm Iv Premix) 3.375 gm in 50 mls @ 100 mls/hr IVPB Q8 [facility] Last Admin: 10/06/16 05:29 Dose: 100 mls/hr Ciprofloxacin (Cipro 200mg/100ml D5w) 100 mls @ 67 mls/hr IVPB Q12H [facility] Last Admin: 10/06/16 00:05 Dose: 67 mls/hr Insulin Aspart (Novolog) 0 unit SC ACHS [facility] PRN Reason: Protocol Last Admin: 10/05/16 21:29 Dose: Not Given Metoprolol Tartrate (Lopressor) 50 mg PO BID [facility] Last Admin: 10/05/16 17:43 Dose: 50 mg Montelukast Sodium (Singulair) 10 mg PO HS [facility] Last Admin: 10/05/16 21:21 Dose: 10 mg Oxycodone/Acetaminophen (Percocet 5/325 Mg Tab) 1 tab PO Q6H PRN PRN Reason: Pain, severe (8-10) Stop: 10/07/16 18:46 Last Admin: 10/06/16 05:29 Dose: 1 tab Pantoprazole Sodium (Protonix Ec Tab) 40 mg PO DAILY [facility] Last Admin: 10/05/16 09:20 Dose: 40 mg Rosuvastatin Calcium (Crestor) 5 mg PO HS [facility] Last Admin: 10/05/16 21:21 Dose: 5 mg Fluticasone/Salmeterol (Advair Diskus 250/50) 1 puff INH RQ12 [facility] Last Admin: 10/05/16 19:25 Dose: 1 puff - Labs Labs: 10/05/16 06:00 10/05/16 06:00 PT 26.0 SECONDS (9.7-12.2) H 10/05/16 06:00 INR 2.2 10/05/16 06:00 APTT 35 SECONDS (21-34) H D 10/03/16 07:48 - Constitutional Appears: No Acute Distress, Chronically Ill - Head Exam Head Exam: ATRAUMATIC, NORMOCEPHALIC - Eye Exam Eye Exam: EOMI, Periorbital tenderness - ENT Exam ENT Exam: Mucous Membranes Moist - Neck Exam Neck Exam: absent: Tenderness - Respiratory Exam Respiratory Exam: Decreased Breath Sounds. absent: Accessory Muscle Use, Wheezes - Cardiovascular Exam Cardiovascular Exam: RRR - GI/Abdominal Exam GI & Abdominal Exam: Soft. absent: Tenderness - Rectal Exam Rectal Exam: Deferred - Extremities Exam Extremities Exam: absent: Calf Tenderness, Pedal Edema - Back Exam Back Exam: absent: CVA tenderness (L), CVA tenderness (R) - Neurological Exam Neurological Exam: Alert, Awake, CN II-XII Intact, Oriented x3 - Psychiatric Exam Psychiatric exam: Normal Affect - Skin Skin Exam: absent: Rash Assessment and Plan (1) Lung cancer Status: Acute (2) CAD (coronary artery disease) Status: Acute (3) COPD exacerbation Status: Acute (4) Chronic congestive heart failure Status: Acute (5) Diabetes Status: Acute (6) Hypertension Status: Acute (7) Pulmonary embolism Status: Acute (8) Respiratory failure with hypoxia Status: Acute - Assessment and Plan (Free Text) Assessment: RESP STATUS IMPROVING., AFEBRILE. CONT PULM TOILET., NEB BD., STEROID TAPER., MONITOR O2 SAT. CXR REVIEWED., MONITOR INR., INCREASE OOB. PROG POOR. DISCUSSED WITH STAFF. DR CHEN WILL BE COVERING [place] 10/06 - 10/12/16 IF NEEDED.
[2016-10-06 07:12] LABS: BASO % 0.3 % (0.0-2.0); EOS # 0.1 K/uL (0.0-0.7); EOS % 0.8 % (0.0-4.0); HEMATOCRIT 27.5 % (34.0-47.0); LYMPH % 9.4 % (20.0-40.0); MEAN CELL VOLUME 82.4 fL (81.0-99.0); MEAN CORPUSCULAR HEMOGLOBIN 25.6 pg (27.0-31.0); MEAN CORPUSCULAR HGB CONC 31.1 g/dL (33.0-37.0); MEAN PLATELET VOLUME 6.8 fL (7.2-11.7); MONO # 1.1 K/uL (0.0-0.8); MONO % 11.3 % (0.0-10.0); PLATELET COUNT 294 K/uL (130-400); RED CELL DISTRIBUTION WIDTH 17.3 % (11.5-14.5); WHITE BLOOD COUNT 10.1 K/uL (4.8-10.8)
[2016-10-06 07:40] LABS: CALCIUM 9.9 mg/dl (8.6-10.4)
[2016-10-06 07:41] LABS: INR 3.2
[2016-10-06] MEDS: Albuterol 0.083% Inhal Sol (2.5 mg/3 mL) UD INH SCH ×2 (07:48→11:36)
[2016-10-06] MEDS: (Novolog) Insulin Aspart, Recombinant 100 u/ml 10 ml vial SC SCH ×4 (08:05→22:00)
[2016-10-06 08:17] LABS: EOSINOPHIL 2 % (0-4); NEUTROPHIL 86 % (50-75); TOTAL CELLS COUNTED 100
[2016-10-06] MEDS: Fluticasone-Salmeterol 250-50mcg Diskus INH SCH ×2 (08:48→20:08)
--- NOTE | 2016-10-06 08:53 | PN ---
SUBJECTIVE: The patient is alert and awake, but having fever of 102 and shortness of breath on exertion and decrease of pain to the right side of the chest. PHYSICAL EXAMINATION VITAL SIGNS: The patient has blood pressure of 115/70, pulse is 113, respirations 20, temperature 98.2. NECK: Supple. No JVD. LUNGS: There are some rales bilaterally at the bases. HEART: Tachycardic. ABDOMEN: Soft. There is some degree of tenderness in the left flank. hydronephrosis bilaterally. EXTREMITIES: There is no edema. LABORATORY DATA: WBC is 12.6, hemoglobin 9, hematocrit 29.6, and platelets 329. Chemistry showed sodium 136, potassium 4.5, chloride 102, bicarb 26, BUN 12, creatinine is 1.3, glucose is 73, AST 60, ALT 62, alkaline phosphatase is 89 and coagulation show that PT is 26 and INR is 2.2. PLAN: Urine culture and blood culture is repeated, and the patient will be put on antibiotic including IV Zosyn and also Cipro 200 mg IV twice a day. The case was discussed and reviewed with nurse practitioner, . Lab is ordered for tomorrow. Isak Mark MD
[2016-10-06] MEDS: GlipiZIDE 10 mg SR Tab PO SCH ×2 (10:49→10:57)
[2016-10-06] MEDS: Pantoprazole 40 mg EC Tab PO SCH (10:49)
--- NOTE | 2016-10-06 12:15 | PN ---
SUBJECTIVE: The patient denies any shortness of breath at this time. She is experiencing sharp right subcostal chest pain. PHYSICAL EXAMINATION: VITAL SIGNS: Blood pressure /79, heart rate 101, temperature 98.3, and respiration 20. HEENT: Pale conjunctivae. CHEST: Diminished breath sounds over the right base. HEART: S1 and S2 regular. ABDOMEN: Soft. EXTREMITIES: No edema. LABORATORY DATA: Hemoglobin and hematocrit are 8.6 and 27.5, white count and platelet count are 10.5 and 294,000. Today's INR is 3.2. PT 37.7. Today's SMA-7 is within normal limits, except for creatinine of 1.4. ASSESSMENT: 1. 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 2. Chronic renal insufficiency. 3. Slightly prolonged prothrombin time. 4. History of pulmonary embolus. RECOMMENDATIONS: Case was discussed with Dr. Isak Mark and with EPN. Continue current Lanoxin 0.125 mg twice daily, Lopressor 50 mg twice a day, IV Zosyn 3.375 g intravenously q. 8 hours. I will hold on Coumadin therapy today. Parrish Bailey MD
[2016-10-06] MEDS ORDERED: Vancomycin 1 gm/NS 200 ml 1 GM/200 ML BAG IVPB STA (16:33)
--- NOTE | 2016-10-06 17:09 | CP.PCM.CON ---
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 lung, unable to go through with resection (high risk), got local RT, developed disease progression with increasing lung mass, L.N involvement, some response to chemo, but has been unable to follow up because of multiple hospitalizations, dyspnea on minimal exertion, P.E, pneumonia. The patient currently is febrile, poor appetite, short of breath even at rest. Past Patient History - Infectious Disease Hx of Infectious Diseases: None - Tetanus Immunizations Tetanus Immunization: Unknown - Past Medical History & Family History Past Medical History?: Yes Past Family History: Reviewed and not pertinent - Past Social History Smoking Status: Former Smoker Alcohol: None Drugs: Denies - CARDIAC Hx Cardiac Disorders: Yes (Cardiac arrhythmia) Hx Hypercholesterolemia: Yes Hx Hypertension: Yes - PULMONARY Hx Chronic Obstructive Pulmonary Disease (COPD): Yes Hx Emphysema: Yes Hx Lung Cancer: Yes Hx Pulmonary Embolism: Yes - NEUROLOGICAL Hx Neurological Disorder: No Hx Paralysis: No - HEENT Hx HEENT Problems: Yes Hx Epistaxis: Yes Other/Comment: eye glasses for reading - RENAL Hx Chronic Kidney Disease: Yes Hx Kidney Stones: Yes (CYSTO/STENT 2009) - ENDOCRINE/METABOLIC Hx Diabetes Mellitus Type 2: Yes - HEMATOLOGICAL/ONCOLOGICAL Hx Anemia: Yes Hx Cancer: Yes (RIGHT LUNG CA) - INTEGUMENTARY Hx Dermatological Problems: No - MUSCULOSKELETAL/RHEUMATOLOGICAL Hx Arthritis: Yes - GASTROINTESTINAL Hx Gastrointestinal Disorders: Yes Hx Constipation: Yes - GENITOURINARY/GYNECOLOGICAL Hx Genitourinary Disorders: Yes - PSYCHIATRIC Hx Psychophysiologic Disorder: No Hx Substance Use: No - SURGICAL HISTORY Hx Surgeries: Yes Hx Coronary Stent: Yes (2004) - ANESTHESIA Hx Anesthesia: Yes Hx Anesthesia Reactions: No Hx Malignant Hyperthermia: No Meds Allergies/Adverse Reactions: Allergies Allergy/AdvReac Type Severity Reaction Status Date / Time No Known Allergies Allergy Verified 10/01/16 07:32 - Medications Medications: Current Medications Acetaminophen (Tylenol 325mg Tab) 650 mg PO Q6 PRN PRN Reason: Headache Last Admin: 10/04/16 17:20 Dose: 650 mg Digoxin (Lanoxin) 0.125 mg PO DAILY@1800 [facility] Last Admin: 10/05/16 17:42 Dose: 0.125 mg Glipizide (Glucotrol Xl) 5 mg PO BID [facility] Piperacillin Sod/Tazobactam Sod (Zosyn 3.375 Gm Iv Premix) 3.375 gm in 50 mls @ 100 mls/hr IVPB Q8 [facility] Last Admin: 10/06/16 13:28 Dose: 100 mls/hr Ciprofloxacin (Cipro 200mg/100ml D5w) 100 mls @ 67 mls/hr IVPB Q12H [facility] Last Admin: 10/06/16 12:32 Dose: 67 mls/hr Vancomycin/Sodium Chloride (Vancocin) 1 gm in 200 mls @ 133 mls/hr IVPB STAT [facility] Stop: 10/06/16 18:03 Sodium Chloride (Sodium Chloride 0.9%) 1,000 mls @ 50 mls/hr IV .Q20H [facility] Insulin Aspart (Novolog) 0 unit SC ACHS [facility] PRN Reason: Protocol Last Admin: 10/06/16 12:12 Dose: Not Given Metoprolol Tartrate (Lopressor) 50 mg PO BID [facility] Last Admin: 10/06/16 10:49 Dose: 50 mg Montelukast Sodium (Singulair) 10 mg PO HS [facility] Last Admin: 10/05/16 21:21 Dose: 10 mg Oxycodone/Acetaminophen (Percocet 5/325 Mg Tab) 1 tab PO Q6H PRN PRN Reason: Pain, severe (8-10) Stop: 10/07/16 18:46 Last Admin: 10/06/16 05:29 Dose: 1 tab Pantoprazole Sodium (Protonix Ec Tab) 40 mg PO DAILY [facility] Last Admin: 10/06/16 10:49 Dose: 40 mg Rosuvastatin Calcium (Crestor) 5 mg PO HS [facility] Last Admin: 10/05/16 21:21 Dose: 5 mg Fluticasone/Salmeterol (Advair Diskus 250/50) 1 puff INH RQ12 [facility] Last Admin: 10/06/16 08:48 Dose: 1 puff Results - Vital Signs Recent Vital Signs: Last Vital Signs Temp 102.8 F H 10/06/16 15:18 Pulse 111 H 10/06/16 15:18 Resp 20 10/06/16 15:18 BP 121/70 10/06/16 15:18 Pulse Ox 100 10/06/16 15:18 - Labs Result Diagrams: 10/06/16 07:06 10/06/16 07:06 Labs: Laboratory Results - last 24 hr 10/05/16 10/05/16 10/06/16 10:02 21:19 06:05 WBC RBC Hgb Hct MCV MCH MCHC RDW Plt Count MPV Neut % (Auto) Lymph % (Auto) [place] % (Auto) Eos % (Auto) Baso % (Auto) Neut # Lymph # [place] # Eos # Baso # Neutrophils % (Manual) Lymphocytes % (Manual) Monocytes % (Manual) Eosinophils % (Manual) Platelet Estimate Hypochromasia (manual) Anisocytosis (manual) PT INR Sodium Potassium Chloride Carbon Dioxide Anion Gap BUN Creatinine Est GFR ( Amer) Est GFR (Non-Af Amer) POC Glucose (mg/dL) 91 52 L Random Glucose Calcium Urine Chloride 160 10/06/16 10/06/16 10/06/16 06:24 07:06 07:06 WBC 10.1 RBC 3.34 L Hgb 8.6 L Hct 27.5 L MCV 82.4 MCH 25.6 L MCHC 31.1 L RDW 17.3 H Plt Count 294 MPV 6.8 L Neut % (Auto) 78.2 H Lymph % (Auto) 9.4 L [place] % (Auto) 11.3 H Eos % (Auto) 0.8 Baso % (Auto) 0.3 Neut # 7.9 H Lymph # 1.0 [place] # 1.1 H Eos # 0.1 Baso # 0.0 Neutrophils % (Manual) 86 H Lymphocytes % (Manual) 5 L Monocytes % (Manual) 7 Eosinophils % (Manual) 2 Platelet Estimate Normal Hypochromasia (manual) Slight Anisocytosis (manual) Slight PT 37.7 H* D INR 3.2 D Sodium Potassium Chloride Carbon Dioxide Anion Gap BUN Creatinine Est GFR ( Amer) Est GFR (Non-Af Amer) POC Glucose (mg/dL) 81 Random Glucose Calcium Urine Chloride 10/06/16 10/06/16 10/06/16 07:06 11:29 16:14 WBC RBC Hgb Hct MCV MCH MCHC RDW Plt Count MPV Neut % (Auto) Lymph % (Auto) [place] % (Auto) Eos % (Auto) Baso % (Auto) Neut # Lymph # [place] # Eos # Baso # Neutrophils % (Manual) Lymphocytes % (Manual) Monocytes % (Manual) Eosinophils % (Manual) Platelet Estimate Hypochromasia (manual) Anisocytosis (manual) PT INR Sodium 137 Potassium 4.0 Chloride 100 Carbon Dioxide 27 Anion Gap 15 BUN 12 Creatinine 1.4 H Est GFR ( Amer) 45 Est GFR (Non-Af Amer) 37 POC Glucose (mg/dL) 102 41 L Random Glucose 81 Calcium 9.9 Urine Chloride Assessment & Plan - Assessment and Plan (Free Text) Assessment: Metastatic squamous cell cancer, currently off chemotherapy, r/o disease progression. Will get restaging CATscans and urine cultures(history of b/l hydronephrosis)
[2016-10-06] MEDS: Digoxin 125 mcg (0.125 mg) Tab PO SCH (17:19)
[2016-10-06] MEDS ORDERED: Iohexol 240 (50 ml) PO ONE ×2 (17:45→20:30)
--- NOTE | 2016-10-06 18:26 | CP.PCM.CON ---
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 Patient unable to go through with resection due to high risk, received some local radiation but continued to have disease progression with increasing lung mass and lymph node involvement. Patient also received some chemotherapy as per patient about 6 months ago but has not been able to follow-up because of multiple hospitalizations, pulmonary embolism, pneumonia. Patient also has history of kidney stones as reported by oncologist Dr. Miller with history of bilateral hydronephrosis. Patient admitted because of shortness of breath, cough and dyspnea on minimal exertion. Patient also has fevers with poor appetite. Patient also complains of difficulty urinating and presently on bed worley unable to pass any urine. Patient also admits to drinking very little and has mild chronic renal insufficiency with BUN of 12 and creatinine of 4. Infectious disease consultation requested by Dr. Swain PMD for hyperpyrexia and sepsis. Patient presently on IV Zosyn, and IV Cipro with one dose of IV vancomycin given by nurse practitioner KEVIN today 10/06/16. CHEST X-RAY ON ADMISSION 10/05/16 SHOWS RIGHT UPPER LOBE MASS UNCHANGED WITH SURGICAL CLIPS. ALLERGIES; NKA. PMH: Anemia, Arthritis, Asthma, Cardia Arrhythmia, COPD, Diabetes, HTN, Hypercholesterolemia, Kidney Stones (CYSTO/STENT 2009), Malignancy (Lung), Pulmonary Embolism, Chronic Kidney Disease Denies: Sleep Apnea Surgical History: Coronary Stent (2004) Denies: Pacemaker PATIENT HAD pORT-A-CATH REMOVED 08/19/16.as per review of old records. - [facility] [place] Procedures CLOSED [PERCUTANEOUS] [NEEDLE] BIOPSY OF LUNG (12/05/13) CYSTOGRAM NEC (11/28/13) DRAINAGE OF RIGHT KNEE JOINT, PERCUTANEOUS APPROACH, DIAGN (01/29/16) EXCISION OF DESCENDING COLON, ENDO, DIAGN (03/25/16) INFLUENZA VACCINATION (01/31/14) INSERT INTERCOSTAL CATH (12/05/13) INSERTION OF ENDOTRACHEAL AIRWAY INTO TRACHEA, VIA OPENING (06/28/16) OTHER LOBECTOMY OF LUNG (01/31/14) REMOVAL OF INFUSION DEVICE FROM UPPER VEIN, FOUNDRY HAND APPROACH (05/31/17) REMOVAL OF VAD FROM UP EXTREM SUBCU/FASCIA, OPEN APPROACH (08/12/16) RESPIRATORY VENTILATION, 24-96 CONSECUTIVE HOURS (06/28/16) RETROGRADE PYELOGRAM (11/28/13) VACCINATION NEC (12/05/13) Family History: States: Other Other Family History: Cancer - Social History Hx Tobacco Use: Yes (former smoker) Hx Alcohol Use: No Hx Substance Use: No - Immunization History Hx Tetanus Toxoid Vaccination: No Hx Influenza Vaccination: No Hx Pneumococcal Vaccination: No Review of Systems - Constitutional Constitutional: Fever, Lethargy, Malaise - EENT Eyes: absent: Change in Vision Nose/Mouth/Throat: Dry Mouth. absent: Mouth Lesions - Cardiovascular Cardiovascular: Dyspnea on Exertion. absent: Chest Pain, Leg Edema - Respiratory Respiratory: Cough. absent: Hemoptysis - Gastrointestinal Gastrointestinal: absent: Diarrhea, Nausea, Vomiting - Genitourinary Genitourinary: Urinary Hesitance, Hx Renal/Bladder Calculi, Hx /Renal Surgery (history of stents in 2009.). absent: Dysuria - Neurological Neurological: absent: Dizziness, Headaches - Hematologic/Lymphatic Hematologic: As Per HPI. absent: Lymphadenopathy Past Patient History - Infectious Disease Hx of Infectious Diseases: None - Tetanus Immunizations Tetanus Immunization: Unknown - Past Medical History & Family History Past Medical History?: Yes Past Family History: Reviewed and not pertinent - Past Social History Smoking Status: Former Smoker Alcohol: None Drugs: Denies - CARDIAC Hx Cardiac Disorders: Yes (Cardiac arrhythmia) Hx Hypercholesterolemia: Yes Hx Hypertension: Yes - PULMONARY Hx Chronic Obstructive Pulmonary Disease (COPD): Yes Hx Emphysema: Yes Hx Lung Cancer: Yes Hx Pulmonary Embolism: Yes - NEUROLOGICAL Hx Neurological Disorder: No Hx Paralysis: No - HEENT Hx HEENT Problems: Yes Hx Epistaxis: Yes Other/Comment: eye glasses for reading - RENAL Hx Chronic Kidney Disease: Yes Hx Kidney Stones: Yes (CYSTO/STENT 2009) - ENDOCRINE/METABOLIC Hx Diabetes Mellitus Type 2: Yes - HEMATOLOGICAL/ONCOLOGICAL Hx Anemia: Yes Hx Cancer: Yes (RIGHT LUNG CA) - INTEGUMENTARY Hx Dermatological Problems: No - MUSCULOSKELETAL/RHEUMATOLOGICAL Hx Arthritis: Yes - GASTROINTESTINAL Hx Gastrointestinal Disorders: Yes Hx Constipation: Yes - GENITOURINARY/GYNECOLOGICAL Hx Genitourinary Disorders: Yes - PSYCHIATRIC Hx Psychophysiologic Disorder: No Hx Substance Use: No - SURGICAL HISTORY Hx Surgeries: Yes Hx Coronary Stent: Yes (2004) - ANESTHESIA Hx Anesthesia: Yes Hx Anesthesia Reactions: No Hx Malignant Hyperthermia: No Meds Allergies/Adverse Reactions: Allergies Allergy/AdvReac Type Severity Reaction Status Date / Time No Known Allergies Allergy Verified 10/01/16 07:32 - Medications Medications: Current Medications Acetaminophen (Tylenol 325mg Tab) 650 mg PO Q6 PRN PRN Reason: Headache Last Admin: 10/06/16 17:18 Dose: 650 mg Digoxin (Lanoxin) 0.125 mg PO DAILY@1800 [facility] Last Admin: 10/06/16 17:19 Dose: 0.125 mg Glipizide (Glucotrol Xl) 5 mg PO BID [facility] Piperacillin Sod/Tazobactam Sod (Zosyn 3.375 Gm Iv Premix) 3.375 gm in 50 mls @ 100 mls/hr IVPB Q8 [facility] Last Admin: 10/06/16 13:28 Dose: 100 mls/hr Ciprofloxacin (Cipro 200mg/100ml D5w) 100 mls @ 67 mls/hr IVPB Q12H [facility] Last Admin: 10/06/16 12:32 Dose: 67 mls/hr Sodium Chloride (Sodium Chloride 0.9%) 1,000 mls @ 50 mls/hr IV .Q20H [facility] Last Admin: 10/06/16 17:02 Dose: 50 mls/hr Insulin Aspart (Novolog) 0 unit SC ACHS [facility] PRN Reason: Protocol Last Admin: 10/06/16 17:03 Dose: Not Given Metoprolol Tartrate (Lopressor) 50 mg PO BID [facility] Last Admin: 10/06/16 17:19 Dose: 50 mg Montelukast Sodium (Singulair) 10 mg PO [facility] Last Admin: 10/05/16 21:21 Dose: 10 mg Oxycodone/Acetaminophen (Percocet 5/325 Mg Tab) 1 tab PO Q6H PRN PRN Reason: Pain, severe (8-10) Stop: 10/07/16 18:46 Last Admin: 10/06/16 05:29 Dose: 1 tab Pantoprazole Sodium (Protonix Ec Tab) 40 mg PO DAILY [facility] Last Admin: 10/06/16 10:49 Dose: 40 mg Rosuvastatin Calcium (Crestor) 5 mg PO [facility] Last Admin: 10/05/16 21:21 Dose: 5 mg Fluticasone/Salmeterol (Advair Diskus 250/50) 1 puff INH RQ12 [facility] Last Admin: 10/06/16 08:48 Dose: 1 puff Physical Exam - Constitutional Appears: No Acute Distress - Head Exam Head Exam: NORMAL INSPECTION - Eye Exam Eye Exam: EOMI, PERRL - ENT Exam ENT Exam: Mucous Membranes Dry, Normal Oropharynx - Neck Exam Neck exam: Positive for: Normal Inspection - Respiratory Exam Respiratory Exam: Rhonchi (right-sided rhonchi.) - Cardiovascular Exam Cardiovascular Exam: Tachycardia, REGULAR RHYTHM, +S1, +S2 - GI/Abdominal Exam GI & Abdominal Exam: Normal Bowel Sounds, Soft. absent: Organomegaly, Tenderness - Extremities Exam Extremities exam: Positive for: pedal pulses present. Negative for: calf tenderness, pedal edema - Neurological Exam Neurological exam: Alert, CN II-XII Intact, Oriented x3, Reflexes Normal - Psychiatric Exam Psychiatric exam: Normal Mood - Skin Skin Exam: Normal Color, Warm Results - Vital Signs Recent Vital Signs: Last Vital Signs Temp 102.8 F H 10/06/16 17:18 Pulse 111 H 10/06/16 15:18 Resp 20 10/06/16 15:18 BP 121/70 10/06/16 15:18 Pulse Ox 100 10/06/16 15:18 - Labs Result Diagrams: 10/06/16 07:06 10/06/16 07:06 Labs: Laboratory Results - last 24 hr 10/05/16 10/05/16 10/06/16 10:02 21:19 06:05 WBC RBC Hgb Hct MCV MCH MCHC RDW Plt Count MPV Neut % (Auto) Lymph % (Auto) Eddy % (Auto) Eos % (Auto) Baso % (Auto) Neut # Lymph # Eddy # Eos # Baso # Neutrophils % (Manual) Lymphocytes % (Manual) Monocytes % (Manual) Eosinophils % (Manual) Platelet Estimate Hypochromasia (manual) Anisocytosis (manual) PT INR Sodium Potassium Chloride Carbon Dioxide Anion Gap BUN Creatinine Est GFR ( Amer) Est GFR (Non-Af Amer) POC Glucose (mg/dL) 91 52 L Random Glucose Calcium Urine Chloride 160 10/06/16 10/06/16 10/06/16 06:24 07:06 07:06 WBC 10.1 RBC 3.34 L Hgb 8.6 L Hct 27.5 L MCV 82.4 MCH 25.6 L MCHC 31.1 L RDW 17.3 H Plt Count 294 MPV 6.8 L Neut % (Auto) 78.2 H Lymph % (Auto) 9.4 L Eddy % (Auto) 11.3 H Eos % (Auto) 0.8 Baso % (Auto) 0.3 Neut # 7.9 H Lymph # 1.0 Eddy # 1.1 H Eos # 0.1 Baso # 0.0 Neutrophils % (Manual) 86 H Lymphocytes % (Manual) 5 L Monocytes % (Manual) 7 Eosinophils % (Manual) 2 Platelet Estimate Normal Hypochromasia (manual) Slight Anisocytosis (manual) Slight PT 37.7 H* D INR 3.2 D Sodium Potassium Chloride Carbon Dioxide Anion Gap BUN Creatinine Est GFR ( Amer) Est GFR (Non-Af Amer) POC Glucose (mg/dL) 81 Random Glucose Calcium Urine Chloride 10/06/16 10/06/16 10/06/16 07:06 11:29 16:14 WBC RBC Hgb Hct MCV MCH MCHC RDW Plt Count MPV Neut % (Auto) Lymph % (Auto) Eddy % (Auto) Eos % (Auto) Baso % (Auto) Neut # Lymph # Eddy # Eos # Baso # Neutrophils % (Manual) Lymphocytes % (Manual) Monocytes % (Manual) Eosinophils % (Manual) Platelet Estimate Hypochromasia (manual) Anisocytosis (manual) PT INR Sodium 137 Potassium 4.0 Chloride 100 Carbon Dioxide 27 Anion Gap 15 BUN 12 Creatinine 1.4 H Est GFR ( Amer) 45 Est GFR (Non-Af Amer) 37 POC Glucose (mg/dL) 102 41 L Random Glucose 81 Calcium 9.9 Urine Chloride 10/06/16 16:58 WBC RBC Hgb Hct MCV MCH MCHC RDW Plt Count MPV Neut % (Auto) Lymph % (Auto) Eddy % (Auto) Eos % (Auto) Baso % (Auto) Neut # Lymph # Eddy # Eos # Baso # Neutrophils % (Manual) Lymphocytes % (Manual) Monocytes % (Manual) Eosinophils % (Manual) Platelet Estimate Hypochromasia (manual) Anisocytosis (manual) PT INR Sodium Potassium Chloride Carbon Dioxide Anion Gap BUN Creatinine Est GFR ( Amer) Est GFR (Non-Af Amer) POC Glucose (mg/dL) 103 Random Glucose Calcium Urine Chloride - Imaging and Cardiology Chest x-ray Status: Report reviewed by me (see reports.) Assessment & Plan (1) Sepsis Assessment and Plan: Source of sepsis is not clear /? sepsis as patient has history of bilateral hydronephrosis and stent placements in 2009 as reported by oncologist. Pancultures. Patient will need a Mosqueda catheter and unable to pass any urine. Clean catch UA urine culture today while inserting Mosqueda. Continue IV Zosyn 3.375 every 8 hourly. DC IV Cipro in view of transaminitis. Patient got 1 dose of vancomycin 1 g today. 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 Follow-up cultures and adjust antibiotics. Status: Acute (2) Respiratory distress Status: Acute (3) COPD exacerbation Assessment and Plan: PULMONARY ON CASE. PATIENT ON NASAL CANNULA OXYGEN 100% PULMONARY TOILET/AND aDVAIR dISKUS PER PULMONARY FOR EXACERBATION OF copd. Status: Acute (4) Lung mass Assessment and Plan: DISCUSSED WITH ONCOLOGIST PATIENT TO GET CT OF THE ABDOMEN AND PELVIS FOR STAGING AND EVALUATION OF KIDNEY STONES AND HYDRONEPHROSIS IF ANY. Status: Acute (5) Renal insufficiency Assessment and Plan: MONITOR RENAL FUNCTIONS CLOSELY. cREATININE 1.4/ bun 12 ON 10/06/16. Status: Acute (6) Lung cancer Assessment and Plan: RUL MASS-SQUAMOUS CELL LUNG CA. S/P RESECTION /SP XRT/AND CHEMO ( SEV MONTHS AGO ) Status: Acute
[2016-10-06] MEDS: GlipiZIDE 5 mg SR Tab PO SCH (18:39)
[2016-10-06] MEDS: Linezolid 600 mg in D5W 300 ml 600 MG/300 ML BAG IVPB SCH (21:51)
--- NOTE | 2016-10-07 05:23 | PN ---
DATE: 10/06/2016 SUBJECTIVE: Today, the patient is alert and awake, positive cough and shortness of breath on exertion. The patient also had fever. PHYSICAL EXAMINATION VITAL SIGNS: Blood pressure is 121/70, pulse 111, respirations 20 and temperature 102.8 this afternoon; this morning, the temperature was 99.1. HEENT: Head is normocephalic. NECK: Supple. CARDIOPULMONARY: Tachycardiac. LUNGS: He has some rales bilaterally. ABDOMEN: Soft and nontender. Positive and palpable kidney on both sides. EXTREMITIES: There is no edema. LABORATORY DATA: The blood test done has showed that the WBC is 10.1, hemoglobin 8.6, hematocrit 27.5 and platelets 294. Chemistry shows sodium 137, potassium 4, chloride 100, bicarb 27, BUN 12, creatinine 1.4 and glucose is 81. Coagulation showed the PT is 37.7 and INR is 3.2. ASSESSMENT AND PLAN: So, the plan is that we continue the antiplatelet therapy. Also, we are going to have a consult with YUAN De La Cruz. Also, lab work was ordered for tomorrow. So, the plan was . Isak Mark MD
[2016-10-07] MEDS: Piperacill/Tazo 3.375gm in Dex 3.375 GM/50 ML BAG IVPB SCH ×3 (06:10→21:05)
[2016-10-07 07:33] LABS: INR 5.2
[2016-10-07 07:38] LABS: ALB/GLOB RATIO 0.8 (1.0-2.1); BILIRUBIN,DIRECT 0.4 mg/dL (0.0-0.4); BILIRUBIN,TOTAL 0.4 mg/dL (0.2-1.3); CALCIUM 9.4 mg/dl (8.6-10.4); TOTAL PROTEIN 5.5 g/dL (6.3-8.3)
[2016-10-07 07:43] LABS: BASO % 0.3 % (0.0-2.0); EOS # 0.1 K/uL (0.0-0.7); EOS % 0.6 % (0.0-4.0); LYMPH # 1.6 K/uL (1.0-4.3); LYMPH % 11.7 % (20.0-40.0); MEAN CELL VOLUME 81.1 fL (81.0-99.0); MEAN CORPUSCULAR HGB CONC 30.9 g/dL (33.0-37.0); MONO # 0.8 K/uL (0.0-0.8); MONO % 5.9 % (0.0-10.0); NRBC % 0.1 % (0.0-2.0); RED CELL DISTRIBUTION WIDTH 17.2 % (11.5-14.5); WHITE BLOOD COUNT 13.3 K/uL (4.8-10.8)
[2016-10-07] MEDS: Fluticasone-Salmeterol 250-50mcg Diskus INH SCH (08:08)
[2016-10-07] MEDS: (Novolog) Insulin Aspart, Recombinant 100 u/ml 10 ml vial SC SCH ×4 (08:30→22:00)
[2016-10-07] MEDS ORDERED: Phytonadione 10 mg/ml Inj (Adult) SC ONE (09:15)
[2016-10-07] MEDS: Pantoprazole 40 mg EC Tab PO SCH (10:23)
[2016-10-07] MEDS: GlipiZIDE 5 mg SR Tab PO SCH ×2 (10:23→17:08)
[2016-10-07] MEDS: Linezolid 600 mg in D5W 300 ml 600 MG/300 ML BAG IVPB SCH ×2 (10:24→21:05)
--- NOTE | 2016-10-07 10:54 | CT ---
CT chest, abdomen, and pelvis without IV contrast Indication: FEVER, R/O LUNG CANCER PROGRESSION, dehydration, bleeding risk, Coumadin Technique: Contiguous axial images of the chest, abdomen, and pelvis without oral or IV contrast. Coronal and Sagittal reformats generated and reviewed. This CT exam was performed using 1 or more of the falling dose reduction techniques: Automated exposure control, adjustment of the MAA and/or kV according to patient size, and/or use of iterative reconstruction technique. Radiation dose: Total exam DLP = 724.75 MGy-cm. Comparison: Chest x-ray performed 10/05/16, CT of the chest and abdomen without contrast performed 08/15/16, CT of the chest, abdomen, and pelvis performed 05/07/16 Findings: Visualized portions of the inferior thyroid gland appear unremarkable. The mediastinal and hilar vascular structures appear within normal limits. The heart appears within normal limits of size. Small pericardial effusion. Large elliptical shaped masslike lesion re-identified within the posterior aspect of the right upper lobe consistent with patient's history of lung carcinoma. Smaller ovoid mass in the left upper lobe just anterior and superior to this larger lesion measures approximately 2.6 x 1.8 cm, previously 2.5 x 1.5 cm when remeasured in a similar position on CT performed 08/15/16. Cavitary lesion is evident just lateral and inferior to the smaller mass. The cavitary lesion measures approximately 2.2 cm, previously 2.1 cm. Nodular scarring or atelectasis at the left lung base however spiculated nodule in this region cannot be excluded measuring approximately 10 mm (series 4, image 98). Centrilobular emphysema. Reticular nodular scarring evident. Small right pleural effusion. Small metallic clips noted in the right hilar region. Mediastinal adenopathy measuring up to approximately 11 mm in short axis (left paratracheal). Please note that lack of IV contrast limits evaluation for adenopathy, in particular hilar adenopathy. Low-attenuation lesion re-identified within the left hepatic lobe measuring approximately 16 mm. 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 Dilatation of the bilateral renal pelves not excluded. Bilateral ureters are not clearly visualized on this study. The right kidney appears atrophic with thin ribbon of cortex remaining. There central cystic change within the right kidney. The noncontrast spleen, pancreas, adrenal glands, and gallbladder appear unremarkable. Atherosclerotic calcifications of the aorta and branches. The stomach is nondistended. Lack of oral contrast limits evaluation for bowel pathology. The bowel loops appear within normal limits of caliber without evidence of intestinal obstruction. Marked wall thickening of the right colon and in particular the cecum, the terminal ileum as well as the appendix. The appendix appears within normal limits of caliber without associated inflammatory changes. Inflammatory changes are noted adjacent to the right colon. Overall appearance appears concerning for colitis (i.e. Infectious, inflammatory, ischemic). There is no definite free air. Uterus is present. Thick-walled under distended urinary bladder. Osseous demineralization. Multilevel degenerative changes. Vacuum disc phenomenon at L4-L5 and L5-S1. Impression: Large elliptical shaped masslike lesion re-identified within the posterior aspect of the right upper lobe consistent with patient's history of lung carcinoma. Smaller ovoid mass in the left upper lobe just anterior and superior to this larger lesion measures approximately 2.6 x 1.8 cm, slightly increased in size. Additionally, there is a cavitary lesion as described above which appears stable to minimally increased in size. Nodular scarring or atelectasis at the left lung base however spiculated nodule in this region cannot be excluded measuring approximately 10 mm. Bibasilar atelectasis/scarring and pleural thickening. Marked wall thickening of the right colon and in particular the cecum, the terminal ileum as well as the appendix. The appendix appears within normal limits of caliber without associated inflammatory changes. Inflammatory changes are noted adjacent to the right colon. Overall appearance appears concerning for colitis (i.e. Infectious, inflammatory, ischemic). Low-attenuation lesion again seen within the dome of the liver. Additional findings/details as above.
--- NOTE | 2016-10-07 11:41 | CP.PCM.PN ---
Subjective - Date & Time of Evaluation Date of Evaluation: 10/07/16 Time of Evaluation: 11:41 - Subjective Subjective: PT SEEN TODAY WITH DR. CLARK DURING HIS ROUNDS. ALL LABS AND DIAGNOSTICS REVIEWED. PT TO CONTINUE IV ABX. AM LABS PENDING 10/08. WILL F/U WITH PT TOMORROW MORNING. NO FURTHER ORDERS. Objective - Vital Signs/Intake and Output Vital Signs (last 24 hours): Temp Pulse Resp BP Pulse Ox 98.2 F 99 H 20 97/62 L 100 10/07/16 07:57 10/07/16 07:57 10/07/16 07:57 10/07/16 07:57 10/07/16 07:57 Intake and Output: 10/07/16 10/07/16 06:59 18:59 Intake Total 1220 Output Total 600 Balance 620 - Medications Medications: Current Medications Acetaminophen (Tylenol 325mg Tab) 650 mg PO Q6 PRN PRN Reason: Headache Last Admin: 10/07/16 10:22 Dose: 650 mg Digoxin (Lanoxin) 0.125 mg PO DAILY@1800 [facility] Last Admin: 10/06/16 17:19 Dose: 0.125 mg Glipizide (Glucotrol Xl) 5 mg PO BID [facility] Last Admin: 10/07/16 10:23 Dose: 5 mg Piperacillin Sod/Tazobactam Sod (Zosyn 3.375 Gm Iv Premix) 3.375 gm in 50 mls @ 100 mls/hr IVPB Q8 [facility] Last Admin: 10/07/16 06:10 Dose: 100 mls/hr Sodium Chloride (Sodium Chloride 0.9%) 1,000 mls @ 50 mls/hr IV .Q20H [facility] Last Admin: 10/06/16 17:02 Dose: 50 mls/hr Linezolid (Zyvox 600mg/300ml D5w) 600 mg in 300 mls @ 200 mls/hr IVPB Q12 [facility] Last Admin: 10/07/16 10:24 Dose: 200 mls/hr Insulin Aspart (Novolog) 0 unit SC ACHS [facility] PRN Reason: Protocol Last Admin: 10/07/16 08:30 Dose: 2 unit Metoprolol Tartrate (Lopressor) 50 mg PO BID [facility] Last Admin: 10/06/16 17:19 Dose: 50 mg Montelukast Sodium (Singulair) 10 mg PO HS [facility] Last Admin: 10/07/16 00:10 Dose: 10 mg Oxycodone/Acetaminophen (Percocet 5/325 Mg Tab) 1 tab PO Q6H PRN PRN Reason: Pain, severe (8-10) Stop: 10/07/16 18:46 Last Admin: 10/06/16 18:39 Dose: 1 tab Pantoprazole Sodium (Protonix Ec Tab) 40 mg PO DAILY [facility] Last Admin: 10/07/16 10:23 Dose: 40 mg Rosuvastatin Calcium (Crestor) 5 mg PO [facility] Last Admin: 10/06/16 21:09 Dose: 5 mg Fluticasone/Salmeterol (Advair Diskus 250/50) 1 puff INH RQ12 [facility] Last Admin: 10/07/16 08:08 Dose: 1 puff - Labs Labs: 10/07/16 06:53 10/07/16 06:53 PT 62.3 SECONDS (9.7-12.2) H* D 10/07/16 06:53 INR 5.2 D 10/07/16 06:53 APTT 35 SECONDS (21-34) H D 10/03/16 07:48
[2016-10-07] MEDS: Sodium Chloride 0.9% 1,000 ML IV SCH (12:45)
--- NOTE | 2016-10-07 15:18 | PN ---
SUBJECTIVE: The patient denies any hemoptysis. She does report right subcostal chest pain. PHYSICAL EXAMINATION: VITAL SIGNS: Blood pressure 97/62, heart rate 99, temperature 98.2, respirations 20. HEENT: Pale conjunctivae. CHEST: Diminished breath sounds over the right base. HEART: S1 and S2 regular. ABDOMEN: Soft. EXTREMITIES: No edema. LABORATORY DATA: Hemoglobin and hematocrit 7.7 and 25. White count and platelet count 15.3 and 317,000. Sodium 130, potassium 4, chloride 95, CO2 of 25, glucose 150, BUN 12, creatinine 1.5, INR is 5.2, PT 62.3. ASSESSMENT: 1. 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 2. Iatrogenic coagulopathy. 3. Hyponatremia. 4. Chronic insufficiency. 5. Anemia. RECOMMENDATIONS: I did review the abdomen and pelvic CT scan, which revealed large elliptical shaped mass-like lesion within the posterior aspect of the right upper lobe consistent with lung carcinoma, bibasilar atelectasis, pleural thickening, mild thickening of the right colon and in particular the cecum, the terminal ileum as well as the appendix beside 2.6 x 1.8 ovoid left upper lobe lung mass when the patient had a catheterization. Continue current Crestor 5 mg once a day, Glucotrol XL 5 mg twice a day, Lanoxin 0.125 mg once daily, Lopressor 50 mg twice a day, hold for systolic blood pressure below 90, continue IV Zosyn and IV Zyvox. Coumadin is on hold, and I did order vitamin K 5 mg subcutaneously to be given now. Parrish Bailey MD MTDD
[2016-10-07] MEDS: Digoxin 125 mcg (0.125 mg) Tab PO SCH (17:08)
[2016-10-07] MEDS: Oxycodone/Acetaminophen 5/325 mg Tab PO PRN (17:11)
--- NOTE | 2016-10-07 20:46 | PN ---
SUBJECTIVE: Today, the patient is alert and awake, short of breath on exertion, and no palpitation. The patient has been having some right-sided chest pain, and the patient's cough was improving. PHYSICAL EXAMINATION VITAL SIGNS: The patient has blood pressure of 104/57, pulse is 107 to 110, temperature is 98.9. HEENT: Head is normocephalic. NECK: Supple. LUNGS: Some rales noted bilaterally. Decreased breath sounds to the right side of the lung. HEART: Tachycardic. ABDOMEN: Soft and nontender. There is a slight hepatomegaly, and also there is bilateral palpable kidneys or hydronephrosis. EXTREMITIES: There is no edema. LABORATORY DATA: Lab done today showed WBC 13.3, hemoglobin 7.7, hematocrit 25, and platelet is 317. Chemistries showed that the sodium 130, potassium 4, chloride 95, bicarb 25, BUN 12, creatinine 1.5, glucose is 150, albumin 2.4, globulin 3.1, AST 50, ALT 62, alkaline phosphatase 88. Coagulation showed that PT is 62.3 and INR 5.2. PLAN: We are going to transfuse the patient 1 unit of packed RBC, and we are going to hold the Coumadin. We are going to continue the antiplatelet therapy and supportive care. The case was discussed with Brittney Abdi, the nurse practitioner. Isak Mark MD
--- NOTE | 2016-10-07 23:17 | CP.PCM.PN ---
Subjective - Date & Time of Evaluation Date of Evaluation: 10/07/16 Time of Evaluation: 23:17 - Subjective Subjective: afebrile, less short of breath voided on her own Presently denies any dysuria or hematuria.did not require catheterization. Feels better today. Objective - Vital Signs/Intake and Output Vital Signs (last 24 hours): Temp Pulse Resp BP Pulse Ox 98.9 F 110 H 20 104/67 100 10/07/16 15:36 10/07/16 16:00 10/07/16 15:36 10/07/16 15:36 10/07/16 15:36 Intake and Output: 10/07/16 10/08/16 18:59 06:59 Intake Total 700 Balance 700 - Medications Medications: Current Medications Acetaminophen (Tylenol 325mg Tab) 650 mg PO Q6 PRN PRN Reason: Headache Last Admin: 10/07/16 10:22 Dose: 650 mg Digoxin (Lanoxin) 0.125 mg PO DAILY@1800 [facility] Last Admin: 10/07/16 17:08 Dose: 0.125 mg Glipizide (Glucotrol Xl) 5 mg PO BID [facility] Last Admin: 10/07/16 17:08 Dose: 5 mg Piperacillin Sod/Tazobactam Sod (Zosyn 3.375 Gm Iv Premix) 3.375 gm in 50 mls @ 100 mls/hr IVPB Q8 [facility] Last Admin: 10/07/16 21:05 Dose: 100 mls/hr Sodium Chloride (Sodium Chloride 0.9%) 1,000 mls @ 50 mls/hr IV .Q20H [facility] Last Admin: 10/07/16 12:45 Dose: Not Given Linezolid (Zyvox 600mg/300ml D5w) 600 mg in 300 mls @ 200 mls/hr IVPB Q12 [facility] Last Admin: 10/07/16 21:05 Dose: 200 mls/hr Insulin Aspart (Novolog) 0 unit SC ACHS [facility] PRN Reason: Protocol Last Admin: 10/07/16 17:07 Dose: 2 unit Metoprolol Tartrate (Lopressor) 50 mg PO BID [facility] Last Admin: 10/07/16 17:07 Dose: 50 mg Montelukast Sodium (Singulair) 10 mg PO HS [facility] Last Admin: 10/07/16 21:05 Dose: 10 mg Pantoprazole Sodium (Protonix Ec Tab) 40 mg PO DAILY [facility] Last Admin: 10/07/16 10:23 Dose: 40 mg Rosuvastatin Calcium (Crestor) 5 mg PO HS [facility] Last Admin: 10/07/16 21:05 Dose: 5 mg Fluticasone/Salmeterol (Advair Diskus 250/50) 1 puff INH RQ12 [facility] Last Admin: 10/07/16 08:08 Dose: 1 puff - Labs Labs: 10/07/16 06:53 10/07/16 06:53 PT 62.3 SECONDS (9.7-12.2) H* D 10/07/16 06:53 INR 5.2 D 10/07/16 06:53 APTT 35 SECONDS (21-34) H D 10/03/16 07:48 - Constitutional Appears: No Acute Distress - Head Exam Head Exam: NORMAL INSPECTION - Eye Exam Eye Exam: EOMI, PERRL - ENT Exam ENT Exam: Normal Oropharynx - Neck Exam Neck Exam: Normal Inspection - Respiratory Exam Respiratory Exam: Rhonchi (scattered rhonchi), NORMAL BREATHING PATTERN - Cardiovascular Exam Cardiovascular Exam: REGULAR RHYTHM, +S1, +S2 - GI/Abdominal Exam GI & Abdominal Exam: Soft, Normal Bowel Sounds - Neurological Exam Neurological Exam: Awake, CN II-XII Intact, Oriented x3 - Psychiatric Exam Psychiatric exam: Normal Mood - Skin Skin Exam: Normal Color, Warm Assessment and Plan (1) Sepsis Assessment & Plan: Continue IV Zosyn 3.375 every 8 hourly. 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 10/06/16 Follow-up cultures and adjust antibiotics. Status: Acute (2) Respiratory distress Assessment & Plan: Will review CT of the chest ,abdomen and pelvis continue pulmonary toilet and IV antibiotics. Status: Acute (3) COPD exacerbation Status: Acute (4) Lung mass Status: Acute (5) Renal insufficiency Assessment & Plan: 10/07/16 creatinine 1.5/bun 12.. Status: Acute (6) Lung cancer Assessment & Plan: will review ct abdomen and pelvis and chest for staging of the cancer of lung as per oncologist. Status: Acute
[2016-10-08] MEDS: Piperacill/Tazo 3.375gm in Dex 3.375 GM/50 ML BAG IVPB SCH ×3 (05:39→21:06)
[2016-10-08 06:20] LABS: HEMATOCRIT 29.8 % (34.0-47.0); MEAN CELL VOLUME 81.5 fL (81.0-99.0); MEAN CORPUSCULAR HEMOGLOBIN 26.1 pg (27.0-31.0); MEAN PLATELET VOLUME 6.7 fL (7.2-11.7); RED CELL DISTRIBUTION WIDTH 17.4 % (11.5-14.5); WHITE BLOOD COUNT 10.9 K/uL (4.8-10.8)
[2016-10-08 06:24] LABS: INR 2.6
[2016-10-08 06:28] LABS: ALB/GLOB RATIO 0.9 (1.0-2.1); BILIRUBIN,DIRECT 0.1 mg/dL (0.0-0.4); BILIRUBIN,TOTAL 0.1 mg/dL (0.2-1.3); CALCIUM 9.5 mg/dl (8.6-10.4); POTASSIUM 3.8 mmol/L (3.6-5.2); TOTAL PROTEIN 5.4 g/dL (6.3-8.3)
[2016-10-08 07:30] LABS: RBC URINE 3 /hpf (0-3); URINE BACTERIA RARE (<OCC); URINE BILIRUBIN NEGATIVE (NEGATIVE); URINE BLOOD 1+ (NEGATIVE); URINE COLOR Straw (YELLOW); URINE GLUCOSE (UA) NORMAL (Normal); URINE KETONE NEGATIVE (NEGATIVE); URINE LEUKOCYTE ESTERASE 1+ Leu/uL (Negative); URINE PROTEIN 1+ mg/dL (NEGATIVE); URINE UROBILINOGEN NORMAL mg/dL (0.2-1.0); WBC URINE 12 /hpf (0-5)
[2016-10-08] MEDS: Fluticasone-Salmeterol 250-50mcg Diskus INH SCH ×2 (07:46→19:48)
[2016-10-08] MEDS: (Novolog) Insulin Aspart, Recombinant 100 u/ml 10 ml vial SC SCH ×4 (08:23→21:07)
[2016-10-08] MEDS: Pantoprazole 40 mg EC Tab PO SCH (09:25)
[2016-10-08] MEDS: Linezolid 600 mg in D5W 300 ml 600 MG/300 ML BAG IVPB SCH ×2 (09:26→21:06)
[2016-10-08] MEDS: GlipiZIDE 5 mg SR Tab PO SCH ×2 (09:29→17:31)
[2016-10-08] MEDS: Sodium Chloride 0.9% 1,000 ML IV SCH (09:29)
--- NOTE | 2016-10-08 09:51 | PN ---
ADDENDUM As of 10/08/2016 to 10/19/2016, I will be covered by Dr. Don Wharton. Isak Mark MD
[2016-10-08 12:15] LABS: POTASSIUM 3.8 mmol/L (3.6-5.2)
[2016-10-08 12:17] LABS: ALB/GLOB RATIO 0.8 (1.0-2.1); BILIRUBIN,TOTAL 0.5 mg/dL (0.2-1.3); TOTAL PROTEIN 6.3 g/dL (6.3-8.3)
[2016-10-08 12:18] LABS: CALCIUM 10.1 mg/dl (8.6-10.4)
[2016-10-08] MEDS: Oxycodone/Acetaminophen 5/325 mg Tab PO PRN (16:06)
--- NOTE | 2016-10-08 16:14 | CP.PCM.PN ---
Subjective - Date & Time of Evaluation Date of Evaluation: 10/08/16 Time of Evaluation: 16:14 - Subjective Subjective: afebrile, less short of breath, LESS COUGH DENIES ANY DYSURIA, VOIDING ON HER own. ALL CULTURES NEGATIVE TO DATE.. Objective - Vital Signs/Intake and Output Vital Signs (last 24 hours): Temp Pulse Resp BP Pulse Ox 98.4 F 106 H 18 130/77 100 10/08/16 07:40 10/08/16 11:59 10/08/16 07:40 10/08/16 07:40 10/08/16 07:40 Intake and Output: 10/08/16 10/08/16 06:59 18:59 Intake Total 1325 1974 Output Total 800 Balance 525 1974 - Medications Medications: Current Medications Digoxin (Lanoxin) 0.125 mg PO DAILY@1800 [facility] Last Admin: 10/07/16 17:08 Dose: 0.125 mg Glipizide (Glucotrol Xl) 5 mg PO BID [facility] Last Admin: 10/08/16 09:29 Dose: Not Given Piperacillin Sod/Tazobactam Sod (Zosyn 3.375 Gm Iv Premix) 3.375 gm in 50 mls @ 100 mls/hr IVPB Q8 [facility] Last Admin: 10/08/16 13:18 Dose: 100 mls/hr Sodium Chloride (Sodium Chloride 0.9%) 1,000 mls @ 50 mls/hr IV .Q20H [facility] Last Admin: 10/08/16 09:29 Dose: Not Given Linezolid (Zyvox 600mg/300ml D5w) 600 mg in 300 mls @ 200 mls/hr IVPB Q12 [facility] Last Admin: 10/08/16 09:26 Dose: 200 mls/hr Insulin Aspart (Novolog) 0 unit SC ACHS [facility] PRN Reason: Protocol Last Admin: 10/08/16 12:10 Dose: Not Given Metoprolol Tartrate (Lopressor) 50 mg PO BID [facility] Last Admin: 10/08/16 09:25 Dose: 50 mg Montelukast Sodium (Singulair) 10 mg PO HS [facility] Last Admin: 10/07/16 21:05 Dose: 10 mg Oxycodone/Acetaminophen (Percocet 5/325 Mg Tab) 1 tab PO Q6H PRN PRN Reason: Pain, moderate (4-7) Stop: 10/11/16 15:56 Last Admin: 10/08/16 16:06 Dose: 1 tab Pantoprazole Sodium (Protonix Ec Tab) 40 mg PO DAILY [facility] Last Admin: 10/08/16 09:25 Dose: 40 mg Rosuvastatin Calcium (Crestor) 5 mg PO HS [facility] Last Admin: 10/07/16 21:05 Dose: 5 mg Fluticasone/Salmeterol (Advair Diskus 250/50) 1 puff INH RQ12 [facility] Last Admin: 10/08/16 07:46 Dose: 1 puff - Labs Labs: 10/08/16 06:07 10/08/16 11:45 PT 30.0 SECONDS (9.7-12.2) H* D 10/08/16 06:07 INR 2.6 D 10/08/16 06:07 APTT 35 SECONDS (21-34) H D 10/03/16 07:48 - Constitutional Appears: No Acute Distress, Chronically Ill - Eye Exam Eye Exam: EOMI, PERRL - ENT Exam ENT Exam: Normal Oropharynx - Neck Exam Neck Exam: Normal Inspection - Respiratory Exam Respiratory Exam: Rhonchi (BILATERAL SCATTERED.), NORMAL BREATHING PATTERN - Cardiovascular Exam Cardiovascular Exam: Tachycardia, REGULAR RHYTHM, +S1, +S2 - GI/Abdominal Exam GI & Abdominal Exam: Soft, Normal Bowel Sounds. absent: Tenderness - Extremities Exam Extremities Exam: Normal Capillary Refill. absent: Calf Tenderness - Neurological Exam Neurological Exam: Awake, CN II-XII Intact, Oriented x3, Reflexes Normal - Psychiatric Exam Psychiatric exam: Normal Mood - Skin Skin Exam: Normal Color, Warm Assessment and Plan (1) Sepsis Assessment & Plan: ALL CULTURES NEGATIVE TO DATE. wbc 10.9 IMPROVING H/H 9.07/2927 IMPROVING. HEPATITIS SCREEN NEGATIVE Status: Acute (2) Respiratory distress Assessment & Plan: Continue IV Zosyn 3.375 every 8 hourly. 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 10/06/16. Ct CHESTABDOMEN AND PELVIS WITH BY MOUTH CONTRAST 10/06/16. MASS RIGHT UPPER LOBE, SMALL OVOID MASS LEFT UPPER LOBE. CAVITARY LESION LEFT LUNG, BIBASILAR ATELECTASIS.? NECROTIC TUMOR LOW ATTENUATION LESION SEEN IN THE DOME OF THE LIVER. ? METASTATIC INFLAMMATORY CHANGES RIGHT COLON ? COLITIS MALROTATED LEFT KIDNEY WITH PARAPELVIC CYST AND DILATATION OF BILATERAL RENAL PELVIS. RIGHT KIDNEY ATROPHIC (SEE FULL REPORT ) WILL DISCUSS FINDINGS WITH HEMATOLOGY ONCOLOGY/ PMD. CONSIDER PULMONARY EVALUATION TO R/O INFECTIOUS VS MALGNANT ETIOLOGY OF LEFT LUNG CAVITARY LEISION. CASE DISCUSSED WITH [employer] DES[employer]ER MS. DALEY. Status: Acute (3) COPD exacerbation Status: Acute (4) Lung mass Status: Acute (5) Renal insufficiency Status: Acute (6) Lung cancer Status: Acute
--- NOTE | 2016-10-08 17:00 | CP.PCM.PN ---
Subjective - Date & Time of Evaluation Date of Evaluation: 10/08/16 Time of Evaluation: 16:58 - Subjective Subjective: PT SEEN BY DR. FRASER TODAY; DISCUSSED LABS WITH HER. OK TO D/C PT HOME TOMORROW PER HER WITH AUGMENTIN 500 MG PO TID X5 DAYS. PENDING AM LABS. LIKELY D/C HOME IF PT REMAINS AFEBRILE AND STABLE. INR IS 2.6 TODAY; LEFT MESSAGE FOR DR. JENKINS REGARDING POSS D/C TOMORROW AND COUMADIN RECOMMENDATIONS. WILL F/U WITH PT AND DIPSO TOMORROW. Objective - Vital Signs/Intake and Output Vital Signs (last 24 hours): Temp Pulse Resp BP Pulse Ox 98.4 F 106 H 18 130/77 100 10/08/16 07:40 10/08/16 11:59 10/08/16 07:40 10/08/16 07:40 10/08/16 07:40 Intake and Output: 10/08/16 10/08/16 06:59 18:59 Intake Total 1325 1975 Output Total 800 Balance 525 1974 - Medications Medications: Current Medications Digoxin (Lanoxin) 0.125 mg PO DAILY@1800 [facility] Last Admin: 10/07/16 17:08 Dose: 0.125 mg Glipizide (Glucotrol Xl) 5 mg PO BID [facility] Last Admin: 10/08/16 09:29 Dose: Not Given Piperacillin Sod/Tazobactam Sod (Zosyn 3.375 Gm Iv Premix) 3.375 gm in 50 mls @ 100 mls/hr IVPB Q8 [facility] Last Admin: 10/08/16 13:18 Dose: 100 mls/hr Sodium Chloride (Sodium Chloride 0.9%) 1,000 mls @ 50 mls/hr IV .Q20H [facility] Last Admin: 10/08/16 09:29 Dose: Not Given Linezolid (Zyvox 600mg/300ml D5w) 600 mg in 300 mls @ 200 mls/hr IVPB Q12 [facility] Last Admin: 10/08/16 09:26 Dose: 200 mls/hr Insulin Aspart (Novolog) 0 unit SC ACHS [facility] PRN Reason: Protocol Last Admin: 10/08/16 12:10 Dose: Not Given Metoprolol Tartrate (Lopressor) 50 mg PO BID [facility] Last Admin: 10/08/16 09:25 Dose: 50 mg Montelukast Sodium (Singulair) 10 mg PO HS [facility] Last Admin: 10/07/16 21:05 Dose: 10 mg Oxycodone/Acetaminophen (Percocet 5/325 Mg Tab) 1 tab PO Q6H PRN PRN Reason: Pain, moderate (4-7) Stop: 10/11/16 15:56 Last Admin: 10/08/16 16:06 Dose: 1 tab Pantoprazole Sodium (Protonix Ec Tab) 40 mg PO DAILY [facility] Last Admin: 10/08/16 09:25 Dose: 40 mg Rosuvastatin Calcium (Crestor) 5 mg PO HS [facility] Last Admin: 10/07/16 21:05 Dose: 5 mg Fluticasone/Salmeterol (Advair Diskus 250/50) 1 puff INH RQ12 [facility] Last Admin: 10/08/16 07:46 Dose: 1 puff - Labs Labs: 10/08/16 06:07 10/08/16 11:45 PT 30.0 SECONDS (9.7-12.2) H* D 10/08/16 06:07 INR 2.6 D 10/08/16 06:07 APTT 35 SECONDS (21-34) H D 10/03/16 07:48
[2016-10-08] MEDS: Digoxin 125 mcg (0.125 mg) Tab PO SCH (17:32)
--- NOTE | 2016-10-08 19:22 | CP.PCM.PN ---
Subjective - Date & Time of Evaluation Date of Evaluation: 10/08/16 Time of Evaluation: 08:10 - Subjective Subjective: clinically same Objective - Vital Signs/Intake and Output Vital Signs (last 24 hours): Temp Pulse Resp BP Pulse Ox 98.8 F 100 H 20 133/69 100 10/08/16 16:00 10/08/16 16:00 10/08/16 16:00 10/08/16 16:00 10/08/16 16:00 Intake and Output: 10/08/16 10/09/16 18:59 06:59 Intake Total 1975 Balance 1974 - Medications Medications: Current Medications Digoxin (Lanoxin) 0.125 mg PO DAILY@1800 [facility] Last Admin: 10/08/16 17:32 Dose: 0.125 mg Glipizide (Glucotrol Xl) 5 mg PO BID [facility] Last Admin: 10/08/16 17:31 Dose: Not Given Piperacillin Sod/Tazobactam Sod (Zosyn 3.375 Gm Iv Premix) 3.375 gm in 50 mls @ 100 mls/hr IVPB Q8 [facility] Last Admin: 10/08/16 13:18 Dose: 100 mls/hr Sodium Chloride (Sodium Chloride 0.9%) 1,000 mls @ 50 mls/hr IV .Q20H [facility] Last Admin: 10/08/16 09:29 Dose: Not Given Linezolid (Zyvox 600mg/300ml D5w) 600 mg in 300 mls @ 200 mls/hr IVPB Q12 [facility] Last Admin: 10/08/16 09:26 Dose: 200 mls/hr Insulin Aspart (Novolog) 0 unit SC ACHS [facility] PRN Reason: Protocol Last Admin: 10/08/16 12:10 Dose: Not Given Metoprolol Tartrate (Lopressor) 50 mg PO BID [facility] Last Admin: 10/08/16 17:31 Dose: 50 mg Montelukast Sodium (Singulair) 10 mg PO HS [facility] Last Admin: 10/07/16 21:05 Dose: 10 mg Oxycodone/Acetaminophen (Percocet 5/325 Mg Tab) 1 tab PO Q6H PRN PRN Reason: Pain, moderate (4-7) Stop: 10/11/16 15:56 Last Admin: 10/08/16 16:06 Dose: 1 tab Pantoprazole Sodium (Protonix Ec Tab) 40 mg PO DAILY [facility] Last Admin: 10/08/16 09:25 Dose: 40 mg Rosuvastatin Calcium (Crestor) 5 mg PO HS [facility] Last Admin: 10/07/16 21:05 Dose: 5 mg Fluticasone/Salmeterol (Advair Diskus 250/50) 1 puff INH RQ12 [facility] Last Admin: 10/08/16 07:46 Dose: 1 puff - Labs Labs: 10/08/16 06:07 10/08/16 11:45 PT 30.0 SECONDS (9.7-12.2) H* D 10/08/16 06:07 INR 2.6 D 10/08/16 06:07 APTT 35 SECONDS (21-34) H D 10/03/16 07:48 - Constitutional Appears: Well - Head Exam Head Exam: ATRAUMATIC, NORMAL INSPECTION, NORMOCEPHALIC - Eye Exam Eye Exam: EOMI, Normal appearance, PERRL - ENT Exam ENT Exam: Mucous Membranes Moist, Normal Exam - Neck Exam Neck Exam: Full ROM, Normal Inspection. absent: Lymphadenopathy - Respiratory Exam Respiratory Exam: Decreased Breath Sounds - Cardiovascular Exam Cardiovascular Exam: REGULAR RHYTHM, +S1, +S2. absent: Murmur - GI/Abdominal Exam GI & Abdominal Exam: Diminished Bowel Sounds - Rectal Exam Rectal Exam: Deferred Assessment and Plan (1) Acute gout of right knee Status: Acute (2) Acute kidney injury Status: Acute (3) Acute renal insufficiency Status: Acute (4) Anemia Status: Acute (5) Asthma exacerbation Status: Acute (6) Bleeding risk due to Coumadin and aspirin Status: Acute (7) CAD (coronary artery disease) Status: Acute (8) CKD (chronic kidney disease) Status: Acute (9) COPD exacerbation Status: Acute (10) Chest pain Status: Acute (11) Chest pain Status: Acute (12) Chronic congestive heart failure Status: Acute (13) Coagulopathy Status: Acute (14) Dehydration Status: Acute (15) Diabetes Status: Acute (16) Drug toxicity Status: Acute (17) Elevated brain natriuretic peptide (BNP) level Status: Acute (18) Epistaxis Status: Acute (19) Exacerbation of asthma Status: Acute (20) Hyperglycemia Status: Acute (21) Hypertension Status: Acute (22) Hypochloremia Status: Acute (23) Hypokalemia Status: Acute (24) Hypokalemia Status: Acute (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 Status: Acute (26) Lung cancer Status: Acute (27) Lung mass Status: Acute (28) NSTEMI (non-ST elevated myocardial infarction) Status: Acute (29) Pancytopenia due to chemotherapy Status: Acute (30) Pneumonia Status: Acute (31) Pulmonary HTN Status: Acute (32) Pulmonary edema Status: Acute (33) Pulmonary embolism Status: Acute (34) Renal failure Status: Acute (35) Renal insufficiency Status: Acute (36) Respiratory distress Status: Acute (37) Respiratory failure with hypoxia Status: Acute (38) Right knee DJD Status: Acute (39) SOB (shortness of breath) Status: Acute (40) SVT (supraventricular tachycardia) Status: Acute (41) Sepsis Status: Acute (42) Sepsis Status: Acute (43) Septic arthritis Status: Acute (44) Steroid-induced hyperglycemia Status: Acute (45) Symptomatic anemia Status: Acute (46) Tachycardia Status: Acute (47) Troponin level elevated Status: Acute (48) Uncontrolled diabetes mellitus with diabetic nephropathy Status: Acute - Assessment and Plan (Free Text) Plan: Case discussed with staff and resident Patient clinically improving Continue Zosyn IV fluids Accu-Cheks Insulin IV fluids Lopressor Follow-up with labs
[2016-10-09] MEDS: Oxycodone/Acetaminophen 5/325 mg Tab PO PRN ×3 (00:09→19:11)
[2016-10-09] MEDS: Sodium Chloride 0.9% 1,000 ML IV SCH ×2 (04:45→17:44)
[2016-10-09] MEDS: Piperacill/Tazo 3.375gm in Dex 3.375 GM/50 ML BAG IVPB SCH ×3 (05:23→21:45)
[2016-10-09 07:12] LABS: INR 1.5
[2016-10-09 07:14] LABS: BASO % 0.2 % (0.0-2.0); EOS # 0.1 K/uL (0.0-0.7); EOS % 0.8 % (0.0-4.0); HEMATOCRIT 30.2 % (34.0-47.0); LYMPH # 1.4 K/uL (1.0-4.3); LYMPH % 12.8 % (20.0-40.0); MEAN CELL VOLUME 83.1 fL (81.0-99.0); MEAN CORPUSCULAR HEMOGLOBIN 25.7 pg (27.0-31.0); MEAN PLATELET VOLUME 7.1 fL (7.2-11.7); MONO # 1.3 K/uL (0.0-0.8); NRBC % 0.1 % (0.0-2.0); WHITE BLOOD COUNT 11.2 K/uL (4.8-10.8)
[2016-10-09 07:19] LABS: CALCIUM 9.4 mg/dl (8.6-10.4); POTASSIUM 3.9 mmol/L (3.6-5.2)
[2016-10-09] MEDS: (Novolog) Insulin Aspart, Recombinant 100 u/ml 10 ml vial SC SCH ×4 (07:30→21:46)
[2016-10-09] MEDS: Fluticasone-Salmeterol 250-50mcg Diskus INH SCH ×2 (08:33→19:54)
[2016-10-09] MEDS: Linezolid 600 mg in D5W 300 ml 600 MG/300 ML BAG IVPB SCH ×2 (10:00→21:51)
[2016-10-09] MEDS: GlipiZIDE 5 mg SR Tab PO SCH ×3 (10:15→19:55)
[2016-10-09] MEDS: Pantoprazole 40 mg EC Tab PO SCH (10:15)
--- NOTE | 2016-10-09 13:23 | CP.PCM.PN ---
Subjective - Date & Time of Evaluation Date of Evaluation: 10/09/16 Time of Evaluation: 13:23 - Subjective Subjective: Patient seen and examined Chart reviewed Pulmonary coverage for Dr. Casillas Objective - Vital Signs/Intake and Output Vital Signs (last 24 hours): Temp Pulse Resp BP Pulse Ox 98.9 F 92 H 20 127/56 L 100 10/09/16 08:34 10/09/16 08:34 10/09/16 08:34 10/09/16 08:34 10/09/16 08:34 Intake and Output: 10/09/16 10/09/16 06:59 18:59 Intake Total 1820 Balance 1820 - Medications Medications: Current Medications Digoxin (Lanoxin) 0.125 mg PO DAILY@1800 [facility] Last Admin: 10/08/16 17:32 Dose: 0.125 mg Glipizide (Glucotrol Xl) 5 mg PO BID [facility] Last Admin: 10/09/16 10:15 Dose: 5 mg Piperacillin Sod/Tazobactam Sod (Zosyn 3.375 Gm Iv Premix) 3.375 gm in 50 mls @ 100 mls/hr IVPB Q8 [facility] Last Admin: 10/09/16 13:20 Dose: 100 mls/hr Sodium Chloride (Sodium Chloride 0.9%) 1,000 mls @ 50 mls/hr IV .Q20H [facility] Last Admin: 10/09/16 04:45 Dose: Not Given Linezolid (Zyvox 600mg/300ml D5w) 600 mg in 300 mls @ 200 mls/hr IVPB Q12 [facility] Last Admin: 10/09/16 10:00 Dose: 200 mls/hr Insulin Aspart (Novolog) 0 unit SC ACHS [facility] PRN Reason: Protocol Last Admin: 10/09/16 12:11 Dose: 2 unit Metoprolol Tartrate (Lopressor) 50 mg PO BID [facility] Last Admin: 10/09/16 10:15 Dose: 50 mg Montelukast Sodium (Singulair) 10 mg PO HS [facility] Last Admin: 10/08/16 21:06 Dose: 10 mg Oxycodone/Acetaminophen (Percocet 5/325 Mg Tab) 1 tab PO Q6H PRN PRN Reason: Pain, moderate (4-7) Stop: 10/11/16 15:56 Last Admin: 10/09/16 05:56 Dose: 1 tab Pantoprazole Sodium (Protonix Ec Tab) 40 mg PO DAILY [facility] Last Admin: 10/09/16 10:15 Dose: 40 mg Rosuvastatin Calcium (Crestor) 5 mg PO HS [facility] Last Admin: 10/08/16 21:06 Dose: 5 mg Fluticasone/Salmeterol (Advair Diskus 250/50) 1 puff INH RQ12 [facility] Last Admin: 10/09/16 08:33 Dose: 1 puff - Labs Labs: 10/09/16 06:44 10/09/16 06:40 PT 17.0 SECONDS (9.7-12.2) H D 10/09/16 06:44 INR 1.5 D 10/09/16 06:44 APTT 35 SECONDS (21-34) H D 10/03/16 07:48 - Head Exam Head Exam: NORMAL INSPECTION - Eye Exam Eye Exam: Normal appearance - ENT Exam ENT Exam: Mucous Membranes Moist - Respiratory Exam Respiratory Exam: Rhonchi, NORMAL BREATHING PATTERN - Cardiovascular Exam Cardiovascular Exam: REGULAR RHYTHM, +S1, +S2 - GI/Abdominal Exam GI & Abdominal Exam: Soft, Normal Bowel Sounds - Extremities Exam Extremities Exam: Normal Inspection Assessment and Plan - Assessment and Plan (Free Text) Assessment: Lung cancer COPD exacerbation Pulmonary embolism Respiratory failure with hypoxemia Hypertension Diabetes Continue Zosyn Follow cultures Advair 250/50 micrograms 1 puff every 12 hours Singular 10 mg nightly Bronchodilators DVT/GI prophylaxis
--- NOTE | 2016-10-09 15:39 | CP.PCM.PN ---
Subjective - Date & Time of Evaluation Date of Evaluation: 10/09/16 Time of Evaluation: 15:39 - Subjective Subjective: ALL ARRANGEMENTS FOR PT'S D/C DONE AND PT WAS TO GO TO [facility] TODAY. TEMP AT APPROX 1530 WAS 101 AND RECHECK TWICE AFTER WITH READINGS OF 102. DR. CLARK INFORMED. DR. FRASER INFORMED. D/C HELD FOR NOW. STAT BLOOD CX AND URINE CX ORDERED. DR. FRASER WILL F/U WITH PT TODAY DURING ROUNDS. LABS FOR AM ORDERED. NO FURTHER ORDERS. Objective - Vital Signs/Intake and Output Vital Signs (last 24 hours): Temp Pulse Resp BP Pulse Ox 98.9 F 92 H 20 127/56 L 100 10/09/16 08:34 10/09/16 08:34 10/09/16 08:34 10/09/16 08:34 10/09/16 08:34 Intake and Output: 10/09/16 10/09/16 06:59 18:59 Intake Total 1820 Balance 1820 - Medications Medications: Current Medications Digoxin (Lanoxin) 0.125 mg PO DAILY@1800 [facility] Last Admin: 10/08/16 17:32 Dose: 0.125 mg Glipizide (Glucotrol Xl) 5 mg PO BID [facility] Last Admin: 10/09/16 10:15 Dose: 5 mg Piperacillin Sod/Tazobactam Sod (Zosyn 3.375 Gm Iv Premix) 3.375 gm in 50 mls @ 100 mls/hr IVPB Q8 [facility] Last Admin: 10/09/16 13:20 Dose: 100 mls/hr Sodium Chloride (Sodium Chloride 0.9%) 1,000 mls @ 50 mls/hr IV .Q20H [facility] Last Admin: 10/09/16 04:45 Dose: Not Given Linezolid (Zyvox 600mg/300ml D5w) 600 mg in 300 mls @ 200 mls/hr IVPB Q12 [facility] Last Admin: 10/09/16 10:00 Dose: 200 mls/hr Insulin Aspart (Novolog) 0 unit SC ACHS [facility] PRN Reason: Protocol Last Admin: 10/09/16 12:11 Dose: 2 unit Metoprolol Tartrate (Lopressor) 50 mg PO BID [facility] Last Admin: 10/09/16 10:15 Dose: 50 mg Montelukast Sodium (Singulair) 10 mg PO HS [facility] Last Admin: 10/08/16 21:06 Dose: 10 mg Oxycodone/Acetaminophen (Percocet 5/325 Mg Tab) 1 tab PO Q6H PRN PRN Reason: Pain, moderate (4-7) Stop: 10/11/16 15:56 Last Admin: 10/09/16 05:56 Dose: 1 tab Pantoprazole Sodium (Protonix Ec Tab) 40 mg PO DAILY [facility] Last Admin: 10/09/16 10:15 Dose: 40 mg Rosuvastatin Calcium (Crestor) 5 mg PO HS [facility] Last Admin: 10/08/16 21:06 Dose: 5 mg Fluticasone/Salmeterol (Advair Diskus 250/50) 1 puff INH RQ12 [facility] Last Admin: 10/09/16 08:33 Dose: 1 puff Warfarin Sodium (Coumadin) 4 mg PO 1800 [facility] Stop: 10/09/16 18:01 - Labs Labs: 10/09/16 06:44 10/09/16 06:40 PT 17.0 SECONDS (9.7-12.2) H D 10/09/16 06:44 INR 1.5 D 10/09/16 06:44 APTT 35 SECONDS (21-34) H D 10/03/16 07:48
--- NOTE | 2016-10-09 16:20 | CP.PCM.PN ---
Subjective - Date & Time of Evaluation Date of Evaluation: 10/09/16 Time of Evaluation: 16:18 - Subjective Subjective: The patient appears weak, poor appetite, denies cough, dysuria, GI symptoms, except for constipation. Spiking temps again. Cat scans are showing some progression of the lung masses, no increase in the liver lesion. Objective - Vital Signs/Intake and Output Vital Signs (last 24 hours): Temp Pulse Resp BP Pulse Ox 98.9 F 92 H 20 127/56 L 100 10/09/16 08:34 10/09/16 08:34 10/09/16 08:34 10/09/16 08:34 10/09/16 08:34 Intake and Output: 10/09/16 10/09/16 06:59 18:59 Intake Total 1820 Balance 1820 - Medications Medications: Current Medications Digoxin (Lanoxin) 0.125 mg PO DAILY@1800 [facility] Last Admin: 10/08/16 17:32 Dose: 0.125 mg Glipizide (Glucotrol Xl) 5 mg PO BID [facility] Last Admin: 10/09/16 10:15 Dose: 5 mg Piperacillin Sod/Tazobactam Sod (Zosyn 3.375 Gm Iv Premix) 3.375 gm in 50 mls @ 100 mls/hr IVPB Q8 [facility] Last Admin: 10/09/16 13:20 Dose: 100 mls/hr Sodium Chloride (Sodium Chloride 0.9%) 1,000 mls @ 50 mls/hr IV .Q20H [facility] Last Admin: 10/09/16 04:45 Dose: Not Given Linezolid (Zyvox 600mg/300ml D5w) 600 mg in 300 mls @ 200 mls/hr IVPB Q12 [facility] Last Admin: 10/09/16 10:00 Dose: 200 mls/hr Insulin Aspart (Novolog) 0 unit SC ACHS [facility] PRN Reason: Protocol Last Admin: 10/09/16 12:11 Dose: 2 unit Metoprolol Tartrate (Lopressor) 50 mg PO BID [facility] Last Admin: 10/09/16 10:15 Dose: 50 mg Montelukast Sodium (Singulair) 10 mg PO HS [facility] Last Admin: 10/08/16 21:06 Dose: 10 mg Oxycodone/Acetaminophen (Percocet 5/325 Mg Tab) 1 tab PO Q6H PRN PRN Reason: Pain, moderate (4-7) Stop: 10/11/16 15:56 Last Admin: 10/09/16 05:56 Dose: 1 tab Pantoprazole Sodium (Protonix Ec Tab) 40 mg PO DAILY [facility] Last Admin: 10/09/16 10:15 Dose: 40 mg Rosuvastatin Calcium (Crestor) 5 mg PO HS [facility] Last Admin: 10/08/16 21:06 Dose: 5 mg Fluticasone/Salmeterol (Advair Diskus 250/50) 1 puff INH RQ12 [facility] Last Admin: 10/09/16 08:33 Dose: 1 puff Warfarin Sodium (Coumadin) 4 mg PO 1800 [facility] Stop: 10/09/16 18:01 - Labs Labs: 10/09/16 06:44 10/09/16 06:40 PT 17.0 SECONDS (9.7-12.2) H D 10/09/16 06:44 INR 1.5 D 10/09/16 06:44 APTT 35 SECONDS (21-34) H D 10/03/16 07:48 Assessment and Plan (1) Lung cancer Assessment & Plan: Metastatic lung cancer, with gradually progressive disease, has not been able to get treatment for the cancer because of her several hospitalizations. She is essentially restricted to bed, limited ability to ambulate. The source of her fever is unclear at this time with scans not showing any new infiltrate and her cultures are negative so far. ??colitis, but the patient is asymptomatic, no abdominal pain, diarrhea. ??fever of malignancy usually seen with liver mets, but no increase in liver mets seen in the non contrast cat scan. Will treat her constipation for now, repeat cultures or antibiotic change as per I.D Status: Acute
--- NOTE | 2016-10-09 16:30 | CP.PCM.PN ---
Subjective - Date & Time of Evaluation Date of Evaluation: 10/09/16 Time of Evaluation: 11:20 - Subjective Subjective: clinically same Objective - Vital Signs/Intake and Output Vital Signs (last 24 hours): Temp Pulse Resp BP Pulse Ox 98.9 F 92 H 20 127/56 L 100 10/09/16 08:34 10/09/16 08:34 10/09/16 08:34 10/09/16 08:34 10/09/16 08:34 Intake and Output: 10/09/16 10/09/16 06:59 18:59 Intake Total 1820 Balance 1820 - Medications Medications: Current Medications Acetaminophen (Tylenol 325mg Tab) 650 mg PO Q6 PRN PRN Reason: Fever >100.4 F Digoxin (Lanoxin) 0.125 mg PO DAILY@1800 [facility] Last Admin: 10/08/16 17:32 Dose: 0.125 mg Glipizide (Glucotrol Xl) 5 mg PO BID [facility] Last Admin: 10/09/16 10:15 Dose: 5 mg Piperacillin Sod/Tazobactam Sod (Zosyn 3.375 Gm Iv Premix) 3.375 gm in 50 mls @ 100 mls/hr IVPB Q8 [facility] Last Admin: 10/09/16 13:20 Dose: 100 mls/hr Sodium Chloride (Sodium Chloride 0.9%) 1,000 mls @ 50 mls/hr IV .Q20H [facility] Last Admin: 10/09/16 04:45 Dose: Not Given Linezolid (Zyvox 600mg/300ml D5w) 600 mg in 300 mls @ 200 mls/hr IVPB Q12 [facility] Last Admin: 10/09/16 10:00 Dose: 200 mls/hr Insulin Aspart (Novolog) 0 unit SC ACHS [facility] PRN Reason: Protocol Last Admin: 10/09/16 12:11 Dose: 2 unit Metoprolol Tartrate (Lopressor) 50 mg PO BID [facility] Last Admin: 10/09/16 10:15 Dose: 50 mg Montelukast Sodium (Singulair) 10 mg PO HS [facility] Last Admin: 10/08/16 21:06 Dose: 10 mg Oxycodone/Acetaminophen (Percocet 5/325 Mg Tab) 1 tab PO Q6H PRN PRN Reason: Pain, moderate (4-7) Stop: 10/11/16 15:56 Last Admin: 10/09/16 05:56 Dose: 1 tab Pantoprazole Sodium (Protonix Ec Tab) 40 mg PO DAILY [facility] Last Admin: 10/09/16 10:15 Dose: 40 mg Rosuvastatin Calcium (Crestor) 5 mg PO HS [facility] Last Admin: 10/08/16 21:06 Dose: 5 mg Fluticasone/Salmeterol (Advair Diskus 250/50) 1 puff INH RQ12 [facility] Last Admin: 10/09/16 08:33 Dose: 1 puff Senna/Docusate Sodium (Senokot S 50 Mg-8.6 Mg) 2 tab PO QPM [facility] Warfarin Sodium (Coumadin) 4 mg PO 1800 [facility] Stop: 10/09/16 18:01 - Labs Labs: 10/09/16 06:44 10/09/16 06:40 PT 17.0 SECONDS (9.7-12.2) H D 10/09/16 06:44 INR 1.5 D 10/09/16 06:44 APTT 35 SECONDS (21-34) H D 10/03/16 07:48 - Constitutional Appears: Well - Head Exam Head Exam: ATRAUMATIC, NORMAL INSPECTION, NORMOCEPHALIC - Eye Exam Eye Exam: EOMI, Normal appearance, PERRL Pupil Exam: NORMAL ACCOMODATION, PERRL - ENT Exam ENT Exam: Mucous Membranes Moist, Normal Exam - Neck Exam Neck Exam: Full ROM, Normal Inspection. absent: Lymphadenopathy - Respiratory Exam Respiratory Exam: Decreased Breath Sounds - Cardiovascular Exam Cardiovascular Exam: REGULAR RHYTHM, +S1, +S2 - GI/Abdominal Exam GI & Abdominal Exam: Soft, Diminished Bowel Sounds - Rectal Exam Rectal Exam: Deferred Assessment and Plan (1) Acute gout of right knee Status: Acute (2) Acute kidney injury Status: Acute (3) Acute renal insufficiency Status: Acute (4) Anemia Status: Acute (5) Asthma exacerbation Status: Acute (6) Bleeding risk due to Coumadin and aspirin Status: Acute (7) CAD (coronary artery disease) Status: Acute (8) CKD (chronic kidney disease) Status: Acute (9) COPD exacerbation Status: Acute (10) Chest pain Status: Acute (11) Chest pain Status: Acute (12) Chronic congestive heart failure Status: Acute (13) Coagulopathy Status: Acute (14) Dehydration Status: Acute (15) Diabetes Status: Acute (16) Drug toxicity Status: Acute (17) Elevated brain natriuretic peptide (BNP) level Status: Acute (18) Epistaxis Status: Acute (19) Exacerbation of asthma Status: Acute (20) Hyperglycemia Status: Acute (21) Hypertension Status: Acute (22) Hypochloremia Status: Acute (23) Hypokalemia Status: Acute (24) Hypokalemia Status: Acute (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 Status: Acute (26) Lung cancer Status: Acute (27) Lung mass Status: Acute (28) NSTEMI (non-ST elevated myocardial infarction) Status: Acute (29) Pancytopenia due to chemotherapy Status: Acute (30) Pneumonia Status: Acute (31) Pulmonary HTN Status: Acute (32) Pulmonary edema Status: Acute (33) Pulmonary embolism Status: Acute (34) Renal failure Status: Acute (35) Renal insufficiency Status: Acute (36) Respiratory distress Status: Acute (37) Respiratory failure with hypoxia Status: Acute (38) Right knee DJD Status: Acute (39) SOB (shortness of breath) Status: Acute (40) SVT (supraventricular tachycardia) Status: Acute (41) Sepsis Status: Acute (42) Sepsis Status: Acute (43) Septic arthritis Status: Acute (44) Steroid-induced hyperglycemia Status: Acute (45) Symptomatic anemia Status: Acute (46) Tachycardia Status: Acute (47) Troponin level elevated Status: Acute (48) Uncontrolled diabetes mellitus with diabetic nephropathy Status: Acute - Assessment and Plan (Free Text) Plan: Patient is having poor appetite, weakness Spiking temperature CAT scan report noted Continue Zosyn IV fluids Accu-Cheks Insulin Lopressor Advair Warfarin
[2016-10-09] MEDS: Digoxin 125 mcg (0.125 mg) Tab PO SCH (17:38)
--- NOTE | 2016-10-09 20:51 | CP.PCM.PN ---
Subjective - Date & Time of Evaluation Date of Evaluation: 10/09/16 Time of Evaluation: 20:51 - Subjective Subjective: spiking temperature to 101.9. Positive cough. WBC increasing to 11.2 . Case discussed with [employer] MS DALEY. DISCHARGE HELD ABNORMAL Ct OF THE CHEST ABDOMEN AND PELVIS-SEE FULL DETAILS IN REPORT. Objective - Vital Signs/Intake and Output Vital Signs (last 24 hours): Temp Pulse Resp BP Pulse Ox 99.4 F 105 H 20 157/64 H 99 10/09/16 18:30 10/09/16 17:42 10/09/16 16:00 10/09/16 17:42 10/09/16 16:00 - Medications Medications: Current Medications Acetaminophen (Tylenol 325mg Tab) 650 mg PO Q6 PRN PRN Reason: Fever >100.4 F Last Admin: 10/09/16 17:37 Dose: 650 mg Digoxin (Lanoxin) 0.125 mg PO DAILY@1800 [facility] Last Admin: 10/09/16 17:38 Dose: 0.125 mg Glipizide (Glucotrol Xl) 5 mg PO BID [facility] Last Admin: 10/09/16 19:55 Dose: Not Given Piperacillin Sod/Tazobactam Sod (Zosyn 3.375 Gm Iv Premix) 3.375 gm in 50 mls @ 100 mls/hr IVPB Q8 [facility] Last Admin: 10/09/16 13:20 Dose: 100 mls/hr Linezolid (Zyvox 600mg/300ml D5w) 600 mg in 300 mls @ 200 mls/hr IVPB Q12 [facility] Last Admin: 10/09/16 10:00 Dose: 200 mls/hr Insulin Aspart (Novolog) 0 unit SC ACHS [facility] PRN Reason: Protocol Last Admin: 10/09/16 12:11 Dose: 2 unit Metoprolol Tartrate (Lopressor) 50 mg PO BID [facility] Last Admin: 10/09/16 17:41 Dose: 50 mg Montelukast Sodium (Singulair) 10 mg PO HS [facility] Last Admin: 10/08/16 21:06 Dose: 10 mg Oxycodone/Acetaminophen (Percocet 5/325 Mg Tab) 1 tab PO Q6H PRN PRN Reason: Pain, moderate (4-7) Stop: 10/11/16 15:56 Last Admin: 10/09/16 19:11 Dose: 1 tab Pantoprazole Sodium (Protonix Ec Tab) 40 mg PO DAILY [facility] Last Admin: 10/09/16 10:15 Dose: 40 mg Rosuvastatin Calcium (Crestor) 5 mg PO HS [facility] Last Admin: 10/08/16 21:06 Dose: 5 mg Fluticasone/Salmeterol (Advair Diskus 250/50) 1 puff INH RQ12 [facility] Last Admin: 10/09/16 19:54 Dose: 1 puff Senna/Docusate Sodium (Senokot S 50 Mg-8.6 Mg) 2 tab PO QPM [facility] - Labs Labs: 10/09/16 06:44 10/09/16 06:40 PT 17.0 SECONDS (9.7-12.2) H D 10/09/16 06:44 INR 1.5 D 10/09/16 06:44 APTT 35 SECONDS (21-34) H D 10/03/16 07:48 - Constitutional Appears: No Acute Distress - Head Exam Head Exam: NORMAL INSPECTION - Eye Exam Eye Exam: EOMI, PERRL - ENT Exam ENT Exam: Normal Oropharynx - Neck Exam Neck Exam: Normal Inspection - Respiratory Exam Respiratory Exam: Rhonchi (SCATTERED RHONCHI AND RALES.) - Cardiovascular Exam Cardiovascular Exam: Tachycardia, REGULAR RHYTHM, +S1, +S2 - GI/Abdominal Exam GI & Abdominal Exam: Soft, Normal Bowel Sounds. absent: Guarding - Extremities Exam Extremities Exam: Normal Capillary Refill. absent: Calf Tenderness, Pedal Edema - Neurological Exam Neurological Exam: Awake, CN II-XII Intact, Normal Gait, Oriented x3 - Psychiatric Exam Psychiatric exam: Normal Mood - Skin Skin Exam: Normal Color, Warm Assessment and Plan (1) Sepsis Assessment & Plan: ALL CULTURES NEGATIVE TO DATE. CONTINUE iv ZOSYN 3.375 EVERY 8 HOURLY CONTINUE iv ZYVOX 600 MG EVERY 12 HOURLY FOR STAPH AND STREP COVERAGE. repeat blood cultures 2 sets today stat. Status: Acute (2) Respiratory distress Status: Acute (3) COPD exacerbation Assessment & Plan: SPUTUM gRAM STAIN AND CULTURE SPUTUM FOR FUNGUS X I SPUTUM FOR CYTOLOGY PULMONARY ON BOARD. Status: Acute (4) Lung mass Assessment & Plan: CT chest/abdomen and pelvis abnormal-see details oncology and pulmonary on board. Sputum for cytology, Sputum for fungus. Status: Acute (5) Renal insufficiency Status: Acute (6) Lung cancer Status: Acute
[2016-10-09] MEDS: Docusate-Senna 50 mg-8.6 mg Tab PO SCH (21:45)
[2016-10-10] MEDS: Piperacill/Tazo 3.375gm in Dex 3.375 GM/50 ML BAG IVPB SCH ×3 (05:18→21:38)
[2016-10-10 07:46] LABS: BASO # 0.1 K/uL (0.0-0.2); BASO % 0.5 % (0.0-2.0); EOS # 0.1 K/uL (0.0-0.7); EOS % 0.8 % (0.0-4.0); LYMPH # 1.3 K/uL (1.0-4.3); LYMPH % 12.5 % (20.0-40.0); MEAN CELL VOLUME 81.6 fL (81.0-99.0); MEAN CORPUSCULAR HEMOGLOBIN 25.8 pg (27.0-31.0); MEAN CORPUSCULAR HGB CONC 31.6 g/dL (33.0-37.0); MEAN PLATELET VOLUME 6.9 fL (7.2-11.7); MONO % 9.5 % (0.0-10.0); WHITE BLOOD COUNT 10.5 K/uL (4.8-10.8)
[2016-10-10 07:47] LABS: INR 1.4
[2016-10-10] MEDS: (Novolog) Insulin Aspart, Recombinant 100 u/ml 10 ml vial SC SCH ×4 (07:49→21:45)
[2016-10-10 08:20] LABS: POTASSIUM 3.8 mmol/L (3.6-5.2)
[2016-10-10 08:22] LABS: ALB/GLOB RATIO 0.7 (1.0-2.1); BILIRUBIN,TOTAL 0.5 mg/dL (0.2-1.3); TOTAL PROTEIN 5.8 g/dL (6.3-8.3)
[2016-10-10 08:23] LABS: CALCIUM 9.6 mg/dl (8.6-10.4)
[2016-10-10] MEDS: Fluticasone-Salmeterol 250-50mcg Diskus INH SCH (08:38)
[2016-10-10] MEDS: Oxycodone/Acetaminophen 5/325 mg Tab PO PRN ×2 (09:07→16:10)
[2016-10-10] MEDS: GlipiZIDE 5 mg SR Tab PO SCH ×2 (09:07→17:53)
[2016-10-10] MEDS: Pantoprazole 40 mg EC Tab PO SCH (09:08)
[2016-10-10] MEDS: Linezolid 600 mg in D5W 300 ml 600 MG/300 ML BAG IVPB SCH ×2 (09:21→22:14)
--- NOTE | 2016-10-10 12:13 | CP.PCM.PN ---
Subjective - Date & Time of Evaluation Date of Evaluation: 10/10/16 Time of Evaluation: 10:40 - Subjective Subjective: clinically same Objective - Vital Signs/Intake and Output Vital Signs (last 24 hours): Temp Pulse Resp BP Pulse Ox 99.8 F H 104 H 21 144/79 100 10/10/16 08:11 10/10/16 08:11 10/10/16 08:11 10/10/16 08:11 10/10/16 08:11 Intake and Output: 10/10/16 10/10/16 06:59 18:59 Intake Total 1980 Output Total 700 Balance 1280 - Medications Medications: Current Medications Acetaminophen (Tylenol 325mg Tab) 650 mg PO Q6 PRN PRN Reason: Fever >100.4 F Last Admin: 10/09/16 17:37 Dose: 650 mg Digoxin (Lanoxin) 0.125 mg PO DAILY@1800 [facility] Last Admin: 10/09/16 17:38 Dose: 0.125 mg Glipizide (Glucotrol Xl) 5 mg PO BID [facility] Last Admin: 10/10/16 09:07 Dose: 5 mg Piperacillin Sod/Tazobactam Sod (Zosyn 3.375 Gm Iv Premix) 3.375 gm in 50 mls @ 100 mls/hr IVPB Q8 [facility] Last Admin: 10/10/16 05:18 Dose: 100 mls/hr Linezolid (Zyvox 600mg/300ml D5w) 600 mg in 300 mls @ 200 mls/hr IVPB Q12 [facility] Last Admin: 10/10/16 09:21 Dose: 200 mls/hr Insulin Aspart (Novolog) 0 unit SC ACHS [facility] PRN Reason: Protocol Last Admin: 10/10/16 12:01 Dose: Not Given Metoprolol Tartrate (Lopressor) 50 mg PO BID [facility] Last Admin: 10/10/16 09:07 Dose: 50 mg Montelukast Sodium (Singulair) 10 mg PO HS [facility] Last Admin: 10/09/16 21:45 Dose: 10 mg Oxycodone/Acetaminophen (Percocet 5/325 Mg Tab) 1 tab PO Q6H PRN PRN Reason: Pain, moderate (4-7) Stop: 10/11/16 15:56 Last Admin: 10/10/16 09:07 Dose: 1 tab Pantoprazole Sodium (Protonix Ec Tab) 40 mg PO DAILY [facility] Last Admin: 10/10/16 09:08 Dose: 40 mg Rosuvastatin Calcium (Crestor) 5 mg PO HS [facility] Last Admin: 10/09/16 21:45 Dose: 5 mg Fluticasone/Salmeterol (Advair Diskus 250/50) 1 puff INH RQ12 [facility] Last Admin: 10/10/16 08:38 Dose: 1 puff Senna/Docusate Sodium (Senokot S 50 Mg-8.6 Mg) 2 tab PO QPM [facility] Last Admin: 10/09/16 21:45 Dose: 2 tab Warfarin Sodium (Coumadin) 4 mg PO 1800 [facility] Stop: 10/10/16 18:01 - Labs Labs: 10/10/16 07:33 10/10/16 07:33 PT 16.0 SECONDS (9.7-12.2) H 10/10/16 07:33 INR 1.4 10/10/16 07:33 APTT 35 SECONDS (21-34) H D 10/03/16 07:48 - Constitutional Appears: Well - Head Exam Head Exam: ATRAUMATIC, NORMAL INSPECTION, NORMOCEPHALIC - Eye Exam Eye Exam: EOMI, Normal appearance, PERRL Pupil Exam: NORMAL ACCOMODATION, PERRL - ENT Exam ENT Exam: Mucous Membranes Moist, Normal Exam - Neck Exam Neck Exam: Full ROM, Normal Inspection. absent: Lymphadenopathy - Respiratory Exam Respiratory Exam: Decreased Breath Sounds - Cardiovascular Exam Cardiovascular Exam: REGULAR RHYTHM, +S1, +S2 - GI/Abdominal Exam GI & Abdominal Exam: Soft, Diminished Bowel Sounds - Rectal Exam Rectal Exam: Deferred Assessment and Plan (1) Acute gout of right knee Status: Acute (2) Acute kidney injury Status: Acute (3) Acute renal insufficiency Status: Acute (4) Anemia Status: Acute (5) Asthma exacerbation Status: Acute (6) Bleeding risk due to Coumadin and aspirin Status: Acute (7) CAD (coronary artery disease) Status: Acute (8) CKD (chronic kidney disease) Status: Acute (9) COPD exacerbation Status: Acute (10) Chest pain Status: Acute (11) Chest pain Status: Acute (12) Chronic congestive heart failure Status: Acute (13) Coagulopathy Status: Acute (14) Dehydration Status: Acute (15) Diabetes Status: Acute (16) Drug toxicity Status: Acute (17) Elevated brain natriuretic peptide (BNP) level Status: Acute (18) Epistaxis Status: Acute (19) Exacerbation of asthma Status: Acute (20) Hyperglycemia Status: Acute (21) Hypertension Status: Acute (22) Hypochloremia Status: Acute (23) Hypokalemia Status: Acute (24) Hypokalemia Status: Acute (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 Status: Acute (26) Lung cancer Status: Acute (27) Lung mass Status: Acute (28) NSTEMI (non-ST elevated myocardial infarction) Status: Acute (29) Pancytopenia due to chemotherapy Status: Acute (30) Pneumonia Status: Acute (31) Pulmonary HTN Status: Acute (32) Pulmonary edema Status: Acute (33) Pulmonary embolism Status: Acute (34) Renal failure Status: Acute (35) Renal insufficiency Status: Acute (36) Respiratory distress Status: Acute (37) Respiratory failure with hypoxia Status: Acute (38) Right knee DJD Status: Acute (39) SOB (shortness of breath) Status: Acute (40) SVT (supraventricular tachycardia) Status: Acute (41) Sepsis Status: Acute (42) Sepsis Status: Acute (43) Septic arthritis Status: Acute (44) Steroid-induced hyperglycemia Status: Acute (45) Symptomatic anemia Status: Acute (46) Tachycardia Status: Acute (47) Troponin level elevated Status: Acute (48) Uncontrolled diabetes mellitus with diabetic nephropathy Status: Acute - Assessment and Plan (Free Text) Plan: Patient hemodynamically stable Temperature trending down Tachycardic Hemato-oncology follow-up Encourage for food intake Accu-Cheks Insulin Continue Zosyn Advair Physical therapy
[2016-10-10] MEDS: Digoxin 125 mcg (0.125 mg) Tab PO SCH (17:53)
[2016-10-10] MEDS: Docusate-Senna 50 mg-8.6 mg Tab PO SCH (17:54)
--- NOTE | 2016-10-10 18:14 | CP.PCM.PN ---
Subjective - Date & Time of Evaluation Date of Evaluation: 10/10/16 Time of Evaluation: 18:14 - Subjective Subjective: TEMP TRENDING DOWN . TMAX 99.8 VS BP144/71 TACHCARDIAC HR 104/MIN. FEELING SLIGHTLY BETTER +VE COUGH APPETITE POOR HEM/ONCOLLOGY F/U NOTED. SOURCE OF FEVER ?NECROTIZING TUMOUR VS CAVITARY PNEUMONA. Objective - Vital Signs/Intake and Output Vital Signs (last 24 hours): Temp Pulse Resp BP Pulse Ox 98.8 F 89 20 137/79 100 10/10/16 16:05 10/10/16 16:05 10/10/16 16:05 10/10/16 16:05 10/10/16 16:05 Intake and Output: 10/10/16 10/10/16 06:59 18:59 Intake Total 1980 Output Total 700 Balance 1280 - Medications Medications: Current Medications Acetaminophen (Tylenol 325mg Tab) 650 mg PO Q6 PRN PRN Reason: Fever >100.4 F Last Admin: 10/09/16 17:37 Dose: 650 mg Digoxin (Lanoxin) 0.125 mg PO DAILY@1800 [facility] Last Admin: 10/10/16 17:53 Dose: 0.125 mg Glipizide (Glucotrol Xl) 5 mg PO BID [facility] Last Admin: 10/10/16 17:53 Dose: 5 mg Piperacillin Sod/Tazobactam Sod (Zosyn 3.375 Gm Iv Premix) 3.375 gm in 50 mls @ 100 mls/hr IVPB Q8 [facility] Last Admin: 10/10/16 13:40 Dose: 100 mls/hr Linezolid (Zyvox 600mg/300ml D5w) 600 mg in 300 mls @ 200 mls/hr IVPB Q12 [facility] Last Admin: 10/10/16 09:21 Dose: 200 mls/hr Insulin Aspart (Novolog) 0 unit SC ACHS [facility] PRN Reason: Protocol Last Admin: 10/10/16 17:31 Dose: Not Given Metoprolol Tartrate (Lopressor) 50 mg PO BID [facility] Last Admin: 10/10/16 17:53 Dose: 50 mg Montelukast Sodium (Singulair) 10 mg PO HS [facility] Last Admin: 10/09/16 21:45 Dose: 10 mg Oxycodone/Acetaminophen (Percocet 5/325 Mg Tab) 1 tab PO Q6H PRN PRN Reason: Pain, moderate (4-7) Stop: 10/11/16 15:56 Last Admin: 10/10/16 16:10 Dose: 1 tab Pantoprazole Sodium (Protonix Ec Tab) 40 mg PO DAILY [facility] Last Admin: 10/10/16 09:08 Dose: 40 mg Rosuvastatin Calcium (Crestor) 5 mg PO HS [facility] Last Admin: 10/09/16 21:45 Dose: 5 mg Fluticasone/Salmeterol (Advair Diskus 250/50) 1 puff INH RQ12 [facility] Last Admin: 10/10/16 08:38 Dose: 1 puff Senna/Docusate Sodium (Senokot S 50 Mg-8.6 Mg) 2 tab PO QPM [facility] Last Admin: 10/10/16 17:54 Dose: 2 tab - Labs Labs: 10/10/16 07:33 10/10/16 07:33 PT 16.0 SECONDS (9.7-12.2) H 10/10/16 07:33 INR 1.4 10/10/16 07:33 APTT 35 SECONDS (21-34) H D 10/03/16 07:48 - Constitutional Appears: No Acute Distress, Chronically Ill - Head Exam Head Exam: NORMAL INSPECTION - Eye Exam Eye Exam: EOMI, PERRL - ENT Exam ENT Exam: Normal Oropharynx - Neck Exam Neck Exam: Normal Inspection. absent: Lymphadenopathy - Respiratory Exam Respiratory Exam: Rhonchi (B/L) - Cardiovascular Exam Cardiovascular Exam: Tachycardia, REGULAR RHYTHM, +S1, +S2 - GI/Abdominal Exam GI & Abdominal Exam: Soft, Normal Bowel Sounds - Extremities Exam Extremities Exam: absent: Calf Tenderness, Pedal Edema - Neurological Exam Neurological Exam: Alert, Awake, CN II-XII Intact, Oriented x3 - Psychiatric Exam Psychiatric exam: Normal Mood - Skin Skin Exam: Normal Color, Warm Assessment and Plan (1) Sepsis Assessment & Plan: ALL CULTURES NEGATIVE TO DATE. CONTINUE iv ZOSYN 3.375 EVERY 8 HOURLY CONTINUE iv ZYVOX 600 MG EVERY 12 HOURLY FOR STAPH AND STREP COVERAGE. repeat blood cultures 2 sets -P. Status: Acute (2) Respiratory distress Status: Acute (3) COPD exacerbation Status: Acute (4) Lung mass Assessment & Plan: SPUTUM gRAM STAIN AND CULTURE SPUTUM FOR FUNGUS X I SPUTUM FOR CYTOLOGY. PLEASE INDUCE SPUTUM . PULMONARY ON BOARD. CONTINUE IV ABX Status: Acute (5) Renal insufficiency Assessment & Plan: 10/10/16 CREATININE 1.4 bun 8 IMPROVING. Status: Acute (6) Lung cancer Status: Acute
[2016-10-11] MEDS: Oxycodone/Acetaminophen 5/325 mg Tab PO PRN ×2 (01:00→07:06)
[2016-10-11] MEDS: Piperacill/Tazo 3.375gm in Dex 3.375 GM/50 ML BAG IVPB SCH ×3 (05:15→21:10)
[2016-10-11] MEDS: (Novolog) Insulin Aspart, Recombinant 100 u/ml 10 ml vial SC SCH ×4 (07:57→22:53)
[2016-10-11] MEDS: Fluticasone-Salmeterol 250-50mcg Diskus INH SCH ×2 (08:03→20:39)
[2016-10-11 08:10] LABS: HEMATOCRIT 29.5 % (34.0-47.0); MEAN CELL VOLUME 81.6 fL (81.0-99.0); MEAN CORPUSCULAR HEMOGLOBIN 26.2 pg (27.0-31.0); MEAN CORPUSCULAR HGB CONC 32.1 g/dL (33.0-37.0); MEAN PLATELET VOLUME 6.6 fL (7.2-11.7); RED CELL DISTRIBUTION WIDTH 16.8 % (11.5-14.5); WHITE BLOOD COUNT 10.3 K/uL (4.8-10.8)
[2016-10-11 08:15] LABS: INR 2.1
[2016-10-11 08:31] LABS: POTASSIUM 3.8 mmol/L (3.6-5.2)
[2016-10-11 08:34] LABS: CALCIUM 9.5 mg/dl (8.6-10.4)
[2016-10-11] MEDS: GlipiZIDE 5 mg SR Tab PO SCH ×2 (10:15→17:47)
[2016-10-11] MEDS: Linezolid 600 mg in D5W 300 ml 600 MG/300 ML BAG IVPB SCH ×2 (10:15→22:50)
[2016-10-11] MEDS: Pantoprazole 40 mg EC Tab PO SCH (10:15)
--- NOTE | 2016-10-11 12:29 | CP.PCM.PN ---
Subjective - Date & Time of Evaluation Date of Evaluation: 10/11/16 Time of Evaluation: 11:20 - Subjective Subjective: clinically same Objective - Vital Signs/Intake and Output Vital Signs (last 24 hours): Temp Pulse Resp BP Pulse Ox 98.8 F 71 18 123/74 100 10/11/16 07:25 10/11/16 07:25 10/11/16 07:25 10/11/16 07:25 10/11/16 07:25 Intake and Output: 10/11/16 10/11/16 06:59 18:59 Intake Total 1100 Balance 1100 - Medications Medications: Current Medications Acetaminophen (Tylenol 325mg Tab) 650 mg PO Q6 PRN PRN Reason: Fever >100.4 F Last Admin: 10/09/16 17:37 Dose: 650 mg Digoxin (Lanoxin) 0.125 mg PO DAILY@1800 [facility] Last Admin: 10/10/16 17:53 Dose: 0.125 mg Glipizide (Glucotrol Xl) 5 mg PO BID [facility] Last Admin: 10/11/16 10:15 Dose: 5 mg Piperacillin Sod/Tazobactam Sod (Zosyn 3.375 Gm Iv Premix) 3.375 gm in 50 mls @ 100 mls/hr IVPB Q8 [facility] Last Admin: 10/11/16 05:15 Dose: 100 mls/hr Linezolid (Zyvox 600mg/300ml D5w) 600 mg in 300 mls @ 200 mls/hr IVPB Q12 [facility] Last Admin: 10/11/16 10:15 Dose: 200 mls/hr Insulin Aspart (Novolog) 0 unit SC ACHS [facility] PRN Reason: Protocol Last Admin: 10/11/16 11:30 Dose: 2 unit Metoprolol Tartrate (Lopressor) 50 mg PO BID [facility] Last Admin: 10/11/16 10:15 Dose: 50 mg Montelukast Sodium (Singulair) 10 mg PO HS [facility] Last Admin: 10/10/16 21:38 Dose: 10 mg Oxycodone/Acetaminophen (Percocet 5/325 Mg Tab) 1 tab PO Q6H PRN PRN Reason: Pain, moderate (4-7) Stop: 10/11/16 15:56 Last Admin: 10/11/16 07:06 Dose: 1 tab Pantoprazole Sodium (Protonix Ec Tab) 40 mg PO DAILY [facility] Last Admin: 10/11/16 10:15 Dose: 40 mg Rosuvastatin Calcium (Crestor) 5 mg PO HS [facility] Last Admin: 10/10/16 21:38 Dose: 5 mg Fluticasone/Salmeterol (Advair Diskus 250/50) 1 puff INH RQ12 [facility] Last Admin: 10/11/16 08:03 Dose: 1 puff Senna/Docusate Sodium (Senokot S 50 Mg-8.6 Mg) 2 tab PO QPM [facility] Last Admin: 10/10/16 17:54 Dose: 2 tab - Labs Labs: 10/11/16 08:04 10/11/16 08:04 PT 23.9 SECONDS (9.7-12.2) H D 10/11/16 08:04 INR 2.1 D 10/11/16 08:04 APTT 35 SECONDS (21-34) H D 10/03/16 07:48 - Constitutional Appears: Well - Head Exam Head Exam: ATRAUMATIC, NORMAL INSPECTION, NORMOCEPHALIC - Eye Exam Eye Exam: EOMI, Normal appearance, PERRL Pupil Exam: NORMAL ACCOMODATION, PERRL - ENT Exam ENT Exam: Mucous Membranes Moist, Normal Exam - Neck Exam Neck Exam: Full ROM, Normal Inspection. absent: Lymphadenopathy - Respiratory Exam Respiratory Exam: Decreased Breath Sounds - Cardiovascular Exam Cardiovascular Exam: REGULAR RHYTHM, +S1, +S2 - GI/Abdominal Exam GI & Abdominal Exam: Soft, Diminished Bowel Sounds - Rectal Exam Rectal Exam: Deferred Assessment and Plan (1) Acute gout of right knee Status: Acute (2) Acute kidney injury Status: Acute (3) Acute renal insufficiency Status: Acute (4) Anemia Status: Acute (5) Asthma exacerbation Status: Acute (6) Bleeding risk due to Coumadin and aspirin Status: Acute (7) CAD (coronary artery disease) Status: Acute (8) CKD (chronic kidney disease) Status: Acute (9) COPD exacerbation Status: Acute (10) Chest pain Status: Acute (11) Chest pain Status: Acute (12) Chronic congestive heart failure Status: Acute (13) Coagulopathy Status: Acute (14) Dehydration Status: Acute (15) Diabetes Status: Acute (16) Drug toxicity Status: Acute (17) Elevated brain natriuretic peptide (BNP) level Status: Acute (18) Epistaxis Status: Acute (19) Exacerbation of asthma Status: Acute (20) Hyperglycemia Status: Acute (21) Hypertension Status: Acute (22) Hypochloremia Status: Acute (23) Hypokalemia Status: Acute (24) Hypokalemia Status: Acute (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 Status: Acute (26) Lung cancer Status: Acute (27) Lung mass Status: Acute (28) NSTEMI (non-ST elevated myocardial infarction) Status: Acute (29) Pancytopenia due to chemotherapy Status: Acute (30) Pneumonia Status: Acute (31) Pulmonary HTN Status: Acute (32) Pulmonary edema Status: Acute (33) Pulmonary embolism Status: Acute (34) Renal failure Status: Acute (35) Renal insufficiency Status: Acute (36) Respiratory distress Status: Acute (37) Respiratory failure with hypoxia Status: Acute (38) Right knee DJD Status: Acute (39) SOB (shortness of breath) Status: Acute (40) SVT (supraventricular tachycardia) Status: Acute (41) Sepsis Status: Acute (42) Sepsis Status: Acute (43) Septic arthritis Status: Acute (44) Steroid-induced hyperglycemia Status: Acute (45) Symptomatic anemia Status: Acute (46) Tachycardia Status: Acute (47) Troponin level elevated Status: Acute (48) Uncontrolled diabetes mellitus with diabetic nephropathy Status: Acute - Assessment and Plan (Free Text) Plan: Patient seen and examined at bedside No acute event overnight Pulmonic board Continue Zosyn Advair Bronchodilators DVT prophylaxis Supportive care Blood pressure meds Accu-Cheks
--- NOTE | 2016-10-11 17:11 | CP.PCM.PN ---
Subjective - Date & Time of Evaluation Date of Evaluation: 10/11/16 Time of Evaluation: 17:00 - Subjective Subjective: Patient seen and examined No events overnight Pulmonary coverage for Dr. Casillas Objective - Vital Signs/Intake and Output Vital Signs (last 24 hours): Temp Pulse Resp BP Pulse Ox 98.8 F 95 H 18 123/74 100 10/11/16 07:25 10/11/16 16:31 10/11/16 07:25 10/11/16 07:25 10/11/16 07:25 Intake and Output: 10/11/16 10/11/16 06:59 18:59 Intake Total 1100 Balance 1100 - Medications Medications: Current Medications Acetaminophen (Tylenol 325mg Tab) 650 mg PO Q6 PRN PRN Reason: Fever >100.4 F Last Admin: 10/09/16 17:37 Dose: 650 mg Digoxin (Lanoxin) 0.125 mg PO DAILY@1800 [facility] Last Admin: 10/10/16 17:53 Dose: 0.125 mg Glipizide (Glucotrol Xl) 5 mg PO BID [facility] Last Admin: 10/11/16 10:15 Dose: 5 mg Piperacillin Sod/Tazobactam Sod (Zosyn 3.375 Gm Iv Premix) 3.375 gm in 50 mls @ 100 mls/hr IVPB Q8 [facility] Last Admin: 10/11/16 13:11 Dose: 100 mls/hr Linezolid (Zyvox 600mg/300ml D5w) 600 mg in 300 mls @ 200 mls/hr IVPB Q12 [facility] Last Admin: 10/11/16 10:15 Dose: 200 mls/hr Insulin Aspart (Novolog) 0 unit SC ACHS [facility] PRN Reason: Protocol Last Admin: 10/11/16 11:30 Dose: 2 unit Metoprolol Tartrate (Lopressor) 50 mg PO BID [facility] Last Admin: 10/11/16 10:15 Dose: 50 mg Montelukast Sodium (Singulair) 10 mg PO HS [facility] Last Admin: 10/10/16 21:38 Dose: 10 mg Pantoprazole Sodium (Protonix Ec Tab) 40 mg PO DAILY [facility] Last Admin: 10/11/16 10:15 Dose: 40 mg Rosuvastatin Calcium (Crestor) 5 mg PO HS [facility] Last Admin: 10/10/16 21:38 Dose: 5 mg Fluticasone/Salmeterol (Advair Diskus 250/50) 1 puff INH RQ12 [facility] Last Admin: 10/11/16 08:03 Dose: 1 puff Senna/Docusate Sodium (Senokot S 50 Mg-8.6 Mg) 2 tab PO QPM [facility] Last Admin: 10/10/16 17:54 Dose: 2 tab - Labs Labs: 10/11/16 08:04 10/11/16 08:04 PT 23.9 SECONDS (9.7-12.2) H D 10/11/16 08:04 INR 2.1 D 10/11/16 08:04 APTT 35 SECONDS (21-34) H D 10/03/16 07:48 - Head Exam Head Exam: NORMAL INSPECTION - Eye Exam Eye Exam: Normal appearance - ENT Exam ENT Exam: Mucous Membranes Moist - Respiratory Exam Respiratory Exam: Rhonchi - Cardiovascular Exam Cardiovascular Exam: REGULAR RHYTHM, +S1, +S2 - GI/Abdominal Exam GI & Abdominal Exam: Soft, Normal Bowel Sounds - Extremities Exam Extremities Exam: Normal Inspection - Skin Skin Exam: Normal Color Assessment and Plan - Assessment and Plan (Free Text) Assessment: Lung cancer COPD exacerbation Pulmonary embolism Respiratory failure with hypoxemia Hypertension Diabetes Continue Zosyn Advair 250/50 micrograms 1 puff every 12 hours Singular 10 mg nightly Bronchodilators Supportive care DVT/GI prophylaxis
[2016-10-11] MEDS: Digoxin 125 mcg (0.125 mg) Tab PO SCH (17:47)
[2016-10-11] MEDS: Docusate-Senna 50 mg-8.6 mg Tab PO SCH (17:47)
--- NOTE | 2016-10-11 18:53 | CARD ---
APPROVED REPORT EKG Measurement Heart [id number] <Conclusion> Sinus tachycardia Otherwise normal ECG
[2016-10-12] MEDS: Piperacill/Tazo 3.375gm in Dex 3.375 GM/50 ML BAG IVPB SCH ×3 (05:16→21:17)
[2016-10-12] MEDS ORDERED: Dextrose 50% SYRINGE Inj (50 ml) ONE (06:29)
[2016-10-12] MEDS: (Novolog) Insulin Aspart, Recombinant 100 u/ml 10 ml vial SC SCH ×4 (07:54→21:18)
[2016-10-12] MEDS: Fluticasone-Salmeterol 250-50mcg Diskus INH SCH ×2 (08:16→19:44)
[2016-10-12] MEDS: GlipiZIDE 5 mg SR Tab PO SCH (09:01)
[2016-10-12] MEDS: Linezolid 600 mg in D5W 300 ml 600 MG/300 ML BAG IVPB SCH (09:02)
[2016-10-12] MEDS: Pantoprazole 40 mg EC Tab PO SCH (09:02)
--- NOTE | 2016-10-12 14:01 | CP.PCM.PN ---
Subjective - Date & Time of Evaluation Date of Evaluation: 10/12/16 Time of Evaluation: 14:01 - Subjective Subjective: TEMP TRENDING DOWN . C/O RUQ PAIN. STATES DOES NOT FEEL GOOD. TACHYPNIC HEART RATE 124/M. SPUTUM FOR FUNGUS 10/11/16 - +VE FUNGAL ELEMENTS. sPUTUM FOR gRAM STAIN AND CULTURE- MANY YEASTS BLOOD CULTURES NEGATIVE. Objective - Vital Signs/Intake and Output Vital Signs (last 24 hours): Temp Pulse Resp BP Pulse Ox 98.5 F 124 H 18 121/74 97 10/12/16 07:05 10/12/16 07:05 10/12/16 07:05 10/12/16 07:05 10/12/16 07:05 Intake and Output: 10/12/16 10/12/16 06:59 18:59 Intake Total 350 Balance 350 - Medications Medications: Current Medications Acetaminophen (Tylenol 325mg Tab) 650 mg PO Q6 PRN PRN Reason: Fever >100.4 F Last Admin: 10/12/16 06:30 Dose: 650 mg Digoxin (Lanoxin) 0.125 mg PO DAILY@1800 [facility] Last Admin: 10/11/16 17:47 Dose: 0.125 mg Glipizide (Glucotrol Xl) 5 mg PO BID [facility] Last Admin: 10/12/16 09:01 Dose: 5 mg Piperacillin Sod/Tazobactam Sod (Zosyn 3.375 Gm Iv Premix) 3.375 gm in 50 mls @ 100 mls/hr IVPB Q8 [facility] Last Admin: 10/12/16 13:15 Dose: 100 mls/hr Linezolid (Zyvox 600mg/300ml D5w) 600 mg in 300 mls @ 200 mls/hr IVPB Q12 [facility] Last Admin: 10/12/16 09:02 Dose: 200 mls/hr Insulin Aspart (Novolog) 0 unit SC ACHS [facility] PRN Reason: Protocol Last Admin: 10/12/16 13:14 Dose: Not Given Metoprolol Tartrate (Lopressor) 50 mg PO BID [facility] Last Admin: 10/12/16 09:01 Dose: 50 mg Montelukast Sodium (Singulair) 10 mg PO HS [facility] Last Admin: 10/11/16 22:53 Dose: 10 mg Pantoprazole Sodium (Protonix Ec Tab) 40 mg PO DAILY [facility] Last Admin: 10/12/16 09:02 Dose: 40 mg Rosuvastatin Calcium (Crestor) 5 mg PO HS [facility] Last Admin: 10/11/16 22:52 Dose: 5 mg Fluticasone/Salmeterol (Advair Diskus 250/50) 1 puff INH RQ12 [facility] Last Admin: 10/12/16 08:16 Dose: 1 puff Senna/Docusate Sodium (Senokot S 50 Mg-8.6 Mg) 2 tab PO QPM [facility] Last Admin: 10/11/16 17:47 Dose: 2 tab Warfarin Sodium (Coumadin) 3 mg PO 1800 [facility] Stop: 10/12/16 18:01 - Labs Labs: 10/11/16 08:04 10/11/16 08:04 PT 23.9 SECONDS (9.7-12.2) H D 10/11/16 08:04 INR 2.1 D 10/11/16 08:04 APTT 35 SECONDS (21-34) H D 10/03/16 07:48 - Constitutional Appears: No Acute Distress - Eye Exam Eye Exam: EOMI, PERRL - ENT Exam ENT Exam: Normal Oropharynx - Neck Exam Neck Exam: Normal Inspection - Respiratory Exam Respiratory Exam: Rales (BILATERALLY.), Rhonchi - Cardiovascular Exam Cardiovascular Exam: Tachycardia, REGULAR RHYTHM, +S1, +S2 - GI/Abdominal Exam GI & Abdominal Exam: Soft, Tenderness (RIGHT UPPER QUADRANT/EPIGASTRIC.), Normal Bowel Sounds - Extremities Exam Extremities Exam: Normal Capillary Refill. absent: Calf Tenderness, Pedal Edema - Neurological Exam Neurological Exam: Awake, CN II-XII Intact, Oriented x3 - Psychiatric Exam Psychiatric exam: Normal Mood - Skin Skin Exam: Normal Color, Warm Assessment and Plan (1) Sepsis Assessment & Plan: REPEAT BLOOD CULTURES -VE GROWTH. CONTINUE iv ZOSYN 3.375 EVERY 8 HOURLY 10/04 DC IV ZYVOX. Status: Acute (2) Respiratory distress Status: Acute (3) COPD exacerbation Assessment & Plan: CONTINUE iv ZOSYN 3.375 EVERY 8 HOURLY -10/04/16 X 8DAYS ADD IV DIFLUCAN 200 MG ONCE A DAY DAILY X 14 DAYS DC iv ZYVOX 600 MG EVERY 12 HOURLY FOR STAPH AND STREP COVERAGE. FOLLOW-UP REPEAT CT CHEST IN 4 WEEKS TO EVALUATE CAVITARY LESION SEEN LEFT UPPER LOBE - CAVITARY PNEUMONIA/ NECROTIZING TUMOR. CASE DISCUSSED WITH [employer] SYSTEMS ADMINISTRATOR MS DALEY TO DISCUSS WITH PULMONARY . F/U SPUTUM CULTURES. PER PMD PATIENT FOR SUBACUTE REHABILITATION. WILL FOLLOW THE PATIENT WHILE IN HOSPITAL. ONCOLOGY F/U. FOLLOW-UP LFTS WEEKLY AND RENAL FUNCTIONS WEEKLY. Status: Acute (4) Lung mass Status: Acute (5) Renal insufficiency Status: Acute (6) Lung cancer Status: Acute
[2016-10-12 14:19] LABS: INR 2.2
--- NOTE | 2016-10-12 16:31 | PN ---
DATE: SUBJECTIVE: The patient's discharge was delayed over the weekend because of fever and the patient denies chest pain or shortness of breath. The patient is still in sinus tachycardia. PHYSICAL EXAMINATION VITAL SIGNS: Blood pressure 121/74, heart rate today is 124, temperature 98.5, respiration 18. HEENT: Pale conjunctivae. CHEST: Diminished breath sounds over the bases. HEART: S1, S2 regular. EXTREMITIES: No edema. LABORATORY DATA: Hemoglobin and hematocrit 9.5 and 29.5, white count 10.3, platelet count 160,000. Today's blood sugars are 49, 212 and 134. Today's INR is 2.1. Blood cultures have been negative after 48 hours. ASSESSMENT 1. Recurrent lung cancer. 2. Sinus tachycardia as physiologic response to the patient's respiratory condition and the possibility of underlying pneumonia. 3. Improving renal insufficiency. 4. Anemia. 5. Uncontrolled diabetes mellitus; however, the patient was hypoglycemic responding. MEDICATIONS: 5 mg once a day, Lanoxin 0.125 mg once day, glipizide 5 mg twice a day, Lopressor 50 mg twice a day. Continue IV Zosyn and IV Zyvox. Coumadin to be administered 3 mg orally today. Parrish Bailey MD MTDD
[2016-10-12] MEDS: Docusate-Senna 50 mg-8.6 mg Tab PO SCH (17:28)
[2016-10-12] MEDS: Digoxin 125 mcg (0.125 mg) Tab PO SCH (17:28)
--- NOTE | 2016-10-12 18:02 | CP.PCM.PN ---
Subjective - Date & Time of Evaluation Date of Evaluation: 10/12/16 Time of Evaluation: 18:02 - Subjective Subjective: Patient seen and examined No events overnight Objective - Vital Signs/Intake and Output Vital Signs (last 24 hours): Temp Pulse Resp BP Pulse Ox 98.5 F 99 H 18 114/72 100 10/12/16 15:04 10/12/16 15:04 10/12/16 15:04 10/12/16 15:04 10/12/16 15:04 Intake and Output: 10/12/16 10/12/16 06:59 18:59 Intake Total 350 Balance 350 - Medications Medications: Current Medications Acetaminophen (Tylenol 325mg Tab) 650 mg PO Q6 PRN PRN Reason: Fever >100.4 F Last Admin: 10/12/16 06:30 Dose: 650 mg Digoxin (Lanoxin) 0.125 mg PO DAILY@1800 [facility] Last Admin: 10/12/16 17:28 Dose: 0.125 mg Glipizide (Glucotrol Xl) 5 mg PO DAILY [facility] Piperacillin Sod/Tazobactam Sod (Zosyn 3.375 Gm Iv Premix) 3.375 gm in 50 mls @ 100 mls/hr IVPB Q8 [facility] Last Admin: 10/12/16 13:15 Dose: 100 mls/hr Insulin Aspart (Novolog) 0 unit SC ACHS [facility] PRN Reason: Protocol Last Admin: 10/12/16 17:30 Dose: Not Given Metoprolol Tartrate (Lopressor) 50 mg PO BID [facility] Last Admin: 10/12/16 17:28 Dose: 50 mg Montelukast Sodium (Singulair) 10 mg PO HS [facility] Last Admin: 10/11/16 22:53 Dose: 10 mg Pantoprazole Sodium (Protonix Ec Tab) 40 mg PO DAILY [facility] Last Admin: 10/12/16 09:02 Dose: 40 mg Rosuvastatin Calcium (Crestor) 5 mg PO HS [facility] Last Admin: 10/11/16 22:52 Dose: 5 mg Fluticasone/Salmeterol (Advair Diskus 250/50) 1 puff INH RQ12 [facility] Last Admin: 10/12/16 08:16 Dose: 1 puff Senna/Docusate Sodium (Senokot S 50 Mg-8.6 Mg) 2 tab PO QPM [facility] Last Admin: 10/12/16 17:28 Dose: 2 tab - Labs Labs: 10/11/16 08:04 10/11/16 08:04 PT 25.4 SECONDS (9.7-12.2) H 10/12/16 14:10 INR 2.2 10/12/16 14:10 APTT 35 SECONDS (21-34) H D 10/03/16 07:48 - Head Exam Head Exam: NORMAL INSPECTION - Eye Exam Eye Exam: Normal appearance - ENT Exam ENT Exam: Mucous Membranes Moist - Respiratory Exam Respiratory Exam: Clear to Ausculation Bilateral, NORMAL BREATHING PATTERN - Cardiovascular Exam Cardiovascular Exam: REGULAR RHYTHM, +S1, +S2 - GI/Abdominal Exam GI & Abdominal Exam: Soft, Normal Bowel Sounds - Extremities Exam Extremities Exam: Normal Inspection Assessment and Plan - Assessment and Plan (Free Text) Assessment: Lung cancer COPD exacerbation Pulmonary embolism Respiratory failure with hypoxemia Hypertension Diabetes Continue Zosyn Follow cultures Advair 250/50 micrograms 1 puff every 12 hours Singular 10 mg nightly Bronchodilators DVT/GI prophylaxis
--- NOTE | 2016-10-12 18:16 | CP.PCM.PN ---
Subjective - Date & Time of Evaluation Date of Evaluation: 10/12/16 Time of Evaluation: 10:20 - Subjective Subjective: clinically same Objective - Vital Signs/Intake and Output Vital Signs (last 24 hours): Temp Pulse Resp BP Pulse Ox 98.5 F 99 H 18 114/72 100 10/12/16 15:04 10/12/16 15:04 10/12/16 15:04 10/12/16 15:04 10/12/16 15:04 Intake and Output: 10/12/16 10/12/16 06:59 18:59 Intake Total 350 Balance 350 - Medications Medications: Current Medications Acetaminophen (Tylenol 325mg Tab) 650 mg PO Q6 PRN PRN Reason: Fever >100.4 F Last Admin: 10/12/16 18:05 Dose: 650 mg Digoxin (Lanoxin) 0.125 mg PO DAILY@1800 [facility] Last Admin: 10/12/16 17:28 Dose: 0.125 mg Glipizide (Glucotrol Xl) 5 mg PO DAILY [facility] Piperacillin Sod/Tazobactam Sod (Zosyn 3.375 Gm Iv Premix) 3.375 gm in 50 mls @ 100 mls/hr IVPB Q8 [facility] Last Admin: 10/12/16 13:15 Dose: 100 mls/hr Insulin Aspart (Novolog) 0 unit SC ACHS [facility] PRN Reason: Protocol Last Admin: 10/12/16 17:30 Dose: Not Given Metoprolol Tartrate (Lopressor) 50 mg PO BID [facility] Last Admin: 10/12/16 17:28 Dose: 50 mg Montelukast Sodium (Singulair) 10 mg PO HS [facility] Last Admin: 10/11/16 22:53 Dose: 10 mg Pantoprazole Sodium (Protonix Ec Tab) 40 mg PO DAILY [facility] Last Admin: 10/12/16 09:02 Dose: 40 mg Rosuvastatin Calcium (Crestor) 5 mg PO HS [facility] Last Admin: 10/11/16 22:52 Dose: 5 mg Fluticasone/Salmeterol (Advair Diskus 250/50) 1 puff INH RQ12 [facility] Last Admin: 10/12/16 08:16 Dose: 1 puff Senna/Docusate Sodium (Senokot S 50 Mg-8.6 Mg) 2 tab PO QPM [facility] Last Admin: 10/12/16 17:28 Dose: 2 tab - Labs Labs: 10/11/16 08:04 10/11/16 08:04 PT 25.4 SECONDS (9.7-12.2) H 10/12/16 14:10 INR 2.2 10/12/16 14:10 APTT 35 SECONDS (21-34) H D 10/03/16 07:48 - Constitutional Appears: Well - Head Exam Head Exam: ATRAUMATIC, NORMAL INSPECTION, NORMOCEPHALIC - Eye Exam Eye Exam: EOMI, Normal appearance, PERRL Pupil Exam: NORMAL ACCOMODATION, PERRL - ENT Exam ENT Exam: Mucous Membranes Moist, Normal Exam - Neck Exam Neck Exam: Full ROM, Normal Inspection. absent: Lymphadenopathy - Respiratory Exam Respiratory Exam: Decreased Breath Sounds - Cardiovascular Exam Cardiovascular Exam: REGULAR RHYTHM, +S1, +S2 - GI/Abdominal Exam GI & Abdominal Exam: Soft, Diminished Bowel Sounds - Rectal Exam Rectal Exam: Deferred Assessment and Plan (1) Acute gout of right knee Status: Acute (2) Acute kidney injury Status: Acute (3) Acute renal insufficiency Status: Acute (4) Anemia Status: Acute (5) Asthma exacerbation Status: Acute (6) Bleeding risk due to Coumadin and aspirin Status: Acute (7) CAD (coronary artery disease) Status: Acute (8) CKD (chronic kidney disease) Status: Acute (9) COPD exacerbation Status: Acute (10) Chest pain Status: Acute (11) Chest pain Status: Acute (12) Chronic congestive heart failure Status: Acute (13) Coagulopathy Status: Acute (14) Dehydration Status: Acute (15) Diabetes Status: Acute (16) Drug toxicity Status: Acute (17) Elevated brain natriuretic peptide (BNP) level Status: Acute (18) Epistaxis Status: Acute (19) Exacerbation of asthma Status: Acute (20) Hyperglycemia Status: Acute (21) Hypertension Status: Acute (22) Hypochloremia Status: Acute (23) Hypokalemia Status: Acute (24) Hypokalemia Status: Acute (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 Status: Acute (26) Lung cancer Status: Acute (27) Lung mass Status: Acute (28) NSTEMI (non-ST elevated myocardial infarction) Status: Acute (29) Pancytopenia due to chemotherapy Status: Acute (30) Pneumonia Status: Acute (31) Pulmonary HTN Status: Acute (32) Pulmonary edema Status: Acute (33) Pulmonary embolism Status: Acute (34) Renal failure Status: Acute (35) Renal insufficiency Status: Acute (36) Respiratory distress Status: Acute (37) Respiratory failure with hypoxia Status: Acute (38) Right knee DJD Status: Acute (39) SOB (shortness of breath) Status: Acute (40) SVT (supraventricular tachycardia) Status: Acute (41) Sepsis Status: Acute (42) Sepsis Status: Acute (43) Septic arthritis Status: Acute (44) Steroid-induced hyperglycemia Status: Acute (45) Symptomatic anemia Status: Acute (46) Tachycardia Status: Acute (47) Troponin level elevated Status: Acute (48) Uncontrolled diabetes mellitus with diabetic nephropathy Status: Acute - Assessment and Plan (Free Text) Plan: Patient seen and examined No acute event Cultures awaited Bronchodilators DVT prophylaxis Protonix Insulins Blood sugar monitoring [place]
[2016-10-13] MEDS: Piperacill/Tazo 3.375gm in Dex 3.375 GM/50 ML BAG IVPB SCH ×3 (05:48→21:02)
[2016-10-13 06:05] LABS: HEMATOCRIT 33.8 % (34.0-47.0); MEAN CELL VOLUME 81.4 fL (81.0-99.0); MEAN CORPUSCULAR HEMOGLOBIN 25.5 pg (27.0-31.0); MEAN CORPUSCULAR HGB CONC 31.3 g/dL (33.0-37.0); MEAN PLATELET VOLUME 6.4 fL (7.2-11.7); WHITE BLOOD COUNT 10.5 K/uL (4.8-10.8)
[2016-10-13 06:08] LABS: INR 2.2
[2016-10-13 06:14] LABS: POTASSIUM 3.8 mmol/L (3.6-5.2)
[2016-10-13] MEDS: Fluticasone-Salmeterol 250-50mcg Diskus INH SCH ×2 (07:41→19:39)
[2016-10-13] MEDS: (Novolog) Insulin Aspart, Recombinant 100 u/ml 10 ml vial SC SCH ×4 (07:44→21:03)
[2016-10-13 08:04] VITALS: O2SAT 100
--- NOTE | 2016-10-13 09:19 | CP.PCM.PN ---
Subjective - Date & Time of Evaluation Date of Evaluation: 10/13/16 Time of Evaluation: 09:15 - Subjective Subjective: DR CHEN'S COVERAGE GREATLY APPRECIATED. CHART REVIEWED. PT ALERT, NO CHANGE MORRIS., NOT MUCH COUGH, +RIGHT RIB PAINS., ROS; OTHERWISE NEG Objective - Vital Signs/Intake and Output Vital Signs (last 24 hours): Temp Pulse Resp BP Pulse Ox 98.7 F 97 H 20 114/73 100 10/13/16 07:00 10/13/16 07:00 10/13/16 07:00 10/13/16 07:00 10/13/16 07:00 Intake and Output: 10/13/16 10/13/16 06:59 18:59 Intake Total 530 Balance 530 - Medications Medications: Current Medications Acetaminophen (Tylenol 325mg Tab) 650 mg PO Q6 PRN PRN Reason: Fever >100.4 F Last Admin: 10/13/16 05:47 Dose: 650 mg Digoxin (Lanoxin) 0.125 mg PO DAILY@1800 [facility] Last Admin: 10/12/16 17:28 Dose: 0.125 mg Glipizide (Glucotrol Xl) 5 mg PO DAILY [facility] Piperacillin Sod/Tazobactam Sod (Zosyn 3.375 Gm Iv Premix) 3.375 gm in 50 mls @ 100 mls/hr IVPB Q8 [facility] Last Admin: 10/13/16 05:48 Dose: 100 mls/hr Insulin Aspart (Novolog) 0 unit SC ACHS [facility] PRN Reason: Protocol Last Admin: 10/13/16 07:44 Dose: Not Given Metoprolol Tartrate (Lopressor) 50 mg PO BID [facility] Last Admin: 10/12/16 17:28 Dose: 50 mg Montelukast Sodium (Singulair) 10 mg PO HS [facility] Last Admin: 10/12/16 21:17 Dose: 10 mg Oxycodone/Acetaminophen (Percocet 5/325 Mg Tab) 1 tab PO Q4H PRN PRN Reason: Pain, moderate (4-7) Stop: 10/15/16 22:11 Pantoprazole Sodium (Protonix Ec Tab) 40 mg PO DAILY [facility] Last Admin: 10/12/16 09:02 Dose: 40 mg Rosuvastatin Calcium (Crestor) 5 mg PO [facility] Last Admin: 10/12/16 21:17 Dose: 5 mg Fluticasone/Salmeterol (Advair Diskus 250/50) 1 puff INH RQ12 [facility] Last Admin: 10/13/16 07:41 Dose: 1 puff Senna/Docusate Sodium (Senokot S 50 Mg-8.6 Mg) 2 tab PO QPM [facility] Last Admin: 10/12/16 17:28 Dose: 2 tab - Labs Labs: 10/13/16 05:59 10/13/16 05:59 PT 25.9 SECONDS (9.7-12.2) H 10/13/16 05:59 INR 2.2 10/13/16 05:59 APTT 35 SECONDS (21-34) H D 10/03/16 07:48 - Constitutional Appears: Chronically Ill - Head Exam Head Exam: ATRAUMATIC, NORMOCEPHALIC - Eye Exam Eye Exam: EOMI, Normal appearance - ENT Exam ENT Exam: Mucous Membranes Moist - Neck Exam Neck Exam: absent: Tenderness - Respiratory Exam Respiratory Exam: Decreased Breath Sounds. absent: Accessory Muscle Use, Wheezes - Cardiovascular Exam Cardiovascular Exam: RRR, +S1, +S2 - GI/Abdominal Exam GI & Abdominal Exam: Soft. absent: Tenderness - Rectal Exam Rectal Exam: absent: Deferred - Extremities Exam Extremities Exam: absent: Calf Tenderness, Pedal Edema - Back Exam Back Exam: absent: CVA tenderness (L), CVA tenderness (R) - Neurological Exam Neurological Exam: Alert, Awake, CN II-XII Intact, Oriented x3 - Psychiatric Exam Psychiatric exam: Normal Affect - Skin Skin Exam: absent: Rash Assessment and Plan (1) Lung cancer Status: Acute (2) CAD (coronary artery disease) Status: Acute (3) COPD exacerbation Status: Acute (4) Chronic congestive heart failure Status: Acute (5) Diabetes Status: Acute (6) Hypertension Status: Acute (7) Pulmonary embolism Status: Acute (8) Respiratory failure with hypoxia Status: Acute - Assessment and Plan (Free Text) Assessment: RESP STATUS NO SIG CHANGE., CONT NEB BD., MONITOR O2 SAT. S/P COUMADIN TOXICITY , MONITOR INR., S/P TRANS PRBC, H/H STABLE NOW. FEVERS NOTED SPUTUM +FUNGUS NOTED, ON DIFLUCAN NOW., F/U CULT RESULTS. CXR REVIEWED, CT REVIEWED., +DISEASE PROGRESSION NOTED. PROG POOR. DISCUSSED WITH STAFF.
[2016-10-13] MEDS: GlipiZIDE 5 mg SR Tab PO SCH (10:07)
[2016-10-13] MEDS: Pantoprazole 40 mg EC Tab PO SCH (10:07)
--- NOTE | 2016-10-13 12:55 | CP.PCM.PN ---
Subjective - Date & Time of Evaluation Date of Evaluation: 10/13/16 Time of Evaluation: 12:55 - Subjective Subjective: AFEBRILE C/O RT SIDED RIB CAGE PAIN. NO SOB SPUTUM +VE YEAST Objective - Vital Signs/Intake and Output Vital Signs (last 24 hours): Temp Pulse Resp BP Pulse Ox 98.7 F 109 H 20 109/65 100 10/13/16 07:00 10/13/16 10:09 10/13/16 07:00 10/13/16 10:09 10/13/16 07:00 Intake and Output: 10/13/16 10/13/16 06:59 18:59 Intake Total 530 Balance 530 - Medications Medications: Current Medications Acetaminophen (Tylenol 325mg Tab) 650 mg PO Q6 PRN PRN Reason: Fever >100.4 F Last Admin: 10/13/16 12:34 Dose: 650 mg Albuterol/Ipratropium (Duoneb 3 Mg/0.5 Mg (3 Ml) Ud) 3 ml INH RQ6 [facility] Digoxin (Lanoxin) 0.125 mg PO DAILY@1800 [facility] Last Admin: 10/12/16 17:28 Dose: 0.125 mg Glipizide (Glucotrol Xl) 5 mg PO DAILY [facility] Last Admin: 10/13/16 10:07 Dose: 5 mg Piperacillin Sod/Tazobactam Sod (Zosyn 3.375 Gm Iv Premix) 3.375 gm in 50 mls @ 100 mls/hr IVPB Q8 [facility] Last Admin: 10/13/16 05:48 Dose: 100 mls/hr Insulin Aspart (Novolog) 0 unit SC ACHS [facility] PRN Reason: Protocol Last Admin: 10/13/16 11:51 Dose: Not Given Metoprolol Tartrate (Lopressor) 50 mg PO BID [facility] Last Admin: 10/13/16 10:09 Dose: 50 mg Montelukast Sodium (Singulair) 10 mg PO HS [facility] Last Admin: 10/12/16 21:17 Dose: 10 mg Oxycodone/Acetaminophen (Percocet 5/325 Mg Tab) 1 tab PO Q4H PRN PRN Reason: Pain, moderate (4-7) Stop: 10/15/16 22:11 Pantoprazole Sodium (Protonix Ec Tab) 40 mg PO DAILY [facility] Last Admin: 08/01/17 10:07 Dose: 40 mg Rosuvastatin Calcium (Crestor) 5 mg PO HS [facility] Last Admin: 10/12/16 21:17 Dose: 5 mg Fluticasone/Salmeterol (Advair Diskus 250/50) 1 puff INH RQ12 [facility] Last Admin: 10/13/16 07:41 Dose: 1 puff Senna/Docusate Sodium (Senokot S 50 Mg-8.6 Mg) 2 tab PO QPM [facility] Last Admin: 10/12/16 17:28 Dose: 2 tab - Labs Labs: 10/13/16 05:59 10/13/16 05:59 PT 25.9 SECONDS (9.7-12.2) H 10/13/16 05:59 INR 2.2 10/13/16 05:59 APTT 35 SECONDS (21-34) H D 10/03/16 07:48 - Constitutional Appears: No Acute Distress - Head Exam Head Exam: NORMAL INSPECTION - Eye Exam Eye Exam: EOMI, PERRL - ENT Exam ENT Exam: Mucous Membranes Dry - Neck Exam Neck Exam: Normal Inspection - Respiratory Exam Respiratory Exam: Rhonchi - Cardiovascular Exam Cardiovascular Exam: Tachycardia, Clicks, +S1, +S2 - GI/Abdominal Exam GI & Abdominal Exam: Soft, Normal Bowel Sounds - Extremities Exam Extremities Exam: Full ROM. absent: Calf Tenderness, Pedal Edema - Neurological Exam Neurological Exam: Awake, CN II-XII Intact, Oriented x3 - Psychiatric Exam Psychiatric exam: Normal Mood - Skin Skin Exam: Normal Color, Warm Assessment and Plan (1) Sepsis Assessment & Plan: CONTINUE iv ZOSYN 3.375 EVERY 8 HOURLY -10/04/16 X 8DAYS ADD IV DIFLUCAN 200 MG ONCE A DAY DAILY X 14 DAYS DC iv ZYVOX 600 MG EVERY 12 HOURLY FOR STAPH AND STREP COVERAGE. FOLLOW-UP REPEAT CT CHEST IN 4 WEEKS TO EVALUATE CAVITARY LESION SEEN LEFT UPPER LOBE - CAVITARY PNEUMONIA/ NECROTIZING TUMOR. CASE DISCUSSED WITH [employer] MANAGER MS DALEY 10/12 F/U SPUTUM CULTURES. MONITOR LFTS WEEKLY PATIENT ON iv dIFLUCAN. Status: Acute (2) Respiratory distress Status: Acute (3) COPD exacerbation Assessment & Plan: PULMONARY TOILET Status: Acute (4) Lung mass Assessment & Plan: SEEN BY PULMONARY - PROBABLE DISEASE PROGRESSION ONCOLOGY F/U Status: Acute (5) Renal insufficiency Status: Acute (6) Lung cancer Status: Acute
[2016-10-13] MEDS: Albuterol-Ipratrop 3 mg / 0.5 (3 ml) UD INH SCH ×2 (13:38→19:39)
--- NOTE | 2016-10-13 16:33 | CP.PCM.PN ---
Subjective - Date & Time of Evaluation Date of Evaluation: 10/13/16 Time of Evaluation: 16:33 - Subjective Subjective: DISCUSSED WITH DR. Devante MARK FOR REHAB. PT WILL CONTINUE ZOSYN 3.375 GM IV Q8 HOURS X8 DAYS (START 10/13/16 AND LAST DOSE TO BE GIVEN ON 10/20/16). FOR YEAST IN SPUTUM, PER DR. FRASER, PT WILL START AND CONTINUE DIFLUCAN 200 MG PO DAILY X14 DAYS (START 10/13/16 AND LAST DOSE TO BE GIVEN ON 10/26/16). PENDING PICC LINE INSERTION; WILL BE DONE TOMORROW AM. IF PT TOLERATES PROCEDURE WELL AND REMAINS STABLE, WILL D/C TO [facility] TOMORROW. NO FURTHER ORDERS AT THIS TIME. Objective - Vital Signs/Intake and Output Vital Signs (last 24 hours): Temp Pulse Resp BP Pulse Ox 98.7 F 109 H 20 109/65 100 10/13/16 07:00 10/13/16 10:09 10/13/16 07:00 10/13/16 10:09 10/13/16 07:00 Intake and Output: 10/13/16 10/13/16 06:59 18:59 Intake Total 530 Balance 530 - Medications Medications: Current Medications Acetaminophen (Tylenol 325mg Tab) 650 mg PO Q6 PRN PRN Reason: Fever >100.4 F Last Admin: 10/13/16 12:34 Dose: 650 mg Albuterol/Ipratropium (Duoneb 3 Mg/0.5 Mg (3 Ml) Ud) 3 ml INH RQ6 [facility] Last Admin: 10/13/16 13:38 Dose: Not Given Digoxin (Lanoxin) 0.125 mg PO DAILY@1800 [facility] Last Admin: 10/12/16 17:28 Dose: 0.125 mg Glipizide (Glucotrol Xl) 5 mg PO DAILY [facility] Last Admin: 10/13/16 10:07 Dose: 5 mg Piperacillin Sod/Tazobactam Sod (Zosyn 3.375 Gm Iv Premix) 3.375 gm in 50 mls @ 100 mls/hr IVPB Q8 [facility] Last Admin: 10/13/16 14:34 Dose: 100 mls/hr Insulin Aspart (Novolog) 0 unit SC ACHS [facility] PRN Reason: Protocol Last Admin: 10/13/16 11:51 Dose: Not Given Metoprolol Tartrate (Lopressor) 50 mg PO BID [facility] Last Admin: 10/13/16 10:09 Dose: 50 mg Montelukast Sodium (Singulair) 10 mg PO HS [facility] Last Admin: 10/12/16 21:17 Dose: 10 mg Oxycodone/Acetaminophen (Percocet 5/325 Mg Tab) 1 tab PO Q4H PRN PRN Reason: Pain, moderate (4-7) Stop: 10/15/16 22:11 Pantoprazole Sodium (Protonix Ec Tab) 40 mg PO DAILY [facility] Last Admin: 10/13/16 10:07 Dose: 40 mg Rosuvastatin Calcium (Crestor) 5 mg PO HS [facility] Last Admin: 10/12/16 21:17 Dose: 5 mg Fluticasone/Salmeterol (Advair Diskus 250/50) 1 puff INH RQ12 [facility] Last Admin: 10/13/16 07:41 Dose: 1 puff Senna/Docusate Sodium (Senokot S 50 Mg-8.6 Mg) 2 tab PO QPM [facility] Last Admin: 10/12/16 17:28 Dose: 2 tab - Labs Labs: 10/13/16 05:59 10/13/16 05:59 PT 25.9 SECONDS (9.7-12.2) H 10/13/16 05:59 INR 2.2 10/13/16 05:59 APTT 35 SECONDS (21-34) H D 10/03/16 07:48
--- NOTE | 2016-10-13 17:06 | CP.PCM.PN ---
Subjective - Date & Time of Evaluation Date of Evaluation: 10/13/16 Time of Evaluation: 10:40 - Subjective Subjective: clinically same Objective - Vital Signs/Intake and Output Vital Signs (last 24 hours): Temp Pulse Resp BP Pulse Ox 98.5 F 90 20 103/65 100 10/13/16 15:14 10/13/16 15:14 10/13/16 15:14 10/13/16 15:14 10/13/16 15:14 Intake and Output: 10/13/16 10/13/16 06:59 18:59 Intake Total 530 Balance 530 - Medications Medications: Current Medications Acetaminophen (Tylenol 325mg Tab) 650 mg PO Q6 PRN PRN Reason: Fever >100.4 F Last Admin: 10/13/16 12:34 Dose: 650 mg Albuterol/Ipratropium (Duoneb 3 Mg/0.5 Mg (3 Ml) Ud) 3 ml INH RQ6 [facility] Last Admin: 10/13/16 13:38 Dose: Not Given Digoxin (Lanoxin) 0.125 mg PO DAILY@1800 [facility] Last Admin: 10/12/16 17:28 Dose: 0.125 mg Fluconazole (Diflucan) 200 mg PO DAILY [facility] Stop: 10/27/16 16:46 Glipizide (Glucotrol Xl) 5 mg PO DAILY [facility] Last Admin: 10/13/16 10:07 Dose: 5 mg Piperacillin Sod/Tazobactam Sod (Zosyn 3.375 Gm Iv Premix) 3.375 gm in 50 mls @ 100 mls/hr IVPB Q8 [facility] Last Admin: 10/13/16 14:34 Dose: 100 mls/hr Insulin Aspart (Novolog) 0 unit SC ACHS [facility] PRN Reason: Protocol Last Admin: 10/13/16 16:43 Dose: Not Given Metoprolol Tartrate (Lopressor) 50 mg PO BID [facility] Last Admin: 10/13/16 10:09 Dose: 50 mg Montelukast Sodium (Singulair) 10 mg PO HS [facility] Last Admin: 10/12/16 21:17 Dose: 10 mg Oxycodone/Acetaminophen (Percocet 5/325 Mg Tab) 1 tab PO Q4H PRN PRN Reason: Pain, moderate (4-7) Stop: 10/15/16 22:11 Pantoprazole Sodium (Protonix Ec Tab) 40 mg PO DAILY [facility] Last Admin: 10/13/16 10:07 Dose: 40 mg Rosuvastatin Calcium (Crestor) 5 mg PO HS [facility] Last Admin: 10/12/16 21:17 Dose: 5 mg Fluticasone/Salmeterol (Advair Diskus 250/50) 1 puff INH RQ12 [facility] Last Admin: 10/13/16 07:41 Dose: 1 puff Senna/Docusate Sodium (Senokot S 50 Mg-8.6 Mg) 2 tab PO QPM [facility] Last Admin: 10/12/16 17:28 Dose: 2 tab - Labs Labs: 10/13/16 05:59 10/13/16 05:59 PT 25.9 SECONDS (9.7-12.2) H 10/13/16 05:59 INR 2.2 10/13/16 05:59 APTT 35 SECONDS (21-34) H D 10/03/16 07:48 - Constitutional Appears: Well - Head Exam Head Exam: ATRAUMATIC, NORMAL INSPECTION, NORMOCEPHALIC - Eye Exam Eye Exam: EOMI, Normal appearance, PERRL Pupil Exam: NORMAL ACCOMODATION, PERRL - ENT Exam ENT Exam: Mucous Membranes Moist, Normal Exam - Neck Exam Neck Exam: Full ROM, Normal Inspection. absent: Lymphadenopathy - Respiratory Exam Respiratory Exam: Decreased Breath Sounds - Cardiovascular Exam Cardiovascular Exam: REGULAR RHYTHM, +S1, +S2 - GI/Abdominal Exam GI & Abdominal Exam: Soft, Diminished Bowel Sounds - Rectal Exam Rectal Exam: Deferred Assessment and Plan (1) Acute gout of right knee Status: Acute (2) Acute kidney injury Status: Acute (3) Acute renal insufficiency Status: Acute (4) Anemia Status: Acute (5) Asthma exacerbation Status: Acute (6) Bleeding risk due to Coumadin and aspirin Status: Acute (7) CAD (coronary artery disease) Status: Acute (8) CKD (chronic kidney disease) Status: Acute (9) COPD exacerbation Status: Acute (10) Chest pain Status: Acute (11) Chest pain Status: Acute (12) Chronic congestive heart failure Status: Acute (13) Coagulopathy Status: Acute (14) Dehydration Status: Acute (15) Diabetes Status: Acute (16) Drug toxicity Status: Acute (17) Elevated brain natriuretic peptide (BNP) level Status: Acute (18) Epistaxis Status: Acute (19) Exacerbation of asthma Status: Acute (20) Hyperglycemia Status: Acute (21) Hypertension Status: Acute (22) Hypochloremia Status: Acute (23) Hypokalemia Status: Acute (24) Hypokalemia Status: Acute (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 Status: Acute (26) Lung cancer Status: Acute (27) Lung mass Status: Acute (28) NSTEMI (non-ST elevated myocardial infarction) Status: Acute (29) Pancytopenia due to chemotherapy Status: Acute (30) Pneumonia Status: Acute (31) Pulmonary HTN Status: Acute (32) Pulmonary edema Status: Acute (33) Pulmonary embolism Status: Acute (34) Renal failure Status: Acute (35) Renal insufficiency Status: Acute (36) Respiratory distress Status: Acute (37) Respiratory failure with hypoxia Status: Acute (38) Right knee DJD Status: Acute (39) SOB (shortness of breath) Status: Acute (40) SVT (supraventricular tachycardia) Status: Acute (41) Sepsis Status: Acute (42) Sepsis Status: Acute (43) Septic arthritis Status: Acute (44) Steroid-induced hyperglycemia Status: Acute (45) Symptomatic anemia Status: Acute (46) Tachycardia Status: Acute (47) Troponin level elevated Status: Acute (48) Uncontrolled diabetes mellitus with diabetic nephropathy Status: Acute - Assessment and Plan (Free Text) Plan: Continue Zosyn 3.375 g IV every 8 for 8 days and then Diflucan 200 once a day for 14 days For subacute rehab placement Coumadin 3 mg Follow-up with ID Follow-up with the cardio Continue as ordered
[2016-10-13] MEDS: Digoxin 125 mcg (0.125 mg) Tab PO SCH (18:02)
[2016-10-13 18:03] VITALS: PULSE 90
[2016-10-13] MEDS: Docusate-Senna 50 mg-8.6 mg Tab PO SCH (18:03)
[2016-10-13] MEDS: Oxycodone/Acetaminophen 5/325 mg Tab PO PRN (18:41)
--- NOTE | 2016-10-13 20:25 | PN ---
DATE: 10/13/2016 SUBJECTIVE: The patient denies any chest pain, dizziness, or shortness of breath at this time. PHYSICAL EXAMINATION: VITAL SIGNS: Blood pressure 107/70, heart rate 75, temperature 98.5, respiration 20. HEENT: [place] conjunctiva. CHEST: Diminished breath sounds over both bases. HEART: S1 and S2 regular. ABDOMEN: Soft. EXTREMITIES: No edema. LABORATORY DATA: Today's is within normal limit except for chloride 95 and creatinine of 1.1. Today's INR is 2.2. ASSESSMENT: 1. Hypertension. 2. Improved sinus tachycardia. 3. Recurrent right lung carcinoma. 4. History of pulmonary embolism in the past. CONDITIONS: Continue current IV Zosyn. Continue Lanoxin 0.125 mg once a day, Lopressor 50 mg twice a day, Crestor 5 mg once a day, Coumadin mg p.o. today, which is the optimal dose. I will follow INR in a.m. Parrish Bailey MD
[2016-10-14] MEDS: Albuterol-Ipratrop 3 mg / 0.5 (3 ml) UD INH SCH ×3 (01:34→13:03)
[2016-10-14] MEDS: Oxycodone/Acetaminophen 5/325 mg Tab PO PRN ×3 (02:55→12:34)
[2016-10-14] MEDS: Piperacill/Tazo 3.375gm in Dex 3.375 GM/50 ML BAG IVPB SCH (05:37)
[2016-10-14 06:04] LABS: HEMATOCRIT 31.6 % (34.0-47.0); MEAN CORPUSCULAR HEMOGLOBIN 25.2 pg (27.0-31.0); MEAN CORPUSCULAR HGB CONC 31.1 g/dL (33.0-37.0); MEAN PLATELET VOLUME 6.5 fL (7.2-11.7); WHITE BLOOD COUNT 12.3 K/uL (4.8-10.8)
[2016-10-14] MEDS: (Novolog) Insulin Aspart, Recombinant 100 u/ml 10 ml vial SC SCH ×2 (07:47→12:18)
[2016-10-14 08:21] VITALS: BP 115/71; RESP 18; TEMP 98.9
--- NOTE | 2016-10-14 08:34 | CP.PCM.PN ---
Subjective - Date & Time of Evaluation Date of Evaluation: 10/14/16 Time of Evaluation: 08:31 - Subjective Subjective: PT ALERT, LESS PAIN RIGHT RIBS, LESS COUGH,. AMBULATED TO BATHROOM., ROS; OTHERWISE NEG Objective - Vital Signs/Intake and Output Vital Signs (last 24 hours): Temp Pulse Resp BP Pulse Ox 98.9 F 109 H 18 115/71 100 10/14/16 07:10 10/14/16 07:10 10/14/16 07:10 10/14/16 07:10 10/14/16 07:10 Intake and Output: 10/14/16 10/14/16 06:59 18:59 Intake Total 820 Output Total 600 Balance 220 - Medications Medications: Current Medications Acetaminophen (Tylenol 325mg Tab) 650 mg PO Q6 PRN PRN Reason: Fever >100.4 F Last Admin: 10/13/16 12:34 Dose: 650 mg Albuterol/Ipratropium (Duoneb 3 Mg/0.5 Mg (3 Ml) Ud) 3 ml INH RQ6 [facility] Last Admin: 10/14/16 07:21 Dose: 3 ml Digoxin (Lanoxin) 0.125 mg PO DAILY@1800 [facility] Last Admin: 10/13/16 18:02 Dose: 0.125 mg Fluconazole (Diflucan) 200 mg PO DAILY [facility] Stop: 10/27/16 16:46 Last Admin: 10/13/16 18:02 Dose: 200 mg Glipizide (Glucotrol Xl) 5 mg PO DAILY [facility] Last Admin: 10/13/16 10:07 Dose: 5 mg Piperacillin Sod/Tazobactam Sod (Zosyn 3.375 Gm Iv Premix) 3.375 gm in 50 mls @ 100 mls/hr IVPB Q8 [facility] Last Admin: 10/14/16 05:37 Dose: 100 mls/hr Insulin Aspart (Novolog) 0 unit SC ACHS [facility] PRN Reason: Protocol Last Admin: 10/14/16 07:47 Dose: Not Given Metoprolol Tartrate (Lopressor) 50 mg PO BID [facility] Last Admin: 10/13/16 18:02 Dose: 50 mg Montelukast Sodium (Singulair) 10 mg PO HS [facility] Last Admin: 10/13/16 21:00 Dose: 10 mg Oxycodone/Acetaminophen (Percocet 5/325 Mg Tab) 1 tab PO Q4H PRN PRN Reason: Pain, moderate (4-7) Stop: 10/15/16 22:11 Last Admin: 10/14/16 08:10 Dose: 1 tab Pantoprazole Sodium (Protonix Ec Tab) 40 mg PO DAILY [facility] Last Admin: 10/13/16 10:07 Dose: 40 mg Rosuvastatin Calcium (Crestor) 5 mg PO HS [facility] Last Admin: 10/13/16 21:00 Dose: 5 mg Fluticasone/Salmeterol (Advair Diskus 250/50) 1 puff INH RQ12 [facility] Last Admin: 10/13/16 19:39 Dose: 1 puff Senna/Docusate Sodium (Senokot S 50 Mg-8.6 Mg) 2 tab PO QPM [facility] Last Admin: 10/13/16 18:03 Dose: Not Given - Labs Labs: 10/14/16 05:53 10/14/16 05:53 PT 25.9 SECONDS (9.7-12.2) H 10/13/16 05:59 INR 2.2 10/13/16 05:59 APTT 35 SECONDS (21-34) H D 10/03/16 07:48 - Constitutional Appears: Chronically Ill - Head Exam Head Exam: ATRAUMATIC, NORMOCEPHALIC - Eye Exam Eye Exam: EOMI, Normal appearance. absent: Scleral icterus - ENT Exam ENT Exam: Mucous Membranes Moist - Neck Exam Neck Exam: absent: Tenderness - Respiratory Exam Respiratory Exam: Chest Wall Tenderness, Decreased Breath Sounds, Prolonged Expiratory Phase. absent: Wheezes - Cardiovascular Exam Cardiovascular Exam: RRR, +S1, +S2 - GI/Abdominal Exam GI & Abdominal Exam: Soft. absent: Tenderness - Rectal Exam Rectal Exam: Deferred - Extremities Exam Extremities Exam: absent: Calf Tenderness, Pedal Edema - Back Exam Back Exam: absent: CVA tenderness (L), CVA tenderness (R), rash noted - Neurological Exam Neurological Exam: Alert, Awake, CN II-XII Intact, Oriented x3 - Psychiatric Exam Psychiatric exam: Normal Affect, Normal Mood - Skin Skin Exam: absent: Rash Assessment and Plan (1) Lung cancer Status: Acute (2) CAD (coronary artery disease) Status: Acute (3) COPD exacerbation Status: Acute (4) Chronic congestive heart failure Status: Acute (5) Diabetes Status: Acute (6) Hypertension Status: Acute (7) Pulmonary embolism Status: Acute (8) Respiratory failure with hypoxia Status: Acute - Assessment and Plan (Free Text) Assessment: RESP STATUS SLOW IMPROVEMENT., CONT NEB BD., PULM TOILET., MONITOR O2 SAT. AFEBRILE ON AB. CXR REVIEWED., MONITOR INR ON COUMADIN., INCREASE OOB. FOR REHAB. CONT ANALGESIA. PROG POOR. DISCUSSED WITH STAFF.
[2016-10-14] MEDS ORDERED: Lidocaine 1% Inj (20ml) ONE (09:16)
[2016-10-14] MEDS: Fluticasone-Salmeterol 250-50mcg Diskus INH SCH (09:55)
--- NOTE | 2016-10-14 10:02 | PCM.SURG1 ---
Surgeon's Initial Post Op Note - Surgeon's Notes Surgeon: Eugenio Claim Technician: None Type of Anesthesia: Local Pre-Operative Diagnosis: Need for IV access Operative Findings: Patent right basilic vein Post-Operative Diagnosis: Need for IV access Operation Performed: Right basilic vein 4F SL 35cm PICC placed. Specimen/Specimens Removed: None Estimated Blood Loss: EBL {In ML}: 1 Date of Surgery/Procedure: 10/14/16 Time of Surgery/Procedure: 09:50
[2016-10-14] MEDS: Pantoprazole 40 mg EC Tab PO SCH (10:18)
[2016-10-14] MEDS: GlipiZIDE 5 mg SR Tab PO SCH (10:18)
--- NOTE | 2016-10-14 11:11 | CP.PCM.PN ---
Subjective - Date & Time of Evaluation Date of Evaluation: 10/14/16 Time of Evaluation: 10:20 - Subjective Subjective: clinically same Objective - Vital Signs/Intake and Output Vital Signs (last 24 hours): Temp Pulse Resp BP Pulse Ox 98.9 F 109 H 18 115/71 100 10/14/16 07:10 10/14/16 07:10 10/14/16 07:10 10/14/16 07:10 10/14/16 07:10 Intake and Output: 10/14/16 10/14/16 06:59 18:59 Intake Total 820 Output Total 600 Balance 220 - Medications Medications: Current Medications Acetaminophen (Tylenol 325mg Tab) 650 mg PO Q6 PRN PRN Reason: Fever >100.4 F Last Admin: 10/13/16 12:34 Dose: 650 mg Albuterol/Ipratropium (Duoneb 3 Mg/0.5 Mg (3 Ml) Ud) 3 ml INH RQ6 [facility] Last Admin: 10/14/16 07:21 Dose: 3 ml Digoxin (Lanoxin) 0.125 mg PO DAILY@1800 [facility] Last Admin: 10/13/16 18:02 Dose: 0.125 mg Fluconazole (Diflucan) 200 mg PO DAILY [facility] Stop: 10/27/16 16:46 Last Admin: 10/14/16 10:18 Dose: 200 mg Glipizide (Glucotrol Xl) 5 mg PO DAILY [facility] Last Admin: 10/14/16 10:18 Dose: Not Given Piperacillin Sod/Tazobactam Sod (Zosyn 3.375 Gm Iv Premix) 3.375 gm in 50 mls @ 100 mls/hr IVPB Q8 [facility] Last Admin: 10/14/16 05:37 Dose: 100 mls/hr Insulin Aspart (Novolog) 0 unit SC ACHS [facility] PRN Reason: Protocol Last Admin: 10/14/16 07:47 Dose: Not Given Metoprolol Tartrate (Lopressor) 50 mg PO BID [facility] Last Admin: 10/14/16 10:18 Dose: 50 mg Montelukast Sodium (Singulair) 10 mg PO HS [facility] Last Admin: 10/13/16 21:00 Dose: 10 mg Oxycodone/Acetaminophen (Percocet 5/325 Mg Tab) 1 tab PO Q4H PRN PRN Reason: Pain, moderate (4-7) Stop: 10/15/16 22:11 Last Admin: 10/14/16 08:10 Dose: 1 tab Pantoprazole Sodium (Protonix Ec Tab) 40 mg PO DAILY [facility] Last Admin: 10/14/16 10:18 Dose: 40 mg Rosuvastatin Calcium (Crestor) 5 mg PO HS [facility] Last Admin: 10/13/16 21:00 Dose: 5 mg Fluticasone/Salmeterol (Advair Diskus 250/50) 1 puff INH RQ12 [facility] Last Admin: 10/14/16 09:55 Dose: Not Given Senna/Docusate Sodium (Senokot S 50 Mg-8.6 Mg) 2 tab PO QPM [facility] Last Admin: 10/13/16 18:03 Dose: Not Given - Labs Labs: 10/14/16 05:53 10/14/16 05:53 PT 25.9 SECONDS (9.7-12.2) H 10/13/16 05:59 INR 2.2 10/13/16 05:59 APTT 35 SECONDS (21-34) H D 10/03/16 07:48 - Constitutional Appears: Well - Head Exam Head Exam: ATRAUMATIC, NORMAL INSPECTION, NORMOCEPHALIC - Eye Exam Eye Exam: EOMI, Normal appearance, PERRL Pupil Exam: NORMAL ACCOMODATION, PERRL - ENT Exam ENT Exam: Mucous Membranes Moist, Normal Exam - Neck Exam Neck Exam: Full ROM, Normal Inspection. absent: Lymphadenopathy - Respiratory Exam Respiratory Exam: Decreased Breath Sounds - Cardiovascular Exam Cardiovascular Exam: REGULAR RHYTHM, +S1, +S2 - GI/Abdominal Exam GI & Abdominal Exam: Soft, Diminished Bowel Sounds - Rectal Exam Rectal Exam: Deferred Assessment and Plan (1) Acute gout of right knee Status: Acute (2) Acute kidney injury Status: Acute (3) Acute renal insufficiency Status: Acute (4) Anemia Status: Acute (5) Asthma exacerbation Status: Acute (6) Bleeding risk due to Coumadin and aspirin Status: Acute (7) CAD (coronary artery disease) Status: Acute (8) CKD (chronic kidney disease) Status: Acute (9) COPD exacerbation Status: Acute (10) Chest pain Status: Acute (11) Chest pain Status: Acute (12) Chronic congestive heart failure Status: Acute (13) Coagulopathy Status: Acute (14) Dehydration Status: Acute (15) Diabetes Status: Acute (16) Drug toxicity Status: Acute (17) Elevated brain natriuretic peptide (BNP) level Status: Acute (18) Epistaxis Status: Acute (19) Exacerbation of asthma Status: Acute (20) Hyperglycemia Status: Acute (21) Hypertension Status: Acute (22) Hypochloremia Status: Acute (23) Hypokalemia Status: Acute (24) Hypokalemia Status: Acute (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 Status: Acute (26) Lung cancer Status: Acute (27) Lung mass Status: Acute (28) NSTEMI (non-ST elevated myocardial infarction) Status: Acute (29) Pancytopenia due to chemotherapy Status: Acute (30) Pneumonia Status: Acute (31) Pulmonary HTN Status: Acute (32) Pulmonary edema Status: Acute (33) Pulmonary embolism Status: Acute (34) Renal failure Status: Acute (35) Renal insufficiency Status: Acute (36) Respiratory distress Status: Acute (37) Respiratory failure with hypoxia Status: Acute (38) Right knee DJD Status: Acute (39) SOB (shortness of breath) Status: Acute (40) SVT (supraventricular tachycardia) Status: Acute (41) Sepsis Status: Acute (42) Sepsis Status: Acute (43) Septic arthritis Status: Acute (44) Steroid-induced hyperglycemia Status: Acute (45) Symptomatic anemia Status: Acute (46) Tachycardia Status: Acute (47) Troponin level elevated Status: Acute (48) Uncontrolled diabetes mellitus with diabetic nephropathy Status: Acute - Assessment and Plan (Free Text) Plan: Patient for discharge continue Diflucan continue IV Zosyn continue Coumadin for [facility] discussed with the staff and resident
[2016-10-14 11:47] VITALS: PULSE 112
--- NOTE | 2016-10-14 12:01 | CP.PCM.PN ---
Subjective - Date & Time of Evaluation Date of Evaluation: 10/14/16 Time of Evaluation: 11:58 - Subjective Subjective: PT TOLERATED PICC LINE INSERTION WELL THIS MORNING. COMFORTABLE AND HAS NO NEW COMPLAINTS. PT WILL BE D/C TO [facility] UNDER DR. DAVALOS THIS AFTERNOON. DR. CLARK ALSO AWARE OF D/C AND IN AGREEMENT. DR. CLARK WILL FOLLOW ONCE HE RETURNS FROM VACATION. SEE 10/13 NOTE FOR SPECIFIC ABX AND ANTIFUNGAL INSTRUCTIONS PER MY DISCUSSION WITH DR. FRASER. PT IN AGREEMENT WITH PLAN. SW TO ARRANGE TRANSPORTATION FOR D/C. NO FURTHER ORDERS. Objective - Vital Signs/Intake and Output Vital Signs (last 24 hours): Temp Pulse Resp BP Pulse Ox 98.9 F 112 H 18 115/71 100 10/14/16 07:10 10/14/16 08:00 10/14/16 07:10 10/14/16 07:10 10/14/16 07:10 Intake and Output: 10/14/16 10/14/16 06:59 18:59 Intake Total 820 Output Total 600 Balance 220 - Medications Medications: Current Medications Acetaminophen (Tylenol 325mg Tab) 650 mg PO Q6 PRN PRN Reason: Fever >100.4 F Last Admin: 10/13/16 12:34 Dose: 650 mg Albuterol/Ipratropium (Duoneb 3 Mg/0.5 Mg (3 Ml) Ud) 3 ml INH RQ6 [facility] Last Admin: 10/14/16 07:21 Dose: 3 ml Digoxin (Lanoxin) 0.125 mg PO DAILY@1800 [facility] Last Admin: 10/13/16 18:02 Dose: 0.125 mg Fluconazole (Diflucan) 200 mg PO DAILY [facility] Stop: 10/27/16 16:46 Last Admin: 10/14/16 10:18 Dose: 200 mg Glipizide (Glucotrol Xl) 5 mg PO DAILY [facility] Last Admin: 10/14/16 10:18 Dose: Not Given Piperacillin Sod/Tazobactam Sod (Zosyn 3.375 Gm Iv Premix) 3.375 gm in 50 mls @ 100 mls/hr IVPB Q8 [facility] Last Admin: 10/14/16 05:37 Dose: 100 mls/hr Insulin Aspart (Novolog) 0 unit SC ACHS [facility] PRN Reason: Protocol Last Admin: 10/14/16 07:47 Dose: Not Given Metoprolol Tartrate (Lopressor) 50 mg PO BID [facility] Last Admin: 10/14/16 10:18 Dose: 50 mg Montelukast Sodium (Singulair) 10 mg PO HS [facility] Last Admin: 10/13/16 21:00 Dose: 10 mg Oxycodone/Acetaminophen (Percocet 5/325 Mg Tab) 1 tab PO Q4H PRN PRN Reason: Pain, moderate (4-7) Stop: 10/15/16 22:11 Last Admin: 10/14/16 08:10 Dose: 1 tab Pantoprazole Sodium (Protonix Ec Tab) 40 mg PO DAILY [facility] Last Admin: 10/14/16 10:18 Dose: 40 mg Rosuvastatin Calcium (Crestor) 5 mg PO HS [facility] Last Admin: 10/13/16 21:00 Dose: 5 mg Fluticasone/Salmeterol (Advair Diskus 250/50) 1 puff INH RQ12 [facility] Last Admin: 10/14/16 09:55 Dose: Not Given Senna/Docusate Sodium (Senokot S 50 Mg-8.6 Mg) 2 tab PO QPM [facility] Last Admin: 10/13/16 18:03 Dose: Not Given - Labs Labs: 10/14/16 05:53 10/14/16 05:53 PT 25.9 SECONDS (9.7-12.2) H 10/13/16 05:59 INR 2.2 10/13/16 05:59 APTT 35 SECONDS (21-34) H D 10/03/16 07:48
--- NOTE | 2016-10-14 16:01 | CP.PCM.PN ---
Subjective - Date & Time of Evaluation Date of Evaluation: 10/14/16 Time of Evaluation: 16:00 - Subjective Subjective: AFEBRILE, NO SOB COMFORTABLE. sputum +ve for KRISTIAN- GLABRATA CASE DISCUSSED WITH BACK FACER MS DARLENE DAVALOS. Objective - Vital Signs/Intake and Output Vital Signs (last 24 hours): Temp Pulse Resp BP Pulse Ox 98.9 F 112 H 18 115/71 100 10/14/16 07:10 10/14/16 08:00 10/14/16 07:10 10/14/16 07:10 10/14/16 07:10 Intake and Output: 10/14/16 10/14/16 06:59 18:59 Intake Total 820 Output Total 600 Balance 220 - Labs Labs: 10/14/16 05:53 10/14/16 05:53 PT 25.9 SECONDS (9.7-12.2) H 10/13/16 05:59 INR 2.2 10/13/16 05:59 APTT 35 SECONDS (21-34) H D 10/03/16 07:48 - Constitutional Appears: No Acute Distress - Head Exam Head Exam: NORMAL INSPECTION - Eye Exam Eye Exam: EOMI, PERRL - ENT Exam ENT Exam: Normal Oropharynx - Neck Exam Neck Exam: Normal Inspection - Respiratory Exam Respiratory Exam: Rhonchi - Cardiovascular Exam Cardiovascular Exam: REGULAR RHYTHM, +S1, +S2 - GI/Abdominal Exam GI & Abdominal Exam: Soft, Normal Bowel Sounds - Extremities Exam Extremities Exam: absent: Calf Tenderness, Pedal Edema - Neurological Exam Neurological Exam: Awake, CN II-XII Intact, Oriented x3, Reflexes Normal - Skin Skin Exam: Normal Color, Warm Assessment and Plan (1) Sepsis Assessment & Plan: CONTINUE iv ZOSYN 3.375 EVERY 8 HOURLY -10/04/16 X 8DAYS ADD IV DIFLUCAN 200 MG ONCE A DAY DAILY X 14 DAYS DC iv ZYVOX 600 MG EVERY 12 HOURLY FOR [facility] AND [employer]REP COVERAGE. FOLLOW-UP REPEAT CT CHEST IN 4 WEEKS TO EVALUATE CAVITARY LESION SEEN LEFT UPPER LOBE - CAVITARY PNEUMONIA/ NECROTIZING TUMOR. CASE DISCUSSED WITH BACK FACER MS DALEY 10/12 F/U SPUTUM CULTURES. MONITOR LFTS WEEKLY PATIENT ON iv dIFLUCAN. Status: Acute (2) Respiratory distress Status: Acute (3) COPD exacerbation Status: Acute (4) Lung mass Status: Acute (5) Renal insufficiency Status: Acute (6) Lung cancer Status: Acute
--- NOTE | 2016-10-16 11:38 | RAD ---
Procedure: Ultrasound and fluoroscopically placed Right upper extremity PICC. Clinical indication: Long-term IV antibiotics. Technique: The relative risks and indications of the procedure were explained to the patient and written informed consent obtained. The patient was placed supine on the angiographic table and the right arm prepped and draped in the usual sterile fashion. A tourniquet was applied to the right axilla. 1% lidocaine was used to anesthetize the skin and soft tissues at the puncture site above the elbow. The right basilic vein was punctured under direct ultrasound guidance with a micropuncture set. A permanent image was stored. A 0.018 guidewire was advanced centrally and used to measure the length to the SVC/RA junction. A 4 Ivorian single-lumen PICC, size 35 cm, was advanced to the SVC/RA junction under fluoroscopic guidance. The catheter was flushed and secured. The patient tolerated the procedure well. Postprocedure chest image was obtained to ensure location of the catheter tip at the SVC right atrial junction. Impression: Ultrasound and fluoroscopically placed right upper extremity PICC. A 4 Ivorian single-lumen PICC, size 35 cm was advanced to the SVC/RA junction. PICC ready for use.
--- NOTE | 2016-11-05 15:50 | DS ---
HISTORY OF PRESENT ILLNESS: This patient is a 71-year-old female with history of pulmonary embolism, hypertension, and lung CA with significant metastasis, who was recently admitted, was complaining of pain to the left side of the chest associated with shortness of breath. The patient was evaluated in the emergency room and the patient received medication without relief, and the patient was admitted. REVIEW OF SYSTEMS: Recently had shortness of breath and also recently had the chest pain. PHYSICAL EXAMINATION: Tachycardic with some rales bilaterally in the lungs. HOSPITAL COURSE: The patient had a Cardiology consult with Dr. Bailey and also, a Pulmonary consult with Dr. Casillas. The patient had an ID consult with Dr. Miguel A Snow. The patient was put on medications including Solu-Medrol and also was getting Proventil nebulizer, Atrovent, and pain medications. The patient also was put on Coumadin therapy progressively for 1 day with no improvement, but finally, the patient was consulted to Dr. Garcia Wharton since I ordered medications during which the patient's current medication was continued and the patient will be discharged to [facility] for antiplatelet therapy. Isak Mark MD
== END 2016-10-14 13:28 | DRG 871 ==
LOC: C.ER 07:26 → C.9E 09:03 → C.3T 14:50 → C.9E 15:40 → C.6T 17:56
PROVIDERS: ADMIT Specialist; ATTEND Specialist
PROC: 02HV33Z Insertion of Infusion Device into Superior Vena Cava, Percutaneous Approach (ICD-10-PCS; principal; 2016-10-14)
DX: A41.9 Sepsis, unspecified organism (principal); J96.21 Acute and chronic respiratory failure with hypoxia; B37.1 Pulmonary candidiasis; N17.9 Acute kidney failure, unspecified; C34.11 Malignant neoplasm of upper lobe, right bronchus or lung; J44.0 Chronic obstructive pulmonary disease with (acute) lower respiratory infection; C77.9 Secondary and unspecified malignant neoplasm of lymph node, unspecified; I13.0 Hypertensive heart and chronic kidney disease with heart failure and stage 1 through stage 4 chronic kidney disease, or unspecified chronic kidney disease; E86.0 Dehydration; I50.9 Heart failure, unspecified; J44.1 Chronic obstructive pulmonary disease with (acute) exacerbation; E87.1 Hypo-osmolality and hyponatremia; E11.22 Type 2 diabetes mellitus with diabetic chronic kidney disease; E11.649 Type 2 diabetes mellitus with hypoglycemia without coma; E11.65 Type 2 diabetes mellitus with hyperglycemia; M10.9 Gout, unspecified; D63.0 Anemia in neoplastic disease; I49.9 Cardiac arrhythmia, unspecified; N18.2 Chronic kidney disease, stage 2 (mild); R00.0 Tachycardia, unspecified; E78.00 Pure hypercholesterolemia, unspecified; K59.00 Constipation, unspecified; T45.515A Adverse effect of anticoagulants, initial encounter; I25.10 Atherosclerotic heart disease of native coronary artery without angina pectoris; K76.9 Liver disease, unspecified; Z87.891 Personal history of nicotine dependence; Z86.711 Personal history of pulmonary embolism; Z87.442 Personal history of urinary calculi; Z95.5 Presence of coronary angioplasty implant and graft; Z79.01 Long term (current) use of anticoagulants; Z87.01 Personal history of pneumonia (recurrent); Z92.21 Personal history of antineoplastic chemotherapy; Z79.899 Other long term (current) drug therapy; Z85.118 Personal history of other malignant neoplasm of bronchus and lung